=== PATIENT | female | born 1940 | race Caucasian/White ===

== ENCOUNTER → 2016-09-17 | Outpatient (CLI) | payer BC ==
[~2016-09-17] MED LIST: ACET500T57 PO; ALBU18002 INH; ALBU1AER9 INH; AMIT50TA3 PO; ASPI-435 PO; ASTN NAE; ATEN-174 PO; ATRIN INH; ATV/1 PO; AZEL137S6 NAE; B-CO1TAB29 PO; BUTTP TOP; CALC-354 PO; CHLO0.1222 PO; CLOP1TAB5 PO; CPR/500 PO; CYCL0.052 OPB; FERR1TAB23 PO; FEXO1TAB46 PO; FRS/80 PO; GABA1CAP PO; GABA300C19 PO; GUAI1TAB55 PO; HYDR0.5C TOP; HYDR1LOT6 TP; IMD/2 PO; IPRA17AE2 INH; KETO2CRE14 TOP; KETO2SHA5 TOP; L-Thyroxine PO; LEVO200T PO; LEVO50TA PO; LORA-741 PO; MCRK20 PO; MENTOIN TOP; METH1TAB5 PO; METO2.5T PO; MIRA1TAB3 PO; MOME6000 NAE; MONT1TAB3 PO; MULTTAB58 PO; NSNN50 NAE; NYSCR30 TOP; NYST100010 TOP; NZRCR TOP; PANT40TA PO; POLY1DRO2 OPB; POLY1POW2 PO; POLY1SOL6 OPB; POTA20TA13 PO; PRAV40TA2 PO; RANI150C4 PO; REPA1TAB10 PO; SERT100T PO; SPIR25TA89 PO; TAMS0.4C38 PO; TRAM-10 PO; TRAZ1TAB8 PO; ZINC40OI TOP; [UNRECOGNIZED DRUG - CODE] BU
== END | disposition home or self-care (01) ==
LOC: C.LABSPEC 16:53
PROVIDERS: ATTEND Internal Medicine
DX: J11.1 Influenza due to unidentified influenza virus with other respiratory manifestations (principal)

== ENCOUNTER → 2016-12-16 | Outpatient (CLI) | payer BC ==
[~2016-12-16] MED LIST changes: +GABA-1218 PO; -GABA300C19 PO; +METH-1305 PO; -METH1TAB5 PO; -TRAZ1TAB8 PO; +TRAZ1TAB9 PO
[2016-12-16 14:38] LABS: BASO % 0.3 %; BASO ABS # 0.02 K/uL (0-0.2); COMPLETE YES; EOS % 3.6 %; HEMATOCRIT 34.9 % (37-47); IG% 0.4 %; LYMPH % 17.8 %; LYMPH ABS # 1.23 K/uL (1.2-3.4); MEAN CORPUSCULAR HEMOGLOBIN 29.9 pg (25-34); MEAN CORPUSCULAR HGB CONC 34.4 g/dl (32-36); MEAN PLATELET VOLUME 9.5 fL (7.4-10.4); MONO % 9.6 %; NEUT % 68.3 %; PLATELET COUNT 222 K/uL (130-400); RED BLOOD COUNT 4.01 M/uL (4.2-5.4); WHITE BLOOD COUNT 6.91 K/uL (4.8-10.8)
[2016-12-16 14:46] LABS: ALT/SGPT 23 U/L (12-78); BLOOD UREA NITROGEN 10 mg/dl (7-18); BUN/CREATININE RATIO 9.7 (10-20); CARBON DIOXIDE 30 mmol/L (21-32); CHLORIDE 95 mmol/L (98-107); CHOLESTEROL 144 mg/dl (0-200); GLUCOSE 93 mg/dl (70-99); POTASSIUM 4.9 mmol/L (3.5-5.1); SODIUM 132 mmol/L (136-145)
[2016-12-16 14:56] LABS: ALB/GLOB RATIO 1.3 (0.9-2); ALKALINE PHOSPHATASE 64 U/L (45-117); AST/SGOT 20 U/L (15-37); CHOLESTEROL/HDL RATIO 2.4; HDL CHOLESTEROL 60 mg/dl; LDL CHOLESTEROL CALCULATED 63 mg/dl; TRIGLYCERIDES 103 mg/dl (0-150); VERY LOW DENSITY LIPOPROT CALC 21 mg/dl
[2016-12-17 05:53] LABS: ESTIMATED AVERAGE GLUCOSE 114 mg/dl; HA1C FLAG Normal (Normal)
== END ==
LOC: C.LAB1850 12:44
PROVIDERS: ATTEND Internal Medicine
DX: E03.9 Hypothyroidism, unspecified (principal); E78.5 Hyperlipidemia, unspecified; E11.59 Type 2 diabetes mellitus with other circulatory complications; D64.9 Anemia, unspecified; M81.0 Age-related osteoporosis without current pathological fracture

== ENCOUNTER → 2017-01-05 | Outpatient (CLI) | payer BC ==
[2017-01-05 09:35] LABS: BLOOD UREA NITROGEN 14 mg/dl (7-18); BUN/CREATININE RATIO 14.1 (10-20); CARBON DIOXIDE 30 mmol/L (21-32); CHLORIDE 96 mmol/L (98-107); CREATININE 0.98 mg/dl (0.60-1.20); GLUCOSE 108 mg/dl (70-99); POTASSIUM 3.2 mmol/L (3.5-5.1); SODIUM 134 mmol/L (136-145)
[2017-01-05 09:54] LABS: CALCIUM 8.8 mg/dl (8.5-10.1)
== END | disposition home or self-care (01) ==
LOC: C.LABSPEC 08:24
PROVIDERS: ATTEND Internal Medicine
DX: I50.32 Chronic diastolic (congestive) heart failure (principal)

== ENCOUNTER → 2017-04-06 | Outpatient (CLI) | payer BC ==
[~2017-04-06] MED LIST changes: -GABA-1218 PO; +GABA300C19 PO; -METH-1305 PO; +METH1TAB5 PO; +TRAZ1TAB8 PO; -TRAZ1TAB9 PO
[2017-04-06 17:29] LABS: URINE APPEARANCE TURBID (CLEAR); URINE BILIRUBIN NEG (NEG); URINE COLOR DK YELLOW; URINE EPITHELIAL CELL AUTO >30 /lpf (0-5); URINE NITRITE NEG (NEG); URINE PH 6.5 (4.5-7.5); URINE SPECIFIC GRAVITY 1.022 (1.000-1.030); UROBILINOGEN NEG (NEG); ZZUR CULT IF INDIC CLEAN CATCH YES
[2017-04-06 17:41] LABS: MANUAL MICROSCOPIC REQUIRED? NO; REVIEW REQ? YES
== END | disposition home or self-care (01) ==
LOC: C.LAB1850 15:47
PROVIDERS: ATTEND Registered Nurse
DX: R10.9 Unspecified abdominal pain (principal); E87.6 Hypokalemia

== ENCOUNTER → 2017-04-08 | Outpatient (CLI) | payer BC ==
--- NOTE | 2017-04-08 09:29 | DIAGNOSTIC IMAGING REPORT ---
(RENAL)RETROPERITON COMP CLINICAL HISTORY: 76 years-old Female presenting with FLANK PAIN, MICROSCOPIC HEMATURIA. TECHNIQUE: Real-time grayscale and limited color Doppler ultrasound imaging of the kidneys and bladder was performed. COMPARISON: CT from 01/23/2010. FINDINGS: Right kidney: Normal echogenicity. Right kidney measures 11.2 cm. No hydronephrosis. No convincing evidence of calculus or mass. Left kidney: Normal echogenicity, although suggestion of expansion of the renal sinus fat with slight cortical thinning. Left kidney measures 11.9 cm. No hydronephrosis. No convincing evidence of calculus or mass. Bladder: Protrusion along the posterior bladder wall with hyperechogenic bowel mucosa and intraluminal stool indicating bowel origin. Bilateral ureteral jets present. Other: None. IMPRESSION: 1. Essentially normal renal ultrasound. No obstruction. 2. Possible constipation. Electronically signed by: Michael Mast M.D. 04/08/2017 9:27 AM Dictated Date/Time: 04/08/2017 9:20 AM
[2017-04-08 10:09] LABS: ALT/SGPT 20 U/L (12-78); AST/SGOT 18 U/L (15-37); BLOOD UREA NITROGEN 15 mg/dl (7-18); BUN/CREATININE RATIO 15.5 (10-20); CALCIUM 8.6 mg/dl (8.5-10.1); CARBON DIOXIDE 33 mmol/L (21-32); CHLORIDE 90 mmol/L (98-107); GLUCOSE 109 mg/dl (70-99); POTASSIUM 3.4 mmol/L (3.5-5.1); SODIUM 129 mmol/L (136-145)
[2017-04-08 10:13] LABS: ALB/GLOB RATIO 1.1 (0.9-2); ALKALINE PHOSPHATASE 67 U/L (45-117)
== END | disposition home or self-care (01) ==
LOC: C.ULTR 07:46
PROVIDERS: ATTEND Internal Medicine
DX: R31.29 Other microscopic hematuria (principal); R10.9 Unspecified abdominal pain; I10 Essential (primary) hypertension

== ENCOUNTER 2017-04-12 21:21 | Emergency (ER) | payer BC ==
[~2017-04-12] VITALS: Ht 153.7 cm; Wt 109.7 kg
[~2017-04-12 21:21] MED LIST changes: -ALBU18002 INH; -ASTN NAE; -ATRIN INH; -BUTTP TOP; -CPR/500 PO; -CYCL0.052 OPB; -GABA300C19 PO; -GUAI1TAB55 PO; -HYDR1LOT6 TP; -IMD/2 PO; -L-Thyroxine PO; -LORA-741 PO; -METH1TAB5 PO; -MIRA1TAB3 PO; -MOME6000 NAE; -NYSCR30 TOP; -NYST100010 TOP; -NZRCR TOP; -POLY1DRO2 OPB; -POLY1POW2 PO; -POLY1SOL6 OPB; -POTA20TA13 PO; -TAMS0.4C38 PO; -TRAM-10 PO; -ZINC40OI TOP; -[UNRECOGNIZED DRUG - CODE] BU
[2017-04-12 21:29] VITALS: TEMP 36.5; Ht 153.7 cm; Wt 109.7 kg
[2017-04-12] MEDS ORDERED: FENTANYL CITRATE INJ 50 MCG/1 ML 2 ML VIAL IV STA (22:05)
--- NOTE | 2017-04-12 22:13 | EMERGENCY ROOM VISIT NOTE ---
History Report prepared by Nellie: Annemarie Schaffer Under the Supervision of: Dr. Irineo Brooke M.D. First contact with patient: 21:35 Chief Complaint: ABDOMINAL PAIN Stated Complaint: ABD PAIN, NAUSEA, DISTENTION History of Present Illness The patient is a 76 year old female who presents to the Emergency Room with complaints of constant abdominal pain beginning 3 weeks ago. The patient's daughter states that the patient started complaining of some right sided flank pain and abdominal pain 3 weeks ago. She reports that she went to see her PCP and got a urine test that was positive and was put on antibiotics. She notes that she got an ultrasound of her kidneys that was normal but showed stool and her PCP advised follow up with gastroenterology. The patient states that she has decreased appetite and has a feeling of blockage in her stomach when she eats. She notes that she has diarrhea and some worsened leg swelling. She complains of nausea and intermittent chest tightness with her anxiety. The patient denies any shortness of breath and vomiting. She notes that she has a history of decreased blood flow in her omentum 7 years ago, PE, prolapsed valve , TIA, and UTI. She states that she is on a water pill and blood thinners. She notes no history of gallstones, kidney stones, cholecystectomy, and appendectomy. Source of History: patient Onset: 3 weeks ago Position: abdomen Timing: constant Associated Symptoms: + chest pain, + nausea, + diarrhea, No SOB, No vomiting Note: Pt complains of flank pain, decreased appetite, and leg swelling. Review of Systems See HPI for pertinent positives and negatives. A total of ten systems were reviewed and were otherwise negative. Past Medical & Surgical Medical Problems: (1) Cardiac valve prolapse (2) Diabetes (3) Pulmonary embolism (4) TIA (transient ischemic attack) (5) UTI (urinary tract infection) Family History No pertinent family history stated. Social History Smoking Status: Former Smoker Alcohol Use: none Drug Use: none Marital Status: Housing Status: assisted living Occupation Status: retired Current/Historical Medications Scheduled Albuterol Sulfate (Proair Respiclick), 2 PUFFS INH QID Amitriptyline Hcl (Amitriptyline Hcl), 25 MG PO HS Aspirin (Aspirin 81), 81 MG PO DAILY Atenolol (Tenormin), 50 MG PO DAILY Azelastine Hcl (Astelin Nasal [place]), 2 SPRAYS [place]CADIO BID B-Complex Vitamins (Vitamin B-Complex), 1 TAB PO DAILY Calcium Carbonate-Cholecalcife (Caltrate 600+D), 1 TAB PO BID Ciprofloxacin (Ciprofloxacin HCl), 500 MG PO BID Clopidogrel Bisulfate (Plavix), 75 MG PO DAILY Cyclosporine (Ophth) (Restasis), 1 DROP OPB BID Ferrous Sulfate (Iron), 325 MG PO 3XWK Gabapentin (Neurontin), 300 MG PO TID Hydrocortisone (Topical) (Hydrocortisone), 1 APPLN TP BID Ipratropium [place] (Atrovent Hfa), 2 PUFFS INH QID Ketoconazole (Topical) (Nizoral), 1 APPLN TOP DAILY Methenamine Hippurate (Methenamine Hippurate), 1 GM PO DAILY Metolazone (Zaroxolyn), 2.5 MG PO 2XWK Mirabegron (Myrbetriq Er), 50 MG PO DAILY Mometasone Furoate (Nasal) (Mometasone Furoate), 1 SPRAY ARCADIO BID Montelukast Sodium (Singulair), 10 MG PO HS Multiple Vitamin (Multivitamin), 1 TAB PO DAILY Pantoprazole Sodium (Protonix), 40 MG PO BID Polyethylene Glycol-Propylene (Systane Gel), 1 DROP OPB HS Polyethylene Glycol-Propylene (Systane Ultra), 1 DROP OPB TID Potassium Chloride Microencaps (Potassium Chloride Er), 30 MEQ PO BID Ranitidine Hcl (Ranitidine Hcl), 150 MG PO BID Sertraline Hcl (Zoloft), 200 MG PO DAILY Spironolactone (Aldactone), 25 MG PO DAILY Tamsulosin Hcl (Flomax), 0.4 MG PO DAILY Trazodone Hcl (Desyrel), 200 MG PO HS [L-Thyroxine], 250 MCG PO DAILY Scheduled PRN Acetaminophen (Acetaminophen), 1,000 MG PO Q8 PRN for Pain Artificial Saliva (Act Dry Mouth), 1 TERRENCE BU UD PRN for Dry Mouth Chlorhexidine Gluconate (Mouth (Peridex), 2.5 ML PO UD PRN for Oral Health Guaifenesin Ext Rel (Mucinex Ext Rel), 600 MG PO Q12 PRN for Congestion Ketoconazole (Ketoconazole), 1 APPLN TOP UD PRN for Skin Irritation Loperamide Hcl (Imodium), 2 MG PO UD PRN for Loose Stools Lorazepam (Ativan), 0.5 MG PO HS PRN for Anxiety/Insomnia Menthol-Zinc Oxide (Calmoseptine), 1 APPLN TOP TID PRN for Skin Breakdown Prevention Metolazone (Zaroxolyn), 2.5 MG PO DAILY PRN for Weight Gain >2 Pounds Nystatin (Nystatin Cream), 1 APPLN TOP BID PRN for Excoriation Nystatin (Topical) (Nystop), 1 APPLN TOP BID PRN for Rash Polyethylene Glycol 3350 (Bulk (Polyethylene Glycol 3350), 17 GM PO DAILY PRN for Constipation Tramadol (Ultram), 50 MG PO BID PRN for Severe Pain Zinc Oxide (Topical) (Boudreauxs Butt Paste), 1 APPLN TOP UD PRN for Pressure Ulcer Prevention Zinc Oxide (Topical) (Desitin), 1 APPLN TOP UD PRN for Protective Barrier Allergies Coded Allergies: KODAK Inhibitors (Verified Allergy, Unknown, ?, 04/12/17) Physical Exam Vital Signs Date Time Temp Pulse Resp B/P (MAP) Pulse Ox O2 Delivery O2 Flow Rate FiO2 04/13/17 03:10 76 18 144/76 96 04/13/17 00:20 68 20 114/72 95 Room Air 04/12/17 22:25 64 20 90/71 94 Room Air 04/12/17 22:25 94 Room Air 04/12/17 21:29 36.5 65 18 127/63 97 Room Air Physical Exam GENERAL: Awake, alert, chronically ill-appearing, fatigue, in no distress HENT: Normocephalic, atraumatic. Dry mucous membranes. EYES: Normal conjunctiva. Sclera non-icteric. NECK: Supple. No nuchal rigidity. FROM. No JVD. RESPIRATORY: Decreased sounds in bases with isolated wheeze. CARDIAC: Regular rate, normal rhythm. Extremities warm and well perfused. Pulses equal. ABDOMEN: Soft, non-distended. No tenderness to palpation. No rebound or guarding. No masses. RECTAL: Deferred. MUSCULOSKELETAL: Chest examination reveals no tenderness. The back is symmetrical on inspection without obvious abnormality. Abdomen is mildly diffusely tender, no peritoneal signs, bilateral CVA tenderness. LOWER EXTREMITIES: Calves are equal size bilaterally and non-tender. 1+ pitting edema bilateral lower extremities. No discoloration. NEURO: Normal sensorium. No sensory or motor deficits noted. SKIN: No rash or jaundice noted. Medical Decision & Procedures ER Provider Diagnostic Interpretation: Radiology results as stated below per my review and radiologist interpretation: CHEST ONE VIEW PORTABLE FINDINGS: Mild prominence of the cardiac silhouette, unchanged. Mildly low lung volumes with hypoventilatory changes. Mild bronchial wall thickening suggested. Minimal right basilar opacity may be present. No large effusion or pneumothorax. Previously noted fracture of the left 10th rib is not apparent. Metallic foreign body projects over the base of the neck, possibly dental device. IMPRESSION: 1. Mildly low lung volumes with hypoventilatory changes. 2. Possible right basilar atelectasis. Electronically signed by: Michael Mast M.D. 04/12/2017 10:39 PM Dictated Date/Time: 04/12/2017 10:[address] ABDOMEN & PELVIS: No evidence of bowel obstruction or CT findings to suggest ischemic bowel. No pneumatosis, portal venous gas, free intraperitoneal air or significant bowel wall thickening. Moderate Stool throughout the colon with air-stool levels which may indicate stasis/constipation or diarrheal state. Distal colon is underdistended which limits evaluation for subtle wall thickening. Recommend clinical correlation. Appendix is prominent measuring up to 1cm in maximum diameter. However, appendix contains air and stool similar to the adjacent cecum. No periappendiceal inflammatory changes are present. Acute appendicitis is unlikely although clinical correlation is recommended. Status post hysterectomy. Device is present within vaginal canal, likely a pessary device. Scattered atherosclerotic vascular disease. No AAA. Laboratory Results 04/12/17 22:15 Red Blood Count 4.00, Mean Corpuscular Volume 86.8, Mean Corpuscular Hemoglobin 29.5, Mean Corpuscular Hemoglobin Concent 34.0, Mean Platelet Volume 9.0, Neutrophils (%) (Auto) 68.2, Lymphocytes (%) (Auto) 20.4, Monocytes (%) (Auto) 7.4, Eosinophils (%) (Auto) 3.4, Basophils (%) (Auto) 0.3, Neutrophils # (Auto) 5.05, Lymphocytes # (Auto) 1.51, Monocytes # (Auto) 0.55, Eosinophils # (Auto) 0.25, Basophils # (Auto) 0.02 04/12/17 22:15 Test 04/12/17 22:15 8/2/17 00:05 White Blood Count 7.40 K/uL (4.8-10.8) Red Blood Count 4.00 M/uL (4.2-5.4) Hemoglobin 11.8 g/dL (12.0-16.0) Hematocrit 34.7 % (37-47) Mean Corpuscular Volume 86.8 fL (80-100) Mean Corpuscular Hemoglobin 29.5 pg (25-34) Mean Corpuscular Hemoglobin Concent 34.0 g/dl (32-36) Platelet Count 215 K/uL (130-400) Mean Platelet Volume 9.0 fL (7.4-10.4) Neutrophils (%) (Auto) 68.2 % Lymphocytes (%) (Auto) 20.4 % Monocytes (%) (Auto) 7.4 % Eosinophils (%) (Auto) 3.4 % Basophils (%) (Auto) 0.3 % Neutrophils # (Auto) 5.05 K/uL (1.4-6.5) Lymphocytes # (Auto) 1.51 K/uL (1.2-3.4) Monocytes # (Auto) 0.55 K/uL (0.11-0.59) Eosinophils # (Auto) 0.25 K/uL (0-0.5) Basophils # (Auto) 0.02 K/uL (0-0.2) RDW Standard Deviation 42.8 fL (36.4-46.3) RDW Coefficient of Variation 13.4 % (11.5-14.5) Immature Granulocyte % (Auto) 0.3 % Immature Granulocyte # (Auto) 0.02 K/uL (0.00-0.02) Anion Gap 8.0 mmol/L (3-11) Est Creatinine Clear Calc Drug Dose 54.3 ml/min Estimated GFR () 63.4 Estimated GFR (Non- 54.7 BUN/Creatinine Ratio 12.5 (10-20) Lactic Acid Level 1.0 mmol/L (0.4-2.0) Calcium Level 8.7 mg/dl (8.5-10.1) Total Bilirubin 0.3 mg/dl (0.2-1) Direct Bilirubin < 0.1 mg/dl (0-0.2) Aspartate Amino Transf (AST/SGOT) 23 U/L (15-37) Alanine Aminotransferase (ALT/SGPT) 23 U/L (12-78) Alkaline Phosphatase 70 U/L (45-117) Troponin I < 0.015 ng/ml (0-0.045) Pro-B-Type Natriuretic Peptide 360 pg/ml (0-1800) Total Protein 7.6 gm/dl (6.4-8.2) Albumin 3.9 gm/dl (3.4-5.0) Lipase 128 U/L (73-393) Urine Color YELLOW Urine Appearance CLEAR (CLEAR) Urine pH 6.5 (4.5-7.5) Urine Specific Ferdinand 1.024 (1.000-1.030) Urine Protein NEG (NEG) Urine Glucose (UA) NEG (NEG) Urine Ketones NEG (NEG) Urine Occult Blood NEG (NEG) Urine Nitrite NEG (NEG) Urine Bilirubin NEG (NEG) Urine Urobilinogen NEG (NEG) Urine Leukocyte Esterase NEG (NEG) Urine WBC (Auto) 0 /hpf (0-5) Urine RBC (Auto) 0-4 /hpf (0-4) Urine Hyaline Casts (Auto) 0 /lpf (0-5) Urine Epithelial Cells (Auto) 5-10 /lpf (0-5) Urine Bacteria (Auto) NEG (NEG) Urine Osmolality 252 mOms/kg (500-800) Laboratory results reviewed by me Medications Administered Medications (Trade) Dose Ordered Sig/Samir Route Start Time Stop Time Status Last Admin Dose Admin Fentanyl Citrate (Fentanyl Inj) 50 mcg NOW STAT IV 04/12/17 22:05 04/12/17 22:07 DC 04/12/17 22:21 50 MCG ECG Indication: abdominal pain Rate (beats per minute): 62 Rhythm: normal sinus Findings: no acute ischemic change, other (normal axis) Comparison ECG Date: 24-JAN-2010 Change: no significant change ED Course 2134: The patient was evaluated in room C9. A complete history and physical exam was performed. 2204: Fentanyl Inj 50mcg IV. I reevaluated the patient. Discussed results and discharge instructions: She verbalized understanding and agreement. The patient is ready for discharge. Medical Decision I reviewed the patient's past medical history, medications, and the nursing notes as described above. Differential diagnosis includes renal stone, pyelonephritis, mesenteric ischemia , bowel obstruction, diverticulitis, less likely AAA or ACS. Patient is a 76-year-old woman with a past medical history of ischemic mentum present or department with worsening abdominal pain over the past couple of days in the setting of pain that has been ongoing for several weeks. Rash to the emergency department mildly uncomfortable but in no acute distress. Patient is afebrile with stable vital signs otherwise. On exam the patient has generalized abdominal tenderness as well as bilateral CVA tenderness to palpation. Patient also reports constant sensation of chest pressure as well. However EKG unremarkable and chest x-ray with atelectasis and otherwise negative negative. WBC and lactate within normal limits. Trop negative in the setting of several days of constant sx. UA negative. CT scan negative for any acute findings. Sodium 129 today which was unchanged from several days prior. Urine osmolality 200s indicating the patient is not concentrating her urine just a component of SIADH. Patient instructed to avoid excessive water intake until she can be reevaluated by her doctor. Discussed with patient and patient' s daughter option for hospital observation versus discharge and close PCP follow -up. Patient feeling okay for home and agreeable for discharge. Patient discharged per instructions. Medication Reconcilliation Current Medication List: was personally reviewed by me Blood Pressure Screening Patient's blood pressure: Normal blood pressure Blood pressure disposition: Did not require urgent referral Impression Primary Impression: Generalized abdominal pain Additional Impression: Hyponatremia Scribe Attestation The scribe's documentation has been prepared under my direction and personally reviewed by me in its entirety. I confirm that the note above accurately reflects all work, treatment, procedures, and medical decision making performed by me. Departure Information Dispostion Home / Self-Care Referrals No Doctor, Assigned (PCP) Patient Instructions Abdominal Pain, ED Hyponatremia, Hyponatremia Dc, [facility] Additional Instructions Please follow up with your primary care physician in the next 1-3 days for reevaluation and to repeat your sodium test, and possible nephrology referral. Your sodium was 129 today which was unchanged from 3 days ago. Otherwise, your exam, lab results, and CT scan did not show signs of an emergent condition at this time. Avoid excessive water intake as this may make your sodium level declined. Return to the emergency department for worsening symptoms as described in the accompanying instructions. Problem Qualifiers
[2017-04-12] MEDS ORDERED: OPTIRAY 320 IV PRN (22:15)
[2017-04-12 22:25] VITALS: O2SAT 94
[2017-04-12 22:31] LABS: BASO % 0.3 %; BASO ABS # 0.02 K/uL (0-0.2); COMPLETE YES; EOS % 3.4 %; HEMATOCRIT 34.7 % (37-47); IG% 0.3 %; LYMPH % 20.4 %; LYMPH ABS # 1.51 K/uL (1.2-3.4); MEAN CELL VOLUME 86.8 fL (80-100); MEAN CORPUSCULAR HEMOGLOBIN 29.5 pg (25-34); MONO % 7.4 %; NEUT % 68.2 %; PLATELET COUNT 215 K/uL (130-400)
[2017-04-12] MEDS ORDERED: ASTN NAE (22:35)
[2017-04-12] MEDS ORDERED: CPR/500 PO (22:35)
[2017-04-12] MEDS ORDERED: ATRIN INH (22:35)
[2017-04-12] MEDS ORDERED: BUTTP TOP (22:35)
[2017-04-12] MEDS ORDERED: [UNRECOGNIZED DRUG - CODE] BU (22:35)
[2017-04-12] MEDS ORDERED: MENTOIN TOP (22:35)
--- NOTE | 2017-04-12 22:41 | DIAGNOSTIC IMAGING REPORT ---
CHEST ONE VIEW PORTABLE CLINICAL HISTORY: 76 years-old Female presenting with cp, nausea. TECHNIQUE: Portable upright AP view of the chest was obtained. COMPARISON: 06/27/2011. FINDINGS: Mild prominence of the cardiac silhouette, unchanged. Mildly low lung volumes with hypoventilatory changes. Mild bronchial wall thickening suggested. Minimal right basilar opacity may be present. No large effusion or pneumothorax. Previously noted fracture of the left 10th rib is not apparent. Metallic foreign body projects over the base of the neck, possibly dental device. IMPRESSION: 1. Mildly low lung volumes with hypoventilatory changes. 2. Possible right basilar atelectasis. Electronically signed by: Michael Mast M.D. 04/12/2017 10:39 PM Dictated Date/Time: 04/12/2017 10:36 PM
[2017-04-12 22:52] LABS: BLOOD UREA NITROGEN 13 mg/dl (7-18); BUN/CREATININE RATIO 12.5 (10-20); CALCIUM 8.7 mg/dl (8.5-10.1); CARBON DIOXIDE 28 mmol/L (21-32); CHLORIDE 93 mmol/L (98-107); GLUCOSE 109 mg/dl (70-99); SODIUM 129 mmol/L (136-145)
[2017-04-12 22:53] LABS: ALT/SGPT 23 U/L (12-78)
[2017-04-12] MEDS ORDERED: ZINC40OI TOP (22:53)
[2017-04-12] MEDS ORDERED: L-Thyroxine PO (22:53)
[2017-04-12] MEDS ORDERED: HYDR1LOT6 TP (22:53)
[2017-04-12] MEDS ORDERED: NZRCR TOP (22:53)
[2017-04-12] MEDS ORDERED: GABA300C19 PO (22:53)
[2017-04-12] MEDS ORDERED: IMD/2 PO (22:53)
[2017-04-12] MEDS ORDERED: METH1TAB5 PO (22:53)
[2017-04-12] MEDS ORDERED: LORA-741 PO (22:53)
[2017-04-12 22:58] LABS: ALKALINE PHOSPHATASE 70 U/L (45-117); AST/SGOT 23 U/L (15-37)
[2017-04-12] MEDS ORDERED: GUAI1TAB55 PO (22:59)
[2017-04-12] MEDS ORDERED: MIRA1TAB3 PO (22:59)
[2017-04-12] MEDS ORDERED: MOME6000 NAE (23:04)
[2017-04-12] MEDS ORDERED: POLY1POW2 PO (23:04)
[2017-04-12] MEDS ORDERED: POTA20TA13 PO (23:04)
[2017-04-12] MEDS ORDERED: NYSCR30 TOP (23:11)
[2017-04-12] MEDS ORDERED: NYST100010 TOP (23:11)
[2017-04-12] MEDS ORDERED: TRAM-10 PO (23:16)
[2017-04-12] MEDS ORDERED: TAMS0.4C38 PO (23:16)
[2017-04-12] MEDS ORDERED: ALBU18002 INH (23:18)
[2017-04-12] MEDS ORDERED: POLY1DRO2 OPB (23:22)
[2017-04-12] MEDS ORDERED: POLY1SOL6 OPB (23:22)
[2017-04-12] MEDS ORDERED: CYCL0.052 OPB (23:22)
[2017-04-13 00:42] LABS: URINE APPEARANCE CLEAR (CLEAR); URINE BILIRUBIN NEG (NEG); URINE COLOR YELLOW; URINE NITRITE NEG (NEG); URINE PH 6.5 (4.5-7.5); URINE SPECIFIC GRAVITY 1.024 (1.000-1.030); UROBILINOGEN NEG (NEG); ZZURINE CULT IF INDIC CATH NO
[2017-04-13 00:43] LABS: MANUAL MICROSCOPIC REQUIRED? NO; REVIEW REQ? NO
[2017-04-13 03:10] VITALS: BP 144/76; PULSE 76; O2SAT 96
--- NOTE | 2017-04-13 07:52 | DIAGNOSTIC IMAGING REPORT ---
CT SCAN OF THE ABDOMEN AND PELVIS WITH IV CONTRAST CLINICAL HISTORY: Generalized abdominal pain. COMPARISON STUDY: Abdominal CT dated 01/23/2010 TECHNIQUE: Following the IV administration of 121 cc of Optiray 320, CT scan of the abdomen and pelvis is performed from the lung bases to the proximal femora. Images are reviewed in the axial, sagittal, and coronal planes. IV contrast was administered without complication. Automated dose control exposure was utilized. A dose lowering technique was utilized adhering to the principles of ALARA. CT DOSE: 1488.47 mGy.cm FINDINGS: Lung bases: The heart is top normal in size and without pericardial effusion. Coronary arteries are densely calcified. There is a small hiatal hernia. The lung bases are clear noting dependent atelectasis. Liver: The contrast-enhanced liver is normal in size, contour, and attenuation. There is no intrahepatic biliary ductal dilatation. The hepatic veins and portal veins are patent. Gallbladder: Unremarkable. Spleen: Normal in size and attenuation. Pancreas: Atrophic and grossly unremarkable. Adrenal glands: Unremarkable. Kidneys: There is asymmetric cortical atrophy of the left kidney as compared to the right. There is no hydronephrosis. The kidneys enhance symmetrically. Abdominal vasculature: The abdominal aorta is normal in course and caliber noting mild to moderate atherosclerotic calcification. Bowel: There is laxity of the ventral pelvic wall with protrusion of small bowel loops. No bowel obstruction is seen. There are scattered colonic diverticula without CT evidence of acute diverticulitis. Mild to moderate colonic fecal retention is observed. The appendix is well-visualized and normal. Peritoneum: There is no intraperitoneal free air or abdominal ascites. Lymphadenopathy: None. Pelvic viscera: The bladder is normal as visualized. The uterus is surgically absent. A vaginal pessary is in place. No adnexal lesion is seen. Skeletal structures: The skeletal structures are osteopenic. There is moderate to advanced lumbosacral spondylosis. Arthritic change is present in the hips and sacroiliac joints. Sclerosis is noted at the pubic symphysis. A left hemitransitional lumbosacral segment is incidentally noted. No lytic or blastic lesions are seen. There are healed right posterior rib fractures. IMPRESSION: 1. There are no acute infectious or inflammatory findings in the abdomen or pelvis. 2. Chronic changes as above. Electronically signed by: Jimbo Vázquez M.D. 04/13/2017 7:51 AM Dictated Date/Time: 04/13/2017 7:45 AM
== END 2017-04-13 03:11 | disposition home or self-care (01) ==
LOC: C.EDB 21:23 → C.EDC 04-13 03:11
DX: R10.84 Generalized abdominal pain (principal); E87.1 Hypo-osmolality and hyponatremia; E11.9 Type 2 diabetes mellitus without complications; Z86.711 Personal history of pulmonary embolism; Z86.73 Personal history of transient ischemic attack (TIA), and cerebral infarction without residual deficits; Z87.440 Personal history of urinary (tract) infections; Z87.891 Personal history of nicotine dependence; Z79.82 Long term (current) use of aspirin; Z79.899 Other long term (current) drug therapy

== ENCOUNTER → 2017-06-22 | Outpatient (CLI) | payer BC ==
[~2017-06-22] MED LIST changes: +ALBU18002 INH; -ALBU1AER9 INH; +ASTN NAE; +ATRIN INH; -ATV/1 PO; -AZEL137S6 NAE; +BUTTP TOP; +CPR/500 PO; +CYCL0.052 OPB; -FEXO1TAB46 PO; -FRS/80 PO; -GABA1CAP PO; +GABA300C19 PO; +GUAI1TAB55 PO; -HYDR0.5C TOP; +HYDR1LOT6 TP; +IMD/2 PO; -IPRA17AE2 INH; -KETO2CRE14 TOP; +L-Thyroxine PO; -LEVO200T PO; -LEVO50TA PO; +LORA-741 PO; -MCRK20 PO; +METH1TAB5 PO; +MIRA1TAB3 PO; +MOME6000 NAE; -NSNN50 NAE; +NYSCR30 TOP; +NYST100010 TOP; +NZRCR TOP; +POLY1DRO2 OPB; +POLY1POW2 PO; +POLY1SOL6 OPB; +POTA20TA13 PO; -PRAV40TA2 PO; -REPA1TAB10 PO; +TAMS0.4C38 PO; +TRAM-10 PO; +ZINC40OI TOP; +[UNRECOGNIZED DRUG - CODE] BU
[2017-06-22 09:12] LABS: BLOOD UREA NITROGEN 12 mg/dl (7-18); CALCIUM 8.9 mg/dl (8.5-10.1); CARBON DIOXIDE 29 mmol/L (21-32); CHLORIDE 93 mmol/L (98-107); GLUCOSE 104 mg/dl (70-99); POTASSIUM 3.5 mmol/L (3.5-5.1); SODIUM 130 mmol/L (136-145)
== END | disposition home or self-care (01) ==
LOC: C.LABSPEC 08:50
PROVIDERS: ATTEND Internal Medicine
DX: E87.1 Hypo-osmolality and hyponatremia (principal)

== ENCOUNTER → 2017-08-11 | Outpatient (CLI) | payer BC ==
[~2017-08-11] MED LIST changes: +GABA-1218 PO; -GABA300C19 PO; +METH-1305 PO; -METH1TAB5 PO; -TRAZ1TAB8 PO; +TRAZ1TAB9 PO
== END | disposition home or self-care (01) ==
LOC: C.LABSPEC 13:04
PROVIDERS: ATTEND Physician Assistant
DX: R15.9 Full incontinence of feces (principal)

== ENCOUNTER → 2017-10-12 | Outpatient (CLI) | payer BC ==
[~2017-10-12] MED LIST changes: -ACET500T57 PO; +ACET500T58 PO; +TRAZ-122 PO; -TRAZ1TAB9 PO
== END | disposition home or self-care (01) ==
LOC: C.LABSPEC 09:34
PROVIDERS: ATTEND Internal Medicine
DX: R35.0 Frequency of micturition (principal); R39.15 Urgency of urination

== ENCOUNTER → 2017-10-28 | Outpatient (CLI) | payer BC | END | disposition home or self-care (01) | LOC: C.LABSPEC 13:18 | PROVIDERS: ATTEND Internal Medicine | DX: N39.0 Urinary tract infection, site not specified (principal) ==

== ENCOUNTER → 2017-11-22 | Outpatient (CLI) | payer BC | END | disposition home or self-care (01) | LOC: C.LABSPEC 12:50 | PROVIDERS: ATTEND Nurse Practitioner Adult Health | DX: N39.0 Urinary tract infection, site not specified (principal) ==

== ENCOUNTER 2017-12-03 10:51 | Emergency (ER) | payer BC ==
[2017-12-03 10:57] VITALS: TEMP 36.9; Ht 154.9 cm
[2017-12-03 11:17] VITALS: O2SAT 98
[2017-12-03] MEDS ORDERED: ALBUT/IPRATROP 3MG/0.5MG NEB 3 ML VIAL INH STA (11:33)
[2017-12-03] MEDS ORDERED: DULO-24 PO (11:40)
[2017-12-03] MEDS ORDERED: SERT50TA PO (11:40)
[2017-12-03] MEDS ORDERED: MOML PO (11:40)
[2017-12-03] MEDS ORDERED: ZINC40OI13 TOP (11:40)
[2017-12-03] MEDS ORDERED: TRMCR130WC TOP (11:40)
[2017-12-03] MEDS ORDERED: LEVO125T5 PO (11:40)
[2017-12-03] MEDS ORDERED: PRMVC PV (11:40)
[2017-12-03] MEDS ORDERED: PSYL48.59 PO (11:40)
--- NOTE | 2017-12-03 12:46 | DIAGNOSTIC IMAGING REPORT ---
CHEST 2 VIEWS ROUTINE CLINICAL HISTORY: cough, wheezing dyspnea COMPARISON STUDY: 2016 FINDINGS: Mild cardia megaly. Mild bibasilar interstitial prominence. Mid and upper lungs are clear. IMPRESSION: Mild cardiomegaly. Minimal bibasilar interstitial infiltrative change. The above report was generated using voice recognition software. It may contain grammatical, syntax or spelling errors. Electronically signed by: Madi Hanson M.D. 12/03/2017 12:44 PM Dictated Date/Time: 12/03/2017 12:44 PM
[2017-12-03] MEDS ORDERED: TRAMADOL HCL 50 MG TAB PO STA (12:48)
[2017-12-03] MEDS ORDERED: ACETAMINOPHEN 325 MG TAB PO STA (12:48)
[2017-12-03 12:54] LABS: BASO % 0.1 %; BASO ABS # 0.01 K/uL (0-0.2); EOS ABS # 0.38 K/uL (0-0.5); HEMATOCRIT 34.4 % (37-47); HEMOGLOBIN 12.1 g/dL (12.0-16.0); IG# 0.03 K/uL (0.00-0.02); LYMPH % 18.3 %; LYMPH ABS # 1.72 K/uL (1.2-3.4); MEAN CELL VOLUME 86.2 fL (80-100); MEAN CORPUSCULAR HEMOGLOBIN 30.3 pg (25-34); MEAN CORPUSCULAR HGB CONC 35.2 g/dl (32-36); MEAN PLATELET VOLUME 8.7 fL (7.4-10.4); MONO % 5.8 %; MONO ABS # 0.55 K/uL (0.11-0.59); NEUT % 71.5 %; NEUT ABS # 6.72 K/uL (1.4-6.5); PLATELET COUNT 202 K/uL (130-400); RED CELL DISTRIBUTION WIDTH CV 13.4 % (11.5-14.5); RED CELL DISTRIBUTION WIDTH SD 42.6 fL (36.4-46.3); WHITE BLOOD COUNT 9.41 K/uL (4.8-10.8)
[2017-12-03 13:08] VITALS: BP 101/59
[2017-12-03 13:11] LABS: ALBUMIN 3.7 gm/dl (3.4-5.0); ALT/SGPT 19 U/L (12-78); AST/SGOT 17 U/L (15-37); BLOOD UREA NITROGEN 11 mg/dl (7-18); CALCIUM 9.1 mg/dl (8.5-10.1); CARBON DIOXIDE 28 mmol/L (21-32); CREATININE 0.91 mg/dl (0.60-1.20); GLUCOSE 126 mg/dl (70-99); POTASSIUM 4.8 mmol/L (3.5-5.1); SODIUM 125 mmol/L (136-145)
[2017-12-03 13:13] LABS: ALKALINE PHOSPHATASE 80 U/L (45-117); TOTAL PROTEIN 7.9 gm/dl (6.4-8.2)
[2017-12-03] MEDS ORDERED: SODIUM CHLORIDE 0.9% 500ML 500 ML IV STA (13:24)
[2017-12-03] MEDS ORDERED: LEVO1TAB35 PO (13:51)
[2017-12-03] MEDS ORDERED: LEVOFLOXACIN 750 MG TAB PO ONE (14:00)
[2017-12-03 15:12] VITALS: PULSE 70; O2SAT 96
--- NOTE | 2017-12-03 17:22 | EMERGENCY ROOM VISIT NOTE ---
History First contact with patient: 11:16 Chief Complaint: ILLNESS Stated Complaint: POSSIBLE PNUEMONIA/GROSS HEMATURIA History of Present Illness The patient is a 77 year old white female who presents to the Emergency Room with complaints of wheezing, shortness of breath, and hematuria. Her daughter completes her today. Patient resides at [facility]. She was seen at an urgent care clinic today and was sent to the ED for evaluation for pneumonia. She has had cold type symptoms for a few days. She has had a persistent cough that is sometimes productive. She denies any fevers or sweats. Occasional chills. No nausea or vomiting. She has had 2 previous UTIs this month that were treated with Cipro. She has noticed dysuria over the last 2 days and today developed hematuria. She does have some urgency and incontinence. No abdominal pain or back pain. Review of Systems REVIEW OF SYSTEM: HEENT: No dizziness, visual problems, hearing loss, or tinnitus. There is no difficulty swallowing and no oral lesions are present. PULMONARY: Positive cough, shortness of breath, and sputum production. No hemoptysis. CARDIOVASCULAR: No chest pain, palpitations, or peripheral edema. GASTROINTESTINAL: No diarrhea, constipation, nausea, vomiting, or abdominal pain. GENITOURINARY: Positive dysuria, frequency, urgency and nocturia. NEUROLOGIC: No weakness, muscle tenderness, epilepsy or history of neurological problems. MUSCULOSKELETAL: No history of joint tenderness/swelling. No history of arthritis or arthralgias. SKIN: No rashes or lesions. PSYCHIATRIC: No history of depression or mental illness. ENDOCRINE: No history of thyroid disorders, or abnormal hair growth. Past Medical/Surgical History Medical Problems: (1) Balance disorder (2) Cardiac valve prolapse (3) Diabetes (4) Diabetic peripheral neuropathy associated with type 2 diabetes mellitus (5) Foot deformity (6) Foot pain (7) Loss of sensation (8) Pulmonary embolism (9) TIA (transient ischemic attack) (10) UTI (urinary tract infection) Family History Noncontributory. Social History Smoking Status: Former Smoker Alcohol Use: none Drug Use: none Marital Status: Housing Status: assisted living Occupation Status: retired Current/Historical Medications Scheduled Albuterol Sulfate (Proair Respiclick), 2 PUFFS INH QID Amitriptyline Hcl (Amitriptyline Hcl), 75 MG PO HS Aspirin (Aspirin 81), 81 MG PO DAILY Atenolol (Tenormin), 50 MG PO DAILY B-Complex Vitamins (Vitamin B-Complex), 1 TAB PO DAILY Calcium Carbonate-Cholecalcife (Caltrate 600+D), 1 TAB PO BID Clopidogrel Bisulfate (Plavix), 75 MG PO DAILY Cyclosporine (Ophth) (Restasis), 1 DROP OPB BID Duloxetine Hcl (Cymbalta), 40 MG PO DAILY Estrogens, Conjugated (Premarin), 1 APPLN PV MWF Ferrous Sulfate (Iron), 325 MG PO 3XWK Gabapentin (Neurontin), 300 MG PO TID Hydrocortisone (Topical) (Hydrocortisone), 1 APPLN TP BID Ipratropium [place] (Atrovent Hfa), 2 PUFFS INH QID Ketoconazole (Topical) (Nizoral), 1 APPLN TOP DAILY Levofloxacin (Levaquin), 750 MG PO DAILY Levothyroxine Sodium (Levothyroxine Sodium), 125 MCG PO DAILY Lorazepam (Ativan), 0.5 MG PO HS Methenamine Hippurate (Methenamine Hippurate), 1 GM PO DAILY Metolazone (Zaroxolyn), 2.5 MG PO 2XWK Mirabegron (Myrbetriq Er), 50 MG PO DAILY Mometasone Furoate (Nasal) (Mometasone Furoate), 1 SPRAY ARCADIO BID Montelukast Sodium (Singulair), 10 MG PO HS Multiple Vitamin (Multivitamin), 1 TAB PO DAILY Pantoprazole Sodium (Protonix), 40 MG PO BID Polyethylene Glycol-Propylene (Systane Gel), 1 DROP OPB HS Polyethylene Glycol-Propylene (Systane Ultra), 1 DROP OPB TID Potassium Chloride Microencaps (Potassium Chloride Er), 60 MEQ PO BID Psyllium (Metamucil), 1 TBS PO BID Ranitidine Hcl (Ranitidine Hcl), 150 MG PO BID Sertraline (Zoloft), 50 MG PO DAILY Spironolactone (Aldactone), 25 MG PO DAILY Tamsulosin Hcl (Flomax), 0.4 MG PO DAILY Trazodone Hcl (Desyrel), 200 MG PO HS Scheduled PRN Acetaminophen (Acetaminophen), 1,000 MG PO Q8 PRN for Pain Artificial Saliva (Act Dry Mouth), 1 TERRENCE BU UD PRN for Dry Mouth Chlorhexidine Gluconate (Mouth (Peridex), 2.5 ML PO UD PRN for Oral Health Guaifenesin Ext Rel (Mucinex Ext Rel), 600 MG PO Q12 PRN for Congestion Ketoconazole (Ketoconazole), 1 APPLN TOP UD PRN for Skin Irritation Loperamide Hcl (Imodium), 2 MG PO UD PRN for Loose Stools Magnesium Hydroxide (Milk Of Magnesia), 30 ML PO DAILY PRN for UNDECIDED Menthol-Zinc Oxide (Calmoseptine), 1 APPLN TOP TID PRN for Skin Breakdown Prevention Metolazone (Zaroxolyn), 2.5 MG PO DAILY PRN for Weight Gain >2 Pounds Nystatin (Nystatin Cream), 1 APPLN TOP BID PRN for Excoriation Nystatin (Topical) (Nystop), 1 APPLN TOP BID PRN for Rash Polyethylene Glycol 3350 (Bulk (Polyethylene Glycol 3350), 17 GM PO DAILY PRN for Constipation Tramadol (Ultram), 50 MG PO BID PRN for Severe Pain Triamcinolone Acet (Aristocort 0.1%), 1 APPLN TOP BID PRN for DERMATITIS Zinc Oxide (Topical) (Boudreauxs Butt Paste), 1 APPLN TOP UD PRN for Pressure Ulcer Prevention Zinc Oxide (Topical) (Desitin), 1 APPLN TOP UD PRN for PRN Physical Exam Vital Signs Date Time Temp Pulse Resp B/P (MAP) Pulse Ox O2 Delivery O2 Flow Rate FiO2 12/03/17 15:12 70 96 12/03/17 13:22 70 12/03/17 13:08 70 16 101/59 94 Room Air 12/03/17 12:02 71 114/48 94 12/03/17 11:18 74 12/03/17 11:17 98 Room Air 12/03/17 10:57 36.9 75 16 133/82 97 Room Air Physical Exam General: Frail, elderly white female, in no acute distress. Laying on the bed. Alert and oriented. Skin: Warm and dry with fair turgor. No rashes or lesions. No ecchymosis or erythema. The patient is not diaphoretic. No abrasions. HEENT: Normocephalic atraumatic. Eyes PERRLA, EOMI. No conjunctiva or scleral injection. Ears TMs intact bilaterally with good light reflexes. No erythema or bulging. No hemotympanum. Canals are patent. Nares patent bilaterally without turbinate enlargement. No significant drainage. No epistaxis. Oropharynx without erythema or exudate. Uvula midline, oral mucosa moist. No lesions present. Edentulous. Heart: Heart RRR. No MGR. Peripheral pulses are 2+. Lungs: Lungs have rhonchi and wheezing in all mcwilliams. No crackles. Fair air movement. The patient is able to take a deep breath. Abdomen: Abdomen was inspected, auscultated, and palpated. Obese. Bowel sounds present x 4. Soft, nontender to palpation. No hepato-splenomegaly. No masses noted. Musculoskeletal: Gross motor function of the upper and lower extremities is intact and unremarkable. Neurologic: Gross sensation is intact across the upper and lower extremities by soft touch. Medical Decision & Procedures ER Provider Diagnostic Interpretation: Chest x-ray obtained today shows bilateral basilar infiltrates. Laboratory Results 12/03/17 12:37 Red Blood Count 3.99, Mean Corpuscular Volume 86.2, Mean Corpuscular Hemoglobin 30.3, Mean Corpuscular Hemoglobin Concent 35.2, Mean Platelet Volume 8.7, Neutrophils (%) (Auto) 71.5, Lymphocytes (%) (Auto) 18.3, Monocytes (%) (Auto) 5.8, Eosinophils (%) (Auto) 4.0, Basophils (%) (Auto) 0.1, Neutrophils # (Auto) 6.72, Lymphocytes # (Auto) 1.72, Monocytes # (Auto) 0.55, Eosinophils # (Auto) 0.38, Basophils # (Auto) 0.01 12/03/17 12:37 Test 12/03/17 11:10 12/03/17 12:37 Urine Color RED Urine Appearance CLOUDY (CLEAR) Urine pH 7.5 (4.5-7.5) Urine Specific [place] 1.015 (1.000-1.030) Urine Protein 2+ (NEG) Urine Glucose (UA) NEG (NEG) Urine Ketones NEG (NEG) Urine Occult Blood 2+ (NEG) Urine Nitrite NEG (NEG) Urine Bilirubin NEG (NEG) Urine Urobilinogen NEG (NEG) Urine Leukocyte Esterase TRACE (NEG) Urine WBC (Auto) 5-10 /hpf (0-5) Urine RBC (Auto) >30 /hpf (0-4) Urine Hyaline Casts (Auto) 0 /lpf (0-5) Urine Epithelial Cells (Auto) 0-5 /lpf (0-5) Urine Bacteria (Auto) NEG (NEG) White Blood Count 9.41 K/uL (4.8-10.8) Red Blood Count 3.99 M/uL (4.2-5.4) Hemoglobin 12.1 g/dL (12.0-16.0) Hematocrit 34.4 % (37-47) Mean Corpuscular Volume 86.2 fL (80-100) Mean Corpuscular Hemoglobin 30.3 pg (25-34) Mean Corpuscular Hemoglobin Concent 35.2 g/dl (32-36) Platelet Count 202 K/uL (130-400) Mean Platelet Volume 8.7 fL (7.4-10.4) Neutrophils (%) (Auto) 71.5 % Lymphocytes (%) (Auto) 18.3 % Monocytes (%) (Auto) 5.8 % Eosinophils (%) (Auto) 4.0 % Basophils (%) (Auto) 0.1 % Neutrophils # (Auto) 6.72 K/uL (1.4-6.5) Lymphocytes # (Auto) 1.72 K/uL (1.2-3.4) Monocytes # (Auto) 0.55 K/uL (0.11-0.59) Eosinophils # (Auto) 0.38 K/uL (0-0.5) Basophils # (Auto) 0.01 K/uL (0-0.2) RDW Standard Deviation 42.6 fL (36.4-46.3) RDW Coefficient of Variation 13.4 % (11.5-14.5) Immature Granulocyte % (Auto) 0.3 % Immature Granulocyte # (Auto) 0.03 K/uL (0.00-0.02) Anion Gap 7.0 mmol/L (3-11) Estimated GFR () 70.5 Estimated GFR (Non- 60.9 BUN/Creatinine Ratio 12.2 (10-20) Calcium Level 9.1 mg/dl (8.5-10.1) Total Bilirubin 0.5 mg/dl (0.2-1) Aspartate Amino Transf (AST/SGOT) 17 U/L (15-37) Alanine Aminotransferase (ALT/SGPT) 19 U/L (12-78) Alkaline Phosphatase 80 U/L (45-117) Total Protein 7.9 gm/dl (6.4-8.2) Albumin 3.7 gm/dl (3.4-5.0) Globulin 4.2 gm/dl (2.5-4.0) Albumin/Globulin Ratio 0.9 (0.9-2) CBC, Chem panel, and cath UA were obtained. No elevation in white count. She is hyponatremic. Urine is positive for infection. Medications Administered Medications (Trade) Dose Ordered Sig/Samir Route Start Time Stop Time Status Last Admin Dose Admin Albuterol/ Ipratropium (Duoneb) 3 ml NOW STAT INH 12/03/17 11:33 12/03/17 11:36 DC 12/03/17 11:40 3 ML Acetaminophen (Tylenol Tab) 650 mg NOW STAT PO 12/03/17 12:48 12/03/17 12:51 DC 12/03/17 13:06 650 MG Tramadol HCl (Ultram Tab) 50 mg NOW STAT PO 12/03/17 12:48 12/03/17 12:51 DC 12/03/17 13:05 50 MG Sodium Chloride 500 ml @ 999 mls/hr Q31M STAT IV 12/03/17 13:24 12/03/17 13:54 DC 12/03/17 13:54 999 MLS/HR Levofloxacin (Levaquin Tab) 750 mg ONE ONCE PO 12/03/17 14:00 12/03/17 14:01 DC 12/03/17 14:06 750 MG DuoNeb, Tylenol 650 mg, Ultram 50 mg, Levaquin 750 mg p.o., normal sterile saline 500 mL bolus ED Course Patient and her daughter were educated regarding today's findings. Conservative care measures were discussed. She was evaluated in C5. IV was established. Labs were obtained. Chest x-ray was obtained. Cath UA specimen was also obtained. She remained stable while in the ED. Patient was given a DuoNeb treatment which improved her breathing. She appears to have small infiltrates. She is afebrile with no elevation in white count. I do think that she can be treated as an outpatient. Patient was given a tablet of Levaquin 750 mg orally. Additional prescription for 9 more days was provided. This will treat both her lungs and her UTI. She already has inhalers. She was encouraged to use these. Spacer chamber was provided. She is hyponatremic, but this seems to be her baseline over the last several years. She is slightly worse than previous. She was given half liter of normal sterile saline. She was encouraged to salt her food for the next few days. Use Delsym syrup 2 teaspoons every 12 hours as needed for cough. Patient did complain of a mild headache while in the ED. She usually treats them with Tylenol and Ultram. She was given Ultram 50 mg and Tylenol 650 mg with resolution. Return to the ED for any acute worsening. Follow-up with her PCP this week. Her daughter is aware. Patient was seen in conjunction with Dr. Wang, who also evaluated the patient and concurred with today's diagnosis and treatment plan. Medical Decision Possibility of pneumonia, PE, bronchitis, lung mass, hematuria, and kidney stones were all considered. Medication Reconcilliation Current Medication List: was personally reviewed by me Blood Pressure Screening Blood pressure disposition: Elevated BP felt to be situational Impression Primary Impression: UTI (urinary tract infection) Additional Impression: Basal pneumonia of both lungs Departure Information Dispostion Home / Self-Care Condition GOOD Prescriptions Levofloxacin (Levaquin) 750 Mg Tab 750 MG PO DAILY, #9 TAB Prov: Danny Diaz,P.A. 12/03/17 Forms WORK / SCHOOL INSTRUCTIONS, HOME CARE DOCUMENTATION FORM, TYLENOL USE, IMPORTANT VISIT INFORMATION Patient Instructions My [facility] [employer] Additional Instructions Hold your trazodone while taking the Levaquin Take Levaquin 1 tablet daily 10 days Continue hydration Salt your food for a few days Use your inhalers as previously prescribed Follow-up with your PCP later this week for reexamination Return to the ED if urine symptoms become worse, fevers are uncontrolled, or breathing becomes more difficult Delsym syrup 2 teaspoons every 12 hours as needed for cough Problem Qualifiers Primary Impression: UTI (urinary tract infection) Urinary tract infection type: acute cystitis Hematuria presence: with hematuria Qualified Codes: N30.01 - Acute cystitis with hematuria
== END 2017-12-03 14:50 | disposition home or self-care (01) ==
LOC: C.EDB 10:54 → C.EDC 14:50
DX: J18.9 Pneumonia, unspecified organism (principal); N39.0 Urinary tract infection, site not specified; E87.1 Hypo-osmolality and hyponatremia; E11.40 Type 2 diabetes mellitus with diabetic neuropathy, unspecified; Z86.711 Personal history of pulmonary embolism; Z86.73 Personal history of transient ischemic attack (TIA), and cerebral infarction without residual deficits; Z87.440 Personal history of urinary (tract) infections; Z87.891 Personal history of nicotine dependence; Z79.82 Long term (current) use of aspirin; Z79.899 Other long term (current) drug therapy; E66.9 Obesity, unspecified

== ENCOUNTER → 2017-12-16 | Outpatient (CLI) | payer BC ==
[~2017-12-16] MED LIST changes: -ASTN NAE; -CPR/500 PO; +DULO-24 PO; -L-Thyroxine PO; +LEVO125T5 PO; +LEVO1TAB35 PO; +MOML PO; +PRMVC PV; +PSYL48.59 PO; -SERT100T PO; +SERT50TA PO; +TRMCR130WC TOP; -ZINC40OI TOP; +ZINC40OI13 TOP
== END | disposition home or self-care (01) ==
LOC: C.LABSPEC 12:22
PROVIDERS: ATTEND Internal Medicine
DX: R30.0 Dysuria (principal)

== ENCOUNTER → 2017-12-16 | Outpatient (CLI) | payer BC ==
[~2017-12-16] MED LIST changes: +OPTIRAY 320 IV PRN
--- NOTE | 2017-12-16 14:51 | DIAGNOSTIC IMAGING REPORT ---
ABD/PELVIS IV AND ORAL CONT CLINICAL HISTORY: 77 years-old Female presenting with LLQ PAIN, right lower quadrant abdominal pain. TECHNIQUE: Multidetector CT of the abdomen and pelvis was performed after the administration of oral and intravenous contrast. IV contrast: 92 mL of Optiray 320. A dose lowering technique was used consistent with the principles of ALARA (as low as reasonably achievable). COMPARISON: 04/12/2017. CT DOSE (mGy.cm): The estimated cumulative dose is 1206.15 mGycm. FINDINGS: Warranty Administrator topogram: Unremarkable. Lung bases: Minimal basilar opacities, likely atelectasis. Normal heart size. No pericardial or pleural effusion. Liver: Normal morphology. No liver lesion. Patent hepatic vasculature. Biliary: No intrahepatic or extrahepatic biliary ductal dilatation. Normal gallbladder. Pancreas: Moderate parenchymal atrophy. Spleen: Normal. Adrenal glands: Normal. Kidneys and ureters: Chronic atrophy of the left kidney. No hydronephrosis. No nephrolithiasis. Ureters normal. Bladder: Pessary in place. Bladder mildly distended. Pelvic organs: Uterus surgically absent. No adnexal masses. Bowel: Moderate stool burden throughout the colon. The appendix is normal. Fecal material in the distal small bowel suggest delayed transit. No bowel obstruction. Small duodenal diverticulum noted at the level of the pancreatic head. Peritoneal cavity: No free fluid or intraperitoneal gas. Trace infiltration or fluid in the extraperitoneal pelvis. Lymph nodes: No enlarged lymph nodes in the abdomen or pelvis. Vasculature: Atherosclerosis of the normal caliber abdominal aorta. IVC patent. Abdominal wall: Laxity of the abdominal wall with pannus containing unobstructed bowel. Musculoskeletal: Degenerative changes of the spine. IMPRESSION: 1. No acute intra-abdominal pathology. 2. Moderate stool burden suggest constipation. 3. Pessary in place with mild bladder distention. 4. Abdominal wall laxity with pannus containing unobstructed bowel. 5. Nonspecific trace fluid in the extraperitoneal pelvis. This does not have a clear etiology. This can be seen in the post radiation setting as well as mild inflammatory change in the pelvis. Electronically signed by: Michael Mast M.D. 12/16/2017 2:50 PM Dictated Date/Time: 12/16/2017 2:42 PM
== END | disposition home or self-care (01) ==
LOC: C.CTS 13:17
PROVIDERS: ATTEND Physician Assistant
DX: R10.32 Left lower quadrant pain (principal)

== ENCOUNTER → 2017-12-29 | Outpatient (CLI) | payer BC ==
[~2017-12-29] MED LIST changes: -OPTIRAY 320 IV PRN
== END | disposition home or self-care (01) ==
LOC: C.PATHSPEC 17:17
PROVIDERS: ATTEND Nurse Practitioner Adult Health
DX: N39.0 Urinary tract infection, site not specified (principal); R31.29 Other microscopic hematuria

== ENCOUNTER → 2018-01-04 | Outpatient (CLI) | payer BC | END | disposition home or self-care (01) | LOC: C.LABSPEC 08:54 | PROVIDERS: ATTEND Urology | DX: E87.6 Hypokalemia (principal) ==

== ENCOUNTER → 2018-01-05 | Outpatient (CLI) | payer BC ==
[2018-01-05 08:55] LABS: BLOOD UREA NITROGEN 12 mg/dl (7-18); CALCIUM 8.4 mg/dl (8.5-10.1); CARBON DIOXIDE 24 mmol/L (21-32); CREATININE 1.09 mg/dl (0.60-1.20); GLUCOSE 90 mg/dl (70-99); POTASSIUM 4.4 mmol/L (3.5-5.1); SODIUM 129 mmol/L (136-145)
== END | disposition home or self-care (01) ==
LOC: C.LABSPEC 08:26
PROVIDERS: ATTEND Urology
DX: E87.6 Hypokalemia (principal)

== ENCOUNTER → 2018-04-05 | Outpatient (CLI) | payer BC ==
[~2018-04-05] MED LIST changes: +SPIR25TA5 PO; -SPIR25TA89 PO; -TRAZ-122 PO; +TRAZ-162 PO
[2018-04-05 08:49] LABS: BASO % 0.3 %; BASO ABS # 0.02 K/uL (0-0.2); EOS % 3.5 %; EOS ABS # 0.23 K/uL (0-0.5); HEMATOCRIT 32.1 % (37-47); HEMOGLOBIN 10.9 g/dL (12.0-16.0); IG# 0.02 K/uL (0.00-0.02); LYMPH % 28.2 %; LYMPH ABS # 1.84 K/uL (1.2-3.4); MEAN CELL VOLUME 88.4 fL (80-100); MEAN PLATELET VOLUME 9.4 fL (7.4-10.4); MONO % 8.4 %; MONO ABS # 0.55 K/uL (0.11-0.59); NEUT % 59.3 %; NEUT ABS # 3.87 K/uL (1.4-6.5); PLATELET COUNT 199 K/uL (130-400); RED CELL DISTRIBUTION WIDTH CV 13.8 % (11.5-14.5); RED CELL DISTRIBUTION WIDTH SD 44.9 fL (36.4-46.3); WHITE BLOOD COUNT 6.53 K/uL (4.8-10.8)
[2018-04-05 09:00] LABS: ALBUMIN 3.2 gm/dl (3.4-5.0); ALKALINE PHOSPHATASE 71 U/L (45-117); ALT/SGPT 19 U/L (12-78); AST/SGOT 18 U/L (15-37); BLOOD UREA NITROGEN 12 mg/dl (7-18); CALCIUM 8.4 mg/dl (8.5-10.1); CARBON DIOXIDE 27 mmol/L (21-32); CHOLESTEROL 141 mg/dl (0-200); CREATININE 0.95 mg/dl (0.60-1.20); GLUCOSE 103 mg/dl (70-99); LDL CHOLESTEROL CALCULATED 80 mg/dl; POTASSIUM 3.9 mmol/L (3.5-5.1); SODIUM 132 mmol/L (136-145); TOTAL PROTEIN 6.4 gm/dl (6.4-8.2)
[2018-04-05 09:26] LABS: HEMOGLOBIN A1C 6.1 % (4.5-5.6)
== END | disposition home or self-care (01) ==
LOC: C.LABSPEC 08:37
PROVIDERS: ATTEND Internal Medicine
DX: E78.5 Hyperlipidemia, unspecified (principal); D64.9 Anemia, unspecified; E11.59 Type 2 diabetes mellitus with other circulatory complications; N39.46 Mixed incontinence; R33.9 Retention of urine, unspecified

== ENCOUNTER 2018-09-14 07:07 | Inpatient (IN) ==
[2018-09-14 07:48] LABS: Basophils # (auto) 0.02 K/uL (0-0.2); Basophils % (auto) 0.2 %; Eosinophils # (auto) 0.09 K/uL (0-0.5); Eosinophils % (auto) 0.7 %; Hematocrit (blood only) 33.1 % (37-47); Immature Granulocytes # (auto) 0.04 K/uL (0.00-0.02); Immature Granulocytes % (auto) 0.3 %; Lymphocytes # (auto) 0.95 K/uL (1.2-3.4); Lymphocytes % (auto) 7.6 %; Mean Corpuscular Hgb Conc 33.2 g/dL (32-36); Mean Corpuscular Volume 89.7 fL (80-100); Mean Platelet Volume 9.4 fL (7.4-10.4); Monocytes # (auto) 1.17 K/uL (0.11-0.59); Monocytes % (auto) 9.4 %; Neutrophils # (auto) 10.23 K/uL (1.4-6.5); Neutrophils % (auto) 81.8 %; Platelet Count 191 K/uL (130-400); Red Blood Count 3.69 M/uL (4.2-5.4)
--- NOTE | 2018-09-14 07:57 | Emergency Department Note ---
Entered by Isabel Colvin acting as a scribe for History of Present Illness General Chief complaint: Confusion Time Seen by Provider: 09/14/18 07:38 Source: patient and family Mode of arrival: EMS Limitations: altered mental status History of Present Illness Onset (ago): day(s) 1 Location: head Radiation: non-radiation Pain Consistency: + constant Relieved By: + none Exacerbated By: + none Associated symptoms: + cough, + fever/chills, + headaches, + malaise, + shortness of breath, + weakness and + other (-abdominal pain); no chest pain Treatments prior to arrival: none The patient is a 78 year old female who presents to the Emergency Room with complaints of confusion. She was brought to the ED via ALS from [facility] and is accompanied by her daughter, Rama. Rama states she got a call from [facility] early this morning that the patient was very confused around 0100. She was incontinent of urine, which is unusual for her, and seemed weak and lethargic, so staff called EMS. The patient has a history of previous TIA's, CHF and uses C-Pap at night. She complained to her daughter of feeling like her breathing was "wheezy" and has a history of CHF. The patient is on Plavix for a history of blood clots. She states "I just don't feel very good" and reports her breathing feels "tight". She has experienced a cough and low grade fevers. She also complains of a "terrible" headache. She denies any chest pain or abdominal pain. She denies any recent falls or trauma. Home Medications Home Medications Medication Instructions Recorded Confirmed Type Reguloid 1 tbsp PO BIDM 05/16/18 09/14/18 History Systane Ultra (PF) 1 ophthalmic insert EXT TIDM 05/16/18 09/14/18 History acetaminophen [Tylenol Extra 1,000 mg PO Q8 PRN 05/16/18 09/14/18 History Strength] amitriptyline 100 mg PO HS 05/16/18 09/14/18 History atenolol 50 mg PO QAM 05/16/18 09/14/18 History clopidogrel [Plavix] 75 mg PO QAM 05/16/18 09/14/18 History cyclosporine [Restasis] 1 drp OPHTHALMIC (EYE) BID 05/16/18 09/14/18 History dextromethorphan polistirex 10 ml PO Q12H PRN 05/16/18 09/14/18 History [Delsym 12 hour] donepezil 5 mg PO HS 05/16/18 09/14/18 History duloxetine 60 mg PO UD 05/16/18 09/14/18 History guaifenesin [Mucinex] 600 mg PO Q12H PRN 05/16/18 09/14/18 History levothyroxine 250 mcg PO QAM 05/16/18 09/14/18 History loperamide 1 mg PO DIRECTED PRN 05/16/18 09/14/18 History lorazepam [Ativan] 0.5 mg PO HS 05/16/18 09/14/18 History magnesium hydroxide [Milk of 2 - 4 tbsp PO DAILY PRN 05/16/18 09/14/18 History Magnesia] methenamine hippurate 1 g PO HS 05/16/18 09/14/18 History metolazone 2.5 mg PO DIRECTED PRN 05/16/18 09/14/18 History mirabegron [Myrbetriq] 50 mg PO QAM 05/16/18 09/14/18 History mometasone [Nasonex] 1 spray INTRANASAL BID 05/16/18 05/16/18 History montelukast [Singulair] 10 mg PO HS 05/16/18 09/14/18 History nystatin 1 applic TOPICAL BID PRN 05/16/18 09/14/18 History pantoprazole 40 mg PO BIDM 05/16/18 09/14/18 History polyethylene glycol 3350 [Miralax] 17 g PO DAILY PRN 05/16/18 09/14/18 History potassium chloride 60 meq PO BIDM 05/16/18 09/14/18 History ranitidine HCl 150 mg PO BIDM 05/16/18 09/14/18 History sertraline 25 mg PO QAM 05/16/18 09/14/18 History spironolactone 25 mg PO QAM 05/16/18 09/14/18 History tamsulosin [Flomax] 0.4 mg PO QAM 05/16/18 09/14/18 History tramadol 50 mg PO Q6H PRN 05/16/18 09/14/18 History trazodone 200 mg PO HS 05/16/18 09/14/18 History vitamin B complex 1 tab PO QAM 05/16/18 09/14/18 History Act Dry Mouth Lozenges 1 mauricio PO HS PRN 09/14/18 09/14/18 History albuterol sulfate [ProAir HFA] 2 puff INHALATION QID PRN 09/14/18 09/14/18 History aspirin 81 mg PO QAM 09/14/18 09/14/18 History calcium carbonate-vitamin D3 1 tab PO BIDM 09/14/18 09/14/18 History [Caltrate 600 + D] cefdinir 300 mg PO BID 7 Days #14 cap 09/14/18 Rx conjugated estrogens [Premarin] 1 applic TOPICAL 2XWK 09/14/18 09/14/18 History ferrous sulfate [iron] 325 mg PO QAM 09/14/18 09/14/18 History gabapentin 300 mg PO TIDM 09/14/18 09/14/18 History glucosamine sulfate [Glucosamine] 1,500 mg PO QAM 09/14/18 09/14/18 History ipratropium bromide [Atrovent HFA] 2 puff INHALATION QID PRN 09/14/18 09/14/18 History ketoconazole [Nizoral] 1 applic TOPICAL WK 09/14/18 09/14/18 History metolazone 2.5 mg PO DAILY PRN 09/14/18 09/14/18 History multivitamin 1 tab PO QAM 09/14/18 09/14/18 History peg 400-propylene glycol (PF) 1 drp OPHTHALMIC (EYE) HS 09/14/18 09/14/18 History [Systane (PF)] Allergies Allergy/AdvReac Type Severity Reaction Status Date / Time KODAK Inhibitors Allergy Unknown ? Verified 09/14/18 09:37 Past Med/Surg History Medical History Morbid obesity with BMI of 50.0-59.9, adult YARI (obstructive sleep apnea) Hyponatremia Diastolic CHF, chronic CAD (coronary artery disease) Chronic interstitial cystitis Sepsis (Acute) Confusion (Acute) UTI (urinary tract infection) (Acute) Diabetes (Chronic) TIA (transient ischemic attack) (Resolved) Pulmonary embolism (Resolved) UTI (urinary tract infection) (Resolved) Cardiac valve prolapse (Chronic) Balance disorder Basal pneumonia of both lungs (Acute) Diabetic peripheral neuropathy associated with type 2 diabetes mellitus Foot deformity Foot pain Loss of sensation Family History Other Family history non-contributory Social History Current Living Situation: Personal Care Facility Current Living Situation Comment: [facility] Other Information That Helps Us Care for You: No Feels Safe at Home: Yes Safety Concerns: Feels Safe At This Time Smoking Status: Never smoker Hx Alcohol Use: No Hx Substance Use: No Beliefs That Will Affect Care: None Preferred Language: [place] Communication Ability: Effective Review of Systems See HPI for pertinent positives & negatives. and A total of 10 systems reviewed and were otherwise negative Physical Exam Vital Signs Vital Signs - 24 hr 09/14/18 07:27 09/14/18 07:30 09/14/18 07:46 Temperature 36.7 C Temperature Source Oral Sepsis Recent Fever Within 48 Hours No Sepsis New/Unexplained Change in Mental Status No Sepsis Action Taken by Nursing No Action Required Pulse Rate 91 H 86 Pulse Rate [Left Brachial] 91 H Respiratory Rate 18 26 H Respiratory Effort / Characteristics Non-Labored Spontaneous Respiratory Depth Normal Respiratory Pattern Regular Blood Pressure 134/72 Blood Pressure [Left Arm] 134/72 Blood Pressure Mean 92 Blood Pressure Mean [Left Arm] 92 Blood Pressure Position Lying Blood Pressure Position [Left Arm] Lying Pulse Oximetry 95 97 95 Oxygen Delivery Method Room Air Room Air Oxygen Flow Rate 09/14/18 08:20 09/14/18 08:42 09/14/18 08:46 Temperature Temperature Source Sepsis Recent Fever Within 48 Hours Sepsis New/Unexplained Change in Mental Status Sepsis Action Taken by Nursing Pulse Rate 90 89 82 Pulse Rate [Left Brachial] Respiratory Rate 20 23 19 Respiratory Effort / Characteristics Respiratory Depth Respiratory Pattern Blood Pressure 116/72 100/58 L 121/54 L Blood Pressure [Left Arm] Blood Pressure Mean 86 72 76 Blood Pressure Mean [Left Arm] Blood Pressure Position Blood Pressure Position [Left Arm] Pulse Oximetry 94 95 94 Oxygen Delivery Method Oxygen Flow Rate 09/14/18 09:01 09/14/18 09:16 09/14/18 09:46 Temperature Temperature Source Sepsis Recent Fever Within 48 Hours Sepsis New/Unexplained Change in Mental Status Sepsis Action Taken by Nursing Pulse Rate 90 81 88 Pulse Rate [Left Brachial] Respiratory Rate 22 23 23 Respiratory Effort / Characteristics Respiratory Depth Respiratory Pattern Blood Pressure 115/63 131/69 98/73 L Blood Pressure [Left Arm] Blood Pressure Mean 80 89 81 Blood Pressure Mean [Left Arm] Blood Pressure Position Blood Pressure Position [Left Arm] Pulse Oximetry 98 95 95 Oxygen Delivery Method Oxygen Flow Rate 09/14/18 10:01 09/14/18 10:20 09/14/18 10:30 Temperature Temperature Source Sepsis Recent Fever Within 48 Hours Sepsis New/Unexplained Change in Mental Status Sepsis Action Taken by Nursing Pulse Rate 86 108 H 121 H Pulse Rate [Left Brachial] Respiratory Rate 32 H 36 H 30 H Respiratory Effort / Characteristics Respiratory Depth Respiratory Pattern Blood Pressure 111/90 Blood Pressure [Left Arm] Blood Pressure Mean 97 Blood Pressure Mean [Left Arm] Blood Pressure Position Blood Pressure Position [Left Arm] Pulse Oximetry 94 77 L 91 Oxygen Delivery Method Oxygen Flow Rate 09/14/18 10:40 09/14/18 10:49 09/14/18 10:54 Temperature Temperature Source Sepsis Recent Fever Within 48 Hours Sepsis New/Unexplained Change in Mental Status Sepsis Action Taken by Nursing Pulse Rate 125 H 121 H Pulse Rate [Left Brachial] 122 H Respiratory Rate 26 H 24 34 H Respiratory Effort / Characteristics Labored Respiratory Depth Respiratory Pattern Blood Pressure 175/166 H Blood Pressure [Left Arm] 182/156 H Blood Pressure Mean 169 Blood Pressure Mean [Left Arm] 164 Blood Pressure Position Blood Pressure Position [Left Arm] Pulse Oximetry 91 95 100 Oxygen Delivery Method Oxymask Oxygen Flow Rate 4 09/14/18 10:58 09/14/18 11:03 09/14/18 11:23 Temperature Temperature Source Sepsis Recent Fever Within 48 Hours Sepsis New/Unexplained Change in Mental Status Sepsis Action Taken by Nursing Pulse Rate 121 H Pulse Rate [Left Brachial] 115 H Respiratory Rate 34 H 22 Respiratory Effort / Characteristics Respiratory Depth Respiratory Pattern Blood Pressure 196/171 H Blood Pressure [Left Arm] 202/118 H Blood Pressure Mean 179 Blood Pressure Mean [Left Arm] 146 Blood Pressure Position Blood Pressure Position [Left Arm] Pulse Oximetry 96 99 98 Oxygen Delivery Method Oxymask Oxymask Oxygen Flow Rate 4 09/14/18 11:27 09/14/18 11:32 09/14/18 11:47 Temperature Temperature Source Sepsis Recent Fever Within 48 Hours Sepsis New/Unexplained Change in Mental Status Sepsis Action Taken by Nursing Pulse Rate 121 H Pulse Rate [Left Brachial] Respiratory Rate 29 H Respiratory Effort / Characteristics Labored Retracting Short of Breath Respiratory Depth Shallow Respiratory Pattern Tachypnea Blood Pressure 117/83 Blood Pressure [Left Arm] Blood Pressure Mean 94 Blood Pressure Mean [Left Arm] Blood Pressure Position Blood Pressure Position [Left Arm] Pulse Oximetry 99 Oxygen Delivery Method Oxymask Oxymask Oxygen Flow Rate 4 09/14/18 12:30 09/14/18 16:00 09/14/18 16:12 Temperature 39.0 C H 36.9 C Temperature Source Sepsis Recent Fever Within 48 Hours Sepsis New/Unexplained Change in Mental Status Sepsis Action Taken by Nursing Pulse Rate 116 H 100 H 106 H Pulse Rate [Left Brachial] Respiratory Rate 22 20 Respiratory Effort / Characteristics Respiratory Depth Respiratory Pattern Blood Pressure 91/50 L 87/56 L Blood Pressure [Left Arm] Blood Pressure Mean Blood Pressure Mean [Left Arm] Blood Pressure Position Blood Pressure Position [Left Arm] Pulse Oximetry 95 94 Oxygen Delivery Method Oxymask Oxygen Flow Rate 4 General: Well developed, well nourished, mildly ill-appearing older female, in no acute distress, breathing comfortably on room air. Normal speech HEENT: Normal cephalic atraumatic. Pupils are equal round and reactive to light. Extraocular movements are intact. Oropharynx is pink with moist mucous membranes. No swelling of the mouth lips or tongue. Neck: Supple with a midline trachea. No meningeal signs or stiffness, no JVD or bruits. No Stridor. Chest: Clear to auscultation bilaterally. No wheezes or rhonchi. No increased work of breathing. Heart: Regular rate and rhythm without murmurs or gallops. Abdomen: Soft nontender, nondistended without rebound guarding or rigidity. Extremities: Chronic edema of lower extremity. No cyanosis or clubbing. No calf tenderness or assymetry Spine/Back. Non tender to palpation. No CVA tenderness Skin: Good turgor without rashes. Neurologic exam: Cranial nerves two through 12 are intact. Motor and sensation are intact and symmetrical throughout. Course 0732: Past medical records reviewed. The patient was evaluated in room B8, and a complete history and physical examination were performed. 0845: I reevaluated the patient. She states she feels weak and tired. I have ordered IV fluids. I discussed my recommendation she remain in the hospital for further evaluation and management and she and her daughter verbalized complete understanding and agreement. 0900: I discussed the patients case with Sharon Sweeney PA-C, [facility] Hospitalist. The patient will be further evaluated. Consultations Consultation #1: I discussed the patients case with Sharon Sweeney PA-C, [facility] Hospitalist. The patient will be further evaluated. Time: 09:00 Administered Medications Acetaminophen (Tylenol) 1,000 mg PO Q8 PRN PRN Reason: Pain Stop: 10/14/18 12:21 Last Admin: 09/14/18 12:46 Dose: 1,000 mg Benzonatate (Tessalon Perle) 100 mg PO TID [facility] Stop: 10/14/18 13:59 Last Admin: 09/14/18 14:54 Dose: 100 mg Duloxetine HCl (Cymbalta) 60 mg PO BID@0730,1130 [facility] Stop: 10/14/18 13:14 Last Admin: 09/14/18 14:56 Dose: 60 mg Gabapentin (Neurontin) 300 mg PO TIDM [facility] Stop: 10/14/18 13:14 Last Admin: 09/14/18 17:09 Dose: 300 mg Admin: 09/14/18 14:53 Dose: 300 mg Piperacillin Sod/Tazobactam Sod (Zosyn) 4.5 gm in 120 mls @ 28 mls/hr IV Q8H [facility]; Protocol Stop: 09/16/18 13:59 Last Admin: 09/14/18 14:55 Dose: 28.8 mls/hr Insulin Aspart (Novolog Flexpen) 0 units SC ACHS [facility] Stop: 10/14/18 13:29 Last Admin: 09/14/18 14:56 Dose: 2 units Miscellaneous (Order Awaiting Action) 1 ea N/A QS [facility] Stop: 10/14/18 15:59 Last Admin: 09/14/18 15:06 Dose: Not Given Miscellaneous (Order Awaiting Action) 1 ea N/A QS [facility] Stop: 10/14/18 15:59 Last Admin: 09/14/18 15:06 Dose: Not Given Multivitamins/Minerals (Caltrate Plus) 1 tab PO BIDM [facility] Stop: 10/14/18 16:59 Last Admin: 09/14/18 17:09 Dose: 1 tab Pantoprazole Sodium (Protonix) 40 mg PO BID@0730,1630 [facility] Stop: 10/14/18 16:29 Last Admin: 09/14/18 17:09 Dose: 40 mg Potassium Chloride (Klor-Con M20) 60 meq PO BIDM [facility] Stop: 10/14/18 16:59 Last Admin: 09/14/18 17:09 Dose: 60 meq Psyllium Hydrophilic Mucilloid (Metamucil) 1 pkt PO BIDM [facility] Stop: 10/14/18 16:59 Last Admin: 09/14/18 17:10 Dose: 1 pkt Ranitidine HCl (Zantac) 150 mg PO BIDM [facility] Stop: 10/14/18 16:59 Last Admin: 09/14/18 17:09 Dose: 150 mg Discontinued Medications Piperacillin Sod/Tazobactam Sod (Zosyn) 4.5 gm in 120 mls @ 240 mls/hr IV NOW ONE Stop: 09/14/18 09:12 Last Infusion: 09/14/18 09:39 Dose: 0 mls/hr Admin: 09/14/18 08:53 Dose: 240 mls/hr Sodium Chloride (Nss 1000ml) 250 mls @ 999 mls/hr IV .Q16M ONE Stop: 09/14/18 08:58 Last Infusion: 09/14/18 09:11 Dose: 0 mls/hr Admin: 09/14/18 08:54 Dose: 999 mls/hr Lorazepam (Ativan) 0.5 mg in 1 mls @ 1 mls/min IV NOW STA Stop: 09/14/18 10:44 Last Admin: 09/14/18 10:57 Dose: Not Given Vancomycin HCl 2,750 mg/ (Sodium Chloride) 555 mls @ 200 mls/hr IV ONE ONE Stop: 09/14/18 15:46 Last Admin: 09/14/18 14:48 Dose: 200 mls/hr Dexamethasone Sodium Phosphate (2 mg/ Syringe) 0.5 mls @ 1 mls/min IV ONE ONE Stop: 09/14/18 13:16 Last Admin: 09/14/18 14:51 Dose: 1 mls/min Lorazepam (Ativan) Confirm Administered Dose 2 mg .ROUTE .STK-MED ONE Stop: 09/14/18 10:48 Last Admin: 09/14/18 10:48 Dose: 0.5 mg Miscellaneous (Order Awaiting Action) 1 ea N/A QS [facility] Stop: 10/14/18 15:59 Last Admin: 09/14/18 15:06 Dose: Not Given Medical Decision Making Differential Diagnosis The differential diagnoses considered include sepsis, UTI, TIA, intracranial process, electrolyte or metabolic abnormality. Medical Records Attestation: I reviewed the patient's medical records. Home Medications Current Medication List: was personally reviewed by me Laboratory Data Attestation: I reviewed the patient's lab results. Result diagrams: 09/14/18 06:55 09/14/18 06:55 Lab Results 09/14/18 09/14/18 09/14/18 Range/Units 06:55 06:55 06:55 WBC 12.50 H (4.8-10.8) K/uL RBC 3.69 L (4.2-5.4) M/uL Hgb 11.0 L (12.0-16.0) g/dL Hct 33.1 L (37-47) % MCV 89.7 (80-100) fL MCH 29.8 (25-34) pg MCHC 33.2 (32-36) g/dL RDW Std Deviation 46.0 (36.4-46.3) fL RDW Coeff of [place] 14.0 (11.5-14.5) % Plt Count 191 (130-400) K/uL MPV 9.4 (7.4-10.4) fL Immature Gran % (Auto) 0.3 % Neut % (Auto) 81.8 % Lymph % (Auto) 7.6 % [place] % (Auto) 9.4 % Eos % (Auto) 0.7 % Baso % (Auto) 0.2 % Immature Gran # (Auto) 0.04 H (0.00-0.02) K/uL Neut # (Auto) 10.23 H (1.4-6.5) K/uL Lymph # (Auto) 0.95 L (1.2-3.4) K/uL [place] # (Auto) 1.17 H (0.11-0.59) K/uL Eos # (Auto) 0.09 (0-0.5) K/uL Baso # (Auto) 0.02 (0-0.2) K/uL PT 10.7 (9.0-12.0) Seconds INR 1.1 (0.9-1.1) APTT 31.8 H (21.0-31.0) Seconds PTT Ratio 1.2 VBG pH (7.36-7.41) VBG pCO2 (38-50) mmHg VBG pO2 mmHg VBG HCO3 mmol/L VBG O2 Saturation % VBG Base Excess mEq/L Barometric Pressure mm/Hg Sodium 127 L (136-145) mmol/L Potassium 4.6 (3.5-5.1) mmol/L Chloride 93 L (98-107) mmol/L Carbon Dioxide 27 (21-32) mmol/L Anion Gap 7.0 (3-11) BUN 14 (7-18) mg/dl Creatinine 1.13 (0.6-1.2) mg/dl Est Cr Clr Drug Dosing 53.8 ml/min Est GFR ( Amer) 53.9 Est GFR (Non-Af Amer) 46.5 BUN/Creatinine Ratio 12.8 (10-20) Glucose 152 H (70-99) mg/dl POC Glucose (70-99) Lactate (0.4-2.0) mmol/L Calcium 8.6 (8.5-10.1) mg/dl Total Bilirubin 0.8 (0.2-1) mg/dl AST 19 (15-37) U/L ALT 30 (12-78) U/L Alkaline Phosphatase 86 (45-117) U/L Troponin I < 0.015 (0-0.045) ng/ml NT-Pro-B Natriuret Pep 232 (0-1800) pg/ml Total Protein 7.5 (6.4-8.2) gm/dl Albumin 3.5 (3.4-5.0) gm/dl Globulin 4.0 (2.5-4.0) gm/dl Albumin/Globulin Ratio 0.9 (0.9-2) TSH (0.300-4.500) uIu/ml Urine Color Urine Appearance (Clear) Urine pH (4.5-7.5) Ur Specific [place] (1.000-1.030) Urine Protein (Negative) Urine Glucose (UA) (Negative) Urine Ketones (Negative) Urine Blood (Negative) Urine Nitrite (Negative) Urine Bilirubin (Negative) Urine Urobilinogen (Negative) Ur Leukocyte Esterase (Negative) Urine WBC (Auto) (0-5) /hpf Urine RBC (Auto) (0-4) /hpf U Hyaline Cast (Auto) (0-5) /lpf U Epithel Cells (Auto) (0-5) /lpf Urine Bacteria (Auto) (Negative) Influenza Type A Ag (Neg) Influenza Type B Ag (Neg) 09/14/18 09/14/18 09/14/18 Range/Units 06:55 08:00 08:00 WBC (4.8-10.8) K/uL RBC (4.2-5.4) M/uL Hgb (12.0-16.0) g/dL Hct (37-47) % MCV (80-100) fL MCH (25-34) pg MCHC (32-36) g/dL RDW Std Deviation (36.4-46.3) fL RDW Coeff of [place] (11.5-14.5) % Plt Count (130-400) K/uL MPV (7.4-10.4) fL Immature Gran % (Auto) % Neut % (Auto) % Lymph % (Auto) % [place] % (Auto) % Eos % (Auto) % Baso % (Auto) % Immature Gran # (Auto) (0.00-0.02) K/uL Neut # (Auto) (1.4-6.5) K/uL Lymph # (Auto) (1.2-3.4) K/uL [place] # (Auto) (0.11-0.59) K/uL Eos # (Auto) (0-0.5) K/uL Baso # (Auto) (0-0.2) K/uL PT (9.0-12.0) Seconds INR (0.9-1.1) APTT (21.0-31.0) Seconds PTT Ratio VBG pH (7.36-7.41) VBG pCO2 (38-50) mmHg VBG pO2 mmHg VBG HCO3 mmol/L VBG O2 Saturation % VBG Base Excess mEq/L Barometric Pressure mm/Hg Sodium (136-145) mmol/L Potassium (3.5-5.1) mmol/L Chloride (98-107) mmol/L Carbon Dioxide (21-32) mmol/L Anion Gap (3-11) BUN (7-18) mg/dl Creatinine (0.6-1.2) mg/dl Est Cr Clr Drug Dosing ml/min Est GFR ( Amer) Est GFR (Non-Af Amer) BUN/Creatinine Ratio (10-20) Glucose (70-99) mg/dl POC Glucose (70-99) Lactate (0.4-2.0) mmol/L Calcium (8.5-10.1) mg/dl Total Bilirubin (0.2-1) mg/dl AST (15-37) U/L ALT (12-78) U/L Alkaline Phosphatase (45-117) U/L Troponin I (0-0.045) ng/ml NT-Pro-B Natriuret Pep (0-1800) pg/ml Total Protein (6.4-8.2) gm/dl Albumin (3.4-5.0) gm/dl Globulin (2.5-4.0) gm/dl Albumin/Globulin Ratio (0.9-2) TSH 0.574 (0.300-4.500) uIu/ml Urine Color Yellow Urine Appearance Clear (Clear) Urine pH 7.0 (4.5-7.5) Ur Specific [place] 1.012 (1.000-1.030) Urine Protein Negative (Negative) Urine Glucose (UA) Negative (Negative) Urine Ketones Negative (Negative) Urine Blood Negative (Negative) Urine Nitrite Negative (Negative) Urine Bilirubin Negative (Negative) Urine Urobilinogen Negative (Negative) Ur Leukocyte Esterase 2+ H (Negative) Urine WBC (Auto) >30 H (0-5) /hpf Urine RBC (Auto) 0-4 (0-4) /hpf U Hyaline Cast (Auto) 1-5 (0-5) /lpf U Epithel Cells (Auto) 5-10 H (0-5) /lpf Urine Bacteria (Auto) 4+ H (Negative) Influenza Type A Ag Neg for Influ A (Neg) Influenza Type B Ag Neg for Influ B (Neg) 09/14/18 09/14/18 09/14/18 Range/Units 08:17 11:22 14:35 WBC (4.8-10.8) K/uL RBC (4.2-5.4) M/uL Hgb (12.0-16.0) g/dL Hct (37-47) % MCV (80-100) fL MCH (25-34) pg MCHC (32-36) g/dL RDW Std Deviation (36.4-46.3) fL RDW Coeff of [place] (11.5-14.5) % Plt Count (130-400) K/uL MPV (7.4-10.4) fL Immature Gran % (Auto) % Neut % (Auto) % Lymph % (Auto) % [place] % (Auto) % Eos % (Auto) % Baso % (Auto) % Immature Gran # (Auto) (0.00-0.02) K/uL Neut # (Auto) (1.4-6.5) K/uL Lymph # (Auto) (1.2-3.4) K/uL [place] # (Auto) (0.11-0.59) K/uL Eos # (Auto) (0-0.5) K/uL Baso # (Auto) (0-0.2) K/uL PT (9.0-12.0) Seconds INR (0.9-1.1) APTT (21.0-31.0) Seconds PTT Ratio VBG pH 7.41 (7.36-7.41) VBG pCO2 48 (38-50) mmHg VBG pO2 24 mmHg VBG HCO3 29 mmol/L VBG O2 Saturation < 60.0 % VBG Base Excess 3.8 mEq/L Barometric Pressure 732.1 mm/Hg Sodium (136-145) mmol/L Potassium (3.5-5.1) mmol/L Chloride (98-107) mmol/L Carbon Dioxide (21-32) mmol/L Anion Gap (3-11) BUN (7-18) mg/dl Creatinine (0.6-1.2) mg/dl Est Cr Clr Drug Dosing ml/min Est GFR ( Amer) Est GFR (Non-Af Amer) BUN/Creatinine Ratio (10-20) Glucose (70-99) mg/dl POC Glucose 206 H (70-99) Lactate 1.2 (0.4-2.0) mmol/L Calcium (8.5-10.1) mg/dl Total Bilirubin (0.2-1) mg/dl AST (15-37) U/L ALT (12-78) U/L Alkaline Phosphatase (45-117) U/L Troponin I (0-0.045) ng/ml NT-Pro-B Natriuret Pep (0-1800) pg/ml Total Protein (6.4-8.2) gm/dl Albumin (3.4-5.0) gm/dl Globulin (2.5-4.0) gm/dl Albumin/Globulin Ratio (0.9-2) TSH (0.300-4.500) uIu/ml Urine Color Urine Appearance (Clear) Urine pH (4.5-7.5) Ur Specific [place] (1.000-1.030) Urine Protein (Negative) Urine Glucose (UA) (Negative) Urine Ketones (Negative) Urine Blood (Negative) Urine Nitrite (Negative) Urine Bilirubin (Negative) Urine Urobilinogen (Negative) Ur Leukocyte Esterase (Negative) Urine WBC (Auto) (0-5) /hpf Urine RBC (Auto) (0-4) /hpf U Hyaline Cast (Auto) (0-5) /lpf U Epithel Cells (Auto) (0-5) /lpf Urine Bacteria (Auto) (Negative) Influenza Type A Ag (Neg) Influenza Type B Ag (Neg) Imaging Data Radiologist's Impression: Radiology results as stated below per my review and the radiologist's interpretation: CT SCAN OF THE BRAIN WITHOUT IV CONTRAST CLINICAL HISTORY: Change in mental status. COMPARISON STUDY: CT of the brain dated 05/15/2018. TECHNIQUE: Unenhanced axial CT scan of the brain is performed from the vertex to the skull base. A dose lowering technique was utilized adhering to the principles of ALARA. CT DOSE: 614.27 mGy.cm FINDINGS: Brain parenchyma: There are age-related involutional changes noting moderate subcortical and periventricular microangiopathic change. There is no hemorrhage , mass effect, or evidence of acute territorial ischemia by CT criteria. Lane- white matter differentiation is preserved. No extra-axial fluid collection is seen. Ventricles, sulci, cisterns: Prominent secondary to involutional change. Intracranial vasculature: There is atherosclerotic calcification of the cavernous carotid arteries. Calvarium: Unremarkable. Sinuses and mastoids: The visualized paranasal sinuses are clear. The mastoid air cells are well pneumatized. Orbits: The bony orbits are grossly intact. There is a right ocular lens implant. IMPRESSION: There is no hemorrhage, mass effect, or evidence of acute territorial ischemia by CT criteria. Electronically signed by: Jimbo Vázquez M.D. 09/14/2018 8:41 AM XR chest 1V portable CLINICAL HISTORY: 78 years-old Female presenting with Sepsis. TECHNIQUE: Portable upright AP view of the chest was obtained. COMPARISON: 05/15/2018. FINDINGS: The patient is slightly [place] rotated. Atherosclerosis of the aortic arch. Cardiac silhouette enlarged. Pulmonary vascular prominence. Mild bronchial wall thickening may be present. Course and underlying lung markings. No focal opacity. No large effusion or pneumothorax. Degenerative changes of the thoracic spine. Advanced degenerative changes of the glenohumeral joints. Upper abdomen normal. IMPRESSION: 1. Cardiomegaly with volume overload/congestive change. No mirian pulmonary edema or focal infiltrate to suggest pneumonia. Electronically signed by: Michael Mast M.D. 09/14/2018 8:11 AM ECG Data Attestation: I personally reviewed and interpreted this ECG as follows: Indication: altered mental status Rate (beats per minute): 87 Rhythm: normal sinus (poor baseline) Findings: no acute ischemic change and no ectopy Comparison ECG Date: from (04/12/2017) Change: no significant change Blood Pressure Blood Pressure Findings: Normal blood pressure Blood Pressure Disposition: did not require urgent referral MDM Narrative This patient comes in as described above. She was placed in room V8. She is here for treatment and evaluation of an episode of confusion. She says she does not feel very well in general and has very vague symptoms. She does have very complex medical history and has a history of CHF and TIAs. Her daughter was worried about that. She is no focal neurologic deficits. She is afebrile and has stable vital signs here. She apparently had a temperature that was low- grade back in the correction. IV access established multiple blood testing was obtained. EKG and chest x-ray were also obtained as well as CAT scan of her head. She was reassessed frequently. She seems stable. She was given IV antibiotics for a UTI this is likely because her symptoms as well. CAT scan of her head is unremarkable. Chest x-ray does not show pulmonary edema. She is nothing she has acute coronary syndrome. She was hydrated with normal saline bolus I started with just 250 mg given the fact that she has congestive heart failure. I do think she needs to be admitted/observed. [facility] hospitalists were consulted for these measure Impression & Plan Sepsis, Confusion, UTI (urinary tract infection) Discharge Plan Visit Data *Final* Discharge Date/Time: 09/14/18 11:47 Chief Complaint: Confusion ED Provider: Tai Cifuentes Discharge Problem: Sepsis, Confusion, UTI (urinary tract infection) Patient Disposition: Admitted As Inpatient Discharge Instructions Interventions: ED Discharge Assessment Last Done: 09/14/18 11:47 The scribe's documentation has been prepared under my direction and personally reviewed by me in its entirety. I confirm that the note above accurately reflects all work, treatment, procedures, and medical decision making performed by me.
[2018-09-14 07:58] LABS: INR 1.1 (0.9-1.1); Partial Thromboplastin Ratio 1.2; Partial Thromboplastin Time 31.8 Seconds (21.0-31.0); Prothrombin Time 10.7 Seconds (9.0-12.0)
[2018-09-14 08:00] LABS: Alanine Aminotransferase 30 U/L (12-78); Albumin Level 3.5 gm/dl (3.4-5.0); Aspartate Aminotransferase 19 U/L (15-37); BUN Creatinine Ratio 12.8 (10-20); Blood Urea Nitrogen 14 mg/dl (7-18); Calcium 8.6 mg/dl (8.5-10.1); Carbon Dioxide 27 mmol/L (21-32); Chloride 93 mmol/L (98-107); Creatinine Clr Calc Pharmacy 53.8 ml/min; Est GFR (African American) 53.9; Est GFR (Non-African American) 46.5; Glucose 152 mg/dl (70-99); Potassium 4.6 mmol/L (3.5-5.1); Sodium 127 mmol/L (136-145)
[2018-09-14 08:05] LABS: Albumin Globulin Ratio 0.9 (0.9-2); Alkaline Phosphatase 86 U/L (45-117); Bilirubin,Total 0.8 mg/dl (0.2-1); NT Pro B Type Natriuretic Pept 232 pg/ml (0-1800); Total Protein 7.5 gm/dl (6.4-8.2); Troponin I < 0.015 ng/ml (0-0.045)
--- NOTE | 2018-09-14 08:12 | XRay Report ---
XR chest 1V portable CLINICAL HISTORY: 78 years-old Female presenting with Sepsis. TECHNIQUE: Portable upright AP view of the chest was obtained. COMPARISON: 05/15/2018. FINDINGS: The patient is slightly PASHTO rotated. Atherosclerosis of the aortic arch. Cardiac silhouette enlarged. Pulmonary vascular prominence. Mild bronchial wall thickening may be present. Course and underlying lung markings. No focal opacity. No large effusion or pneumothorax. Degenerative changes of the thora cic spine. Advanced degenerative changes of the glenohumeral joints. Upper abdomen normal. IMPRESSION: 1. Cardiomegaly with volume overload/congestive change. No mirian pulmonary edema or focal infiltrate to suggest pneumonia. Electronically signed by: Michael Mast M.D. 09/14/2018 8:11 AM
[2018-09-14 08:16] LABS: Appearance Urine Clear (Clear); Bacteria Urine Automated 4+ (Negative); Bilirubin Urine Negative (Negative); Color Urine Yellow; Glucose Urine UA Negative (Negative); Ketones Urine Negative (Negative); Leukocyte Esterase Urine 2+ (Negative); Nitrite Urine Negative (Negative); Protein Urine Negative (Negative); Specific Gravity Urine 1.012 (1.000-1.030); Urobilinogen Urine Negative (Negative); WBC Urine Automated >30 /hpf (0-5)
[2018-09-14] MEDS ORDERED: PIPERACILL/TAZOBAC CONSULT ACTIVE PRN ×2 (08:43→12:22)
[2018-09-14] MEDS ORDERED: PIPERACILLIN/TAZOBACTAM 4.5 GM/120 ML BAG IV ONE (08:43)
[2018-09-14] MEDS ORDERED: SODIUM CHLORIDE 0.9% 1000ML 250 ML IV ONE (08:43)
--- NOTE | 2018-09-14 08:43 | CT Scan Report ---
CT SCAN OF THE BRAIN WITHOUT IV CONTRAST CLINICAL HISTORY: Change in mental status. COMPARISON STUDY: CT of the brain dated 05/15/2018. TECHNIQUE: Unenhanced axial CT scan of the brain is performed from the vertex to the skull base. A do se lowering technique was utilized adhering to the principles of ALARA. CT DOSE: 614.27 mGy.cm FINDINGS: Brain parenchyma: There are age-related involutional changes noting moderate subcortical and periven tricular microangiopathic change. There is no hemorrhage, mass effect, or evidence of acute territori al ischemia by CT criteria. Lane-white matter differentiation is preserved. No extra-axial fluid placido ection is seen. Ventricles, sulci, cisterns: Prominent secondary to involutional change. Intracranial vasculature: There is atherosclerotic calcification of the cavernous carotid arteries. Calvarium: Unremarkable. Sinuses and mastoids: The visualized paranasal sinuses are clear. The mastoid air cells are well pneu matized. Orbits: The bony orbits are grossly intact. There is a right ocular lens implant. IMPRESSION: There is no hemorrhage, mass effect, or evidence of acute territorial ischemia by CT maged garrett. Electronically signed by: Jimbo Vázquez M.D. 09/14/2018 8:41 AM
--- NOTE | 2018-09-14 09:23 | History & Physical Report ---
Date of Service September 14, 2018 History of Present Illness Primary Care Provider: Jame Reeder MD This is a 78 Yo F with PMHx of DM II, peripheral neuropathy, history of TIA, history of pulmonary embolism in 2009 not on anticoagulation, chronic interstitial cystitis likely due to incontinence and vaginal prolapse,, iron deficiency anemia, hyponatremia, HTN, chronic diastolic CHF, nonobstructive CAD , hypothyroidism, GERD, IBS, depression, osteoporosis, memory loss, asthma, COPD , YARI on CPAP. The patient presents with increased confusion from [facility]. Allergies Allergy/AdvReac Type Severity Reaction Status Date / Time KODAK Inhibitors Allergy Unknown ? Verified 05/16/18 01:14 Home Medications Home Medications Medication Instructions Recorded Confirmed Type Calcium 600 + D(3) 1 tab PO BID 05/16/18 05/16/18 History ProAir HFA 2 day INHALATION QID PRN 05/16/18 05/16/18 History Reguloid 1 tbsp PO BID 05/16/18 05/16/18 History Systane Ultra (PF) 1 ophthalmic insert EXT TID 05/16/18 05/16/18 History acetaminophen [Tylenol Extra 1,000 mg PO Q8 PRN 05/16/18 05/16/18 History Strength] amitriptyline 100 mg PO DAILY 05/16/18 05/16/18 History aspirin 81 mg PO DAILY 05/16/18 05/16/18 History atenolol 50 mg PO DAILY 05/16/18 05/16/18 History clopidogrel [Plavix] 75 mg PO DAILY 05/16/18 05/16/18 History conjugated estrogens [Premarin] 1 dose TOPICAL 3XWK 05/16/18 05/16/18 History cyclosporine [Restasis] 1 drp OPHTHALMIC (EYE) Q12H 05/16/18 05/16/18 History dextromethorphan polistirex 10 ml PO Q12H PRN 05/16/18 05/16/18 History [Delsym 12 hour] donepezil 5 mg PO DAILY 05/16/18 05/16/18 History duloxetine 30 mg PO DAILY 05/16/18 05/16/18 History duloxetine 60 mg PO DAILY 05/16/18 05/16/18 History gabapentin 300 mg PO TID 05/16/18 05/16/18 History guaifenesin [Mucinex] 600 mg PO Q12H PRN 05/16/18 05/16/18 History hydrocortisone 1 applic TOPICAL BID PRN 05/16/18 05/16/18 History hydrocortisone 1 dose TOPICAL BID PRN 05/16/18 05/16/18 History ipratropium bromide [Atrovent HFA] 2 day INHALATION QID PRN 05/16/18 05/16/18 History iron 65 mg PO 3XWK 05/16/18 05/16/18 History levothyroxine 250 mcg PO DAILY 05/16/18 05/16/18 History loperamide 1 mg PO DIRECTED PRN 05/16/18 05/16/18 History lorazepam [Ativan] 0.5 mg PO DAILY 05/16/18 05/16/18 History magnesium hydroxide [Milk of 2 - 4 tbsp PO DAILY PRN 05/16/18 05/16/18 History Magnesia] methenamine hippurate 1 g PO DAILY 05/16/18 05/16/18 History metolazone 2.5 mg PO DIRECTED PRN 05/16/18 05/16/18 History mirabegron [Myrbetriq] 50 mg PO DAILY 05/16/18 05/16/18 History mometasone [Nasonex] 1 spray INTRANASAL BID 05/16/18 05/16/18 History montelukast [Singulair] 10 mg PO DAILY 05/16/18 05/16/18 History multivitamin 1 tab PO DAILY 05/16/18 05/16/18 History nystatin 1 applic TOPICAL BID 05/16/18 05/16/18 History pantoprazole 40 mg PO BID 05/16/18 05/16/18 History polyethylene glycol 3350 [Miralax] 17 g PO DAILY PRN 05/16/18 05/16/18 History potassium chloride 60 meq PO BID 05/16/18 05/16/18 History ranitidine HCl 150 mg PO BID 05/16/18 05/16/18 History sertraline 25 mg PO DAILY 05/16/18 05/16/18 History spironolactone 25 mg PO DAILY 05/16/18 05/16/18 History tamsulosin [Flomax] 0.4 mg PO DAILY 05/16/18 05/16/18 History tramadol 50 mg PO Q6H PRN 05/16/18 05/16/18 History trazodone 200 mg PO HS 05/16/18 05/16/18 History triamcinolone acetonide 1 applic EXT BID PRN 05/16/18 05/16/18 History vitamin B complex 1 tab PO DAILY 05/16/18 05/16/18 History zinc oxide [Desitin] 1 applic TOPICAL DIRECTED PRN 05/16/18 05/16/18 History Past Med/Surg History Medical History Diabetes (Chronic) TIA (transient ischemic attack) (Resolved) Pulmonary embolism (Resolved) UTI (urinary tract infection) (Resolved) Cardiac valve prolapse (Chronic) Balance disorder Basal pneumonia of both lungs (Acute) Diabetic peripheral neuropathy associated with type 2 diabetes mellitus Foot deformity Foot pain Loss of sensation Family History Other Family history non-contributory Social History Feels Safe at Home: Yes Smoking Status: Never smoker Physical Exam 2 Vital Signs (Past 24 Hours): Last Vital Signs Temp 36.7 C 09/14/18 07:27 Pulse 90 09/14/18 09:01 Resp 22 09/14/18 09:01 BP 115/63 09/14/18 09:01 Pulse Ox 98 09/14/18 09:01 Results & Data Diagnostic Findings XR chest 1V portable CLINICAL HISTORY: 78 years-old Female presenting with Sepsis. TECHNIQUE: Portable upright AP view of the chest was obtained. COMPARISON: 05/15/2018. FINDINGS: The patient is slightly KYRGYZ rotated. Atherosclerosis of the aortic arch. Cardiac silhouette enlarged. Pulmonary vascular prominence. Mild bronchial wall thickening may be present. Course and underlying lung markings. No focal opacity. No large effusion or pneumothorax. Degenerative changes of the thoracic spine. Advanced degenerative changes of the glenohumeral joints. Upper abdomen normal. IMPRESSION: 1. Cardiomegaly with volume overload/congestive change. No mirian pulmonary edema or focal infiltrate to suggest pneumonia. CT SCAN OF THE BRAIN WITHOUT IV CONTRAST CLINICAL HISTORY: Change in mental status. COMPARISON STUDY: CT of the brain dated 05/15/2018. TECHNIQUE: Unenhanced axial CT scan of the brain is performed from the vertex to the skull base. A dose lowering technique was utilized adhering to the principles of ALARA. CT DOSE: 614.27 mGy.cm FINDINGS: Brain parenchyma: There are age-related involutional changes noting moderate subcortical and periventricular microangiopathic change. There is no hemorrhage , mass effect, or evidence of acute territorial ischemia by CT criteria. Lane- white matter differentiation is preserved. No extra-axial fluid collection is seen. Ventricles, sulci, cisterns: Prominent secondary to involutional change. Intracranial vasculature: There is atherosclerotic calcification of the cavernous carotid arteries. Calvarium: Unremarkable. Sinuses and mastoids: The visualized paranasal sinuses are clear. The mastoid air cells are well pneumatized. Orbits: The bony orbits are grossly intact. There is a right ocular lens implant. IMPRESSION: There is no hemorrhage, mass effect, or evidence of acute territorial ischemia by CT criteria. ECG Additional Comments: 14-SEP-2018 07:23:39 [facility] Sinus rhythm with 1st degree A-V block Anterior infarct , age undetermined Abnormal ECG When compared with ECG of 12-APR-2017 22:04, No significant change was found Vent. rate 87 BPM PA interval 212 ms QRS duration 84 ms QT/QTc 354/425 ms P-R-T axes 51 76 58
--- NOTE | 2018-09-14 10:16 | Consultation ---
Addendum entered and electronically signed by Sharon Sweeney PA-C 09/14/18 11:59: Addendum (Blank) Addendum This note was name consultation initially, however patient is a full admit. Consider this the H&P for billing purposes 11:30a Pt developed worsening stridor while in the ER so soft tissue imaging of the neck will be obtained, as well as initiation of decadron at 2 mg IV. Continue to monitor on tele. Pt is slightly anxious and aggitated after the administration of ativan 0.5 mg IV for increased anxiety earlier. VBG was checked and appears WNL. Also check a TSH with reflex T4. Continue broad spectrum antibiotic coverage with vanc and zosyn. Was discussed with daughter at bedside and son over the phone with Dr. Shen September 14, 2018 11:54 Original Note: Date of Consultation September 14, 2018 Assessment & Plan (1) Chronic interstitial cystitis: (2) Sepsis: (3) Confusion: (4) UTI (urinary tract infection): -To MedSurg with telemetry -Patient was treated with 1 dose of Zosyn while in the ER, will continue on IV ceftriaxone -Continue other supportive care -UA appears to be mildy infected, follow urine culture -Prior to admission it was thought that the patient could be discharged however she became acutely tachycardic in the 120s down in the ER so patient was admitted. -Rx for outpatient cefdinir x 7 day was sent electronically prior to tachycardia - can use pending UCx and sensitivities (5) Tachycardia: -Monitor with telemetry -Patient was administered Ativan 0.5 mg IV while in the ER, she appears to be extremely anxious. Heart rate reached the mid 120s however appeared to stay in normal sinus tach and did not exhibit features of A. fib. -12-lead EKG was obtained, awaiting results -Possible that family increases the patient's anxiety. (6) Diabetes: - Prediabetes - Last A1C was 6.1 in March 2018, no need to recheck. - ISS with accuchecks (7) Diabetic peripheral neuropathy associated with type 2 diabetes mellitus: - Stable (8) CAD (coronary artery disease): - Continue asa 81 mg, atenolol 50 mg daily, plavix 75 mg PO daily (9) Diastolic CHF, chronic: - Does not appear to be in acute exacerbation, patient appears to be euvolemic. - Daily weights, strict I's and O's - Heart healthy diet (10) Hyponatremia: - Na 127 upon arrival to the ER, given small amount of fluids in the ER. - appears to be chronically hyponatremic, mental status stable, does not show signs of confusion (11) YARI (obstructive sleep apnea): - Continue cpap Hs (12) Morbid obesity with BMI of 50.0-59.9, adult: - DIet and exercise to be encouraged prior to discharge (13) Anemia, iron deficiency: -Chronic hemoglobin is stable at 11.0, hematocrit 33.1 (14) Osteoporosis: (15) GERD (gastroesophageal reflux disease): - stable (16) TIA (transient ischemic attack): - Happened several years ago where pt was repeating words, does not appear to be TIA at this time. -Stable (17) DVT prophylaxis: - teds, scds, on plavix and asa, will order lovenox subq Supervising Physician Co-Signing Physician Notes Patient seen and examined. Discussed with VIC Sweeney. Please see full addendum on H/P from same date History of Present Illness Reason for Consultation: Increased incontinence, mild confusion. Requesting Physician: Dr. Cifuentes Attending Physician: Dr. Mey Shen History of Present Illness This is a 78 Yo F with PMHx of DM II, peripheral neuropathy, history of TIA, history of pulmonary embolism in 2009 not on anticoagulation, chronic interstitial cystitis likely due to incontinence and vaginal prolapse,, iron deficiency anemia, hyponatremia, HTN, chronic diastolic CHF, nonobstructive CAD , hypothyroidism, GERD, IBS, depression, osteoporosis, memory loss, asthma, COPD , YARI on CPAP. The patient presents with increased confusion from [facility] which began around 0100 this morning. Patient was found to be increasingly confused and walking in the personal correction, found to be incontinent. She does not remember this event. Patient's daughter is present with her at bedside and supports the history. The patient does have frequent UTIs, most recently was treated for an E. coli infection at the end of July with a prolonged course of antibiotics. She normally wears disposable briefs and has vaginal prolapse which has caused numerous UTIs in the past. She admits to increased frequency but no dysuria. Pt has some cramping in lower abdomen and notes she has not had a BM in several days. Patient is currently also complaining of some mild sore throat, runny nose, congestion and headache. She reports having a slight wheeze however is not coughing nor producing any sputum. Influenza swab was done here and is negative. She has been weaker per the daughters report, and needed assistance this morning where she normally ambulates on her own with walker. Allergies Allergy/AdvReac Type Severity Reaction Status Date / Time KODAK Inhibitors Allergy Unknown ? Verified 09/14/18 09:37 Home Medications Home Medications Medication Instructions Recorded Confirmed Type Reguloid 1 tbsp PO BIDM 05/16/18 09/14/18 History Systane Ultra (PF) 1 ophthalmic insert EXT TIDM 05/16/18 09/14/18 History acetaminophen [Tylenol Extra 1,000 mg PO Q8 PRN 05/16/18 09/14/18 History Strength] amitriptyline 100 mg PO HS 05/16/18 09/14/18 History atenolol 50 mg PO QAM 05/16/18 09/14/18 History clopidogrel [Plavix] 75 mg PO QAM 05/16/18 09/14/18 History cyclosporine [Restasis] 1 drp OPHTHALMIC (EYE) BID 05/16/18 09/14/18 History dextromethorphan polistirex 10 ml PO Q12H PRN 05/16/18 09/14/18 History [Delsym 12 hour] donepezil 5 mg PO HS 05/16/18 09/14/18 History duloxetine 60 mg PO UD 05/16/18 09/14/18 History guaifenesin [Mucinex] 600 mg PO Q12H PRN 05/16/18 09/14/18 History levothyroxine 250 mcg PO QAM 05/16/18 09/14/18 History loperamide 1 mg PO DIRECTED PRN 05/16/18 09/14/18 History lorazepam [Ativan] 0.5 mg PO HS 05/16/18 09/14/18 History magnesium hydroxide [Milk of 2 - 4 tbsp PO DAILY PRN 05/16/18 09/14/18 History Magnesia] methenamine hippurate 1 g PO HS 05/16/18 09/14/18 History metolazone 2.5 mg PO DIRECTED PRN 05/16/18 09/14/18 History mirabegron [Myrbetriq] 50 mg PO QAM 05/16/18 09/14/18 History mometasone [Nasonex] 1 spray INTRANASAL BID 05/16/18 05/16/18 History montelukast [Singulair] 10 mg PO HS 05/16/18 09/14/18 History nystatin 1 applic TOPICAL BID PRN 05/16/18 09/14/18 History pantoprazole 40 mg PO BIDM 05/16/18 09/14/18 History polyethylene glycol 3350 [Miralax] 17 g PO DAILY PRN 05/16/18 09/14/18 History potassium chloride 60 meq PO BIDM 05/16/18 09/14/18 History ranitidine HCl 150 mg PO BIDM 05/16/18 09/14/18 History sertraline 25 mg PO QAM 05/16/18 09/14/18 History spironolactone 25 mg PO QAM 05/16/18 09/14/18 History tamsulosin [Flomax] 0.4 mg PO QAM 05/16/18 09/14/18 History tramadol 50 mg PO Q6H PRN 05/16/18 09/14/18 History trazodone 200 mg PO HS 05/16/18 09/14/18 History vitamin B complex 1 tab PO QAM 05/16/18 09/14/18 History Act Dry Mouth Lozenges 1 mauricio PO HS PRN 09/14/18 09/14/18 History albuterol sulfate [ProAir HFA] 2 puff INHALATION QID PRN 09/14/18 09/14/18 History aspirin 81 mg PO QAM 09/14/18 09/14/18 History calcium carbonate-vitamin D3 1 tab PO BIDM 09/14/18 09/14/18 History [Caltrate 600 + D] cefdinir 300 mg PO BID 7 Days #14 cap 09/14/18 Rx conjugated estrogens [Premarin] 1 applic TOPICAL 2XWK 09/14/18 09/14/18 History ferrous sulfate [iron] 325 mg PO QAM 09/14/18 09/14/18 History gabapentin 300 mg PO TIDM 09/14/18 09/14/18 History glucosamine sulfate [Glucosamine] 1,500 mg PO QAM 09/14/18 09/14/18 History ipratropium bromide [Atrovent HFA] 2 puff INHALATION QID PRN 09/14/18 09/14/18 History ketoconazole [Nizoral] 1 applic TOPICAL WK 09/14/18 09/14/18 History metolazone 2.5 mg PO DAILY PRN 09/14/18 09/14/18 History multivitamin 1 tab PO QAM 09/14/18 09/14/18 History peg 400-propylene glycol (PF) 1 drp OPHTHALMIC (EYE) HS 09/14/18 09/14/18 History [Systane (PF)] Patient History Medical History Morbid obesity with BMI of 50.0-59.9, adult YARI (obstructive sleep apnea) Hyponatremia Diastolic CHF, chronic CAD (coronary artery disease) Chronic interstitial cystitis Sepsis (Acute) Confusion (Acute) UTI (urinary tract infection) (Acute) Diabetes (Chronic) TIA (transient ischemic attack) (Resolved) Pulmonary embolism (Resolved) UTI (urinary tract infection) (Resolved) Cardiac valve prolapse (Chronic) Balance disorder Basal pneumonia of both lungs (Acute) Diabetic peripheral neuropathy associated with type 2 diabetes mellitus Foot deformity Foot pain Loss of sensation Family History Other Family history non-contributory Social History Current Living Situation: Personal Care Facility Current Living Situation Comment: [facility] Other Information That Helps Us Care for You: No Feels Safe at Home: Yes Safety Concerns: Feels Safe At This Time Smoking Status: Never smoker Hx Alcohol Use: No Hx Substance Use: No Beliefs That Will Affect Care: None Preferred Language: Japanese Communication Ability: Effective Review of Systems Constitutional: No fever, sweats or chills, + headache Eyes: No diplopia, no worsening or blurred vision ENT: normal hearing, no trouble swallowing, + rhinorrhea, + slight sore throat Respiratory: No cough, sputum, dyspnea at rest or on exertion Cardiovascular: No chest pain, tightness or palpitations Abdomen: No pain, nausea, vomiting, diarrhea or constipation Musculoskeletal: No joint pain, calf pain, swelling Neurologic: + slight generalized weakness, no numbness/tingling, or balance problems, + uses a walker at baseline for ambulation Psychiatric: No anxiety or depression Skin: No rash or itch Physical Exam 2 Vital Signs (Past 24 Hours): Last Vital Signs Temp 36.7 C 09/14/18 07:27 Pulse 90 09/14/18 09:01 Resp 22 09/14/18 09:01 BP 115/63 09/14/18 09:01 Pulse Ox 98 09/14/18 09:01 Physical Exam: General: awake, alert, no apparent distress, + morbidly obese with BMI of Head: Normocephalic, atraumatic ENT: PERRL, EOMI, no pharyngeal exudate, mucous membranes moist Chest: Clear to auscultation, on room air, no wheezing rales or rhonchi. O2 sats at 95% on RA. Cardiac: Regular rate and rhythm, no murmur, no JVD, normal peripheral pulses, good capillary refill Abdominal: NABS x 4 quadrants, soft, generalized tenderness to palpation, no rebound, guarding or tenderness. Extremities: Normal inspection, no peripheral edema or erythema, calfs nontender to palpation Psych: Normal mood and affect Neuro: AAO x 3, strength intact bilaterally and related 5/5, no motor deficits, speech is clear, no peripheral sensory deficits _ (1) UTI (urinary tract infection) Encounter type: Hematuria presence: Indwelling urinary catheter type: Urinary tract infection type: (2) Sepsis Sepsis type:
[2018-09-14] MEDS ORDERED: cefTRIAXone SODIUM 2,000 MG in DEXTROSE 5% 50 ML IV STA (10:23)
[2018-09-14] MEDS ORDERED: LORazepam 0.5 MG/1 ML VIAL IV STA (10:43)
[2018-09-14] MEDS ORDERED: LORazepam 2 MG/4 ML VIAL ONE (10:47)
[2018-09-14 11:40] LABS: Base Excess VBG 3.8 mEq/L; HCO3 VBG 29 mmol/L; PCO2 VBG 48 mmHg (38-50); PO2 VBG 24 mmHg; pH VBG 7.41 (7.36-7.41)
[2018-09-14 11:41] LABS: Oxygen Saturation VBG < 60.0 %
[2018-09-14] MEDS ORDERED: metOLazone 2.5 MG TABLET PO PRN (12:22)
[2018-09-14] MEDS ORDERED: DEXAMETHASONE SOD INJ 4 MG/ML VIAL IV STA (12:22)
[2018-09-14] MEDS ORDERED: guaiFENesin 600 MG TABCR PO PRN (12:22)
[2018-09-14] MEDS ORDERED: NYSTATIN POWDER 15GM BTL EXT PRN (12:22)
[2018-09-14] MEDS ORDERED: [UNRECOGNIZED DRUG - OTHER] PO PRN (12:22)
[2018-09-14] MEDS ORDERED: ONDANSETRON INJ 2 MG/ML 2 ML VIAL IV PRN (12:22)
[2018-09-14] MEDS ORDERED: ALBUTEROL HFA 8 GM INHALER INH PRN (12:22)
[2018-09-14] MEDS ORDERED: MAGNESIUM HYDROXIDE SUSP 30 ML UDC PO PRN (12:22)
[2018-09-14] MEDS ORDERED: GLUCAGON FOR INJ 1 MG VIAL SQ PRN (12:22)
[2018-09-14] MEDS ORDERED: LOPERAMIDE HCL 2 MG CAP PO PRN (12:22)
[2018-09-14] MEDS ORDERED: DEXTROMETHORPHAN POLYMR COMPLX 60 MG/10 ML UDP PO PRN (12:22)
[2018-09-14] MEDS ORDERED: VANCOMYCIN HCL 1,000 MG in SODIUM CHLORIDE 0.9% 250 ML IV SCH (12:22)
[2018-09-14] MEDS ORDERED: CARBOHYDRATES FOR HYPOGLYCEMIA PO PRN (12:22)
[2018-09-14] MEDS ORDERED: POLYETHYLENE (MIRALAX) 17 GM PACK PO PRN (12:22)
[2018-09-14] MEDS ORDERED: IPRATROPIUM BROMIDE HFA INHALER INH PRN (12:22)
[2018-09-14] MEDS ORDERED: GLUCOSE 10 TABS/TUBE PO PRN (12:22)
[2018-09-14] MEDS ORDERED: VANCOMYCIN CONSULT ACTIVE PRN (12:22)
[2018-09-14] MEDS ORDERED: DEXTROSE 50% 50 ML SYRINGE IV PRN (12:22)
[2018-09-14] MEDS ORDERED: GLUCOSE 40% GEL 15 GM TUBE PO PRN (12:22)
[2018-09-14] MEDS: ACETAMINOPHEN 500 MG TAB PO PRN (12:46)
[2018-09-14] MEDS ORDERED: VANCOMYCIN HCL 2,750 MG in SODIUM CHLORIDE 0.9% 500 ML IV ONE (13:00)
[2018-09-14] MEDS ORDERED: DEXAMETHASONE SOD PHOSPHATE 2 MG in SYRINGE 0 ML IV ONE (13:15)
--- NOTE | 2018-09-14 14:07 | Pharmacy Report ---
Pharmacy Abx Initial Consult - Date of Service September 14, 2018 - Pharmacy Dosing Scope Date of Consult: 09/14/18 Consultation requested by: Sharon Sweeney PA-C Pharmacy is consulted to initiate Vancomycin and Zosyn IV dosing therapy, order appropriate labs and adjust drug dose/frequency. - Subjective The patient is a 78 year old F admitted on 09/14/18 10:51. - Objective Height: 5 ft 3 in Weight: 129.1 kg Vital Signs (Past 12hrs): Vital Signs Temp Pulse Pulse Resp BP BP Pulse Ox 09/14/18 12:30 39.0 C H 116 H 22 91/50 L 95 09/14/18 11:32 121 H 29 H 117/83 99 09/14/18 11:23 121 H 22 196/171 H 98 09/14/18 11:03 115 H 34 H 202/118 H 99 09/14/18 10:58 96 09/14/18 10:54 122 H 34 H 182/156 H 100 09/14/18 10:49 121 H 24 175/166 H 95 09/14/18 10:40 125 H 26 H 91 09/14/18 10:30 121 H 30 H 91 09/14/18 10:20 108 H 36 H 77 L 09/14/18 10:01 86 32 H 111/90 94 09/14/18 09:46 88 23 98/73 L 95 09/14/18 09:16 81 23 131/69 95 09/14/18 09:01 90 22 115/63 98 09/14/18 08:46 82 19 121/54 L 94 09/14/18 08:42 89 23 100/58 L 95 09/14/18 08:20 90 20 116/72 94 09/14/18 07:46 95 09/14/18 07:30 86 26 H 97 09/14/18 07:27 36.7 C 91 H 91 H 18 134/72 134/72 95 Lab Results (24hrs): Laboratory Tests (24 Hours) 09/14/18 09/14/18 06:55 06:55 WBC 12.50 H Neut # (Auto) 10.23 H Creatinine 1.13 Est Cr Clr Drug Dosing 53.8 Micro Results: 09/14/18 08:17 Blood Culture - Pending Blood 09/14/18 08:15 Blood Culture - Pending Blood 09/14/18 08:00 Urine Culture - Pending Urine,Clean Catch - Risk Factors for Resistance * Resident in a chcf or extended-care facility -- patient is a resident at [facility] [place] * History of infection with a multidrug-resistant organism: urine culture from previous admission in July 2018 grew e. coli R to Ampicillin, Unasyn, Cafazolin, Cefoxitin, Cefuroxime, Ciprofloxacin, and Levofloxacin. Intermediate resistance to Macrobid. * Antimicrobial use within the last 90 days -- patient has been on several antibiotics within the last year for recurrent UTIs, most recently Bactrim and Macrobid. - Assessment & Plan Assessment 78 year old F with h/o DM, recurrent UTI, chronic cystitis 2/2 incontinence and vaginal prolapse. Presents to ED with her daughter from [facility]. Pt was confused and incontinent; she does not remember this episode. She reports increased urinary frequency and lower abdominal cramping but no dysuria. Plan Vancomycin and Zosyn for treatment of recurrent UTI. Vancomycin IV * Estimated PK Parameters: Vd 0.7 L/kg, Chapito 0.049 hr-1, t1/2 ~14 hr * Loading dose: 2750 mg (~21 mg/kg) * Maintenance dose: 1750 mg IV (13.5 mg/kg) every 16 hours * Goal trough level : 15 to 20 mcg/mL * A less than traditional dose has been selected due to likelihood of drug accumulation in obese patient. * Will not order a level at this time until Hospitalists decide to continue antibiotics beyond 48 hours. Piperacillin/tazobactam * 4.5 g bolus administered over 30 minutes, then 4.5 g IV extended infusion every 8 hours for CrCl greater than 20 mL/min. * Aggressive dosing selected due to BMI 35 or more. Pharmacy will continue to follow and will adjust dose/frequency as necessary. Thank you.
--- NOTE | 2018-09-14 14:20 | XRay Report ---
XR soft tissue neck CLINICAL HISTORY: 78 years-old Female presenting with Assess for etiology of stridor. TECHNIQUE: Frontal and lateral views of the neck were obtained. COMPARISON: None. FINDINGS: The patient is edentulous. The epiglottis is not thickened though may be redundant. The soft palate e ffaces the oropharynx, which is relatively diminutive. The nasopharynx is patent. No evidence of thic kening of the aryepiglottic folds. The larynx is grossly patent. No evidence of narrowing of the wyatt nx or upper trachea. No prevertebral soft tissue swelling. Grossly normal cervical spine. Lung apices grossly normal. Possible cardiomegaly with pulmonary vascular prominence. IMPRESSION: 1. Possible effacement of the oropharynx due to adenoidal/lymphoid hyperplasia or redundant soft pal ate. Otherwise patent aerodigestive tract. No evidence of laryngeal narrowing. 2. Volume overload in the setting of cardiomegaly. Electronically signed by: Michael Mast M.D. 09/14/2018 2:19 PM
[2018-09-14] MEDS: GABAPENTIN 300 MG CAP PO SCH ×2 (14:53→17:09)
[2018-09-14] MEDS: BENZONATATE 100 MG CAPSULE PO SCH ×2 (14:54→20:40)
[2018-09-14] MEDS: PIPERACILLIN/TAZOBACTAM 4.5 GM/120 ML BAG IV SCH ×2 (14:55→21:55)
[2018-09-14] MEDS: DULOXETINE HCL 60 MG CAP PO SCH (14:56)
[2018-09-14] MEDS: INSULIN ASPART 100 UNITS/ML 3 ML PEN SC SCH ×3 (14:56→20:41)
[2018-09-14] MEDS ORDERED: RESTASIS - ORDER AWAITING ACTION SCH (16:00)
[2018-09-14] MEDS ORDERED: SODIUM CHLORIDE 0.9% 1000ML 500 ML IV ONE (17:01)
[2018-09-14] MEDS: POTASSIUM CHLORIDE 20 MEQ TABCR PO SCH (17:09)
[2018-09-14] MEDS: PANTOprazole 40 MG TAB PO SCH (17:09)
[2018-09-14] MEDS: CALCIUM 600MG + VIT D 400 IU TAB PO SCH (17:09)
[2018-09-14] MEDS: PSYLLIUM 58.6% POWDER PACKET PO SCH (17:10)
[2018-09-14] MEDS: LEVALBUTEROL HCL 1.25 MG/3 ML NEB NEB SCH ×2 (19:04→20:02)
[2018-09-14] MEDS: AMITRIPTYLINE HCL 100 MG TAB PO SCH (20:40)
[2018-09-14] MEDS: ARTIFICIAL TEARS OP SCH (20:40)
[2018-09-14] MEDS: TRAZODONE HCL 100 MG TAB PO SCH (20:40)
[2018-09-14] MEDS: guaiFENesin 600 MG TABCR PO SCH (20:40)
[2018-09-14] MEDS: DONEPEZIL HCL 5 MG TAB PO SCH (20:40)
[2018-09-14] MEDS: cycloSPORINE (RESTASIS) OP SCH (20:40)
[2018-09-14] MEDS: MONTELUKAST SODIUM 10 MG TABLET PO SCH (20:40)
[2018-09-14] MEDS: METHENAMINE HIPPURATE 1 GM TAB PO SCH (20:41)
[2018-09-14] MEDS: LORazepam 0.5 MG TAB PO SCH (20:44)
[2018-09-15] MEDS: LEVALBUTEROL HCL 1.25 MG/3 ML NEB NEB SCH ×4 (01:54→19:51)
[2018-09-15] MEDS ORDERED: VANCOMYCIN HCL 1,750 MG in SODIUM CHLORIDE 0.9% 500 ML IV SCH (05:00)
[2018-09-15] MEDS: PIPERACILLIN/TAZOBACTAM 4.5 GM/120 ML BAG IV SCH ×3 (05:34→21:34)
[2018-09-15] MEDS: LEVOTHYROXINE SODIUM 125 MCG TABLET PO SCH (05:39)
[2018-09-15 06:10] LABS: Hematocrit (blood only) 31.9 % (37-47); Hemoglobin 10.6 g/dL (12.0-16.0); Mean Corpuscular Hgb Conc 33.2 g/dL (32-36); Mean Corpuscular Volume 90.1 fL (80-100); Mean Platelet Volume 9.3 fL (7.4-10.4); Platelet Count 180 K/uL (130-400); RDW Coefficient of Variation 14.1 % (11.5-14.5); RDW Standard Deviation 46.7 fL (36.4-46.3); Red Blood Count 3.54 M/uL (4.2-5.4); White Blood Count 14.97 K/uL (4.8-10.8)
[2018-09-15 06:46] LABS: Albumin Level 2.9 gm/dl (3.4-5.0); BUN Creatinine Ratio 11.9 (10-20); Calcium 8.3 mg/dl (8.5-10.1); Creatinine Clr Calc Pharmacy 65.4 ml/min; Est GFR (African American) 68.2; Est GFR (Non-African American) 58.9; Potassium 3.9 mmol/L (3.5-5.1)
[2018-09-15 06:47] LABS: Albumin Globulin Ratio 0.7 (0.9-2); Bilirubin,Total 0.6 mg/dl (0.2-1); Globulin 4.3 gm/dl (2.5-4.0); Total Protein 7.2 gm/dl (6.4-8.2)
[2018-09-15 06:53] LABS: INR 1.2 (0.9-1.1); Prothrombin Time 11.6 Seconds (9.0-12.0)
[2018-09-15] MEDS: DULOXETINE HCL 60 MG CAP PO SCH ×2 (08:57→13:20)
[2018-09-15] MEDS: PANTOprazole 40 MG TAB PO SCH ×2 (08:57→17:35)
[2018-09-15] MEDS: CALCIUM 600MG + VIT D 400 IU TAB PO SCH ×2 (08:58→17:35)
[2018-09-15] MEDS: SERTRALINE HCL 50 MG TABLET PO SCH (08:58)
[2018-09-15] MEDS: POTASSIUM CHLORIDE 20 MEQ TABCR PO SCH ×2 (08:58→17:35)
[2018-09-15] MEDS: PSYLLIUM 58.6% POWDER PACKET PO SCH ×2 (08:59→16:49)
[2018-09-15] MEDS: GABAPENTIN 300 MG CAP PO SCH ×3 (08:59→17:36)
[2018-09-15] MEDS: ASPIRIN 81 MG ECTAB PO SCH (09:00)
[2018-09-15] MEDS: FERROUS SULFATE 325 MG TAB PO SCH (09:00)
[2018-09-15] MEDS: SPIRONOLACTONE 25 MG TAB PO SCH (09:00)
[2018-09-15] MEDS: GLUCOSAMINE SULFATE 500 MG CAP PO SCH (09:01)
[2018-09-15] MEDS: ENOXAPARIN INJ 40 MG/0.4 ML SYR SQ SCH (09:01)
[2018-09-15] MEDS: TAMSULOSIN HCL 0.4 MG CAP PO SCH (09:01)
[2018-09-15] MEDS: guaiFENesin 600 MG TABCR PO SCH ×2 (09:02→20:49)
[2018-09-15] MEDS: MULTIVITAMIN TAB PO SCH (09:03)
[2018-09-15] MEDS: MIRABEGRON ER 25 MG TAB PO SCH (09:03)
[2018-09-15] MEDS: ATENOLOL 50 MG TABLET PO SCH (09:04)
[2018-09-15] MEDS: CLOPIDOGREL BISULFATE 75 MG TAB PO SCH (09:04)
[2018-09-15] MEDS: BENZONATATE 100 MG CAPSULE PO SCH ×3 (09:04→20:50)
[2018-09-15] MEDS: VITAMIN B COMPLEX TAB PO SCH (09:04)
[2018-09-15] MEDS: cycloSPORINE (RESTASIS) OP SCH ×2 (09:05→20:52)
[2018-09-15] MEDS: INSULIN ASPART 100 UNITS/ML 3 ML PEN SC SCH ×4 (09:10→21:01)
[2018-09-15 12:12] LABS: Estimated Average Glucose 134 mg/dl
[2018-09-15 12:18] LABS: Iron 26 mcg/dl (35-150)
--- NOTE | 2018-09-15 16:22 | Hospitalist Progress Note ---
Date of Service September 15, 2018 Assessment & Plan (1) Chronic interstitial cystitis: (2) Sepsis: (3) Confusion: (4) UTI (urinary tract infection): (5) Tachycardia: (6) Diabetes: (7) Diabetic peripheral neuropathy associated with type 2 diabetes mellitus: (8) CAD (coronary artery disease): (9) Diastolic CHF, chronic: (10) Hyponatremia: (11) YARI (obstructive sleep apnea): (12) Morbid obesity with BMI of 50.0-59.9, adult: (13) Anemia, iron deficiency: (14) Osteoporosis: (15) GERD (gastroesophageal reflux disease): (16) TIA (transient ischemic attack): (17) DVT prophylaxis: 78-year-old white female admitted to hospital because of sepsis and possible metabolic encephalopathy associated with confusion on September 14, 2018, Sepsis with gram-negative bacteremia 2 out of 2 in blood culture UTI, chronic interstitial cystitis: Possible metabolic encephalopathy with confusion: Continue Zosyn , continue Vanco Tachycardia on admission, resolved, continue telemetry Prediabetes with A1c 6.1, Diabetic peripheral neuropathy associated with type 2 diabetes mellitus: hx of CAD Continue asa 81 mg, atenolol 50 mg daily, plavix 75 mg PO daily Chronic diastolic CHF, Does not appear to be in acute exacerbation, improved output, Possible chronic hyponatremia: Today's improved to 133, Obstructive sleep apnea, morbid obesity, Chronic anemia, possible from chronic disease per iron testing, Osteoporosis, GERD, history of TIA, stable continue current medication, DVT prophylaxis: ordered lovenox subq Subjective Doing good, no more confused, awake alert orientated conversational, No complaint, Afebrile, occasional cough, Review of Systems Constitutional: Positive weakness, or fatigue Respiratory: no cough, sputum, wheezing, or dyspnea on exertion Cardiac: No chest pain, No orthopnea, Abdomen: No pain, No nausea, No vomiting, No diarrhea, No constipation, No GI bleeding Musculoskeletal: No joint pain, No muscle pain, No swelling, No calf pain, No problem reported : No dysuria, No urinary frequency, No incontinence, No hematuria Neurologic: No paralysis, No weakness, No numbness/tingling, No vertigo, No balance problems Psychiatric: No depression symptoms, No anhedonism, No anxiety, No insomnia, No substance abuse Heme: No abnormal bleeding/bruising, No clotting problems, No swollen lymph nodes, No night sweats Skin: No rash, No itch, No new/changing skin lesions, No color change, No bleeding Physical Exam 2 Vital Signs (Past 24 Hours): Last Vital Signs Temp 36.6 C 09/15/18 15:48 Pulse 71 09/15/18 15:54 Resp 20 09/15/18 15:48 BP 102/63 09/15/18 15:48 Pulse Ox 96 09/15/18 15:48 Physical Exam: General Appearance: WD/WN, mild weak and pale, no apparent distress, Eyes: normal inspection, PERRL, EOMI, sclerae normal ENT: normal ENT inspection, hearing grossly normal, pharynx normal Neck: supple, no adenopathy, thyroid normal, no JVD, no carotid bruits, trachea midline Respiratory/Chest: chest non-tender, normal breath sounds no accessory muscle use, breath sounds, rales, right lung has occasional wheezing Cardiovascular: regular rate, rhythm, no JVD, no murmur Abdomen: normal bowel sounds, non tender, soft, no organomegaly, Extremities: normal range of motion, non-tender, normal inspection, no pedal edema, no calf tenderness, normal capillary refill , pelvis stable, joint has no limited range of motion, capillary refill is normal, no cyanosis clubbing Neurologic/Psychiatric: racker octave board II-XII nml as tested, no motor/sensory deficits, alert, normal mood/affect, oriented x 3 Skin: normal color, warm/dry, no rash Lymphatic: no adenopathy Results & Data Laboratory Results Laboratory Results - last 24 hr 09/14/18 09/14/18 09/14/18 17:00 17:26 20:35 WBC RBC Hgb Hct MCV MCH MCHC RDW Std Deviation RDW Coeff of Chalino Plt Count MPV PT INR Sodium Potassium Chloride Carbon Dioxide Anion Gap BUN Creatinine Est Cr Clr Drug Dosing Est GFR ( Amer) Est GFR (Non-Af Amer) BUN/Creatinine Ratio Glucose POC Glucose 240 H 209 H Estimat Average Glucose Hemoglobin A1c Calcium Iron TIBC Total Bilirubin AST ALT Alkaline Phosphatase Total Protein Albumin Globulin Albumin/Globulin Ratio Lipase 71 L Vitamin B12 09/15/18 09/15/18 09/15/18 05:46 05:46 05:46 WBC 14.97 H RBC 3.54 L Hgb 10.6 L Hct 31.9 L MCV 90.1 MCH 29.9 MCHC 33.2 RDW Std Deviation 46.7 H RDW Coeff of Chalino 14.1 Plt Count 180 MPV 9.3 PT 11.6 INR 1.2 H Sodium 133 L Potassium 3.9 D Chloride 101 Carbon Dioxide 28 Anion Gap 4.0 BUN 11 Creatinine 0.93 Est Cr Clr Drug Dosing 65.4 Est GFR ( Amer) 68.2 Est GFR (Non-Af Amer) 58.9 BUN/Creatinine Ratio 11.9 Glucose 148 H POC Glucose Estimat Average Glucose Hemoglobin A1c Calcium 8.3 L Iron TIBC Total Bilirubin 0.6 AST 19 ALT 26 Alkaline Phosphatase 78 Total Protein 7.2 Albumin 2.9 L Globulin 4.3 H Albumin/Globulin Ratio 0.7 L Lipase Vitamin B12 09/15/18 09/15/18 09/15/18 11:33 11:33 11:33 WBC RBC Hgb Hct MCV MCH MCHC RDW Std Deviation RDW Coeff of Chalino Plt Count MPV PT INR Sodium Potassium Chloride Carbon Dioxide Anion Gap BUN Creatinine Est Cr Clr Drug Dosing Est GFR ( Amer) Est GFR (Non-Af Amer) BUN/Creatinine Ratio Glucose POC Glucose Estimat Average Glucose 134 Hemoglobin A1c 6.3 H Calcium Iron 26 L TIBC 237 L Total Bilirubin AST ALT Alkaline Phosphatase Total Protein Albumin Globulin Albumin/Globulin Ratio Lipase Vitamin B12 824 09/15/18 11:36 WBC RBC Hgb Hct MCV MCH MCHC RDW Std Deviation RDW Coeff of Chalino Plt Count MPV PT INR Sodium Potassium Chloride Carbon Dioxide Anion Gap BUN Creatinine Est Cr Clr Drug Dosing Est GFR ( Amer) Est GFR (Non-Af Amer) BUN/Creatinine Ratio Glucose POC Glucose 194 H Estimat Average Glucose Hemoglobin A1c Calcium Iron TIBC Total Bilirubin AST ALT Alkaline Phosphatase Total Protein Albumin Globulin Albumin/Globulin Ratio Lipase Vitamin B12 Microbiology 09/14/18 08:00 Urine,Clean Catch Urine Culture - Preliminary Escherichia coli 09/14/18 08:15 Blood Blood Culture - Preliminary Gram negative bacilli 09/14/18 08:17 Blood Blood Culture - Preliminary Gram negative bacilli _ (1) Sepsis Sepsis type: (2) UTI (urinary tract infection) Encounter type: Hematuria presence: Indwelling urinary catheter type: Urinary tract infection type:
[2018-09-15] MEDS: LORazepam 0.5 MG TAB PO SCH (20:49)
[2018-09-15] MEDS: DONEPEZIL HCL 5 MG TAB PO SCH (20:50)
[2018-09-15] MEDS: TRAZODONE HCL 100 MG TAB PO SCH (20:52)
[2018-09-15] MEDS: MONTELUKAST SODIUM 10 MG TABLET PO SCH (20:53)
[2018-09-15] MEDS: METHENAMINE HIPPURATE 1 GM TAB PO SCH (20:53)
[2018-09-15] MEDS: AMITRIPTYLINE HCL 100 MG TAB PO SCH (20:53)
[2018-09-15] MEDS ORDERED: PREMARIN VAG CRM 14 APPLN/30 GM TUBE PV SCH (21:00)
[2018-09-15] MEDS: SYSTANE ULTRA OP SCH (21:15)
[2018-09-15] MEDS: [UNRECOGNIZED DRUG - OTHER] OP SCH (21:15)
[2018-09-15] MEDS: ARTIFICIAL TEARS OP SCH (21:16)
[2018-09-15] MEDS: ACETAMINOPHEN 500 MG TAB PO PRN (23:54)
[2018-09-15] MEDS: TRAMADOL HCL 50 MG TABLET PO PRN (23:55)
[2018-09-16] MEDS: LEVALBUTEROL HCL 1.25 MG/3 ML NEB NEB SCH ×4 (01:44→20:24)
[2018-09-16 06:00] LABS: Basophils # (auto) 0.01 K/uL (0-0.2); Basophils % (auto) 0.1 %; Eosinophils # (auto) 0.26 K/uL (0-0.5); Eosinophils % (auto) 2.7 %; Hematocrit (blood only) 31.8 % (37-47); Hemoglobin 10.4 g/dL (12.0-16.0); Immature Granulocytes # (auto) 0.02 K/uL (0.00-0.02); Immature Granulocytes % (auto) 0.2 %; Lymphocytes # (auto) 1.87 K/uL (1.2-3.4); Lymphocytes % (auto) 19.7 %; Mean Corpuscular Hgb Conc 32.7 g/dL (32-36); Mean Corpuscular Volume 90.3 fL (80-100); Mean Platelet Volume 9.1 fL (7.4-10.4); Monocytes # (auto) 0.89 K/uL (0.11-0.59); Monocytes % (auto) 9.4 %; Neutrophils # (auto) 6.45 K/uL (1.4-6.5); Neutrophils % (auto) 67.9 %; Platelet Count 191 K/uL (130-400); RDW Coefficient of Variation 14.1 % (11.5-14.5); RDW Standard Deviation 47.2 fL (36.4-46.3); Red Blood Count 3.52 M/uL (4.2-5.4)
[2018-09-16] MEDS: PIPERACILLIN/TAZOBACTAM 4.5 GM/120 ML BAG IV SCH (06:14)
[2018-09-16] MEDS: LEVOTHYROXINE SODIUM 125 MCG TABLET PO SCH (06:14)
[2018-09-16 06:23] LABS: INR 1.1 (0.9-1.1); Prothrombin Time 10.9 Seconds (9.0-12.0)
[2018-09-16 06:38] LABS: Albumin Level 2.8 gm/dl (3.4-5.0); BUN Creatinine Ratio 14.9 (10-20); Calcium 8.6 mg/dl (8.5-10.1); Est GFR (African American) 66.5; Est GFR (Non-African American) 57.4; Magnesium 1.9 mg/dl (1.8-2.4); Potassium 4.7 mmol/L (3.5-5.1)
[2018-09-16 06:51] LABS: Albumin Globulin Ratio 0.7 (0.9-2); Bilirubin,Total 0.3 mg/dl (0.2-1); Phosphorus 3.6 mg/dl (2.5-4.9); Total Protein 6.8 gm/dl (6.4-8.2)
[2018-09-16] MEDS: MULTIVITAMIN TAB PO SCH (08:34)
[2018-09-16] MEDS: PSYLLIUM 58.6% POWDER PACKET PO SCH ×2 (08:35→17:37)
[2018-09-16] MEDS: PANTOprazole 40 MG TAB PO SCH ×2 (08:35→17:35)
[2018-09-16] MEDS: guaiFENesin 600 MG TABCR PO SCH ×2 (08:36→20:02)
[2018-09-16] MEDS: POTASSIUM CHLORIDE 20 MEQ TABCR PO SCH ×2 (08:36→17:37)
[2018-09-16] MEDS: CALCIUM 600MG + VIT D 400 IU TAB PO SCH ×2 (08:37→17:38)
[2018-09-16] MEDS: DULOXETINE HCL 60 MG CAP PO SCH ×2 (08:37→13:01)
[2018-09-16] MEDS: CLOPIDOGREL BISULFATE 75 MG TAB PO SCH (08:37)
[2018-09-16] MEDS: GABAPENTIN 300 MG CAP PO SCH ×3 (08:37→17:35)
[2018-09-16] MEDS: ATENOLOL 50 MG TABLET PO SCH (08:37)
[2018-09-16] MEDS: TAMSULOSIN HCL 0.4 MG CAP PO SCH (08:38)
[2018-09-16] MEDS: SPIRONOLACTONE 25 MG TAB PO SCH (08:38)
[2018-09-16] MEDS: MIRABEGRON ER 25 MG TAB PO SCH (08:38)
[2018-09-16] MEDS: VITAMIN B COMPLEX TAB PO SCH (08:38)
[2018-09-16] MEDS: GLUCOSAMINE SULFATE 500 MG CAP PO SCH (08:39)
[2018-09-16] MEDS: FERROUS SULFATE 325 MG TAB PO SCH (08:40)
[2018-09-16] MEDS: ASPIRIN 81 MG ECTAB PO SCH (08:40)
[2018-09-16] MEDS: SERTRALINE HCL 50 MG TABLET PO SCH (08:40)
[2018-09-16] MEDS: cycloSPORINE (RESTASIS) OP SCH ×2 (08:41→20:05)
[2018-09-16] MEDS: SYSTANE ULTRA OP SCH ×3 (08:42→20:05)
[2018-09-16] MEDS: [UNRECOGNIZED DRUG - OTHER] OP SCH ×3 (08:42→20:05)
[2018-09-16] MEDS: BENZONATATE 100 MG CAPSULE PO SCH ×3 (08:43→20:00)
[2018-09-16] MEDS: INSULIN ASPART 100 UNITS/ML 3 ML PEN SC SCH ×4 (08:44→20:34)
[2018-09-16] MEDS: ENOXAPARIN INJ 40 MG/0.4 ML SYR SQ SCH (09:00)
--- NOTE | 2018-09-16 12:12 | Hospitalist Progress Note ---
Date of Service September 16, 2018 Assessment & Plan (1) Chronic interstitial cystitis: (2) Sepsis: (3) Confusion: (4) UTI (urinary tract infection): (5) Tachycardia: (6) Diabetes: (7) Diabetic peripheral neuropathy associated with type 2 diabetes mellitus: (8) CAD (coronary artery disease): (9) Diastolic CHF, chronic: (10) Hyponatremia: (11) YARI (obstructive sleep apnea): (12) Morbid obesity with BMI of 50.0-59.9, adult: (13) Anemia, iron deficiency: (14) Osteoporosis: (15) GERD (gastroesophageal reflux disease): (16) TIA (transient ischemic attack): (17) DVT prophylaxis: 78-year-old white female admitted to hospital because of sepsis and possible metabolic encephalopathy associated with confusion on September 14, 2018, E. coli UTI and E. coli bacteremia, stable improving Sepsis with ecoli bacteremia 2 out of 2 in blood culture e coli UTI, chronic interstitial cystitis: Possible metabolic encephalopathy with confusion: Has been on Zosyn , vanco, switch to Rocephin IV, sensitivity, Tachycardia on admission, likely from sepsis, resolved, continue telemetry Prediabetes with A1c 6.1, Diabetic peripheral neuropathy associated with type 2 diabetes mellitus: On diet control at home, hx of CAD Continue asa 81 mg, atenolol 50 mg daily, plavix 75 mg PO daily Chronic diastolic CHF, Does not appear to be in acute exacerbation, improved output, Possible chronic hyponatremia: Today's is 131 from 133, Obstructive sleep apnea, morbid obesity, Chronic anemia, possible from chronic disease per iron testing, Osteoporosis, GERD, history of TIA, stable continue current medication, DVT prophylaxis: ordered lovenox subq , increase activity PTOT, out of bed, continue current care, follow-up blood culture results of the repeated, possible need totally 14 days of antibiotics for her E. coli bacteremia Subjective Continue improving, report feeling better, no more confused, awake alert orientated conversational, ALT of bed to the chair, cough, no sputum, deny wheezing No complaint, Afebrile, Review of Systems Constitutional: Positive weakness, or fatigue Respiratory: no cough, sputum, wheezing, or dyspnea on exertion Cardiac: No chest pain, No orthopnea, Abdomen: No pain, No nausea, No vomiting, No diarrhea, No constipation, No GI bleeding Musculoskeletal: No joint pain, No muscle pain, No swelling, No calf pain, No problem reported : No dysuria, No urinary frequency, No incontinence, No hematuria Neurologic: No paralysis, No weakness, No numbness/tingling, No vertigo, No balance problems Psychiatric: No depression symptoms, No anhedonism, No anxiety, No insomnia, No substance abuse Heme: No abnormal bleeding/bruising, No clotting problems, No swollen lymph nodes, No night sweats Skin: No rash, No itch, No new/changing skin lesions, No color change, No bleeding Physical Exam 2 Vital Signs (Past 24 Hours): Last Vital Signs Temp 36.4 C L 09/16/18 11:52 Pulse 77 09/16/18 11:52 Resp 20 09/16/18 11:52 BP 141/76 H 09/16/18 11:52 Pulse Ox 96 09/16/18 11:52 Physical Exam: General Appearance: WD/WN, mild weak and pale, no apparent distress, Eyes: normal inspection, PERRL, EOMI, sclerae normal ENT: normal ENT inspection, hearing grossly normal, pharynx normal Neck: supple, no adenopathy, thyroid normal, no JVD, no carotid bruits, trachea midline Respiratory/Chest: chest non-tender, normal breath sounds no accessory muscle use, breath sounds, rales, no wheezing Cardiovascular: regular rate, rhythm, no JVD, no murmur Abdomen: normal bowel sounds, non tender, soft, no organomegaly, Extremities: normal range of motion, non-tender, normal inspection, no pedal edema, no calf tenderness, normal capillary refill , pelvis stable, joint has no limited range of motion, capillary refill is normal, no cyanosis clubbing Neurologic/Psychiatric: cardiovascular or nurse II-XII nml as tested, no motor/sensory deficits, alert, normal mood/affect, oriented x 3 Skin: normal color, warm/dry, no rash Lymphatic: no adenopathy Results & Data Laboratory Results Laboratory Results - last 24 hr 09/15/18 09/15/18 09/15/18 11:33 11:33 11:33 WBC RBC Hgb Hct MCV MCH MCHC RDW Std Deviation RDW Coeff of Chalino Plt Count MPV Immature Gran % (Auto) Neut % (Auto) Lymph % (Auto) Wharton % (Auto) Eos % (Auto) Baso % (Auto) Immature Gran # (Auto) Neut # (Auto) Lymph # (Auto) Wharton # (Auto) Eos # (Auto) Baso # (Auto) PT INR Sodium Potassium Chloride Carbon Dioxide Anion Gap BUN Creatinine Est Cr Clr Drug Dosing Est GFR ( Amer) Est GFR (Non-Af Amer) BUN/Creatinine Ratio Glucose POC Glucose Estimat Average Glucose 134 Hemoglobin A1c 6.3 H Calcium Phosphorus Magnesium Iron 26 L TIBC 237 L Total Bilirubin AST ALT Alkaline Phosphatase Total Protein Albumin Globulin Albumin/Globulin Ratio Vitamin B12 824 09/15/18 09/15/18 09/16/18 16:31 20:37 05:36 WBC 9.50 RBC 3.52 L Hgb 10.4 L Hct 31.8 L MCV 90.3 MCH 29.5 MCHC 32.7 RDW Std Deviation 47.2 H RDW Coeff of Chalino 14.1 Plt Count 191 MPV 9.1 Immature Gran % (Auto) 0.2 Neut % (Auto) 67.9 Lymph % (Auto) 19.7 Wharton % (Auto) 9.4 Eos % (Auto) 2.7 Baso % (Auto) 0.1 Immature Gran # (Auto) 0.02 Neut # (Auto) 6.45 Lymph # (Auto) 1.87 Wharton # (Auto) 0.89 H Eos # (Auto) 0.26 Baso # (Auto) 0.01 PT INR Sodium Potassium Chloride Carbon Dioxide Anion Gap BUN Creatinine Est Cr Clr Drug Dosing Est GFR ( Amer) Est GFR (Non-Af Amer) BUN/Creatinine Ratio Glucose POC Glucose 123 H 185 H Estimat Average Glucose Hemoglobin A1c Calcium Phosphorus Magnesium Iron TIBC Total Bilirubin AST ALT Alkaline Phosphatase Total Protein Albumin Globulin Albumin/Globulin Ratio Vitamin B12 09/16/18 09/16/18 09/16/18 05:36 05:36 07:33 WBC RBC Hgb Hct MCV MCH MCHC RDW Std Deviation RDW Coeff of Chalino Plt Count MPV Immature Gran % (Auto) Neut % (Auto) Lymph % (Auto) Wharton % (Auto) Eos % (Auto) Baso % (Auto) Immature Gran # (Auto) Neut # (Auto) Lymph # (Auto) Wharton # (Auto) Eos # (Auto) Baso # (Auto) PT 10.9 INR 1.1 Sodium 131 L Potassium 4.7 D Chloride 97 L Carbon Dioxide 28 Anion Gap 6.0 BUN 14 Creatinine 0.95 Est Cr Clr Drug Dosing 60.0 Est GFR ( Amer) 66.5 Est GFR (Non-Af Amer) 57.4 BUN/Creatinine Ratio 14.9 Glucose 135 H POC Glucose 122 H Estimat Average Glucose Hemoglobin A1c Calcium 8.6 Phosphorus 3.6 Magnesium 1.9 Iron TIBC Total Bilirubin 0.3 AST 15 ALT 25 Alkaline Phosphatase 68 Total Protein 6.8 Albumin 2.8 L Globulin 4.0 Albumin/Globulin Ratio 0.7 L Vitamin B12 09/16/18 11:51 WBC RBC Hgb Hct MCV MCH MCHC RDW Std Deviation RDW Coeff of Chalino Plt Count MPV Immature Gran % (Auto) Neut % (Auto) Lymph % (Auto) Wharton % (Auto) Eos % (Auto) Baso % (Auto) Immature Gran # (Auto) Neut # (Auto) Lymph # (Auto) Wharton # (Auto) Eos # (Auto) Baso # (Auto) PT INR Sodium Potassium Chloride Carbon Dioxide Anion Gap BUN Creatinine Est Cr Clr Drug Dosing Est GFR ( Amer) Est GFR (Non-Af Amer) BUN/Creatinine Ratio Glucose POC Glucose 173 H Estimat Average Glucose Hemoglobin A1c Calcium Phosphorus Magnesium Iron TIBC Total Bilirubin AST ALT Alkaline Phosphatase Total Protein Albumin Globulin Albumin/Globulin Ratio Vitamin B12 Microbiology 09/14/18 08:00 Urine,Clean Catch Urine Culture - Final Escherichia coli 09/14/18 08:15 Blood Blood Culture - Preliminary Escherichia coli 09/14/18 08:17 Blood Blood Culture - Preliminary Escherichia coli _ (1) Sepsis Sepsis type: (2) UTI (urinary tract infection) Encounter type: Hematuria presence: Indwelling urinary catheter type: Urinary tract infection type:
[2018-09-16] MEDS: cefTRIAXone SODIUM 1,000 MG in DEXTROSE 5% 50 ML IV SCH (13:03)
[2018-09-16] MEDS: ARTIFICIAL TEARS OP SCH (20:00)
[2018-09-16] MEDS: METHENAMINE HIPPURATE 1 GM TAB PO SCH (20:01)
[2018-09-16] MEDS: AMITRIPTYLINE HCL 100 MG TAB PO SCH (20:01)
[2018-09-16] MEDS: DONEPEZIL HCL 5 MG TAB PO SCH (20:02)
[2018-09-16] MEDS: TRAZODONE HCL 100 MG TAB PO SCH (20:03)
[2018-09-16] MEDS: MONTELUKAST SODIUM 10 MG TABLET PO SCH (20:04)
[2018-09-16] MEDS: LORazepam 0.5 MG TAB PO SCH (20:08)
[2018-09-17] MEDS: LEVALBUTEROL HCL 1.25 MG/3 ML NEB NEB SCH ×4 (02:00→20:38)
[2018-09-17 05:58] LABS: Basophils # (auto) 0.02 K/uL (0-0.2); Basophils % (auto) 0.3 %; Eosinophils # (auto) 0.31 K/uL (0-0.5); Eosinophils % (auto) 3.9 %; Hematocrit (blood only) 31.6 % (37-47); Hemoglobin 10.5 g/dL (12.0-16.0); Immature Granulocytes # (auto) 0.03 K/uL (0.00-0.02); Immature Granulocytes % (auto) 0.4 %; Lymphocytes # (auto) 1.81 K/uL (1.2-3.4); Lymphocytes % (auto) 23.1 %; Mean Corpuscular Hgb Conc 33.2 g/dL (32-36); Mean Corpuscular Volume 89.5 fL (80-100); Mean Platelet Volume 9.2 fL (7.4-10.4); Monocytes # (auto) 0.63 K/uL (0.11-0.59); Neutrophils # (auto) 5.05 K/uL (1.4-6.5); Neutrophils % (auto) 64.3 %; Platelet Count 194 K/uL (130-400); RDW Coefficient of Variation 14.1 % (11.5-14.5); RDW Standard Deviation 46.3 fL (36.4-46.3); Red Blood Count 3.53 M/uL (4.2-5.4); White Blood Count 7.85 K/uL (4.8-10.8)
[2018-09-17 06:11] LABS: INR 1.1 (0.9-1.1); Prothrombin Time 10.7 Seconds (9.0-12.0)
[2018-09-17 06:31] LABS: Albumin Level 2.9 gm/dl (3.4-5.0); BUN Creatinine Ratio 15.6 (10-20); Creatinine Clr Calc Pharmacy 63.1 ml/min; Est GFR (Non-African American) 60.4; Magnesium 1.8 mg/dl (1.8-2.4); Potassium 4.8 mmol/L (3.5-5.1)
[2018-09-17 06:38] LABS: Albumin Globulin Ratio 0.8 (0.9-2); Bilirubin,Total 0.3 mg/dl (0.2-1); Globulin 3.8 gm/dl (2.5-4.0); Phosphorus 4.7 mg/dl (2.5-4.9); Total Protein 6.7 gm/dl (6.4-8.2)
[2018-09-17] MEDS: LEVOTHYROXINE SODIUM 125 MCG TABLET PO SCH (06:39)
[2018-09-17] MEDS: PANTOprazole 40 MG TAB PO SCH ×2 (08:01→15:56)
[2018-09-17] MEDS: MULTIVITAMIN TAB PO SCH (08:02)
[2018-09-17] MEDS: guaiFENesin 600 MG TABCR PO SCH ×2 (08:02→21:27)
[2018-09-17] MEDS: GLUCOSAMINE SULFATE 500 MG CAP PO SCH (08:03)
[2018-09-17] MEDS: GABAPENTIN 300 MG CAP PO SCH ×3 (08:04→15:59)
[2018-09-17] MEDS: ENOXAPARIN INJ 40 MG/0.4 ML SYR SQ SCH (08:04)
[2018-09-17] MEDS: CLOPIDOGREL BISULFATE 75 MG TAB PO SCH (08:04)
[2018-09-17] MEDS: PSYLLIUM 58.6% POWDER PACKET PO SCH ×2 (08:06→15:58)
[2018-09-17] MEDS: SERTRALINE HCL 50 MG TABLET PO SCH (08:06)
[2018-09-17] MEDS: POTASSIUM CHLORIDE 20 MEQ TABCR PO SCH ×2 (08:06→15:57)
[2018-09-17] MEDS: MIRABEGRON ER 25 MG TAB PO SCH (08:07)
[2018-09-17] MEDS: SPIRONOLACTONE 25 MG TAB PO SCH (08:08)
[2018-09-17] MEDS: DULOXETINE HCL 60 MG CAP PO SCH ×2 (08:08→12:59)
[2018-09-17] MEDS: VITAMIN B COMPLEX TAB PO SCH (08:08)
[2018-09-17] MEDS: CALCIUM 600MG + VIT D 400 IU TAB PO SCH ×2 (08:08→15:58)
[2018-09-17] MEDS: TAMSULOSIN HCL 0.4 MG CAP PO SCH (08:09)
[2018-09-17] MEDS: ASPIRIN 81 MG ECTAB PO SCH (08:09)
[2018-09-17] MEDS: FERROUS SULFATE 325 MG TAB PO SCH (08:10)
[2018-09-17] MEDS: [UNRECOGNIZED DRUG - OTHER] OP SCH ×2 (08:13→14:38)
[2018-09-17] MEDS: SYSTANE ULTRA OP SCH ×2 (08:13→14:38)
[2018-09-17] MEDS: cycloSPORINE (RESTASIS) OP SCH (08:13)
[2018-09-17] MEDS: ATENOLOL 50 MG TABLET PO SCH (08:14)
[2018-09-17] MEDS: BENZONATATE 100 MG CAPSULE PO SCH ×3 (08:18→21:30)
[2018-09-17] MEDS: INSULIN ASPART 100 UNITS/ML 3 ML PEN SC SCH ×4 (08:22→20:32)
[2018-09-17] MEDS ORDERED: ONDANSETRON HCL 6 MG in DEXTROSE 5% 50 ML IV PRN (10:25)
[2018-09-17] MEDS: cefTRIAXone SODIUM 1,000 MG in DEXTROSE 5% 50 ML IV SCH (12:56)
--- NOTE | 2018-09-17 14:06 | Hospitalist Progress Note ---
Date of Service September 17, 2018 Assessment & Plan (1) Chronic interstitial cystitis: (2) Sepsis: (3) Confusion: (4) UTI (urinary tract infection): (5) Tachycardia: (6) Diabetes: (7) Diabetic peripheral neuropathy associated with type 2 diabetes mellitus: (8) CAD (coronary artery disease): (9) Diastolic CHF, chronic: (10) Hyponatremia: (11) YARI (obstructive sleep apnea): - Continue cpap Hs (12) Morbid obesity with BMI of 50.0-59.9, adult: (13) Anemia, iron deficiency: (14) Osteoporosis: (15) GERD (gastroesophageal reflux disease): (16) TIA (transient ischemic attack): (17) DVT prophylaxis: 78-year-old white female admitted to hospital because of sepsis and possible metabolic encephalopathy associated with confusion on September 14, 2018, E. coli UTI and E. coli bacteremia, stable improving Sepsis with ecoli bacteremia 2 out of 2 in blood culture e coli UTI, chronic interstitial cystitis: Possible metabolic encephalopathy with confusion upon admission: Has been on Zosyn , vanco, switch to Rocephin IV per sensitivity, today's day 3 of antibiotic, Repeated blood culture after 1 day of antibiotic, repeated blood culture sent yesterday, Tachycardia on admission, likely from sepsis, resolved, Prediabetes with A1c 6.1, Diabetic peripheral neuropathy associated with type 2 diabetes mellitus: On diet control at home, hx of CAD Continue asa 81 mg, atenolol 50 mg daily, plavix 75 mg PO daily Chronic diastolic CHF, Does not appear to be in acute exacerbation, improved output, Possible chronic hyponatremia: Stable Obstructive sleep apnea, morbid obesity, Chronic anemia, possible from chronic disease per iron testing, Osteoporosis, GERD, history of TIA, stable continue current medication, DVT prophylaxis: ordered lovenox subq , increase activity PTOT, out of bed, continue current care, follow-up blood culture results of the repeated, possible need totally 14 days of antibiotics for her E. coli bacteremia, today' s 3 out of 14, possible okay to discharge back to [facility] tomorrow Subjective Sitting in chair, mild nausea, no other complaint, report feeling better, no more confused, awake alert orientated conversational , Occasional dry cough, no difficult breathing, Review of Systems Constitutional: Positive weakness, or fatigue Respiratory: Occasional cough, sputum, no wheezing, or dyspnea on exertion Cardiac: No chest pain, No orthopnea, Abdomen: No pain, No nausea, No vomiting, No diarrhea, Musculoskeletal: No joint pain, No muscle pain, No swelling, No calf pain, No problem reported : No dysuria, No urinary frequency, No incontinence, Neurologic: No paralysis, No weakness, No numbness/tingling, No vertigo, No balance problems Psychiatric: No depression symptoms, No anhedonism, No anxiety, Heme: No abnormal bleeding/bruising, No clotting problems, No swollen lymph nodes, No night sweats Skin: No rash, No itch, No new/changing skin lesions, No color change, No bleeding Physical Exam 2 Vital Signs (Past 24 Hours): Last Vital Signs Temp 36.4 C L 09/17/18 11:49 Pulse 77 09/17/18 11:49 Resp 20 09/17/18 11:49 BP 125/81 09/17/18 11:49 Pulse Ox 94 09/17/18 11:49 Physical Exam: General Appearance: WD/WN, mild weak and pale, no apparent distress, Eyes: normal inspection, PERRL, EOMI, sclerae normal ENT: normal ENT inspection, hearing grossly normal, pharynx normal Neck: supple, no adenopathy, thyroid normal, no JVD, no carotid bruits, trachea midline Respiratory/Chest: chest non-tender, normal breath sounds no accessory muscle use, decreased breath sounds, no rales, right lung has occasional wheezing Cardiovascular: regular rate, rhythm, no JVD, no murmur Abdomen: normal bowel sounds, non tender, soft, no organomegaly, Extremities: normal range of motion, non-tender, normal inspection, no pedal edema, no calf tenderness, normal capillary refill , pelvis stable, joint has no limited range of motion, capillary refill is normal, no cyanosis clubbing Neurologic/Psychiatric: 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, no motor/sensory deficits, alert, normal mood/affect, oriented x 3 Skin: normal color, warm/dry, no rash Lymphatic: no adenopathy Results & Data Laboratory Results Laboratory Results - last 24 hr 09/15/18 09/16/18 09/16/18 11:33 16:23 20:33 WBC RBC Hgb Hct MCV MCH MCHC RDW Std Deviation RDW Coeff of Chalino Plt Count MPV Immature Gran % (Auto) Neut % (Auto) Lymph % (Auto) [place] % (Auto) Eos % (Auto) Baso % (Auto) Immature Gran # (Auto) Neut # (Auto) Lymph # (Auto) [place] # (Auto) Eos # (Auto) Baso # (Auto) PT INR Sodium Potassium Chloride Carbon Dioxide Anion Gap BUN Creatinine Est Cr Clr Drug Dosing Est GFR ( Amer) Est GFR (Non-Af Amer) BUN/Creatinine Ratio Glucose POC Glucose 94 143 H Calcium Phosphorus Magnesium Total Bilirubin AST ALT Alkaline Phosphatase Total Protein Albumin Globulin Albumin/Globulin Ratio RBC Folate >1000 09/17/18 09/17/18 09/17/18 05:36 05:36 05:36 WBC 7.85 RBC 3.53 L Hgb 10.5 L Hct 31.6 L MCV 89.5 MCH 29.7 MCHC 33.2 RDW Std Deviation 46.3 RDW Coeff of Chalino 14.1 Plt Count 194 MPV 9.2 Immature Gran % (Auto) 0.4 Neut % (Auto) 64.3 Lymph % (Auto) 23.1 [place] % (Auto) 8.0 Eos % (Auto) 3.9 Baso % (Auto) 0.3 Immature Gran # (Auto) 0.03 H Neut # (Auto) 5.05 Lymph # (Auto) 1.81 [place] # (Auto) 0.63 H Eos # (Auto) 0.31 Baso # (Auto) 0.02 PT 10.7 INR 1.1 Sodium 131 L Potassium 4.8 Chloride 97 L Carbon Dioxide 29 Anion Gap 5.0 BUN 14 Creatinine 0.91 Est Cr Clr Drug Dosing 63.1 Est GFR ( Amer) 70.0 Est GFR (Non-Af Amer) 60.4 BUN/Creatinine Ratio 15.6 Glucose 139 H POC Glucose Calcium 9.0 Phosphorus 4.7 D Magnesium 1.8 Total Bilirubin 0.3 AST 13 L ALT 23 Alkaline Phosphatase 69 Total Protein 6.7 Albumin 2.9 L Globulin 3.8 Albumin/Globulin Ratio 0.8 L RBC Folate 09/17/18 09/17/18 07:43 11:39 WBC RBC Hgb Hct MCV MCH MCHC RDW Std Deviation RDW Coeff of Chalino Plt Count MPV Immature Gran % (Auto) Neut % (Auto) Lymph % (Auto) [place] % (Auto) Eos % (Auto) Baso % (Auto) Immature Gran # (Auto) Neut # (Auto) Lymph # (Auto) [place] # (Auto) Eos # (Auto) Baso # (Auto) PT INR Sodium Potassium Chloride Carbon Dioxide Anion Gap BUN Creatinine Est Cr Clr Drug Dosing Est GFR ( Amer) Est GFR (Non-Af Amer) BUN/Creatinine Ratio Glucose POC Glucose 122 H 173 H Calcium Phosphorus Magnesium Total Bilirubin AST ALT Alkaline Phosphatase Total Protein Albumin Globulin Albumin/Globulin Ratio RBC Folate _ (1) Sepsis Sepsis type: (2) UTI (urinary tract infection) Encounter type: Hematuria presence: Indwelling urinary catheter type: Urinary tract infection type:
[2018-09-17] MEDS: TRAMADOL HCL 50 MG TABLET PO PRN (16:04)
[2018-09-17] MEDS ORDERED: MICONAZOLE NITRATE POWDER 43 GM EXT PRN (16:32)
[2018-09-17] MEDS: DONEPEZIL HCL 5 MG TAB PO SCH (21:26)
[2018-09-17] MEDS: AMITRIPTYLINE HCL 100 MG TAB PO SCH (21:28)
[2018-09-17] MEDS: TRAZODONE HCL 100 MG TAB PO SCH (21:28)
[2018-09-17] MEDS: MONTELUKAST SODIUM 10 MG TABLET PO SCH (21:29)
[2018-09-17] MEDS: METHENAMINE HIPPURATE 1 GM TAB PO SCH (21:29)
[2018-09-17] MEDS: ARTIFICIAL TEARS OP SCH (21:34)
[2018-09-17] MEDS: LORazepam 0.5 MG TAB PO SCH (21:36)
[2018-09-18] MEDS: LEVALBUTEROL HCL 1.25 MG/3 ML NEB NEB SCH ×2 (02:07→07:02)
[2018-09-18] MEDS: LEVOTHYROXINE SODIUM 125 MCG TABLET PO SCH (06:12)
[2018-09-18] MEDS: guaiFENesin 600 MG TABCR PO SCH (08:50)
[2018-09-18] MEDS: POTASSIUM CHLORIDE 20 MEQ TABCR PO SCH (08:50)
[2018-09-18] MEDS: MULTIVITAMIN TAB PO SCH (08:50)
[2018-09-18] MEDS: DULOXETINE HCL 60 MG CAP PO SCH ×2 (08:51→11:27)
[2018-09-18] MEDS: CLOPIDOGREL BISULFATE 75 MG TAB PO SCH (08:51)
[2018-09-18] MEDS: GABAPENTIN 300 MG CAP PO SCH ×2 (08:51→12:14)
[2018-09-18] MEDS: ATENOLOL 50 MG TABLET PO SCH (08:51)
[2018-09-18] MEDS: PANTOprazole 40 MG TAB PO SCH (08:52)
[2018-09-18] MEDS: GLUCOSAMINE SULFATE 500 MG CAP PO SCH (08:52)
[2018-09-18] MEDS: VITAMIN B COMPLEX TAB PO SCH (08:52)
[2018-09-18] MEDS: ENOXAPARIN INJ 40 MG/0.4 ML SYR SQ SCH (08:53)
[2018-09-18] MEDS: PSYLLIUM 58.6% POWDER PACKET PO SCH (08:53)
[2018-09-18] MEDS: CALCIUM 600MG + VIT D 400 IU TAB PO SCH (08:53)
[2018-09-18] MEDS: SERTRALINE HCL 50 MG TABLET PO SCH (08:54)
[2018-09-18] MEDS: BENZONATATE 100 MG CAPSULE PO SCH ×2 (08:55→14:46)
[2018-09-18] MEDS: SPIRONOLACTONE 25 MG TAB PO SCH (08:55)
[2018-09-18] MEDS: FERROUS SULFATE 325 MG TAB PO SCH (08:56)
[2018-09-18] MEDS: MIRABEGRON ER 25 MG TAB PO SCH (08:56)
[2018-09-18] MEDS: ASPIRIN 81 MG ECTAB PO SCH (08:56)
[2018-09-18] MEDS: TAMSULOSIN HCL 0.4 MG CAP PO SCH (08:56)
[2018-09-18] MEDS: INSULIN ASPART 100 UNITS/ML 3 ML PEN SC SCH ×2 (08:57→12:15)
[2018-09-18] MEDS ORDERED: metOLazone 2.5 MG TABLET PO SCH (09:00)
[2018-09-18] MEDS: cefTRIAXone SODIUM 1,000 MG in DEXTROSE 5% 50 ML IV SCH (12:14)
--- NOTE | 2018-09-18 14:52 | Discharge Summary ---
Date of Service September 18, 2018 Admission HPI Per Admitting Provider This is a 78 Yo F with PMHx of DM II, peripheral neuropathy, history of TIA, history of pulmonary embolism in 2010 not on anticoagulation, chronic interstitial cystitis likely due to incontinence and vaginal prolapse,, iron deficiency anemia, hyponatremia, HTN, chronic diastolic CHF, nonobstructive CAD , hypothyroidism, GERD, IBS, depression, osteoporosis, memory loss, asthma, COPD , YARI on CPAP. The patient presents with increased confusion from [facility]. Admission Exam Per Admitting Provider General: awake, alert, no apparent distress, + morbidly obese with BMI of Head: Normocephalic, atraumatic ENT: PERRL, EOMI, no pharyngeal exudate, mucous membranes moist Chest: Clear to auscultation, on room air, no wheezing rales or rhonchi. O2 sats at 95% on RA. Cardiac: Regular rate and rhythm, no murmur, no JVD, normal peripheral pulses, good capillary refill Abdominal: NABS x 4 quadrants, soft, generalized tenderness to palpation, no rebound, guarding or tenderness. Extremities: Normal inspection, no peripheral edema or erythema, calfs nontender to palpation Psych: Normal mood and affect Neuro: AAO x 3, strength intact bilaterally and related 5/5, no motor deficits, speech is clear, no peripheral sensory deficits Principal Diagnosis E coli bacteremia due to UTI Discharge Exam Constitutional WD/WN, vitals as above Eyes PERRL, conjunctivae normal, anicteric sclerae ENMT external ear and nose normal, oropharynx normal Neck trachea midline, no thyromegaly Respiratory normal respiratory effort, lungs clear to auscultation Cardiovascular RRR, no murmur, no edema Gastrointestinal (Abdomen) normal bowel sounds, soft, nontender, no hepatosplenomegaly Musculoskeletal no cyanosis or clubbing, extremities motor strength 5/5 Skin no rashes, warm and dry Neurologic patellar DTR's 2+ bilat, sensation intact and PERRL, EOMI, accommodation nl, no face palsy, no dysarthria Psychiatric A+Ox3, euthymic affect Lymphatic no cervical or axillary lymphadenopathy Discharge Data Allergies Allergy/AdvReac Type Severity Reaction Status Date / Time KODAK Inhibitors Allergy Unknown ? Verified 09/14/18 09:37 Consultations 09/14/18 08:54 ED Decision to Admit Stat 09/14/18 12:22 Consult Case Management - Discharge Planning Routine Ordered Studies 09/14/18 07:39 CT head/brain wo con Stat Hospital Course (1) Chronic interstitial cystitis: h/o UTI, urine and blood culture with sensitive E coli treat for 12 more days on discharge (2) Sepsis: sepsis resolved, vitals stable, WBC normal blood cultures grew E coli repeat cultures on 09/16 negative for growth needs 14 days of abx since 09/16 complete 12 more days of Keflex (3) Confusion: metabolic encephalopathy due to sepsis resolved with treatment (4) UTI (urinary tract infection): see above urine culture with E coli, granger sensitive treated initially with Zosyn, tapered to Rocephin, now transition to Keflex (5) Tachycardia: sinus tachycardia, likely due to anxiety HR in normal range (6) Diabetes: - Prediabetes - Last A1C was 6.1 in March 2018, no need to recheck. - ISS with accuchecks (7) Diabetic peripheral neuropathy associated with type 2 diabetes mellitus: - Stable (8) CAD (coronary artery disease): - Continue asa 81 mg, atenolol 50 mg daily, plavix 75 mg PO daily (9) Diastolic CHF, chronic: - Does not appear to be in acute exacerbation, patient appears to be euvolemic. - Daily weights, strict I's and O's - Heart healthy diet (10) Hyponatremia: - Na 127 upon arrival to the ER, given small amount of fluids in the ER. - appears to be chronically hyponatremic, mental status stable (11) YARI (obstructive sleep apnea): - Continue cpap Hs (12) Morbid obesity with BMI of 50.0-59.9, adult: - DIet and exercise to be encouraged prior to discharge (13) Anemia, iron deficiency: -Chronic hemoglobin is stable at 11.0 (14) Osteoporosis: (15) GERD (gastroesophageal reflux disease): - stable (16) TIA (transient ischemic attack): - Happened several years ago where pt was repeating words, does not appear to be TIA at this time. -Stable Total Time Total Time Spent Total Time Spent (In Minutes): 35 minutes Total Time Includes: Examination of the Patient, Discharge Planning, Medication Reconciliation and Other (communication with patient's daughter at the bedside) Discharge Plan Discharge Items Patient Disposition: Personal [facility] Reason For Visit: ANEMIC Discharge Diagnosis: E coli UTI with bacteremia, sepsis Condition: Good Discharge Goals: Improve disease control and Improve function Activity: Resume your previous activity Non-emergency contact: Primary Care Provider Call non-emergency contact if: you have any medication questions, your symptoms worsen, your pain is not controlled and you have a fever Diet: Carb Consistent or DM2 and Heart Healthy Addtl Provider Instructions: Medications: - KEFLEX: 500mg twice a day for 12 more days, next dose is due tomorrow evening E coli UTI with bacteremia, sepsis treated with broad spectrum antibiotics initially blood culture grew E coli, granger sensitive can be treated with Keflex 500mg twice a day last day of treatment would be 09/30/18 labs and vitals stable should have PT/OT after discharge FOLLOW UP - physician at [facility] in one week Prescriptions: New cephalexin [Keflex] 500 mg capsule 500 mg PO BID 12 Days Qty: 24 RF: 0 Continue donepezil 5 mg Tablet 5 mg PO HS RF: 0 amitriptyline 100 mg Tablet 100 mg PO HS RF: 0 lorazepam [Ativan] 0.5 mg Tablet 0.5 mg PO HS RF: 0 sertraline 25 mg Tablet 25 mg PO QAM RF: 0 tramadol 50 mg Tablet 50 mg PO Q6H PRN (Reason: Pain) RF: 0 duloxetine 60 mg Capsule,Delayed Release(Dr/Ec) 60 mg PO UD RF: 0 dextromethorphan polistirex [Delsym 12 hour] 30 mg/5 mL Suspension,Extended Rel 12 Hr 10 ml PO Q12H PRN (Reason: Cough) RF: 0 nystatin 100,000 unit/gram Powder 1 applic TOPICAL BID PRN (Reason: Rash) RF: 0 Reguloid 1 tbsp PO BIDM RF: 0 magnesium hydroxide [Milk of Magnesia] 400 mg/5 mL Suspension 2 - 4 tbsp PO DAILY PRN (Reason: Constipation) RF: 0 polyethylene glycol 3350 [Miralax] 17 gram Powder In Packet 17 g PO DAILY PRN (Reason: Constipation) RF: 0 acetaminophen [Tylenol Extra Strength] 500 mg Tablet 1,000 mg PO Q8 PRN (Reason: Pain) RF: 0 cyclosporine [Restasis] 0.05 % Dropperette 1 drp OPHTHALMIC (EYE) BID RF: 0 Systane Ultra (PF) 1 ophthalmic insert EXT TIDM RF: [address] pantopraz[address] For Susp In Packet 40 mg PO BIDM RF: 0 guaifenesin [Mucinex] 600 mg Tablet Extended Release 12hr 600 mg PO Q12H PRN (Reason: Congestion) RF: 0 spironolactone 25 mg Tablet 25 mg PO QAM RF: 0 atenolol 50 mg Tablet 50 mg PO QAM RF: 0 loperamide 2 mg Capsule 1 mg PO DIRECTED PRN (Reason: Diarrhea) RF: 0 methenamine hippurate 1 gram Tablet 1 g PO HS RF: 0 tamsulosin [Flomax] 0.4 mg Capsule 0.4 mg PO QAM RF: 0 potassium chloride 20 mEq Tablet,Er Particles/Crystals 60 meq PO BIDM RF: 0 mirabegron [Myrbetriq] 50 mg Tablet Extended Release 24 Hr 50 mg PO QAM RF: 0 levothyroxine 125 mcg Tablet 250 mcg PO QAM RF: 0 metolazone 2.5 mg Tablet 2.5 mg PO DIRECTED PRN (Reason: Edema) RF: 0 vitamin B complex Tablet 1 tab PO QAM RF: 0 ranitidine HCl 150 mg Tablet 150 mg PO BIDM RF: 0 trazodone 100 mg Tablet 200 mg PO HS RF: 0 clopidogrel [Plavix] 75 mg Tablet 75 mg PO QAM RF: 0 mometasone [Nasonex] 50 mcg/actuation [place],Non-Aerosol 1 spray INTRANASAL BID RF: 0 montelukast [Singulair] 10 mg Tablet 10 mg PO HS RF: 0 Act Dry Mouth Lozenges 1 mauricio PO HS PRN (Reason: Dry Mouth) RF: 0 multivitamin Tablet 1 tab PO QAM RF: 0 metolazone 2.5 mg tablet 2.5 mg PO DAILY PRN (Reason: Weight Gain) RF: 0 ketoconazole [Nizoral] 2 % Shampoo 1 applic topical WK RF: 0 glucosamine sulfate [Glucosamine] 500 mg Tablet 1,500 mg PO QAM RF: 0 aspirin 81 mg Tablet,Delayed Release (Dr/Ec) 81 mg PO QAM RF: 0 ferrous sulfate [iron] 325 mg (65 mg iron) Tablet 325 mg PO QAM RF: 0 conjugated estrogens 0.625 mg/gram cream 1 applic topical 2XWK RF: 0 gabapentin 300 mg capsule 300 mg PO TIDM RF: 0 albuterol sulfate [ProAir HFA] 90 mcg/actuation Hfa Aerosol Inhaler 2 puff INHALATION QID PRN (Reason: Shortness Of Breath Or Wheezing) RF: 0 peg 400-propylene glycol (PF) [Systane (PF)] 0.4-0.3 % Dropperette 1 drp OPHTHALMIC (EYE) HS RF: 0 calcium carbonate-vitamin D3 [Caltrate 600 + D] 600 mg (1,500 mg)-800 unit Tablet,Chewable 1 tab PO BIDM RF: 0 ipratropium bromide [Atrovent HFA] 17 mcg/actuation Hfa Aerosol Inhaler 2 puff INHALATION QID PRN (Reason: Shortness Of Breath Or Wheezing) RF: 0 Stand-Alone Forms: [facility] Discharge Orders: Discharge Order (Routine); Ordered 09/18/18 Ordered By: Adarsh Rivero Admission Data Admit Date/Time: 09/14/18 10:51 Attending Provider: Adarsh Rivero Admit Provider: Mey Shen Primary Care Provider: Jame Ruth V Other Providers: Mey Shen ; Eric Davis Service: Telemetry Other Interventions: Discharge Summary Assessment (RN) Last Done: 09/18/18 14:55 DC Date/Time DO NOT enter until pt leaves facility: 09/18/18 16:10
[2018-09-20] MEDS ORDERED: PREMARIN VAG CRM 14 APPLN/30 GM TUBE PV SCH (21:00)
--- NOTE | 2018-10-18 09:31 | Emergency Department Note ---
ED Visit Note Addendum to ED visit on 09/14/18: Critical care time-30 min Due to the patient's sepsis, confusion and hypotension, I have spent 30 min of critical care time. She was also given IV fluid boluses and IV antibiotics. .
== END 2018-09-18 16:10 | disposition home or self-care (01) | DRG 871 ==
LOC: ED 07:07 → 2N 10:51 → SUATTDRO 10:51 → 2N 11:47

== ENCOUNTER 2018-12-11 22:53 | Inpatient (IN) ==
[2018-12-11] MEDS ORDERED: ACETAMINOPHEN 1,000 MG/100 ML VIAL IV STA (23:18)
[2018-12-11] MEDS ORDERED: SODIUM CHLORIDE 0.9% 1000ML 1,000 ML IV ONE (23:18)
[2018-12-11] MEDS ORDERED: PIPERACILLIN/TAZOBACTAM 4.5 GM/120 ML BAG IV ONE (23:21)
[2018-12-11] MEDS ORDERED: VANCOMYCIN CONSULT ACTIVE PRN (23:21)
[2018-12-11] MEDS ORDERED: PIPERACILL/TAZOBAC CONSULT ACTIVE PRN (23:21)
[2018-12-11] MEDS ORDERED: VANCOMYCIN HCL 2,500 MG in SODIUM CHLORIDE 0.9% 500 ML IV ONE (23:21)
--- NOTE | 2018-12-11 23:46 | Emergency Department Note ---
ED Visit Note I did evaluate and examine this patient myself. I did guide management for the patient. I agree with the PA's assessment as discussed. Please see the PAs dictation for further details. I did independently review the x-rays, CT scan, twelve-lead EKG and blood work. The patient does have a cellulitis to the left lower extremity. CTs are negative for any acute abnormality. The patient was given IV Rocephin and Vanco. She will be hospitalized for further care and evaluation. .
[2018-12-12 00:32] LABS: Hematocrit (blood only) 32.7 % (37-47); Hemoglobin 11.3 g/dL (12.0-16.0); Mean Corpuscular Hgb Conc 34.6 g/dL (32-36); Mean Corpuscular Volume 86.3 fL (80-100); Platelet Count 199 K/uL (130-400); RDW Coefficient of Variation 14.3 % (11.5-14.5); RDW Standard Deviation 44.6 fL (36.4-46.3); Red Blood Count 3.79 M/uL (4.2-5.4); White Blood Count 24.52 K/uL (4.8-10.8)
[2018-12-12 00:40] LABS: Influenza A virus by PCR Neg for Influ A (Neg); Influenza B virus by PCR Neg for Influ B (Neg)
[2018-12-12 00:44] LABS: INR 1.2 (0.9-1.1); Prothrombin Time 11.9 Seconds (9.0-12.0)
[2018-12-12 00:50] LABS: Alanine Aminotransferase 25 U/L (12-78); Albumin Level 3.2 gm/dl (3.4-5.0); Aspartate Aminotransferase 34 U/L (15-37); BUN Creatinine Ratio 10.2 (10-20); Blood Urea Nitrogen 11 mg/dl (7-18); Calcium 8.5 mg/dl (8.5-10.1); Carbon Dioxide 25 mmol/L (21-32); Chloride 92 mmol/L (98-107); Est GFR (African American) 54.5; Glucose 201 mg/dl (70-99); Potassium 4.1 mmol/L (3.5-5.1); Sodium 128 mmol/L (136-145)
[2018-12-12 00:55] LABS: Albumin Globulin Ratio 0.8 (0.9-2); Alkaline Phosphatase 73 U/L (45-117); Bilirubin,Total 0.4 mg/dl (0.2-1); Creatine Kinase 746 U/L (26-192); Total Protein 7.2 gm/dl (6.4-8.2); Troponin I < 0.015 ng/ml (0-0.045)
[2018-12-12 00:59] LABS: Basophils # (auto) 0.02 K/uL (0-0.2); Basophils % (auto) 0.1 %; Immature Granulocytes # (auto) 0.13 K/uL (0.00-0.02); Immature Granulocytes % (auto) 0.5 %; Lymphocytes # (auto) 0.97 K/uL (1.2-3.4); Monocytes # (auto) 1.01 K/uL (0.11-0.59); Monocytes % (auto) 4.1 %; Neutrophils # (auto) 22.39 K/uL (1.4-6.5); Neutrophils % (auto) 91.3 %; RBC Morphology Unremarkable
[2018-12-12 01:00] LABS: Appearance Urine Clear (Clear); Bacteria Urine Automated Negative (Negative); Bilirubin Urine Negative (Negative); Blood Urine 2+ (Negative); Cast Urine Automated 0 /lpf (0-5); Color Urine Yellow; Epithelial Cell Urine Auto 0-5 /lpf (0-5); Glucose Urine UA Trace (Negative); Ketones Urine Negative (Negative); Leukocyte Esterase Urine Negative (Negative); Nitrite Urine Negative (Negative); Protein Urine Negative (Negative); RBC Urine Automated 0-4 /hpf (0-4); Specific Gravity Urine 1.014 (1.000-1.030); Urobilinogen Urine Negative (Negative); pH Urine 7.5 (4.5-7.5)
--- NOTE | 2018-12-12 01:23 | Emergency Department Note ---
History of Present Illness General Chief complaint: Fall Stated complaint: FALL, AMS, FEVER History of Present Illness This 78-year-old presents to the ER complaining of fever, fall, increased confusion Location: Generalized Quality: Confused Severity: Moderate Duration: Today Timing: Today Context: The nurse at the halfway found the patient on the ground and summoned EMS Modifying factors: better with nothing; worse with nothing The nurse noticed a fever today. They did not give any antipyretics. The nurse found the patient on the ground and had vomited and was concerned and called EMS. The patient complains of head and neck pain. Patient has been coughing more. Patient denies chest pain, abdominal pain, localized weakness. Patient states she feels weak and sick. History is also obtained from the daughter. Home Medications Home Medications Medication Instructions Recorded Confirmed Type Myrbetriq 50 mg PO QAM 05/16/18 12/12/18 History Restasis 1 drp OPHTHALMIC (EYE) BID 05/16/18 12/12/18 History acetaminophen [Tylenol Extra 1,000 mg PO Q8 PRN 05/16/18 12/12/18 History Strength] amitriptyline 100 mg PO HS 05/16/18 12/12/18 History atenolol 50 mg PO QAM 05/16/18 12/12/18 History clopidogrel [Plavix] 75 mg PO QAM 05/16/18 12/12/18 History dextromethorphan polistirex 10 ml PO Q12H PRN 05/16/18 12/12/18 History [Delsym 12 hour] donepezil 5 mg PO HS 05/16/18 12/12/18 History duloxetine 60 mg PO BID 05/16/18 12/12/18 History guaifenesin [Mucinex] 600 mg PO Q12H PRN 05/16/18 12/12/18 History levothyroxine 250 mcg PO QAM 05/16/18 12/12/18 History loperamide 1 mg PO DIRECTED PRN MDD 3 per 05/16/18 12/12/18 History day magnesium hydroxide [Milk of 2 - 4 tbsp PO DAILY PRN 05/16/18 12/12/18 History Magnesia] methenamine hippurate 1 g PO HS 05/16/18 12/12/18 History metolazone 2.5 mg PO 2XWK 05/16/18 12/12/18 History mometasone [Nasonex] 1 spray INTRANASAL BID 05/16/18 12/12/18 History montelukast [Singulair] 10 mg PO HS 05/16/18 12/12/18 History nystatin 1 applic TOPICAL BID 05/16/18 12/12/18 History pantoprazole 40 mg PO BIDM 05/16/18 12/12/18 History polyethylene glycol 3350 [Miralax] 17 g PO DAILY PRN 05/16/18 12/12/18 History potassium chloride 60 meq PO BIDM 05/16/18 12/12/18 History ranitidine HCl 150 mg PO BIDM 05/16/18 12/12/18 History sertraline 25 mg PO QAM 05/16/18 12/12/18 History spironolactone 25 mg PO QAM 05/16/18 12/12/18 History tamsulosin [Flomax] 0.4 mg PO QAM 05/16/18 12/12/18 History tramadol 50 mg PO Q6H PRN 05/16/18 12/12/18 History trazodone 200 mg PO HS 05/16/18 12/12/18 History vitamin B complex 1 tab PO QAM 05/16/18 12/12/18 History Atrovent HFA 2 puff INHALATION QID PRN 09/14/18 12/12/18 History Caltrate 600 + D 1 tab PO BIDM 09/14/18 12/12/18 History Systane (PF) 1 drp OPHTHALMIC (EYE) TID 09/14/18 12/12/18 History albuterol sulfate [ProAir HFA] 2 puff INHALATION QID PRN 09/14/18 12/12/18 History aspirin 81 mg PO QAM 09/14/18 12/12/18 History conjugated estrogens 1 applic TOPICAL 3XWK 09/14/18 12/12/18 History ferrous sulfate [iron] 325 mg PO 3XWK 09/14/18 12/12/18 History gabapentin 300 mg PO TIDM 09/14/18 12/12/18 History glucosamine sulfate [Glucosamine] 1,500 mg PO QAM 09/14/18 12/12/18 History ketoconazole [Nizoral] 1 applic TOPICAL DAILY 09/14/18 12/12/18 History metolazone 2.5 mg PO DAILY PRN 09/14/18 12/12/18 History multivitamin 1 tab PO QAM 09/14/18 12/12/18 History artificial tears(hypromellose) 1 drp OPB HS 12/12/18 12/12/18 History [Systane Gel] ketoconazole 1 applic TOPICAL DAILY PRN 12/12/18 12/12/18 History lorazepam 1 mg PO HS 12/12/18 12/12/18 History magnesium sulfate (bulk) [Epsom 1 applic TOPICAL DAILY 12/12/18 12/12/18 History Salt] menthol-zinc oxide [Calmoseptine] 1 applic TOPICAL TID PRN 12/12/18 12/12/18 History nystatin 1 applic TOPICAL BID PRN 12/12/18 12/12/18 History psyllium seed (sugar) [Reguloid] 1 tbsp PO BID 12/12/18 12/12/18 History Allergies Allergy/AdvReac Type Severity Reaction Status Date / Time KODAK Inhibitors Allergy Unknown Unknown Verified 12/12/18 01:47 benson Allergy Unknown Verified 12/12/18 01:47 grass pollen Allergy Unknown Verified 12/12/18 01:47 perfume Allergy Unknown Verified 12/12/18 01:47 Past Med/Surg History Medical History Morbid obesity with BMI of 50.0-59.9, adult YARI (obstructive sleep apnea) Hyponatremia Diastolic CHF, chronic CAD (coronary artery disease) Chronic interstitial cystitis Sepsis (Acute) Confusion (Acute) UTI (urinary tract infection) (Acute) Diabetes (Chronic) TIA (transient ischemic attack) (Resolved) Pulmonary embolism (Resolved) UTI (urinary tract infection) (Resolved) Cardiac valve prolapse (Chronic) Balance disorder Basal pneumonia of both lungs (Acute) Diabetic peripheral neuropathy associated with type 2 diabetes mellitus Foot deformity Foot pain Loss of sensation Family History Other Family history non-contributory Social History Preferred Language: [place] Beliefs That Will Affect Care: None Current Living Situation: Personal Care Facility Current Living Situation Comment: [facility] Feels Safe at Home: Yes Smoking Status: Unknown if ever smoked Hx Alcohol Use: No Hx Substance Use: No Review of Systems All systems reviewed & are unremarkable except as noted in HPI & below Physical Exam Vital Signs Vital Signs - 24 hr 12/11/18 22:50 12/11/18 23:43 12/12/18 00:49 Temperature 38.2 C H 38.8 C H Temperature Source Oral Oral Sepsis Recent Fever Within 48 Hours Yes Sepsis New/Unexplained Change in Mental Status Yes Sepsis Action Taken by Nursing Adv Provider Notified Pulse Rate 105 H Pulse Rate [Right Finger] 102 H Pulse Rhythm [Right Finger] Regular Pulse Strength [Right Finger] Normal Respiratory Rate 26 H 22 Respiratory Effort / Characteristics Non-Labored Spontaneous Respiratory Depth Normal Blood Pressure 108/78 Blood Pressure [Right Arm] 122/61 Blood Pressure Mean 88 Blood Pressure Mean [Right Arm] 81 Pulse Oximetry 94 92 98 Oxygen Delivery Method Nasal Cannula Nasal Cannula Nasal Cannula Oxygen Flow Rate 2 3 12/12/18 01:39 12/12/18 02:20 Temperature 37.6 C H Temperature Source Oral Sepsis Recent Fever Within 48 Hours Sepsis New/Unexplained Change in Mental Status Sepsis Action Taken by Nursing Pulse Rate Pulse Rate [Right Finger] 90 Pulse Rhythm [Right Finger] Regular Pulse Strength [Right Finger] Normal Respiratory Rate 22 Respiratory Effort / Characteristics Non-Labored Spontaneous Respiratory Depth Normal Blood Pressure Blood Pressure [Right Arm] 117/64 Blood Pressure Mean Blood Pressure Mean [Right Arm] 81 Pulse Oximetry 97 Oxygen Delivery Method Room Air Oxygen Flow Rate VITALS: Vitals are noted on the nurse's note and reviewed by myself. Vital signs febrile. GENERAL: Pleasant elderly female, ill-appearing, c-collar placed SKIN: Left lower leg erythematous and edematous concerning for cellulitis, the rest of the skin was without rashes, erythema, edema, or bruising. There is no tenting of the skin. Capillary reflex less than 2 seconds. HEAD: Normocephalic atraumatic. EARS: External auditory canals clear, tympanic membranes pearly [place] without erythema or effusion bilaterally. EYES: Pupils equal round and reactive to light and accommodation. Conjunctivae without injection, sclerae without icterus. Extraocular movements intact. NOSE: Patent, turbinates without inflammation or discharge. No sinus tenderness. MOUTH: Mucous membranes mildly dry. Pharynx without erythema or exudate. Uvula midline. Airway patent. Tongue does not deviate. NECK: Supple without nuchal rigidity. No lymphadenopathy. No thyromegaly. Cervical spine is nontender. No JVD. HEART: Regular rate and rhythm LUNGS: Clear to auscultation bilaterally without wheezes, rales or rhonchi. No retractions or accessory muscle use. ABDOMEN: Positive bowel sounds x 4. Normal tympanic percussion. Soft, nontender, without masses or organomegaly. Lane sign negative. No guarding or rebound tenderness. No CVA tenderness MUSCULOSKELETAL: No muscle atrophy noted. Left lower leg slightly erythematous and edematous. Pedal pulses +2 equal and present bilaterally. NEURO: Patient was alert and oriented to person but not to place and time. Normal sensation to light and sharp touch. Patient following commands. No focal neurological deficits. Course Administered Medications Discontinued Medications Sodium Chloride (Nss 1000ml) 1,000 mls @ 999 mls/hr IV .Q1H1M ONE Stop: 12/12/18 00:18 Last Infusion: 12/12/18 01:32 Dose: 0 mls/hr Documented by: [id number] Admin: 12/12/18 00:29 Dose: 999 mls/hr Documented by: [id number] Acetaminophen (Ofirmev) 1,000 mg in 100 mls @ 400 mls/hr IV NOW STA Stop: 12/11/18 23:32 Last Infusion: 12/12/18 00:40 Dose: 0 mls/hr Documented by: [id number] Admin: 12/12/18 00:24 Dose: 400 mls/hr Documented by: [id number] Piperacillin Sod/Tazobactam Sod (Zosyn) 4.5 gm in 120 mls @ 240 mls/hr IV NOW ONE Stop: 12/11/18 23:50 Last Infusion: 12/12/18 00:59 Dose: 0 mls/hr Documented by: [id number] Admin: 12/12/18 00:26 Dose: 240 mls/hr Documented by: [id number] Vancomycin HCl 2,500 mg/ (Sodium Chloride) 550 mls @ 200 mls/hr IV NOW ONE Stop: 12/12/18 02:05 Last Admin: 12/12/18 00:55 Dose: 200 mls/hr Documented by: [id number] Medical Decision Making Medical Records Attestation: I reviewed the patient's medical records. Home Medications Current Medication List: was personally reviewed by me Laboratory Data Attestation: I reviewed the patient's lab results. Result diagrams: 12/12/18 00:22 12/12/18 00:22 Lab Results 12/12/18 12/12/18 12/12/18 Range/Units 00:00 00:02 00:22 WBC 24.52 H (4.8-10.8) K/uL RBC 3.79 L (4.2-5.4) M/uL Hgb 11.3 L (12.0-16.0) g/dL Hct 32.7 L (37-47) % MCV 86.3 (80-100) fL MCH 29.8 (25-34) pg MCHC 34.6 (32-36) g/dL RDW Std Deviation 44.6 (36.4-46.3) fL RDW Coeff of [place] 14.3 (11.5-14.5) % Plt Count 199 (130-400) K/uL MPV 9.0 (7.4-10.4) fL Immature Gran % (Auto) 0.5 % Neut % (Auto) 91.3 % Lymph % (Auto) 4.0 % [place] % (Auto) 4.1 % Eos % (Auto) 0.0 % Baso % (Auto) 0.1 % Immature Gran # (Auto) 0.13 H (0.00-0.02) K/uL Neut # (Auto) 22.39 H (1.4-6.5) K/uL Lymph # (Auto) 0.97 L (1.2-3.4) K/uL [place] # (Auto) 1.01 H (0.11-0.59) K/uL Eos # (Auto) 0.00 (0-0.5) K/uL Baso # (Auto) 0.02 (0-0.2) K/uL RBC Morphology Unremarkable PT (9.0-12.0) Seconds INR (0.9-1.1) APTT (21.0-31.0) Seconds PTT Ratio Sodium (136-145) mmol/L Potassium (3.5-5.1) mmol/L Chloride (98-107) mmol/L Carbon Dioxide (21-32) mmol/L Anion Gap (3-11) BUN (7-18) mg/dl Creatinine (0.6-1.2) mg/dl Est Cr Clr Drug Dosing Est GFR ( Amer) Est GFR (Non-Af Amer) BUN/Creatinine Ratio (10-20) Glucose (70-99) mg/dl POC Lactic Acid Santiago 1.73 H (0.90-1.70) mmol/L Calcium (8.5-10.1) mg/dl Total Bilirubin (0.2-1) mg/dl AST (15-37) U/L ALT (12-78) U/L Alkaline Phosphatase (45-117) U/L Total Creatine Kinase (26-192) U/L Troponin I (0-0.045) ng/ml Total Protein (6.4-8.2) gm/dl Albumin (3.4-5.0) gm/dl Globulin (2.5-4.0) gm/dl Albumin/Globulin Ratio (0.9-2) Urine Color Urine Appearance (Clear) Urine pH (4.5-7.5) Ur Specific [place] (1.000-1.030) Urine Protein (Negative) Urine Glucose (UA) (Negative) Urine Ketones (Negative) Urine Blood (Negative) Urine Nitrite (Negative) Urine Bilirubin (Negative) Urine Urobilinogen (Negative) Ur Leukocyte Esterase (Negative) Urine WBC (Auto) (0-5) /hpf Urine RBC (Auto) (0-4) /hpf U Hyaline Cast (Auto) (0-5) /lpf U Epithel Cells (Auto) (0-5) /lpf Urine Bacteria (Auto) (Negative) Influenza Type A (PCR) Neg for Influ A (Neg) Influenza Type B (PCR) Neg for Influ B (Neg) 12/12/18 12/12/18 12/12/18 Range/Units 00:22 00:22 00:45 WBC (4.8-10.8) K/uL RBC (4.2-5.4) M/uL Hgb (12.0-16.0) g/dL Hct (37-47) % MCV (80-100) fL MCH (25-34) pg MCHC (32-36) g/dL RDW Std Deviation (36.4-46.3) fL RDW Coeff of [place] (11.5-14.5) % Plt Count (130-400) K/uL MPV (7.4-10.4) fL Immature Gran % (Auto) % Neut % (Auto) % Lymph % (Auto) % [place] % (Auto) % Eos % (Auto) % Baso % (Auto) % Immature Gran # (Auto) (0.00-0.02) K/uL Neut # (Auto) (1.4-6.5) K/uL Lymph # (Auto) (1.2-3.4) K/uL [place] # (Auto) (0.11-0.59) K/uL Eos # (Auto) (0-0.5) K/uL Baso # (Auto) (0-0.2) K/uL RBC Morphology PT 11.9 (9.0-12.0) Seconds INR 1.2 H (0.9-1.1) APTT 27.0 (21.0-31.0) Seconds PTT Ratio 1.0 Sodium 128 L (136-145) mmol/L Potassium 4.1 (3.5-5.1) mmol/L Chloride 92 L (98-107) mmol/L Carbon Dioxide 25 (21-32) mmol/L Anion Gap 11.0 (3-11) BUN 11 (7-18) mg/dl Creatinine 1.12 (0.6-1.2) mg/dl Est Cr Clr Drug Dosing Not Reportable Est GFR ( Amer) 54.5 Est GFR (Non-Af Amer) 47.0 BUN/Creatinine Ratio 10.2 (10-20) Glucose 201 H (70-99) mg/dl POC Lactic Acid Santiago (0.90-1.70) mmol/L Calcium 8.5 (8.5-10.1) mg/dl Total Bilirubin 0.4 (0.2-1) mg/dl AST 34 (15-37) U/L ALT 25 (12-78) U/L Alkaline Phosphatase 73 (45-117) U/L Total Creatine Kinase 746 H (26-192) U/L Troponin I < 0.015 (0-0.045) ng/ml Total Protein 7.2 (6.4-8.2) gm/dl Albumin 3.2 L (3.4-5.0) gm/dl Globulin 4.0 (2.5-4.0) gm/dl Albumin/Globulin Ratio 0.8 L (0.9-2) Urine Color Yellow Urine Appearance Clear (Clear) Urine pH 7.5 (4.5-7.5) Ur Specific [place] 1.014 (1.000-1.030) Urine Protein Negative (Negative) Urine Glucose (UA) Trace H (Negative) Urine Ketones Negative (Negative) Urine Blood 2+ H (Negative) Urine Nitrite Negative (Negative) Urine Bilirubin Negative (Negative) Urine Urobilinogen Negative (Negative) Ur Leukocyte Esterase Negative (Negative) Urine WBC (Auto) 1-5 (0-5) /hpf Urine RBC (Auto) 0-4 (0-4) /hpf U Hyaline Cast (Auto) 0 (0-5) /lpf U Epithel Cells (Auto) 0-5 (0-5) /lpf Urine Bacteria (Auto) Negative (Negative) Influenza Type A (PCR) (Neg) Influenza Type B (PCR) (Neg) Imaging Data Attestation: I personally reviewed and interpreted this imaging study as follows: Blood Pressure Blood Pressure Findings: Normal blood pressure MDM Narrative Prior records/ancillary studies reviewed and summarized above. Nursing notes reviewed. Additional history obtained from EMS and nurse from the halfway. The patient's history was concerning for altered mental status. Differential diagnosis: Etiologies such as metabolic, infection, hypoglycemia, electrolyte abnormalities, cardiac sources, intracerebral event, toxicologic, neurologic, as well as others were entertained. Physical examination: As above. ER treatment provided: IV Lock Normal saline hydration. Zosyn, vancomycin, Tylenol IV Patient's prior blood cultures and urine culture was reviewed and is pansensitive On reassessment the patients mental status improved. Diagnostics interpretation by me: ECG: Normal sinus, first degree AV block, rate of 103, no acute ST-T wave changes. Impression first-degree AV block with sinus tachycardia interpreted by myself I think arrhythmia is unlikely. EKG shows normal sinus rhythm with no interval abnormalities such as QT prolongation or WPW. There are no findings to suggest Brugada syndrome. Cardiac monitoring in the emergency department reveals no tachycardic or bradycardic dysrhythmia. Hypertrophic cardiomyopathy was con sidered but there are no clear historical elements pointing toward this. EKG is not suggestive. The QRS voltage is not extremely large and there are no suggestive Q waves. The labs revealed leukocytosis. Blood cultures pending. Elevated lactic acid. Negative flu. Negative urine Imaging studies: CT C SPINE: No fracture. Multilevel degenerative changes. Disc and osteophyte complexes at C5-6 and C6-7, narrowing the central canal. Facet arthropathy accounts for minimal C2, C3, and C4 anterolisthesis. Radiologist: Eric Vences M.D. CT HEAD: Compared to 09/14/18 Exam is limited by motion despite multiple rescans. There is no clear evidence of an acute intracranial process. Redemonstrated involutional and microvascular ischemic changes Radiologist: Eric Vences M.D. Chest x-ray with possible right lower lobe congestion without pneumothorax or free air per my interpretation. Given the above diagnostic work-up and treatment, this episode appears to be consistent with sepsis that could be from the left lower leg cellulitis. Patient was started on antibiotics. Further treatment will be required. Medicine was consulted. Family is agreeable treatment plan of admission Consultation: A consultation was placed with Dr. Silverman, hospitalist. The case was discussed and diagnostics were reviewed. The patient was evaluated in the ER for further treatment. Case reviewed with my attending The chart was completed utilizing [employer] Speech voice recognition software. Gr ammatical errors, random word insertions, pronoun errors, and incomplete sentences are an occassional consequence of this system due to software limitations, ambient noise, and hardware issues. Any formal questions or concerns about the content, text, or information contained within the body of this dictation should be directly addressed to the physician junior assistant manager for clarification. Impression & Plan Sepsis, Cellulitis of left leg, Acute hyponatremia Discharge Plan Visit Data Chief Complaint: Fall Stated Complaint: FALL, AMS, FEVER ED Provider: Mat Bullard ED Midlevel Provider: Julia Delgadillo Discharge Problem: Sepsis, Cellulitis of left leg, Acute hyponatremia Patient Disposition: Admitted As Inpatient Condition: Fair Discharge Instructions Interventions: ED Discharge Assessment Last Done: 12/12/18 02:39 Forms Stand Alone Forms: My Collections Prescriptions Prescriptions: No Action donepezil 5 mg Tablet 5 mg PO HS RF: 0 amitriptyline 100 mg Tablet 100 mg PO HS RF: 0 sertraline 25 mg Tablet 25 mg PO QAM RF: 0 tramadol 50 mg Tablet 50 mg PO Q6H PRN (Reason: Pain) RF: 0 duloxetine 60 mg Capsule,Delayed Release(Dr/Ec) 60 mg PO BID RF: 0 dextromethorphan polistirex [Delsym 12 hour] 30 mg/5 mL Suspension,Extended Rel 12 Hr 10 ml PO Q12H PRN (Reason: Cough) RF: 0 nystatin 100,000 unit/gram Powder 1 applic TOPICAL BID RF: 0 magnesium hydroxide [Milk of Magnesia] 400 mg/5 mL Suspension 2 - 4 tbsp PO DAILY PRN (Reason: Constipation) RF: 0 polyethylene glycol 3350 [Miralax] 17 gram Powder In Packet 17 g PO DAILY PRN (Reason: Constipation) RF: 0 acetaminophen [Tylenol Extra Strength] 500 mg Tablet 1,000 mg PO Q8 PRN (Reason: Pain) RF: 0 Restasis 0.05 % [place] 1 drp OPHTHALMIC (EYE) BID RF: 0 pantoprazole [address] For Susp In Packet 40 mg PO BIDM RF: 0 guaifenesin [Mucinex] 600 mg Tablet Extended Release 12hr 600 mg PO Q12H PRN (Reason: Congestion) RF: 0 spironolactone 25 mg Tablet 25 mg PO QAM RF: 0 atenolol 50 mg Tablet 50 mg PO QAM RF: 0 loperamide 2 mg Capsule 1 mg PO DIRECTED MDD 3 per day PRN (Reason: Diarrhea) RF: 0 methenamine hippurate 1 gram Tablet 1 g PO HS RF: 0 tamsulosin [Flomax] 0.4 mg Capsule 0.4 mg PO QAM RF: 0 potassium chloride 20 mEq Tablet,Er Particles/Crystals 60 meq PO BIDM RF: 0 Myrbetriq 50 mg Tablet Extended Release 24 Hr 50 mg PO QAM RF: 0 levothyroxine 125 mcg Tablet 250 mcg PO QAM RF: 0 metolazone 2.5 mg Tablet 2.5 mg PO 2XWK RF: 0 vitamin B complex Tablet 1 tab PO QAM RF: 0 ranitidine HCl 150 mg Tablet 150 mg PO BIDM RF: 0 trazodone 100 mg Tablet 200 mg PO HS RF: 0 clopidogrel [Plavix] 75 mg Tablet 75 mg PO QAM RF: 0 mometasone [Nasonex] 50 mcg/actuation [place],Non-Aerosol 1 spray INTRANASAL BID RF: 0 montelukast [Singulair] 10 mg Tablet 10 mg PO HS RF: 0 multivitamin Tablet 1 tab PO QAM RF: 0 metolazone 2.5 mg tablet 2.5 mg PO DAILY PRN (Reason: Weight Gain) RF: 0 ketoconazole [Nizoral] 2 % Shampoo 1 applic topical DAILY RF: 0 glucosamine sulfate [Glucosamine] 500 mg Tablet 1,500 mg PO QAM RF: 0 aspirin 81 mg Tablet,Delayed Release (Dr/Ec) 81 mg PO QAM RF: 0 ferrous sulfate [iron] 325 mg (65 mg iron) Tablet 325 mg PO 3XWK RF: 0 conjugated estrogens 0.625 mg/gram cream 1 applic topical 3XWK RF: 0 gabapentin 300 mg capsule 300 mg PO TIDM RF: 0 albuterol sulfate [ProAir HFA] 90 mcg/actuation Hfa Aerosol Inhaler 2 puff INHALATION QID PRN (Reason: Shortness Of Breath Or Wheezing) RF: 0 Systane (PF) 0.4-0.3 % [place] 1 drp OPHTHALMIC (EYE) TID RF: 0 Caltrate 600 + D 600 mg (1,500 mg)-800 unit Tablet,Chewable 1 tab PO BIDM RF: 0 Atrovent HFA 17 mcg/actuation Hfa Aerosol Inhaler 2 puff INHALATION QID PRN (Reason: Shortness Of Breath Or Wheezing) RF: 0 lorazepam 1 mg Tablet 1 mg PO HS RF: 0 Reguloid Powder 1 tbsp PO BID RF: 0 nystatin 100,000 unit/gram Cream 1 applic TOPICAL BID PRN (Reason: excoriation) RF: 0 magnesium sulfate (bulk) [Epsom Salt] 100 % Crystals 1 applic TOPICAL DAILY RF: 0 ketoconazole 2 % Cream 1 applic TOPICAL DAILY PRN (Reason: flares) RF: 0 Systane Gel 0.3 % Gel 1 drp OPB HS RF: 0 Calmoseptine 0.44-20.6 % Ointment 1 applic TOPICAL TID PRN (Reason: skin breakdown prevention) RF: 0 Referrals Referrals: Jame Ruth MD [Primary Care Provider] -
[2018-12-12] MEDS ORDERED: VANCOMYCIN HCL 1,000 MG in SODIUM CHLORIDE 0.9% 250 ML IV SCH (03:35)
[2018-12-12] MEDS ORDERED: GLUCOSE 10 TABS/TUBE PO PRN (03:35)
[2018-12-12] MEDS ORDERED: PIPERACILLIN/TAZOBACTAM 4.5 GM in DEXTROSE 5% 100 ML IV STA (03:35)
[2018-12-12] MEDS ORDERED: CARBOHYDRATES FOR HYPOGLYCEMIA PO PRN (03:35)
[2018-12-12] MEDS ORDERED: POLYETHYLENE (MIRALAX) 17 GM PACK PO PRN ×2 (03:35)
[2018-12-12] MEDS ORDERED: ONDANSETRON INJ 2 MG/ML 2 ML VIAL IV PRN (03:35)
[2018-12-12] MEDS ORDERED: VANCOMYCIN CONSULT ACTIVE PRN (03:35)
[2018-12-12] MEDS ORDERED: PIPERACILL/TAZOBAC CONSULT ACTIVE PRN (03:35)
[2018-12-12] MEDS ORDERED: GLUCAGON FOR INJ 1 MG VIAL SQ PRN (03:35)
[2018-12-12] MEDS ORDERED: GLUCOSE 40% GEL 15 GM TUBE PO PRN (03:35)
[2018-12-12] MEDS ORDERED: ACETAMINOPHEN 500 MG TAB PO PRN (03:35)
[2018-12-12] MEDS ORDERED: MAGNESIUM HYDROXIDE SUSP 30 ML UDC PO PRN (03:35)
[2018-12-12] MEDS ORDERED: DEXTROSE 50% 50 ML SYRINGE IV PRN (03:35)
[2018-12-12] MEDS ORDERED: ALUMINUM/MAGNESIUM SUSP 30 ML UDC PO PRN (03:35)
[2018-12-12] MEDS ORDERED: NYSTATIN CR 15 GM TUBE EXT PRN (03:35)
[2018-12-12] MEDS: NSS + 20MEQ KCL 20 MEQ/1,000 ML BAG IV SCH ×2 (05:08→14:19)
[2018-12-12] MEDS: PIPERACILLIN/TAZOBACTAM 4.5 GM in DEXTROSE 5% 100 ML IV SCH ×3 (05:23→21:22)
--- NOTE | 2018-12-12 05:28 | History & Physical Report ---
Date of Service December 12, 2018 Assessment & Plan (1) Confusion: Multifactorial--underlying dementia worsened by multiple areas of infection and dehydration: Cellulitis of left leg, UTI, respiratory infection with hypoxia-- CT of head was negative for acute bleeding. Would not pursue any more additional imaging, as this looks to be more of a metabolic encephalopathy picture Present on Admission?: Yes (2) Cellulitis of left leg: Placed on vancomycin IV and Zosyn IV. Order lower extremity venous Doppler to assess for possible DVT. Present on Admission?: Yes (3) Sepsis: Present on Admission?: Yes (4) CAD (coronary artery disease): CAD/hypertension-- Continue aspirin 81 mg daily, atenolol 50 mg every morning, clopidogrel 75 mg every morning. Hold metolazone and potassium chloride Present on Admission?: Yes (5) Diabetic peripheral neuropathy associated with type 2 diabetes mellitus: Continue gabapentin Present on Admission?: Yes (6) UTI (urinary tract infection): Antibiotics as above. Follow urine culture and sensitivity. Rehydrate with IV fluids: NSS + KCl 20 mEq 100 mils per hour Present on Admission?: Yes (7) Chronic interstitial cystitis: Continue usual supportive medications Present on Admission?: Yes (8) Dementia: Dementia/anxiety with depression-- As outpatient has been on amitriptyline 100 mg p.o. at bedtime, donepezil 5 mg at bedtime, duloxetine 60 mg p.o. twice daily, Lorazepam 1 mg at bedtime, sertraline 25 mg in the morning and trazodone 200 mg at bedtime. We will continue these medications, as it appears her mental state is improving with hydration and antibiotics in the ED. If there is a question about regression, the medications can be selectively held. Present on Admission?: Yes (9) Hypothyroidism (acquired): Continue levothyroxine sodium 250 mcg every morning. Present on Admission?: Yes (10) GERD (gastroesophageal reflux disease): Present on Admission?: Yes (11) Hypertension: As noted above. Present on Admission?: Yes (12) Anxiety with depression: As noted. Present on Admission?: Yes (13) YARI (obstructive sleep apnea): Order to have patient use her own CPAP at bedtime is placed Present on Admission?: Yes (14) Hyponatremia: Chronically in the upper 120s. Present on Admission?: Yes History of Present Illness Chief Complaint: Patient presents from intermediate after having been found on the floor face down near a piece of furniture, with worsening confusion compared to earlier in the day. Primary Care Provider: Jame Ruth MD Patient is a 78-year-old female resident of a local nursing facility, who had been noted to be mildly confused earlier in the day, seemed to improve during the day, and then was later found face down on the floor for an unknown period of time. Her daughter was called, and the patient was brought to the emergency department via EMS for assessment. In the emergency department, the patient is still somewhat confused and lethargic, but does answer questions. She has no specific complaints other than not feeling well, but did have an episode of emesis while on the ground at the facility. Most of the history is obtained from the daughter, who is with her in the ED, and by chart review. Allergies Allergy/AdvReac Type Severity Reaction Status Date / Time KODAK Inhibitors Allergy Unknown Unknown Verified 12/12/18 01:47 benson Allergy Unknown Verified 12/12/18 01:47 grass pollen Allergy Unknown Verified 12/12/18 01:47 perfume Allergy Unknown Verified 12/12/18 01:47 Home Medications Home Medications Medication Instructions Recorded Confirmed Type Myrbetriq 50 mg PO QAM 05/16/18 12/12/18 History Restasis 1 drp OPHTHALMIC (EYE) BID 05/16/18 12/12/18 History acetaminophen [Tylenol Extra 1,000 mg PO Q8 PRN 05/16/18 12/12/18 History Strength] amitriptyline 100 mg PO HS 05/16/18 12/12/18 History atenolol 50 mg PO QAM 05/16/18 12/12/18 History clopidogrel [Plavix] 75 mg PO QAM 05/16/18 12/12/18 History dextromethorphan polistirex 10 ml PO Q12H PRN 05/16/18 12/12/18 History [Delsym 12 hour] donepezil 5 mg PO HS 05/16/18 12/12/18 History duloxetine 60 mg PO BID 05/16/18 12/12/18 History guaifenesin [Mucinex] 600 mg PO Q12H PRN 05/16/18 12/12/18 History levothyroxine 250 mcg PO QAM 05/16/18 12/12/18 History loperamide 1 mg PO DIRECTED PRN MDD 3 per 05/16/18 12/12/18 History day magnesium hydroxide [Milk of 2 - 4 tbsp PO DAILY PRN 05/16/18 12/12/18 History Magnesia] methenamine hippurate 1 g PO HS 05/16/18 12/12/18 History metolazone 2.5 mg PO 2XWK 05/16/18 12/12/18 History mometasone [Nasonex] 1 spray INTRANASAL BID 05/16/18 12/12/18 History montelukast [Singulair] 10 mg PO HS 05/16/18 12/12/18 History nystatin 1 applic TOPICAL BID 05/16/18 12/12/18 History pantoprazole 40 mg PO BIDM 05/16/18 12/12/18 History polyethylene glycol 3350 [Miralax] 17 g PO DAILY PRN 05/16/18 12/12/18 History potassium chloride 60 meq PO BIDM 05/16/18 12/12/18 History ranitidine HCl 150 mg PO BIDM 05/16/18 12/12/18 History sertraline 25 mg PO QAM 05/16/18 12/12/18 History spironolactone 25 mg PO QAM 05/16/18 12/12/18 History tamsulosin [Flomax] 0.4 mg PO QAM 05/16/18 12/12/18 History tramadol 50 mg PO Q6H PRN 05/16/18 12/12/18 History trazodone 200 mg PO HS 05/16/18 12/12/18 History vitamin B complex 1 tab PO QAM 05/16/18 12/12/18 History Atrovent HFA 2 puff INHALATION QID PRN 09/14/18 12/12/18 History Caltrate 600 + D 1 tab PO BIDM 09/14/18 12/12/18 History Systane (PF) 1 drp OPHTHALMIC (EYE) TID 09/14/18 12/12/18 History albuterol sulfate [ProAir HFA] 2 puff INHALATION QID PRN 09/14/18 12/12/18 History aspirin 81 mg PO QAM 09/14/18 12/12/18 History conjugated estrogens 1 applic TOPICAL 3XWK 09/14/18 12/12/18 History ferrous sulfate [iron] 325 mg PO 3XWK 09/14/18 12/12/18 History gabapentin 300 mg PO TIDM 09/14/18 12/12/18 History glucosamine sulfate [Glucosamine] 1,500 mg PO QAM 09/14/18 12/12/18 History ketoconazole [Nizoral] 1 applic TOPICAL DAILY 09/14/18 12/12/18 History metolazone 2.5 mg PO DAILY PRN 09/14/18 12/12/18 History multivitamin 1 tab PO QAM 09/14/18 12/12/18 History artificial tears(hypromellose) 1 drp OPB HS 12/12/18 12/12/18 History [Systane Gel] ketoconazole 1 applic TOPICAL DAILY PRN 12/12/18 12/12/18 History lorazepam 1 mg PO HS 12/12/18 12/12/18 History magnesium sulfate (bulk) [Epsom 1 applic TOPICAL DAILY 12/12/18 12/12/18 History Salt] menthol-zinc oxide [Calmoseptine] 1 applic TOPICAL TID PRN 12/12/18 12/12/18 History nystatin 1 applic TOPICAL BID PRN 12/12/18 12/12/18 History psyllium seed (sugar) [Reguloid] 1 tbsp PO BID 12/12/18 12/12/18 History Past Med/Surg History Medical History Morbid obesity with BMI of 50.0-59.9, adult YARI (obstructive sleep apnea) Hyponatremia Diastolic CHF, chronic CAD (coronary artery disease) Chronic interstitial cystitis Sepsis (Acute) Confusion (Acute) UTI (urinary tract infection) (Acute) Diabetes (Chronic) TIA (transient ischemic attack) (Resolved) Pulmonary embolism (Resolved) UTI (urinary tract infection) (Resolved) Cardiac valve prolapse (Chronic) Balance disorder Basal pneumonia of both lungs (Acute) Diabetic peripheral neuropathy associated with type 2 diabetes mellitus Foot deformity Foot pain Loss of sensation Family History Other Family history non-contributory Social History Preferred Language: Korean Communication Ability: Effective Cocktail Lounge Manager Required: No Beliefs That Will Affect Care: None Current Living Situation: Personal Care Facility Current Living Situation Comment: [facility] Feels Safe at Home: Yes Safety Concerns: Feels Safe At This Time Smoking Status: Never smoker Hx Alcohol Use: No Hx Substance Use: No Review of Systems Review of systems is somewhat limited, as was the HPI, due to the patient's altered mental state, primarily reviewed through the the daughter and chart review. Physical Exam Vital Signs (Past 24 Hours): Last Vital Signs Temp 37 C 12/12/18 03:41 Pulse 83 12/12/18 04:00 Resp 16 12/12/18 03:41 BP 110/62 12/12/18 03:41 Pulse Ox 98 12/12/18 03:41 Physical Exam: The patient is awake, lethargic, normocephalic and atraumatic, lying in bed and in no acute distress. HEENT--PERRL, EOMI, mucous membranes and oropharynx dry. Neck--supple. No JVD. No bruits. Thyroid normal, trachea midline, no adenopathy. Heart--normal S1 and S2. No murmurs, rubs or gallops. Lungs--few coarse breath sounds bilaterally, decreased breath sounds left base. Abdomen--normal bowel sounds and soft. Nontender. Nondistended. Extremities--no cyanosis or clubbing. No edema. There are good distal pulses b/l. Dermatologic--skin is dry Neurologic--cranial nerves II through XII grossly intact. Rheumatologic--limited exam Psychiatric--lethargic Results & Data Laboratory Results Laboratory Results WBC 24.52 K/uL (4.8-10.8) H 12/12/18 00:22 RBC 3.79 M/uL (4.2-5.4) L 12/12/18 00:22 Hgb 11.3 g/dL (12.0-16.0) L 12/12/18 00:22 Hct 32.7 % (37-47) L 12/12/18 00:22 MCV 86.3 fL (80-100) 12/12/18 00:22 MCH 29.8 pg (25-34) 12/12/18 00:22 MCHC 34.6 g/dL (32-36) 04/02/19 00:22 RDW Std Deviation 44.6 fL (36.4-46.3) 12/12/18 00: RDW Coeff of Chalino 14.3 % (11.5-14.5) 12/12/18 00:22 Plt Count 199 K/uL (130-400) 12/12/18 00:22 MPV 9.0 fL (7.4-10.4) 12/12/18 00:22 Immature Gran % (Auto) 0.5 % 12/12/18 00:22 Neut % (Auto) 91.3 % 12/12/18 00:22 Lymph % (Auto) 4.0 % 12/12/18 00:22 Bucks % (Auto) 4.1 % 12/12/18 00:22 Eos % (Auto) 0.0 % 12/12/18 00:22 Baso % (Auto) 0.1 % 12/12/18 00:22 Immature Gran # (Auto) 0.13 K/uL (0.00-0.02) H 12/12/18 00:22 Neut # (Auto) 22.39 K/uL (1.4-6.5) H 12/12/18 00:22 Lymph # (Auto) 0.97 K/uL (1.2-3.4) L 12/12/18 00:22 Bucks # (Auto) 1.01 K/uL (0.11-0.59) H 12/12/18 00:22 Eos # (Auto) 0.00 K/uL (0-0.5) 12/12/18 00:22 Baso # (Auto) 0.02 K/uL (0-0.2) 12/12/18 00:22 RBC Morphology Unremarkable 12/12/18 00: PT 11.9 Seconds (9.0-12.0) 12/12/18 00:22 INR 1.2 (0.9-1.1) H 12/12/18 00:22 APTT 27.0 Seconds (21.0-31.0) 12/12/18 00: PTT Ratio 1.0 12/12/18 00: Sodium 128 mmol/L (136-145) L 12/12/18 00:22 Potassium 4.1 mmol/L (3.5-5.1) 12/12/18 00:22 Chloride 92 mmol/L (98-107) L 12/12/18 00:22 Carbon Dioxide 25 mmol/L (21-32) 12/12/18 00:22 Anion Gap 11.0 (3-11) 12/12/18 00:22 BUN 11 mg/dl (7-18) 12/12/18 00:22 Creatinine 1.12 mg/dl (0.6-1.2) 12/12/18 00:22 Est Cr Clr Drug Dosing Not Reportable 12/12/18 00:22 Est GFR ( Amer) 54.5 12/12/18 00:22 Est GFR (Non-Af Amer) 47.0 12/12/18 00:22 BUN/Creatinine Ratio 10.2 (10-20) 12/12/18 00:22 Glucose 201 mg/dl (70-99) H 12/12/18 00:22 POC Lactic Acid Santiago 1.73 mmol/L (0.90-1.70) H 12/12/18 00: Calcium 8.5 mg/dl (8.5-10.1) 12/12/18 00:22 Total Bilirubin 0.4 mg/dl (0.2-1) 12/12/18 00:22 AST 34 U/L (15-37) 12/12/18 00:22 ALT 25 U/L (12-78) 12/12/18 00:22 Alkaline Phosphatase 73 U/L (45-117) 12/12/18 00:22 Total Creatine Kinase 746 U/L (26-192) H 12/12/18 00:22 Troponin I < 0.015 ng/ml (0-0.045) 12/12/18 00:22 Total Protein 7.2 gm/dl (6.4-8.2) 12/12/18 00:22 Albumin 3.2 gm/dl (3.4-5.0) L 12/12/18 00:22 Globulin 4.0 gm/dl (2.5-4.0) 12/12/18 00:22 Albumin/Globulin Ratio 0.8 (0.9-2) L 12/12/18 00:22 Urine Color Yellow 12/12/18 00:45 Urine Appearance Clear (Clear) 12/12/18 00:45 Urine pH 7.5 (4.5-7.5) 12/12/18 00:45 Ur Specific Shiro 1.014 (1.000-1.030) 12/12/18 00:45 Urine Protein Negative (Negative) 12/12/18 00:45 Urine Glucose (UA) Trace (Negative) H 12/12/18 00:45 Urine Ketones Negative (Negative) 12/12/18 00:45 Urine Blood 2+ (Negative) H 12/12/18 00:45 Urine Nitrite Negative (Negative) 12/12/18 00:45 Urine Bilirubin Negative (Negative) 12/12/18 00:45 Urine Urobilinogen Negative (Negative) 12/12/18 00:45 Ur Leukocyte Esterase Negative (Negative) 12/12/18 00:45 Urine WBC (Auto) 1-5 /hpf (0-5) 12/12/18 00:45 Urine RBC (Auto) 0-4 /hpf (0-4) 12/12/18 00:45 U Hyaline Cast (Auto) 0 /lpf (0-5) 12/12/18 00:45 U Epithel Cells (Auto) 0-5 /lpf (0-5) 12/12/18 00:45 Urine Bacteria (Auto) Negative (Negative) 12/12/18 00:45 Influenza Type A (PCR) Neg for Influ A (Neg) 12/12/18 00:00 Influenza Type B (PCR) Neg for Influ B (Neg) 12/12/18 00:00 Code Status & VTE Plan Code Status Full code VTE Prophylaxis Plan VTE Prophylaxis will be ordered: Yes (1) Sepsis Sepsis type: sepsis due to unspecified organism Qualified Code(s): A41.9 - Sepsis, unspecified organism
[2018-12-12] MEDS: LEVOTHYROXINE SODIUM 125 MCG TABLET PO SCH (05:30)
--- NOTE | 2018-12-12 07:04 | XRay Report ---
XR chest 1V portable CLINICAL HISTORY: Sepsis COMPARISON STUDY: Chest radiograph September 14, 2018. FINDINGS: Severe osteoarthritis of the right glenohumeral joint is noted. There is moderate to severe osteoarthritis of the left glenohumeral joint. There is no pneumothorax or pleural effusion. Patient is rotated. Cardiomegaly is unchanged. There is pulmonary vascular congestion without overt pulmonar y edema. There is no lobar consolidation. IMPRESSION: No change in appearance of the chest. Cardiomegaly and pulmonary vascular congestion. Electronically signed by: Adrian Hoffman M.D. 12/12/2018 7:02 AM
--- NOTE | 2018-12-12 07:06 | CT Scan Report ---
CT OF THE HEAD WITHOUT CONTRAST CLINICAL HISTORY: AMS, on plavix COMPARISON STUDY: Head CT September 14, 2018. TECHNIQUE: Helical axial images of the head were obtained without IV contrast. Automated exposure con trol was utilized for the study. A dose lowering technique was utilized adhering to the principles o f ALARA. FINDINGS: Exam is mildly compromised by motion artifact. No acute intracranial hemorrhage, midline sh ift or mass effect is present. Ventricular system is stable. Basilar cisterns are patent. There are n o extra-axial collections. White matter hypodensity suggests small vessel disease. There are no findi ngs to suggest acute dural sinus thrombosis or acute territorial infarct. There is no calvarial fract ure. IMPRESSION: No acute intracranial findings. Electronically signed by: Adrian Hoffman M.D. 12/12/2018 7:05 AM
--- NOTE | 2018-12-12 07:06 | Ultrasound Report ---
US venous doppler LE CLINICAL HISTORY: 78 years-old Female presenting with bilateral lower examination swelling. TECHNIQUE: Real-time grayscale and color and spectral Doppler ultrasound imaging of the veins of the bilateral lower extremities was performed. Compression and augmentation were also utilized. COMPARISON: 01/21/2010. FINDINGS: RIGHT: Common femoral vein: Patent. Greater saphenous vein (superficial): Patent. Deep femoral vein: Patent. Femoral vein: Patent. Popliteal vein: Patent. Calf veins: Patent. LEFT: Common femoral vein: Patent. Greater saphenous vein (superficial): Patent. Deep femoral vein: Patent. Femoral vein: Patent. Popliteal vein: Patent. Calf veins: Patent. Other: None. IMPRESSION: No evidence of deep venous thrombosis. Electronically signed by: Michael Mast M.D. 12/12/2018 7:04 AM
--- NOTE | 2018-12-12 07:09 | CT Scan Report ---
CT OF THE CERVICAL SPINE WITHOUT CONTRAST CLINICAL HISTORY: fall, AMS COMPARISON STUDY: Neck radiograph September 14, 2018. TECHNIQUE: Helical axial images of the cervical spine were obtained without IV contrast. Sagittal a nd coronal reconstructions were viewed. Automated exposure control was utilized for the study. A do se lowering technique was utilized adhering to the principles of ALARA. FINDINGS: Exam is mildly compromised by motion artifact. The craniocervical junction is intact. There is no acute cervical spine fracture. There is moderate multilevel degenerative disc disease and face t arthrosis. There is no prevertebral edema. Facet joints are intact. IMPRESSION: 1. No acute cervical spine fracture or subluxation. 2. Study mildly compromised by motion artifact. 3. Moderate multilevel degenerative disc disease and facet arthrosis. Electronically signed by: Adrian Hoffman M.D. 12/12/2018 7:08 AM
[2018-12-12 07:12] LABS: Estimated Average Glucose 148 mg/dl; Hemoglobin A1C 6.8 % (4.5-5.6)
[2018-12-12] MEDS ORDERED: INSULIN ASPART 100 UNITS/ML 3 ML PEN SC SCH (07:30)
--- NOTE | 2018-12-12 07:45 | Family Medicine Progress Note ---
Date of Service December 12, 2018 Assessment & Plan (1) Confusion: Ms. Rivero is a 78 year old female with a past medical history of DM II, peripheral neuropathy, history of TIA, history of pulmonary embolism in 2010 (not on anticoagulation), chronic interstitial cystitis likely due to incontinen ce and vaginal prolapse, iron deficiency anemia, hyponatremia, HTN, chronic diastolic CHF, nonobstructive CAD, hypothyroidism, GERD, IBS, depression, asthma, COPD, YARI on CPAP who presented to [facility] after she was found on the floor at her long term. - Multifactorial - underlying dementia w/metabolic encephalopathy caused by infection of left leg and dehydration - CT of head was negative for acute bleeding - alert and oriented x2 this morning, slightly confused with date (2) Cellulitis of left leg: - more concerning at this time for lymphangitis given streaking up patient's thigh - continue empiric vancomycin IV and Zosyn IV. - b/l lower extremity venous Dopplers negative (3) Sepsis: (4) CAD (coronary artery disease): - Continue aspirin 81 mg daily, atenolol 50 mg every morning, clopidogrel 75 mg every morning. - Hold metolazone and potassium chloride (5) Diabetic peripheral neuropathy associated with type 2 diabetes mellitus: - Continue gabapentin (6) Chronic interstitial cystitis: - Continue usual supportive medications (7) Dementia: - Dementia/anxiety with depression - continue regimen of amitriptyline 100 mg p.o. at bedtime, donepezil 5 mg at bedtime, duloxetine 60 mg p.o. twice daily, Lorazepam 1 mg at bedtime, sertraline 25 mg in the morning and trazodone 200 mg at bedtime. (8) Hypothyroidism (acquired): - Continue levothyroxine sodium 250 mcg every morning. (9) GERD (gastroesophageal reflux disease): (10) Hypertension: - As noted above. (11) Anxiety with depression: - As noted. (12) YARI (obstructive sleep apnea): - continue home CPAP (13) COPD (chronic obstructive pulmonary disease): - continue home inhalers - pt initially was palced on oxygen, but able to be weaned off - no signs of pneumonia on CXR, no evidence of COPD exacerbation (14) Hyponatremia: - Chronically in the upper 120s. - sodium level 128 Code status: FULL DVT Prophylaxis: Heparin 5,000 BID Disposition: remains on med/surg Supervising Physician Co-Signing Physician Notes I personally examined the patient and verified all posada points of history and exam, discussed case, and agree with decision making with Dr Abraham. Feeling okay just very tired. Leg appears and feels better to her than it did yesterday. Vitals noted, in general she is in no distress. Breathing is unlabored, she does appear quite fatigued. Mucous membranes slightly dry. Her left leg has a pink tender erythema in the medial calf and then streaking up the medial thigh. It is fairly tender to palpate with no crepitus or fluctuance. Lymphangitis with sepsisappears to be stabilizing, continue current antibiotics and supportive care. Follow closely. DVT prophylaxisheparin subcu. Subjective See Dr. Bauman's H&P for details on history and physical examination. Physical Exam Vital Signs (Past 24 Hours): Last Vital Signs Temp 37 C 12/12/18 03:41 Pulse 85 12/12/18 07:16 Resp 16 12/12/18 03:41 BP 110/62 12/12/18 03:41 Pulse Ox 98 12/12/18 03:41 Resident Activity Tracking Resident Involvement: Resident Care Provided Care Provided: Adult Hospital Medicine (1) Sepsis Sepsis type: sepsis due to unspecified organism Qualified Code(s): A41.9 - Sepsis, unspecified organism
[2018-12-12] MEDS: DULOXETINE HCL 60 MG CAP PO SCH ×2 (08:15→12:35)
[2018-12-12] MEDS: GLUCOSAMINE SULFATE 500 MG CAP PO SCH (08:15)
[2018-12-12] MEDS: SERTRALINE HCL 50 MG TABLET PO SCH (08:16)
[2018-12-12] MEDS: GABAPENTIN 300 MG CAP PO SCH ×3 (08:17→17:40)
[2018-12-12] MEDS: MULTIVITAMIN TAB PO SCH (08:18)
[2018-12-12] MEDS: VITAMIN B COMPLEX TAB PO SCH (08:18)
[2018-12-12] MEDS: PANTOprazole 40 MG TAB PO SCH ×2 (08:18→17:40)
[2018-12-12] MEDS: ASPIRIN 81 MG ECTAB PO SCH (08:18)
[2018-12-12] MEDS: CALCIUM 600MG + VIT D 400 IU TAB PO SCH ×2 (08:19→17:41)
[2018-12-12] MEDS: FLUTICASONE PROPIONATE NA SPR 16 GM BTL SCH ×2 (08:19→20:35)
[2018-12-12] MEDS: CLOPIDOGREL BISULFATE 75 MG TAB PO SCH (08:19)
[2018-12-12] MEDS: ATENOLOL 50 MG TABLET PO SCH (08:19)
[2018-12-12] MEDS: INSULIN ASPART 100 UNITS/ML 3 ML PEN SC SCH ×4 (08:21→20:36)
[2018-12-12] MEDS: ARTIFICIAL TEARS OP SCH ×3 (08:29→20:36)
[2018-12-12] MEDS ORDERED: ARTIFICIAL TEARS OP SCH (09:00)
[2018-12-12] MEDS ORDERED: TAMSULOSIN HCL 0.4 MG CAP PO SCH (09:00)
[2018-12-12] MEDS ORDERED: IPRATROPIUM BROMIDE HFA INHALER INH PRN (09:22)
[2018-12-12] MEDS ORDERED: ALBUTEROL HFA 8 GM INHALER INH PRN (09:22)
[2018-12-12] MEDS: RESTASIS - ORDER AWAITING ACTION SCH ×2 (09:44→15:37)
--- NOTE | 2018-12-12 13:39 | Pharmacy Report ---
Pharmacy Abx Dose Short Note - Date of Service December 12, 2018 - Assessment & Plan Assessment * 78 year old F receiving VANCOMYCIN + ZOSYN for cellulitis, possible UTI and possible PNA * CXR read as no consolidation * Negative influenza A/B * MRSA nasal swab is pending * UA not suggestive of UTI (negative nitrate, negative LE, no pyuria) * Procal was elevated (0.76) Plan Vancomycin * Loading dose: 2500mg (~23mg/kg) IV x 1 * Maint dose: 1500mg (~13.6mg/kg) IV Q 18 hours * Goal trough level for possible pulm infxn / sepsis : 15 to 20 mcg/mL * Will check trough level w/ 3rd dose * P'kinetic estimates: Vd ~0.55-0.6L/kg (due to BMI > 35), half-life ~16 hours Zosyn * BMI > 35, eCrCl > 20 * Zosyn 4.5gm ext-infusion Q 8 hrs indicated Pharmacy will continue to follow and will adjust dose/frequency as necessary. Thank you.
[2018-12-12] MEDS: TRAMADOL HCL 50 MG TABLET PO PRN (15:35)
[2018-12-12] MEDS ORDERED: SODIUM CHLORIDE 0.9% 250 ML IV ONE (16:45)
[2018-12-12] MEDS: LORazepam 1 MG TAB PO SCH (20:33)
[2018-12-12] MEDS: DONEPEZIL HCL 5 MG TAB PO SCH (20:34)
[2018-12-12] MEDS: MONTELUKAST SODIUM 10 MG TABLET PO SCH (20:34)
[2018-12-12] MEDS: AMITRIPTYLINE HCL 100 MG TAB PO SCH (20:35)
[2018-12-12] MEDS: HEPARIN SOD 5,000 UNIT/0.5 ML VIAL SQ SCH (20:35)
[2018-12-12] MEDS: TRAZODONE HCL 100 MG TAB PO SCH (20:35)
[2018-12-12] MEDS: ARTIFICIAL TEARS OP OINT 3.5 GM TUBE OPB SCH (20:35)
[2018-12-13] MEDS: RESTASIS - ORDER AWAITING ACTION SCH ×4 (00:02→23:48)
[2018-12-13] MEDS: NSS + 20MEQ KCL 20 MEQ/1,000 ML BAG IV SCH ×2 (00:02→09:51)
[2018-12-13] MEDS: PIPERACILLIN/TAZOBACTAM 4.5 GM in DEXTROSE 5% 100 ML IV SCH (06:01)
[2018-12-13] MEDS: LEVOTHYROXINE SODIUM 125 MCG TABLET PO SCH (06:02)
[2018-12-13 06:28] LABS: Basophils # (auto) 0.01 K/uL (0-0.2); Basophils % (auto) 0.1 %; Eosinophils # (auto) 0.16 K/uL (0-0.5); Eosinophils % (auto) 1.6 %; Hematocrit (blood only) 29.3 % (37-47); Hemoglobin 10.1 g/dL (12.0-16.0); Immature Granulocytes # (auto) 0.03 K/uL (0.00-0.02); Immature Granulocytes % (auto) 0.3 %; Lymphocytes # (auto) 1.14 K/uL (1.2-3.4); Lymphocytes % (auto) 11.3 %; Mean Corpuscular Hgb Conc 34.5 g/dL (32-36); Mean Corpuscular Volume 86.4 fL (80-100); Mean Platelet Volume 9.1 fL (7.4-10.4); Monocytes # (auto) 0.64 K/uL (0.11-0.59); Monocytes % (auto) 6.3 %; Neutrophils # (auto) 8.13 K/uL (1.4-6.5); Neutrophils % (auto) 80.4 %; Platelet Count 160 K/uL (130-400); RDW Coefficient of Variation 14.4 % (11.5-14.5); RDW Standard Deviation 45.6 fL (36.4-46.3); Red Blood Count 3.39 M/uL (4.2-5.4); White Blood Count 10.11 K/uL (4.8-10.8)
--- NOTE | 2018-12-13 06:50 | Family Medicine Progress Note ---
Date of Service December 13, 2018 Assessment & Plan (1) Confusion: Ms. Rivero is a 78 year old female with a past medical history of DM II, peripheral neuropathy, history of TIA, history of pulmonary embolism in 2010 (not on anticoagulation), chronic interstitial cystitis likely due to incontinen ce and vaginal prolapse, iron deficiency anemia, hyponatremia, HTN, chronic diastolic CHF, nonobstructive CAD, hypothyroidism, GERD, IBS, depression, asthma, COPD, YARI on CPAP who presented to [facility] after she was found on the floor at her halfway. - Multifactorial - underlying dementia w/metabolic encephalopathy caused by infection of left leg and dehydration - CT of head was negative for acute bleeding - more alert and oriented this AM, AMS resolved. She is slightly forgetful at times, but answers questions appropriately. Her daughter agrees she is much improved. (2) Cellulitis of left leg: - moreso a lymphangitis picture than cellulitis, improving - WCC back to normal - bcx pending, preliminary negative - transition empiric vancomycin IV and Zosyn IV to 500mg PO Keflex tid - b/l lower extremity venous Dopplers negative - d/c IVF as patient maintaining adequate PO intake (3) Sepsis: (4) CAD (coronary artery disease): - Continue aspirin 81 mg daily, atenolol 50 mg every morning, clopidogrel 75 mg every morning. - Hold metolazone and potassium chloride given BP on the lower side. Patient ta kes 2.5mg metolazone twice a week & daily prn (5) Diabetic peripheral neuropathy associated with type 2 diabetes mellitus: - Continue gabapentin (6) Chronic interstitial cystitis: - Continue usual supportive medications (7) Dementia: - Dementia/anxiety with depression - continue regimen of amitriptyline 100 mg p.o. at bedtime, donepezil 5 mg at bedtime, duloxetine 60 mg p.o. twice daily, Lorazepam 1 mg at bedtime, sertraline 25 mg in the morning and trazodone 200 mg at bedtime. (8) Hypothyroidism (acquired): - Continue levothyroxine sodium 250 mcg every morning. (9) GERD (gastroesophageal reflux disease): (10) Hypertension: - As noted above. (11) Anxiety with depression: - As noted. (12) YARI (obstructive sleep apnea): - continue home CPAP (13) COPD (chronic obstructive pulmonary disease): - continue home inhalers (14) Diabetes: - HbA1C was 6.1 in March 2018 - not on any home medications - ISS ordered - glucose ranging from 117-158 today (15) Hyponatremia: - Chronically in the upper 120s. - sodium level 130 today Code status: FULL DVT Prophylaxis: Heparin 5,000 BID Disposition: remains on med/surg. PT/OT states patient would benefit from rehab. Patient likely d/c to [facility] tomorrow with increased PT. Supervising Physician Co-Signing Physician Notes I personally examined the patient and verified all posada points of history and exam, discussed case, and agree with decision making with Dr Abraham. Feeling better, acting more like herself. Daughter present, all questions answered to the best my ability and to her satisfaction. Vitals noted, in general she is in no distress. Breathing is unlabored, she does appear quite fatigued. Mucous membranes moist. Her left leg improving, it is no longer tender, and the pink coloration has tracked along with gravity, is less dense a little more diffuse, but in a way that fits with resolving erythema Lymphangitis with sepsisimproving, transition to Keflex. Deconditioning/weaknesscoordinate with personal care, hopefully she will be abl e to go home DVT prophylaxisheparin subcu. Subjective Ms. Rivero reports she feels better today. She states her breathing has improved. She notes her left leg is less painful, and states she would like to try getting up and walking. She states she lives at [facility], and ambulates with a walker at baseline. Constitutional: + fatigue; no fever and no chills Respiratory: no cough and no dyspnea Cardiovascular: no chest pain Gastrointestinal: no abdominal pain, no nausea and no vomiting Physical Exam Vital Signs (Past 24 Hours): Last Vital Signs Temp 36.5 C 12/12/18 23:39 Pulse 67 12/12/18 23:39 Resp 20 12/12/18 23:39 BP 142/70 H 12/12/18 23:39 Pulse Ox 96 12/12/18 23:39 Constitutional: WD/WN, vitals as above + morbidly obese, cooperative and comfortable Respiratory: Auscultation: lungs clear to auscultation bilaterally and + diminished lung sounds Cardiovascular: RRR, no murmur, no edema Gastrointestinal (Abdomen): Percussion/Palpation: abdomen soft; abdomen nontender Skin: left leg faintly erythematous, extending up medial leg to thigh. Less tender to palpation than yesterday. Results & Data Laboratory Results Laboratory Results - last 24 hr 12/12/18 12/12/18 12/12/18 11:37 16:19 20:22 WBC RBC Hgb Hct MCV MCH MCHC RDW Std Deviation RDW Coeff of Chalino Plt Count MPV Immature Gran % (Auto) Neut % (Auto) Lymph % (Auto) Davis % (Auto) Eos % (Auto) Baso % (Auto) Immature Gran # (Auto) Neut # (Auto) Lymph # (Auto) Davis # (Auto) Eos # (Auto) Baso # (Auto) Sodium Potassium Chloride Carbon Dioxide Anion Gap BUN Creatinine Est Cr Clr Drug Dosing Est GFR ( Amer) Est GFR (Non-Af Amer) BUN/Creatinine Ratio Glucose POC Glucose 149 H 137 H 152 H Calcium Nasal Screen MRSA (PCR) 12/13/18 12/13/18 12/13/18 00:45 05:52 05:52 WBC 10.11 RBC 3.39 L Hgb 10.1 L Hct 29.3 L MCV 86.4 MCH 29.8 MCHC 34.5 RDW Std Deviation 45.6 RDW Coeff of Chalino 14.4 Plt Count 160 MPV 9.1 Immature Gran % (Auto) 0.3 Neut % (Auto) 80.4 Lymph % (Auto) 11.3 Davis % (Auto) 6.3 Eos % (Auto) 1.6 Baso % (Auto) 0.1 Immature Gran # (Auto) 0.03 H Neut # (Auto) 8.13 H Lymph # (Auto) 1.14 L Davis # (Auto) 0.64 H Eos # (Auto) 0.16 Baso # (Auto) 0.01 Sodium 130 L Potassium 4.0 Chloride 97 L Carbon Dioxide 27 Anion Gap 6.0 BUN 11 Creatinine 0.90 Est Cr Clr Drug Dosing 61.9 Est GFR ( Amer) 71.0 Est GFR (Non-Af Amer) 61.2 BUN/Creatinine Ratio 12.0 Glucose 108 H POC Glucose Calcium 7.8 L Nasal Screen MRSA (PCR) Negative 12/13/18 07:15 WBC RBC Hgb Hct MCV MCH MCHC RDW Std Deviation RDW Coeff of Chalino Plt Count MPV Immature Gran % (Auto) Neut % (Auto) Lymph % (Auto) Davis % (Auto) Eos % (Auto) Baso % (Auto) Immature Gran # (Auto) Neut # (Auto) Lymph # (Auto) Davis # (Auto) Eos # (Auto) Baso # (Auto) Sodium Potassium Chloride Carbon Dioxide Anion Gap BUN Creatinine Est Cr Clr Drug Dosing Est GFR ( Amer) Est GFR (Non-Af Amer) BUN/Creatinine Ratio Glucose POC Glucose 117 H Calcium Nasal Screen MRSA (PCR) Medications Administered Current Inpatient Medications Acetaminophen (Tylenol) 1,000 mg PO Q8H PRN PRN Reason: Pain Stop: 01/11/19 03:34 Last Admin: 12/12/18 15:36 Dose: 1,000 mg Documented by: Al Hydrox/Mg Hydrox/Simethicone (Maalox) 15 ml PO Q4H PRN PRN Reason: Dyspepsia Stop: 01/11/19 03:34 Albuterol (Ventolin Hfa) 2 puffs INH QID PRN PRN Reason: Shortness Of Breath Or Wheezin Stop: 01/11/19 09:21 Last Admin: 12/12/18 14:20 Dose: 2 puffs Documented by: Amitriptyline HCl (Elavil) 100 mg PO HS [facility] Stop: 01/11/19 20:59 Last Admin: 12/12/18 20:35 Dose: 100 mg Documented by: Artificial Tears (Artificial Tears) 1 drops OP TID [facility] Stop: 01/11/19 08:59 Last Admin: 12/13/18 07:44 Dose: 1 drops Documented by: Aspirin (Ecotrin Ectab) 81 mg PO QAM [facility] Stop: 01/11/19 08:59 Last Admin: 12/13/18 07:44 Dose: 81 mg Documented by: Atenolol (Tenormin) 50 mg PO QAM [facility] Stop: 01/11/19 08:59 Last Admin: 12/13/18 07:46 Dose: 50 mg Documented by: Clopidogrel Bisulfate (Plavix) 75 mg PO QAM [facility] Stop: 01/11/19 08:59 Last Admin: 12/13/18 07:43 Dose: 75 mg Documented by: Dextrose (Dextrose 50%) 25 - 50 ml IV UD PRN; Protocol PRN Reason: Hypoglycemia Protocol Stop: 01/11/19 03:34 Donepezil HCl (Aricept) 5 mg PO HS [facility] Stop: 01/11/19 20:59 Last Admin: 12/12/18 20:34 Dose: 5 mg Documented by: Duloxetine HCl (Cymbalta) 60 mg PO DAILY@0800,1200 [facility] Stop: 01/11/19 07:59 Last Admin: 12/13/18 07:28 Dose: 60 mg Documented by: Estrogens Conjugated (Premarin Vag) 1 appln PV MoWeFr@0900 [facility] Stop: 01/12/19 08:59 Last Admin: 12/13/18 09:06 Dose: 1 appln Documented by: Fluticasone Propionate (Flonase) 1 sprays NA BID [facility] Stop: 01/11/19 08:59 Last Admin: 12/13/18 07:44 Dose: 1 sprays Documented by: Gabapentin (Neurontin) 300 mg PO TIDM [facility] Stop: 01/11/19 07:59 Last Admin: 12/13/18 07:27 Dose: 300 mg Documented by: Glucagon (Glucagen) 1 mg SQ UD PRN; Protocol PRN Reason: Hypoglycemia Protocol Stop: 01/11/19 03:34 Glucosamine Sulfate (Glucosamine Sulfate) 1,500 mg PO QAM [facility] Stop: 01/11/19 08:59 Last Admin: 12/13/18 07:44 Dose: 1,500 mg Documented by: Glucose (Glucose 40%) 15 - 30 gm PO UD PRN; Protocol PRN Reason: Hypoglycemia Protocol Stop: 01/11/19 03:34 Glucose (Dex4 Glucose) 4 - 8 tabs PO UD PRN; Protocol PRN Reason: Hypoglycemia Protocol Stop: 01/11/19 03:34 Heparin Sodium (Porcine) (Heparin Sodium (Porcine)) 5,000 units SQ Q12 [facility] Stop: 01/11/19 20:59 Last Admin: 12/13/18 07:45 Dose: 5,000 units Documented by: Potassium Chloride/Sodium Chloride (Normal Saline W/20 Meq Kcl) 20 meq in 1,000 mls @ 100 mls/hr IV .Q10H [facility] Stop: 01/11/19 04:59 Last Admin: 12/13/18 09:51 Dose: 100 mls/hr Documented by: Piperacillin Sod/Tazobactam (Sod 4.5 gm/ Dextrose) 120 mls @ 30 mls/hr IV Q8H [facility]; Protocol Stop: 12/22/18 05:59 Last Infusion: 12/13/18 10:02 Dose: Infused Documented by: Vancomycin HCl 1,500 mg/ (Sodium Chloride) 530 mls @ 200 mls/hr IV Q18H [facility] Stop: 12/21/18 01:59 Insulin Aspart (Novolog Flexpen) 0 units SC ACHS [facility] Stop: 01/11/19 07:29 Last Admin: 12/13/18 08:59 Dose: 5 units Documented by: Ipratropium [place] (Atrovent Hfa) 2 puffs INH QID PRN PRN Reason: Shortness Of Breath Or Wheezin Stop: 01/11/19 09:21 Levothyroxine Sodium (Synthroid) 250 mcg PO DAILYBB [facility] Stop: 01/11/19 06:29 Last Admin: 12/13/18 06:02 Dose: 250 mcg Documented by: Lorazepam (Ativan) 1 mg PO HS [facility] Stop: 01/11/19 20:59 Last Admin: 12/12/18 20:33 Dose: 1 mg Documented by: Magnesium Hydroxide (Milk Of Magnesia) 30 ml PO Q12H PRN PRN Reason: Constipation Stop: 01/11/19 03:34 Miconazole Nitrate (Desenex) 1 appln EXT PRN PRN PRN Reason: Affected Skin Folds Stop: 01/12/19 09:43 Miscellaneous (Order Awaiting Action) 1 ea N/A QS [facility] Stop: 01/11/19 07:59 Last Admin: 12/13/18 07:28 Dose: Not Given Documented by: Miscellaneous (Order Awaiting Action) 1 ea N/A QS [facility] Stop: 01/11/19 07:59 Last Admin: 12/13/18 07:28 Dose: Not Given Documented by: Miscellaneous (Carbohydrates For Hypoglycemia) 15 - 30 gm PO UD PRN PRN Reason: Hypoglycemia Treatment Stop: 01/11/19 03:34 Miscellaneous (Order Awaiting Action) 1 ea N/A QS [facility] Stop: 01/11/19 07:59 Last Admin: 12/13/18 07:28 Dose: Not Given Documented by: Miscellaneous Information (Consult) 1 ea N/A UD PRN PRN Reason: Consult Stop: 01/11/19 03:34 Miscellaneous Information (Consult) 1 ea N/A UD PRN PRN Reason: Consult Stop: 01/11/19 03:34 Montelukast Sodium (Singulair) 10 mg PO [facility] Stop: 01/11/19 20:59 Last Admin: 12/12/18 20:34 Dose: 10 mg Documented by: Multi-Ingredient Cream (Lacri-Lube) 1 appln OPB [facility] Stop: 01/11/19 20:59 Last Admin: 12/12/18 20:35 Dose: 1 appln Documented by: Multivitamins (Multivitamin Tab) 1 tab PO QAM [facility] Stop: 01/11/19 08:59 Last Admin: 12/13/18 07:43 Dose: 1 tab Documented by: Multivitamins/Minerals (Caltrate Plus) 1 tab PO BIDM [facility] Stop: 01/11/19 07:59 Last Admin: 12/13/18 07:28 Dose: 1 tab Documented by: Nystatin (Nystatin) 1 appln EXT BID PRN PRN Reason: Affected Skin Folds Stop: 01/11/19 03:34 Ondansetron HCl (Zofran) 4 mg IV Q6H PRN PRN Reason: Nausea Stop: 01/11/19 03:34 Pantoprazole Sodium (Protonix) 40 mg PO BID@0730,1630 [facility] Stop: 01/11/19 07:29 Last Admin: 12/13/18 07:27 Dose: 40 mg Documented by: Polyethylene Glycol (Miralax Powder Packet) 17 gm PO DAILY PRN PRN Reason: Constipation Stop: 01/11/19 03:34 Ranitidine HCl (Zantac) 150 mg PO BIDM [facility] Stop: 01/11/19 07:59 Last Admin: 12/13/18 07:28 Dose: 150 mg Documented by: Sertraline HCl (Zoloft) 25 mg PO QDB [facility] Stop: 01/11/19 07:29 Last Admin: 12/13/18 07:27 Dose: 25 mg Documented by: Tamsulosin HCl (Flomax) 0.4 mg PO QAM [facility] Stop: 01/11/19 08:59 Last Admin: 12/12/18 08:17 Dose: 0.4 mg Documented by: Tramadol HCl (Ultram) 50 mg PO Q6H PRN PRN Reason: Pain Stop: 01/11/19 03:34 Last Admin: 12/13/18 09:11 Dose: 50 mg Documented by: Trazodone HCl (Desyrel) 200 mg PO HS [facility] Stop: 01/11/19 20:59 Last Admin: 12/12/18 20:35 Dose: 200 mg Documented by: Vitamin B Complex (Vitamin B Complex) 1 tab PO QAM [facility] Stop: 01/11/19 08:59 Last Admin: 12/13/18 07:45 Dose: 1 tab Documented by: Resident Activity Tracking Resident Involvement: Resident Care Provided Care Provided: Adult Hospital Medicine (1) Sepsis Sepsis type: sepsis due to unspecified organism Qualified Code(s): A41.9 - Sepsis, unspecified organism
[2018-12-13 06:57] LABS: Calcium 7.8 mg/dl (8.5-10.1); Creatinine Clr Calc Pharmacy 61.9 ml/min; Est GFR (Non-African American) 61.2
[2018-12-13] MEDS ORDERED: VANCOMYCIN HCL 2,500 MG in SODIUM CHLORIDE 0.9% 500 ML IV ONE (07:00)
[2018-12-13] MEDS: SERTRALINE HCL 50 MG TABLET PO SCH (07:27)
[2018-12-13] MEDS: PANTOprazole 40 MG TAB PO SCH ×2 (07:27→16:52)
[2018-12-13] MEDS: GABAPENTIN 300 MG CAP PO SCH ×3 (07:27→16:53)
[2018-12-13] MEDS: DULOXETINE HCL 60 MG CAP PO SCH ×2 (07:28→11:05)
[2018-12-13] MEDS: CALCIUM 600MG + VIT D 400 IU TAB PO SCH ×2 (07:28→16:53)
--- NOTE | 2018-12-13 07:41 | Pharmacy Report ---
Pharmacy Abx Dose Short Note - Date of Service December 13, 2018 - Assessment & Plan Assessment 78 year old F receiving VANCOMYCIN + ZOSYN for cellulitis, possible UTI and possible PNA * CXR read as no consolidation * Negative influenza A/B * MRSA nasal swab is negative - lessening the likelihood of MRSA PNA * UA not suggestive of UTI (negative nitrate, negative LE, no pyuria) * Procal was elevated (0.76) Plan Vancomycin * Vancomycin was not initiated yesterday due to consult pharmacist error. Orders were not entered for 1500mg IV Q 18 hrs. * As a result a STAT loading dose : 2500mg (~23mg/kg) IV x 1 given this AM * Maint dose: 1500mg (~13.6mg/kg) IV Q 18 hours * Goal trough level for possible pulm infxn / sepsis : 15 to 20 mcg/mL * Will check trough level w/ 3rd dose * P'kinetic estimates: Vd ~0.55-0.6L/kg (due to BMI > 35), half-life ~16 hours Zosyn * BMI > 35, eCrCl > 20 * Zosyn 4.5gm ext-infusion Q 8 hrs indicated Pharmacy will continue to follow and will adjust dose/frequency as necessary. Thank you.
[2018-12-13] MEDS: CLOPIDOGREL BISULFATE 75 MG TAB PO SCH (07:43)
[2018-12-13] MEDS: MULTIVITAMIN TAB PO SCH (07:43)
[2018-12-13] MEDS: GLUCOSAMINE SULFATE 500 MG CAP PO SCH (07:44)
[2018-12-13] MEDS: FLUTICASONE PROPIONATE NA SPR 16 GM BTL SCH ×2 (07:44→20:58)
[2018-12-13] MEDS: ARTIFICIAL TEARS OP SCH ×3 (07:44→20:58)
[2018-12-13] MEDS: ASPIRIN 81 MG ECTAB PO SCH (07:44)
[2018-12-13] MEDS: VITAMIN B COMPLEX TAB PO SCH (07:45)
[2018-12-13] MEDS: HEPARIN SOD 5,000 UNIT/0.5 ML VIAL SQ SCH ×2 (07:45→20:59)
[2018-12-13] MEDS: ATENOLOL 50 MG TABLET PO SCH (07:46)
[2018-12-13] MEDS: INSULIN ASPART 100 UNITS/ML 3 ML PEN SC SCH ×4 (08:59→20:57)
[2018-12-13] MEDS ORDERED: PREMARIN VAG CRM 14 APPLN/30 GM TUBE PV SCH (09:00)
[2018-12-13] MEDS: TRAMADOL HCL 50 MG TABLET PO PRN (09:11)
[2018-12-13] MEDS ORDERED: MICONAZOLE NITRATE POWDER 43 GM EXT PRN (09:44)
[2018-12-13] MEDS: cephALEXin 500 MG CAP PO SCH ×2 (14:15→20:59)
[2018-12-13] MEDS: AMITRIPTYLINE HCL 100 MG TAB PO SCH (20:58)
[2018-12-13] MEDS: TRAZODONE HCL 100 MG TAB PO SCH (20:58)
[2018-12-13] MEDS: MONTELUKAST SODIUM 10 MG TABLET PO SCH (21:00)
[2018-12-13] MEDS: ARTIFICIAL TEARS OP OINT 3.5 GM TUBE OPB SCH (21:00)
[2018-12-13] MEDS: DONEPEZIL HCL 5 MG TAB PO SCH (21:01)
[2018-12-13] MEDS: LORazepam 1 MG TAB PO SCH (21:02)
[2018-12-14] MEDS ORDERED: VANCOMYCIN HCL 1,500 MG in SODIUM CHLORIDE 0.9% 500 ML IV SCH (02:00)
[2018-12-14] MEDS ORDERED: VANCOMYCIN TROUGH ONE (05:30)
[2018-12-14] MEDS: LEVOTHYROXINE SODIUM 125 MCG TABLET PO SCH (06:01)
[2018-12-14 06:43] LABS: Basophils # (auto) 0.02 K/uL (0-0.2); Basophils % (auto) 0.3 %; Eosinophils # (auto) 0.25 K/uL (0-0.5); Eosinophils % (auto) 3.9 %; Hematocrit (blood only) 28.1 % (37-47); Hemoglobin 9.8 g/dL (12.0-16.0); Immature Granulocytes # (auto) 0.02 K/uL (0.00-0.02); Immature Granulocytes % (auto) 0.3 %; Lymphocytes # (auto) 1.49 K/uL (1.2-3.4); Lymphocytes % (auto) 23.4 %; Mean Corpuscular Hgb Conc 34.9 g/dL (32-36); Mean Corpuscular Volume 86.7 fL (80-100); Mean Platelet Volume 9.2 fL (7.4-10.4); Monocytes # (auto) 0.55 K/uL (0.11-0.59); Monocytes % (auto) 8.6 %; Neutrophils # (auto) 4.03 K/uL (1.4-6.5); Neutrophils % (auto) 63.5 %; Platelet Count 174 K/uL (130-400); RDW Coefficient of Variation 14.4 % (11.5-14.5); RDW Standard Deviation 45.9 fL (36.4-46.3); Red Blood Count 3.24 M/uL (4.2-5.4); White Blood Count 6.36 K/uL (4.8-10.8)
[2018-12-14 07:00] LABS: BUN Creatinine Ratio 11.5 (10-20); Calcium 8.1 mg/dl (8.5-10.1); Creatinine Clr Calc Pharmacy 67.2 ml/min; Est GFR (African American) 78.3; Est GFR (Non-African American) 67.5; Potassium 3.6 mmol/L (3.5-5.1)
[2018-12-14] MEDS: RESTASIS - ORDER AWAITING ACTION SCH (07:13)
[2018-12-14] MEDS: GLUCOSAMINE SULFATE 500 MG CAP PO SCH (08:33)
[2018-12-14] MEDS: MULTIVITAMIN TAB PO SCH (08:33)
[2018-12-14] MEDS: GABAPENTIN 300 MG CAP PO SCH ×2 (08:33→12:43)
[2018-12-14] MEDS: CALCIUM 600MG + VIT D 400 IU TAB PO SCH (08:33)
[2018-12-14] MEDS: DULOXETINE HCL 60 MG CAP PO SCH ×2 (08:33→12:43)
[2018-12-14] MEDS: CLOPIDOGREL BISULFATE 75 MG TAB PO SCH (08:33)
[2018-12-14] MEDS: ASPIRIN 81 MG ECTAB PO SCH (08:34)
[2018-12-14] MEDS: VITAMIN B COMPLEX TAB PO SCH (08:34)
[2018-12-14] MEDS: ATENOLOL 50 MG TABLET PO SCH (08:34)
[2018-12-14] MEDS: SERTRALINE HCL 50 MG TABLET PO SCH (08:34)
[2018-12-14] MEDS: cephALEXin 500 MG CAP PO SCH (08:34)
[2018-12-14] MEDS: PANTOprazole 40 MG TAB PO SCH (08:34)
[2018-12-14] MEDS: ARTIFICIAL TEARS OP SCH ×2 (08:35→14:11)
[2018-12-14] MEDS: FLUTICASONE PROPIONATE NA SPR 16 GM BTL SCH (08:35)
[2018-12-14] MEDS: INSULIN ASPART 100 UNITS/ML 3 ML PEN SC SCH ×2 (08:40→12:42)
[2018-12-14] MEDS: HEPARIN SOD 5,000 UNIT/0.5 ML VIAL SQ SCH (08:41)
[2018-12-14] MEDS ORDERED: DOXYCYCLINE HYCLATE 100 MG CAP PO SCH (10:30)
--- NOTE | 2018-12-14 11:12 | Discharge Summary ---
Date of Service December 14, 2018 Admission HPI Per Admitting Provider Patient is a 78-year-old female resident of a local nursing facility, who had been noted to be mildly confused earlier in the day, seemed to improve during the day, and then was later found face down on the floor for an unknown period of time. Her daughter was called, and the patient was brought to the emergency department via EMS for assessment. In the emergency department, the patient is still somewhat confused and lethargic, but does answer questions. She has no specific complaints other than not feeling well, but did have an episode of emesis while on the ground at the facility. Most of the history is obtained from the daughter, who is with her in the ED, and by chart review. Admission Exam Per Admitting Provider The patient is awake, lethargic, normocephalic and atraumatic, lying in bed and in no acute distress. HEENT--PERRL, EOMI, mucous membranes and oropharynx dry. Neck--supple. No JVD. No bruits. Thyroid normal, trachea midline, no adenopathy. Heart--normal S1 and S2. No murmurs, rubs or gallops. Lungs--few coarse breath sounds bilaterally, decreased breath sounds left base. Abdomen--normal bowel sounds and soft. Nontender. Nondistended. Extremities--no cyanosis or clubbing. No edema. There are good distal pulses b/l. Dermatologic--skin is dry Neurologic--cranial nerves II through XII grossly intact. Rheumatologic--limited exam Psychiatric--lethargic Principal Diagnosis Lymphangitis Discharge Exam Constitutional + morbidly obese, cooperative and comfortable Respiratory Auscultation: lungs clear to auscultation bilaterally and + diminished lung sounds Cardiovascular RRR, no murmur, no edema Gastrointestinal (Abdomen) Percussion/Palpation: abdomen soft; abdomen nontender Skin light erythema of left calf, streaking up medial aspect of thigh. Erythema appears slightly more diffuse than yesterday, but patient reports less tenderness. Discharge Data Allergies Allergy/AdvReac Type Severity Reaction Status Date / Time KODAK Inhibitors Allergy Unknown Unknown Verified 12/12/18 01:47 benson Allergy Unknown Verified 12/12/18 01:47 grass pollen Allergy Unknown Verified 12/12/18 01:47 perfume Allergy Unknown Verified 12/12/18 01:47 Consultations 12/12/18 01:16 ED Decision to Admit Stat 12/12/18 03:35 Consult Case Management - Discharge Planning Routine Ordered Studies 12/11/18 23:09 CT cervical spine wo con Urgent CT head/brain wo con Urgent 12/11/18 23:24 US venous doppler LE Urgent Hospital Course (1) Confusion: Ms. Rivero is a 78 year old female with a past medical history of DM II, peripheral neuropathy, history of TIA, history of pulmonary embolism in 2010 (not on anticoagulation), chronic interstitial cystitis likely due to incontinence and vaginal prolapse, iron deficiency anemia, hyponatremia, HTN, chronic diastolic CHF, nonobstructive CAD, hypothyroidism, GERD, IBS, depression, asthma, COPD, YARI on CPAP who presented to [facility] after she was found on the floor at her residential. - Multifactorial - underlying dementia w/metabolic encephalopathy caused by infection of left leg and dehydration - CT of head was negative for acute bleeding - resolved upon discharge (2) Cellulitis of left leg: - moreso a lymphangitis picture than cellulitis - WCC back to normal - bcx negative - initially treated with empiric vancomycin IV and Zosyn IV. This was transitioned to 500mg PO Keflex tid, however erythema appears slightly more diffuse on day of discharge, will change keflex to doxycycline to cover for MRSA. Prescribed 100mg BID doxycycline x7 days to complete a 10 day course of abx - recommend f/u with PCP if not improving on doxycycline - b/l lower extremity venous Dopplers negative - PT/OT recommended continuation of PT given pt is weaker than baseline after infection & hospital stay - this will be arranged at [facility] (3) Sepsis: (4) CAD (coronary artery disease): - Continue aspirin 81 mg daily, atenolol 50 mg every morning, clopidogrel 75 mg every morning. - metolazone and potassium chloride held on admission given hypotension. Patient takes 2.5mg metolazone twice a week & daily prn, resume on d/c (5) Diabetic peripheral neuropathy associated with type 2 diabetes mellitus: - Continue gabapentin (6) Chronic interstitial cystitis: - Continue usual supportive medications (7) Dementia: - Dementia/anxiety with depression - continue regimen of amitriptyline 100 mg p.o. at bedtime, donepezil 5 mg at bedtime, duloxetine 60 mg p.o. twice daily, Lorazepam 1 mg at bedtime, sertraline 25 mg in the morning and trazodone 200 mg at bedtime. (8) Hypothyroidism (acquired): - Continue levothyroxine sodium 250 mcg every morning. (9) GERD (gastroesophageal reflux disease): (10) Hypertension: - As noted above. (11) Anxiety with depression: - As noted. (12) YARI (obstructive sleep apnea): - continue home CPAP (13) COPD (chronic obstructive pulmonary disease): - continue home inhalers. Ordered as scheduled as patient tends not to ta ke them at home (14) Diabetes: - HbA1C was 6.1 in March 2018 - not on any home medications (15) Hyponatremia: - Chronically in the upper 120s. - sodium level 134 on day of d/c Total Time Total Time Spent Total Time Spent (In Minutes): <30 Discharge Plan Discharge Items Patient Disposition: [facility] Reason For Visit: CELLULITIS OF RLE, HYPOXIA, URI, PL EFFUSION Discharge Diagnosis: Cellulitis Condition: Fair Discharge Goals: Decrease discomfort, Improve function and Increase independence Activity: Resume your previous activity Non-emergency contact: Primary Care Provider Call non-emergency contact if: you have any medication questions, your pain is worsening and you have a fever Follow-up/Referrals: Jame Ruth MD [Primary Care Provider] - Diet: Carb Consistent or DM2 Addtl Provider Instructions: Ms. Rivero, you were admitted to [facility] due to an infection in the skin and lymph node system of your left leg. 1) Infection - we treated you with IV antibiotics. We will be discharging you home on an antibiotic called doxycycline to take twice a day for the 7 days. This will complete the course of antibiotics for your infection. Sometimes antibiotics can cause a stomach upset, and therefore we recommend that you take probiotics or yogurt with live marcia while you are on the antibiotics. - if you have worsening pain in your leg, fever, chills, or notice the redness spreading, please call your doctor 2) Weakness -infection and being in the hospital can make you a little weaker sometimes. Our physical and occupational therapists have recommended some rehabilitation while you are back home at [facility]. This will be arranged for you We have not made changes to any of your other medications. You can take them as prescribed. Prescriptions: New doxycycline hyclate 100 mg tablet 100 mg PO BID 7 Days Qty: 14 RF: 0 Continued donepezil 5 mg Tablet 5 mg PO HS RF: 0 amitriptyline 100 mg Tablet 100 mg PO HS RF: 0 sertraline 25 mg Tablet 25 mg PO QAM RF: 0 tramadol 50 mg Tablet 50 mg PO Q6H PRN (Reason: Pain) RF: 0 duloxetine 60 mg Capsule,Delayed Release(Dr/Ec) 60 mg PO BID RF: 0 dextromethorphan polistirex [Delsym 12 hour] 30 mg/5 mL Suspension,Extended Rel 12 Hr 10 ml PO Q12H PRN (Reason: Cough) RF: 0 nystatin 100,000 unit/gram Powder 1 applic TOPICAL BID RF: 0 magnesium hydroxide [Milk of Magnesia] 400 mg/5 mL Suspension 2 - 4 tbsp PO DAILY PRN (Reason: Constipation) RF: 0 polyethylene glycol 3350 [Miralax] 17 gram Powder In Packet 17 g PO DAILY PRN (Reason: Constipation) RF: 0 acetaminophen [Tylenol Extra Strength] 500 mg Tablet 1,000 mg PO Q8 PRN (Reason: Pain) RF: 0 Restasis 0.05 % Dropperette 1 drp OPHTHALMIC (EYE) BID RF: [address]opraz[address] For Susp In Packet 40 mg PO BIDM RF: 0 guaifenesin [Mucinex] 600 mg Tablet Extended Release 12hr 600 mg PO Q12H PRN (Reason: Congestion) RF: 0 spironolactone 25 mg Tablet 25 mg PO QAM RF: 0 atenolol 50 mg Tablet 50 mg PO QAM RF: 0 loperamide 2 mg Capsule 1 mg PO DIRECTED MDD 3 per day PRN (Reason: Diarrhea) RF: 0 methenamine hippurate 1 gram Tablet 1 g PO HS RF: 0 tamsulosin [Flomax] 0.4 mg Capsule 0.4 mg PO QAM RF: 0 potassium chloride 20 mEq Tablet,Er Particles/Crystals 60 meq PO BIDM RF: 0 Myrbetriq 50 mg Tablet Extended Release 24 Hr 50 mg PO QAM RF: 0 levothyroxine 125 mcg Tablet 250 mcg PO QAM RF: 0 metolazone 2.5 mg Tablet 2.5 mg PO 2XWK RF: 0 vitamin B complex Tablet 1 tab PO QAM RF: 0 ranitidine HCl 150 mg Tablet 150 mg PO BIDM RF: 0 trazodone 100 mg Tablet 200 mg PO HS RF: 0 clopidogrel [Plavix] 75 mg Tablet 75 mg PO QAM RF: 0 mometasone [Nasonex] 50 mcg/actuation [place],Non-Aerosol 1 spray INTRANASAL BID RF: 0 montelukast [Singulair] 10 mg Tablet 10 mg PO HS RF: 0 multivitamin Tablet 1 tab PO QAM RF: 0 metolazone 2.5 mg tablet 2.5 mg PO DAILY PRN (Reason: Weight Gain) RF: 0 ketoconazole [Nizoral] 2 % Shampoo 1 applic topical DAILY RF: 0 glucosamine sulfate [Glucosamine] 500 mg Tablet 1,500 mg PO QAM RF: 0 aspirin 81 mg Tablet,Delayed Release (Dr/Ec) 81 mg PO QAM RF: 0 ferrous sulfate [iron] 325 mg (65 mg iron) Tablet 325 mg PO 3XWK RF: 0 conjugated estrogens 0.625 mg/gram cream 1 applic topical 3XWK RF: 0 gabapentin 300 mg capsule 300 mg PO TIDM RF: 0 albuterol sulfate [ProAir HFA] 90 mcg/actuation Hfa Aerosol Inhaler 2 puff INHALATION QID PRN (Reason: Shortness Of Breath Or Wheezing) RF: 0 Systane (PF) 0.4-0.3 % Dropperette 1 drp OPHTHALMIC (EYE) TID RF: 0 Caltrate 600 + D 600 mg (1,500 mg)-800 unit Tablet,Chewable 1 tab PO BIDM RF: 0 lorazepam 1 mg Tablet 1 mg PO HS RF: 0 Reguloid Powder 1 tbsp PO BID RF: 0 nystatin 100,000 unit/gram Cream 1 applic TOPICAL BID PRN (Reason: excoriation) RF: 0 magnesium sulfate (bulk) [Epsom Salt] 100 % Crystals 1 applic TOPICAL DAILY RF: 0 ketoconazole 2 % Cream 1 applic TOPICAL DAILY PRN (Reason: flares) RF: 0 Systane Gel 0.3 % Gel 1 drp OPB HS RF: 0 Calmoseptine 0.44-20.6 % Ointment 1 applic TOPICAL TID PRN (Reason: skin breakdown prevention) RF: 0 Changed Atrovent HFA 17 mcg/actuation Hfa Aerosol Inhaler 2 puff INHALATION QID Qty: 0 RF: 0 Stand-Alone Forms: [facility] Discharge Orders: Discharge Order (Routine); Ordered 12/14/18 Ordered By: Lina Abraham Admission Data Admit Date/Time: 12/12/18 02:11 Attending Provider: Diomedes Iyer Admit Provider: Kt Bauman Primary Care Provider: Jame Ruth V. Other Providers: Kt Bauman Service: Telemetry Medical Other Interventions: Discharge Summary Assessment (RN) Last Done: 12/14/18 12:53 DC Date/Time DO NOT enter until pt leaves facility: 12/14/18 15:08 Supervising Physician Co-Signing Physician Notes I personally examined the patient and verified all posdaa points of history and exam, discussed case, and agree with decision making with Dr Abraham. Feeling better, feels up to going to [facility]. updated dtr. Vitals noted, in general she is in no distress. Breathing is unlabored, she does appear quite fatigued. Mucous membranes moist. left leg with some maroon erythema. Lymphangitis with sepsisimproving overall - today maybe sl more red, unclear if just residual/resolving inflammation or if needing to cover for nosocomial pathogens - still quite safe for dc with follow up --> will send on doxy Deconditioning/weaknessoutpt PT at [facility] dyspnea - dtr asks that we give trial to ordering inhalers scheduled as she doesn't believe pt actually taking them at [facility], then also asks for referral to pulm - all quite reasonable. DVT prophylaxisheparin subcu utilized while here. Resident Activity Tracking Resident Involvement: Resident Care Provided Care Provided: Adult Hospital Medicine
[2018-12-15] MEDS ORDERED: VANCOMYCIN TROUGH ONE (13:30)
== END 2018-12-14 15:08 | disposition home or self-care (01) | DRG 871 ==
LOC: ED 22:53 → 2N 12-12 02:11 → SUATTDRO 12-12 02:11 → 2N 12-12 02:39

== ENCOUNTER 2018-12-16 00:53 | Inpatient (IN) ==
[2018-12-16 01:40] LABS: Basophils # (auto) 0.01 K/uL (0-0.2); Basophils % (auto) 0.1 %; Eosinophils # (auto) 0.31 K/uL (0-0.5); Eosinophils % (auto) 2.7 %; Hemoglobin 10.1 g/dL (12.0-16.0); Immature Granulocytes # (auto) 0.11 K/uL (0.00-0.02); Lymphocytes # (auto) 1.99 K/uL (1.2-3.4); Lymphocytes % (auto) 17.4 %; Mean Corpuscular Hgb Conc 33.7 g/dL (32-36); Mean Corpuscular Volume 86.5 fL (80-100); Mean Platelet Volume 8.9 fL (7.4-10.4); Monocytes # (auto) 1.19 K/uL (0.11-0.59); Monocytes % (auto) 10.4 %; Neutrophils # (auto) 7.83 K/uL (1.4-6.5); Neutrophils % (auto) 68.4 %; Platelet Count 213 K/uL (130-400); RDW Coefficient of Variation 14.4 % (11.5-14.5); RDW Standard Deviation 45.2 fL (36.4-46.3); Red Blood Count 3.47 M/uL (4.2-5.4); White Blood Count 11.44 K/uL (4.8-10.8)
[2018-12-16 02:02] LABS: Alanine Aminotransferase 23 U/L (12-78); Aspartate Aminotransferase 19 U/L (15-37); BUN Creatinine Ratio 11.3 (10-20); Bilirubin Direct 0.1 mg/dl (0-0.2); Blood Urea Nitrogen 10 mg/dl (7-18); Calcium 8.9 mg/dl (8.5-10.1); Carbon Dioxide 30 mmol/L (21-32); Chloride 93 mmol/L (98-107); Creatinine Clr Calc Pharmacy 69.4 ml/min; Est GFR (Non-African American) 64.7; Glucose 123 mg/dl (70-99); Magnesium 1.6 mg/dl (1.8-2.4); Sodium 129 mmol/L (136-145)
[2018-12-16 02:05] LABS: Alkaline Phosphatase 63 U/L (45-117); Bilirubin,Total 0.4 mg/dl (0.2-1); C Reactive Protein 4.74 mg/dl (0-0.29); Troponin I < 0.015 ng/ml (0-0.045)
[2018-12-16] MEDS ORDERED: PIPERACILLIN/TAZOBACTAM 4.5 GM/120 ML BAG IV ONE (02:41)
[2018-12-16] MEDS ORDERED: PIPERACILL/TAZOBAC CONSULT ACTIVE PRN ×2 (02:41→04:50)
[2018-12-16] MEDS ORDERED: VANCOMYCIN HCL 2,500 MG in SODIUM CHLORIDE 0.9% 500 ML IV ONE (02:41)
[2018-12-16] MEDS ORDERED: VANCOMYCIN CONSULT ACTIVE PRN ×2 (02:41→04:50)
--- NOTE | 2018-12-16 04:23 | History & Physical Report ---
Date of Service December 16, 2018 Assessment & Plan (1) Confusion: Confusion associated with dementia that is aggravated by metabolic encephalopathy associated with lower extremity cellulitis and lymphangitis. Present on Admission?: Yes (2) Cellulitis of left leg: Cellulitis of left leg with ascending lymphangitis-- Worse than when I saw her upon admission on 12/12-- Vancomycin IV and Zosyn IV. Follow-up clinical examination closely. Would consider her a failure of outpatient treatment. Present on Admission?: Yes (3) Ascending lymphangitis: As above. Present on Admission?: Yes (4) Sepsis: Patient meets septic criteria as noted before. Present on Admission?: Yes (5) CAD (coronary artery disease): CAD/hypertension-- Continue aspirin, atenolol, clopidogrel. Will hold diuretics metolazone. Present on Admission?: Yes (6) Hypothyroidism (acquired): Continue levothyroxine sodium 250 mcg every morning Present on Admission?: Yes (7) Hypertension: As above. Present on Admission?: Yes (8) Dementia: Her confusion is as before, likely associated with underlying dementia and metabolic encephalopathy in addition. Present on Admission?: Yes (9) COPD (chronic obstructive pulmonary disease): Pro-air 2 puffs 4 times daily as needed. Atrovent HFA 2 puffs 4 times daily. Mucinex 600 mg p.o. every 12 hours as needed Present on Admission?: Yes (10) Diastolic CHF, chronic: We will hold diuretics, as patient looks dry. Will gently hydrate with IV fluids. We will send a serum and urine osmolality to further assess chronic hyponatremia Present on Admission?: Yes (11) UTI (urinary tract infection): Urine C&S was contaminated last time it was obtained. Treat empirically with antibiotics as above. Present on Admission?: Yes (12) Hypomagnesemia: Give magnesium sulfate 2 g IV for entrance magnesium of 1.6. Low magnesium is likely contributing to her lower extremity discomfort Present on Admission?: Yes (13) Anxiety with depression: Continue amitriptyline, duloxetine, gabapentin, lorazepam, sertraline and trazodone. Present on Admission?: Yes (14) YARI (obstructive sleep apnea): (15) GERD (gastroesophageal reflux disease): Continue ranitidine Hold pantoprazole due to hypomagnesemia and shortage Present on Admission?: Yes History of Present Illness Chief Complaint: Patient presents to the emergency department with confusion and worsening left lower extremity redness, pain and warmth after being discharged from hospital on 12/14. Primary Care Provider: Jame Ruth MD The patient is a 78-year-old female resident of [facility], who was admitted to [facility] from 12/12-12/14 for lower extremity cellulitis with lymphangitis. She was discharged on Keflex and doxycycline orally, but has worsened significantly during that time, and presents back to the emergency department for assessment. Allergies Allergy/AdvReac Type Severity Reaction Status Date / Time KODAK Inhibitors Allergy Unknown Unknown Verified 12/16/18 02:05 benson Allergy Unknown Verified 12/16/18 02:05 grass pollen Allergy Unknown Verified 12/16/18 02:05 perfume Allergy Unknown Verified 12/16/18 02:05 Home Medications Home Medications Medication Instructions Recorded Confirmed Type Myrbetriq 50 mg PO QAM 05/16/18 12/16/18 History Restasis 1 drp OPHTHALMIC (EYE) BID 05/16/18 12/16/18 History acetaminophen [Tylenol Extra 1,000 mg PO Q8 PRN 05/16/18 12/16/18 History Strength] amitriptyline 100 mg PO HS 05/16/18 12/16/18 History atenolol 50 mg PO QAM 05/16/18 12/16/18 History clopidogrel [Plavix] 75 mg PO QAM 05/16/18 12/16/18 History dextromethorphan polistirex 10 ml PO Q12H PRN 05/16/18 12/16/18 History [Delsym 12 hour] donepezil 5 mg PO HS 05/16/18 12/16/18 History duloxetine 60 mg PO BID 05/16/18 12/16/18 History guaifenesin [Mucinex] 600 mg PO Q12H PRN 05/16/18 12/16/18 History levothyroxine 250 mcg PO QAM 05/16/18 12/16/18 History loperamide 1 mg PO DIRECTED PRN MDD 3 per 05/16/18 12/16/18 History day magnesium hydroxide [Milk of 2 - 4 tbsp PO DAILY PRN 05/16/18 12/16/18 History Magnesia] methenamine hippurate 1 g PO QPM 05/16/18 12/16/18 History metolazone 2.5 mg PO 2XWK 05/16/18 12/16/18 History mometasone [Nasonex] 1 spray INTRANASAL BID 05/16/18 12/16/18 History montelukast [Singulair] 10 mg PO HS 05/16/18 12/16/18 History nystatin 1 applic TOPICAL BID 05/16/18 12/16/18 History pantoprazole 40 mg PO BIDM 05/16/18 12/16/18 History polyethylene glycol 3350 [Miralax] 17 g PO DAILY PRN 05/16/18 12/16/18 History potassium chloride 60 meq PO BIDM 05/16/18 12/16/18 History ranitidine HCl 150 mg PO BIDM 05/16/18 12/16/18 History sertraline 25 mg PO QAM 05/16/18 12/16/18 History spironolactone 25 mg PO QAM 05/16/18 12/16/18 History tamsulosin [Flomax] 0.4 mg PO QAM 05/16/18 12/16/18 History tramadol 50 mg PO Q6H PRN 05/16/18 12/16/18 History trazodone 200 mg PO HS 05/16/18 12/16/18 History vitamin B complex 1 tab PO QAM 05/16/18 12/16/18 History Caltrate 600 + D 1 tab PO BIDM 09/14/18 12/16/18 History Systane (PF) 1 drp OPHTHALMIC (EYE) TID 09/14/18 12/16/18 History albuterol sulfate [ProAir HFA] 2 puff INHALATION QID PRN 09/14/18 12/16/18 History aspirin 81 mg PO QAM 09/14/18 12/16/18 History conjugated estrogens 1 applic TOPICAL 3XWK 09/14/18 12/16/18 History ferrous sulfate [iron] 325 mg PO 3XWK 09/14/18 12/16/18 History gabapentin 300 mg PO TIDM 09/14/18 12/16/18 History glucosamine sulfate [Glucosamine] 1,500 mg PO QAM 09/14/18 12/16/18 History ketoconazole [Nizoral] 1 applic TOPICAL DAILY 09/14/18 12/16/18 History metolazone 2.5 mg PO DAILY PRN 09/14/18 12/16/18 History multivitamin 1 tab PO QAM 09/14/18 12/16/18 History Calmoseptine 1 applic TOPICAL TID PRN 12/12/18 12/16/18 History Reguloid 1 tbsp PO BID 12/12/18 12/16/18 History Systane Gel 1 drp OPB HS 12/12/18 12/16/18 History ketoconazole 1 applic TOPICAL DAILY PRN 12/12/18 12/16/18 History lorazepam 1 mg PO HS 12/12/18 12/16/18 History magnesium sulfate (bulk) [Epsom 1 applic TOPICAL DAILY 12/12/18 12/16/18 History Salt] nystatin 1 applic TOPICAL BID PRN 12/12/18 12/16/18 History Atrovent HFA 2 puff INHALATION QID #0 g 12/14/18 12/16/18 Rx doxycycline hyclate 100 mg PO BID 7 Days #14 tab 12/14/18 12/16/18 Rx Past Med/Surg History Medical History Morbid obesity with BMI of 50.0-59.9, adult YARI (obstructive sleep apnea) Hyponatremia Diastolic CHF, chronic CAD (coronary artery disease) Chronic interstitial cystitis Sepsis (Acute) Confusion (Acute) UTI (urinary tract infection) (Acute) Diabetes (Chronic) TIA (transient ischemic attack) (Resolved) Pulmonary embolism (Resolved) UTI (urinary tract infection) (Resolved) Cardiac valve prolapse (Chronic) Balance disorder Basal pneumonia of both lungs (Acute) Diabetic peripheral neuropathy associated with type 2 diabetes mellitus Foot deformity Foot pain Loss of sensation Family History Other Family history non-contributory Social History Communication Ability: Effective Beliefs That Will Affect Care: None marital status: / Current Living Situation: Personal Care Facility Current Living Situation Comment: [facility] current occupational status: retired Feels Safe at Home: Yes Smoking Status: Never smoker Hx Alcohol Use: No Hx Substance Use: No Review of Systems Review of systems is somewhat limited due to patient's present medical condition Physical Exam Vital Signs (Past 24 Hours): Last Vital Signs Temp 36.6 C 12/16/18 01:03 Pulse 73 12/16/18 01:03 BP 139/74 12/16/18 01:03 Pulse Ox 97 12/16/18 01:03 Physical Exam: The patient is lethargic, minimally responsive, normocephalic and atraumatic, lying in bed and in no acute distress. HEENT--PERRL, EOMI, mucous membranes and oropharynx dry. Neck--supple. No JVD. No bruits. Thyroid normal, trachea midline, no a denopathy. Heart--normal S1 and S2. No murmurs, rubs or gallops. Lungs--clear bilaterally, no respiratory distress, no accessory muscle use. Abdomen--normal bowel sounds and soft. Nontender. Nondistended, no hernias or masses, no organomegaly. Extremities/dermatologic--left lower extremity with increased area of redness, warmth, swelling and pain over calf anteriorly and posteriorly, with erythema tracking up medially along the thigh. Neurologic--cranial nerves II through XII grossly intact. Rheumatologic--limited exam Psychiatric--lethargic Results & Data Laboratory Results Laboratory Results WBC 11.44 K/uL (4.8-10.8) H 12/16/18 01:26 RBC 3.47 M/uL (4.2-5.4) L 12/16/18 01:26 Hgb 10.1 g/dL (12.0-16.0) L 12/16/18 01:26 Hct 30.0 % (37-47) L 12/16/18 01:26 MCV 86.5 fL (80-100) 12/16/18 01:26 MCH 29.1 pg (25-34) 12/16/18 01:26 MCHC 33.7 g/dL (32-36) 12/16/18 01:26 RDW Std Deviation 45.2 fL (36.4-46.3) 12/16/18 01:26 RDW Coeff of Chalino 14.4 % (11.5-14.5) 12/16/18 01:26 Plt Count 213 K/uL (130-400) 12/16/18 01:26 MPV 8.9 fL (7.4-10.4) 12/16/18 01:26 Immature Gran % (Auto) 1.0 % 12/16/18 01:26 Neut % (Auto) 68.4 % 12/16/18 01:26 Lymph % (Auto) 17.4 % 12/16/18 01:26 Z[place]ata % (Auto) 10.4 % 12/16/18 01:26 Eos % (Auto) 2.7 % 12/16/18 01:26 Baso % (Auto) 0.1 % 12/16/18 01:26 Immature Gran # (Auto) 0.11 K/uL (0.00-0.02) H 12/16/18 01:26 Neut # (Auto) 7.83 K/uL (1.4-6.5) H 12/16/18 01: Lymph # (Auto) 1.99 K/uL (1.2-3.4) 12/16/18 01:26 Zapata # (Auto) 1.19 K/uL (0.11-0.59) H 12/16/18 01:26 Eos # (Auto) 0.31 K/uL (0-0.5) 12/16/18 01:26 Baso # (Auto) 0.01 K/uL (0-0.2) 12/16/18 01:26 Sodium 129 mmol/L (136-145) L 12/16/18 01:26 Potassium 4.0 mmol/L (3.5-5.1) 12/16/18 01:26 Chloride 93 mmol/L (98-107) L 12/16/18 01:26 Carbon Dioxide 30 mmol/L (21-32) 12/16/18 01:26 Anion Gap 6.0 (3-11) 12/16/18 01:26 BUN 10 mg/dl (7-18) 12/16/18 01:26 Creatinine 0.86 mg/dl (0.6-1.2) 12/16/18 01:26 Est Cr Clr Drug Dosing 69.4 ml/min 12/16/18 01:26 Est GFR ( Amer) 75.0 12/16/18 01:26 Est GFR (Non-Af Amer) 64.7 12/16/18 01:26 BUN/Creatinine Ratio 11.3 (10-20) 12/16/18 01:26 Glucose 123 mg/dl (70-99) H 12/16/18 01:26 Osmolality 270 mOsm/kg (280-300) L 12/16/18 01:26 Lactate 0.9 mmol/L (0.4-2.0) 12/16/18 01:26 Calcium 8.9 mg/dl (8.5-10.1) 12/16/18 01:26 Magnesium 1.6 mg/dl (1.8-2.4) L 12/16/18 01:26 Total Bilirubin 0.4 mg/dl (0.2-1) 12/16/18 01:26 Direct Bilirubin 0.1 mg/dl (0-0.2) 12/16/18 01:26 AST 19 U/L (15-37) 12/16/18 01:26 ALT 23 U/L (12-78) 12/16/18 01:26 Alkaline Phosphatase 63 U/L (45-117) 12/16/18 01:26 Troponin I < 0.015 ng/ml (0-0.045) 12/16/18 01:26 C-Reactive Protein 4.74 mg/dl (0-0.29) H 12/16/18 01:26 Total Protein 7.0 gm/dl (6.4-8.2) 12/16/18 01:26 Albumin 3.0 gm/dl (3.4-5.0) L 12/16/18 01:26 Procalcitonin 0.10 ng/ml (0-0.5) 12/16/18 01:26 . Code Status & VTE Plan Code Status Full code VTE Prophylaxis Plan VTE Prophylaxis will be ordered: Yes (1) Sepsis Sepsis type: sepsis due to unspecified organism Qualified Code(s): A41.9 - Sepsis, unspecified organism
[2018-12-16] MEDS ORDERED: PIPERACILLIN/TAZOBACTAM 4.5 GM in DEXTROSE 5% 100 ML IV SCH (04:50)
[2018-12-16] MEDS ORDERED: VANCOMYCIN HCL 1,000 MG in SODIUM CHLORIDE 0.9% 250 ML IV SCH (04:50)
[2018-12-16] MEDS ORDERED: ACETAMINOPHEN 325 MG TAB PO PRN (04:50)
[2018-12-16] MEDS ORDERED: MENTHOL-ZINC OXIDE 360 APPLN/120 GM TUBE EXT PRN (04:50)
[2018-12-16] MEDS ORDERED: MAGNESIUM HYDROXIDE SUSP 30 ML UDC PO PRN (04:50)
[2018-12-16] MEDS ORDERED: ALBUTEROL HFA 8 GM INHALER INH PRN (04:50)
[2018-12-16] MEDS ORDERED: POLYETHYLENE (MIRALAX) 17 GM PACK PO PRN (04:50)
--- NOTE | 2018-12-16 06:01 | Ultrasound Report ---
US venous doppler LE LT HISTORY: 78 years-old Female left leg swelling, worsening, history PE acute left leg pain and swelli ng COMPARISON: Duplex venous Doppler study 12/12/2018 TECHNIQUE: Multiple real-time sonographic images of the left lower extremity deep venous structures w ere obtained assessing grayscale appearance, color and spectral flow FINDINGS: Normal flow, phasicity, compressibility and augmentation of the left lower extremity deep venous stru ctures. Study is limited secondary to patient body habitus. The calf vessels vessels are seen. IMPRESSION: No sonographic evidence of deep venous thrombosis. The above report was generated using voice recognition software. It may contain grammatical, syntax o r spelling errors. Electronically signed by: Juan Alberto Baird M.D. 12/16/2018 5:59 AM
--- NOTE | 2018-12-16 06:16 | Emergency Department Note ---
Entered by Nkechi Lomeli acting as a scribe for ED Provider Note Name: Jacqui Rivero Age: 78 Arrives Via: EMS Informant: Patient CC: Leg Injury/Pain HPI:w The patient is a 78 year old female who presents to the Emergency Room with complaints of worsening left leg pain starting 2 days ago. The patient states that she was recently discharged from the hospital with lymphangitis, cellulitis, and sepsis. She reports that they discharged her on Keflex BID, but it hasn't been helping. She states that since leaving, her left leg has become more swollen, more red, and more painful. She notes that the leg has been more weak as well. The patient denies fever and vomiting. ROS: See above HPI for pertinent positives & negatives. A total of 10 systems reviewed and were otherwise negative. Past Medical History: Diabetes, Cardiac valve prolapse, PE, TIA, Sepsis, CHF, CAD, YARI, Chronic interstitial cystitis, GERD, Osteoporosis, Anemia, Dementia, Hypothyroidism, HTN, COPD, Anxiety, Depression Past Surgical History: None Family History: Non-contributory Social History: The patient is and lives in a personal care facility. She is retired. Home Medications: See extensive below Allergies KODAK Inhibitors, Plata, Grass Pollen, Perfume Physical: Vitals: Temperature: 36.6, Temperature Source: Oral, Pulse Rate: 73, Blood Pressure: 139/74, Blood Pressure Mean: 95, O2 Saturations: 97% on Room Air Exam: GENERAL: Patient is morbidly obese, has mild dementia, and is in minimal distress. EYES: No scleral icterus, unremarkable pupils. ENT: Mucous membranes moist, no nasal congestion. NECK: No masses appreciated, no meningismus, trachea is midline. RESPIRATORY: No dyspnea. Clear to auscultation and equal bilaterally. No wheeze, no rhonchi. CARDIOVASCULAR: Regular rate and rhythm. No murmurs, rubs, gallops appreciated. GASTROINTESTINAL: Abdomen soft, non-tender, no peritonitis. Bowel sounds positive. No masses appreciated. BACK: No midline tenderness, no CVA tenderness EXTREMITIES: Normal motion all extremities, no cyanosis, no edema. NEUROLOGIC: Alert and oriented, no acute motor or sensory deficits, no focal weakness, cranial nerves grossly intact. SKIN: Extensive erythematous cellulitis of the left lower extremity. Both sides with areas of tenderness to palpation. No crepitus appreciated. Streaking along the entire inner portion of the leg to the groin with tenderness over the left groin region. No adenopathy able to be appreciated. Good pulses in left foot. No jaundice, no diaphoresis. ED Course: Prior Medical Record, Triage/Nursing Notes, Medications, Allergies reviewed by Me Vital Signs: reviewed and remarkable for wnl Labs: Reviewed and remarkable for elevated CRP Interventions: Saline Lock, Zosyn 4.5gm IV, Vanco 2.5gm IV Imaging: X ray results are stated below per my interpretation: Tib Fib Left: 2 view: Modest soft tissue swelling without clear evidence of sub-q air. No FB. No fracture no dislocation. [employer] Radiologist interpretation reviewed by me: US Doppler left leg limited though no overt DVT appreciated EKG: None Consults: 0214: I reviewed the patient's case with Dr. Lesia SCOTT Hospitalist. He will evaluate the patient for further management. He requested that I start the patient on Zosyn and Vancomycin. Reassessments/Times: 0059: The patient was evaluated in room C4, and a complete history and physical examination were performed. 0124: I reevaluated the patient and IV team was at bedside. 0214: I reviewed the patient's case with Dr. Lesia SCOTT Hospitalist. He will evaluate the patient for further management. He requested that I start the patient on Zosyn and Vancomycin. 0232: I went to reevaluate the patient, but she was at ultrasound. 0310: I reevaluated the patient and updated her on her test results. She has no current complaints. I discussed the treatment plan with her. She verbally agrees and understands. Blood pressure: Elevated - Further Management by Hospitalist. Disposition: Hospitalization Differentials: Differential diagnosis includes etiologies such as cellulitis, abscess, MRSA infection, DVT, necrotizing fasciitis, dermatitis, drug eruption, as well as others were entertained. Medical Decision Making: Mildly demented female with large left leg cellulitis which has rapidly worsened since discharge while on Keflex and Doxy. Given Zosyn/Vanco. US without clear evidence of DVT. CRP elevation though lactate and WBC OK currently. no evidence of sub q air by xray nor exam. She clearly has failed outpatient management at this time and will need to come in for further management. Hospitalist in to evaluate and agrees with need to hospitalization. Impression: Cellulitis of Left Leg Acute Hyponatremia Failure of Outpatient Treatment Mook Anne MD The scribe's documentation has been prepared under my direction and personally reviewed by me in its entirety. I confirm that the note above accurately reflects all work, treatment, procedures, and medical decision making performed by me. Impression & Plan Cellulitis of left leg, Acute hyponatremia, Failure of outpatient treatment Past Med/Surg History Medical History Morbid obesity with BMI of 50.0-59.9, adult YARI (obstructive sleep apnea) Hyponatremia Diastolic CHF, chronic CAD (coronary artery disease) Chronic interstitial cystitis Sepsis (Acute) Confusion (Acute) UTI (urinary tract infection) (Acute) Diabetes (Chronic) TIA (transient ischemic attack) (Resolved) Pulmonary embolism (Resolved) UTI (urinary tract infection) (Resolved) Cardiac valve prolapse (Chronic) Balance disorder Basal pneumonia of both lungs (Acute) Diabetic peripheral neuropathy associated with type 2 diabetes mellitus Foot deformity Foot pain Loss of sensation Family History Other Family history non-contributory Social History Preferred Language: Austrian Communication Ability: Effective Building Equipment Operator Required: No Beliefs That Will Affect Care: None marital status: / Current Living Situation: Personal Care Facility Current Living Situation Comment: [facility] current occupational status: retired Feels Safe at Home: Yes Safety Concerns: Feels Safe At This Time Smoking Status: Never smoker Hx Alcohol Use: No Hx Substance Use: No Results & Data Vital Signs Vital Signs - 24 hr 12/16/18 01:01 12/16/18 01:03 Temperature 36.6 C Temperature Source Oral Sepsis Recent Fever Within 48 Hours No Sepsis Action Taken by Nursing No Action Required Pulse Rate 73 Pulse Rate [Right Finger] 72 Blood Pressure 139/74 Blood Pressure [Left Arm] 139/74 Blood Pressure Mean 95 Blood Pressure Mean [Left Arm] 95 Blood Pressure Position Lying Pulse Oximetry 96 97 Oxygen Delivery Method Room Air Room Air Home Medications Current Medication List: was personally reviewed by me Laboratory Data Attestation: I reviewed the patient's lab results. Result diagrams: 12/16/18 01:26 12/16/18 01:26 Lab Results 0412/16/18 12/16/18 Range/Units 01:26 01:26 01:26 WBC 11.44 H (4.8-10.8) K/uL RBC 3.47 L (4.2-5.4) M/uL Hgb 10.1 L (12.0-16.0) g/dL Hct 30.0 L (37-47) % MCV 86.5 (80-100) fL MCH 29.1 (25-34) pg MCHC 33.7 (32-36) g/dL RDW Std Deviation 45.2 (36.4-46.3) fL RDW Coeff of Chalino 14.4 (11.5-14.5) % Plt Count 213 (130-400) K/uL MPV 8.9 (7.4-10.4) fL Immature Gran % (Auto) 1.0 % Neut % (Auto) 68.4 % Lymph % (Auto) 17.4 % [place] % (Auto) 10.4 % Eos % (Auto) 2.7 % Baso % (Auto) 0.1 % Immature Gran # (Auto) 0.11 H (0.00-0.02) K/uL Neut # (Auto) 7.83 H (1.4-6.5) K/uL Lymph # (Auto) 1.99 (1.2-3.4) K/uL [place] # (Auto) 1.19 H (0.11-0.59) K/uL Eos # (Auto) 0.31 (0-0.5) K/uL Baso # (Auto) 0.01 (0-0.2) K/uL Sodium 129 L (136-145) mmol/L Potassium 4.0 (3.5-5.1) mmol/L Chloride 93 L (98-107) mmol/L Carbon Dioxide 30 (21-32) mmol/L Anion Gap 6.0 (3-11) BUN 10 (7-18) mg/dl Creatinine 0.86 (0.6-1.2) mg/dl Est Cr Clr Drug Dosing 69.4 ml/min Est GFR ( Amer) 75.0 Est GFR (Non-Af Amer) 64.7 BUN/Creatinine Ratio 11.3 (10-20) Glucose 123 H (70-99) mg/dl Osmolality (280-300) mOsm/kg Lactate 0.9 (0.4-2.0) mmol/L Calcium 8.9 (8.5-10.1) mg/dl Magnesium 1.6 L (1.8-2.4) mg/dl Total Bilirubin 0.4 (0.2-1) mg/dl Direct Bilirubin 0.1 (0-0.2) mg/dl AST 19 (15-37) U/L ALT 23 (12-78) U/L Alkaline Phosphatase 63 (45-117) U/L Troponin I < 0.015 (0-0.045) ng/ml C-Reactive Protein 4.74 H (0-0.29) mg/dl Total Protein 7.0 (6.4-8.2) gm/dl Albumin 3.0 L (3.4-5.0) gm/dl Procalcitonin (0-0.5) ng/ml 12/16/18 12/16/18 Range/Units 01:26 01:26 WBC (4.8-10.8) K/uL RBC (4.2-5.4) M/uL Hgb (12.0-16.0) g/dL Hct (37-47) % MCV (80-100) fL MCH (25-34) pg MCHC (32-36) g/dL RDW Std Deviation (36.4-46.3) fL RDW Coeff of Chalino (11.5-14.5) % Plt Count (130-400) K/uL MPV (7.4-10.4) fL Immature Gran % (Auto) % Neut % (Auto) % Lymph % (Auto) % [place] % (Auto) % Eos % (Auto) % Baso % (Auto) % Immature Gran # (Auto) (0.00-0.02) K/uL Neut # (Auto) (1.4-6.5) K/uL Lymph # (Auto) (1.2-3.4) K/uL [place] # (Auto) (0.11-0.59) K/uL Eos # (Auto) (0-0.5) K/uL Baso # (Auto) (0-0.2) K/uL Sodium (136-145) mmol/L Potassium (3.5-5.1) mmol/L Chloride (98-107) mmol/L Carbon Dioxide (21-32) mmol/L Anion Gap (3-11) BUN (7-18) mg/dl Creatinine (0.6-1.2) mg/dl Est Cr Clr Drug Dosing ml/min Est GFR ( Amer) Est GFR (Non-Af Amer) BUN/Creatinine Ratio (10-20) Glucose (70-99) mg/dl Osmolality 270 L (280-300) mOsm/kg Lactate (0.4-2.0) mmol/L Calcium (8.5-10.1) mg/dl Magnesium (1.8-2.4) mg/dl Total Bilirubin (0.2-1) mg/dl Direct Bilirubin (0-0.2) mg/dl AST (15-37) U/L ALT (12-78) U/L Alkaline Phosphatase (45-117) U/L Troponin I (0-0.045) ng/ml C-Reactive Protein (0-0.29) mg/dl Total Protein (6.4-8.2) gm/dl Albumin (3.4-5.0) gm/dl Procalcitonin 0.10 (0-0.5) ng/ml Administered Medications Discontinued Medications Piperacillin Sod/Tazobactam Sod (Zosyn) 4.5 gm in 120 mls @ 240 mls/hr IV NOW ONE Stop: 12/16/18 03:10 Last Admin: 12/16/18 05:45 Dose: 240 mls/hr Documented by: [id number] Blood Pressure Blood Pressure Findings: Elevated blood pressure Blood Pressure Disposition: further management by hospitalist Discharge Plan Visit Data *Final* Discharge Date/Time: 12/16/18 03:17 Chief Complaint: Leg Injury/Pain ED Provider: Mook Anne Discharge Problem: Cellulitis of left leg, Acute hyponatremia, Failure of outpatient treatment Patient Disposition: Admitted As Inpatient Discharge Instructions Interventions: ED Discharge Assessment Last Done: 12/16/18 03:17 The scribe's documentation has been prepared under my direction and personally reviewed by me in its entirety. I confirm that the note above accurately reflects all work, treatment, procedures, and medical decision making performed by me.
--- NOTE | 2018-12-16 06:29 | XRay Report ---
XR tibia fibula LT 2V HISTORY: 78 years-old Female swelling, cellulitis left lower extremity acute pain and swelling of th e left lower leg COMPARISON: None available TECHNIQUE: 2 views of the left tibia and fibula FINDINGS: Left knee total joint arthroplasty. Degenerative joint disease of the ankle. Soft tissue calcificatio ns of the lower leg with moderate diffuse soft tissue prominence. Peripheral arterial calcifications. No acute fracture, dislocation or bony erosive changes. IMPRESSION: Soft tissue swelling without acute fracture or dislocation. No bony erosive changes to law ggest osteomyelitis. The above report was generated using voice recognition software. It may contain grammatical, syntax o r spelling errors. Electronically signed by: Juan Alberto Baird M.D. 12/16/2018 6:28 AM
[2018-12-16] MEDS: RESTASIS~ORDER AWAITING ACTION SCH ×3 (07:59→23:53)
[2018-12-16] MEDS: ACETAMINOPHEN 500 MG TAB PO PRN ×2 (08:06→17:34)
[2018-12-16] MEDS: TRAMADOL HCL 50 MG TABLET PO PRN ×2 (08:06→19:33)
[2018-12-16] MEDS: LEVOTHYROXINE SODIUM 125 MCG TABLET PO SCH (08:07)
[2018-12-16] MEDS: GABAPENTIN 300 MG CAP PO SCH ×3 (08:08→17:16)
[2018-12-16] MEDS: TAMSULOSIN HCL 0.4 MG CAP PO SCH (08:08)
[2018-12-16] MEDS: GLUCOSAMINE SULFATE 500 MG CAP PO SCH (08:08)
[2018-12-16] MEDS: VITAMIN B COMPLEX TAB PO SCH (08:09)
[2018-12-16] MEDS: SERTRALINE HCL 50 MG TABLET PO SCH (08:09)
[2018-12-16] MEDS: MIRABEGRON ER 25 MG TAB PO SCH (08:10)
[2018-12-16] MEDS: CLOPIDOGREL BISULFATE 75 MG TAB PO SCH (08:11)
[2018-12-16] MEDS: MULTIVITAMIN TAB PO SCH (08:11)
[2018-12-16] MEDS: ATENOLOL 50 MG TABLET PO SCH (08:11)
[2018-12-16] MEDS: CALCIUM 600MG + VIT D 400 IU TAB PO SCH ×2 (08:11→17:16)
[2018-12-16] MEDS: DULOXETINE HCL 60 MG CAP PO SCH ×2 (08:11→12:57)
[2018-12-16] MEDS: FLUTICASONE PROPIONATE NA SPR 16 GM BTL SCH ×2 (08:12→20:23)
[2018-12-16] MEDS: IPRATROPIUM BROMIDE HFA INHALER INH SCH ×4 (08:12→20:22)
[2018-12-16] MEDS: ASPIRIN 81 MG ECTAB PO SCH (08:13)
[2018-12-16] MEDS: PANTOprazole 40 MG TAB PO SCH ×2 (08:13→17:16)
[2018-12-16] MEDS: SPIRONOLACTONE 25 MG TAB PO SCH (08:13)
[2018-12-16] MEDS: HEPARIN SOD 5,000 UNIT/0.5 ML VIAL SQ SCH ×2 (08:14→20:25)
--- NOTE | 2018-12-16 09:21 | Pharmacy Report ---
Pharmacy Abx Initial Consult - Date of Service December 16, 2018 - Pharmacy Dosing Scope Date of Consult: 12/16/18 Consultation requested by: Dr. Bauman Pharmacy is consulted to initiate vancomycin and Zosyn IV dosing therapy, order appropriate labs and adjust drug dose/frequency. - Subjective The patient is a 78 year old F admitted on 12/16/18 02:48. - Objective Height: 5 ft 3 in Weight: 121.7 kg Vital Signs (Past 12hrs): Vital Signs Temp Pulse Pulse Resp BP BP BP 12/16/18 08:25 36.9 C 74 18 141/76 H 12/16/18 01:03 36.6 C 73 139/74 12/16/18 01:01 72 139/74 Pulse Ox 12/16/18 08:25 95 12/16/18 01:03 97 12/16/18 01:01 96 Lab Results (24hrs): Laboratory Tests (24 Hours) 12/16/18 12/16/18 12/16/18 01:26 01:26 01:26 WBC 11.44 H Neut # (Auto) 7.83 H Creatinine 0.86 Est Cr Clr Drug Dosing 69.4 C-Reactive Protein 4.74 H Procalcitonin 0.10 Micro Results: 12/16/18 01:26 Blood Culture - Pending Blood 12/16/18 01:33 Blood Culture - Pending Blood - Risk Factors for Resistance * Hospitalization for 48 hours or more within the past 90 days * Antimicrobial use within the last 90 days (IV vancomycin and Zosyn (isolated doses less than one week ago), discharged with PO doxycycline) - Assessment & Plan Assessment 78 year old F presenting with worsening cellulitis of left leg and ascending lymphangitis Plan IV vancomycin and Zosyn ordered for empiric treatment of cellultis (refractory to failed outpatient treatment with PO doxycycline) Blood cultures x 2 obtained and pending Vancomycin IV * Estimated PK Parameters: Vd 0.6 L/kg (73.2 L), [place] 0.062 hr-1, t1/2 11 hr * Loading dose: 2500 mg (20 mg/kg) * Maintenance dose: 1500 mg IV (12.3 mg/kg) every 14 hours * Goal trough level for cellulitis : 10 to 20 mcg/mL * Will reassess creatinine clearance tomorrow to determine need for trough before third dose at 1000 on 4/7 * Current SCr: 0.86 (around baseline) - last admission SCr of 1.12 * Patient is afebrile with a WBC of 11.4 * A less than traditional dose has been selected due to likelihood of drug accumulation in obese patient Piperacillin/tazobactam * 4.5 g bolus administered over 30 minutes, then 4.5 g IV extended infusion every 8 hours for CrCl greater than 20 mL/min * Aggressive dosing selected due to BMI 35 Pharmacy will continue to follow and will adjust dose/frequency as necessary. Thank you.
[2018-12-16] MEDS: PIPERACILLIN/TAZOBACTAM 4.5 GM in DEXTROSE 5% 100 ML IV SCH ×2 (10:07→17:22)
--- NOTE | 2018-12-16 14:08 | Family Medicine Progress Note ---
Date of Service December 16, 2018 Assessment & Plan (1) Cellulitis of left le-year-old female was admitted on 16 December 2018 for confusion and worsening left lower extremity erythema / pain. Please see recent discharge summary on 14Dec2018 as well regarding her previous treatment for lower e xtremity cellulitis with lymphangitis. Left lower extremity cellulitis with ascending lymphangitis, sepsis: During previous hospitalization patient received single dose of vancomycin, Zosyn ongoing, then transitioned to Keflex as outpatient. Noted worsening of the cellulitis since discharge. Afebrile, no leukocytosis, as well as negative procalcitonin and lactate. Do not suspect current sepsis. Patient may have a resistant staph/strep cellulitis as source. Gram-negative bacteria seems less likely. 06Apr LLE Doppler u/s noted no evidence of DVT. 06Apr XR tib-fib noted soft tissue swelling without evidence of acute fracture, dislocation, or osteomyelitis. 02Apr BCx still NGTD. Repeat 06Apr BCx pending. - 06Apr started on vancomycin and Zosyn. Likely continue vancomycin for the next couple of days and then eventually transition to Bactrim. Confusion: Likely aggravated by metabolic encephalopathy in the setting of lower extremity cellulitis. This morning (06Apr) was not particularly confused. Monitoring. Chronic diastolic CHF: Initially held her diuretics due to suspected mild dehydration. Gently rehydrated with IV fluids on admission. Will restart her metolazone. Hypomagnesemia: Admit Mg 1.6, replaced. Ongoing medical issues: - Anemia: Admit Hb 10.1, around her baseline. Monitoring. - Hypertension, coronary artery disease: Continue aspirin, atenolol, Plavix, metolazone. Spironolactone. - Hypothyroidism: Continue levothyroxine. - Hyponatremia: Chronically in the upper 120s. Admit 129. Monitoring. - DM type II, diabetic peripheral neuropathy: HbA1c was 6.1 in March 2018. On home Neurontin.- Dementia, prior TIA, depression: On prior discharge, was on amitriptyline, donepezil, duloxetine, lorazepam, sertraline, and trazodone. - COPD: Continue Pro Air, Atrovent, Mucinex, Flonase, and singular. - YARI: Continue home CPAP. - GERD: On home ranitidine and Protonix. - Morbid obesity: BMI > 50. - Chronic interstitial cystitis, vaginal prolapse: On Myrbetriq and Flomax. - PE in 2009. Code status: Full code. Diet: Heart healthy. DVT prophy: Heparin q12h. PT/OT: Initially deferred. Goal for out of bed to chair as often as possible. Disbo: Admitted to [facility]. Patient is a resident of [facility]. (2) Confusion: (3) Diastolic CHF, chronic: (4) Hypomagnesemia: (5) Anemia, iron deficiency: (6) Hypertension: (7) CAD (coronary artery disease): (8) Hypothyroidism (acquired): (9) Hyponatremia: (10) Diabetic peripheral neuropathy associated with type 2 diabetes mellitus: (11) COPD (chronic obstructive pulmonary disease): (12) YARI (obstructive sleep apnea): (13) GERD (gastroesophageal reflux disease): (14) Morbid obesity with BMI of 50.0-59.9, adult: (15) Chronic interstitial cystitis: Supervising Physician Co-Signing Physician Notes I personally examined the patient and verified all posada points of history and exam, discussed case, and agree with decision making with Dr Gay. feeling better but leg still hurts. definitely was not only more red but hurting more than before. worsened through the late part of yesterday. not confused vitals noted nad breathing unlabored. LLE much more erythematous across [place] and calf, and medial thigh much more erythematous - and unlike prior exam before discharge - this is all VERY tender - and it was not before. cellultis/lymphangitis - not sepsis. but was definitely worsening. suspect resistant gram positives that also were resistant to doxy -- therefore prior improvement would've been from vanco --> then gradual wrosening thereafter. 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 this would all be far more likley than gram negative cellulitis/lymphangitis given lack of clear portal of entry/DM foot infection/dirty cut/puncture wound/etc. celestina, follow. Subjective Found patient resting comfortably earlier this morning. She says that she has a headache but denies any particular problems with her leg. She is pleasantly conversational and was oriented to her name, date of , location, but said it was November 2018. On later rounding in the afternoon, spoke with patient's daughter in person. Daughter noted the worsening cellulitis at home and increased weakness yesterday evening. She requested that the patient be on scheduled albuterol and Atrovent as well as be able to use her home CPAP. Physical Exam Vital Signs (Past 24 Hours): Last Vital Signs Temp 36.9 C 12/16/18 08:25 Pulse 74 12/16/18 08:25 Resp 18 12/16/18 08:25 BP 141/76 H 12/16/18 08:25 Pulse Ox 95 12/16/18 08:25 Physical Exam: General Appearance: Awake, alert & oriented (except to exact date), comfortable in general, NAD. CV: +S1S2 RRR, no murmur. Pulm: Clear to auscultation throughout. Abdomen: +BS, soft, non-tender, non-distended. Extremities: There is some mild erythema near circumferentially around the left calf. There is more moderate erythema over the entire medial left thigh extending to the groin. Both of these areas are mildly tender to palpation and warm to touch. No present obvious breaks in the skin or drainage. Neuro: No gross neuro deficits. Results & Data Laboratory Results 12/16/18 12/16/18 12/16/18 Range/Units 11:59 06:47 01:26 WBC (4.8-10.8) K/uL RBC (4.2-5.4) M/uL Hgb (12.0-16.0) g/dL Hct (37-47) % MCV (80-100) fL MCH (25-34) pg MCHC (32-36) g/dL RDW Std Deviation (36.4-46.3) fL RDW Coeff of Chal[place] (11.5-14.5) % Plt Count (130-400) K/uL MPV (7.4-10.4) fL Immature Gran % (Auto) % Neut % (Auto) % Lymph % (Auto) % [place] % (Auto) % Eos % (Auto) % Baso % (Auto) % Immature Gran # (Auto) (0.00-0.02) K/uL Neut # (Auto) (1.4-6.5) K/uL Lymph # (Auto) (1.2-3.4) K/uL [place] # (Auto) (0.11-0.59) K/uL Eos # (Auto) (0-0.5) K/uL Baso # (Auto) (0-0.2) K/uL Sodium (136-145) mmol/L Potassium (3.5-5.1) mmol/L Chloride (98-107) mmol/L Carbon Dioxide (21-32) mmol/L Anion Gap (3-11) BUN (7-18) mg/dl Creatinine (0.6-1.2) mg/dl Est Cr Clr Drug Dosing ml/min Est GFR ( Amer) Est GFR (Non-Af Amer) BUN/Creatinine Ratio (10-20) Glucose (70-99) mg/dl POC Glucose 149 H (70-99) Osmolality 270 L (280-300) mOsm/kg Lactate (0.4-2.0) mmol/L Calcium (8.5-10.1) mg/dl Magnesium (1.8-2.4) mg/dl Total Bilirubin (0.2-1) mg/dl Direct Bilirubin (0-0.2) mg/dl AST (15-37) U/L ALT (12-78) U/L Alkaline Phosphatase (45-117) U/L Troponin I (0-0.045) ng/ml C-Reactive Protein (0-0.29) mg/dl Total Protein (6.4-8.2) gm/dl Albumin (3.4-5.0) gm/dl Procalcitonin (0-0.5) ng/ml Urine Osmolality 247 L (500-800) mOsm/kg 12/16/18 12/16/18 12/16/18 Range/Units 01:26 01:26 01:26 WBC (4.8-10.8) K/uL RBC (4.2-5.4) M/uL Hgb (12.0-16.0) g/dL Hct (37-47) % MCV (80-100) fL MCH (25-34) pg MCHC (32-36) g/dL RDW Std Deviation (36.4-46.3) fL RDW Coeff of [place] (11.5-14.5) % Plt Count (130-400) K/uL MPV (7.4-10.4) fL Immature Gran % (Auto) % Neut % (Auto) % Lymph % (Auto) % [place] % (Auto) % Eos % (Auto) % Baso % (Auto) % Immature Gran # (Auto) (0.00-0.02) K/uL Neut # (Auto) (1.4-6.5) K/uL Lymph # (Auto) (1.2-3.4) K/uL [place] # (Auto) (0.11-0.59) K/uL Eos # (Auto) (0-0.5) K/uL Baso # (Auto) (0-0.2) K/uL Sodium 129 L (136-145) mmol/L Potassium 4.0 (3.5-5.1) mmol/L Chloride 93 L (98-107) mmol/L Carbon Dioxide 30 (21-32) mmol/L Anion Gap 6.0 (3-11) BUN 10 (7-18) mg/dl Creatinine 0.86 (0.6-1.2) mg/dl Est Cr Clr Drug Dosing 69.4 ml/min Est GFR ( Amer) 75.0 Est GFR (Non-Af Amer) 64.7 BUN/Creatinine Ratio 11.3 (10-20) Glucose 123 H (70-99) mg/dl POC Glucose (70-99) Osmolality (280-300) mOsm/kg Lactate 0.9 (0.4-2.0) mmol/L Calcium 8.9 (8.5-10.1) mg/dl Magnesium 1.6 L (1.8-2.4) mg/dl Total Bilirubin 0.4 (0.2-1) mg/dl Direct Bilirubin 0.1 (0-0.2) mg/dl AST 19 (15-37) U/L ALT 23 (12-78) U/L Alkaline Phosphatase 63 (45-117) U/L Troponin I < 0.015 (0-0.045) ng/ml C-Reactive Protein 4.74 H (0-0.29) mg/dl Total Protein 7.0 (6.4-8.2) gm/dl Albumin 3.0 L (3.4-5.0) gm/dl Procalcitonin 0.10 (0-0.5) ng/ml Urine Osmolality (500-800) mOsm/kg 12/16/18 Range/Units 01:26 WBC 11.44 H (4.8-10.8) K/uL RBC 3.47 L (4.2-5.4) M/uL Hgb 10.1 L (12.0-16.0) g/dL Hct 30.0 L (37-47) % MCV 86.5 (80-100) fL MCH 29.1 (25-34) pg MCHC 33.7 (32-36) g/dL RDW Std Deviation 45.2 (36.4-46.3) fL RDW Coeff of Chalino 14.4 (11.5-14.5) % Plt Count 213 (130-400) K/uL MPV 8.9 (7.4-10.4) fL Immature Gran % (Auto) 1.0 % Neut % (Auto) 68.4 % Lymph % (Auto) 17.4 % [place] % (Auto) 10.4 % Eos % (Auto) 2.7 % Baso % (Auto) 0.1 % Immature Gran # (Auto) 0.11 H (0.00-0.02) K/uL Neut # (Auto) 7.83 H (1.4-6.5) K/uL Lymph # (Auto) 1.99 (1.2-3.4) K/uL [place] # (Auto) 1.19 H (0.11-0.59) K/uL Eos # (Auto) 0.31 (0-0.5) K/uL Baso # (Auto) 0.01 (0-0.2) K/uL Sodium (136-145) mmol/L Potassium (3.5-5.1) mmol/L Chloride (98-107) mmol/L Carbon Dioxide (21-32) mmol/L Anion Gap (3-11) BUN (7-18) mg/dl Creatinine (0.6-1.2) mg/dl Est Cr Clr Drug Dosing ml/min Est GFR ( Amer) Est GFR (Non-Af Amer) BUN/Creatinine Ratio (10-20) Glucose (70-99) mg/dl POC Glucose (70-99) Osmolality (280-300) mOsm/kg Lactate (0.4-2.0) mmol/L Calcium (8.5-10.1) mg/dl Magnesium (1.8-2.4) mg/dl Total Bilirubin (0.2-1) mg/dl Direct Bilirubin (0-0.2) mg/dl AST (15-37) U/L ALT (12-78) U/L Alkaline Phosphatase (45-117) U/L Troponin I (0-0.045) ng/ml C-Reactive Protein (0-0.29) mg/dl Total Protein (6.4-8.2) gm/dl Albumin (3.4-5.0) gm/dl Procalcitonin (0-0.5) ng/ml Urine Osmolality (500-800) mOsm/kg Medications Administered Current Inpatient Medications Acetaminophen (Tylenol) 1,000 mg PO Q8 PRN PRN Reason: Pain Stop: 01/15/19 04:49 Last Admin: 12/16/18 08:06 Dose: 1,000 mg Documented by: Acetaminophen (Tylenol) 650 mg PO Q4H PRN PRN Reason: pain/fever Stop: 01/15/19 04:49 Albuterol (Ventolin Hfa) 2 puffs INH QID PRN PRN Reason: Shortness Of Breath Or Wheezin Albuterol (Ventolin Hfa) 1 puffs INH QIDR [facility] Stop: 01/15/19 15:59 Amitriptyline HCl (Elavil) 100 mg PO [facility] Stop: 01/15/19 20:59 [facility]) [facility]: 01/15/19 08:59 Last Admin: 12/16/18 08:13 Dose: 81 mg Documented by: Atenolol (Tenormin) 50 mg PO [facility] Stop: 01/15/19 08:59 Last Admin: 12/16/18 08:11 Dose: 50 mg Documented by: Calamine/Phenol (Calmoseptine) 1 appln EXT TID PRN PRN Reason: skin breakdown prevention Stop: 01/15/19 04:49 Clopidogrel Bisulfate ([facility]avix) [facility] [place]: 01/15/19 08:59 Last Admin: 12/16/18 08:11 Dose: 75 mg Documented by: Donepezil HCl (Aricept) 5 mg PO [facility] Stop: 01/15/19 20:59 Duloxetine HCl (Cymbalta) 60 mg PO BID@0730,3220 [facility] Stop: 01/15/19 07:29 Last Admin: 12/16/18 12:57 Dose: 60 mg Documented by: Estrogens Conjugated (Premarin Vag) 1 appln PV MoWeFr@0900 [facility] Stop: 01/17/19 08:59 Fluticasone Propionate (Flonase) 1 sprays NA BID [facility] Stop: 01/15/19 08:59 Last Admin: 12/16/18 08:12 Dose: 1 sprays Documented by: Gabapentin (Neurontin) 300 mg PO TIDM [facility] Stop: 01/15/19 07:59 Last Admin: 12/16/18 12:57 Dose: 300 mg Documented by: Glucosamine Sulfate (Glucosamine Sulfate) 1,500 mg PO QAM [facility] Stop: 01/15/19 08:59 Last Admin: 12/16/18 08:08 Dose: 1,500 mg Documented by: Heparin Sodium (Porcine) (Heparin Sodium (Porcine)) 5,000 units SQ Q12 [facility] Stop: 01/15/19 08:59 Last Admin: 12/16/18 08:14 Dose: 5,000 units Documented by: Piperacillin Sod/Tazobactam (Sod 4.5 gm/ Dextrose) 120 mls @ 30 mls/hr IV Q8H [facility]; Protocol Stop: 12/26/18 09:59 Last Infusion: 12/16/18 14:03 Dose: Infused Documented by: Vancomycin HCl 1,500 mg/ (Sodium Chloride) 530 mls @ 200 mls/hr IV Q14H [facility]; Protocol Stop: 12/26/18 19:59 Ipratropium [place] (Atrovent Hfa) 2 puffs INH QID [facility] Stop: 01/15/19 08:59 Last Admin: 12/16/18 12:58 Dose: 2 puffs Documented by: Levothyroxine Sodium (Synthroid) 250 mcg PO DAILYBB [facility] Stop: 01/15/19 06:29 Last Admin: 12/16/18 08:07 Dose: 250 mcg Documented by: Lorazepam (Ativan) 1 mg PO HS [facility] Stop: 01/15/19 20:59 Magnesium Hydroxide (Milk Of Magnesia) 20 ml PO DAILY PRN PRN Reason: Constipation Stop: 01/15/19 04:49 Metolazone (Zaroxolyn) 2.5 mg PO MoTh@0900 [facility] Stop: 01/17/19 08:59 Mirabegron (Myrbetriq Er) [facility] [place]: 01/15/19 08:59 Last Admin: 12/16/18 08:10 Dose: 50 mg Documented by: Miscellaneous (Order Awaiting Action) 1 ea N/A QS [facility] Stop: 01/15/19 07:59 Last Admin: 12/16/18 07:59 Dose: Not Given Documented by: Miscellaneous (Order Awaiting Action) 1 ea N/A QS [facility] Stop: 01/15/19 07:59 Last Admin: 12/16/18 07:59 Dose: Not Given Documented by: Miscellaneous Information (Consult) 1 ea N/A UD PRN PRN Reason: Consult Stop: 01/15/19 04:49 Miscellaneous Information (Consult) 1 ea N/A UD PRN PRN Reason: Consult Stop: 01/15/19 04:49 Montelukast Sodium (Singulair) 10 mg PO [facility] Stop: 01/15/19 20:59 Multivitamins (Multivitamin Tab) 1 [facility] [place]: 01/15/19 08:59 Last Admin: 12/16/18 08:11 Dose: 1 tab Documented by: Multivitamins/Minerals (Caltrate Plus) 1 tab PO BIDM [facility] Stop: 01/15/19 07:59 Last Admin: 12/16/18 08:11 Dose: 1 tab Documented by: Pantoprazole Sodium (Protonix) 40 mg PO BIDM [facility] Stop: 01/15/19 07:59 Last Admin: 12/16/18 08:13 Dose: 40 mg Documented by: Polyethylene Glycol (Miralax Powder Packet) 17 gm PO DAILY PRN PRN Reason: Constipation Stop: 01/15/19 04:49 Ranitidine HCl (Zantac) 150 mg PO BIDM [facility] Stop: 01/15/19 16:59 Sertraline HCl (Zoloft) 25 mg PO [facility] Stop: 01/15/19 08:59 Last Admin: 12/16/18 08:09 Dose: 25 mg Documented by: Spironolactone (Aldactone) 25 mg PO QAM [facility] Stop: 01/15/19 08:59 Last Admin: 12/16/18 08:13 Dose: 25 mg Documented by: Tamsulosin HCl (Flomax) 0.4 mg PO QAM [facility] Stop: 01/15/19 08:59 Last Admin: 12/16/18 08:08 Dose: 0.4 mg Documented by: Tramadol HCl (Ultram) 50 mg PO Q6H PRN PRN Reason: Pain Stop: 01/15/19 04:49 Last Admin: 12/16/18 08:06 Dose: 50 mg Documented by: Trazodone HCl (Desyrel) 200 mg PO [facility] Stop: 01/15/19 20:59 Vitamin B Complex (Vitamin B Complex) 1 tab PO QAM [facility] Stop: 01/15/19 08:59 Last Admin: 12/16/18 08:09 Dose: 1 tab Documented by: Resident Activity Tracking Resident Involvement: Resident Care Provided Care Provided: Adult Hospital Medicine
[2018-12-16] MEDS ORDERED: GLUCOSE 10 TABS/TUBE PO PRN (14:39)
[2018-12-16] MEDS ORDERED: GLUCOSE 40% GEL 15 GM TUBE PO PRN (14:39)
[2018-12-16] MEDS ORDERED: CARBOHYDRATES FOR HYPOGLYCEMIA PO PRN (14:39)
[2018-12-16] MEDS ORDERED: DEXTROSE 50% 50 ML SYRINGE IV PRN (14:39)
[2018-12-16] MEDS ORDERED: GLUCAGON FOR INJ 1 MG VIAL SQ PRN (14:39)
[2018-12-16] MEDS: ALBUTEROL HFA 8 GM INHALER INH SCH ×2 (17:14→20:21)
[2018-12-16] MEDS: INSULIN ASPART 100 UNITS/ML 3 ML PEN SC SCH ×2 (18:38→21:19)
[2018-12-16] MEDS: VANCOMYCIN HCL 1,500 MG in SODIUM CHLORIDE 0.9% 500 ML IV SCH (19:34)
[2018-12-16] MEDS: MONTELUKAST SODIUM 10 MG TABLET PO SCH (20:24)
[2018-12-16] MEDS: AMITRIPTYLINE HCL 100 MG TAB PO SCH (20:24)
[2018-12-16] MEDS: TRAZODONE HCL 100 MG TAB PO SCH (20:25)
[2018-12-16] MEDS: LORazepam 1 MG TAB PO SCH (20:25)
[2018-12-16] MEDS: DONEPEZIL HCL 5 MG TAB PO SCH (20:25)
[2018-12-16] MEDS ORDERED: ARTIFICIAL TEARS OPB SCH (21:00)
[2018-12-17] MEDS: PIPERACILLIN/TAZOBACTAM 4.5 GM in DEXTROSE 5% 100 ML IV SCH ×2 (01:27→09:22)
[2018-12-17] MEDS: LEVOTHYROXINE SODIUM 125 MCG TABLET PO SCH (06:18)
[2018-12-17 06:26] LABS: Basophils # (auto) 0.02 K/uL (0-0.2); Basophils % (auto) 0.2 %; Eosinophils # (auto) 0.25 K/uL (0-0.5); Hematocrit (blood only) 30.1 % (37-47); Hemoglobin 10.3 g/dL (12.0-16.0); Immature Granulocytes # (auto) 0.27 K/uL (0.00-0.02); Immature Granulocytes % (auto) 2.2 %; Lymphocytes # (auto) 1.74 K/uL (1.2-3.4); Lymphocytes % (auto) 14.1 %; Mean Corpuscular Hgb Conc 34.2 g/dL (32-36); Mean Corpuscular Volume 85.5 fL (80-100); Monocytes # (auto) 1.21 K/uL (0.11-0.59); Monocytes % (auto) 9.8 %; Neutrophils # (auto) 8.82 K/uL (1.4-6.5); Neutrophils % (auto) 71.7 %; Platelet Count 228 K/uL (130-400); RDW Coefficient of Variation 14.3 % (11.5-14.5); RDW Standard Deviation 44.9 fL (36.4-46.3); Red Blood Count 3.52 M/uL (4.2-5.4); White Blood Count 12.31 K/uL (4.8-10.8)
[2018-12-17 06:46] LABS: BUN Creatinine Ratio 10.1 (10-20); Creatinine Clr Calc Pharmacy 61.1 ml/min; Est GFR (African American) 65.7; Est GFR (Non-African American) 56.6
[2018-12-17] MEDS: TRAMADOL HCL 50 MG TABLET PO PRN (08:02)
[2018-12-17] MEDS: ACETAMINOPHEN 500 MG TAB PO PRN (08:03)
[2018-12-17] MEDS: DULOXETINE HCL 60 MG CAP PO SCH ×2 (08:04→13:07)
[2018-12-17] MEDS: GLUCOSAMINE SULFATE 500 MG CAP PO SCH (08:04)
[2018-12-17] MEDS: ASPIRIN 81 MG ECTAB PO SCH (08:05)
[2018-12-17] MEDS: MIRABEGRON ER 25 MG TAB PO SCH (08:05)
[2018-12-17] MEDS: VITAMIN B COMPLEX TAB PO SCH (08:06)
[2018-12-17] MEDS: ATENOLOL 50 MG TABLET PO SCH (08:06)
[2018-12-17] MEDS: SPIRONOLACTONE 25 MG TAB PO SCH (08:06)
[2018-12-17] MEDS: CALCIUM 600MG + VIT D 400 IU TAB PO SCH ×2 (08:06→17:49)
[2018-12-17] MEDS: FLUTICASONE PROPIONATE NA SPR 16 GM BTL SCH ×2 (08:06→20:19)
[2018-12-17] MEDS: TAMSULOSIN HCL 0.4 MG CAP PO SCH (08:06)
[2018-12-17] MEDS: MULTIVITAMIN TAB PO SCH (08:07)
[2018-12-17] MEDS: GABAPENTIN 300 MG CAP PO SCH ×3 (08:07→17:48)
[2018-12-17] MEDS: IPRATROPIUM BROMIDE HFA INHALER INH SCH ×4 (08:07→20:16)
[2018-12-17] MEDS: CLOPIDOGREL BISULFATE 75 MG TAB PO SCH (08:07)
[2018-12-17] MEDS: RESTASIS~ORDER AWAITING ACTION SCH ×3 (08:08→23:18)
[2018-12-17] MEDS: PANTOprazole 40 MG TAB PO SCH ×2 (08:08→17:48)
[2018-12-17] MEDS: ALBUTEROL HFA 8 GM INHALER INH SCH ×4 (08:08→20:16)
[2018-12-17] MEDS: SERTRALINE HCL 50 MG TABLET PO SCH (08:09)
[2018-12-17] MEDS: HEPARIN SOD 5,000 UNIT/0.5 ML VIAL SQ SCH ×2 (08:09→20:19)
[2018-12-17] MEDS: INSULIN ASPART 100 UNITS/ML 3 ML PEN SC SCH ×4 (08:11→20:36)
--- NOTE | 2018-12-17 09:08 | Family Medicine Progress Note ---
Date of Service December 17, 2018 Assessment & Plan (1) Cellulitis of left le-year-old female was admitted on 16 December 2018 for confusion and worsening left lower extremity erythema / pain. Please see recent discharge summary on [id number] as well regarding her previous treatment for lower e xtremity cellulitis with lymphangitis. Left lower extremity cellulitis with ascending lymphangitis: During previous hospitalization patient received single dose of vancomycin, Zosyn ongoing, then transitioned to Keflex as outpatient. Noted worsening of the cellulitis since discharge. Afebrile, no leukocytosis, as well as negative procalcitonin and lactate. Do not suspect current sepsis. Patient may have a resistant staph/strep cellulitis as source. Gram-negative bacteria seems less likely. 06Apr LLE Doppler u/s noted no evidence of DVT. 06Apr XR tib-fib noted soft tissue swelling without evidence of acute fracture, dislocation, or osteomyelitis. 02Apr BCx no growth final. Repeat 06Apr BCx with NGTD. - 06Apr started on vancomycin and Zosyn. Likely continue vancomycin for the next couple of days and then eventually transition to Bactrim. Showing some initial improvement on this antibiotic regimen. - 07Apr will stop the zosyn for now. Due to issues with obtaining lasting PIV access, discussed with patient and obtained written consent for PICC placement today (which would be of benefit if patient ends up needing prolonged IV antibiotics). Confusion: Likely aggravated by metabolic encephalopathy in the setting of lower extremity cellulitis. Has not appeared notably confused for over 24 hours now. Monitoring. Chronic diastolic CHF: Initially held her diuretics due to suspected mild dehydration. Gently rehydrated with IV fluids on admission. Restarted her metolazone. Hypomagnesemia: Admit Mg 1.6, replaced. Ongoing medical issues: - Anemia: Admit Hb 10.1, around her baseline. Monitoring. - Hypertension, coronary artery disease: Continue aspirin, atenolol, Plavix, metolazone, spironolactone. - Hypothyroidism: Continue levothyroxine. - Hyponatremia: Chronically in the upper 120s. Admit 129. Monitoring. - DM type II, diabetic peripheral neuropathy: HbA1c was 6.1 in March 2018. On home Neurontin. Sliding scale coverage here. - Dementia, prior TIA, depression: On prior discharge, was on amitriptyline, donepezil, duloxetine, lorazepam, sertraline, and trazodone. - COPD, YARI: Continue Pro Air, Atrovent, Mucinex, Flonase, and singular. Co ntinue home CPAP. - GERD: On home ranitidine and Protonix. - Morbid obesity: BMI > 50. - Chronic interstitial cystitis, vaginal prolapse: On Myrbetriq and Flomax. - PE in 2009. Code status: Full code. Diet: Heart healthy, DM2. DVT prophy: Heparin q12h. PT/OT: Ordered. Goal for out of bed to chair as often as possible. Disbo: Admitted to [facility]. Patient is a resident of [facility]. (2) Confusion: (3) Diastolic CHF, chronic: (4) Hypomagnesemia: (5) Anemia, iron deficiency: (6) Hypertension: (7) CAD (coronary artery disease): (8) Hypothyroidism (acquired): (9) Hyponatremia: (10) Diabetic peripheral neuropathy associated with type 2 diabetes mellitus: (11) COPD (chronic obstructive pulmonary disease): (12) YARI (obstructive sleep apnea): (13) GERD (gastroesophageal reflux disease): (14) Morbid obesity with BMI of 50.0-59.9, adult: (15) Chronic interstitial cystitis: Supervising Physician Co-Signing Physician Notes I personally examined the patient and verified all posada points of history and exam, discussed case, and agree with decision making with Dr Gay. seems to be improving some. does appear a bit discouraged. leg feels about the same to her. extensive discussion on IV access - that right now PICC line appears best not because she's likely to need lens dotter, but because she has no other viable peripheral access and leg still appearing to require vanco vitals noted nad breathing unlabored. LLE much more erythematous across [place] and calf, and medial thigh similar distribution to yesterday, still fairly tender although probably a little less, less bright red, more fading to duller orange/brown. cellultis/lymphangitis - not sepsis on admission but was definitely worsening. suspect resistant gram positives that also were resistant to doxy -- therefore prior improvement last admission would've been from vanco --> then gradual worsening thereafter. 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 this would all be far more likley than gram negative cellulitis/lymphangitis given lack of clear portal of entry/DM foot infection/dirty cut/puncture wound/etc. miquel oscar. once appearing well enough to consider oral abx, would likely transition to bactrim to complete course of therapy. Subjective Found patient lying upright in her bed, eating her breakfast. She says that her left leg feels a little less sore than it was yesterday. Otherwise she denies any particular complaints or pain elsewhere. Physical Exam Vital Signs (Past 24 Hours): Last Vital Signs Temp 36.9 C 12/17/18 07:27 Pulse 60 12/17/18 07:27 Resp 18 12/17/18 07:27 BP 119/68 12/17/18 07:27 Pulse Ox 91 12/17/18 07:27 Physical Exam: General Appearance: Awake, alert & oriented (except to exact date), comfortable in general, NAD. CV: +S1S2 RRR, no murmur. Pulm: Clear to auscultation throughout. Abdomen: +BS, soft, non-tender, non-distended. Extremities: There is some moderate erythema near circumferentially around the left calf. There is slightly improved but moderate erythema over the entire medial left thigh extending to the groin. Both of these areas are mild- moderately tender to palpation and warm to touch. No present obvious breaks in the skin or drainage. [Compared to exam on , the erythema seems of same distribution but a little less intense. TTP is about the same.] Neuro: No gross neuro deficits. Results & Data Laboratory Results 12/17/18 12/17/18 12/16/18 Range/Units 06:01 06:01 20:30 WBC 12.31 H (4.8-10.8) K/uL RBC 3.52 L (4.2-5.4) M/uL Hgb 10.3 L (12.0-16.0) g/dL Hct 30.1 L (37-47) % MCV 85.5 (80-100) fL MCH 29.3 (25-34) pg MCHC 34.2 (32-36) g/dL RDW Std Deviation 44.9 (36.4-46.3) fL RDW Coeff of [place] 14.3 (11.5-14.5) % Plt Count 228 (130-400) K/uL MPV 9.0 (7.4-10.4) fL Immature Gran % (Auto) 2.2 % Neut % (Auto) 71.7 % Lymph % (Auto) 14.1 % [place] % (Auto) 9.8 % Eos % (Auto) 2.0 % Baso % (Auto) 0.2 % Immature Gran # (Auto) 0.27 H (0.00-0.02) K/uL Neut # (Auto) 8.82 H (1.4-6.5) K/uL Lymph # (Auto) 1.74 (1.2-3.4) K/uL [place] # (Auto) 1.21 H (0.11-0.59) K/uL Eos # (Auto) 0.25 (0-0.5) K/uL Baso # (Auto) 0.02 (0-0.2) K/uL Sodium 130 L (136-145) mmol/L Potassium 4.0 (3.5-5.1) mmol/L Chloride 93 L (98-107) mmol/L Carbon Dioxide 31 (21-32) mmol/L Anion Gap 7.0 (3-11) BUN 10 (7-18) mg/dl Creatinine 0.96 (0.6-1.2) mg/dl Est Cr Clr Drug Dosing 61.1 ml/min Est GFR ( Amer) 65.7 Est GFR (Non-Af Amer) 56.6 BUN/Creatinine Ratio 10.1 (10-20) Glucose 141 H (70-99) mg/dl POC Glucose 150 H (70-99) Calcium 9.0 (8.5-10.1) mg/dl 12/16/18 12/16/18 Range/Units 16:47 11:59 WBC (4.8-10.8) K/uL RBC (4.2-5.4) M/uL Hgb (12.0-16.0) g/dL Hct (37-47) % MCV (80-100) fL MCH (25-34) pg MCHC (32-36) g/dL RDW Std Deviation (36.4-46.3) fL RDW Coeff of [place] (11.5-14.5) % Plt Count (130-400) K/uL MPV (7.4-10.4) fL Immature Gran % (Auto) % Neut % (Auto) % Lymph % (Auto) % [place] % (Auto) % Eos % (Auto) % Baso % (Auto) % Immature Gran # (Auto) (0.00-0.02) K/uL Neut # (Auto) (1.4-6.5) K/uL Lymph # (Auto) (1.2-3.4) K/uL [place] # (Auto) (0.11-0.59) K/uL Eos # (Auto) (0-0.5) K/uL Baso # (Auto) (0-0.2) K/uL Sodium (136-145) mmol/L Potassium (3.5-5.1) mmol/L Chloride (98-107) mmol/L Carbon Dioxide (21-32) mmol/L Anion Gap (3-11) BUN (7-18) mg/dl Creatinine (0.6-1.2) mg/dl Est Cr Clr Drug Dosing ml/min Est GFR ( Amer) Est GFR (Non-Af Amer) BUN/Creatinine Ratio (10-20) Glucose (70-99) mg/dl POC Glucose 140 H 149 H (70-99) Calcium (8.5-10.1) mg/dl Medications Administered Current Inpatient Medications Acetaminophen (Tylenol) 1,000 mg PO Q8 PRN PRN Reason: Pain Stop: 01/15/19 04:49 Last Admin: 12/17/18 08:03 Dose: 1,000 mg Documented by: Acetaminophen (Tylenol) 650 mg PO Q4H PRN PRN Reason: pain/fever Stop: 01/15/19 04:49 Albuterol (Ventolin Hfa) 2 puffs INH QID PRN PRN Reason: Shortness Of Breath Or Wheezin Albuterol (Ventolin Hfa) 1 puffs INH QIDR HAO Stop: 01/15/19 15:59 Last Admin: 12/17/18 08:08 Dose: 1 puffs Documented by: Amitriptyline HCl (Elavil) 100 mg PO HS [facility] Stop: 01/15/19 20:59 Last Admin: 12/16/18 20:24 Dose: 100 mg Documented by: Aspirin (Ecotrin Ectab) 81 mg PO QAM [facility] Stop: 01/15/19 08:59 Last Admin: 12/17/18 08:05 Dose: 81 mg Documented by: [facility] ([facility]ormin) [facility] [place] Stop: 01/15/19 08:59 Last Admin: 12/17/18 08:06 Dose: 50 mg Documented by: Calamine/Phenol (Calmoseptine) 1 appln EXT TID PRN PRN Reason: skin breakdown prevention Stop: 01/15/19 04:49 Clopidogrel Bisulfate (Plavix) 75 [facility] [place] Stop: 01/15/19 08:59 Last Admin: 12/17/18 08:07 Dose: 75 mg Documented by: Dextrose (Dextrose 50%) 25 - 50 ml IV UD PRN; Protocol PRN Reason: Hypoglycemia Protocol Stop: 01/15/19 14:38 Donepezil HCl (Aricept) 5 mg PO HS [facility] Stop: 01/15/19 20:59 Last Admin: 12/16/18 20:25 Dose: 5 mg Documented by: Duloxetine HCl (Cymbalta) 60 mg PO BID@0730,1130 [facility] Stop: 01/15/19 07:29 Last Admin: 12/17/18 08:04 Dose: 60 mg Documented by: Estrogens Conjugated (Premarin Vag) 1 appln PV MoWeFr@0900 [facility] Stop: 01/17/19 08:59 Fluticasone Propionate (Flonase) 1 sprays NA BID [facility] Stop: 01/15/19 08:59 Last Admin: 12/17/18 08:06 Dose: 1 sprays Documented by: Gabapentin (Neurontin) 300 mg PO TIDM [facility] Stop: 01/15/19 07:59 Last Admin: 12/17/18 08:07 Dose: 300 mg Documented by: Glucagon (Glucagen) 1 mg SQ UD PRN; Protocol PRN Reason: Hypoglycemia Protocol Stop: 01/15/19 14:38 Glucosamine Sulfate (Glucosamine Sulfate) 1,500 [facility] [place] Stop: 01/15/19 08:59 Last Admin: 12/17/18 08:04 Dose: 1,500 mg Documented by: Glucose (Glucose 40%) 15 - 30 gm PO UD PRN; Protocol PRN Reason: Hypoglycemia Protocol Stop: 01/15/19 14:38 Glucose (Dex4 Glucose) 4 - 8 tabs PO UD PRN; Protocol PRN Reason: Hypoglycemia Protocol Stop: 01/15/19 14:38 Heparin Sodium (Porcine) (Heparin Sodium (Porcine)) 5,000 units SQ Q12 [facility]O Stop: 01/15/19 08:59 Last Admin: 12/17/18 08:09 Dose: 5,000 units Documented by: Piperacillin Sod/Tazobactam (Sod 4.5 gm/ Dextrose) 120 mls @ 30 mls/hr IV Q8H [facility]; Protocol Stop: 12/26/18 09:59 Last Infusion: 12/17/18 06:16 Dose: Infused Documented by: Vancomycin HCl 1,500 mg/ (Sodium Chloride) 530 mls @ 200 mls/hr IV Q14H [facility]; Protocol Stop: 12/26/18 19:59 Last Infusion: 12/16/18 22:14 Dose: Infused Documented by: Insulin Aspart (Novolog Flexpen) 0 units SC ACHS [facility] Stop: 01/15/19 16:29 Last Admin: 12/17/18 08:11 Dose: 2 units Documented by: Ipratropium [place] (Atrovent Hfa) 2 puffs INH QID [facility] Stop: 01/15/19 08:59 Last Admin: 12/17/18 08:07 Dose: 2 puffs Documented by: Levothyroxine Sodium (Synthroid) 250 mcg PO DAILYBB [facility] Stop: 01/15/19 06:29 Last Admin: 12/17/18 06:18 Dose: 250 mcg Documented by: Lorazepam (Ativan) 1 mg PO HS [facility] Stop: 01/15/19 20:59 Last Admin: 12/16/18 20:25 Dose: 1 mg Documented by: Magnesium Hydroxide (Milk Of Magnesia) 20 ml PO DAILY PRN PRN Reason: Constipation Stop: 01/15/19 04:49 Metolazone (Zaroxolyn) 2.5 mg PO MoTh@0900 [facility] Stop: 01/17/19 08:59 Mirabegron (Myrbetriq Er) 50 mg PO QAM [facility] Stop: 01/15/19 08:59 Last Admin: 12/17/18 08:05 Dose: 50 mg Documented by: Miscellaneous (Order Awaiting Action) 1 ea N/A QS [facility] Stop: 01/15/19 07:59 Last Admin: 12/17/18 08:08 Dose: Not Given Documented by: Miscellaneous (Order Awaiting Action) 1 ea N/A QS [facility] Stop: 01/15/19 07:59 Last Admin: 12/17/18 08:08 Dose: Not Given Documented by: Miscellaneous (Carbohydrates For Hypoglycemia) 15 - 30 gm PO UD PRN PRN Reason: Hypoglycemia Treatment Stop: 01/15/19 14:38 Miscellaneous Information (Consult) 1 ea N/A UD PRN PRN Reason: Consult Stop: 01/15/19 04:49 Miscellaneous Information (Consult) 1 ea N/A UD PRN PRN Reason: Consult Stop: 01/15/19 04:49 Montelukast Sodium (Singulair) 10 mg PO HS [facility] Stop: 01/15/19 20:59 Last Admin: 12/16/18 20:24 Dose: 10 mg Documented by: Multivitamins (Multivitamin Tab) [facility] [place] Stop: 01/15/19 08:59 Last Admin: 12/17/18 08:07 Dose: 1 tab Documented by: Multivitamins/Minerals (Caltrate Plus) 1 tab PO BIDM [facility] Stop: 01/15/19 07:59 Last Admin: 12/17/18 08:06 Dose: 1 tab Documented by: Pantoprazole Sodium (Protonix) 40 mg PO BIDM [facility] Stop: 01/15/19 07:59 Last Admin: 12/17/18 08:08 Dose: 40 mg Documented by: Polyethylene Glycol (Miralax Powder Packet) 17 gm PO DAILY PRN PRN Reason: Constipation Stop: 01/15/19 04:49 Ranitidine HCl (Zantac) 150 mg PO BIDM [facility] Stop: 01/15/19 16:59 Last Admin: 12/17/18 08:09 Dose: 150 mg Documented by: Sertraline HCl (Zoloft) 25 mg PO [facility] Stop: 01/15/19 08:59 Last Admin: 12/17/18 08:09 Dose: 25 mg Documented by: Spironolactone (Aldactone) [facility] [place] Stop: 01/15/19 08:59 Last Admin: 12/17/18 08:06 Dose: 25 mg Documented by: Tamsulosin HCl (Flomax) 0.4 mg [facility] [place] [facility] [place] Stop: 01/15/19 08:59 Last Admin: 12/17/18 08:06 Dose: 0.4 mg Documented by: Tramadol HCl (Ultram) 50 mg PO Q6H PRN PRN Reason: Pain Stop: 01/15/19 04:49 Last Admin: 12/17/18 08:02 Dose: 50 mg Documented by: Trazodone HCl (Desyrel) 200 mg PO HS [facility] Stop: 01/15/19 20:59 Last Admin: 12/16/18 20:25 Dose: 200 mg Documented by: Vitamin B Complex (Vitamin B Complex) 1 tab PO QAM [facility] Stop: 01/15/19 08:59 Last Admin: 12/17/18 08:06 Dose: 1 tab Documented by: Resident Activity Tracking Resident Involvement: Resident Care Provided Care Provided: Adult Hospital Medicine
[2018-12-17] MEDS: VANCOMYCIN HCL 1,500 MG in SODIUM CHLORIDE 0.9% 500 ML IV SCH (09:22)
[2018-12-17] MEDS ORDERED: VANCOMYCIN HCL 1,500 MG in SODIUM CHLORIDE 0.9% 500 ML IV SCH (15:30)
[2018-12-17] MEDS: LORazepam 1 MG TAB PO SCH (20:16)
[2018-12-17] MEDS: DONEPEZIL HCL 5 MG TAB PO SCH (20:17)
[2018-12-17] MEDS: TRAZODONE HCL 100 MG TAB PO SCH (20:18)
[2018-12-17] MEDS: AMITRIPTYLINE HCL 100 MG TAB PO SCH (20:18)
[2018-12-17] MEDS: MONTELUKAST SODIUM 10 MG TABLET PO SCH (20:19)
[2018-12-17] MEDS ORDERED: VANCOMYCIN TROUGH ONE (23:30)
[2018-12-18] MEDS: VANCOMYCIN HCL 1,500 MG in SODIUM CHLORIDE 0.9% 500 ML IV SCH ×2 (04:56→19:46)
[2018-12-18] MEDS: LEVOTHYROXINE SODIUM 125 MCG TABLET PO SCH (05:54)
[2018-12-18] MEDS: TRAMADOL HCL 50 MG TABLET PO PRN (07:06)
[2018-12-18 07:23] LABS: Creatinine Clr Calc Pharmacy 66.6 ml/min; Est GFR (African American) 72.9; Est GFR (Non-African American) 62.9
[2018-12-18] MEDS: CALCIUM 600MG + VIT D 400 IU TAB PO SCH ×2 (07:56→17:17)
[2018-12-18] MEDS: GABAPENTIN 300 MG CAP PO SCH ×3 (07:56→17:18)
[2018-12-18] MEDS: ALBUTEROL HFA 8 GM INHALER INH SCH ×4 (07:57→19:47)
[2018-12-18] MEDS: RESTASIS~ORDER AWAITING ACTION SCH ×3 (07:57→23:40)
[2018-12-18] MEDS: PANTOprazole 40 MG TAB PO SCH ×2 (07:58→17:18)
[2018-12-18] MEDS: DULOXETINE HCL 60 MG CAP PO SCH ×2 (07:58→13:04)
[2018-12-18] MEDS: CLOPIDOGREL BISULFATE 75 MG TAB PO SCH (07:59)
[2018-12-18] MEDS: ATENOLOL 50 MG TABLET PO SCH (07:59)
[2018-12-18] MEDS: TAMSULOSIN HCL 0.4 MG CAP PO SCH (07:59)
[2018-12-18] MEDS: MIRABEGRON ER 25 MG TAB PO SCH (07:59)
[2018-12-18] MEDS: MULTIVITAMIN TAB PO SCH (08:00)
[2018-12-18] MEDS: VITAMIN B COMPLEX TAB PO SCH (08:00)
[2018-12-18] MEDS: GLUCOSAMINE SULFATE 500 MG CAP PO SCH (08:00)
[2018-12-18] MEDS: metOLazone 2.5 MG TABLET PO SCH (08:00)
[2018-12-18] MEDS: SERTRALINE HCL 50 MG TABLET PO SCH (08:01)
[2018-12-18] MEDS: SPIRONOLACTONE 25 MG TAB PO SCH (08:01)
[2018-12-18] MEDS: FLUTICASONE PROPIONATE NA SPR 16 GM BTL SCH ×2 (08:01→20:44)
[2018-12-18] MEDS: HEPARIN SOD 5,000 UNIT/0.5 ML VIAL SQ SCH ×2 (08:02→20:42)
[2018-12-18] MEDS: IPRATROPIUM BROMIDE HFA INHALER INH SCH ×4 (08:04→20:43)
[2018-12-18] MEDS: ASPIRIN 81 MG ECTAB PO SCH (08:08)
[2018-12-18] MEDS: INSULIN ASPART 100 UNITS/ML 3 ML PEN SC SCH ×4 (08:13→20:41)
[2018-12-18 10:06] LABS: Creatinine Clr Calc Pharmacy 68.2 ml/min; Est GFR (Non-African American) 64.7
[2018-12-18] MEDS: PREMARIN VAG CRM 14 APPLN/30 GM TUBE PV SCH (17:13)
[2018-12-18] MEDS ORDERED: VANCOMYCIN TROUGH ONE (18:30)
--- NOTE | 2018-12-18 18:36 | Family Medicine Progress Note ---
Date of Service December 18, 2018 Assessment & Plan (1) Cellulitis of left le-year-old female was admitted on 16 December 2018 for confusion and worsening left lower extremity erythema / pain. Please see recent discharge summary on 14Dec2018 as well regarding her previous treatment for lower e xtremity cellulitis with lymphangitis. #Left lower extremity cellulitis with Acute ascending lymphangitis: -During previous hospitalization, received single dose of vancomycin, Zosyn ongoing, then transitioned to Keflex as outpatient. Failed PO keflex, worsening erythema. Afebrile, no leukocytosis, as well as negative procalcitonin and lactate. -Patient may have a resistant staph/strep cellulitis as source. Gram-negative bacteria seems less likely. -No DVT on 06Apr LLE Doppler u/s -No osteo or frx on 06Apr XR tib-fib -02Apr BCx no growth final. Repeat 06Apr BCx with NGTD. -06Apr started on vancomycin and Zosyn. Plan to clinically follow and then eventually transition to Bactrim. Showing some initial improvement on this antibiotic regimen. -07Apr zosyn DCd. -cont Tramadol 50mg PO q6h PRN, tylenol prn. #Chronic venous stasis -Raise leg -stocking #Poor venous access: -Due to issues with obtaining lasting PIV access, discussed with patient and obtained written consent for PICC placement 07Apr. #Confusion: -Not clinically evident today, although likely aggravated by metabolic encephalopathy in the setting of lower extremity cellulitis. Monitoring. Code status: Full code. Diet: Heart healthy, DM2. DVT prophy: Heparin q12h. Dispo: MedSurg. PT/OT. Patient is a resident of [facility]. PICC in place. Ongoing medical problems: #Chronic diastolic CHF: Initially held her diuretics due to suspected mild dehydration. Gently rehydrated with IV fluids on admission. Restarted her metolazone. #Anemia: Admit Hb 10.1, around her baseline. Monitoring. #Hypertension, coronary artery disease: Continue aspirin, atenolol, Plavix, metolazone, spironolactone. #Hypothyroidism: Continue levothyroxine. #Hyponatremia: Chronically in the upper 120s. Admit 129. Monitoring. #DM type II, diabetic peripheral neuropathy: HbA1c was 6.1 in March 2018. On home Neurontin. Sliding scale coverage here. #Dementia, prior TIA, depression: On prior discharge, was on amitriptyline, donepezil, duloxetine, lorazepam, sertraline, and trazodone. Continued here. #COPD, YARI: Continue Pro Air, Atrovent, Mucinex, Flonase, and singular. Continue home CPAP. #GERD: On home ranitidine and Protonix. #Morbid obesity: BMI > 50. #Chronic interstitial cystitis, vaginal prolapse: On Myrbetriq and Flomax. #PE in 2009. (2) Confusion: (3) Diastolic CHF, chronic: (4) Hypomagnesemia: (5) Anemia, iron deficiency: (6) Hypertension: (7) CAD (coronary artery disease): (8) Hypothyroidism (acquired): (9) Hyponatremia: (10) Diabetic peripheral neuropathy associated with type 2 diabetes mellitus: (11) COPD (chronic obstructive pulmonary disease): (12) YARI (obstructive sleep apnea): (13) GERD (gastroesophageal reflux disease): (14) Morbid obesity with BMI of 50.0-59.9, adult: (15) Chronic interstitial cystitis: Supervising Physician Co-Signing Physician Notes Resident Physician Supervision Note: I independently interviewed and examined the patient and verified the posada his tory and physical, reviewed labs and image studies, discussed the case with the resident Dr. Pritchard and agree with the findings and care plan. Subjective Pt sitting in chair upon interview. Complains of 7/10 LLE pain. Also endorses headache "for months". Tolerating PO. Does not endorse other complaints. ROS As above. Physical Exam Vital Signs (Past 24 Hours): Last Vital Signs Temp 36.5 C 12/18/18 15:20 Pulse 81 12/18/18 15:20 Resp 20 12/18/18 15:20 BP 95/59 L 12/18/18 15:20 Pulse Ox 94 12/18/18 15:20 Physical Exam: Vitals noted as above and within normal limits . GENERAL: Awake, alert to person, place, and time, nontoxic-appearing, in no distress HENT: Normocephalic, atraumatic. . Mucus membranes appear moist. EYES: Normal conjunctiva. Sclera non-icteric. EOMI. NECK: Supple. Full range of motion. RESPIRATORY: Clear to auscultation. Normal work of breathing. CARDIAC: Regular rate, normal rhythm. Extremities warm and well perfused, ; . ABDOMEN: Soft, non-distended. Bowel sounds are normal. LOWER EXTREMITIES: Inspection of calves reveal equal size bilaterally. They are LLE with tenderness to palpation, erythema and warmth up to posterior thigh, no drainage or weeping. NEURO: No focal gross focal motor deficits noted. Sensation in tact. CN II-XII grossly in tact. SKIN: Rash as above. No jaundice noted. PICC in place, right UE. PSYCH: Appropriate mood and affect. Cooperative. Exam as done by Radha Pritchard MD, [employer]. Results & Data Laboratory Results 12/18/18 12/18/18 12/18/18 Range/Units 20:09 19:02 16:09 Sodium (136-145) mmol/L Potassium (3.5-5.1) mmol/L Chloride (98-107) mmol/L Carbon Dioxide (21-32) mmol/L Anion Gap (3-11) BUN (7-18) mg/dl Creatinine (0.6-1.2) mg/dl Est Cr Clr Drug Dosing ml/min Est GFR ( Amer) Est GFR (Non-Af Amer) BUN/Creatinine Ratio (10-20) Glucose (70-99) mg/dl POC Glucose 162 H 153 H (70-99) Calcium (8.5-10.1) mg/dl Vancomycin Trough 16.4 (See Comment) mcg/ml 12/18/18 12/18/18 12/18/18 Range/Units 11:54 07:48 06:47 Sodium 131 L (136-145) mmol/L Potassium 4.0 (3.5-5.1) mmol/L Chloride 95 L (98-107) mmol/L Carbon Dioxide 32 (21-32) mmol/L Anion Gap 3.0 (3-11) BUN 11 (7-18) mg/dl Creatinine 0.86 (0.6-1.2) mg/dl Est Cr Clr Drug Dosing 68.2 ml/min Est GFR ( Amer) 75.0 Est GFR (Non-Af Amer) 64.7 BUN/Creatinine Ratio 13.0 (10-20) Glucose 127 H (70-99) mg/dl POC Glucose 203 H 136 H (70-99) Calcium 9.0 (8.5-10.1) mg/dl Vancomycin Trough (See Comment) mcg/ml 12/18/18 Range/Units 06:45 Sodium (136-145) mmol/L Potassium (3.5-5.1) mmol/L Chloride (98-107) mmol/L Carbon Dioxide (21-32) mmol/L Anion Gap (3-11) BUN (7-18) mg/dl Creatinine 0.88 (0.6-1.2) mg/dl Est Cr Clr Drug Dosing 66.6 ml/min Est GFR ( Amer) 72.9 Est GFR (Non-Af Amer) 62.9 BUN/Creatinine Ratio (10-20) Glucose (70-99) mg/dl POC Glucose (70-99) Calcium (8.5-10.1) mg/dl Vancomycin Trough (See Comment) mcg/ml Medications Administered Current Inpatient Medications Acetaminophen (Tylenol) 1,000 mg PO Q8 PRN PRN Reason: Pain Stop: 01/15/19 04:49 Last Admin: 12/17/18 08:03 Dose: 1,000 mg Documented by: Acetaminophen (Tylenol) 650 mg PO Q4H PRN PRN Reason: pain/fever Stop: 01/15/19 04:49 Albuterol (Ventolin Hfa) 2 puffs INH QID PRN PRN Reason: Shortness Of Breath Or Wheezin Albuterol (Ventolin Hfa) 1 puffs INH QIDR [facility] Stop: 01/15/19 15:59 Last Admin: 12/18/18 19:47 Dose: 1 puffs Documented by: Amitriptyline HCl (Elavil) 100 mg PO [facility] Stop: 01/15/19 20:59 Last Admin: 12/18/18 20:44 Dose: 100 mg Documented by: Aspirin (Ecotrin Ectab) 81 mg PO QAM [facility] Stop: 01/15/19 08:59 Last Admin: 12/18/18 08:08 Dose: 81 mg Documented by: Atenolol (Tenormin) 50 mg PO QAM [facility] Stop: 01/15/19 08:59 Last Admin: 12/18/18 07:59 Dose: 50 mg Documented by: Calamine/Phenol (Calmoseptine) 1 appln EXT TID PRN PRN Reason: skin breakdown prevention Stop: 01/15/19 04:49 Clopidogrel Bisulfate (Plavix) 75 mg PO QAM [facility] Stop: 01/15/19 08:59 Last Admin: 12/18/18 07:59 Dose: 75 mg Documented by: Dextrose (Dextrose 50%) 25 - 50 ml IV UD PRN; Protocol PRN Reason: Hypoglycemia Protocol Stop: 01/15/19 14:38 Donepezil HCl (Aricept) 5 mg PO HS [facility] Stop: 01/15/19 20:59 Last Admin: 12/18/18 20:45 Dose: 5 mg Documented by: Duloxetine HCl (Cymbalta) 60 mg PO BID@0730,1130 [facility] Stop: 01/15/19 07:29 Last Admin: 12/18/18 13:04 Dose: 60 mg Documented by: Estrogens Conjugated (Premarin Vag) 1 appln PV MoWeFr@0900 [facility] Stop: 01/17/19 08:59 Last Admin: 12/18/18 17:13 Dose: 1 appln Documented by: Fluticasone Propionate (Flonase) 1 sprays NA BID [facility] Stop: 01/15/19 08:59 Last Admin: 12/18/18 20:44 Dose: 1 sprays Documented by: Gabapentin (Neurontin) 300 mg PO TIDM [facility] Stop: 01/15/19 07:59 Last Admin: 12/18/18 17:18 Dose: 300 mg Documented by: Glucagon (Glucagen) 1 mg SQ UD PRN; Protocol PRN Reason: Hypoglycemia Protocol Stop: 01/15/19 14:38 Glucosamine Sulfate (Glucosamine Sulfate) [facility] Stop: 01/15/19 08:59 Last Admin: 12/18/18 08:00 Dose: 1,500 mg Documented by: Glucose (Glucose 40%) 15 - 30 gm PO UD PRN; Protocol PRN Reason: Hypoglycemia Protocol Stop: 01/15/19 14:38 Glucose (Dex4 Glucose) 4 - 8 tabs PO UD PRN; Protocol PRN Reason: Hypoglycemia Protocol Stop: 01/15/19 14:38 Heparin Sodium (Beef Lung) (Heparin Sod 10 Unit/Ml Flush) 5 ml FLUSH PRN PRN PRN Reason: PICC LINE Stop: 01/17/19 04:37 Last Admin: 12/18/18 07:52 Dose: 5 ml Documented by: Heparin Sodium (Porcine) (Heparin Sodium (Porcine)) 5,000 units SQ Q12 [facility] Stop: 01/15/19 08:59 Last Admin: 12/18/18 20:42 Dose: 5,000 units Documented by: Vancomycin HCl 1,500 mg/ (Sodium Chloride) 530 mls @ 200 mls/hr IV Q14H [facility]; Protocol Stop: 12/28/18 04:59 Last Admin: 12/18/18 19:46 Dose: 200 mls/hr Documented by: Insulin Aspart (Novolog Flexpen) 0 units SC ACHS [facility] Stop: 01/15/19 16:29 Last Admin: 12/18/18 20:41 Dose: 1 units Documented by: Ipratropium [place] (Atrovent Hfa) 2 puffs INH QID [facility] Stop: 01/15/19 08:59 Last Admin: 12/18/18 20:43 Dose: 2 puffs Documented by: Levothyroxine Sodium (Synthroid) 250 mcg PO DAILYBB [facility] Stop: 01/15/19 06:29 Last Admin: 12/18/18 05:54 Dose: 250 mcg Documented by: Lorazepam (Ativan) 1 mg PO HS [facility] Stop: 01/15/19 20:59 Last Admin: 12/18/18 20:43 Dose: 1 mg Documented by: Magnesium Hydroxide (Milk Of Magnesia) 20 ml PO DAILY PRN PRN Reason: Constipation Stop: 01/15/19 04:49 Metolazone (Zaroxolyn) 2.5 mg PO MoTh@0900 [facility] Stop: 01/17/19 08:59 Last Admin: 12/18/18 08:00 Dose: 2.5 mg Documented by: Mirabegron (Myrbetriq Er) 50 mg PO QAM [facility] Stop: 01/15/19 08:59 Last Admin: 12/18/18 07:59 Dose: 50 mg Documented by: Miscellaneous (Order Awaiting Action) 1 ea N/A QS [facility] Stop: 01/15/19 07:59 Last Admin: 12/18/18 17:14 Dose: Not Given Documented by: Miscellaneous (Order Awaiting Action) 1 ea N/A QS [facility] Stop: 01/15/19 07:59 Last Admin: 12/18/18 17:14 Dose: Not Given Documented by: Miscellaneous (Carbohydrates For Hypoglycemia) 15 - 30 gm PO UD PRN PRN Reason: Hypoglycemia Treatment Stop: 01/15/19 14:38 Miscellaneous Information (Consult) 1 ea N/A UD PRN PRN Reason: Consult Stop: 01/15/19 04:49 Montelukast Sodium (Singulair) 10 mg PO [facility] Stop: 01/15/19 20:59 Last Admin: 12/18/18 20:44 Dose: 10 mg Documented by: Multivitamins (Multivitamin Tab) [facility] Stop: 01/15/19 08:59 Last Admin: 12/18/18 08:00 Dose: 1 tab Documented by: Multivitamins/Minerals (Caltrate Plus) 1 tab PO BIDM [facility] Stop: 01/15/19 07:59 Last Admin: 12/18/18 17:17 Dose: 1 tab Documented by: Pantoprazole Sodium (Protonix) 40 mg PO BIDM [facility] Stop: 01/15/19 07:59 Last Admin: 12/18/18 17:18 Dose: 40 mg Documented by: Polyethylene Glycol (Miralax Powder Packet) 17 gm PO DAILY PRN PRN Reason: Constipation Stop: 01/15/19 04:49 Ranitidine HCl (Zantac) 150 mg PO BIDM [facility] Stop: 01/15/19 16:59 Last Admin: 12/18/18 17:19 Dose: 150 mg Documented by: Sertraline HCl (Zoloft) [facility] Stop: 01/15/19 08:59 Last Admin: 12/18/18 08:01 Dose: 25 mg Documented by: Spironolactone (Aldactone) 25 [facility] Stop: 01/15/19 08:59 Last Admin: 12/18/18 08:01 Dose: 25 mg Documented by: Tamsulosin HCl (Flomax) 0.4 mg PO QAM [facility] Stop: 01/15/19 08:59 Last Admin: 12/18/18 07:59 Dose: 0.4 mg Documented by: Tramadol HCl (Ultram) 50 mg PO Q6H PRN PRN Reason: Pain Stop: 01/15/19 04:49 Last Admin: 12/18/18 07:06 Dose: 50 mg Documented by: Trazodone HCl (Desyrel) 200 mg PO [facility] Stop: 01/15/19 20:59 Last Admin: 12/18/18 20:44 Dose: 200 mg Documented by: Vitamin B Complex (Vitamin B Complex) 1 tab PO QAM [facility] Stop: 01/15/19 08:59 Last Admin: 12/18/18 08:00 Dose: 1 tab Documented by: Resident Activity Tracking Resident Involvement: Resident Care Provided Care Provided: Adult Hospital Medicine
[2018-12-18] MEDS: LORazepam 1 MG TAB PO SCH (20:43)
[2018-12-18] MEDS: AMITRIPTYLINE HCL 100 MG TAB PO SCH (20:44)
[2018-12-18] MEDS: TRAZODONE HCL 100 MG TAB PO SCH (20:44)
[2018-12-18] MEDS: MONTELUKAST SODIUM 10 MG TABLET PO SCH (20:44)
[2018-12-18] MEDS: DONEPEZIL HCL 5 MG TAB PO SCH (20:45)
--- NOTE | 2018-12-18 21:11 | Pharmacy Report ---
Pharmacy Abx Dose Short Note - Date of Service December 18, 2018 - Assessment & Plan A/P Vanco trough at [facility] is therapeutic, 16.4mcg/mL for SST. Will continue with current dose and regimen barring any acute fluctuations in clinical status. No further troughs ordered at this juncture. Pharmacy will continue to follow and will adjust dose/frequency as necessary. Thank you.
[2018-12-19] MEDS: LEVOTHYROXINE SODIUM 125 MCG TABLET PO SCH (06:27)
[2018-12-19] MEDS: RESTASIS~ORDER AWAITING ACTION SCH ×3 (08:41→23:19)
[2018-12-19] MEDS: VANCOMYCIN HCL 1,500 MG in SODIUM CHLORIDE 0.9% 500 ML IV SCH ×2 (08:45→21:51)
[2018-12-19] MEDS: GABAPENTIN 300 MG CAP PO SCH ×3 (08:45→16:54)
[2018-12-19] MEDS: PANTOprazole 40 MG TAB PO SCH ×2 (08:45→16:54)
[2018-12-19] MEDS: TRAMADOL HCL 50 MG TABLET PO PRN ×2 (08:45→15:07)
[2018-12-19] MEDS: ACETAMINOPHEN 500 MG TAB PO PRN (08:45)
[2018-12-19] MEDS: SPIRONOLACTONE 25 MG TAB PO SCH (08:46)
[2018-12-19] MEDS: GLUCOSAMINE SULFATE 500 MG CAP PO SCH (08:46)
[2018-12-19] MEDS: DULOXETINE HCL 60 MG CAP PO SCH ×2 (08:46→12:42)
[2018-12-19] MEDS: FLUTICASONE PROPIONATE NA SPR 16 GM BTL SCH ×2 (08:46→20:49)
[2018-12-19] MEDS: CLOPIDOGREL BISULFATE 75 MG TAB PO SCH (08:46)
[2018-12-19] MEDS: IPRATROPIUM BROMIDE HFA INHALER INH SCH ×4 (08:47→20:49)
[2018-12-19] MEDS: TAMSULOSIN HCL 0.4 MG CAP PO SCH (08:47)
[2018-12-19] MEDS: SERTRALINE HCL 50 MG TABLET PO SCH (08:47)
[2018-12-19] MEDS: CALCIUM 600MG + VIT D 400 IU TAB PO SCH ×2 (08:47→16:54)
[2018-12-19] MEDS: ASPIRIN 81 MG ECTAB PO SCH (08:47)
[2018-12-19] MEDS: VITAMIN B COMPLEX TAB PO SCH (08:47)
[2018-12-19] MEDS: HEPARIN SOD 5,000 UNIT/0.5 ML VIAL SQ SCH ×2 (08:48→20:50)
[2018-12-19] MEDS: ALBUTEROL HFA 8 GM INHALER INH SCH ×4 (08:48→20:49)
[2018-12-19] MEDS: MULTIVITAMIN TAB PO SCH (08:48)
[2018-12-19] MEDS: ATENOLOL 50 MG TABLET PO SCH (08:48)
[2018-12-19] MEDS: MIRABEGRON ER 25 MG TAB PO SCH (08:48)
[2018-12-19] MEDS: INSULIN ASPART 100 UNITS/ML 3 ML PEN SC SCH ×4 (08:50→20:50)
--- NOTE | 2018-12-19 10:13 | Family Medicine Progress Note ---
Date of Service December 19, 2018 Assessment & Plan (1) Cellulitis of left le-year-old female was admitted on 16 December 2018 for confusion and worsening left lower extremity erythema / pain. Please see recent discharge summary on 14Dec2018 as well regarding her previous treatment for lower e xtremity cellulitis with lymphangitis. #Left lower extremity cellulitis with acute ascending lymphangitis: -During previous hospitalization, received single dose of vancomycin, Zosyn ongoing, then transitioned to Keflex as outpatient. Failed PO keflex, worsening erythema. Afebrile, no leukocytosis, as well as negative procalcitonin and lactate. -Patient may have a resistant staph/strep cellulitis as source. Gram-negative bacteria seems less likely. -No DVT on 06Apr LLE Doppler u/s -No osteo or frx on 06Apr XR tib-fib -02Apr BCx no growth final. Repeat 06Apr BCx with NGTD. -06Apr started on vancomycin and Zosyn. Plan to clinically follow and then eventually transition to Bactrim. Showing some initial improvement on this antibiotic regimen. -07Apr zosyn DCd. -cont Tramadol 50mg PO q6h PRN, tylenol prn. -Stable on ongoing vancomycin. Awaiting more overt clinical improvement before transition to PO bactrim. -order wound c/s for compression, as venous stasis may be contributory. #Poor venous access: -Due to issues with obtaining lasting PIV access, discussed with patient and obtained written consent for PICC placement 07Apr. #Confusion: -likely aggravated by metabolic encephalopathy in the setting of lower extremity cellulitis. -Not clinically evident x48h. -resolved. -follow. #Chronic diastolic CHF: -Stable, no acute issues. Initially held her diuretics due to suspected mild dehydration. Gently rehydrated with IV fluids on admission. Restarted her metolazone. Currently euvolemic Code status: Full code. Diet: Heart healthy, DM2. DVT prophy: Heparin q12h. On plavix. Dispo: MedSurg. PT/OT. Patient is a resident of [facility]. PICC in place. Ongoing medical problems: #Anemia: Admit Hb 10.1, around her baseline. Monitoring. #Hypertension, coronary artery disease: Continue aspirin, atenolol, Plavix, metolazone, spironolactone. #Hypothyroidism: Continue levothyroxine. Last TSH 18Feb 0.89. #Hyponatremia: No acute issues. Chronically in the upper 120s. Admit 129. Monitoring. #DM type II, diabetic peripheral neuropathy: HbA1c was 6.1 in March 2018. On home Neurontin. Sliding scale coverage here. Cont home Gabapentin 300mg TID. #Dementia, prior TIA, depression: On prior discharge, was on amitriptyline, donepezil, cymbalta 60mg BID, lorazepam 1mg PO hs, sertraline, and trazodone. Continued here, although may benefit from PCP to review for polypharmacy. #COPD, YARI: Continue Pro Air, Atrovent, Mucinex, Flonase, and singulair. Continue home CPAP. #GERD: On home ranitidine and Protonix. #Morbid obesity: BMI > 50. #Chronic interstitial cystitis, vaginal prolapse: On Myrbetriq and Flomax. #PE in 2009. (2) Confusion: (3) Diastolic CHF, chronic: (4) Hypomagnesemia: (5) Anemia, iron deficiency: (6) Hypertension: (7) CAD (coronary artery disease): (8) Hypothyroidism (acquired): (9) Hyponatremia: (10) Diabetic peripheral neuropathy associated with type 2 diabetes mellitus: (11) COPD (chronic obstructive pulmonary disease): (12) YARI (obstructive sleep apnea): (13) GERD (gastroesophageal reflux disease): (14) Morbid obesity with BMI of 50.0-59.9, adult: (15) Chronic interstitial cystitis: Supervising Physician Co-Signing Physician Notes Resident Physician Supervision Note: I independently interviewed and examined the patient and verified the posada history and physical, reviewed labs and image studies, discussed the case with the resident Dr. Pritchard and agree with the findings and care plan. Subjective Pt is interviewed and examined at bedside today. She states she wore her cpap most of the night last night, but still wakes up with a headache. Overall, she thinks her leg and GORMAN are improving. She cannot recall if she has ever had a brain scan to evaluate her GORMAN. She endorses feeling depressed. No other complaints this AM. Review of Systems All systems reviewed & are unremarkable except as noted in HPI & below Physical Exam Vital Signs (Past 24 Hours): Last Vital Signs Temp 36.6 C 12/19/18 08:20 Pulse 80 12/19/18 08:44 Resp 20 12/19/18 08:20 BP 116/76 12/19/18 08:44 Pulse Ox 94 12/19/18 08:20 Physical Exam: Vitals noted as above and within normal limits . GENERAL: Awake, alert to person, place, and time, nontoxic-appearing, in no distress HENT: Normocephalic, atraumatic. . Mucus membranes appear moist. EYES: Normal conjunctiva. Sclera non-icteric. EOMI. NECK: Supple. Full range of motion. RESPIRATORY: Clear to auscultation. Normal work of breathing. CARDIAC: Regular rate, normal rhythm. Extremities warm and well perfused. ABDOMEN: Soft, non-distended. Bowel sounds are normal. LOWER EXTREMITIES: Inspection of calves reveal equal size bilaterally. They are LLE with tenderness to palpation, erythema stable. Now no increased warmth in LLE. Still no drainage or weeping. NEURO: No focal gross focal motor deficits noted. Sensation in tact. CN II-XII grossly in tact. SKIN: Rash as above. No jaundice noted. PICC in place, right UE. PSYCH: Appropriate mood and affect. Cooperative. Exam as done by Radha Pritchard MD, A P Supervisor. Results & Data Medications Administered Current Inpatient Medications Acetaminophen (Tylenol) 1,000 mg PO Q8 PRN PRN Reason: Pain Stop: 01/15/19 04:49 Last Admin: 12/19/18 08:45 Dose: 1,000 mg Documented by: Acetaminophen (Tylenol) 650 mg PO Q4H PRN PRN Reason: pain/fever Stop: 01/15/19 04:49 Albuterol (Ventolin Hfa) 2 puffs INH QID PRN PRN Reason: Shortness Of Breath Or Wheezin Albuterol (Ventolin Hfa) 1 puffs INH QIDR [facility] Stop: 01/15/19 15:59 Last Admin: 12/19/18 16:53 Dose: 1 puffs Documented by: Amitriptyline HCl (Elavil) 100 mg PO HS [facility] Stop: 01/15/19 20:59 Last Admin: 12/18/18 20:44 Dose: 100 mg Documented by: Aspirin (Ecotrin Ectab) 81 mg PO QAM [facility] Stop: 01/15/19 08:59 Last Admin: 12/19/18 08:47 Dose: 81 mg Documented by: [facility]ten[facility] ([facility]ormin) [facility] [place] Stop: 01/15/19 08:59 Last Admin: 12/19/18 08:48 Dose: 50 mg Documented by: Calamine/Phenol (Calmoseptine) 1 appln EXT TID PRN PRN Reason: skin breakdown prevention Stop: 01/15/19 04:49 Clopidogrel Bisulfate (Plavix) 75 [facility] [place] Stop: 01/15/19 08:59 Last Admin: 12/19/18 08:46 Dose: 75 mg Documented by: Dextrose (Dextrose 50%) 25 - 50 ml IV UD PRN; Protocol PRN Reason: Hypoglycemia Protocol Stop: 01/15/19 14:38 Donepezil HCl (Aricept) 5 mg PO HS [facility] Stop: 01/15/19 20:59 Last Admin: 12/18/18 20:45 Dose: 5 mg Documented by: Duloxetine HCl (Cymbalta) 60 mg PO BID@0730,1130 [facility] Stop: 01/15/19 07:29 Last Admin: 12/19/18 12:42 Dose: 60 mg Documented by: Estrogens Conjugated (Premarin Vag) 1 appln PV MoWeFr@0900 [facility] Stop: 01/17/19 08:59 Last Admin: 12/18/18 17:13 Dose: 1 appln Documented by: Fluticasone Propionate (Flonase) 1 sprays NA BID [facility] Stop: 01/15/19 08:59 Last Admin: 12/19/18 08:46 Dose: 1 sprays Documented by: Gabapentin (Neurontin) 300 mg PO TIDM [facility] Stop: 01/15/19 07:59 Last Admin: 12/19/18 16:54 Dose: 300 mg Documented by: Glucagon (Glucagen) 1 mg SQ UD PRN; Protocol PRN Reason: Hypoglycemia Protocol Stop: 01/15/19 14:38 Glucosamine Sulfate (Glucosamine Sulfate) 1,500 [facility] [place] Stop: 01/15/19 08:59 Last Admin: 12/19/18 08:46 Dose: 1,500 mg Documented by: Glucose (Glucose 40%) 15 - 30 gm PO UD PRN; Protocol PRN Reason: Hypoglycemia Protocol Stop: 01/15/19 14:38 Glucose (Dex4 Glucose) 4 - 8 tabs PO UD PRN; Protocol PRN Reason: Hypoglycemia Protocol Stop: 01/15/19 14:38 Heparin Sodium (Beef Lung) (Heparin Sod 10 Unit/Ml Flush) 5 ml FLUSH PRN PRN PRN Reason: PICC LINE Stop: 01/17/19 04:37 Last Admin: 12/19/18 12:09 Dose: 5 ml Documented by: Heparin Sodium (Porcine) (Heparin Sodium (Porcine)) 5,000 units SQ Q12 [facility] Stop: 01/15/19 08:59 Last Admin: 12/19/18 08:48 Dose: 5,000 units Documented by: Vancomycin HCl 1,500 mg/ (Sodium Chloride) 530 mls @ 200 mls/hr IV Q14H [facility]; Protocol Stop: 12/28/18 04:59 Last Infusion: 12/19/18 12:11 Dose: Infused Documented by: Insulin Aspart (Novolog Flexpen) 0 units SC ACHS [facility] Stop: 01/15/19 16:29 Last Admin: 12/19/18 17:40 Dose: 3 units Documented by: Ipratropium [place] (Atrovent Hfa) 2 puffs INH QID [facility] Stop: 01/15/19 08:59 Last Admin: 12/19/18 16:53 Dose: 2 puffs Documented by: Levothyroxine Sodium (Synthroid) 250 mcg PO DAILYBB [facility] Stop: 01/15/19 06:29 Last Admin: 12/19/18 06:27 Dose: 250 mcg Documented by: Lorazepam (Ativan) 1 mg PO HS [facility] Stop: 01/15/19 20:59 Last Admin: 12/18/18 20:43 Dose: 1 mg Documented by: Magnesium Hydroxide (Milk Of Magnesia) 20 ml PO DAILY PRN PRN Reason: Constipation Stop: 01/15/19 04:49 Metolazone (Zaroxolyn) 2.5 mg PO MoTh@0900 [facility] Stop: 01/17/19 08:59 Last Admin: 12/18/18 08:00 Dose: 2.5 mg Documented by: Mirabegron (Myrbetriq Er) 50 mg PO QAM [facility] Stop: 01/15/19 08:59 Last Admin: 12/19/18 08:48 Dose: 50 mg Documented by: Miscellaneous (Order Awaiting Action) 1 ea N/A QS [facility] Stop: 01/15/19 07:59 Last Admin: 12/19/18 15:18 Dose: Not Given Documented by: Miscellaneous (Order Awaiting Action) 1 ea N/A QS [facility] Stop: 01/15/19 07:59 Last Admin: 12/19/18 15:18 Dose: Not Given Documented by: Miscellaneous (Carbohydrates For Hypoglycemia) 15 - 30 gm PO UD PRN PRN Reason: Hypoglycemia Treatment Stop: 01/15/19 14:38 Miscellaneous Information (Consult) 1 ea N/A UD PRN PRN Reason: Consult Stop: 01/15/19 04:49 Montelukast Sodium (Singulair) 10 mg PO HS [facility] Stop: 01/15/19 20:59 Last Admin: 12/18/18 20:44 Dose: 10 mg Documented by: Multivitamins (Multivitamin Tab) [facility] [place] Stop: 01/15/19 08:59 Last Admin: 12/19/18 08:48 Dose: 1 tab Documented by: Multivitamins/Minerals (Caltrate Plus) 1 tab PO BIDM [facility] Stop: 01/15/19 07:59 Last Admin: 12/19/18 16:54 Dose: 1 tab Documented by: Pantoprazole Sodium (Protonix) 40 mg PO BIDM [facility] Stop: 01/15/19 07:59 Last Admin: 12/19/18 16:54 Dose: 40 mg Documented by: Polyethylene Glycol (Miralax Powder Packet) 17 gm PO DAILY PRN PRN Reason: Constipation Stop: 01/15/19 04:49 Ranitidine HCl (Zantac) 150 mg PO BIDM [facility] Stop: 01/15/19 16:59 Last Admin: 12/19/18 16:55 Dose: 150 mg Documented by: Sertraline HCl (Zoloft) 25 mg PO [facility] Stop: 01/15/19 08:59 Last Admin: 12/19/18 08:47 Dose: 25 mg Documented by: Spironolactone (Aldactone) 25 mg PO QAM [facility] Stop: 01/15/19 08:59 Last Admin: 12/19/18 08:46 Dose: 25 mg Documented by: Tamsulosin HCl (Flomax) 0.4 mg PO [facility] Stop: 01/15/19 08:59 Last Admin: 12/19/18 08:47 Dose: 0.4 mg Documented by: Tramadol HCl (Ultram) 50 mg PO Q6H PRN PRN Reason: Pain Stop: 01/15/19 04:49 Last Admin: 12/19/18 15:07 Dose: 50 mg Documented by: Trazodone HCl (Desyrel) 200 mg PO [facility] Stop: 01/15/19 20:59 Last Admin: 12/18/18 20:44 Dose: 200 mg Documented by: Vitamin B Complex (Vitamin B Complex) 1 tab PO QAM [facility] Stop: 01/15/19 08:59 Last Admin: 12/19/18 08:47 Dose: 1 tab Documented by: Resident Activity Tracking Resident Involvement: Resident Care Provided Care Provided: Adult Hospital Medicine
[2018-12-19] MEDS: MONTELUKAST SODIUM 10 MG TABLET PO SCH (20:49)
[2018-12-19] MEDS: TRAZODONE HCL 100 MG TAB PO SCH (20:49)
[2018-12-19] MEDS: LORazepam 1 MG TAB PO SCH (20:49)
[2018-12-19] MEDS: DONEPEZIL HCL 5 MG TAB PO SCH (20:49)
[2018-12-19] MEDS: AMITRIPTYLINE HCL 100 MG TAB PO SCH (21:50)
[2018-12-20] MEDS: LEVOTHYROXINE SODIUM 125 MCG TABLET PO SCH (05:43)
[2018-12-20 06:59] LABS: BUN Creatinine Ratio 13.2 (10-20); Calcium 9.1 mg/dl (8.5-10.1); Creatinine Clr Calc Pharmacy 79.2 ml/min; Est GFR (African American) 89.9; Est GFR (Non-African American) 77.6; Potassium 3.8 mmol/L (3.5-5.1)
[2018-12-20] MEDS: SERTRALINE HCL 50 MG TABLET PO SCH (08:36)
[2018-12-20] MEDS: SPIRONOLACTONE 25 MG TAB PO SCH (08:36)
[2018-12-20] MEDS: TAMSULOSIN HCL 0.4 MG CAP PO SCH (08:36)
[2018-12-20] MEDS: ATENOLOL 50 MG TABLET PO SCH (08:36)
[2018-12-20] MEDS: ASPIRIN 81 MG ECTAB PO SCH (08:36)
[2018-12-20] MEDS: VITAMIN B COMPLEX TAB PO SCH (08:37)
[2018-12-20] MEDS: GLUCOSAMINE SULFATE 500 MG CAP PO SCH (08:37)
[2018-12-20] MEDS: MIRABEGRON ER 25 MG TAB PO SCH (08:37)
[2018-12-20] MEDS: GABAPENTIN 300 MG CAP PO SCH ×3 (08:37→17:11)
[2018-12-20] MEDS: CLOPIDOGREL BISULFATE 75 MG TAB PO SCH (08:38)
[2018-12-20] MEDS: DULOXETINE HCL 60 MG CAP PO SCH ×2 (08:38→11:58)
[2018-12-20] MEDS: PANTOprazole 40 MG TAB PO SCH ×2 (08:38→17:12)
[2018-12-20] MEDS: CALCIUM 600MG + VIT D 400 IU TAB PO SCH ×2 (08:38→17:10)
[2018-12-20] MEDS: MULTIVITAMIN TAB PO SCH (08:38)
[2018-12-20] MEDS: IPRATROPIUM BROMIDE HFA INHALER INH SCH ×4 (08:39→21:11)
[2018-12-20] MEDS: FLUTICASONE PROPIONATE NA SPR 16 GM BTL SCH ×2 (08:39→20:55)
[2018-12-20] MEDS: HEPARIN SOD 5,000 UNIT/0.5 ML VIAL SQ SCH ×2 (08:43→21:13)
[2018-12-20] MEDS: RESTASIS~ORDER AWAITING ACTION SCH ×3 (08:44→23:00)
[2018-12-20] MEDS: INSULIN ASPART 100 UNITS/ML 3 ML PEN SC SCH ×4 (08:45→21:18)
[2018-12-20] MEDS: ALBUTEROL HFA 8 GM INHALER INH SCH ×4 (09:40→20:51)
[2018-12-20] MEDS: PREMARIN VAG CRM 14 APPLN/30 GM TUBE PV SCH (09:40)
--- NOTE | 2018-12-20 11:14 | Family Medicine Progress Note ---
Date of Service December 20, 2018 Assessment & Plan (1) Cellulitis of left le-year-old female was admitted on 16 December 2018 for confusion and worsening left lower extremity erythema / pain. Please see recent discharge summary on 14Dec2018 as well regarding her previous treatment for lower extremity cellulitis with lymphangitis. #Left lower extremity cellulitis with acute ascending lymphangitis: -During previous hospitalization, received single dose of vancomycin, Zosyn ongoing, then transitioned to Keflex as outpatient. Failed PO keflex, worsening erythema. -This admission: Afebrile, no leukocytosis, as well as negative procalcitonin and lactate. -Patient may have a resistant staph/strep cellulitis as source. Gram-negative bacteria seems less likely. -No DVT on 06Apr LLE Doppler u/s -No osteo or frx on 06Apr XR tib-fib -02Apr BCx no growth final. Repeat 06Apr BCx with NGTD. -06Apr started on vancomycin and Zosyn. Plan to clinically follow and then eventually transition to Bactrim. Showing some initial improvement on this antibiotic regimen. -07Apr zosyn DCd. -cont Tramadol 50mg PO q6h PRN, tylenol prn. -Clinical improvement today: 10Apr transition to PO bactrim - with plan to discharge on this to SNF/home. -Appreciate wound c/s for compression, as venous stasis may be contributory - tolerating well. #Poor venous access: -Due to issues with obtaining lasting PIV access, discussed with patient and obtained written consent for PICC placement 07Apr. -likely will not need on discharge. #Confusion: -likely aggravated by metabolic encephalopathy in the setting of lower extremity cellulitis. -Not clinically evident x72h. -resolved. -follow. #Chronic diastolic CHF: -Stable, no acute issues. Initially held her diuretics due to suspected mild dehydration. Gently rehydrated with IV fluids on admission. Restarted her metolazone. Currently euvolemic Code status: Full code. Diet: Heart healthy, DM2. DVT prophy: Heparin q12h. On plavix. Dispo: MedSurg. PT/OT. Rehab potential -- Patient is a resident of [facility] and acc to daughter (who is a nurse) she will likely not qualify to return given her need for assistance with transfer. PICC in place. Ongoing medical problems: #Chronic pain: on home tramadol 50mg q6h regimen #Anemia: Admit Hb 10.1, around her baseline. Monitoring. #Hypertension, coronary artery disease: Continue aspirin, atenolol, Plavix, metolazone, spironolactone. #Hypothyroidism: Continue levothyroxine. Last TSH 18Feb 0.89. #Hyponatremia: No acute issues. Chronically in the upper 120s. Admit 129. Monitoring. #DM type II, diabetic peripheral neuropathy: HbA1c was 6.1 in March 2018. On home Neurontin. Sliding scale coverage here. Cont home Gabapentin 300mg TID. #Dementia, prior TIA, depression: On prior discharge, was on amitriptyline, donepezil, cymbalta 60mg BID, lorazepam 1mg PO hs, sertraline, and trazodone. Continued here. Followed by psychiatry Dr. Mckenzie. #COPD, YARI: Continue Pro Air, Atrovent, Mucinex, Flonase, and singulair. Continue home CPAP. #GERD: On home ranitidine and Protonix. #Morbid obesity: BMI > 50. #Chronic interstitial cystitis, vaginal prolapse: On Myrbetriq, Flomax and topical conjugated estrogens. #PE in 2009. (2) Confusion: (3) Diastolic CHF, chronic: (4) Hypomagnesemia: (5) Anemia, iron deficiency: (6) Hypertension: (7) CAD (coronary artery disease): (8) Hypothyroidism (acquired): (9) Hyponatremia: (10) Diabetic peripheral neuropathy associated with type 2 diabetes mellitus: (11) COPD (chronic obstructive pulmonary disease): (12) YARI (obstructive sleep apnea): (13) GERD (gastroesophageal reflux disease): (14) Morbid obesity with BMI of 50.0-59.9, adult: (15) Chronic interstitial cystitis: Supervising Physician Co-Signing Physician Notes Resident Physician Supervision Note: I independently interviewed and examined the patient and verified the posada history and physical, reviewed labs and image studies, discussed the case with the resident Dr. Pritchard and agree with the findings and care plan. Subjective Interiewed while pt sitting up in chair. More alert today. Daughter ([facility] nurse) accompanies her, states she does not think [facility] (personal care) will take her when she needs so much assistance with transfer. Referrals out for SNF rehab. Pt states her pain is better in LE. Endorses depression. Endorses [facility]. Tolerating PO well, ambulating with assistance. No acute events overnight. Does not endorse any other complaints at this time. Review of Systems All systems reviewed & are unremarkable except as noted in HPI & below Physical Exam Vital Signs (Past 24 Hours): Last Vital Signs Temp 36.6 C 12/20/18 08:00 Pulse 81 12/20/18 08:00 Resp 16 12/20/18 08:00 BP 98/65 L 12/20/18 08:00 Pulse Ox 94 12/20/18 08:00 Physical Exam: Vitals noted and reviewed, as above GENERAL: no acute distress HEAD: normocephalic atraumatic ENT: sclerae normal, trachea midline RESP: normal work of breathing CV: regular rate and rhythm ABDOMEN: nondistended LOWER EXTREMITIES: Inspection of calves reveal equal size bilaterally. + LLE with improving tenderness to palpation, erythema now less. Still no increased warmth in LLE. Still no drainage or weeping. SKIN: improving LLE cellulitis PSYCH: flat mood and affect Results & Data Laboratory Results 12/20/18 12/20/18 12/20/18 Range/Units 16:24 12:34 12:14 Sodium (136-145) mmol/L Potassium (3.5-5.1) mmol/L Chloride (98-107) mmol/L Carbon Dioxide (21-32) mmol/L Anion Gap (3-11) BUN (7-18) mg/dl Creatinine (0.6-1.2) mg/dl Est Cr Clr Drug Dosing ml/min Est GFR ( Amer) Est GFR (Non-Af Amer) BUN/Creatinine Ratio (10-20) Glucose (70-99) mg/dl POC Glucose 136 H 216 H (70-99) Calcium (8.5-10.1) mg/dl Vancomycin Trough 18.5 (See Comment) mcg/ml 12/20/18 12/20/18 12/19/18 Range/Units 07:38 05:55 20:02 Sodium 131 L (136-145) mmol/L Potassium 3.8 (3.5-5.1) mmol/L Chloride 94 L (98-107) mmol/L Carbon Dioxide 30 (21-32) mmol/L Anion Gap 7.0 (3-11) BUN 10 (7-18) mg/dl Creatinine 0.74 (0.6-1.2) mg/dl Est Cr Clr Drug Dosing 79.2 ml/min Est GFR ( Amer) 89.9 Est GFR (Non-Af Amer) 77.6 BUN/Creatinine Ratio 13.2 (10-20) Glucose 116 H (70-99) mg/dl POC Glucose 157 H 146 H (70-99) Calcium 9.1 (8.5-10.1) mg/dl Vancomycin Trough (See Comment) mcg/ml Medications Administered Current Inpatient Medications Acetaminophen (Tylenol) 1,000 mg PO Q8 PRN PRN Reason: Pain Stop: 01/15/19 04:49 Last Admin: 12/19/18 08:45 Dose: 1,000 mg Documented by: Acetaminophen (Tylenol) 650 mg PO Q4H PRN PRN Reason: pain/fever Stop: 01/15/19 04:49 Albuterol (Ventolin Hfa) 2 puffs INH QID PRN PRN Reason: Shortness Of Breath Or Wheezin Last Admin: 12/20/18 08:38 Dose: 2 puffs Documented by: Albuterol (Ventolin Hfa) 1 puffs INH QIDR [facility] Stop: 01/15/19 15:59 Last Admin: 12/20/18 16:04 Dose: 1 puffs Documented by: Amitriptyline HCl (Elavil) 100 mg PO [facility] Stop: 01/15/19 20:59 Last Admin: 12/19/18 21:50 Dose: 100 mg Documented by: Aspirin (Ecotrin Ectab) 81 mg PO [facility] Stop: 01/15/19 08:59 Last Admin: 12/20/18 08:36 Dose: 81 mg Documented by: [facility]tenol[facility] ([facility]ormin) [facility] Stop: 01/15/19 08:59 Last Admin: 12/20/18 08:36 Dose: 50 mg Documented by: Calamine/Phenol (Calmoseptine) 1 appln EXT TID PRN PRN Reason: skin breakdown prevention Stop: 01/15/19 04:49 Clopidogrel Bisulfate (Plavix) 75 mg PO [facility] Stop: 01/15/19 08:59 Last Admin: 12/20/18 08:38 Dose: 75 mg Documented by: Dextrose (Dextrose 50%) 25 - 50 ml IV UD PRN; Protocol PRN Reason: Hypoglycemia Protocol Stop: 01/15/19 14:38 Donepezil HCl (Aricept) 5 mg PO HS [facility] Stop: 01/15/19 20:59 Last Admin: 12/19/18 20:49 Dose: 5 mg Documented by: Duloxetine HCl (Cymbalta) 60 mg PO BID@0730,1130 [facility] Stop: 01/15/19 07:29 Last Admin: 12/20/18 11:58 Dose: 60 mg Documented by: Estrogens Conjugated (Premarin Vag) 1 appln PV MoWeFr@0900 [facility] Stop: 01/17/19 08:59 Last Admin: 12/20/18 09:40 Dose: 1 appln Documented by: Fluticasone Propionate (Flonase) 1 sprays NA BID [facility] Stop: 01/15/19 08:59 Last Admin: 12/20/18 08:39 Dose: 1 sprays Documented by: Gabapentin (Neurontin) 300 mg PO TIDM [facility] Stop: 01/15/19 07:59 Last Admin: 12/20/18 11:59 Dose: 300 mg Documented by: Glucagon (Glucagen) 1 mg SQ UD PRN; Protocol PRN Reason: Hypoglycemia Protocol Stop: 01/15/19 14:38 Glucosamine Sulfate (Glucosamine Sulfate) 1,500 mg PO QAM [facility] Stop: 01/15/19 08:59 Last Admin: 12/20/18 08:37 Dose: 1,500 mg Documented by: Glucose (Glucose 40%) 15 - 30 gm PO UD PRN; Protocol PRN Reason: Hypoglycemia Protocol Stop: 01/15/19 14:38 Glucose (Dex4 Glucose) 4 - 8 tabs PO UD PRN; Protocol PRN Reason: Hypoglycemia Protocol Stop: 01/15/19 14:38 Heparin Sodium (Beef Lung) (Heparin Sod 10 Unit/Ml Flush) 5 ml FLUSH PRN PRN PRN Reason: PICC LINE Stop: 01/17/19 04:37 Last Admin: 12/20/18 16:10 Dose: 5 ml Documented by: Heparin Sodium (Porcine) (Heparin Sodium (Porcine)) 5,000 units SQ Q12 [facility] Stop: 01/15/19 08:59 Last Admin: 12/20/18 08:43 Dose: 5,000 units Documented by: Insulin Aspart (Novolog Flexpen) 0 units SC ACHS [facility] Stop: 01/15/19 16:29 Last Admin: 12/20/18 13:58 Dose: 5 units Documented by: Ipratropium [place] (Atrovent Hfa) 2 puffs INH QID [facility] Stop: 01/15/19 08:59 Last Admin: 12/20/18 13:58 Dose: 2 puffs Documented by: Levothyroxine Sodium (Synthroid) 250 mcg PO DAILYBB [facility] Stop: 01/15/19 06:29 Last Admin: 12/20/18 05:43 Dose: 250 mcg Documented by: Lorazepam (Ativan) 1 mg PO [facility] Stop: 01/15/19 20:59 Last Admin: 12/19/18 20:49 Dose: 1 mg Documented by: Magnesium Hydroxide (Milk Of Magnesia) 20 ml PO DAILY PRN PRN Reason: Constipation Stop: 01/15/19 04:49 Metolazone (Zaroxolyn) 2.5 mg PO MoTh@0900 [facility] Stop: 01/17/19 08:59 Last Admin: 12/18/18 08:00 Dose: 2.5 mg Documented by: Mirabegron (Myrbetriq Er) 50 mg PO QAM [facility] Stop: 01/15/19 08:59 Last Admin: 12/20/18 08:37 Dose: 50 mg Documented by: Miscellaneous (Order Awaiting Action) 1 ea N/A QS [facility] Stop: 01/15/19 07:59 Last Admin: 12/20/18 16:06 Dose: Not Given Documented by: Miscellaneous (Order Awaiting Action) 1 ea N/A QS [facility] Stop: 01/15/19 07:59 Last Admin: 12/20/18 16:05 Dose: Not Given Documented by: Miscellaneous (Carbohydrates For Hypoglycemia) 15 - 30 gm PO UD PRN PRN Reason: Hypoglycemia Treatment Stop: 01/15/19 14:38 Montelukast Sodium (Singulair) 10 mg PO [facility] Stop: 01/15/19 20:59 Last Admin: 12/19/18 20:49 Dose: 10 mg Documented by: Multivitamins (Multivitamin Tab) [facility] Stop: 01/15/19 08:59 Last Admin: 12/20/18 08:38 Dose: 1 tab Documented by: Multivitamins/Minerals (Caltrate Plus) 1 tab PO BIDM [facility] Stop: 01/15/19 07:59 Last Admin: 12/20/18 08:38 Dose: 1 tab Documented by: Pantoprazole Sodium (Protonix) 40 mg PO BIDM [facility] Stop: 01/15/19 07:59 Last Admin: 12/20/18 08:38 Dose: 40 mg Documented by: Polyethylene Glycol (Miralax Powder Packet) 17 gm PO DAILY PRN PRN Reason: Constipation Stop: 01/15/19 04:49 Ranitidine HCl (Zantac) 150 mg PO BIDM [facility] Stop: 01/15/19 16:59 Last Admin: 12/20/18 08:38 Dose: 150 mg Documented by: Sertraline HCl (Zoloft) 25 mg PO QAM [facility] Stop: 01/15/19 08:59 Last Admin: 12/20/18 08:36 Dose: 25 mg Documented by: Spironolactone (Aldactone) 25 [facility] Stop: 01/15/19 08:59 Last Admin: 12/20/18 08:36 Dose: 25 mg Documented by: Tamsulosin HCl (Flomax) 0.4 mg [facility] Stop: 01/15/19 08:59 Last Admin: 12/20/18 08:36 Dose: 0.4 mg Documented by: Tramadol HCl (Ultram) 50 mg PO Q6H PRN PRN Reason: Pain Stop: 01/15/19 04:49 Last Admin: 12/20/18 16:01 Dose: 50 mg Documented by: Trazodone HCl (Desyrel) 200 mg PO [facility] Stop: 01/15/19 20:59 Last Admin: 12/19/18 20:49 Dose: 200 mg Documented by: Trimethoprim/Sulfamethoxazole (Septra Ds 800/160mg Tab) 1 tab PO Q12 [facility]; Protocol Stop: 12/30/18 20:59 Vitamin B Complex (Vitamin B Complex) 1 tab PO QAM [facility] Stop: 01/15/19 08:59 Last Admin: 12/20/18 08:37 Dose: 1 tab Documented by: Resident Activity Tracking Resident Involvement: Resident Care Provided Care Provided: Adult Hospital Medicine
[2018-12-20] MEDS ORDERED: VANCOMYCIN TROUGH ONE (12:30)
[2018-12-20] MEDS: VANCOMYCIN HCL 1,500 MG in SODIUM CHLORIDE 0.9% 500 ML IV SCH (14:00)
--- NOTE | 2018-12-20 14:16 | Pharmacy Report ---
Pharmacy Abx Dose Short Note - Date of Service December 20, 2018 - Assessment & Plan Assessment * 78 yo F with repeat visit 2 days after recent discharge for worsening cellulitis/erythema. Was on Zosyn and vancomycin during previous admission and discharged on cephalexin po. Has been on vancomycin this visit. Plan is to discharge on Bactrim po. * Patient remains afebrile Vancomycin * Goal vancomycin trough 15-20 mcg/mL * Can sometimes use lower goal for cellulitis but did not elect to do so as concern for MRSA (with possible higher vancomycin FAZAL) as patient worsened on cephalexin monotherapy and no cultures to help guide therapy / de- escalation at this time * Trough of 18.5 mcg/mL is therapeutic Plan * Continue vancomycin 1500 mg IV q14h * No repeat trough required unless renal function changes or therapy is extended beyond 7 days Pharmacy will continue to follow and will adjust dose/frequency as necessary. Thank you.
[2018-12-20] MEDS: TRAMADOL HCL 50 MG TABLET PO PRN (16:01)
[2018-12-20] MEDS: ACETAMINOPHEN 500 MG TAB PO PRN (17:06)
[2018-12-20] MEDS: TRAZODONE HCL 100 MG TAB PO SCH (20:53)
[2018-12-20] MEDS: DONEPEZIL HCL 5 MG TAB PO SCH (20:53)
[2018-12-20] MEDS: LORazepam 1 MG TAB PO SCH (21:12)
[2018-12-20] MEDS: SULFAMETHOXAZOLE/TRIMETHOPRIM DS 800/160MG TAB PO SCH (21:17)
[2018-12-20] MEDS: MONTELUKAST SODIUM 10 MG TABLET PO SCH (21:18)
[2018-12-20] MEDS: AMITRIPTYLINE HCL 100 MG TAB PO SCH (21:42)
[2018-12-21] MEDS: LEVOTHYROXINE SODIUM 125 MCG TABLET PO SCH (05:38)
[2018-12-21 06:47] LABS: BUN Creatinine Ratio 14.8 (10-20); Calcium 8.6 mg/dl (8.5-10.1); Creatinine Clr Calc Pharmacy 80.3 ml/min; Est GFR (African American) 91.4; Est GFR (Non-African American) 78.9; Potassium 3.7 mmol/L (3.5-5.1)
[2018-12-21] MEDS: MULTIVITAMIN TAB PO SCH (07:56)
[2018-12-21] MEDS: DULOXETINE HCL 60 MG CAP PO SCH ×2 (07:56→11:45)
[2018-12-21] MEDS: PANTOprazole 40 MG TAB PO SCH ×2 (07:56→18:16)
[2018-12-21] MEDS: CLOPIDOGREL BISULFATE 75 MG TAB PO SCH (07:56)
[2018-12-21] MEDS: ASPIRIN 81 MG ECTAB PO SCH (07:56)
[2018-12-21] MEDS: GABAPENTIN 300 MG CAP PO SCH ×3 (07:56→18:16)
[2018-12-21] MEDS: SPIRONOLACTONE 25 MG TAB PO SCH (07:59)
[2018-12-21] MEDS: GLUCOSAMINE SULFATE 500 MG CAP PO SCH (07:59)
[2018-12-21] MEDS: TAMSULOSIN HCL 0.4 MG CAP PO SCH (07:59)
[2018-12-21] MEDS: SERTRALINE HCL 50 MG TABLET PO SCH (07:59)
[2018-12-21] MEDS: VITAMIN B COMPLEX TAB PO SCH (08:00)
[2018-12-21] MEDS: ATENOLOL 50 MG TABLET PO SCH (08:00)
[2018-12-21] MEDS: MIRABEGRON ER 25 MG TAB PO SCH (08:00)
[2018-12-21] MEDS: CALCIUM 600MG + VIT D 400 IU TAB PO SCH ×2 (08:00→18:15)
[2018-12-21] MEDS: ALBUTEROL HFA 8 GM INHALER INH SCH ×4 (08:01→21:07)
[2018-12-21] MEDS: FLUTICASONE PROPIONATE NA SPR 16 GM BTL SCH ×2 (08:01→21:07)
[2018-12-21] MEDS: RESTASIS~ORDER AWAITING ACTION SCH ×3 (08:01→23:07)
[2018-12-21] MEDS: IPRATROPIUM BROMIDE HFA INHALER INH SCH ×4 (08:01→21:07)
[2018-12-21] MEDS: SULFAMETHOXAZOLE/TRIMETHOPRIM DS 800/160MG TAB PO SCH ×2 (08:01→21:13)
[2018-12-21] MEDS: HEPARIN SOD 5,000 UNIT/0.5 ML VIAL SQ SCH ×2 (08:02→21:08)
[2018-12-21] MEDS: INSULIN ASPART 100 UNITS/ML 3 ML PEN SC SCH ×4 (08:03→21:09)
[2018-12-21] MEDS: metOLazone 2.5 MG TABLET PO SCH (08:03)
--- NOTE | 2018-12-21 11:41 | Family Medicine Progress Note ---
Date of Service December 21, 2018 Assessment & Plan (1) Cellulitis of left le-year-old female was admitted on 16 December 2018 for confusion and worsening left lower extremity erythema / pain. Please see recent discharge summary on 14Dec2018 as well regarding her previous treatment for lower extremity cellulitis with lymphangitis. #Left lower extremity cellulitis with acute ascending lymphangitis: -During previous hospitalization, received single dose of vancomycin, Zosyn ongoing, then transitioned to Keflex as outpatient. Failed PO keflex, worsening erythema. -This admission: Afebrile, no leukocytosis, as well as negative procalcitonin and lactate. -Patient may have a resistant staph/strep cellulitis as source. Gram-negative bacteria seems less likely. -No DVT on 06Apr LLE Doppler u/s -No osteo or frx on 06Apr XR tib-fib -02Apr BCx no growth final. Repeat 06Apr BCx with NGTD. -06Apr started on vancomycin and Zosyn. Plan to clinically follow and then eventually transition to Bactrim. -07Apr zosyn DCd. 10Apr Vanc DC'ed. -cont Tramadol 50mg PO q6h PRN, tylenol prn. -10Apr transitioned to PO bactrim -Continual clinical improvement -Appreciate wound c/s for compression. Continue wrapping the legs. Reiterated outpatient compliance #Poor venous access: -Due to issues with obtaining lasting PIV access, discussed with patient and obtained written consent for PICC placement 07Apr. -likely will not need on discharge. #Confusion: -likely aggravated by metabolic encephalopathy in the setting of lower extremity cellulitis. -Not clinically evident x72h. -resolved. -follow. #Chronic diastolic CHF: -Stable, no acute issues. -Initially held her diuretics due to suspected mild dehydration. Gently rehydrated with IV fluids on admission. Restarted her metolazone. -Currently euvolemic Code status: Full code. Diet: Heart healthy, DM2. DVT prophy: Heparin q12h. On plavix. Dispo: MedSurg. PT/OT. Rehab potential -- Patient is a resident of [facility]. Await SNF. PICC in place - will DC on discharge. -11Apr -- I did speak at length with pt's son Elver at [phone] and updated thoroughly on progress. Answered all questions. Ongoing medical problems: #Chronic pain/headaches: on home tramadol 50mg q6h regimen, amitryptiline. #Anemia: Admit Hb 10.1, around her baseline. Monitoring. #Hypertension, coronary artery disease: Continue aspirin, atenolol, Plavix, metolazone, spironolactone. #Hypothyroidism: Continue levothyroxine. Last TSH 18Feb 0.89. #Hyponatremia: No acute issues. Chronically in the upper 120s. Admit 129. Monitoring. #DM type II, diabetic peripheral neuropathy: HbA1c was 6.1 in March 2018. On home Neurontin. Sliding scale coverage here. Cont home Gabapentin 300mg TID. #Dementia, prior TIA, depression: On prior discharge, was on amitriptyline, donepezil, cymbalta 60mg BID, lorazepam 1mg PO hs, sertraline, and trazodone. Continued here. Followed by psychiatry Dr. Mckenzie. #COPD, YARI: Continue Pro Air, Atrovent, Mucinex, Flonase, and singulair. Continue home CPAP. #GERD: On home ranitidine and Protonix. #Morbid obesity: BMI > 50. #Chronic interstitial cystitis, vaginal prolapse: On Myrbetriq, Flomax and topical conjugated estrogens. #PE in 2009. (2) Confusion: (3) Diastolic CHF, chronic: (4) Hypomagnesemia: (5) Anemia, iron deficiency: (6) Hypertension: (7) CAD (coronary artery disease): (8) Hypothyroidism (acquired): (9) Hyponatremia: (10) Diabetic peripheral neuropathy associated with type 2 diabetes mellitus: (11) COPD (chronic obstructive pulmonary disease): (12) YARI (obstructive sleep apnea): (13) GERD (gastroesophageal reflux disease): (14) Morbid obesity with BMI of 50.0-59.9, adult: (15) Chronic interstitial cystitis: Supervising Physician Co-Signing Physician Notes Resident Physician Supervision Note: I independently interviewed and examined the patient and verified the posada history and physical, reviewed labs and image studies, discussed the case with the resident Dr. Pritchard and agree with the findings and care plan. Subjective Seen and examined at the bedside this AM. Sitting up in bed independently, eating breakfast. Endorses stable GORMAN. Leg pain improving. Tolerating PO. Review of Systems All systems reviewed & are unremarkable except as noted in HPI & below Physical Exam Vital Signs (Past 24 Hours): Last Vital Signs Temp 36.7 C 12/21/18 07:11 Pulse 74 12/21/18 07:11 Resp 20 12/21/18 07:11 BP 154/76 H 12/21/18 07:11 Pulse Ox 96 12/21/18 07:11 Physical Exam: Vitals noted and reviewed, as above GENERAL: no acute distress HEAD: normocephalic atraumatic ENT: sclerae normal, trachea midline RESP: normal work of breathing CV: regular rate and rhythm ABDOMEN: nondistended LOWER EXTREMITIES: Inspection of calves reveal equal size bilaterally. + LLE with cellulitis improving, erythema now less. Still no drainage or weeping. SKIN: improving LLE cellulitis PSYCH: flat mood and affect Results & Data Laboratory Results 12/21/18 12/21/18 12/21/18 Range/Units 11:37 07:38 05:32 Sodium 128 L (136-145) mmol/L Potassium 3.7 (3.5-5.1) mmol/L Chloride 92 L (98-107) mmol/L Carbon Dioxide 31 (21-32) mmol/L Anion Gap 5.0 (3-11) BUN 11 (7-18) mg/dl Creatinine 0.73 (0.6-1.2) mg/dl Est Cr Clr Drug Dosing 80.3 ml/min Est GFR ( Amer) 91.4 Est GFR (Non-Af Amer) 78.9 BUN/Creatinine Ratio 14.8 (10-20) Glucose 122 H (70-99) mg/dl POC Glucose 180 H 146 H (70-99) Calcium 8.6 (8.5-10.1) mg/dl 12/20/18 12/20/18 Range/Units 20:11 16:24 Sodium (136-145) mmol/L Potassium (3.5-5.1) mmol/L Chloride (98-107) mmol/L Carbon Dioxide (21-32) mmol/L Anion Gap (3-11) BUN (7-18) mg/dl Creatinine (0.6-1.2) mg/dl Est Cr Clr Drug Dosing ml/min Est GFR ( Amer) Est GFR (Non-Af Amer) BUN/Creatinine Ratio (10-20) Glucose (70-99) mg/dl POC Glucose 166 H 136 H (70-99) Calcium (8.5-10.1) mg/dl Medications Administered Current Inpatient Medications Acetaminophen (Tylenol) 1,000 mg PO Q8 PRN PRN Reason: Pain Stop: 01/15/19 04:49 Last Admin: 12/20/18 17:06 Dose: 1,000 mg Documented by: Acetaminophen (Tylenol) 650 mg PO Q4H PRN PRN Reason: pain/fever Stop: 01/15/19 04:49 Albuterol (Ventolin Hfa) 2 puffs INH QID PRN PRN Reason: Shortness Of Breath Or Wheezin Last Admin: 12/20/18 08:38 Dose: 2 puffs Documented by: Albuterol (Ventolin Hfa) 1 puffs INH QIDR [facility] Stop: 01/15/19 15:59 Last Admin: 12/21/18 11:45 Dose: 1 puffs Documented by: Amitriptyline HCl (Elavil) 100 mg PO [facility] Stop: 01/15/19 20:59 Last Admin: 12/20/18 21:42 Dose: 100 mg Documented by: Aspirin (Ecotrin Ectab) 81 mg PO [facility] Stop: 01/15/19 08:59 Last Admin: 12/21/18 07:56 Dose: 81 mg Documented by: [facility] ([facility]) [facility]: 01/15/19 08:59 Last Admin: 12/21/18 08:00 Dose: 50 mg Documented by: Calamine/Phenol (Calmoseptine) 1 appln EXT TID PRN PRN Reason: skin breakdown prevention Stop: 01/15/19 04:49 Clopidogrel Bisulfate (Plavix) 75 mg PO [facility] Stop: 01/15/19 08:59 Last Admin: 12/21/18 07:56 Dose: 75 mg Documented by: Dextrose (Dextrose 50%) 25 - 50 ml IV UD PRN; Protocol PRN Reason: Hypoglycemia Protocol Stop: 01/15/19 14:38 Donepezil HCl (Aricept) 5 mg PO [facility] Stop: 01/15/19 20:59 Last Admin: 12/20/18 20:53 Dose: 5 mg Documented by: Duloxetine HCl (Cymbalta) 60 mg PO BID@0730,1130 [facility] Stop: 01/15/19 07:29 Last Admin: 12/21/18 11:45 Dose: 60 mg Documented by: Estrogens Conjugated (Premarin Vag) 1 appln PV MoWeFr@0900 [facility] Stop: 01/17/19 08:59 Last Admin: 12/20/18 09:40 Dose: 1 appln Documented by: Fluticasone Propionate (Flonase) 1 sprays NA BID [facility] Stop: 01/15/19 08:59 Last Admin: 12/21/18 08:01 Dose: 1 sprays Documented by: Gabapentin (Neurontin) 300 mg PO TIDM [facility] Stop: 01/15/19 07:59 Last Admin: 12/21/18 11:45 Dose: 300 mg Documented by: Glucagon (Glucagen) 1 mg SQ UD PRN; Protocol PRN Reason: Hypoglycemia Protocol Stop: 01/15/19 14:38 Glucosamine Sulfate (Glucosamine Sulfate) 1,500 mg PO QAM [facility] Stop: 01/15/19 08:59 Last Admin: 12/21/18 07:59 Dose: 1,500 mg Documented by: Glucose (Glucose 40%) 15 - 30 gm PO UD PRN; Protocol PRN Reason: Hypoglycemia Protocol Stop: 01/15/19 14:38 Glucose (Dex4 Glucose) 4 - 8 tabs PO UD PRN; Protocol PRN Reason: Hypoglycemia Protocol Stop: 01/15/19 14:38 Heparin Sodium (Beef Lung) (Heparin Sod 10 Unit/Ml Flush) 5 ml FLUSH PRN PRN PRN Reason: PICC LINE Stop: 01/17/19 04:37 Last Admin: 12/20/18 16:10 Dose: 5 ml Documented by: Heparin Sodium (Porcine) (Heparin Sodium (Porcine)) 5,000 units SQ Q12 [facility] Stop: 01/15/19 08:59 Last Admin: 12/21/18 08:02 Dose: 5,000 units Documented by: Insulin Aspart (Novolog Flexpen) 0 units SC ACHS [facility] Stop: 01/15/19 16:29 Last Admin: 12/21/18 12:47 Dose: 2 units Documented by: Ipratropium [place] (Atrovent Hfa) 2 puffs INH QID [facility] Stop: 01/15/19 08:59 Last Admin: 12/21/18 12:46 Dose: 2 puffs Documented by: Levothyroxine Sodium (Synthroid) 250 mcg PO DAILYBB [facility] Stop: 01/15/19 06:29 Last Admin: 12/21/18 05:38 Dose: 250 mcg Documented by: Lorazepam (Ativan) 1 mg PO [facility] Stop: 01/15/19 20:59 Last Admin: 12/20/18 21:12 Dose: 1 mg Documented by: Magnesium Hydroxide (Milk Of Magnesia) 20 ml PO DAILY PRN PRN Reason: Constipation Stop: 01/15/19 04:49 Metolazone (Zaroxolyn) 2.5 mg PO MoTh@0900 [facility] Stop: 01/17/19 08:59 Last Admin: 12/21/18 08:03 Dose: 2.5 mg Documented by: Mirabegron (Myrbetriq Er) 50 mg PO QAM [facility] Stop: 01/15/19 08:59 Last Admin: 12/21/18 08:00 Dose: 50 mg Documented by: Miscellaneous (Order Awaiting Action) 1 ea N/A QS [facility] Stop: 01/15/19 07:59 Last Admin: 12/21/18 08:01 Dose: Not Given Documented by: Miscellaneous (Order Awaiting Action) 1 ea N/A QS [facility] Stop: 01/15/19 07:59 Last Admin: 12/21/18 08:01 Dose: Not Given Documented by: Miscellaneous (Carbohydrates For Hypoglycemia) 15 - 30 gm PO UD PRN PRN Reason: Hypoglycemia Treatment Stop: 01/15/19 14:38 Montelukast Sodium (Singulair) 10 mg PO [facility] Stop: 01/15/19 20:59 Last Admin: 12/20/18 21:18 Dose: 10 mg Documented by: Multivitamins (Multivitamin Tab) 1 tab PO QAM [facility] Stop: 01/15/19 08:59 Last Admin: 12/21/18 07:56 Dose: 1 tab Documented by: Multivitamins/Minerals (Caltrate Plus) 1 tab PO BIDM [facility] Stop: 01/15/19 07:59 Last Admin: 12/21/18 08:00 Dose: 1 tab Documented by: Pantoprazole Sodium (Protonix) 40 mg PO BIDM [facility] Stop: 01/15/19 07:59 Last Admin: 12/21/18 07:56 Dose: 40 mg Documented by: Polyethylene Glycol (Miralax Powder Packet) 17 gm PO DAILY PRN PRN Reason: Constipation Stop: 01/15/19 04:49 Ranitidine HCl (Zantac) 150 mg PO BIDM [facility] Stop: 01/15/19 16:59 Last Admin: 12/21/18 07:56 Dose: 150 mg Documented by: Sertraline HCl (Zoloft) 25 mg PO QAM [facility] Stop: 01/15/19 08:59 Last Admin: 12/21/18 07:59 Dose: 25 mg Documented by: Spironolactone (Aldactone) 25 mg PO QAM [facility] Stop: 01/15/19 08:59 Last Admin: 12/21/18 07:59 Dose: 25 mg Documented by: Tamsulosin HCl (Flomax) 0.4 mg PO QAM [facility] Stop: 01/15/19 08:59 Last Admin: 12/21/18 07:59 Dose: 0.4 mg Documented by: Tramadol HCl (Ultram) 50 mg PO Q6H PRN PRN Reason: Pain Stop: 01/15/19 04:49 Last Admin: 12/20/18 16:01 Dose: 50 mg Documented by: Trazodone HCl (Desyrel) 200 mg PO HS [facility] Stop: 01/15/19 20:59 Last Admin: 12/20/18 20:53 Dose: 200 mg Documented by: Trimethoprim/Sulfamethoxazole (Septra Ds 800/160mg Tab) 1 tab PO Q12 [facility]; Protocol Stop: 12/30/18 20:59 Last Admin: 12/21/18 08:01 Dose: 1 tab Documented by: Vitamin B Complex (Vitamin B Complex) 1 tab PO QAM [facility] Stop: 01/15/19 08:59 Last Admin: 12/21/18 08:00 Dose: 1 tab Documented by: Resident Activity Tracking Resident Involvement: Resident Care Provided Care Provided: Adult Hospital Medicine
[2018-12-21] MEDS: TRAZODONE HCL 100 MG TAB PO SCH (21:07)
[2018-12-21] MEDS: AMITRIPTYLINE HCL 100 MG TAB PO SCH (21:07)
[2018-12-21] MEDS: DONEPEZIL HCL 5 MG TAB PO SCH (21:07)
[2018-12-21] MEDS: LORazepam 1 MG TAB PO SCH (21:07)
[2018-12-21] MEDS: MONTELUKAST SODIUM 10 MG TABLET PO SCH (21:13)
[2018-12-22] MEDS: LEVOTHYROXINE SODIUM 125 MCG TABLET PO SCH (06:14)
[2018-12-22 06:38] LABS: BUN Creatinine Ratio 15.3 (10-20); Calcium 8.9 mg/dl (8.5-10.1); Creatinine Clr Calc Pharmacy 69.8 ml/min; Est GFR (African American) 77.2; Est GFR (Non-African American) 66.6; Potassium 3.9 mmol/L (3.5-5.1)
[2018-12-22] MEDS: HEPARIN SOD 5,000 UNIT/0.5 ML VIAL SQ SCH ×2 (09:56→21:14)
[2018-12-22] MEDS: INSULIN ASPART 100 UNITS/ML 3 ML PEN SC SCH ×4 (09:56→21:15)
[2018-12-22] MEDS: GABAPENTIN 300 MG CAP PO SCH ×3 (09:57→18:22)
[2018-12-22] MEDS: PANTOprazole 40 MG TAB PO SCH ×2 (09:57→18:23)
[2018-12-22] MEDS: MULTIVITAMIN TAB PO SCH (09:57)
[2018-12-22] MEDS: CLOPIDOGREL BISULFATE 75 MG TAB PO SCH (09:58)
[2018-12-22] MEDS: ATENOLOL 50 MG TABLET PO SCH (09:58)
[2018-12-22] MEDS: MIRABEGRON ER 25 MG TAB PO SCH (09:58)
[2018-12-22] MEDS: SPIRONOLACTONE 25 MG TAB PO SCH (09:58)
[2018-12-22] MEDS: ASPIRIN 81 MG ECTAB PO SCH (09:58)
[2018-12-22] MEDS: SULFAMETHOXAZOLE/TRIMETHOPRIM DS 800/160MG TAB PO SCH ×2 (09:58→21:11)
[2018-12-22] MEDS: GLUCOSAMINE SULFATE 500 MG CAP PO SCH (09:58)
[2018-12-22] MEDS: SERTRALINE HCL 50 MG TABLET PO SCH (09:59)
[2018-12-22] MEDS: PREMARIN VAG CRM 14 APPLN/30 GM TUBE PV SCH (09:59)
[2018-12-22] MEDS: CALCIUM 600MG + VIT D 400 IU TAB PO SCH ×2 (09:59→18:22)
[2018-12-22] MEDS: DULOXETINE HCL 60 MG CAP PO SCH ×2 (09:59→13:28)
[2018-12-22] MEDS: TAMSULOSIN HCL 0.4 MG CAP PO SCH (09:59)
[2018-12-22] MEDS: RESTASIS~ORDER AWAITING ACTION SCH ×2 (10:00→13:55)
[2018-12-22] MEDS: FLUTICASONE PROPIONATE NA SPR 16 GM BTL SCH ×2 (10:01→21:13)
[2018-12-22] MEDS: ALBUTEROL HFA 8 GM INHALER INH SCH ×4 (10:01→20:22)
[2018-12-22] MEDS: IPRATROPIUM BROMIDE HFA INHALER INH SCH ×4 (10:01→21:10)
[2018-12-22] MEDS: DICLOFENAC SOD 1% GEL 100 GM TUBE EXT SCH ×2 (10:02→21:13)
[2018-12-22] MEDS: VITAMIN B COMPLEX TAB PO SCH (10:02)
[2018-12-22] MEDS: TRAMADOL HCL 50 MG TABLET PO PRN ×2 (10:06→18:33)
--- NOTE | 2018-12-22 16:50 | Family Medicine Progress Note ---
Date of Service December 22, 2018 Assessment & Plan (1) Cellulitis of left le-year-old female was admitted on 16 December 2018 for confusion and worsening left lower extremity erythema / pain. Please see recent discharge summary on 14Dec2018 as well regarding her previous treatment for lower extremity cellulitis with lymphangitis. #Left lower extremity cellulitis with acute ascending lymphangitis: -No DVT on 06Apr LLE Doppler u/s -No osteo or frx on 06Apr XR tib-fib -02Apr BCx no growth final. Repeat 06Apr BCx with NGTD. -06Apr started on vancomycin and Zosyn. Plan to clinically follow and then eventually transition to Bactrim. -07Apr zosyn DCd. 10Apr Vanc SD'ed. -10Apr transitioned to PO bactrim to complete total 10 day course (last day 30 december) -Continual clinical improvement -Appreciate wound c/s for compression. Continue wrapping the legs. Reiterated outpatient compliance #Confusion: -likely aggravated by metabolic encephalopathy in the setting of lower extremity cellulitis. -Not clinically evident x72h. -resolved. -follow. #Chronic diastolic CHF: -Stable, no acute issues. -Initially held her diuretics due to suspected mild dehydration. Gently rehydrated with IV fluids on admission. Restarted her metolazone. -Currently euvolemic Code status: Full code. Diet: Heart healthy, DM2. DVT prophy: Heparin q12h. On plavix. Dispo: MedSurg. PT/OT. Rehab potential -- Patient is a resident of [facility]. Await SNF. PICC in place - will DC on discharge. -11Apr -- I did speak at length with pt's son Elver at [phone] and updated thoroughly on progress. Answered all questions. Ongoing medical problems: #Chronic pain/headaches: on home tramadol 50mg q6h regimen, amitryptiline. -ADD voltaren gel for shoulder pain, to be continued on discharge. #Anemia: Admit Hb 10.1, around her baseline. Monitoring. #Hypertension, coronary artery disease: Continue aspirin, atenolol, Plavix, metolazone, spironolactone. #Hypothyroidism: Continue levothyroxine. Last TSH 18Feb 0.89. #Hyponatremia: No acute issues. Chronically in the upper 120s. Admit 129. Monitoring. #DM type II, diabetic peripheral neuropathy: HbA1c was 6.1 in March 2018. On calderon e Neurontin. Sliding scale coverage here. Cont home Gabapentin 300mg TID. #Dementia, prior TIA, depression: On prior discharge, was on amitriptyline, donepezil, cymbalta 60mg BID, lorazepam 1mg PO hs, sertraline, and trazodone. Continued here. Followed by psychiatry Dr. Mckenzie. #COPD, YARI: Continue Pro Air, Atrovent, Mucinex, Flonase, and singulair. Continue home CPAP. #GERD: On home ranitidine and Protonix. #Morbid obesity: BMI > 50. #Chronic interstitial cystitis, vaginal prolapse: On Myrbetriq, Flomax and topical conjugated estrogens. #PE in 2009. (2) Confusion: (3) Diastolic CHF, chronic: (4) Hypomagnesemia: (5) Anemia, iron deficiency: (6) Hypertension: (7) CAD (coronary artery disease): (8) Hypothyroidism (acquired): (9) Hyponatremia: (10) Diabetic peripheral neuropathy associated with type 2 diabetes mellitus: (11) COPD (chronic obstructive pulmonary disease): (12) YARI (obstructive sleep apnea): (13) GERD (gastroesophageal reflux disease): (14) Morbid obesity with BMI of 50.0-59.9, adult: (15) Chronic interstitial cystitis: Supervising Physician Co-Signing Physician Notes Resident Physician Supervision Note: I independently interviewed and examined the patient and verified the posada history and physical, reviewed labs and image studies, discussed the case with the resident Dr. Pritchard and agree with the findings and care plan. Subjective Seen and examined at the bedside this AM. Sitting up in bed independently, eating breakfast. Endorses stable GORMAN. Leg pain improving. Tolerating PO. Agrees to participate in PT today. Review of Systems All systems reviewed & are unremarkable except as noted in HPI & below Physical Exam Vital Signs (Past 24 Hours): Last Vital Signs Temp 36.7 C 12/22/18 15:51 Pulse 77 12/22/18 15:51 Resp 21 12/22/18 15:51 BP 120/61 12/22/18 15:51 Pulse Ox 95 12/22/18 15:51 Physical Exam: Vitals noted and reviewed, as above GENERAL: no acute distress HEAD: normocephalic atraumatic ENT: sclerae normal, trachea midline RESP: normal work of breathing CV: regular rate and rhythm ABDOMEN: nondistended LOWER EXTREMITIES: Inspection of calves reveal equal size bilaterally. + LLE with cellulitis improving, erythema now less. Still no drainage or weeping. SKIN: improving LLE cellulitis PSYCH: flat mood and affect Results & Data Laboratory Results 12/22/18 12/22/18 12/22/18 Range/Units 16:18 11:40 07:42 Sodium (136-145) mmol/L Potassium (3.5-5.1) mmol/L Chloride (98-107) mmol/L Carbon Dioxide (21-32) mmol/L Anion Gap (3-11) BUN (7-18) mg/dl Creatinine (0.6-1.2) mg/dl Est Cr Clr Drug Dosing ml/min Est GFR ( Amer) Est GFR (Non-Af Amer) BUN/Creatinine Ratio (10-20) Glucose (70-99) mg/dl POC Glucose 133 H 129 H 128 H (70-99) Calcium (8.5-10.1) mg/dl 12/22/18 12/21/18 Range/Units 05:35 20:00 Sodium 128 L (136-145) mmol/L Potassium 3.9 (3.5-5.1) mmol/L Chloride 91 L (98-107) mmol/L Carbon Dioxide 30 (21-32) mmol/L Anion Gap 7.0 (3-11) BUN 13 (7-18) mg/dl Creatinine 0.84 (0.6-1.2) mg/dl Est Cr Clr Drug Dosing 69.8 ml/min Est GFR ( Amer) 77.2 Est GFR (Non-Af Amer) 66.6 BUN/Creatinine Ratio 15.3 (10-20) Glucose 113 H (70-99) mg/dl POC Glucose 182 H (70-99) Calcium 8.9 (8.5-10.1) mg/dl Medications Administered Current Inpatient Medications Acetaminophen (Tylenol) 1,000 mg PO Q8 PRN PRN Reason: Pain Stop: 01/15/19 04:49 Last Admin: 12/20/18 17:06 Dose: 1,000 mg Documented by: Acetaminophen (Tylenol) 650 mg PO Q4H PRN PRN Reason: pain/fever Stop: 01/15/19 04:49 Albuterol (Ventolin Hfa) 2 puffs INH QID PRN PRN Reason: Shortness Of Breath Or Wheezin Last Admin: 12/20/18 08:38 Dose: 2 puffs Documented by: Albuterol (Ventolin Hfa) 1 puffs INH QIDR [facility] Stop: 01/15/19 15:59 Last Admin: 12/22/18 13:29 Dose: 1 puffs Documented by: Amitriptyline HCl (Elavil) 100 mg PO [facility] Stop: 01/15/19 20:59 Last Admin: 12/21/18 21:07 Dose: 100 mg Documented by: Aspirin (Ecotrin Ectab) 81 mg PO QAM [facility] Stop: 01/15/19 08:59 Last Admin: 12/22/18 09:58 Dose: 81 mg Documented by: [facility]ormin) [facility] Stop: 01/15/19 08:59 Last Admin: 12/22/18 09:58 Dose: 50 mg Documented by: Calamine/Phenol (Calmoseptine) 1 appln EXT TID PRN PRN Reason: skin breakdown prevention Stop: 01/15/19 04:49 Clopidogrel Bisulfate (Plavix) 75 [facility] Stop: 01/15/19 08:59 Last Admin: 12/22/18 09:58 Dose: 75 mg Documented by: Dextrose (Dextrose 50%) 25 - 50 ml IV UD PRN; Protocol PRN Reason: Hypoglycemia Protocol Stop: 01/15/19 14:38 Diclofenac Sodium (Voltaren 1% Top) 1 appln EXT BID [facility] Stop: 01/21/19 08:59 Last Admin: 12/22/18 10:02 Dose: 1 appln Documented by: Donepezil HCl (Aricept) 5 mg PO [facility] Stop: 01/15/19 20:59 Last Admin: 12/21/18 21:07 Dose: 5 mg Documented by: Duloxetine HCl (Cymbalta) 60 mg PO BID@0730,1130 [facility] Stop: 01/15/19 07:29 Last Admin: 12/22/18 13:28 Dose: 60 mg Documented by: Estrogens Conjugated (Premarin Vag) 1 appln PV MoWeFr@0900 [facility] Stop: 01/17/19 08:59 Last Admin: 12/22/18 09:59 Dose: 1 appln Documented by: Fluticasone Propionate (Flonase) 1 sprays NA BID [facility] Stop: 01/15/19 08:59 Last Admin: 12/22/18 10:01 Dose: 1 sprays Documented by: Gabapentin (Neurontin) 300 mg PO TIDM [facility] Stop: 01/15/19 07:59 Last Admin: 12/22/18 14:12 Dose: 300 mg Documented by: Glucagon (Glucagen) 1 mg SQ UD PRN; Protocol PRN Reason: Hypoglycemia Protocol Stop: 01/15/19 14:38 Glucosamine Sulfate (Glucosamine Sulfate) 1,500 mg PO QAM [facility] Stop: 01/15/19 08:59 Last Admin: 12/22/18 09:58 Dose: 1,500 mg Documented by: Glucose (Glucose 40%) 15 - 30 gm PO UD PRN; Protocol PRN Reason: Hypoglycemia Protocol Stop: 01/15/19 14:38 Glucose (Dex4 Glucose) 4 - 8 tabs PO UD PRN; Protocol PRN Reason: Hypoglycemia Protocol Stop: 01/15/19 14:38 Heparin Sodium (Beef Lung) (Heparin Sod 10 Unit/Ml Flush) 5 ml FLUSH PRN PRN PRN Reason: PICC LINE Stop: 01/17/19 04:37 Last Admin: 12/20/18 16:10 Dose: 5 ml Documented by: Heparin Sodium (Porcine) (Heparin Sodium (Porcine)) 5,000 units SQ Q12 [facility] Stop: 01/15/19 08:59 Last Admin: 12/22/18 09:56 Dose: 5,000 units Documented by: Insulin Aspart (Novolog Flexpen) 0 units SC ACHS [facility] Stop: 01/15/19 16:29 Last Admin: 12/22/18 13:35 Dose: 2 units Documented by: Ipratropium Rawlins (Atrovent Hfa) 2 puffs INH QID [facility] Stop: 01/15/19 08:59 Last Admin: 12/22/18 13:29 Dose: 2 puffs Documented by: Levothyroxine Sodium (Synthroid) 250 mcg PO DAILYBB [facility] Stop: 01/15/19 06:29 Last Admin: 12/22/18 06:14 Dose: 250 mcg Documented by: Lorazepam (Ativan) 1 mg PO HS [facility] Stop: 01/15/19 20:59 Last Admin: 12/21/18 21:07 Dose: 1 mg Documented by: Magnesium Hydroxide (Milk Of Magnesia) 20 ml PO DAILY PRN PRN Reason: Constipation Stop: 01/15/19 04:49 Metolazone (Zaroxolyn) 2.5 mg PO MoTh@0900 [facility] Stop: 01/17/19 08:59 Last Admin: 12/21/18 08:03 Dose: 2.5 mg Documented by: Mirabegron (Myrbetriq Er) 50 mg PO QAM [facility] Stop: 01/15/19 08:59 Last Admin: 12/22/18 09:58 Dose: 50 mg Documented by: Miscellaneous (Order Awaiting Action) 1 ea N/A [facility] Stop: 01/15/19 07:59 Last Admin: 12/22/18 13:55 Dose: Not Given Documented by: Miscellaneous (Order Awaiting Action) 1 ea N/A [facility] Stop: 01/15/19 07:59 Last Admin: 12/22/18 13:55 Dose: Not Given Documented by: Miscellaneous (Carbohydrates For Hypoglycemia) 15 - 30 gm PO UD PRN PRN Reason: Hypoglycemia Treatment Stop: 01/15/19 14:38 Montelukast Sodium (Singulair) 10 mg PO [facility] Stop: 01/15/19 20:59 Last Admin: 12/21/18 21:13 Dose: 10 mg Documented by: Multivitamins (Multivitamin Tab) [facility] Stop: 01/15/19 08:59 Last Admin: 12/22/18 09:57 Dose: 1 tab Documented by: Multivitamins/Minerals (Caltrate Plus) 1 tab PO BIDM [facility] Stop: 01/15/19 07:59 Last Admin: 12/22/18 09:59 Dose: 1 tab Documented by: Pantoprazole Sodium (Protonix) 40 mg PO BIDM [facility] Stop: 01/15/19 07:59 Last Admin: 12/22/18 09:57 Dose: 40 mg Documented by: Polyethylene Glycol (Miralax Powder Packet) 17 gm PO DAILY PRN PRN Reason: Constipation Stop: 01/15/19 04:49 Ranitidine HCl (Zantac) 150 mg PO BIDM [facility] Stop: 01/15/19 16:59 Last Admin: 12/22/18 09:57 Dose: 150 mg Documented by: Sertraline HCl (Zoloft) [facility] Stop: 01/15/19 08:59 Last Admin: 12/22/18 09:59 Dose: 25 mg Documented by: Spironolactone (Aldactone) 25 mg PO QAM [facility] Stop: 01/15/19 08:59 Last Admin: 12/22/18 09:58 Dose: 25 mg Documented by: Tamsulosin HCl (Flomax) 0.4 mg [facility] Stop: 01/15/19 08:59 Last Admin: 12/22/18 09:59 Dose: 0.4 mg Documented by: Tramadol HCl (Ultram) 50 mg PO Q6H PRN PRN Reason: Pain Stop: 01/15/19 04:49 Last Admin: 12/22/18 10:06 Dose: 50 mg Documented by: Trazodone HCl (Desyrel) 200 mg PO [facility] Stop: 01/15/19 20:59 Last Admin: 12/21/18 21:07 Dose: 200 mg Documented by: Trimethoprim/Sulfamethoxazole (Septra Ds 800/160mg Tab) 1 tab PO Q12 [facility]; Protocol Stop: 12/30/18 20:59 Last Admin: 12/22/18 09:58 Dose: 1 tab Documented by: Vitamin B Complex (Vitamin B Complex) [facility] Stop: 01/15/19 08:59 Last Admin: 12/22/18 10:02 Dose: 1 tab Documented by: Resident Activity Tracking Resident Involvement: Resident Care Provided Care Provided: Adult Hospital Medicine
[2018-12-22] MEDS: LORazepam 1 MG TAB PO SCH (21:10)
[2018-12-22] MEDS: AMITRIPTYLINE HCL 100 MG TAB PO SCH (21:11)
[2018-12-22] MEDS: MONTELUKAST SODIUM 10 MG TABLET PO SCH (21:12)
[2018-12-22] MEDS: DONEPEZIL HCL 5 MG TAB PO SCH (21:12)
[2018-12-22] MEDS: TRAZODONE HCL 100 MG TAB PO SCH (21:14)
[2018-12-23] MEDS: RESTASIS~ORDER AWAITING ACTION SCH ×2 (01:34→09:14)
[2018-12-23] MEDS: LEVOTHYROXINE SODIUM 125 MCG TABLET PO SCH (06:20)
[2018-12-23 07:02] LABS: BUN Creatinine Ratio 18.3 (10-20); Calcium 8.9 mg/dl (8.5-10.1); Creatinine Clr Calc Pharmacy 54.5 ml/min; Est GFR (African American) 59.6; Est GFR (Non-African American) 51.4; Potassium 4.1 mmol/L (3.5-5.1)
[2018-12-23] MEDS: DULOXETINE HCL 60 MG CAP PO SCH ×2 (09:14→12:00)
[2018-12-23] MEDS: PANTOprazole 40 MG TAB PO SCH (09:14)
[2018-12-23] MEDS: ATENOLOL 50 MG TABLET PO SCH (09:14)
[2018-12-23] MEDS: HEPARIN SOD 5,000 UNIT/0.5 ML VIAL SQ SCH (09:14)
[2018-12-23] MEDS: MULTIVITAMIN TAB PO SCH (09:14)
[2018-12-23] MEDS: SPIRONOLACTONE 25 MG TAB PO SCH (09:15)
[2018-12-23] MEDS: GABAPENTIN 300 MG CAP PO SCH ×2 (09:15→12:00)
[2018-12-23] MEDS: GLUCOSAMINE SULFATE 500 MG CAP PO SCH (09:15)
[2018-12-23] MEDS: TAMSULOSIN HCL 0.4 MG CAP PO SCH (09:15)
[2018-12-23] MEDS: MIRABEGRON ER 25 MG TAB PO SCH (09:15)
[2018-12-23] MEDS: VITAMIN B COMPLEX TAB PO SCH (09:15)
[2018-12-23] MEDS: CLOPIDOGREL BISULFATE 75 MG TAB PO SCH (09:16)
[2018-12-23] MEDS: CALCIUM 600MG + VIT D 400 IU TAB PO SCH (09:16)
[2018-12-23] MEDS: SULFAMETHOXAZOLE/TRIMETHOPRIM DS 800/160MG TAB PO SCH (09:16)
[2018-12-23] MEDS: SERTRALINE HCL 50 MG TABLET PO SCH (09:16)
[2018-12-23] MEDS: FLUTICASONE PROPIONATE NA SPR 16 GM BTL SCH (09:17)
[2018-12-23] MEDS: ALBUTEROL HFA 8 GM INHALER INH SCH ×2 (09:17→12:00)
[2018-12-23] MEDS: INSULIN ASPART 100 UNITS/ML 3 ML PEN SC SCH ×2 (09:17→12:01)
[2018-12-23] MEDS: IPRATROPIUM BROMIDE HFA INHALER INH SCH ×2 (09:17→12:01)
[2018-12-23] MEDS: DICLOFENAC SOD 1% GEL 100 GM TUBE EXT SCH (09:20)
[2018-12-23] MEDS: ASPIRIN 81 MG ECTAB PO SCH (09:20)
[2018-12-23] MEDS: TRAMADOL HCL 50 MG TABLET PO PRN (09:27)
--- NOTE | 2018-12-23 10:41 | Discharge Summary ---
Date of Service December 23, 2018 Admission HPI Per Admitting Provider The patient is a 78-year-old female resident of local nursing facility, who was admitted to [facility] from 12/12-12/14 for lower extremity cellulitis with lymphangitis. She was discharged on Keflex and doxycycline orally, but has worsened significantly during that time, and presents back to the emergency department for assessment. Principal Diagnosis Cellulitis LLE Discharge Exam Vitals noted and reviewed, as above GENERAL: no acute distress HEAD: normocephalic atraumatic ENT: sclerae normal, trachea midline RESP: normal work of breathing CV: regular rate and rhythm ABDOMEN: nondistended LOWER EXTREMITIES: Inspection of calves reveal equal size bilaterally. + LLE with cellulitis improving, erythema now less. Still no drainage or weeping. SKIN: improving LLE cellulitis PSYCH: flat mood and affect Discharge Data Allergies Allergy/AdvReac Type Severity Reaction Status Date / Time KODAK Inhibitors Allergy Unknown Unknown Verified 12/16/18 02:05 benson Allergy Unknown Verified 12/16/18 02:05 grass pollen Allergy Unknown Verified 12/16/18 02:05 perfume Allergy Unknown Verified 12/16/18 02:05 Consultations 12/16/18 02:14 ED Decision to Admit Stat 12/16/18 04:50 Consult Case Management - Discharge Planning Routine Ordered Studies 12/16/18 01:05 US venous doppler LE Urgent Hospital Course (1) Cellulitis of left le-year-old female was admitted on 16 December 2018 for confusion and worsening left lower extremity erythema / pain. #Left lower extremity cellulitis with acute ascending lymphangitis: -During previous hospitalization (Discharged 12/14/18), received single dose of vancomycin, Zosyn ongoing, then transitioned to Keflex as outpatient. Failed PO keflex, worsening erythema. -This admission: Afebrile, no leukocytosis, as well as negative procalcitonin and lactate. -No DVT on 06Apr LLE Doppler u/s -No osteo or frx on 06Apr XR tib-fib -02Apr BCx no growth final. Repeat 06Apr BCx with NGTD. -Treated initally with IV abx - vanco/zosyn - later switched to Bactrim. -Significant improvement after use of compression wraps. She has them at home but not compliant due to ?pain. -to complete total 10 day course (last day 30 december) -Reiterated outpatient compliance with wraps. #Poor venous access: -Due to issues with obtaining lasting PIV access, discussed with patient and obtained written consent for PICC placement . -PICC DISCONTINUED on discharge. #Confusion: -likely aggravated by metabolic encephalopathy in the setting of lower extremity cellulitis. -resolved. #Chronic diastolic CHF: -Stable, no acute issues. -Initially held her diuretics due to suspected mild dehydration. Gently rehydrated with IV fluids on admission. Restarted her metolazone. -Currently euvolemic Ongoing medical problems: #Chronic pain/headaches: continued home tramadol 50mg q6h regimen, amitryptiline. -Added voltaren gel for shoulder pain, to be continued on discharge. #Anemia: Admit Hb 10.1, around her baseline. #Hypertension, coronary artery disease: Continued aspirin, atenolol, Plavix, metolazone, spironolactone. #Hypothyroidism: Continued levothyroxine. Last TSH 18Feb 0.89. #Hyponatremia: No acute issues. Chronically in the upper 120s. #DM type II, diabetic peripheral neuropathy: HbA1c was 6.1 in March 2018. On home Neurontin. Sliding scale coverage here. Continued home Gabapentin 300mg TID. #Dementia, prior TIA, depression: On prior discharge, was on amitriptyline, donepezil, cymbalta 60mg BID, lorazepam 1mg PO hs, sertraline, and trazodone. Continued here. Followed by psychiatry Dr. Mckenzie. #COPD, YARI: Continued Pro Air, Atrovent, Mucinex, Flonase, and singulair. Continue home CPAP. #GERD: On home ranitidine and Protonix. #Morbid obesity: BMI > 50. #Chronic interstitial cystitis, vaginal prolapse: On Myrbetriq, Flomax and topical conjugated estrogens. #PE in 2009. (2) Acute hyponatremia: (3) Failure of outpatient treatment: (4) COPD (chronic obstructive pulmonary disease): (5) Anxiety with depression: (6) Hypertension: (7) Hypothyroidism (acquired): (8) Dementia: Total Time Total Time Spent Total Time Spent (In Minutes): <30 min Discharge Plan Discharge Items Patient Disposition: Transfer [facility] Reason For Visit: CELLULITIS OF LOWER EXTREMITY Discharge Diagnosis: CELLULITIS OF LOWER EXTREMITY Discharge Goals: Decrease discomfort, Improve disease control, Improve function and Increase independence Activity: Per 'Additional Instructions' section Non-emergency contact: Primary Care Provider Call non-emergency contact if: you have any medication questions and your pain is not controlled Follow-up/Referrals: Jame Ruth MD [Primary Care Provider] - Diet: Carb Consistent or DM2 and Heart Healthy Other Ambulatory Orders: Basic Metabolic Panel (Routine) Timeframe: 20181225 Location: Determined by Patient Ordered By: Radha Mack Provider Instructions: To follow up with primary care provider on discharge from SNF Prescriptions: New sulfamethoxazole-trimethoprim 800-160 mg Tablet 1 tab PO Q12 8 Days Qty: 16 RF: 0 diclofenac sodium [Voltaren] 1 % Gel 1 applic EXT BID Qty: 1 RF: 0 tramadol 50 mg Tablet 50 mg PO Q6H PRN (Reason: Pain) Qty: 15 RF: 0 Continued donepezil 5 mg Tablet 5 mg PO HS RF: 0 amitriptyline 100 mg Tablet 100 mg PO HS RF: 0 sertraline 25 mg Tablet 25 mg PO QAM RF: 0 duloxetine 60 mg Capsule,Delayed Release(Dr/Ec) 60 mg PO BID RF: 0 dextromethorphan polistirex [Delsym 12 hour] 30 mg/5 mL Suspension,Extended Rel 12 Hr 10 ml PO Q12H PRN (Reason: Cough) RF: 0 nystatin 100,000 unit/gram Powder 1 applic TOPICAL BID RF: 0 magnesium hydroxide [Milk of Magnesia] 400 mg/5 mL Suspension 2 - 4 tbsp PO DAILY PRN (Reason: Constipation) RF: 0 polyethylene glycol 3350 [Miralax] 17 gram Powder In Packet 17 g PO DAILY PRN (Reason: Constipation) RF: 0 acetaminophen [Tylenol Extra Strength] 500 mg Tablet 1,000 mg PO Q8 PRN (Reason: Pain) RF: 0 Restasis 0.05 % Dropperette 1 drp OPHTHALMIC (EYE) BID RF: [address] pantoprazole [address] For Susp In Packet 40 mg PO BIDM RF: 0 guaifenesin [Mucinex] 600 mg Tablet Extended Release 12hr 600 mg PO Q12H PRN (Reason: Congestion) RF: 0 spironolactone 25 mg Tablet 25 mg PO QAM RF: 0 atenolol 50 mg Tablet 50 mg PO QAM RF: 0 loperamide 2 mg Capsule 1 mg PO DIRECTED MDD 3 per day PRN (Reason: Diarrhea) RF: 0 methenamine hippurate 1 gram Tablet 1 g PO QPM RF: 0 tamsulosin [Flomax] 0.4 mg Capsule 0.4 mg PO QAM RF: 0 potassium chloride 20 mEq Tablet,Er Particles/Crystals 60 meq PO BIDM RF: 0 Myrbetriq 50 mg Tablet Extended Release 24 Hr 50 mg PO QAM RF: 0 levothyroxine 125 mcg Tablet 250 mcg PO QAM RF: 0 metolazone 2.5 mg Tablet 2.5 mg PO 2XWK RF: 0 vitamin B complex Tablet 1 tab PO QAM RF: 0 ranitidine HCl 150 mg Tablet 150 mg PO BIDM RF: 0 trazodone 100 mg Tablet 200 mg PO HS RF: 0 clopidogrel [Plavix] 75 mg Tablet 75 mg PO QAM RF: 0 mometasone [Nasonex] 50 mcg/actuation [place],Non-Aerosol 1 spray INTRANASAL BID RF: 0 montelukast [Singulair] 10 mg Tablet 10 mg PO HS RF: 0 multivitamin Tablet 1 tab PO QAM RF: 0 metolazone 2.5 mg tablet 2.5 mg PO DAILY PRN (Reason: Weight Gain) RF: 0 ketoconazole [Nizoral] 2 % Shampoo 1 applic topical DAILY RF: 0 glucosamine sulfate [Glucosamine] 500 mg Tablet 1,500 mg PO QAM RF: 0 aspirin 81 mg Tablet,Delayed Release (Dr/Ec) 81 mg PO QAM RF: 0 ferrous sulfate [iron] 325 mg (65 mg iron) Tablet 325 mg PO 3XWK RF: 0 conjugated estrogens 0.625 mg/gram cream 1 applic topical 3XWK RF: 0 gabapentin 300 mg capsule 300 mg PO TIDM RF: 0 albuterol sulfate [ProAir HFA] 90 mcg/actuation Hfa Aerosol Inhaler 2 puff INHALATION QID PRN (Reason: Shortness Of Breath Or Wheezing) RF: 0 Systane (PF) 0.4-0.3 % Dropperette 1 drp OPHTHALMIC (EYE) TID RF: 0 Caltrate 600 + D 600 mg (1,500 mg)-800 unit Tablet,Chewable 1 tab PO BIDM RF: 0 lorazepam 1 mg Tablet 1 mg PO HS RF: 0 Reguloid Powder 1 tbsp PO BID RF: 0 nystatin 100,000 unit/gram Cream 1 applic TOPICAL BID PRN (Reason: excoriation) RF: 0 magnesium sulfate (bulk) [Epsom Salt] 100 % Crystals 1 applic TOPICAL DAILY RF: 0 ketoconazole 2 % Cream 1 applic TOPICAL DAILY PRN (Reason: flares) RF: 0 Systane Gel 0.3 % Gel 1 drp OPB HS RF: 0 Calmoseptine 0.44-20.6 % Ointment 1 applic TOPICAL TID PRN (Reason: skin breakdown prevention) RF: 0 Atrovent HFA 17 mcg/actuation Hfa Aerosol Inhaler 2 puff INHALATION QID Qty: 0 RF: 0 Stand-Alone Forms: [facility] Discharge Orders: Discharge Order (Routine); Ordered 12/23/18 Ordered By: Quita Fallon Skilled Items Patient informed of condition?: Yes DNR: No Discharge Level of Care: Skilled Communicable Disease: No Discharge Prognosis: Improving Admission Data Admit Date/Time: 12/16/18 02:48 Attending Provider: Jennifer Puentes Admit Provider: Kt Bauman Primary Care Provider: Jame Ruth V. Other Providers: Kt Bauman Service: Medical Other Interventions: Discharge Summary Assessment (RN) Last Done: 12/23/18 11:54 Pending Studies at Discharge: No DC Date/Time DO NOT enter until pt leaves facility: 12/23/18 12:15 Supervising Physician Co-Signing Physician Notes Resident Physician Supervision Note: I independently interviewed and examined the patient and verified the posada history and physical, reviewed labs and image studies, discussed the case with the resident Dr. Fallon and agree with the findings and care plan. Time spent in discharge 35 min Resident Activity Tracking Resident Involvement: Resident Care Provided Care Provided: Adult Hospital Medicine
== END 2018-12-23 12:15 | DRG 602 ==
LOC: ED 00:53 → SUATTDRO 02:48 → 2W 02:48

== ENCOUNTER 2019-01-20 08:34 | Inpatient (IN) ==
[2019-01-20 09:03] LABS: Appearance Urine Clear (Clear); Bacteria Urine Automated Negative (Negative); Bilirubin Urine Negative (Negative); Blood Urine Negative (Negative); Color Urine Yellow; Epithelial Cell Urine Auto 20-30 /lpf (0-5); Glucose Urine UA Negative (Negative); Ketones Urine Negative (Negative); Leukocyte Esterase Urine 2+ (Negative); Nitrite Urine Negative (Negative); Protein Urine Negative (Negative); RBC Urine Automated 0-4 /hpf (0-4); Specific Gravity Urine 1.012 (1.000-1.030); Urobilinogen Urine Negative (Negative); WBC Urine Automated >30 /hpf (0-5)
--- NOTE | 2019-01-20 09:04 | Emergency Department Note ---
ED Provider Note CHIEF COMPLAINT: Confusion HISTORY OF PRESENTING ILLNESS: This is a 78-year-old female who presents to the emergency department via EMS with concern for confusion starting this morning. Patient presents from [facility]. Per report, the patient was acting confused, repeating questions, and unable to perform her normal ADLs today. She is normally quite functional at baseline, though she does have some mild dementia. She was diagnosed with a urinary tract infection 4 days ago by her PCP, she was started on Macrobid for this. Patient denies any pain at this time. She denies chest pain, shortness of breath, dizziness or syncope. She denies abdominal pain or back pain. There have not been any reported fevers and she is afebrile today. No report of any recent falls. She denies any headache, vision changes, or neck pain. She denies any unusual rash. REVIEW OF SYSTEMS: A complete 10 point review of systems was reviewed with the patient with pertinent positives and negatives as per history of present illne ss. All else were negative. PAST MEDICAL HISTORY: COPD, hypertension, hypothyroidism, GERD, YARI, diastolic CHF, CAD, diabetes, lymphangitis SOCIAL HISTORY: Lives in a personal fci, she is a former smoker ALLERGIES: Reviewed in chart PHYSICAL EXAM: CONSTITUTIONAL: Alert, Pleasant and cooperative. Nontoxic-appearing and in no acute distress. Well appearing and well nourished. HEENT: Normocephalic, atraumatic. PERRL, EOMI. Pharynx normal. Moist mucous membranes. NECK: Supple, full active range of motion without discomfort. No cervical adenopathy. RESPIRATORY: Diminished in bases with fine crackles, otherwise clear to auscultation bilaterally with no wheezing, rhonchi or stridor. Equal expansion bilaterally. CARDIOVASCULAR: Bradycardic, irregular rate and rhythm with no murmurs, rubs or gallops. Normal peripheral perfusion with 2+ distal pulses in all 4 extremities. No pitting edema. GASTROINTESTINAL: Soft, nontender, nondistended, obese abdomen. No palpable masses or HSM. Bowel sounds present in all quadrants. No CVA tenderness bilaterally. MUSCULOSKELETAL: Full range of motion of all joints without discomfort. INTEGUMENTARY: No rash or other significant dermatologic conditions noted. NEUROLOGIC: Alert and oriented X 3 with normal affect. Cranial nerves II-XII grossly intact, no facial droop. No pronator drift. 5/5 strength in all 4 extremities. Sensation intact to light touch in all 4 extremities. No focal neurologic deficits noted. Normal speech. ED COURSE AND MEDICAL DECISION MAKING: CC: Patient presenting with complaint of confusion DIFFERENTIAL DIAGNOSIS: Includes, but not limited to UTI, pneumonia, electrolyte abnormality, dehydration, renal failure, ACS, CVA, cardiac dysrhythmia, among others. INTERPRETATION OF LABS: Mild leukocytosis with left shift, mild anemia which appears to be consistent with baseline, normal platelets, hyponatremia which appears consistent with previous labs, no other significant electrolyte abnormality, normal renal function, normal liver enzymes. TSH within normal limits. Troponin negative. UA appears to be still consistent with UTI (cath specimen). Repeat urine culture pending. IMAGING: CT head/brain wo con CT DOSE: 537.48 mGy.cm HISTORY: Mental status change confusion TECHNIQUE: Multiaxial CT images of the head were performed without the use of intravenous contrast. A dose lowering technique was utilized adhering to the principles of ALARA. Comparison: 12/11/2017 Findings: The paranasal sinuses and mastoid air cells are clear. The calvarium and skull base are intact. The ventricles and sulci are within normal limits. There is no mass, hematoma, midline shift, or acute infarct. Impression: No acute intracranial abnormality. ----- XR chest 1V portable CLINICAL HISTORY: confusion mental status change COMPARISON STUDY: 12/11/2017 FINDINGS: Mild stable cardiomegaly. Slight increase in prominence of pulmonary vasculature. Diaphragms are smooth. IMPRESSION: Mild congestive heart failure. EKG: Shows atrial flutter with variable AV block, rate of 46 bpm, when compared to previous EKG from 12/11/2018, atrial flutter and bradycardia appear to be new by my interpretation. MEDICATION RECONCILIATION: I attest that I have personally reviewed the patient's current medication list. INITIAL VITAL SIGNS REVIEW: I reviewed the patient's initial vital signs and interpret them as follows: T: Afebrile; BP: Normotensive; HR: Bradycardic; RR: Within normal limits; Pulse Ox: Within normal limits on room air. Blood pressure screening: The patient was found to have normal blood pressure on screening and does not require follow-up for repeat blood pressure check. MDM SUMMARY: Patient was evaluated at bedside, history and physical exam performed. Patient is alert and oriented, in no acute distress, resting in the stretcher. Neurologic exam is intact with no focal deficits. Patient is noted to be bradycardic on monitor, and EKG shows atrial flutter with variable AV blockade. Review of previous EKG shows normal sinus rhythm, this appears to be a new finding. The patient denies any chest pain or shortness of breath, and denies any palpitations. Abdomen is soft and nontender throughout. She has not had a reported fever and is afebrile here. Orders were placed at bedside for labs, cath UA, 1 view chest x-ray, head CT to evaluate for altered mental status. Patient discussed with Dr. Walter, who agrees with my assessment, plan, and disposition. Labs and imaging reviewed as above, labs notable for leukocytosis and hyponatremia. UA still appears consistent with a UTI, I suspect failed outpatient treatment with the Macrobid. 1 g IV Rocephin ordered to cover for UTI. I spoke on the phone with the patient's son, Elver Rivero, and updated him regarding the patient's care at the patient's request. The patient's son does report that she has been evaluated by endocrine in the past for her low sodium, and also reports that she has a history of A. fib along time ago, but denies any known history of A. flutter. Given the patient's reported altered mental status by the fci staff as well as her son, and appears that she still has a UTI, I feel that she would benefit from admission for failed outpatient treatment of her UTI and the altered mental status. I spoke with Dr. Vences, [facility] Hospitalist, who agrees to evaluate the patient for admission. Patient reassessed multiple times throughout ED stay, she has remained hemodynamically stable and with no complaints. She is agreeable to admission. Patient was stable at time of admission. The chart was completed utilizing [employer] Speech voice recognition software. Grammatical errors, random word insertions, pronoun errors, and incomplete sentences are an occasional consequence of this system due to software limitations, ambient noise, and hardware issues. Any formal questions or conc erns about the content, text, or information contained within the body of this dictation should be directly addressed to the nurse practitioner for clarification. Impression & Plan UTI (urinary tract infection), bacterial, Atrial flutter, paroxysmal, Failure of outpatient treatment, Acute alteration in mental status Past Med/Surg History Medical History Chronic hyponatremia (Chronic) Diastolic CHF, acute on chronic (Acute) Atrial flutter, paroxysmal (Acute) Acute metabolic encephalopathy (Acute) Hypomagnesemia (Acute) Morbid obesity with BMI of 50.0-59.9, adult YARI (obstructive sleep apnea) Hyponatremia Diastolic CHF, chronic CAD (coronary artery disease) Chronic interstitial cystitis Sepsis (Acute) Confusion (Acute) UTI (urinary tract infection) (Acute) Diabetes (Chronic) TIA (transient ischemic attack) (Resolved) Pulmonary embolism (Resolved) UTI (urinary tract infection) (Resolved) Cardiac valve prolapse (Chronic) Balance disorder Basal pneumonia of both lungs (Acute) Diabetic peripheral neuropathy associated with type 2 diabetes mellitus Foot deformity Foot pain Loss of sensation Social History Preferred Language: Polish Communication Ability: Effective Admitting Interviewer Required: No Beliefs That Will Affect Care: None marital status: / Current Living Situation: Personal Care Facility Current Living Situation Comment: [facility] current occupational status: retired Other Information That Helps Us Care for You: No Feels Safe at Home: Yes Safety Concerns: Feels Safe At This Time Smoking Status: Former smoker Do You Dip or Chew Tobacco: No Second Hand Exposure: No Hx Alcohol Use: No Hx Substance Use: No Results & Data Vital Signs Vital Signs - 24 hr 01/20/19 08:32 01/20/19 08:54 01/20/19 09:12 Temperature 36.7 C Temperature Source Oral Sepsis Recent Fever Within 48 Hours No Sepsis Action Taken by Nursing No Action Required Pulse Rate 76 76 Pulse Rate [Apical] Pulse Rhythm Irregular Respiratory Rate 12 12 Respiratory Effort / Characteristics Non-Labored Respiratory Depth Normal Respiratory Pattern Blood Pressure 127/70 Blood Pressure [Right Arm] Blood Pressure Mean 89 Blood Pressure Mean [Right Arm] Blood Pressure Position [Right Arm] Pulse Oximetry 96 96 96 Pulse Oximetry [Left Index Finger] Oxygen Delivery Method Room Air Room Air Room Air Oxygen Delivery Method [Left Index Finger] 01/20/19 10:22 01/20/19 10:42 01/20/19 11:30 Temperature Temperature Source Sepsis Recent Fever Within 48 Hours Sepsis Action Taken by Nursing Pulse Rate Pulse Rate [Apical] 50 L 49 L 61 Pulse Rhythm Respiratory Rate 20 20 18 Respiratory Effort / Characteristics Non-Labored Spontaneous Respiratory Depth Normal Respiratory Pattern Regular Blood Pressure Blood Pressure [Right Arm] 111/48 L 122/45 L 151/58 H Blood Pressure Mean Blood Pressure Mean [Right Arm] 69 70 89 Blood Pressure Position [Right Arm] Lying Pulse Oximetry 97 94 98 Pulse Oximetry [Left Index Finger] Oxygen Delivery Method Room Air Room Air Room Air Oxygen Delivery Method [Left Index Finger] 01/20/19 12:15 01/20/19 12:45 Temperature 36.4 C L Temperature Source Oral Sepsis Recent Fever Within 48 Hours Sepsis Action Taken by Nursing Pulse Rate 43 L Pulse Rate [Apical] 57 L Pulse Rhythm Respiratory Rate 18 Respiratory Effort / Characteristics Non-Labored Spontaneous Respiratory Depth Normal Respiratory Pattern Regular Blood Pressure Blood Pressure [Right Arm] 161/84 H Blood Pressure Mean Blood Pressure Mean [Right Arm] 109 Blood Pressure Position [Right Arm] Pulse Oximetry 95 Pulse Oximetry [Left Index Finger] 98 Oxygen Delivery Method Room Air Oxygen Delivery Method [Left Index Finger] Room Air Laboratory Data Result diagrams: 01/20/19 09:15 01/20/19 09:15 Lab Results 01/20/19 01/20/19 01/20/19 Range/Units 08:50 09:14 09:15 WBC 11.39 H (4.8-10.8) K/uL RBC 3.69 L (4.2-5.4) M/uL Hgb 11.0 L (12.0-16.0) g/dL Hct 31.9 L (37-47) % MCV 86.4 (80-100) fL MCH 29.8 (25-34) pg MCHC 34.5 (32-36) g/dL RDW Std Deviation 48.6 H (36.4-46.3) fL RDW Coeff of Chal[place] 15.6 H (11.5-14.5) % Plt Count 277 (130-400) K/uL MPV 9.0 (7.4-10.4) fL Immature Gran % (Auto) 0.4 % Neut % (Auto) 75.5 % Lymph % (Auto) 14.7 % [place] % (Auto) 6.7 % Eos % (Auto) 2.5 % Baso % (Auto) 0.2 % Immature Gran # (Auto) 0.04 H (0.00-0.02) K/uL Neut # (Auto) 8.61 H (1.4-6.5) K/uL Lymph # (Auto) 1.68 (1.2-3.4) K/uL [place] # (Auto) 0.76 H (0.11-0.59) K/uL Eos # (Auto) 0.28 (0-0.5) K/uL Baso # (Auto) 0.02 (0-0.2) K/uL PT (9.0-12.0) Seconds INR (0.9-1.1) APTT (21.0-31.0) Seconds PTT Ratio Sodium (136-145) mmol/L Potassium (3.5-5.1) mmol/L Chloride (98-107) mmol/L Carbon Dioxide (21-32) mmol/L Anion Gap (3-11) BUN (7-18) mg/dl Creatinine (0.6-1.2) mg/dl Est Cr Clr Drug Dosing Est GFR ( Amer) Est GFR (Non-Af Amer) BUN/Creatinine Ratio (10-20) Glucose (70-99) mg/dl POC Glucose 167 H (70-99) Osmolality (280-300) mOsm/kg Calcium (8.5-10.1) mg/dl Magnesium (1.8-2.4) mg/dl Total Bilirubin (0.2-1) mg/dl AST (15-37) U/L ALT (12-78) U/L Alkaline Phosphatase (45-117) U/L Troponin I (0-0.045) ng/ml NT-Pro-B Natriuret Pep (0-1800) pg/ml Total Protein (6.4-8.2) gm/dl Albumin (3.4-5.0) gm/dl Globulin (2.5-4.0) gm/dl Albumin/Globulin Ratio (0.9-2) TSH (0.300-4.500) uIu/ml Specimen Hemolysis Urine Color Yellow Urine Appearance Clear (Clear) Urine pH 6.0 (4.5-7.5) Ur Specific [place] 1.012 (1.000-1.030) Urine Protein Negative (Negative) Urine Glucose (UA) Negative (Negative) Urine Ketones Negative (Negative) Urine Blood Negative (Negative) Urine Nitrite Negative (Negative) Urine Bilirubin Negative (Negative) Urine Urobilinogen Negative (Negative) Ur Leukocyte Esterase 2+ H (Negative) Urine WBC (Auto) >30 H (0-5) /hpf Urine RBC (Auto) 0-4 (0-4) /hpf U Hyaline Cast (Auto) 1-5 (0-5) /lpf U Epithel Cells (Auto) 20-30 H (0-5) /lpf Urine Bacteria (Auto) Negative (Negative) 01/20/19 01/20/19 01/20/19 Range/Units 09:15 09:15 11:48 WBC (4.8-10.8) K/uL RBC (4.2-5.4) M/uL Hgb (12.0-16.0) g/dL Hct (37-47) % MCV (80-100) fL MCH (25-34) pg MCHC (32-36) g/dL RDW Std Deviation (36.4-46.3) fL RDW Coeff of [place] (11.5-14.5) % Plt Count (130-400) K/uL MPV (7.4-10.4) fL Immature Gran % (Auto) % Neut % (Auto) % Lymph % (Auto) % [place] % (Auto) % Eos % (Auto) % Baso % (Auto) % Immature Gran # (Auto) (0.00-0.02) K/uL Neut # (Auto) (1.4-6.5) K/uL Lymph # (Auto) (1.2-3.4) K/uL [place] # (Auto) (0.11-0.59) K/uL Eos # (Auto) (0-0.5) K/uL Baso # (Auto) (0-0.2) K/uL PT (9.0-12.0) Seconds INR (0.9-1.1) APTT (21.0-31.0) Seconds PTT Ratio Sodium 128 L (136-145) mmol/L Potassium 4.4 (3.5-5.1) mmol/L Chloride 93 L (98-107) mmol/L Carbon Dioxide 26 (21-32) mmol/L Anion Gap 9.0 (3-11) BUN 8 (7-18) mg/dl Creatinine 1.05 (0.6-1.2) mg/dl Est Cr Clr Drug Dosing Not Reportable Est GFR ( Amer) 58.9 Est GFR (Non-Af Amer) 50.8 BUN/Creatinine Ratio 7.9 L (10-20) Glucose 163 H (70-99) mg/dl POC Glucose (70-99) Osmolality 272 L (280-300) mOsm/kg Calcium 9.0 (8.5-10.1) mg/dl Magnesium 1.5 L (1.8-2.4) mg/dl Total Bilirubin 0.3 (0.2-1) mg/dl AST 22 (15-37) U/L ALT 19 (12-78) U/L Alkaline Phosphatase 83 (45-117) U/L Troponin I < 0.015 (0-0.045) ng/ml NT-Pro-B Natriuret Pep 1363 (0-1800) pg/ml Total Protein 7.2 (6.4-8.2) gm/dl Albumin 3.2 L (3.4-5.0) gm/dl Globulin 4.0 (2.5-4.0) gm/dl Albumin/Globulin Ratio 0.8 L (0.9-2) TSH 1.060 (0.300-4.500) uIu/ml Specimen Hemolysis Urine Color Urine Appearance (Clear) Urine pH (4.5-7.5) Ur Specific [place] (1.000-1.030) Urine Protein (Negative) Urine Glucose (UA) (Negative) Urine Ketones (Negative) Urine Blood (Negative) Urine Nitrite (Negative) Urine Bilirubin (Negative) Urine Urobilinogen (Negative) Ur Leukocyte Esterase (Negative) Urine WBC (Auto) (0-5) /hpf Urine RBC (Auto) (0-4) /hpf U Hyaline Cast (Auto) (0-5) /lpf U Epithel Cells (Auto) (0-5) /lpf Urine Bacteria (Auto) (Negative) 01/20/19 01/20/19 Range/Units 13:39 14:16 WBC (4.8-10.8) K/uL RBC (4.2-5.4) M/uL Hgb (12.0-16.0) g/dL Hct (37-47) % MCV (80-100) fL MCH (25-34) pg MCHC (32-36) g/dL RDW Std Deviation (36.4-46.3) fL RDW Coeff of Chalino (11.5-14.5) % Plt Count (130-400) K/uL MPV (7.4-10.4) fL Immature Gran % (Auto) % Neut % (Auto) % Lymph % (Auto) % [place] % (Auto) % Eos % (Auto) % Baso % (Auto) % Immature Gran # (Auto) (0.00-0.02) K/uL Neut # (Auto) (1.4-6.5) K/uL Lymph # (Auto) (1.2-3.4) K/uL [place] # (Auto) (0.11-0.59) K/uL Eos # (Auto) (0-0.5) K/uL Baso # (Auto) (0-0.2) K/uL PT 10.6 (9.0-12.0) Seconds INR 1.0 (0.9-1.1) APTT 25.1 (21.0-31.0) Seconds PTT Ratio 0.9 Sodium (136-145) mmol/L Potassium (3.5-5.1) mmol/L Chloride (98-107) mmol/L Carbon Dioxide (21-32) mmol/L Anion Gap (3-11) BUN (7-18) mg/dl Creatinine (0.6-1.2) mg/dl Est Cr Clr Drug Dosing Est GFR ( Amer) Est GFR (Non-Af Amer) BUN/Creatinine Ratio (10-20) Glucose (70-99) mg/dl POC Glucose 145 H (70-99) Osmolality (280-300) mOsm/kg Calcium (8.5-10.1) mg/dl Magnesium (1.8-2.4) mg/dl Total Bilirubin (0.2-1) mg/dl AST (15-37) U/L ALT (12-78) U/L Alkaline Phosphatase (45-117) U/L Troponin I (0-0.045) ng/ml NT-Pro-B Natriuret Pep (0-1800) pg/ml Total Protein (6.4-8.2) gm/dl Albumin (3.4-5.0) gm/dl Globulin (2.5-4.0) gm/dl Albumin/Globulin Ratio (0.9-2) TSH (0.300-4.500) uIu/ml Specimen Hemolysis Urine Color Urine Appearance (Clear) Urine pH (4.5-7.5) Ur Specific [place] (1.000-1.030) Urine Protein (Negative) Urine Glucose (UA) (Negative) Urine Ketones (Negative) Urine Blood (Negative) Urine Nitrite (Negative) Urine Bilirubin (Negative) Urine Urobilinogen (Negative) Ur Leukocyte Esterase (Negative) Urine WBC (Auto) (0-5) /hpf Urine RBC (Auto) (0-4) /hpf U Hyaline Cast (Auto) (0-5) /lpf U Epithel Cells (Auto) (0-5) /lpf Urine Bacteria (Auto) (Negative) Administered Medications Gabapentin (Neurontin) 300 mg PO TIDM HAO Stop: 02/19/19 12:59 Last Admin: 01/20/19 13:52 Dose: 300 mg Documented by: [id number] Insulin Aspart (Novolog Flexpen) 0 units SC ACHS HAO Stop: 02/19/19 12:59 Last Admin: 01/20/19 13:53 Dose: 5 units Documented by: [id number] Cosigned by: [id number] Miscellaneous (Order Awaiting Action) 1 ea N/A QS [facility] Stop: 02/19/19 15:59 Last Admin: 01/20/19 15:43 Dose: Not Given Documented by: [id number] Miscellaneous (Order Awaiting Action) 1 ea N/A QS [facility] Stop: 02/19/19 15:59 Last Admin: 01/20/19 15:43 Dose: Not Given Documented by: [id number] Discontinued Medications Ceftriaxone Sodium (Rocephin) Confirm Administered Dose 1,000 mg .ROUTE .STK-MED ONE Stop: 01/20/19 10:10 Last Admin: 01/20/19 10:11 Dose: 1,000 mg Documented by: [id number] Furosemide (Lasix) 40 mg IV NOW STA Stop: 01/20/19 11:10 Last Admin: 01/20/19 11:28 Dose: 40 mg Documented by: [id number] Ceftriaxone Sodium 1,000 mg/ (Dextrose) 60 mls @ 100 mls/hr IV NOW STA; Protocol Stop: 01/20/19 10:00 Last Admin: 01/20/19 10:11 Dose: Not Given Documented by: [id number] Magnesium Sulfate/Dextrose (Magnesium Sulfate / D5w) 1 gm in 100 mls @ 100 mls/hr IV ONE ONE Stop: 01/20/19 14:59 Last Admin: 01/20/19 15:09 Dose: 100 mls/hr Documented by: [id number] Perflutren Lipid Microsphere (Definity) 3 ml IV ONCE ONE Stop: 01/20/19 15:01 Last Admin: 01/20/19 15:02 Dose: 3 ml Documented by: [id number] Discharge Plan Visit Data *Final* Discharge Date/Time: 01/20/19 11:54 Chief Complaint: Altered Mental Status Stated Complaint: [facility]/ [facility] ED Provider: Jimbo Walter ED Midlevel Provider: Megan Drake Discharge Problem: UTI (urinary tract infection), bacterial, Atrial flutter, paroxysmal, Failure of outpatient treatment, Acute alteration in mental status Patient Disposition: Admitted As Inpatient Discharge Instructions Interventions: ED Discharge Assessment Last Done: 01/20/19 11:54
--- NOTE | 2019-01-20 09:05 | XRay Report ---
XR chest 1V portable CLINICAL HISTORY: confusion mental status change COMPARISON STUDY: 12/11/2017 FINDINGS: Mild stable cardiomegaly. Slight increase in prominence of pulmonary vasculature. Diaphragm s are smooth. IMPRESSION: Mild congestive heart failure. The above report was generated using voice recognition software. It may contain grammatical, syntax or spelling errors. Electronically signed by: Madi Hanson M.D. 01/20/2019 9:02 AM
[2019-01-20] MEDS ORDERED: cefTRIAXone SODIUM 1,000 MG in DEXTROSE 5% 50 ML IV STA (09:25)
[2019-01-20 09:28] LABS: Basophils # (auto) 0.02 K/uL (0-0.2); Basophils % (auto) 0.2 %; Eosinophils # (auto) 0.28 K/uL (0-0.5); Eosinophils % (auto) 2.5 %; Hematocrit (blood only) 31.9 % (37-47); Immature Granulocytes # (auto) 0.04 K/uL (0.00-0.02); Immature Granulocytes % (auto) 0.4 %; Lymphocytes # (auto) 1.68 K/uL (1.2-3.4); Lymphocytes % (auto) 14.7 %; Mean Corpuscular Hgb Conc 34.5 g/dL (32-36); Mean Corpuscular Volume 86.4 fL (80-100); Monocytes # (auto) 0.76 K/uL (0.11-0.59); Monocytes % (auto) 6.7 %; Neutrophils # (auto) 8.61 K/uL (1.4-6.5); Neutrophils % (auto) 75.5 %; Platelet Count 277 K/uL (130-400); RDW Coefficient of Variation 15.6 % (11.5-14.5); RDW Standard Deviation 48.6 fL (36.4-46.3); Red Blood Count 3.69 M/uL (4.2-5.4); White Blood Count 11.39 K/uL (4.8-10.8)
--- NOTE | 2019-01-20 09:36 | CT Scan Report ---
CT head/brain wo con CT DOSE: 537.48 mGy.cm HISTORY: Mental status change confusion TECHNIQUE: Multiaxial CT images of the head were performed without the use of intravenous contrast. A dose lowering technique was utilized adhering to the principles of ALARA. Comparison: 12/11/2017 Findings: The paranasal sinuses and mastoid air cells are clear. The calvarium and skull base are int act. The ventricles and sulci are within normal limits. There is no mass, hematoma, midline shift, or acute infarct. Impression: No acute intracranial abnormality. The above report was generated using voice recognition software. It may contain grammatical, syntax or spelling errors. Electronically signed by: Madi Hanson M.D. 01/20/2019 9:34 AM
[2019-01-20 09:58] LABS: Alanine Aminotransferase 19 U/L (12-78); Albumin Level 3.2 gm/dl (3.4-5.0); Aspartate Aminotransferase 22 U/L (15-37); BUN Creatinine Ratio 7.9 (10-20); Blood Urea Nitrogen 8 mg/dl (7-18); Carbon Dioxide 26 mmol/L (21-32); Chloride 93 mmol/L (98-107); Est GFR (African American) 58.9; Est GFR (Non-African American) 50.8; Glucose 163 mg/dl (70-99); Magnesium 1.5 mg/dl (1.8-2.4); Potassium 4.4 mmol/L (3.5-5.1); Sodium 128 mmol/L (136-145)
[2019-01-20 10:02] LABS: Albumin Globulin Ratio 0.8 (0.9-2); Alkaline Phosphatase 83 U/L (45-117); Bilirubin,Total 0.3 mg/dl (0.2-1); Total Protein 7.2 gm/dl (6.4-8.2); Troponin I < 0.015 ng/ml (0-0.045)
[2019-01-20] MEDS ORDERED: cefTRIAXone SODIUM 1000MG/50ML D5W ONE (10:09)
--- NOTE | 2019-01-20 10:43 | Emergency Department Note ---
ED Visit Note Patient was seen by our PA/WAITER/WAITRESS [employer]IN CLASS. I was involved in the patient's care and did evaluate the patient myself. I was involved in the care throughout the ER stay. Patient presents with some confusion. She is being treated as an outpatient for UTI. Work-up here suggests ongoing UTI, there is a white blood cell count elevation. Brain CT was negative for acute disease. Given the change in mental status, given the leukocytosis and failed outpatient treatment for the urinary infection, I do think a hospital stay is warranted. Patient received IV antibiotics. The on-call hospitalist was consulted. .
[2019-01-20] MEDS ORDERED: FUROSEMIDE 40 MG/4 ML VIAL IV STA (11:09)
--- NOTE | 2019-01-20 11:40 | History & Physical Report ---
Date of Service January 20, 2019 Assessment & Plan (1) Acute metabolic encephalopathy: Provide supportive care. Treat underlying UTI and hyponatremia Present on Admission?: Yes (2) Atrial flutter, paroxysmal: The patient currently is bradycardic but blood pressure is normal. Atenolol is on hold. Consult cardiology. Obtain cardiac echo. Continue telemetry Present on Admission?: Yes (3) Diastolic CHF, acute on chronic: Bernal catheter has been placed. Administer intravenous Lasix 40 mg IV every 12 hours. Monitor intake and output. Serial chest x-ray. 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 Amitriptyline, duloxetine, sertraline, spironolactone, and Flomax have all been discontinued. Serial labs ordered. Fluid restriction ordered. Present on Admission?: Yes (5) Hypomagnesemia: Magnesium oxide ordered. Serial magnesium levels Present on Admission?: Yes (6) UTI (urinary tract infection), bacterial: Klebsiella isolated in recent culture. Intravenous Rocephin daily started in the ED. Present on Admission?: Yes History of Present Illness Chief Complaint: Altered mental status, weakness Primary Care Provider: [facility] 78-year-old female with a history of dementia and multiple medical problems who presents with altered mental status. She was recently diagnosed with a Klebsiella UTI several days ago and has been on nitrofurantoin. She was sent to the ED today due to persistent altered mental status. At the time of my examination she is alert and oriented to name place and month. She has what appears to be chronic hyponatremia with sodium level 128. She has atrial flutter with moderate bradycardia but normal blood pressure. She has a history of atrial fibrillation in the past but no previous history of atrial flutter to my knowledge. Her magnesium level is 1.5 and chest x-ray reveals mild CHF. Serum osmolarity and BNP are pending. Head CT scan is negative. Rocephin has been administered in the ED along with intravenous Lasix. Bernal catheter has been placed. Atenolol will remain on hold due to bradycardia with atrial flutter. Cardiology consultation has been requested. She will be admitted to a telemetry bed. 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 Multiple medications will be discontinued including amitriptyline, duloxetine, sertraline, Spironolactone, and Flomax. Allergies Allergy/AdvReac Type Severity Reaction Status Date / Time KODAK Inhibitors Allergy Unknown Unknown Verified 12/16/18 02:05 besnon Allergy Unknown Verified 12/16/18 02:05 grass pollen Allergy Unknown Verified 12/16/18 02:05 perfume Allergy Unknown Verified 12/16/18 02:05 Home Medications Home Medications Medication Instructions Recorded Confirmed Type Myrbetriq 50 mg PO QAM 05/16/18 01/20/19 History Restasis 1 drp OPHTHALMIC (EYE) BID 05/16/18 01/20/19 History acetaminophen [Tylenol Extra 1,000 mg PO Q8 PRN 05/16/18 01/20/19 History Strength] amitriptyline 100 mg PO HS 05/16/18 12/16/18 History atenolol 50 mg PO DAILY 05/16/18 01/20/19 History clopidogrel [Plavix] 75 mg PO DAILY 05/16/18 01/20/19 History dextromethorphan polistirex 10 ml PO Q12H PRN 05/16/18 12/16/18 History [Delsym 12 hour] donepezil 5 mg PO HS 05/16/18 01/20/19 History duloxetine 60 mg PO BID 05/16/18 01/20/19 History guaifenesin [Mucinex] 600 mg PO Q12H PRN 05/16/18 01/20/19 History levothyroxine 250 mcg PO QAM 05/16/18 01/20/19 History loperamide 1 mg PO DIRECTED PRN MDD 3 per 05/16/18 01/20/19 History day magnesium hydroxide [Milk of 2 - 4 tbsp PO DAILY PRN 05/16/18 01/20/19 History Magnesia] methenamine hippurate 1 g PO QPM 05/16/18 01/20/19 History metolazone 2.5 mg PO 2XWK 05/16/18 01/20/19 History mometasone [Nasonex] 1 spray INTRANASAL BID 05/16/18 12/16/18 History montelukast [Singulair] 10 mg PO HS 05/16/18 01/20/19 History nystatin 1 applic TOPICAL BID 05/16/18 12/16/18 History pantoprazole 40 mg PO BIDM 05/16/18 12/16/18 History polyethylene glycol 3350 [Miralax] 17 g PO DAILY PRN 05/16/18 01/20/19 History potassium chloride 60 meq PO BIDM 05/16/18 01/20/19 History ranitidine HCl 150 mg PO BIDM 05/16/18 01/20/19 History sertraline 25 mg PO QAM 05/16/18 01/20/19 History spironolactone 25 mg PO DAILY 05/16/18 01/20/19 History tamsulosin [Flomax] 0.4 mg PO DAILY 05/16/18 01/20/19 History trazodone 200 mg PO HS 05/16/18 01/20/19 History vitamin B complex 1 tab PO QAM 05/16/18 01/20/19 History Caltrate 600 + D 1 tab PO BIDM 09/14/18 01/20/19 History Systane (PF) 1 drp OPHTHALMIC (EYE) TID 09/14/18 01/20/19 History albuterol sulfate [ProAir HFA] 2 puff INHALATION QID PRN 09/14/18 01/20/19 History aspirin 81 mg PO DAILY 09/14/18 01/20/19 History conjugated estrogens 1 applic TOPICAL 3XWK 09/14/18 12/16/18 History ferrous sulfate [iron] 325 mg PO 3XWK 09/14/18 12/16/18 History gabapentin 300 mg PO TIDM 09/14/18 01/20/19 History glucosamine sulfate [Glucosamine] 1,500 mg PO QAM 09/14/18 01/20/19 History ketoconazole [Nizoral] 1 applic TOPICAL DAILY 09/14/18 01/20/19 History metolazone 2.5 mg PO DAILY PRN 09/14/18 12/16/18 History multivitamin 1 tab PO QAM 09/14/18 01/20/19 History Calmoseptine 1 applic TOPICAL TID PRN 12/12/18 12/16/18 History Reguloid 1 tbsp PO BID 12/12/18 01/20/19 History Systane Gel 1 drp OPB HS 12/12/18 01/20/19 History ketoconazole 1 applic TOPICAL DAILY PRN 12/12/18 12/16/18 History lorazepam 1 mg PO HS 12/12/18 01/20/19 History magnesium sulfate (bulk) [Epsom 1 applic TOPICAL DAILY 12/12/18 12/16/18 History Salt] nystatin 1 applic TOPICAL BID PRN 12/12/18 01/20/19 History Atrovent HFA 2 puff INHALATION QID #0 g 12/14/18 01/20/19 Rx diclofenac sodium [Voltaren] 1 applic EXT BID #1 g 12/22/18 01/20/19 Rx tramadol 50 mg PO Q6H PRN #15 tab 12/23/18 01/20/19 Rx Past Med/Surg History Social History Preferred Language: Icelandic Communication Ability: Effective Beliefs That Will Affect Care: None marital status: / Current Living Situation: Personal Care Facility Current Living Situation Comment[facility] current occupational status: retired Feels Safe at Home: Yes Smoking Status: Former smoker Hx Alcohol Use: No Hx Substance Use: No Review of Systems Review of Systems: All systems reviewed & are unremarkable except as noted in HPI & below Physical Exam Constitutional: Morbidly obese. She is alert and oriented to name place and month Eyes: PERRL, conjunctivae normal, anicteric sclerae ENMT: external ear and nose normal, oropharynx normal Neck: trachea midline, no thyromegaly Respiratory: normal respiratory effort, lungs clear to auscultation Cardiovascular: Bradycardic irregular rhythm. Grade 1/6 systolic murmur at the apex. Negative S3 Gastrointestinal (Abdomen): normal bowel sounds, soft, nontender, no hepatosplenomegaly Musculoskeletal: Mild generalized weakness. Moves all extremities symmetrically. She is morbidly obese Skin: no rashes, warm and dry Neurologic: CN's II-XI intact bilaterally and moves all extremities; no focal motor deficits Results & Data Vital Signs (Past 12 Hours) Vital Signs Temp Pulse Pulse Resp BP BP Pulse Ox 01/20/19 10:42 49 L 20 122/45 L 94 01/20/19 10:22 50 L 20 111/48 L 97 01/20/19 09:12 96 01/20/19 08:54 76 12 96 01/20/19 08:32 36.7 C 76 12 127/70 96 Laboratory Results 01/20/19 09:15 01/20/19 09:15
[2019-01-20] MEDS ORDERED: NITROGLYCERIN SL 0.4 MG/TAB TAB SL PRN (12:45)
[2019-01-20] MEDS ORDERED: POLYETHYLENE (MIRALAX) 17 GM PACK PO PRN (12:45)
[2019-01-20] MEDS ORDERED: ALUMINUM/MAGNESIUM SUSP 30 ML UDC PO PRN (12:45)
[2019-01-20] MEDS ORDERED: ALBUTEROL HFA 8 GM INHALER INH PRN (12:45)
[2019-01-20] MEDS ORDERED: ONDANSETRON INJ 2 MG/ML 2 ML VIAL IV PRN (12:45)
[2019-01-20] MEDS: GABAPENTIN 300 MG CAP PO SCH ×2 (13:52→17:23)
[2019-01-20] MEDS: INSULIN ASPART 100 UNITS/ML 3 ML PEN SC SCH ×3 (13:53→21:32)
[2019-01-20] MEDS ORDERED: MAGNESIUM SULFATE / D5W 1 GM/100 ML BAG IV ONE (14:00)
[2019-01-20 14:51] LABS: Partial Thromboplastin Ratio 0.9; Partial Thromboplastin Time 25.1 Seconds (21.0-31.0); Prothrombin Time 10.6 Seconds (9.0-12.0)
[2019-01-20] MEDS ORDERED: PERFLUTREN LIPID MICROSPHERE (DEFINITY) IV ONE (15:00)
[2019-01-20] MEDS: ENOXAPARIN INJ 40 MG/0.4 ML SYR SQ SCH (16:33)
[2019-01-20] MEDS: IPRATROPIUM BROMIDE HFA INHALER INH SCH ×2 (16:35→20:49)
[2019-01-20] MEDS: CALCIUM 600MG + VIT D 400 IU TAB PO SCH (17:22)
[2019-01-20] MEDS: POTASSIUM CHLORIDE 20 MEQ TABCR PO SCH (17:24)
[2019-01-20] MEDS: PANTOprazole 40 MG TAB PO SCH (17:26)
--- NOTE | 2019-01-20 17:52 | Cardiology Consultation ---
Date of Consultation January 20, 2019 Assessment & Plan (1) Diastolic CHF, acute on chronic: Dyspnea did not appear to be a prominent feature of her presentation, however her mental status is quite compromised. There was a suggestion of pulmonary vascular congestion on her chest x-ray, but she is also very obese. Her lung examination is normal currently. Her N-terminal proBNP was normal for age. She does not have evidence of peripheral edema. It is possible that with a slow heart rate and reduced cardiac output overall she may have an element of pulmonary congestion but I believe this has been resolved. (2) Atrial flutter, paroxysmal: This appears to be new. She seems to have had a very remote diagnosis of atrial fibrillation that is not well established in her outpatient record. In any event, she appears to have a typical right atrial flutter based on her electrocardiogram. Her rates are slow which is curious given her relatively high sinus rates during her last admission. She likely has an element of AV anthony conduction disease of unclear severity. In the past she had a first- degree AV block. Certainly she can do without the atenolol and this has been held. I think if her ventricular rates returned to normal and she is not symptomatic we will simply leave her in atrial flutter. Other options for treatment would involve cardioversion or even catheter-based therapy. I think these are less attractive given her other comorbidities. There is certainly a concern regarding significant bradycardia in a sinus rhythm although hopefully her rates will improve with discontinuation of atenolol. One concern would be her risk for thromboembolic phenomenon. I had a discussion with her son today and I would recommend systemic anticoagulation. This is not an urgent matter.Given her normal renal function she will be a good candidate for either Xarelto or Eliquis at standard doses. History of Present Illness Reason for Consultation: Atrial flutter Requesting Physician: Vangie Attending Physician: Floyd Vences MD History of Present Illness The patient is a 78-year-old woman with a remote history of atrial fibrillation and nonobstructive coronary disease who was admitted to [facility] with symptoms of confusion and altered mental status. The patient had been admitted recently for both a urinary tract infection as well as cellulitis. She lives in an assisted living facility and was noted by the nursing staff to become more confused recently. She was sent to [facility] for an evaluation. She was discovered to have evidence of urinary tract infection, hyp onatremia and atrial flutter with a slow ventricular response. There was some concern regarding volume overload and she was administered some Lasix in the emergency room. Unfortunately, the patient is somewhat confused. Submental history was provided by her son who was present at the bedside today. It seems that she gets anxious at times and often asks her son or other family members for advice. She has had repetitive comments recently. During the interview today she did not endorse any symptoms of chest discomfort. She has not been aware of any palpitations. She denies significant breathing trouble. According to the son she occasionally will use CPAP at night but not always. She has had some lower extremity edema which is chronic in nature. She denies dizziness or lightheadedness. She generally ambulates with a walker but is very sedentary overall. Allergies Allergy/AdvReac Type Severity Reaction Status Date / Time KODAK Inhibitors Allergy Unknown Unknown Verified 12/16/18 02:05 benson Allergy Unknown Verified 12/16/18 02:05 grass pollen Allergy Unknown Verified 12/16/18 02:05 perfume Allergy Unknown Verified 12/16/18 02:05 Home Medications Home Medications Medication Instructions Recorded Confirmed Type Myrbetriq 50 mg PO QAM 05/16/18 01/20/19 History Restasis 1 drp OPHTHALMIC (EYE) BID 05/16/18 01/20/19 History acetaminophen [Tylenol Extra 1,000 mg PO Q8 PRN 05/16/18 01/20/19 History Strength] atenolol 50 mg PO DAILY 05/16/18 01/20/19 History clopidogrel [Plavix] 75 mg PO DAILY 05/16/18 01/20/19 History dextromethorphan polistirex 10 ml PO Q12H PRN 05/16/18 01/20/19 History [Delsym 12 hour] donepezil 5 mg PO HS 05/16/18 01/20/19 History duloxetine 60 mg PO BID 05/16/18 01/20/19 History guaifenesin [Mucinex] 600 mg PO Q12H PRN 05/16/18 01/20/19 History levothyroxine 250 mcg PO QAM 05/16/18 01/20/19 History loperamide 1 mg PO DIRECTED PRN MDD 3 per 05/16/18 01/20/19 History day magnesium hydroxide [Milk of 2 - 4 tbsp PO DAILY PRN 05/16/18 01/20/19 History Magnesia] methenamine hippurate 1 g PO QPM 05/16/18 01/20/19 History metolazone 2.5 mg PO 2XWK 05/16/18 01/20/19 History mometasone [Nasonex] 1 spray INTRANASAL BID 05/16/18 01/20/19 History montelukast [Singulair] 10 mg PO HS 05/16/18 01/20/19 History nystatin 1 applic TOPICAL BID 05/16/18 01/20/19 History polyethylene glycol 3350 [Miralax] 17 g PO DAILY PRN 05/16/18 01/20/19 History potassium chloride 60 meq PO BIDM 05/16/18 01/20/19 History ranitidine HCl 150 mg PO BIDM 05/16/18 01/20/19 History sertraline 25 mg PO QAM 05/16/18 01/20/19 History spironolactone 25 mg PO DAILY 05/16/18 01/20/19 History tamsulosin [Flomax] 0.4 mg PO DAILY 05/16/18 01/20/19 History trazodone 200 mg PO HS 05/16/18 01/20/19 History vitamin B complex 1 tab PO QAM 05/16/18 01/20/19 History Caltrate 600 + D 1 tab PO BIDM 09/14/18 01/20/19 History Systane (PF) 1 drp OPHTHALMIC (EYE) TID 09/14/18 01/20/19 History albuterol sulfate [ProAir HFA] 2 puff INHALATION QID PRN 09/14/18 01/20/19 Hist ory aspirin 81 mg PO DAILY 09/14/18 01/20/19 History conjugated estrogens 1 applic TOPICAL 3XWK 09/14/18 01/20/19 History gabapentin 300 mg PO TIDM 09/14/18 01/20/19 History glucosamine sulfate [Glucosamine] 1,500 mg PO QAM 09/14/18 01/20/19 History ketoconazole [Nizoral] 1 applic TOPICAL DAILY 09/14/18 01/20/19 History metolazone 2.5 mg PO DAILY PRN 09/14/18 01/20/19 History multivitamin 1 tab PO QAM 09/14/18 01/20/19 History Calmoseptine 1 applic TOPICAL TID PRN 12/12/18 01/20/19 History Reguloid 1 tbsp PO BID 12/12/18 01/20/19 History Systane Gel 1 drp OPB HS 12/12/18 01/20/19 History ketoconazole 1 applic TOPICAL DAILY PRN 12/12/18 01/20/19 History lorazepam 1 mg PO HS 12/12/18 01/20/19 History magnesium sulfate (bulk) [Epsom 1 applic TOPICAL DAILY 12/12/18 01/20/19 History Salt] nystatin 1 applic TOPICAL BID PRN 12/12/18 01/20/19 History Atrovent HFA 2 puff INHALATION QID #0 g 12/14/18 01/20/19 Rx diclofenac sodium [Voltaren] 1 applic EXT BID #1 g 12/22/18 01/20/19 Rx tramadol 50 mg PO Q6H PRN #15 tab 12/23/18 01/20/19 Rx amitriptyline 25 mg PO DAILY 01/20/19 01/20/19 History ferrous sulfate [Iron (ferrous 1 tab PO DIRECTED 01/20/19 01/20/19 History sulfate)] pantoprazole 40 mg PO BID 01/20/19 01/20/19 History Patient History Medical History Chronic hyponatremia (Chronic) Diastolic CHF, acute on chronic (Acute) Atrial flutter, paroxysmal (Acute) Acute metabolic encephalopathy (Acute) Hypomagnesemia (Acute) Morbid obesity with BMI of 50.0-59.9, adult YARI (obstructive sleep apnea) Hyponatremia Diastolic CHF, chronic CAD (coronary artery disease) Chronic interstitial cystitis Sepsis (Acute) Confusion (Acute) UTI (urinary tract infection) (Acute) Diabetes (Chronic) TIA (transient ischemic attack) (Resolved) Pulmonary embolism (Resolved) UTI (urinary tract infection) (Resolved) Cardiac valve prolapse (Chronic) Balance disorder Basal pneumonia of both lungs (Acute) Diabetic peripheral neuropathy associated with type 2 diabetes mellitus Foot deformity Foot pain Loss of sensation Family History Other Family history non-contributory Social History Preferred Language: Wallisian Communication Ability: Effective Healthcare Risk Control Consultant Required: No Beliefs That Will Affect Care: None marital status: / Current Living Situation: Personal Care Facility Current Living Situation Comment: [facility] current occupational status: retired Other Information That Helps Us Care for You: No Feels Safe at Home: Yes Safety Concerns: Feels Safe At This Time Smoking Status: Former smoker Do You Dip or Chew Tobacco: No Second Hand Exposure: No Hx Alcohol Use: No Hx Substance Use: No Review of Systems Review of Systems: Unobtainable due to cognitive status Physical Exam Physical Exam: She is alert and answered her son. She made repetitive comments. HEENT: Sclerae are anicteric. Pupils are equal and reactive to light and accommodation. Extraocular movements were intact. Neuro: Cranial nerves intact Neck: Examination of the submandibular region did not reveal any significant lymphadenopathy. Carotids are palpable bilaterally and free of bruits on auscul tation. There was no evidence of jugular venous distention. The thyroid was not enlarged. Lungs: Lungs are clear to auscultation bilaterally. There are no rales wheezes or rhonchi. She has normal respiratory effort without use of accessory muscles. There is normal pulmonary excursion. Cardiac: The rhythm was regular but slow. S1 and S2 were normal. There are no murmurs on examination. The PMI was not markedly displaced on palpation. Abdomen: The abdomen was soft and nontender. Extremities: Patient has bilateral radial pulses that are equal in intensity. There is no evidence cyanosis or clubbing. Minimal edema. Skin: There are no rashes noted on examination today. Results & Data Vital Signs (Past 12 Hours) Vital Signs Temp Pulse Pulse Resp BP BP Pulse Ox 01/20/19 12:45 01/20/19 12:15 36.4 C L 43 L 57 L 18 161/84 H 95 01/20/19 11:30 61 18 151/58 H 98 01/20/19 10:42 49 L 20 122/45 L 94 01/20/19 10:22 50 L 20 111/48 L 97 01/20/19 09:12 96 01/20/19 08:54 76 12 96 01/20/19 08:32 36.7 C 76 12 127/70 96 Pulse Ox 01/20/19 12:45 98 01/20/19 12:15 01/20/19 11:30 01/20/19 10:42 01/20/19 10:22 01/20/19 09:12 01/20/19 08:54 01/20/19 08:32 Laboratory Results Abnormal Lab Results 01/20/19 01/20/19 01/20/19 08:50 09:14 09:15 WBC 11.39 H RBC 3.69 L Hgb 11.0 L Hct 31.9 L MCV 86.4 MCH 29.8 MCHC 34.5 RDW Std Deviation 48.6 H RDW Coeff of Chalino 15.6 H Plt Count 277 MPV 9.0 Immature Gran % (Auto) 0.4 Neut % (Auto) 75.5 Lymph % (Auto) 14.7 Hill % (Auto) 6.7 Eos % (Auto) 2.5 Baso % (Auto) 0.2 Immature Gran # (Auto) 0.04 H Neut # (Auto) 8.61 H Lymph # (Auto) 1.68 Hill # (Auto) 0.76 H Eos # (Auto) 0.28 Baso # (Auto) 0.02 PT INR APTT PTT Ratio Sodium Potassium Chloride Carbon Dioxide Anion Gap BUN Creatinine Est Cr Clr Drug Dosing Est GFR ( Amer) Est GFR (Non-Af Amer) BUN/Creatinine Ratio Glucose POC Glucose 167 H Osmolality Calcium Magnesium Total Bilirubin AST ALT Alkaline Phosphatase Troponin I NT-Pro-B Natriuret Pep Total Protein Albumin Globulin Albumin/Globulin Ratio TSH Specimen Hemolysis Urine Color Yellow Urine Appearance Clear Urine pH 6.0 Ur Specific [place] 1.012 Urine Protein Negative Urine Glucose (UA) Negative Urine Ketones Negative Urine Blood Negative Urine Nitrite Negative Urine Bilirubin Negative Urine Urobilinogen Negative Ur Leukocyte Esterase 2+ H Urine WBC (Auto) >30 H Urine RBC (Auto) 0-4 U Hyaline Cast (Auto) 1-5 U Epithel Cells (Auto) 20-30 H Urine Bacteria (Auto) Negative 01/20/19 01/20/19 01/20/19 09:15 09:15 11:48 WBC RBC Hgb Hct MCV MCH MCHC RDW Std Deviation RDW Coeff of Chalino Plt Count MPV Immature Gran % (Auto) Neut % (Auto) Lymph % (Auto) Hill % (Auto) Eos % (Auto) Baso % (Auto) Immature Gran # (Auto) Neut # (Auto) Lymph # (Auto) Hill # (Auto) Eos # (Auto) Baso # (Auto) PT INR APTT PTT Ratio Sodium 128 L Potassium 4.4 Chloride 93 L Carbon Dioxide 26 Anion Gap 9.0 BUN 8 Creatinine 1.05 Est Cr Clr Drug Dosing Not Reportable Est GFR ( Amer) 58.9 Est GFR (Non-Af Amer) 50.8 BUN/Creatinine Ratio 7.9 L Glucose 163 H POC Glucose Osmolality 272 L Calcium 9.0 Magnesium 1.5 L Total Bilirubin 0.3 AST 22 ALT 19 Alkaline Phosphatase 83 Troponin I < 0.015 NT-Pro-B Natriuret Pep 1363 Total Protein 7.2 Albumin 3.2 L Globulin 4.0 Albumin/Globulin Ratio 0.8 L TSH 1.060 Specimen Hemolysis Urine Color Urine Appearance Urine pH Ur Specific [place] Urine Protein Urine Glucose (UA) Urine Ketones Urine Blood Urine Nitrite Urine Bilirubin Urine Urobilinogen Ur Leukocyte Esterase Urine WBC (Auto) Urine RBC (Auto) U Hyaline Cast (Auto) U Epithel Cells (Auto) Urine Bacteria (Auto) 01/20/19 01/20/19 01/20/19 13:39 14:16 16:09 WBC RBC Hgb Hct MCV MCH MCHC RDW Std Deviation RDW Coeff of Chalino Plt Count MPV Immature Gran % (Auto) Neut % (Auto) Lymph % (Auto) Hill % (Auto) Eos % (Auto) Baso % (Auto) Immature Gran # (Auto) Neut # (Auto) Lymph # (Auto) Hill # (Auto) Eos # (Auto) Baso # (Auto) PT 10.6 INR 1.0 APTT 25.1 PTT Ratio 0.9 Sodium Potassium Chloride Carbon Dioxide Anion Gap BUN Creatinine Est Cr Clr Drug Dosing Est GFR ( Amer) Est GFR (Non-Af Amer) BUN/Creatinine Ratio Glucose POC Glucose 145 H 152 H Osmolality Calcium Magnesium Total Bilirubin AST ALT Alkaline Phosphatase Troponin I NT-Pro-B Natriuret Pep Total Protein Albumin Globulin Albumin/Globulin Ratio TSH Specimen Hemolysis Urine Color Urine Appearance Urine pH Ur Specific [place] Urine Protein Urine Glucose (UA) Urine Ketones Urine Blood Urine Nitrite Urine Bilirubin Urine Urobilinogen Ur Leukocyte Esterase Urine WBC (Auto) Urine RBC (Auto) U Hyaline Cast (Auto) U Epithel Cells (Auto) Urine Bacteria (Auto) Diagnostic Findings Chest x-ray obtained at the time of admission revealed cardiomegaly with mild pulmonary vascular congestion. Echocardiogram obtained today revealed preserved LV systolic function. Normal right ventricular function. Chamber dimensions were essentially normal. Mild mitral regurgitation. ECG Additional Comments: Atrial flutter with slow ventricular response.
[2019-01-20] MEDS ORDERED: PNEUMOCOCCAL ADMINISTRATION CHARGE ONE (18:45)
[2019-01-20] MEDS ORDERED: PNEUMOCOCCAL POLYSACCHARIDES 25 MCG/0.5 ML VIAL/SYR IM ONE (18:45)
[2019-01-20] MEDS: FLUTICASONE PROPIONATE NA SPR 16 GM BTL SCH (20:50)
[2019-01-20] MEDS: DONEPEZIL HCL 5 MG TAB PO SCH (20:51)
[2019-01-20] MEDS: MAGNESIUM OXIDE 400 MG TAB PO SCH (20:51)
[2019-01-20] MEDS: TRAZODONE HCL 100 MG TAB PO SCH (20:52)
[2019-01-20] MEDS: MONTELUKAST SODIUM 10 MG TABLET PO SCH (20:52)
[2019-01-20] MEDS: DICLOFENAC SOD 1% GEL 100 GM TUBE EXT SCH (20:53)
[2019-01-20] MEDS: ARTIFICIAL TEARS OPB SCH (21:46)
[2019-01-20] MEDS: METHENAMINE HIPPURATE 1 GM TAB PO SCH (21:46)
[2019-01-20] MEDS: FUROSEMIDE 40 MG in SYRINGE 0 ML IV SCH (21:47)
[2019-01-21] MEDS: LEVOTHYROXINE SODIUM 125 MCG TABLET PO SCH (06:06)
[2019-01-21 06:07] LABS: BUN Creatinine Ratio 11.8 (10-20); Creatinine Clr Calc Pharmacy 52.5 ml/min; Est GFR (African American) 59.6; Est GFR (Non-African American) 51.4; Magnesium 1.8 mg/dl (1.8-2.4); Potassium 3.8 mmol/L (3.5-5.1)
[2019-01-21] MEDS: PANTOprazole 40 MG TAB PO SCH ×2 (07:59→16:14)
[2019-01-21] MEDS: ASPIRIN 81 MG ECTAB PO SCH (07:59)
[2019-01-21] MEDS: MULTIVITAMIN TAB PO SCH (08:00)
[2019-01-21] MEDS: CALCIUM 600MG + VIT D 400 IU TAB PO SCH ×2 (08:00→16:14)
[2019-01-21] MEDS: CLOPIDOGREL BISULFATE 75 MG TAB PO SCH (08:00)
[2019-01-21] MEDS: POTASSIUM CHLORIDE 20 MEQ TABCR PO SCH ×2 (08:00→16:13)
[2019-01-21] MEDS: FLUTICASONE PROPIONATE NA SPR 16 GM BTL SCH ×2 (08:01→20:59)
[2019-01-21] MEDS: VITAMIN B COMPLEX TAB PO SCH (08:01)
[2019-01-21] MEDS: GABAPENTIN 300 MG CAP PO SCH ×3 (08:01→16:14)
[2019-01-21] MEDS: IPRATROPIUM BROMIDE HFA INHALER INH SCH ×4 (08:02→20:54)
[2019-01-21] MEDS: INSULIN ASPART 100 UNITS/ML 3 ML PEN SC SCH ×4 (08:41→22:03)
[2019-01-21] MEDS: MAGNESIUM OXIDE 400 MG TAB PO SCH ×2 (08:45→20:58)
[2019-01-21] MEDS: DICLOFENAC SOD 1% GEL 100 GM TUBE EXT SCH ×2 (08:45→20:59)
[2019-01-21] MEDS ORDERED: ASPIRIN 81 MG ECTAB PO SCH (09:00)
[2019-01-21] MEDS: ACETAMINOPHEN 325 MG TAB PO PRN (09:47)
[2019-01-21] MEDS: cefTRIAXone SODIUM 2,000 MG in DEXTROSE 5% 50 ML IV SCH (11:29)
[2019-01-21] MEDS: FUROSEMIDE 40 MG in SYRINGE 0 ML IV SCH ×2 (11:30→20:57)
--- NOTE | 2019-01-21 12:35 | Cardiology Progress Note ---
Date of Service January 21, 2019 Assessment & Plan (1) Diastolic CHF, acute on chronic: Lung examination is normal. She is not appear to have any dyspnea at rest. She has some dyspnea with ambulation but is likely due to deconditioning rather than heart failure. (2) Atrial flutter, paroxysmal: Her heart rates are in the normal range today. She may even have some higher rates at times. I think we can continue to monitor her off of atenolol and decide if a small dose of beta-moira would be necessary should she have steadily climbing ventricular rates. She would benefit from systemic anticoagulation and given her normal renal function I think she could be dosed either with Xarelto 20 milligrams daily or Eliquis 5 milligrams twice daily. With the addition of an anticoagulant she can stop her aspirin and Plavix. Subjective The patient's main clinic this morning was a headache. She has frequent headaches and was just administered some Tylenol. She was ambulatory for brief period yesterday using a walker. She had some mild dyspnea and fatigue at the conclusion of her walk. She has not report symptoms of chest pain, palpitations or dizziness. Review of Systems Review of Systems: Per HPI Physical Exam Physical Exam: She was alert today answer questions appropriately. HEENT: Sclerae are anicteric. Pupils are equal and reactive to light and accommodation. Extraocular movements were intact. Neuro: Cranial nerves intact Lungs: Lungs are clear to auscultation bilaterally. There are no rales wheezes or rhonchi. She has normal respiratory effort without use of accessory muscles. There is normal pulmonary excursion. Cardiac: The rhythm was regular with ectopy. S1 and S2 were normal. There are no murmurs on examination. The PMI was not markedly displaced on palpation. Abdomen: Obese Results & Data Vital Signs (Past 12 Hours) Vital Signs Temp Pulse Pulse Resp BP Pulse Ox 01/21/19 07:25 68 01/21/19 07:00 36.5 C 68 20 106/72 95 01/21/19 04:27 36.6 C 87 20 100/62 95
[2019-01-21] MEDS: SENNA 8.6 MG TAB PO SCH (13:46)
[2019-01-21] MEDS: SERTRALINE HCL 50 MG TABLET PO SCH (16:10)
[2019-01-21] MEDS: ENOXAPARIN INJ 40 MG/0.4 ML SYR SQ SCH (16:11)
--- NOTE | 2019-01-21 19:23 | Hospitalist Progress Note ---
Date of Service January 21, 2019 Assessment & Plan (1) Acute metabolic encephalopathy: suspect 2nd to UTI. see "UTI" below. mental status already improving although not back to baseline per son. CT head w/o acute process. continue supportive care. would NOT restart elavil. has been on ativan, zoloft, and cymbalta for some time -- doubt these are causing confusion -- will continue them. in light of new onset a flutter - if mental status does not improve - consider MRI brain to r/o subacute strokes. Present on Admission?: Yes (2) Atrial flutter, paroxysmal: Presented in a flutter. She was bradycardic from such. Home atenolol held at admission. Rates are nicely controlled off any AV anthony agent today. TSH wnl. Echo with preserved EF. Cardiology consultation appreciated. Plan - observe on tele. no AV anthony agents for now. need to consider anticoagulation. Present on Admission?: Yes (3) UTI (urinary tract infection), bacterial: 01/16/19 culture with Klebsiella- sensitive to rocephin. Repeat cx from 01/20/19 also with GNR. Await final culture to see if this is klebsiella or other pathogen. No prior h/o kidney stones. Patient's son states she is incontinent and has cystocele. These are contributing to frequent UTIs. Consider urology consult post-discharge. Present on Admission?: Yes (4) Diastolic CHF, acute on chronic: Appears euvolemic today. HOLD further IV lasix. Re-eval in am. Echo results noted. Cardiology consult appreciated. Present on Admission?: Yes (5) Chronic hyponatremia: Likely multifactorial -- chronic metazolone use (uses 2x's each week), SSRI use, etc. Has been mildly low since at least 2017. BMP in am for stability. Baseline level 128-132. Present on Admission?: Yes (6) Hypomagnesemia: Resolved. Cont mag oxide supplementation BID. Present on Admission?: Yes (7) YARI (obstructive sleep apnea): Chronic, on home CPAP. She has been on same settings for long time. She wakes up with AM headaches. She could potentially need night-time O2. Would perform overnight oximetry study while here ON her CPAP the night before discharge to see if she needs nocturnal O2. Present on Admission?: Yes (8) CAD (coronary artery disease): Nonobstructive by history. Continue asa daily. (9) Pulmonary embolism: History of such. Massive PE by history - ?IVC filter placed around the time of this (was hospitalized at [facility] years ago for this). No longer on anticoagulation. Present on Admission?: No (10) Hypothyroidism (acquired): TSH wnl. Cont synthroid. Present on Admission?: Yes (11) Hypertension: Controlled. Holding atenolol due to bradycardia. Present on Admission?: Yes (12) Morbid obesity with BMI of 45.0-49.9, adult: BMI 46.7 (13) Chronic daily headache: etiology? CT head w/o pathology. Present for years - doubt temporal arteritis. Nocturnal hypoxia? Would obtain overnight oximetry study while here. Consider neuro referral after d/c. (14) DVT prophylaxis: lovenox daily son updated at bedside PTJOSE ELIAS requested Subjective pt' son who is a practicing hvac/r instructor in [place] was at bedside during the visit. he supplemented the history. patient c/o frontal headache. these are nearly daily at home and have been present for years per the son. son states mental status is improved today but not yet to baseline. he confirmed that attempts to wean his mother off zoloft have been unsuccessful in the past and requests that this be continued. he also stated that she takes ativan 1mg at bedtime and has been on this chronically. apparently the dose was increased to 1mg 2-3 weeks ago. she also takes cymbalta 60mg BID. wears CPAP at HS for YARI - does not blend in O2. she often wakes up with headaches. wears CPAP MOST nights but not every night. tele overnight - rate controlled a flutter w/ variable block. Review of Systems Constitutional: + fatigue; no fever and no anorexia Respiratory: no cough and no dyspnea Cardiovascular: no chest pain Gastrointestinal: + abdominal pain (suprapubic) and + constipation (last BM??); no nausea and no vomiting Physical Exam Constitutional: + morbidly obese and + altered mental status (mild); no acute distress and not ill appearing ENMT: external ear and nose normal, oropharynx normal Respiratory: normal respiratory effort, lungs clear to auscultation Auscultation: + diminished lung sounds (bases); no rales and no wheezes Cardiovascular: Rate/Rhythm: regular rate; + abnormal rhythm (irregular) Heart Sounds: normal S1 and normal S2; no murmur Vessels: posterior tibial pulses present and dorsalis pedis pulses present; no JVD Extremities: + edema (<1+ b/l) Gastrointestinal (Abdomen): Inspection/Auscultation: normal bowel sounds Percussion/Palpation: + abdomen tender (minimal - suprapubic) and + hernia (just above umbilicus - reducible); no guarding and no hepatosplenomegaly Psychiatric: Orientation: alert; + not oriented x 3 (slight disorientation to time; knew she was at hospital) Results & Data Vital Signs (Past 12 Hours) Vital Signs Temp Pulse Pulse Resp BP Pulse Ox 01/21/19 15:36 36.6 C 61 18 112/68 96 01/21/19 14:30 70 01/21/19 12:00 36.8 C 66 18 108/63 96 01/21/19 07:25 68 Laboratory Results Laboratory Results - last 24 hr 01/21/19 01/21/19 01/21/19 05:22 05:22 07:36 Sodium 131 L Potassium 3.8 Chloride 93 L Carbon Dioxide 29 Anion Gap 9.0 BUN 12 Creatinine 1.04 Est Cr Clr Drug Dosing 52.5 Est GFR ( Amer) 59.6 Est GFR (Non-Af Amer) 51.4 BUN/Creatinine Ratio 11.8 Glucose 126 H POC Glucose 122 H Osmolality 271 L Calcium 9.0 Magnesium 1.8 01/21/19 01/21/19 01/21/19 11:33 16:39 20:19 Sodium Potassium Chloride Carbon Dioxide Anion Gap BUN Creatinine Est Cr Clr Drug Dosing Est GFR ( Amer) Est GFR (Non-Af Amer) BUN/Creatinine Ratio Glucose POC Glucose 133 H 126 H 152 H Osmolality Calcium Magnesium Diagnostic Findings urine culture -- GNR (1) CAD (coronary artery disease) Coronary Disease-Associated Artery/Lesion type: [place] artery [place] vs. transplanted heart: [place] heart Associated angina: without angina Qualified Code(s): I25.10 - Atherosclerotic heart disease of [place] coronary artery without angina pectoris (2) Pulmonary embolism Pulmonary embolism type: unspecified Chronicity: unspecified Acute cor pulmonale presence: without acute cor pulmonale Qualified Code(s): I26.99 - Other pulmonary embolism without acute cor pulmonale (3) Hypertension Hypertension type: essential hypertension Qualified Code(s): I10 - Essential (primary) hypertension
[2019-01-21] MEDS: TRAZODONE HCL 100 MG TAB PO SCH (20:56)
[2019-01-21] MEDS: METHENAMINE HIPPURATE 1 GM TAB PO SCH (20:56)
[2019-01-21] MEDS: DULOXETINE HCL 60 MG CAP PO SCH (20:57)
[2019-01-21] MEDS: MONTELUKAST SODIUM 10 MG TABLET PO SCH (20:58)
[2019-01-21] MEDS: DONEPEZIL HCL 5 MG TAB PO SCH (20:59)
[2019-01-21] MEDS: ARTIFICIAL TEARS OPB SCH (21:00)
[2019-01-21] MEDS: LORazepam 1 MG TAB PO SCH (21:02)
[2019-01-22 05:55] LABS: Hematocrit (blood only) 33.7 % (37-47); Hemoglobin 11.8 g/dL (12.0-16.0); Mean Corpuscular Volume 86.2 fL (80-100); Mean Platelet Volume 8.7 fL (7.4-10.4); Platelet Count 257 K/uL (130-400); RDW Standard Deviation 50.3 fL (36.4-46.3); Red Blood Count 3.91 M/uL (4.2-5.4); White Blood Count 9.19 K/uL (4.8-10.8)
[2019-01-22 06:21] LABS: BUN Creatinine Ratio 12.8 (10-20); Calcium 9.2 mg/dl (8.5-10.1); Creatinine Clr Calc Pharmacy 42.4 ml/min; Est GFR (African American) 45.9; Est GFR (Non-African American) 39.6; Magnesium 1.8 mg/dl (1.8-2.4); Potassium 3.8 mmol/L (3.5-5.1)
[2019-01-22] MEDS: LEVOTHYROXINE SODIUM 125 MCG TABLET PO SCH (06:22)
[2019-01-22] MEDS: TRAMADOL HCL 50 MG TABLET PO PRN (07:44)
[2019-01-22] MEDS: POTASSIUM CHLORIDE 20 MEQ TABCR PO SCH ×2 (07:45→16:42)
[2019-01-22] MEDS: FERROUS SULFATE 325 MG TAB PO SCH (07:45)
[2019-01-22] MEDS: VITAMIN B COMPLEX TAB PO SCH (07:46)
[2019-01-22] MEDS: ASPIRIN 81 MG ECTAB PO SCH (07:46)
[2019-01-22] MEDS: MULTIVITAMIN TAB PO SCH (07:46)
[2019-01-22] MEDS: CLOPIDOGREL BISULFATE 75 MG TAB PO SCH (07:47)
[2019-01-22] MEDS: PANTOprazole 40 MG TAB PO SCH ×2 (07:47→16:44)
[2019-01-22] MEDS: MAGNESIUM OXIDE 400 MG TAB PO SCH ×2 (07:47→21:17)
[2019-01-22] MEDS: CALCIUM 600MG + VIT D 400 IU TAB PO SCH ×2 (07:47→16:43)
[2019-01-22] MEDS: GABAPENTIN 300 MG CAP PO SCH ×3 (07:47→16:43)
[2019-01-22] MEDS: SERTRALINE HCL 50 MG TABLET PO SCH (07:48)
[2019-01-22] MEDS: DULOXETINE HCL 60 MG CAP PO SCH ×2 (07:48→21:17)
[2019-01-22] MEDS: SENNA 8.6 MG TAB PO SCH (07:49)
[2019-01-22] MEDS: IPRATROPIUM BROMIDE HFA INHALER INH SCH ×4 (07:50→21:14)
[2019-01-22] MEDS: DICLOFENAC SOD 1% GEL 100 GM TUBE EXT SCH ×2 (07:50→21:26)
[2019-01-22] MEDS: FLUTICASONE PROPIONATE NA SPR 16 GM BTL SCH ×2 (07:50→21:18)
[2019-01-22] MEDS: INSULIN ASPART 100 UNITS/ML 3 ML PEN SC SCH ×4 (08:13→22:01)
--- NOTE | 2019-01-22 08:48 | Hospitalist Progress Note ---
Date of Service January 22, 2019 Assessment & Plan (1) Acute metabolic encephalopathy: suspect 2nd to UTI poa. Pseudomonas with resistance to quinolones and '[place] Infectious disease consult recommends 10-day course of cefepime mental status already improving although not back to baseline per son he was at the bedside and all questions were answered. CT head w/o acute process. would NOT restart elavil. has been on ativan, zoloft, and cymbalta for some time -- doubt these are causing confusion -- Per previous attending notes, son who is physician feels strongly that pt requires them, family request I speak to Dr. Horner for about her psychotropic medications new onset a flutter -patient has been rate controlled with no signs of exacerbation of her chronic diastolic heart failure (2) Atrial flutter, paroxysmal: Presented in a flutter. She was bradycardic from such. Home atenolol held at admission. Rates are acceptable off any AV anthony agent TSH wnl. Echo with preserved EF. Cardiology consultation need to consider anticoagulation. (3) UTI (urinary tract infection), bacterial: 01/16/19 culture with Klebsiella- sensitive to rocephin. Repeat cx from 01/20/19 also with GNR to be resistant Pseudomonas antibiotics amended 01/22 the cefepime ID recommends 10-day course. Patient's son states she is incontinent and has cystocele. These are contributing to frequent UTIs. Consider urology/gynecology consult post-discharge. (4) Diastolic CHF, acute on chronic: Appears euvolemic HOLD further IV lasix. Echo results noted. Cardiology consult (5) Chronic hyponatremia: Likely multifactorial -- chronic metazolone use (uses 2x's each week), SSRI use, etc. Has been mildly low since at least 2017 Baseline level 128-132. (6) Hypomagnesemia: Resolved.Continue mag oxide supplementation BID. (7) YARI (obstructive sleep apnea): Chronic, on home CPAP. She has been on same settings for long time. She wakes up with AM headaches. She could potentially need night-time O2. Would perform overnight oximetry study while here ON her CPAP the night before discharge to see if she needs nocturnal O2. (8) CAD (coronary artery disease): Nonobstructive by history. Continue asa daily. (9) Pulmonary embolism: History of such. Massive PE by history - ?IVC filter placed around the time of this (was hospitalized at [facility] years ago for this). No longer on anticoagulation. (10) Hypothyroidism (acquired): TSH wnl. Cont synthroid. (11) Hypertension: Controlled without medication at this time Holding atenolol due to bradycardia. (12) Morbid obesity with BMI of 45.0-49.9, adult: BMI 46.7, contributes to sleep apnea issues (13) Chronic daily headache: etiology? CT head w/o pathology. Present for years - doubt temporal arteritis. Nocturnal hypoxia? Would obtain overnight oximetry study while here. Consider neuro referral after d/c. (14) DVT prophylaxis: lovenox daily, will need transition to fromal therapeutic ac for aflutter PT,OT evals requested Subjective Patient is improving every day she is less lethargic we did find a multidrug- resistant Pseudomonas UTI present on admission is likely responsible for metabolic encephalopathy her son is present at the bedside and all questions were answered Review of Systems Review of Systems: ROS: patient is lethargic and fatigued No double vision blurry vision No problems with speech or swallowing No palpitations, chest pain or pressure chronic lower extremity edema No Wheezing or breathing issues No abdominal pain nausea vomiting diarrhea Persistent urinary changes of frequency and discomfort No focal joint pain or muscle pain No skin rashes or oral lesions No unusual bruising or bleeding No focused back pain or numbness or loss of strength No changes in memory or confusion Physical Exam Physical Exam: The patient appeared morbidly obese and minimally lethargic Vital signs as documented. Head exam is unremarkable. normocephalic, atraumatic Neck is without jugular venous distension, thyromegaly, or lymphademopathy Lungs are clear to auscultation and percussion. But decreased at the bases Cardiac exam reveals regular but rate controlled Abdominal exam reveals normal bowel sounds, no masses, no organomegaly Extremities are moderate edematous and she is lower leg wraps in place that she brought from home Neurologic exam is A&Ox3, this report is improved from yesterday no focal deficits, strength is equal bilateral globally reduced Psychologically seems depressed Skin is warm Dry without bruises or lesions however lower leg wraps were not removed during my evaluation based on patient request Results & Data Vital Signs (Past 12 Hours) Vital Signs Temp Pulse Resp BP Pulse Ox 01/22/19 06:42 36.9 C 93 H 18 115/73 95 05/13/19 03:18 36.5 C 92 H 20 120/69 94 01/21/19 23:02 36.6 C 87 18 123/77 97 (1) CAD (coronary artery disease) Associated angina: without angina Coronary Disease-Associated Artery/Lesion type: [place] artery [place] vs. transplanted heart: [place] heart Qualified Code(s): I25.10 - Atherosclerotic heart disease of [place] coronary artery without angina pectoris (2) Pulmonary embolism Acute cor pulmonale presence: without acute cor pulmonale Chronicity: unspecified Pulmonary embolism type: unspecified Qualified Code(s): I26.99 - Other pulmonary embolism without acute cor pulmonale (3) Hypertension Hypertension type: essential hypertension Qualified Code(s): I10 - Essential (primary) hypertension
--- NOTE | 2019-01-22 11:16 | Cardiology Progress Note ---
Date of Service January 22, 2019 Assessment & Plan (1) Diastolic CHF, acute on chronic: Lung examination is normal. She is not appear to have any dyspnea at rest. She has some dyspnea with ambulation but is likely due to deconditioning rather than heart failure. She takes some metolazone periodically. I think her volume status can be monitored at her nursing facility and diuretics administered on a p.r.n. basis. (2) Atrial flutter, paroxysmal: Without any beta-moira therapy heart rate seems to be in the 90s. He most of the time she is sedentary. Even with ambulation her heart rate did not seem to go up dramatically. I think we can continue to monitor her heart rate on an outpatient basis. I do not think she requires any beta-moira currently. Heart rates were higher institution perhaps of atenolol 25 milligrams daily may be adequate to provide good rate control without significant bradycardia noted on presentation. I think her aspirin and Plavix can be stopped in favor of full anticoagulation either with Xarelto or Eliquis. Subjective The patient reportedly ambulated 4 times yesterday around the [place]omez. She used a walker and had some arm discomfort associated with poor adjustment of the walker itself. She has not had symptoms of chest pain. She did have an element of mild dyspnea at the end of her ambulation. She also had an element of fatigue. She did not report dizziness. She has not been aware of palpitations. Her appetite has returned. Review of Systems Review of Systems: Per HPI Physical Exam Physical Exam: She is alert and oriented x3. Mood affect appear normal. She answered all questions appropriately. HEENT: Sclerae are anicteric. Pupils are equal and reactive to light and accommodation. Extraocular movements were intact. Neuro: Cranial nerves intact Lungs: Lungs are clear to auscultation bilaterally. There are no rales wheezes or rhonchi. She has normal respiratory effort without use of accessory muscles. There is normal pulmonary excursion. Cardiac: The rhythm was regular. Abdomen: Obese Results & Data Vital Signs (Past 12 Hours) Vital Signs Temp Pulse Pulse Pulse Resp BP BP 01/22/19 10:52 36.5 C 94 H 19 108/65 01/22/19 07:25 91 H 01/22/19 06:42 36.9 C 93 H 18 115/73 01/22/19 03:18 36.5 C 92 H 20 120/69 Pulse Ox 01/22/19 10:52 96 01/22/19 07:25 01/22/19 06:42 95 01/22/19 03:18 94 Laboratory Results Abnormal Lab Results 01/21/19 01/21/19 01/21/19 11:33 16:39 20:19 WBC RBC Hgb Hct MCV MCH MCHC RDW Std Deviation RDW Coeff of Chalino Plt Count MPV Sodium Potassium Chloride Carbon Dioxide Anion Gap BUN Creatinine Est Cr Clr Drug Dosing Est GFR ( Amer) Est GFR (Non-Af Amer) BUN/Creatinine Ratio Glucose POC Glucose 133 H 126 H 152 H Calcium Magnesium 01/22/19 01/22/19 01/22/19 05:30 05:30 07:28 WBC 9.19 RBC 3.91 L Hgb 11.8 L Hct 33.7 L MCV 86.2 MCH 30.2 MCHC 35.0 RDW Std Deviation 50.3 H RDW Coeff of Chalino 16.0 H Plt Count 257 MPV 8.7 Sodium 132 L Potassium 3.8 Chloride 92 L Carbon Dioxide 32 Anion Gap 7.0 BUN 17 Creatinine 1.29 H Est Cr Clr Drug Dosing 42.4 Est GFR ( Amer) 45.9 Est GFR (Non-Af Amer) 39.6 BUN/Creatinine Ratio 12.8 Glucose 130 H POC Glucose 144 H Calcium 9.2 Magnesium 1.8 ECG Additional Comments: Atrial flutter with heart rate around 90-95
[2019-01-22] MEDS ORDERED: CEFEPIME 2,000 MG in SYRINGE 7.5 ML IV SCH (11:30)
[2019-01-22] MEDS: cefTRIAXone SODIUM 2,000 MG in DEXTROSE 5% 50 ML IV SCH (11:37)
--- NOTE | 2019-01-22 15:38 | Infectious Disease Consult ---
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 Isolate only intermediately sensitive to quinolones, so IV antibiotics are really only good alternative. Would recommend 10-day course of cefepime. Will discuss with all involved. Will follow. (2) Pseudomonas aeruginosa infection: History of Present Illness Reason for Consultation: Penem resistant Pseudomonas Attending Physician: Mat Fischer MD History of Present Illness Female with history of dementia, COPD, hypertension, hypothyroidism, recently treated for Klebsiella urinary tract infection with nitrofurantoin, who was admitted to the hospital on the with several day history of worsening mental status. She is now been found to have positive urine culture for a imipenem resistant Pseudomonas. She has now been started on cefepime which she is tolerating without apparent difficulty. Has indwelling Bernal catheter at present. Currently afebrile. Blood cultures have been negative. Allergies Allergy/AdvReac Type Severity Reaction Status Date / Time KODAK Inhibitors Allergy Unknown Unknown Verified 12/16/18 02:05 benson Allergy Unknown Verified 12/16/18 02:05 grass pollen Allergy Unknown Verified 12/16/18 02:05 perfume Allergy Unknown Verified 12/16/18 02:05 Home Medications Home Medications Medication Instructions Recorded Confirmed Type Myrbetriq 50 mg PO QAM 05/16/18 01/20/19 History Restasis 1 drp OPHTHALMIC (EYE) BID 05/16/18 01/20/19 History acetaminophen [Tylenol Extra 1,000 mg PO Q8 PRN 05/16/18 01/20/19 History Strength] atenolol 50 mg PO DAILY 05/16/18 01/20/19 History clopidogrel [Plavix] 75 mg PO DAILY 05/16/18 01/20/19 History dextromethorphan polistirex 10 ml PO Q12H PRN 05/16/18 01/20/19 History [Delsym 12 hour] donepezil 5 mg PO HS 05/16/18 01/20/19 History duloxetine 60 mg PO BID 05/16/18 01/20/19 History guaifenesin [Mucinex] 600 mg PO Q12H PRN 05/16/18 01/20/19 History levothyroxine 250 mcg PO QAM 05/16/18 01/20/19 History loperamide 1 mg PO DIRECTED PRN MDD 3 per 05/16/18 01/20/19 History day magnesium hydroxide [Milk of 2 - 4 tbsp PO DAILY PRN 05/16/18 01/20/19 History Magnesia] methenamine hippurate 1 g PO QPM 05/16/18 01/20/19 History metolazone 2.5 mg PO 2XWK 05/16/18 01/20/19 History mometasone [Nasonex] 1 spray INTRANASAL BID 05/16/18 01/20/19 History montelukast [Singulair] 10 mg PO HS 05/16/18 01/20/19 History nystatin 1 applic TOPICAL BID 05/16/18 01/20/19 History polyethylene glycol 3350 [Miralax] 17 g PO DAILY PRN 05/16/18 01/20/19 History potassium chloride 60 meq PO BIDM 05/16/18 01/20/19 History ranitidine HCl 150 mg PO BIDM 05/16/18 01/20/19 History sertraline 25 mg PO QAM 05/16/18 01/20/19 History spironolactone 25 mg PO DAILY 05/16/18 01/20/19 History tamsulosin [Flomax] 0.4 mg PO DAILY 05/16/18 01/20/19 History trazodone 200 mg PO HS 05/16/18 01/20/19 History vitamin B complex 1 tab PO QAM 05/16/18 01/20/19 History Caltrate 600 + D 1 tab PO BIDM 09/14/18 01/20/19 History Systane (PF) 1 drp OPHTHALMIC (EYE) TID 09/14/18 01/20/19 History albuterol sulfate [ProAir HFA] 2 puff INHALATION QID PRN 09/14/18 01/20/19 History aspirin 81 mg PO DAILY 09/14/18 01/20/19 History conjugated estrogens 1 applic TOPICAL 3XWK 09/14/18 01/20/19 History gabapentin 300 mg PO TIDM 09/14/18 01/20/19 History glucosamine sulfate [Glucosamine] 1,500 mg PO QAM 09/14/18 01/20/19 History ketoconazole [Nizoral] 1 applic TOPICAL DAILY 09/14/18 01/20/19 History metolazone 2.5 mg PO DAILY PRN 09/14/18 01/20/19 History multivitamin 1 tab PO QAM 09/14/18 01/20/19 History Calmoseptine 1 applic TOPICAL TID PRN 12/12/18 01/20/19 History Reguloid 1 tbsp PO BID 12/12/18 01/20/19 History Systane Gel 1 drp OPB HS 12/12/18 01/20/19 History ketoconazole 1 applic TOPICAL DAILY PRN 12/12/18 01/20/19 History lorazepam 1 mg PO HS 12/12/18 01/20/19 History magnesium sulfate (bulk) [Epsom 1 applic TOPICAL DAILY 12/12/18 01/20/19 History Salt] nystatin 1 applic TOPICAL BID PRN 12/12/18 01/20/19 History Atrovent HFA 2 puff INHALATION QID #0 g 12/14/18 01/20/19 Rx diclofenac sodium [Voltaren] 1 applic EXT BID #1 g 12/22/18 01/20/19 Rx tramadol 50 mg PO Q6H PRN #15 tab 12/23/18 01/20/19 Rx amitriptyline 25 mg PO DAILY 01/20/19 01/20/19 History ferrous sulfate [Iron (ferrous 1 tab PO DIRECTED 01/20/19 01/20/19 History sulfate)] pantoprazole 40 mg PO BID 01/20/19 01/20/19 History Patient History Medical History Chronic hyponatremia (Chronic) Diastolic CHF, acute on chronic (Acute) Atrial flutter, paroxysmal (Acute) Acute metabolic encephalopathy (Acute) Hypomagnesemia (Acute) YARI (obstructive sleep apnea) (Chronic) Hyponatremia Diastolic CHF, chronic CAD (coronary artery disease) Chronic interstitial cystitis Sepsis (Acute) Confusion (Acute) UTI (urinary tract infection) (Acute) Diabetes (Chronic) TIA (transient ischemic attack) (Resolved) Pulmonary embolism (Resolved) UTI (urinary tract infection) (Resolved) Cardiac valve prolapse (Chronic) Balance disorder Basal pneumonia of both lungs (Acute) Diabetic peripheral neuropathy associated with type 2 diabetes mellitus Foot deformity Foot pain Loss of sensation Family History Other Family history non-contributory Social History Preferred Language: [place] Communication Ability: Effective Opthalmic Tech Required: No Beliefs That Will Affect Care: None marital status: / Current Living Situation: Personal Care Facility Current Living Situation Comment: [facility] current occupational status: retired Other Information That Helps Us Care for You: No Feels Safe at Home: Yes Safety Concerns: Feels Safe At This Time Smoking Status: Former smoker Do You Dip or Chew Tobacco: No Second Hand Exposure: No Hx Alcohol Use: No Hx Substance Use: No Review of Systems Review of Systems: All systems reviewed & are unremarkable except as noted in HPI & below Physical Exam Constitutional: WD/WN, vitals as above comfortable; no acute distress Eyes: PERRL, conjunctivae normal, anicteric sclerae ENMT: external ear and nose normal, oropharynx normal Neck: trachea midline, no thyromegaly neck nontender Respiratory: normal respiratory effort, lungs clear to auscultation normal percussion; does not use accessory muscles Cardiovascular: Rate/Rhythm: regular rate and regular rhythm Heart Sounds: normal S1 and normal S2; no gallop, no murmur and no cardiac rub Vessels: normal peripheral pulses; no JVD Gastrointestinal (Abdomen): normal bowel sounds, soft, nontender, no hepatosplenomegaly Musculoskeletal: no cyanosis or clubbing, extremities motor strength 5/5 Spine: thoracic spine normal to inspection and lumbar spine normal to inspection; no cervical spinal tenderness Skin: no rashes, warm and dry normal turgor; no lesions Neurologic: patellar DTR's 2+ bilat, sensation intact no focal motor deficits Psychiatric: A+Ox3, euthymic affect Orientation: cooperative Lymphatic: no cervical or axillary lymphadenopathy no inguinal lymphadenopathy Results & Data Vital Signs (Past 12 Hours) Vital Signs Temp Pulse Pulse Pulse Resp BP BP 01/22/19 14:30 105 H 01/22/19 10:52 36.5 C 94 H 19 108/65 01/22/19 07:25 91 H 01/22/19 06:42 36.9 C 93 H 18 115/73 Pulse Ox 01/22/19 14:30 01/22/19 10:52 96 01/22/19 07:25 01/22/19 06:42 95 Laboratory Results Short CBC 01/22/19 Range/Units 05:30 WBC 9.19 (4.8-10.8) K/uL Hgb 11.8 L (12.0-16.0) g/dL Hct 33.7 L (37-47) % Plt Count 257 (130-400) K/uL BMP 01/22/19 05:30 Sodium 132 L Potassium 3.8 Chloride 92 L Carbon Dioxide 32 BUN 17 Creatinine 1.29 H Glucose 130 H Calcium 9.2 Diagnostic Findings Microbiology 01/20/19 08:50 Urine,Straight Cath Urine Culture - Final Pseudomonas aeruginosa XR chest 1V portable CLINICAL HISTORY: confusion mental status change COMPARISON STUDY: 12/11/2017 FINDINGS: Mild stable cardiomegaly. Slight increase in prominence of pulmonary vasculature. Diaphragms are smooth. IMPRESSION: Mild congestive heart failure. The above report was generated using voice recognition software. It may contain grammatical, syntax or spelling errors.
[2019-01-22] MEDS: ENOXAPARIN INJ 40 MG/0.4 ML SYR SQ SCH (16:42)
[2019-01-22] MEDS: DONEPEZIL HCL 5 MG TAB PO SCH (21:16)
[2019-01-22] MEDS: METHENAMINE HIPPURATE 1 GM TAB PO SCH (21:16)
[2019-01-22] MEDS: MONTELUKAST SODIUM 10 MG TABLET PO SCH (21:17)
[2019-01-22] MEDS: ARTIFICIAL TEARS OPB SCH (21:19)
[2019-01-22] MEDS: TRAZODONE HCL 100 MG TAB PO SCH (21:19)
[2019-01-22] MEDS: LORazepam 1 MG TAB PO SCH (21:21)
[2019-01-23] MEDS: LEVOTHYROXINE SODIUM 125 MCG TABLET PO SCH (06:14)
[2019-01-23 06:38] LABS: BUN Creatinine Ratio 17.2 (10-20); Calcium 8.6 mg/dl (8.5-10.1); Creatinine Clr Calc Pharmacy 50.1 ml/min; Est GFR (African American) 56.3; Est GFR (Non-African American) 48.6; Magnesium 1.9 mg/dl (1.8-2.4); Potassium 4.1 mmol/L (3.5-5.1)
[2019-01-23] MEDS: TRAMADOL HCL 50 MG TABLET PO PRN ×2 (07:48→16:43)
[2019-01-23] MEDS: MAGNESIUM OXIDE 400 MG TAB PO SCH ×2 (07:50→21:08)
[2019-01-23] MEDS: MULTIVITAMIN TAB PO SCH (07:50)
[2019-01-23] MEDS: PANTOprazole 40 MG TAB PO SCH ×2 (07:50→16:30)
[2019-01-23] MEDS: VITAMIN B COMPLEX TAB PO SCH (07:50)
[2019-01-23] MEDS: DULOXETINE HCL 60 MG CAP PO SCH ×2 (07:50→21:08)
[2019-01-23] MEDS: SERTRALINE HCL 50 MG TABLET PO SCH (07:51)
[2019-01-23] MEDS: SENNA 8.6 MG TAB PO SCH (07:51)
[2019-01-23] MEDS: CALCIUM 600MG + VIT D 400 IU TAB PO SCH ×2 (07:52→16:30)
[2019-01-23] MEDS: ASPIRIN 81 MG ECTAB PO SCH (07:52)
[2019-01-23] MEDS: CLOPIDOGREL BISULFATE 75 MG TAB PO SCH (07:52)
[2019-01-23] MEDS: DICLOFENAC SOD 1% GEL 100 GM TUBE EXT SCH ×2 (07:52→21:14)
[2019-01-23] MEDS: POTASSIUM CHLORIDE 20 MEQ TABCR PO SCH ×2 (07:52→10:01)
[2019-01-23] MEDS: IPRATROPIUM BROMIDE HFA INHALER INH SCH ×4 (07:53→21:14)
[2019-01-23] MEDS: INSULIN ASPART 100 UNITS/ML 3 ML PEN SC SCH ×4 (07:56→21:11)
[2019-01-23] MEDS: FLUTICASONE PROPIONATE NA SPR 16 GM BTL SCH ×2 (07:57→21:07)
[2019-01-23] MEDS: GABAPENTIN 300 MG CAP PO SCH ×3 (08:02→16:30)
[2019-01-23] MEDS ORDERED: FUROSEMIDE 40 MG TAB PO ONE (10:08)
[2019-01-23] MEDS ORDERED: OXYCODONE HCL IR 5 MG TAB (IMMEDIATE RELEASE) PO PRN (10:23)
[2019-01-23] MEDS ORDERED: CELECOXIB 100 MG CAP PO SCH (10:30)
[2019-01-23] MEDS: ACETAMINOPHEN 325 MG TAB PO PRN (11:54)
[2019-01-23] MEDS: CEFEPIME 1,000 MG in SYRINGE 0 ML IV SCH ×2 (11:55→12:28)
--- NOTE | 2019-01-23 15:34 | Infectious Disease Progress Nt ---
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 Isolate only intermediately sensitive to quinolones, so IV antibiotics are really only good alternative. Would recommend 10-day course of cefepime. Will follow. (2) Pseudomonas aeruginosa infection: Subjective Patient is here to follow-up for pseudomonal urinary tract infection. Appears to be tolerating cefepime without apparent difficulty. Remains afebrile. No new complaints. White count has improved to 9100. Blood cultures remain negative. Review of Systems Review of Systems: All systems reviewed & are unremarkable except as noted in HPI & below Physical Exam Constitutional: WD/WN, vitals as above comfortable; no acute distress Eyes: PERRL, conjunctivae normal, anicteric sclerae ENMT: external ear and nose normal, oropharynx normal Neck: trachea midline, no thyromegaly neck nontender Respiratory: normal respiratory effort, lungs clear to auscultation normal percussion; no respiratory distress Cardiovascular: Rate/Rhythm: regular rate and regular rhythm Heart Sounds: normal S1 and normal S2; no gallop, no murmur and no cardiac rub Gastrointestinal (Abdomen): normal bowel sounds, soft, nontender, no hepatosplenomegaly Musculoskeletal: no cyanosis or clubbing, extremities motor strength 5/5 No spinal tenderness, no joint swelling or erythema Skin: no rashes, warm and dry no lesions Neurologic: moves all extremities and awake; no focal motor deficits Motor/Sensory: no sensory deficit Psychiatric: A+Ox3, euthymic affect Lymphatic: no cervical or axillary lymphadenopathy no inguinal lymphadenopathy Results & Data Vital Signs (Past 12 Hours) Vital Signs Temp Pulse Resp BP BP Pulse Ox 01/23/19 13:45 36.7 C 93 H 16 84/57 L 93 01/23/19 08:20 36.3 C L 94 H 18 119/80 96 01/23/19 03:22 36.8 C 85 16 108/72 93 Laboratory Results [facility] 01/23/19 05:34 Sodium 132 L Potassium 4.1 Chloride 96 L Carbon Dioxide 29 BUN 19 H Creatinine 1.09 Glucose 119 H Calcium 8.6 Diagnostic Findings Microbiology 01/20/19 08:50 Urine,Straight Cath Urine Culture - Final Pseudomonas aeruginosa
[2019-01-23] MEDS: ENOXAPARIN INJ 40 MG/0.4 ML SYR SQ SCH (16:29)
--- NOTE | 2019-01-23 18:04 | Hospitalist Progress Note ---
Date of Service January 23, 2019 Assessment & Plan (1) Acute metabolic encephalopathy: suspect 2nd to UTI poa. Pseudomonas with resistance to quinolones and [facility] Infect[facility] disease consult recommends 10-day course of cefepime, renal dose is once a day mental status continually improving although not back to baseline per son he was at the bedside and all questions were answered. CT head w/o acute process. would NOT restart elavil. has been on ativan, zoloft, and cymbalta for some time -- doubt these are causing confusion -- Per previous attending notes, son who is physician feels strongly that pt requires them, family request I speak to Dr. Horner for about her psychotropic medications new onset a flutter -patient has been rate controlled with no signs of exacerbation of her chronic diastolic heart failure (2) Atrial flutter, paroxysmal: Presented in a flutter. She was bradycardic from such. Home atenolol held at admission. Rates are controlled off any AV anthony agent TSH wnl. Echo with preserved EF. Cardiology consultation need to consider anticoagulation manager intermediate at discharge. (3) UTI (urinary tract infection), bacterial: 01/16/19 culture with Klebsiella- sensitive to rocephin. Repeat cx from 01/20/19 also with GNR to be resistant Pseudomonas antibiotics amended 01/22 the cefepime ID recommends 10-day course. Patient's son states she is incontinent and has cystocele. These are contributing to frequent UTIs. Consider urology/gynecology consult post-discharge. (4) Diastolic CHF, acute on chronic: Appears euvolemic HOLD further IV lasix. Echo results with preserved EF (5) Chronic hyponatremia: Likely multifactorial -- chronic metazolone use (uses 2x's each week), SSRI use, etc. Has been mildly low since at least 2017 Baseline level 128-132. (6) Hypomagnesemia: Resolved.Continue mag oxide supplementation BID. (7) YARI (obstructive sleep apnea): Chronic, on home CPAP. She has been on same settings for long time. She wakes up with AM headaches. She could potentially need night-time O2. Would perform overnight oximetry study while here ON her CPAP the night before discharge to see if she needs nocturnal O2. (8) CAD (coronary artery disease): Nonobstructive by history. Continue asa daily. (9) Pulmonary embolism: History of such. Massive PE by history - ?IVC filter placed around the time of this (was hospitalized at [facility] years ago for this). No longer on anticoagulation. (10) Hypothyroidism (acquired): TSH wnl. Cont synthroid. (11) Hypertension: Controlled without medication at this time Holding atenolol due to bradycardia. (12) Morbid obesity with BMI of 45.0-49.9, adult: BMI 46.7, contributes to sleep apnea issues (13) Chronic daily headache: no complaints of headache today CT head w/o pathology. Present for years - doubt temporal arteritis. Consider neuro referral after d/c. (14) DVT prophylaxis: lovenox daily, will need transition to formal therapeutic ac for aflutter PT,OT evals requested Subjective Patient's biggest concern remains her bilateral shoulder pain which is chronic. Otherwise she is feeling much better after were treating her Pseudomonas UTI present on admission. She does have some elevation of her potassium to 4.1 from her baseline and she is on significant supplementation this will be reduced. Physical therapy and occupational therapy evaluation be undertaken Review of Systems Review of Systems: ROS: Patient looks uncomfortable today complaining of pain in her shoulders No double vision blurry vision No problems with speech or swallowing No palpitations, chest pain or pressure does have chronic lower extremity edema No Wheezing or breathing issues No abdominal pain nausea vomiting diarrhea changes in appetite or weight No burning urine urine frequency or changes in color Bilateral shoulder pain is chronic worse with movement Also discoloration of her lower legs which is also chronic No unusual bruising or bleeding No focused back pain or numbness or loss of strength No new changes in memory or confusion she does have some baseline memory changes Results & Data Vital Signs (Past 12 Hours) Vital Signs Temp Pulse Resp BP BP Pulse Ox 01/23/19 15:19 36.7 C 94 H 16 121/73 95 01/23/19 13:45 36.7 C 93 H 16 84/57 L 93 01/23/19 08:20 36.3 C L 94 H 18 119/80 96 (1) CAD (coronary artery disease) Associated angina: without angina Coronary Disease-Associated Artery/Lesion type: [place] artery [place] vs. transplanted heart: [place] heart Qualified Code(s): I25.10 - Atherosclerotic heart disease of [place] coronary artery without angina pectoris (2) Pulmonary embolism Acute cor pulmonale presence: without acute cor pulmonale Chronicity: unspecified Pulmonary embolism type: unspecified Qualified Code(s): I26.99 - Other pulmonary embolism without acute cor pulmonale (3) Hypertension Hypertension type: essential hypertension Qualified Code(s): I10 - Essential (primary) hypertension
--- NOTE | 2019-01-23 19:17 | Cardiology Progress Note ---
Date of Service January 23, 2019 Assessment & Plan (1) Diastolic CHF, acute on chronic: Lung examination is normal. She is not appear to have any dyspnea at rest. She has some dyspnea with ambulation but is likely due to deconditioning rather than heart failure. She takes some metolazone periodically. I think her volume status can be monitored at her nursing facility and diuretics administered on a p.r.n. basis. (2) Atrial flutter, paroxysmal: Without any beta-moira therapy heart rate seems to be in the 90s. She has some higher rates with exertion. This could be contibuting to her dyspnea. SHe had very low heart rates on 50mg of atenolol at admission I think we can try 25mg of atenolol and monitor her response. I will stop her aspirin and plavix and start her on Eliquis Subjective This morning the patient had some left arm pain and a headache. She reports being ambulatory yesterday with her walker. She did report some dyspnea with ambulation. Review of Systems Review of Systems: Per HPI Physical Exam Physical Exam: Alert and oriented. She answered all questions appropriately Lungs: Apices clear Cardiac: Irregular. No murmur Extremities: Minimal edema. Results & Data Vital Signs (Past 12 Hours) Vital Signs Temp Pulse Resp BP BP Pulse Ox 01/23/19 19:01 36.5 C 92 H 18 107/72 98 01/23/19 15:19 36.7 C 94 H 16 121/73 95 01/23/19 13:45 36.7 C 93 H 16 84/57 L 93 01/23/19 08:20 36.3 C L 94 H 18 119/80 96 Laboratory Results Abnormal Lab Results 01/22/19 01/23/19 01/23/19 20:45 05:34 07:29 Sodium 132 L Potassium 4.1 Chloride 96 L Carbon Dioxide 29 Anion Gap 7.0 BUN 19 H Creatinine 1.09 Est Cr Clr Drug Dosing 50.1 Est GFR ( Amer) 56.3 Est GFR (Non-Af Amer) 48.6 BUN/Creatinine Ratio 17.2 Glucose 119 H POC Glucose 135 H 137 H Calcium 8.6 Magnesium 1.9 01/23/19 01/23/19 11:33 16:22 Sodium Potassium Chloride Carbon Dioxide Anion Gap BUN Creatinine Est Cr Clr Drug Dosing Est GFR ( Amer) Est GFR (Non-Af Amer) BUN/Creatinine Ratio Glucose POC Glucose 232 H 127 H Calcium Magnesium ECG Additional Comments: Atrial flutter
[2019-01-23] MEDS: ARTIFICIAL TEARS OPB SCH (21:07)
[2019-01-23] MEDS: TRAZODONE HCL 100 MG TAB PO SCH (21:08)
[2019-01-23] MEDS: DONEPEZIL HCL 5 MG TAB PO SCH (21:08)
[2019-01-23] MEDS: MONTELUKAST SODIUM 10 MG TABLET PO SCH (21:08)
[2019-01-23] MEDS: METHENAMINE HIPPURATE 1 GM TAB PO SCH (21:08)
[2019-01-23] MEDS: LORazepam 1 MG TAB PO SCH (21:08)
[2019-01-24] MEDS: LEVOTHYROXINE SODIUM 125 MCG TABLET PO SCH (06:04)
[2019-01-24 06:58] LABS: Creatinine Clr Calc Pharmacy 51.9 ml/min; Est GFR (African American) 58.2; Est GFR (Non-African American) 50.3
[2019-01-24] MEDS: TRAMADOL HCL 50 MG TABLET PO PRN (08:20)
[2019-01-24] MEDS: SENNA 8.6 MG TAB PO SCH (08:21)
[2019-01-24] MEDS: PANTOprazole 40 MG TAB PO SCH (08:21)
[2019-01-24] MEDS: MULTIVITAMIN TAB PO SCH (08:21)
[2019-01-24] MEDS: GABAPENTIN 300 MG CAP PO SCH ×2 (08:21→11:45)
[2019-01-24] MEDS: VITAMIN B COMPLEX TAB PO SCH (08:21)
[2019-01-24] MEDS: DULOXETINE HCL 60 MG CAP PO SCH (08:22)
[2019-01-24] MEDS: MAGNESIUM OXIDE 400 MG TAB PO SCH (08:22)
[2019-01-24] MEDS: CALCIUM 600MG + VIT D 400 IU TAB PO SCH (08:22)
[2019-01-24] MEDS: FERROUS SULFATE 325 MG TAB PO SCH (08:22)
[2019-01-24] MEDS: FLUTICASONE PROPIONATE NA SPR 16 GM BTL SCH (08:23)
[2019-01-24] MEDS: DICLOFENAC SOD 1% GEL 100 GM TUBE EXT SCH (08:24)
[2019-01-24] MEDS: IPRATROPIUM BROMIDE HFA INHALER INH SCH ×2 (08:24→11:47)
[2019-01-24] MEDS: SERTRALINE HCL 50 MG TABLET PO SCH (08:24)
[2019-01-24] MEDS: INSULIN ASPART 100 UNITS/ML 3 ML PEN SC SCH ×2 (08:27→12:47)
[2019-01-24] MEDS ORDERED: FUROSEMIDE 40 MG TAB PO SCH (09:00)
[2019-01-24] MEDS ORDERED: APIXABAN 5 MG TABLET PO SCH (09:00)
[2019-01-24] MEDS ORDERED: POTASSIUM CHLORIDE 20 MEQ TABCR PO SCH (09:00)
[2019-01-24] MEDS: CEFEPIME 1,000 MG in SYRINGE 0 ML IV SCH (11:47)
--- NOTE | 2019-01-24 15:25 | Discharge Summary ---
Date of Service January 24, 2019 Admission HPI Per Admitting Provider 78-year-old female with a history of dementia and multiple medical problems who presents with altered mental status. She was recently diagnosed with a Klebsiella UTI several days ago and has been on nitrofurantoin. She was sent to the ED today due to persistent altered mental status. At the time of my examination she is alert and oriented to name place and month. She has what appears to be chronic hyponatremia with sodium level 128. She has atrial flutter with moderate bradycardia but normal blood pressure. She has a history of atrial fibrillation in the past but no previous history of atrial flutter to my knowledge. Her magnesium level is 1.5 and chest x-ray reveals mild CHF. Serum osmolarity and BNP are pending. Head CT scan is negative. Rocephin has been administered in the ED along with intravenous Lasix. Bernal catheter has been placed. Atenolol will remain on hold due to bradycardia with atrial flutter. Cardiology consultation has been requested. She will be admitted to a telemetry bed. 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 Multiple medications will be discontinued including amitriptyline, duloxetine, sertraline, Spironolactone, and Flomax. Principal Diagnosis drug resistant pseudomonas uti poa metabolic encephalopahty aflutter Discharge Exam The patient appeared well nourished and normally developed. Vital signs as documented. Head exam is unremarkable. normocephalic, atraumatic Lungs are clear to auscultation and percussion. Cardiac exam reveals Rhythm is regular. tana Abdominal exam reveals normal bowel sounds, no masses, no organomegaly Extremities are mildly edematous Discharge Data Allergies Allergy/AdvReac Type Severity Reaction Status Date / Time KODAK Inhibitors Allergy Unknown Unknown Verified 12/16/18 02:05 benson Allergy Unknown Verified 12/16/18 02:05 grass pollen Allergy Unknown Verified 12/16/18 02:05 perfume Allergy Unknown Verified 12/16/18 02:05 Consultations 01/20/19 10:47 ED Decision to Admit Stat 01/20/19 12:45 Consult Cardiology Routine 01/22/19 11:22 Consult Infectious Diseases Routine Ordered Studies 01/20/19 08:45 CT head/brain wo con Stat Hospital Course (1) Acute metabolic encephalopathy: suspect 2nd to UTI poa. Pseudomonas with resistance to quinolones and '[place] Infectious disease consult recommends 10-day course of cefepime, renal dose is once a day, ultrasound guided periperhal iv is placed for med delivery at [facility] head w/o acute process. would NOT restart elavil. has been on ativan, zoloft, and cymbalta for some time -- doubt these are ca using confusion - new onset a flutter -patient has been rate controlled with no signs of exacerbation of her chronic diastolic heart failure (2) Atrial flutter, paroxysmal: Presented in a flutter. She was bradycardic from such. Home atenolol held at admission cardiology recommend starting anticoagulation and atenolol at 25 mg. TSH wnl. Echo with preserved EF. pt was seen by Dr Lilly during this stay (3) UTI (urinary tract infection), bacterial: 01/16/19 culture with Klebsiella- sensitive to rocephin. Repeat cx from 01/20/19 also with GNR to be resistant Pseudomonas antibiotics amended 01/22 the cefepime ID recommends 10-day course. Patient's son states she is incontinent and has cystocele. These are contributing to frequent UTIs. Consider urology/gynecology consult post-discharge. (4) Diastolic CHF, acute on chronic: Appears euvolemic Echo results with preserved EF (5) Chronic hyponatremia: Likely multifactorial -- Has been mildly low since at least 2017 Baseline level 128-132 recommend weekly labs and weight tracking for diuretic adjustment (6) Hypomagnesemia: Resolved.Continue mag oxide supplementation BID. (7) YARI (obstructive sleep apnea): Chronic, on home CPAP. She has been on same settings for long time. She wakes up with AM headaches but these have resolved with medical management and medication reduciton (8) CAD (coronary artery disease): Nonobstructive by history. Continue asa daily. (9) Pulmonary embolism: History of such. Massive PE by history - ?IVC filter placed around the time of this (was hospitalized at [facility] years ago for this). now on eliquis (10) Hypothyroidism (acquired): TSH wnl. Cont synthroid. (11) Hypertension: Controlled without medication at this time low dose atenolol (12) Morbid obesity with BMI of 45.0-49.9, adult: BMI 46.7, contributes to sleep apnea issues (13) Chronic daily headache: no complaints of headache today CT head w/o pathology. Present for years - doubt temporal arteritis. Consider neuro referral after d/c. Total Time Total Time Spent Total Time Spent (In Minutes): greater than 30 minutes were required to prepare discharge Discharge Plan Discharge Items Patient Disposition: Personal [facility] Reason For Visit: CHF, UTI, HYPONATREMIA, ENCEPHALOPATHY, ATRIAL FIB Discharge Diagnosis: confusion from urinary tract infection atrial flutter( rapid heart rhythm) Discharge Goals: Decrease discomfort Activity: Resume your previous activity Non-emergency contact: Primary Care Provider Call non-emergency contact if: you have any medication questions Follow-up/Referrals: [facility] [Primary Care Provider] - Diet: Carb Consistent or DM2 Addtl Provider Instructions: please follow up with primary care provider in one week and recheck urine specimen once done with antibiotics Prescriptions: New cefepime 1 gram recon soln 1 gm IV DAILY Qty: 11 RF: 0 Eliquis 5 mg Tablet 5 mg PO BID Qty: 60 RF: 0 Continued donepezil 5 mg Tablet 5 mg PO HS RF: 0 sertraline 25 mg Tablet 25 mg PO QAM RF: 0 duloxetine 60 mg Capsule,Delayed Release(Dr/Ec) 60 mg PO BID RF: 0 dextromethorphan polistirex [Delsym 12 hour] 30 mg/5 mL Suspension,Extended Rel 12 Hr 10 ml PO Q12H PRN (Reason: Cough) RF: 0 nystatin 100,000 unit/gram Powder 1 applic TOPICAL BID RF: 0 magnesium hydroxide [Milk of Magnesia] 400 mg/5 mL Suspension 2 - 4 tbsp PO DAILY PRN (Reason: Constipation) RF: 0 polyethylene glycol 3350 [Miralax] 17 gram Powder In Packet 17 g PO DAILY PRN (Reason: Constipation) RF: 0 acetaminophen [Tylenol Extra Strength] 500 mg Tablet 1,000 mg PO Q8 PRN (Reason: Pain) RF: 0 Restasis 0.05 % Dropperette 1 drp OPHTHALMIC (EYE) BID RF: 0 guaifenesin [Mucinex] 600 mg Tablet Extended Release 12hr 600 mg PO Q12H PRN (Reason: Congestion) RF: 0 loperamide 2 mg Capsule 1 mg PO DIRECTED MDD 3 per day PRN (Reason: Diarrhea) RF: 0 methenamine hippurate 1 gram Tablet 1 g PO QPM RF: 0 tamsulosin [Flomax] 0.4 mg Capsule 0.4 mg PO DAILY RF: 0 levothyroxine 125 mcg Tablet 250 mcg PO QAM RF: 0 vitamin B complex Tablet 1 tab PO QAM RF: 0 ranitidine HCl 150 mg Tablet 150 mg PO BIDM RF: 0 trazodone 100 mg Tablet 200 mg PO HS RF: 0 mometasone [Nasonex] 50 mcg/actuation Dubberly,Non-Aerosol 1 spray INTRANASAL BID RF: 0 montelukast [Singulair] 10 mg Tablet 10 mg PO HS RF: 0 multivitamin Tablet 1 tab PO QAM RF: 0 metolazone 2.5 mg tablet 2.5 mg PO DAILY PRN (Reason: Weight Gain) RF: 0 ketoconazole [Nizoral] 2 % Shampoo 1 applic topical DAILY RF: 0 glucosamine sulfate [Glucosamine] 500 mg Tablet 1,500 mg PO QAM RF: 0 conjugated estrogens 0.625 mg/gram cream 1 applic topical 3XWK RF: 0 gabapentin 300 mg capsule 300 mg PO TIDM RF: 0 albuterol sulfate [ProAir HFA] 90 mcg/actuation Hfa Aerosol Inhaler 2 puff INHALATION QID PRN (Reason: Shortness Of Breath Or Wheezing) RF: 0 Systane (PF) 0.4-0.3 % Dropperette 1 drp OPHTHALMIC (EYE) TID RF: 0 Caltrate 600 + D 600 mg (1,500 mg)-800 unit Tablet,Chewable 1 tab PO BIDM RF: 0 lorazepam 1 mg Tablet 1 mg PO HS RF: 0 Reguloid Powder 1 tbsp PO BID RF: 0 nystatin 100,000 unit/gram Cream 1 applic TOPICAL BID PRN (Reason: excoriation) RF: 0 magnesium sulfate (bulk) [Epsom Salt] 100 % Crystals 1 applic TOPICAL DAILY RF: 0 ketoconazole 2 % Cream 1 applic TOPICAL DAILY PRN (Reason: flares) RF: 0 Systane Gel 0.3 % Gel 1 drp OPB HS RF: 0 Calmoseptine 0.44-20.6 % Ointment 1 applic TOPICAL TID PRN (Reason: skin breakdown prevention) RF: 0 Atrovent HFA 17 mcg/actuation Hfa Aerosol Inhaler 2 puff INHALATION QID Qty: 0 RF: 0 diclofenac sodium [Voltaren] 1 % Gel 1 applic EXT BID Qty: 1 RF: 0 tramadol 50 mg Tablet 50 mg PO Q6H PRN (Reason: Pain) Qty: 15 RF: 0 pantoprazole 40 mg Tablet,Delayed Release (Dr/Ec) 40 mg PO BID RF: 0 ferrous sulfate [Iron (ferrous sulfate)] 325 mg (65 mg iron) Tablet 1 tab PO DIRECTED RF: 0 Changed potassium chloride 20 mEq Tablet,Er Particles/Crystals 20 meq PO BIDM Qty: 0 RF: 0 atenolol 50 mg Tablet 25 mg PO DAILY Qty: 30 RF: 0 Discontinued spironolactone 25 mg Tablet 25 mg PO DAILY RF: 0 Myrbetriq 50 mg Tablet Extended Release 24 Hr 50 mg PO QAM RF: 0 metolazone 2.5 mg Tablet 2.5 mg PO 2XWK RF: 0 clopidogrel [Plavix] 75 mg Tablet 75 mg PO DAILY RF: 0 aspirin 81 mg Tablet,Delayed Release (Dr/Ec) 81 mg PO DAILY RF: 0 amitriptyline 25 mg tablet 25 mg PO DAILY RF: 0 Stand-Alone Forms: [facility] Discharge Orders: Discharge Order (Routine); Ordered 01/24/19 Ordered By: Mat Fischer Admission Data Admit Date/Time: 01/20/19 11:36 Attending Provider: Mat Fischer Admit Provider: Floyd Vences Primary Care Provider: Juan [place],[facility] Other Providers: Rober Lilly ; Floyd Vences ; Eric Davis ; Rubén Zambrano Service: Telemetry Other Interventions: Discharge Summary Assessment (RN) Last Done: 01/24/19 14:34 DC Date/Time DO NOT enter until pt leaves facility: 01/24/19 16:14
--- NOTE | 2019-01-24 15:42 | Infectious Disease Progress Nt ---
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 Isolate only intermediately sensitive to quinolones, so IV antibiotics are really only good alternative. Would recommend 10-day course of cefepime. Will follow. (2) Pseudomonas aeruginosa infection: Subjective Patient seen in follow-up for pseudomonal urinary tract infection. No urinary complaints at present. Had some arm pain and dyspnea, now better. Tolerating antibiotic without apparent difficulty. Review of Systems Review of Systems: All systems reviewed & are unremarkable except as noted in HPI & below Physical Exam Constitutional: WD/WN, vitals as above comfortable; no acute distress Eyes: PERRL, conjunctivae normal, anicteric sclerae ENMT: external ear and nose normal, oropharynx normal Neck: trachea midline, no thyromegaly neck nontender Respiratory: normal respiratory effort, lungs clear to auscultation normal percussion; no respiratory distress and does not use accessory muscles Cardiovascular: Rate/Rhythm: regular rate and regular rhythm Heart Sounds: normal S1 and normal S2; no gallop, no murmur and no cardiac rub Vessels: normal peripheral pulses; no JVD Gastrointestinal (Abdomen): normal bowel sounds, soft, nontender, no hepatosplenomegaly Musculoskeletal: no cyanosis or clubbing, extremities motor strength 5/5 Spine: thoracic spine normal to inspection and lumbar spine normal to inspection; no cervical spinal tenderness Skin: no rashes, warm and dry normal turgor; no lesions Neurologic: patellar DTR's 2+ bilat, sensation intact moves all extremities and awake; no focal motor deficits Motor/Sensory: no sensory deficit Psychiatric: A+Ox3, euthymic affect Orientation: cooperative Lymphatic: no cervical or axillary lymphadenopathy no inguinal lymphadenopathy Results & Data Vital Signs (Past 12 Hours) Vital Signs Temp Pulse Pulse Pulse Resp BP BP 01/24/19 14:34 36.4 C L 93 H 94 H 93 H 18 145/78 H 119/80 01/24/19 11:48 36.4 C L 94 H 18 145/78 H 01/24/19 07:05 36.4 C L 91 H 19 102/51 L Pulse Ox 01/24/19 14:34 96 01/24/19 11:48 96 01/24/19 07:05 94 Laboratory Results [facility] 01/24/19 05:40 Creatinine 1.06 Diagnostic Findings Microbiology 01/20/19 08:50 Urine,Straight Cath Urine Culture - Final Pseudomonas aeruginosa
== END 2019-01-24 16:14 | disposition home health service (06) | DRG 689 ==
LOC: ED 08:34 → SUATTDRO 11:36 → 2S 11:36
DX: N39.0 Urinary tract infection, site not specified; Z86.711 Personal history of pulmonary embolism; J44.9 Chronic obstructive pulmonary disease, unspecified; E83.42 Hypomagnesemia; E66.01 Morbid (severe) obesity due to excess calories; Z68.42 Body mass index [BMI] 45.0-49.9, adult; Z87.891 Personal history of nicotine dependence; I50.33 Acute on chronic diastolic (congestive) heart failure; R32 Unspecified urinary incontinence; Z86.73 Personal history of transient ischemic attack (TIA), and cerebral infarction without residual deficits; I48.0 Paroxysmal atrial fibrillation; K21.9 Gastro-esophageal reflux disease without esophagitis; I11.0 Hypertensive heart disease with heart failure; E03.9 Hypothyroidism, unspecified; G93.41 Metabolic encephalopathy; I25.10 Atherosclerotic heart disease of native coronary artery without angina pectoris; B96.5 Pseudomonas (aeruginosa) (mallei) (pseudomallei) as the cause of diseases classified elsewhere; I48.92 Unspecified atrial flutter; G47.33 Obstructive sleep apnea (adult) (pediatric)

== ENCOUNTER 2021-03-11 12:39 | Inpatient (IN) ==
--- NOTE | 2021-03-11 13:58 | Emergency Department Note ---
Impression & Plan Pneumonia, Urinary tract infection, Acute hyperglycemia ED Provider Note NAME: DAYNA AYALA AGE: 80 SEX: F : 1940 ARRIVES VIA: Ambulance INFORMANT: Patient, ED PROVIDER(S): Aston Jenkins DO CHIEF COMPLAINT: Shortness of breath HPI: The patient is an 80-year-old female who presented to the emergency department for an evaluation of shortness of breath. The patient lives at [facility]. She states that she has had lower extremity swelling and redness. She is also noticed to have a cough which is productive. She had an outpatient chest x-ray many days ago which showed an abnormality. The patient was sent to the emergency department for further evaluation. She was noted to have hyperglycemia. She was also noted to have hypoxia prior to arrival. The patient herself states that she is noticed worsening shortness of breath with exertion. She does take oral anticoagulation states that she has been compliant with all of her outpatient medications. She has an indwelling Bernal catheter. She is noticed some cloudiness to her urine but this is not atypical for her. She denies having any chest pain or abdominal pain. She has not received any medications for fever. ROS: See above HPI for pertinent positives & negatives. A total of 10 systems reviewed and were otherwise negative. PAST MEDICAL HISTORY: See Below PAST SURGICAL HISTORY: See Below FAMILY HISTORY: See Below SOCIAL HISTORY: See Below HOME MEDICATIONS: See Below ALLERGIES: See Below VITALS: See Below PHYSICAL EXAMINATION: GENERAL: Patient is awake alert in no acute distress patient is resting comfortably and showing no signs of anxiety EYES: The conjunctivae are clear. The pupils are round and reactive. EARS, NOSE, MOUTH AND THROAT: The nose is without any evidence of any deformity. NECK: The neck is nontender and supple. RESPIRATORY: Diminished breath sounds are noted throughout. There is mild tachypnea and conversational dyspnea. CARDIOVASCULAR: Regular rate and rhythm noted there no murmurs rubs or gallops normal S1 normal S2. GASTROINTESTINAL: The abdomen is soft. Abdomen is nontender. MUSCULOSKELETAL/EXTREMITIES: There is no evidence of gross deformity full range of motion is noted in the hips and shoulders. SKIN: Skin was warm and dry. Pedal edema was noted bilaterally. Venous stasis changes were also noted. NEUROLOGIC: Patient is awake alert and oriented x3. MEDICAL DECISION MAKING: The patient is an 80-year-old female who presented to the emergency department for an evaluation of difficulty breathing. The patient's been having symptoms over the last few days. She did have a chest x-ray which showed possible pneumonia at the personal [facility]. She was sent to the emergency department for further evaluation. I discussed the patient's laboratory and radiographic studies with her. She was also found to have elevated blood sugar. She was treated with IV fluids IV insulin and IV antibiotics. I discussed patient's condition with the on-call [facility] hospitalist group. They have agreed to evaluate the patient in the emergency department for further management and disposition. The patient also has bilateral lower extremity redness I think this is secondary to venous stasis changes. The patient does have a chronic indwelling Bernal. Triage Nursing notes reviewed. Prior medical records reviewed Vital Signs: reviewed and remarkable for elevated blood pressure tachycardia and low-grade fever. Differential diagnosis: Reactive airway disease, pneumonia, pneumothorax, COPD, CHF, infections, cardiac ischemia, pulmonary embolism, musculoskeletal, gastrointestinal, as well as other pathologies. ER treatment provided: See below Diagnostics interpreted by me: ECG: EKG was obtained in the emergency department. My interpretation is sinus rhythm at 98 bpm. First-degree AV block was noted. There was no ectopy. This was compared to a tracing from September 202020. No significant changes were noted. Cardiac Monitoring: An order was placed for continuous cardiac monitoring. The monitor shows a rate of 110 bpm with sinus tachycardia rhythm. Laboratory studies: As stated above and show below. Imaging studies: See below Consultation(s): I discussed this case with Dr. Weber who is on-call for the [facility] hospitalist group. Past Med/Surg History Medical History Acute metabolic encephalopathy Allergic rhinitis Anemia Arthritis Asthma Atherosclerotic heart disease of [place] coronary artery without angina pectoris Atrial flutter, paroxysmal Balance disorder Basal pneumonia of both lungs BMI 45.0-49.9, adult Bowel incontinence Bulging lumbar disc CAD (coronary artery disease) Cardiac valve prolapse Cellulitis of lower leg Chronic constipation Chronic hyponatremia Chronic interstitial cystitis Chronic vulvitis Confusion Cystocele, midline Depression with anxiety Diabetes Diabetes with neurologic complications Diabetic peripheral neuropathy Diabetic peripheral neuropathy associated with type 2 diabetes mellitus Diastolic CHF, acute on chronic Dry eye syndrome of both lacrimal glands Edema Foot deformity Foot deformity, bilateral Foot pain Gait disturbance Gastroparesis Hematuria, microscopic History of intestinal obstruction History of rotator cuff tear Hyperlipidemia Hypomagnesemia Hyponatremia Hypothyroidism Incomplete bladder emptying Incontinence Insomnia Irritable bowel syndrome Knee pain, bilateral Loss of sensation Lymphedema Memory loss Migraine headache YARI (obstructive sleep apnea) Peripheral vascular disease Pessary maintenance Post-menopausal atrophic vaginitis Pulmonary embolism Rectocele Rotator cuff tendonitis Sepsis Skin ulcer Squamous cell carcinoma of skin TIA (transient ischemic attack) Type 2 diabetes mellitus with other circulatory complications Urge and stress incontinence UTI (urinary tract infection) UTI (urinary tract infection) Venous insufficiency Wears dentures Surgical History Cataract H/O oral surgery History of knee replacement History of mandibular surgery repair of mandible with endosteal implant History of surgery lysis of intestinal adhesions History of total hysterectomy Family History Father Diabetes Prostate cancer Colon cancer Colorectal cancer Mother Diabetes Heart disease Brother Acute myocardial infarction Family/Other Cancer Colorectal cancer sibling Hypertension Denies family history of Ovarian cancer Crohn's disease Breast cancer Social History Smoking Status: Never smoker Tobacco Type: Cigarettes Second Hand Exposure: No; Hx Alcohol Use: No Hx Substance Use: No Preferred Language: Faroese Communication Ability: Effective Visual Impairment: No Limitations Hearing Ability: Normal [employer] Required: No Beliefs That Will Affect Care: None marital status: / Current Living Situation: Personal Care Facility Current Living Situation Comment: [facility]term current occupational status: retired How many Children do You have: 2 Feels Safe at Home: Yes Childhood Exposure to Second-Hand Smoke: No Dental Care, Regularly: Yes Physical Activity Frequency: Does not Exercise Seatbelt Use: always Sunscreen Use: Yes Assistive Devices: None and Walker Allergies Allergies Allergy/AdvReac Type Severity Reaction Status Date / Time KODAK Inhibitors Allergy Unknown Unknown Verified 03/11/21 15:21 benson Allergy Unknown Unknown Verified 03/11/21 15:21 grass pollen Allergy Unknown Unknown Verified 03/11/21 15:21 miconazole [From Monistat 3] Allergy Unknown Unknown Verified 03/11/21 15:21 perfume Allergy Unknown Unknown Verified 03/11/21 15:21 skin cleanser combination Allergy Unknown Unknown Verified 03/11/21 15:21 no.17 [From Monistat 3] quetiapine [From Seroquel] AdvReac Intermediate Night Verified 03/11/21 15:21 terrors Home Meds Home Medications Medication Instructions Recorded Confirmed Restasis 1 drp OPB BID 05/16/18 03/11/21 acetaminophen [Tylenol Extra 1,000 mg PO Q8 PRN 05/16/18 03/11/21 Strength] donepezil 5 mg PO HS 05/16/18 03/11/21 duloxetine 60 mg PO BID 05/16/18 03/11/21 guaifenesin [Mucinex] 600 mg PO Q12H PRN 05/16/18 03/11/21 polyethylene glycol 3350 [Miralax] 17 g PO DAILY PRN 05/16/18 03/11/21 Systane Gel 1 drp OPB HS 12/12/18 03/11/21 ferrous sulfate [Iron (ferrous 1 tab PO 3XWK 01/20/19 03/11/21 sulfate)] melatonin 10 mg capsule 10 mg PO HS 04/22/20 03/11/21 ketoconazole 1 ea TOPICAL 2XWK 07/06/20 03/11/21 lorazepam 0.5 mg PO QDL 07/06/20 03/11/21 peg 400-propylene glycol [Systane 1 drp OPHTHALMIC (EYE) TID 07/06/20 03/11/21 Ultra] mirtazapine 45 mg PO HS 09/20/20 03/11/21 triamcinolone acetonide 1 applic TOPICAL BID PRN 09/20/20 03/11/21 vitamin B complex 1 tab PO DAILY 09/20/20 03/11/21 diphenhydramine HCl 25 mg capsule 25 mg PO TID PRN cap 11/19/20 03/11/21 amitriptyline 25 mg PO QAM 03/11/21 03/11/21 amitriptyline 50 mg PO QPM 03/11/21 03/11/21 calcium carbonate-vitamin D3 1 tab PO BID 03/11/21 03/11/21 [Calcium + D] cetirizine [Zyrtec] 10 mg PO DAILY 03/11/21 03/11/21 diclofenac sodium 2 g TOPICAL QID PRN 03/11/21 03/11/21 doxepin 10 mg PO DAILY 03/11/21 03/11/21 glucosamine-chondroitin 1,500 tab PO QAM 03/11/21 03/11/21 haloperidol [Haldol] 5 mg PO DAILY 03/11/21 03/11/21 ipratropium bromide [Atrovent HFA] 2 puff INHALATION QID PRN 03/11/21 03/11/21 loperamide [Imodium A-D] 1 mg PO DAILY PRN 03/11/21 03/11/21 lorazepam 1 mg PO HS 03/11/21 03/11/21 magnesium hydroxide [Milk of 15 - 30 ml PO DAILY PRN 03/11/21 03/11/21 Magnesia] minocycline 100 mg PO BID 03/11/21 03/11/21 multivitamin 1 tab PO QAM 03/11/21 03/11/21 pantoprazole 40 mg PO QAM 03/11/21 03/11/21 potassium chloride 40 meq PO BID 03/11/21 03/11/21 sertraline 100 mg PO QAM 03/11/21 03/11/21 Previous Rx's Medication Instructions Recorded methenamine hippurate 1 gram tablet 1 g PO QPM #90 tab 03/12/20 pen needle, diabetic, safety 30 #200 ea 05/06/20 gauge x 1/3" conjugated estrogens 0.625 mg/gram 1 applic TOPICAL 3XWK #30 gm 06/27/20 vaginal cream nystatin 100,000 unit/gram topical 1 applic TOPICAL BID #60 gm 08/04/20 powder tamsulosin 0.4 mg capsule 0.4 mg PO HS #90 cap 08/11/20 levothyroxine 125 mcg tablet 250 mcg PO QAM #180 tab 08/12/20 albuterol sulfate 90 mcg/actuation 2 puff INHALATION Q4 PRN #18 g 09/29/20 aerosol inhaler atenolol 25 mg tablet 25 mg PO DAILY #90 tab 09/29/20 nystatin-triamcinolone 100,000 1 applic TOP TID #30 g 10/07/20 unit/gram-0.1 % topical ointment blood sugar diagnostic #180 ea 11/10/20 famotidine 20 mg tablet 20 mg PO BID #180 tab 11/25/20 insulin NPH-regular 70-30 U-100 See Rx Instructions SQ TIDM #15 ml 12/15/20 insulin 100 unit/mL subcutaneous pen tramadol 50 mg tablet 50 mg PO Q12H PRN #60 tab 12/15/20 bumetanide 1 mg tablet 1 mg PO DAILY #90 tab 12/17/20 apixaban 5 mg tablet 5 mg PO BID #180 tab 01/08/21 lancets 30 gauge #200 ea 02/23/21 montelukast 10 mg tablet 10 mg PO QPM #90 tab 02/23/21 gabapentin 300 mg capsule 300 mg PO TID #90 cap 03/02/21 mirabegron 50 mg tablet,extended 50 mg PO DAILY #90 tab 03/02/21 release 24 hr Results & Data (ED) Vital Signs Vital Signs - 24 hr 03/11/21 12:57 03/11/21 13:04 03/11/21 13:07 Temperature 37.6 C H Temperature Source Oral Pulse Rate 108 H Pulse Rate [Apical] Pulse Rate from SpO2 Sensor Respiratory Rate 22 Respiratory Effort / Characteristics Blood Pressure 120/101 H Blood Pressure [Left Arm] Blood Pressure Mean 107 Blood Pressure Mean [Left Arm] Pulse Oximetry 94 93 93 Oxygen Delivery Method Room Air Room Air Sepsis Recent Fever Within 48 Hours No Sepsis New/Unexplained Change in Mental Status N/A Sepsis Action Taken by Nursing No Action Required 03/11/21 13:49 03/11/21 14:00 03/11/21 14:20 Temperature Temperature Source Pulse Rate 89 108 H Pulse Rate [Apical] Pulse Rate from SpO2 Sensor 101 H 103 H Respiratory Rate 23 22 Respiratory Effort / Characteristics Short of Breath Blood Pressure 130/94 Blood Pressure [Left Arm] Blood Pressure Mean 106 Blood Pressure Mean [Left Arm] Pulse Oximetry 93 92 95 Oxygen Delivery Method Sepsis Recent Fever Within 48 Hours Sepsis New/Unexplained Change in Mental Status Sepsis Action Taken by Nursing 03/11/21 14:30 03/11/21 14:40 03/11/21 14:50 Temperature Temperature Source Pulse Rate 110 H 104 H 88 Pulse Rate [Apical] Pulse Rate from SpO2 Sensor 103 H 98 H 102 H Respiratory Rate 23 22 22 Respiratory Effort / Characteristics Blood Pressure Blood Pressure [Left Arm] Blood Pressure Mean Blood Pressure Mean [Left Arm] Pulse Oximetry 93 96 97 Oxygen Delivery Method Sepsis Recent Fever Within 48 Hours Sepsis New/Unexplained Change in Mental Status Sepsis Action Taken by Nursing 03/11/21 15:00 03/11/21 15:10 03/11/21 15:20 Temperature Temperature Source Pulse Rate 104 H 88 90 Pulse Rate [Apical] Pulse Rate from SpO2 Sensor 89 95 H Respiratory Rate 23 24 22 Respiratory Effort / Characteristics Blood Pressure 147/94 H Blood Pressure [Left Arm] Blood Pressure Mean 111 Blood Pressure Mean [Left Arm] Pulse Oximetry 96 96 Oxygen Delivery Method Sepsis Recent Fever Within 48 Hours Sepsis New/Unexplained Change in Mental Status Sepsis Action Taken by Nursing 03/11/21 15:30 03/11/21 15:31 03/11/21 15:40 Temperature Temperature Source Pulse Rate 105 H 104 H 96 H Pulse Rate [Apical] Pulse Rate from SpO2 Sensor 121 H 94 H Respiratory Rate 21 22 23 Respiratory Effort / Characteristics Blood Pressure 134/84 Blood Pressure [Left Arm] Blood Pressure Mean 100 Blood Pressure Mean [Left Arm] Pulse Oximetry 97 96 Oxygen Delivery Method Sepsis Recent Fever Within 48 Hours Sepsis New/Unexplained Change in Mental Status Sepsis Action Taken by Nursing 03/11/21 15:50 03/11/21 16:00 03/11/21 16:10 Temperature Temperature Source Pulse Rate 91 H 94 H 106 H Pulse Rate [Apical] Pulse Rate from SpO2 Sensor 96 H 92 H 96 H Respiratory Rate 17 24 24 Respiratory Effort / Characteristics Blood Pressure Blood Pressure [Left Arm] Blood Pressure Mean Blood Pressure Mean [Left Arm] Pulse Oximetry 96 97 96 Oxygen Delivery Method Sepsis Recent Fever Within 48 Hours Sepsis New/Unexplained Change in Mental Status Sepsis Action Taken by Nursing 03/11/21 16:20 03/11/21 16:30 03/11/21 16:31 Temperature Temperature Source Pulse Rate 88 90 99 H Pulse Rate [Apical] Pulse Rate from SpO2 Sensor 97 H 103 H 96 H Respiratory Rate 17 21 21 Respiratory Effort / Characteristics Blood Pressure 180/102 H Blood Pressure [Left Arm] Blood Pressure Mean 128 Blood Pressure Mean [Left Arm] Pulse Oximetry 95 94 98 Oxygen Delivery Method Sepsis Recent Fever Within 48 Hours Sepsis New/Unexplained Change in Mental Status Sepsis Action Taken by Nursing 03/11/21 16:40 03/11/21 16:45 03/11/21 16:50 Temperature Temperature Source Pulse Rate 105 H 107 H 111 H Pulse Rate [Apical] Pulse Rate from SpO2 Sensor 103 H 95 H 96 H Respiratory Rate 19 21 18 Respiratory Effort / Characteristics Blood Pressure 156/84 H Blood Pressure [Left Arm] Blood Pressure Mean 108 Blood Pressure Mean [Left Arm] Pulse Oximetry 96 96 96 Oxygen Delivery Method Sepsis Recent Fever Within 48 Hours Sepsis New/Unexplained Change in Mental Status Sepsis Action Taken by Nursing 03/11/21 17:00 03/11/21 17:10 03/11/21 17:20 Temperature Temperature Source Pulse Rate 87 89 88 Pulse Rate [Apical] Pulse Rate from SpO2 Sensor 91 H 103 H 95 H Respiratory Rate 22 19 23 Respiratory Effort / Characteristics Blood Pressure Blood Pressure [Left Arm] Blood Pressure Mean Blood Pressure Mean [Left Arm] Pulse Oximetry 96 92 95 Oxygen Delivery Method Sepsis Recent Fever Within 48 Hours Sepsis New/Unexplained Change in Mental Status Sepsis Action Taken by Nursing 03/11/21 17:30 03/11/21 18:00 Temperature Temperature Source Pulse Rate 95 H Pulse Rate [Apical] 107 H Pulse Rate from SpO2 Sensor 100 H Respiratory Rate 17 18 Respiratory Effort / Characteristics Blood Pressure Blood Pressure [Left Arm] 157/99 H Blood Pressure Mean Blood Pressure Mean [Left Arm] 118 Pulse Oximetry 93 96 Oxygen Delivery Method Room Air Sepsis Recent Fever Within 48 Hours Sepsis New/Unexplained Change in Mental Status Sepsis Action Taken by Detention Medications Current Medication List: was personally reviewed by me Laboratory Data Attestation: I reviewed the patient's lab results. Result diagrams: 03/11/21 14:29 03/11/21 14:29 Lab Results 03/11/21 03/11/21 03/11/21 Range/Units 12:55 13:57 13:57 WBC (4.8-10.8) K/uL RBC (4.2-5.4) M/uL Hgb (12.0-16.0) g/dL Hct (37-47) % MCV (80-100) fL MCH (25-34) pg MCHC (32-36) g/dL RDW Std Deviation (36.4-46.3) fL RDW Coeff of Chalino (11.5-14.5) % Plt Count (130-400) K/uL MPV (7.4-10.4) fL Immature Gran % (Auto) % Neut % (Auto) % Lymph % (Auto) % Ashley % (Auto) % Eos % (Auto) % Baso % (Auto) % Neut # (Auto) (1.4-6.5) K/uL Lymph # (Auto) (1.2-3.4) K/uL Ashley # (Auto) (0.11-0.59) K/uL Eos # (Auto) (0-0.5) K/uL Baso # (Auto) (0-0.2) K/uL Immature Gran # (Auto) (0.00-0.02) K/uL ESR (0-30) mm/hr PT (9.0-12.0) Seconds INR (0.9-1.1) APTT (21.0-31.0) Seconds PTT Ratio VBG pH (7.36-7.41) VBG pCO2 (38-50) mmHg VBG pO2 mmHg VBG HCO3 mmol/L VBG O2 Saturation % VBG Base Excess mEq/L Barometric Pressure mm/Hg Sodium (136-145) mmol/L Potassium (3.5-5.1) mmol/L Chloride (98-107) mmol/L Carbon Dioxide (21-32) mmol/L Anion Gap (3-11) BUN (7-18) mg/dl Creatinine (0.6-1.2) mg/dl Est Cr Clr Drug Dosing ml/min Est GFR ( Amer) ml/min Est GFR (Non-Af Amer) ml/min BUN/Creatinine Ratio (10-20) Glucose (70-99) mg/dl Lactate (0.4-2.0) mmol/L Calcium (8.5-10.1) mg/dl Magnesium (1.8-2.4) mg/dl Total Bilirubin (0.2-1) mg/dl AST (15-37) U/L ALT (12-78) U/L Alkaline Phosphatase (45-117) U/L Troponin I (0-0.045) ng/ml C-Reactive Protein (0-0.29) mg/dl NT-Pro-B Natriuret Pep (0-1800) pg/ml Total Protein (6.4-8.2) gm/dl Albumin (3.4-5.0) gm/dl Globulin (2.5-4.0) gm/dl Albumin/Globulin Ratio (0.9-2) Beta-Hydroxybutyric Acd (0.2-2.81) mg/dl Procalcitonin (0-0.5) ng/ml Urine Color Yellow Urine Appearance Turbid A (Clear) Urine pH 8.0 H (4.5-7.5) Ur Specific Cades 1.009 (1.000-1.030) Urine Protein Negative (Negative) Urine Glucose (UA) 2+ H (Negative) Urine Ketones Negative (Negative) Urine Blood Trace H (Negative) Urine Nitrite Positive A (Negative) Urine Bilirubin Negative (Negative) Urine Urobilinogen Negative (Negative) Ur Leukocyte Esterase Trace H (Negative) Urine WBC (Auto) >30 H (0-5) /hpf Urine RBC (Auto) 0-4 (0-4) /hpf U Hyaline Cast (Auto) 1-5 (0-5) /lpf U Epithel Cells (Auto) 10-20 H (0-5) /lpf Urine Bacteria (Auto) 3+ H (Negative) Urine Yeast Not Reportable COVID-19 Eval Order Covid19 at [facility] SARS-CoV-2 (PCR) NEGATIVE (Negative) 03/11/21 03/11/21 03/11/21 Range/Units 14:29 14:29 14:29 WBC 14.18 H (4.8-10.8) K/uL RBC 4.01 L (4.2-5.4) M/uL Hgb 12.0 (12.0-16.0) g/dL Hct 35.9 L (37-47) % MCV 89.5 (80-100) fL MCH 29.9 (25-34) pg MCHC 33.4 (32-36) g/dL RDW Std Deviation 47.8 H (36.4-46.3) fL RDW Coeff of Chalino 14.7 H (11.5-14.5) % Plt Count 202 (130-400) K/uL MPV 9.9 (7.4-10.4) fL Immature Gran % (Auto) 0.6 % Neut % (Auto) 80.3 % Lymph % (Auto) 5.6 % Ashley % (Auto) 6.1 % Eos % (Auto) 7.3 % Baso % (Auto) 0.1 % Neut # (Auto) 11.39 H (1.4-6.5) K/uL Lymph # (Auto) 0.79 L (1.2-3.4) K/uL Ashley # (Auto) 0.86 H (0.11-0.59) K/uL Eos # (Auto) 1.04 H (0-0.5) K/uL Baso # (Auto) 0.01 (0-0.2) K/uL Immature Gran # (Auto) 0.09 H (0.00-0.02) K/uL ESR (0-30) mm/hr PT 10.6 (9.0-12.0) Seconds INR 1.0 (0.9-1.1) APTT 33.1 H (21.0-31.0) Seconds PTT Ratio 1.3 VBG pH (7.36-7.41) VBG pCO2 (38-50) mmHg VBG pO2 mmHg VBG HCO3 mmol/L VBG O2 Saturation % VBG Base Excess mEq/L Barometric Pressure mm/Hg Sodium 127 L (136-145) mmol/L Potassium 4.3 (3.5-5.1) mmol/L Chloride 90 L (98-107) mmol/L Carbon Dioxide 34 H (21-32) mmol/L Anion Gap 3.0 (3-11) BUN 10 (7-18) mg/dl Creatinine 0.90 (0.6-1.2) mg/dl Est Cr Clr Drug Dosing 64.5 ml/min Est GFR ( Amer) 70.0 ml/min Est GFR (Non-Af Amer) 60.4 ml/min BUN/Creatinine Ratio 11.6 (10-20) Glucose 306 H* (70-99) mg/dl Lactate (0.4-2.0) mmol/L Calcium 8.5 (8.5-10.1) mg/dl Magnesium 1.8 (1.8-2.4) mg/dl Total Bilirubin 0.4 (0.2-1) mg/dl AST 19 (15-37) U/L ALT 29 (12-78) U/L Alkaline Phosphatase 114 (45-117) U/L Troponin I < 0.015 (0-0.045) ng/ml C-Reactive Protein 12.00 H (0-0.29) mg/dl NT-Pro-B Natriuret Pep (0-1800) pg/ml Total Protein 7.2 (6.4-8.2) gm/dl Albumin 2.9 L (3.4-5.0) gm/dl Globulin 4.3 H (2.5-4.0) gm/dl Albumin/Globulin Ratio 0.7 L (0.9-2) Beta-Hydroxybutyric Acd (0.2-2.81) mg/dl Procalcitonin (0-0.5) ng/ml Urine Color Urine Appearance (Clear) Urine pH (4.5-7.5) Ur Specific Cades (1.000-1.030) Urine Protein (Negative) Urine Glucose (UA) (Negative) Urine Ketones (Negative) Urine Blood (Negative) Urine Nitrite (Negative) Urine Bilirubin (Negative) Urine Urobilinogen (Negative) Ur Leukocyte Esterase (Negative) Urine WBC (Auto) (0-5) /hpf Urine RBC (Auto) (0-4) /hpf U Hyaline Cast (Auto) (0-5) /lpf U Epithel Cells (Auto) (0-5) /lpf Urine Bacteria (Auto) (Negative) Urine Yeast COVID-19 Eval Order SARS-CoV-2 (PCR) (Negative) 03/11/21 03/11/21 03/11/21 Range/Units 14:29 14:29 14:29 WBC (4.8-10.8) K/uL RBC (4.2-5.4) M/uL Hgb (12.0-16.0) g/dL Hct (37-47) % MCV (80-100) fL MCH (25-34) pg MCHC (32-36) g/dL RDW Std Deviation (36.4-46.3) fL RDW Coeff of Chalino (11.5-14.5) % Plt Count (130-400) K/uL MPV (7.4-10.4) fL Immature Gran % (Auto) % Neut % (Auto) % Lymph % (Auto) % Ashley % (Auto) % Eos % (Auto) % Baso % (Auto) % Neut # (Auto) (1.4-6.5) K/uL Lymph # (Auto) (1.2-3.4) K/uL Ashley # (Auto) (0.11-0.59) K/uL Eos # (Auto) (0-0.5) K/uL Baso # (Auto) (0-0.2) K/uL Immature Gran # (Auto) (0.00-0.02) K/uL ESR 81 H (0-30) mm/hr PT (9.0-12.0) Seconds INR (0.9-1.1) APTT (21.0-31.0) Seconds PTT Ratio VBG pH 7.39 (7.36-7.41) VBG pCO2 57 H (38-50) mmHg VBG pO2 27 mmHg VBG HCO3 34 mmol/L VBG O2 Saturation < 60.0 % VBG Base Excess 7.1 mEq/L Barometric Pressure 731.5 mm/Hg Sodium (136-145) mmol/L Potassium (3.5-5.1) mmol/L Chloride (98-107) mmol/L Carbon Dioxide (21-32) mmol/L Anion Gap (3-11) BUN (7-18) mg/dl Creatinine (0.6-1.2) mg/dl Est Cr Clr Drug Dosing ml/min Est GFR ( Amer) ml/min Est GFR (Non-Af Amer) ml/min BUN/Creatinine Ratio (10-20) Glucose (70-99) mg/dl Lactate (0.4-2.0) mmol/L Calcium (8.5-10.1) mg/dl Magnesium (1.8-2.4) mg/dl Total Bilirubin (0.2-1) mg/dl AST (15-37) U/L ALT (12-78) U/L Alkaline Phosphatase (45-117) U/L Troponin I (0-0.045) ng/ml C-Reactive Protein (0-0.29) mg/dl NT-Pro-B Natriuret Pep 187 (0-1800) pg/ml Total Protein (6.4-8.2) gm/dl Albumin (3.4-5.0) gm/dl Globulin (2.5-4.0) gm/dl Albumin/Globulin Ratio (0.9-2) Beta-Hydroxybutyric Acd (0.2-2.81) mg/dl Procalcitonin (0-0.5) ng/ml Urine Color Urine Appearance (Clear) Urine pH (4.5-7.5) Ur Specific Cades (1.000-1.030) Urine Protein (Negative) Urine Glucose (UA) (Negative) Urine Ketones (Negative) Urine Blood (Negative) Urine Nitrite (Negative) Urine Bilirubin (Negative) Urine Urobilinogen (Negative) Ur Leukocyte Esterase (Negative) Urine WBC (Auto) (0-5) /hpf Urine RBC (Auto) (0-4) /hpf U Hyaline Cast (Auto) (0-5) /lpf U Epithel Cells (Auto) (0-5) /lpf Urine Bacteria (Auto) (Negative) Urine Yeast COVID-19 Eval Order SARS-CoV-2 (PCR) (Negative) 03/11/21 03/11/21 Range/Units 14:33 16:36 WBC (4.8-10.8) K/uL RBC (4.2-5.4) M/uL Hgb (12.0-16.0) g/dL Hct (37-47) % MCV (80-100) fL MCH (25-34) pg MCHC (32-36) g/dL RDW Std Deviation (36.4-46.3) fL RDW Coeff of Chalino (11.5-14.5) % Plt Count (130-400) K/uL MPV (7.4-10.4) fL Immature Gran % (Auto) % Neut % (Auto) % Lymph % (Auto) % Ashley % (Auto) % Eos % (Auto) % Baso % (Auto) % Neut # (Auto) (1.4-6.5) K/uL Lymph # (Auto) (1.2-3.4) K/uL Ashley # (Auto) (0.11-0.59) K/uL Eos # (Auto) (0-0.5) K/uL Baso # (Auto) (0-0.2) K/uL Immature Gran # (Auto) (0.00-0.02) K/uL ESR (0-30) mm/hr PT (9.0-12.0) Seconds INR (0.9-1.1) APTT (21.0-31.0) Seconds PTT Ratio VBG pH (7.36-7.41) VBG pCO2 (38-50) mmHg VBG pO2 mmHg VBG HCO3 mmol/L VBG O2 Saturation % VBG Base Excess mEq/L Barometric Pressure mm/Hg Sodium (136-145) mmol/L Potassium (3.5-5.1) mmol/L Chloride (98-107) mmol/L Carbon Dioxide (21-32) mmol/L Anion Gap (3-11) BUN (7-18) mg/dl Creatinine (0.6-1.2) mg/dl Est Cr Clr Drug Dosing ml/min Est GFR ( Amer) ml/min Est GFR (Non-Af Amer) ml/min BUN/Creatinine Ratio (10-20) Glucose (70-99) mg/dl Lactate 1.4 (0.4-2.0) mmol/L Calcium (8.5-10.1) mg/dl Magnesium (1.8-2.4) mg/dl Total Bilirubin (0.2-1) mg/dl AST (15-37) U/L ALT (12-78) U/L Alkaline Phosphatase (45-117) U/L Troponin I (0-0.045) ng/ml C-Reactive Protein (0-0.29) mg/dl NT-Pro-B Natriuret Pep (0-1800) pg/ml Total Protein (6.4-8.2) gm/dl Albumin (3.4-5.0) gm/dl Globulin (2.5-4.0) gm/dl Albumin/Globulin Ratio (0.9-2) Beta-Hydroxybutyric Acd (0.2-2.81) mg/dl Procalcitonin < 0.05 (0-0.5) ng/ml Urine Color Urine Appearance (Clear) Urine pH (4.5-7.5) Ur Specific Cades (1.000-1.030) Urine Protein (Negative) Urine Glucose (UA) (Negative) Urine Ketones (Negative) Urine Blood (Negative) Urine Nitrite (Negative) Urine Bilirubin (Negative) Urine Urobilinogen (Negative) Ur Leukocyte Esterase (Negative) Urine WBC (Auto) (0-5) /hpf Urine RBC (Auto) (0-4) /hpf U Hyaline Cast (Auto) (0-5) /lpf U Epithel Cells (Auto) (0-5) /lpf Urine Bacteria (Auto) (Negative) Urine Yeast COVID-19 Eval Order SARS-CoV-2 (PCR) (Negative) Administered Medications Discontinued Medications Sodium Chloride (Nss 1000ml) 500 mls @ 999 mls/hr IV .Q31M ONE Stop: 03/11/21 16:13 Last Infusion: 03/11/21 16:47 Dose: 0 mls/hr Documented by: [id number] Admin: 03/11/21 16:14 Dose: 999 mls/hr Documented by: [id number] Piperacillin Sod/Tazobactam Sod (Zosyn) 4.5 gm in 120 mls @ 240 mls/hr IV NOW ONE Stop: 03/11/21 16:13 Last Infusion: 03/11/21 16:32 Dose: 0 mls/hr Documented by: [id number] Admin: 03/11/21 15:55 Dose: 240 mls/hr Documented by: [id number] Insulin Human Regular (Novolin-R Insulin Per Unit Charge) 4 units IV NOW STA Stop: 03/11/21 15:44 Last Admin: 03/11/21 15:51 Dose: 4 units Documented by: [id number] Cosigned by: [id number] Imaging Data Radiologist's Impression: Chest X-Ray 03/11/21 13:05 XR chest 1V portable CLINICAL HISTORY: Shortness of breath. COMPARISON STUDY: Chest radiograph September 30, 2020. 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 There is mild elevation of the right hemidiaphragm. No pneumothorax or pleural effusion is noted. There is interstitial thickening. Cardiomegaly is unchanged. No lobar consolidation is present. There is mild left lower lung opacity. IMPRESSION: 1. Interstitial thickening suggestive of mild pulmonary edema. 2. Cardiomegaly. 3. Mild left lower lung opacity. ACT 112: Negative or not required by law. Electronically signed by: Adrian Hoffman M.D. 03/11/2021 2:01 PM Discharge Plan Visit Data Chief Complaint: Shortness of Breath/Dyspnea Stated Complaint: SOB ED Provider: Aston Jenkins Discharge Problem: Pneumonia, Urinary tract infection, Acute hyperglycemia Patient Disposition: Being Evaluated by Hospitalist Condition: Good Forms Stand Alone Forms: My XGraph Prescriptions Prescriptions: No Action (DME) Novofine Autocover 30 gauge x 1/3" needle See Rx Instructions .ROUTE .MEDSUPPLY Qty: 200 RF: 3 conjugated estrogens 0.625 mg/gram cream 1 applic topical 3XWK Qty: 30 RF: 3 nystatin 100,000 unit/gram powder 1 applic TOPICAL BID Qty: 60 RF: 6 tamsulosin [Flomax] 0.4 mg capsule 0.4 mg PO HS Qty: 90 RF: 3 levothyroxine 125 mcg tablet 250 mcg PO QAM Qty: 180 RF: 3 atenolol 25 mg tablet 25 mg PO DAILY Qty: 90 RF: 3 albuterol sulfate [ProAir HFA] 90 mcg/actuation HFA aerosol inhaler 2 puff INHALATION Q4 PRN (Reason: Shortness Of Breath) Qty: 18 RF: 0 nystatin-triamcinolone 100,000-0.1 unit/gram-% ointment 1 applic TOP TID Qty: 30 RF: 2 (DME) OneTouch Ultra Blue Test Strip Strip See Rx Instructions .ROUTE .MEDSUPPLY Qty: 180 RF: 3 famotidine 20 mg tablet 20 mg PO BID Qty: 180 RF: 3 tramadol 50 mg tablet 50 mg PO Q12H PRN (Reason: Pain) Qty: 60 RF: 5 Novolin 70-30 FlexPen U-100 100 unit/mL (70-30) insulin pen See Rx Instructions SQ TIDM Qty: 15 RF: 3 bumetanide 1 mg tablet 1 mg PO DAILY Qty: 90 RF: 3 Eliquis 5 mg tablet 5 mg PO BID Qty: 180 RF: 3 montelukast 10 mg tablet 10 mg PO QPM Qty: 90 RF: 3 (DME) lancets [ReadyLance Safety Lancets] 30 gauge misc See Rx Instructions .ROUTE .MEDSUPPLY Qty: 200 RF: 5 gabapentin 300 mg capsule 300 mg PO TID Qty: 90 RF: 5 Myrbetriq 50 mg tablet extended release 24 hr 50 mg PO DAILY Qty: 90 RF: 3 melatonin 10 mg capsule 10 mg PO HS RF: 0 diphenhydramine HCl [Allergy (diphenhydramine)] 25 mg capsule 25 mg PO TID PRN (Reason: Itching) RF: 0 methenamine hippurate 1 gram tablet 1 g PO QPM Qty: 90 RF: 3 donepezil 5 mg Tablet 5 mg PO HS RF: 0 duloxetine 60 mg Capsule,Delayed Release(Dr/Ec) 60 mg PO BID RF: 0 polyethylene glycol 3350 [Miralax] 17 gram Powder In Packet 17 g PO DAILY PRN (Reason: Constipation) RF: 0 acetaminophen [Tylenol Extra Strength] 500 mg Tablet 1,000 mg PO Q8 PRN (Reason: Pain) RF: 0 Restasis 0.05 % Dropperette 1 drp OPB BID RF: 0 guaifenesin [Mucinex] 600 mg Tablet Extended Release 12hr 600 mg PO Q12H PRN (Reason: Congestion) RF: 0 ketoconazole 2 % Shampoo 1 ea TOPICAL 2XWK RF: 0 Systane Ultra 0.4-0.3 % Drops 1 drp OPHTHALMIC (EYE) TID RF: 0 lorazepam 0.5 mg tablet 0.5 mg PO QDL RF: 0 mirtazapine 45 mg tablet 45 mg PO HS RF: 0 vitamin B complex Tablet 1 tab PO DAILY RF: 0 triamcinolone acetonide 0.1 % cream 1 applic TOPICAL BID PRN (Reason: dermatitis) RF: 0 Systane Gel 0.3 % Gel 1 drp OPB HS RF: 0 ferrous sulfate [Iron (ferrous sulfate)] 325 mg (65 mg iron) Tablet 1 tab PO 3XWK RF: 0 multivitamin Tablet 1 tab PO QAM RF: 0 haloperidol [Haldol] 5 mg Tablet 5 mg PO DAILY RF: 0 cetirizine [Zyrtec] 10 mg Tablet 10 mg PO DAILY RF: 0 minocycline 100 mg capsule 100 mg PO BID RF: 0 loperamide [Imodium A-D] 2 mg Tablet 1 mg PO DAILY PRN (Reason: Diarrhea) RF: 0 calcium carbonate-vitamin D3 [Calcium + D] 600 mg(1,500mg) -200 unit Tablet 1 tab PO BID RF: 0 doxepin 10 mg capsule 10 mg PO DAILY RF: 0 amitriptyline 50 mg tablet 50 mg PO QPM RF: 0 amitriptyline 25 mg tablet 25 mg PO QAM RF: 0 magnesium hydroxide [Milk of Magnesia] 400 mg/5 mL Suspension 15 - 30 ml PO DAILY PRN (Reason: Constipation) RF: 0 lorazepam 1 mg tablet 1 mg PO HS RF: 0 glucosamine-chondroitin 750-600 mg Tablet 1,500 tab PO QAM RF: 0 Atrovent HFA 17 mcg/actuation Hfa Aerosol Inhaler 2 puff INHALATION QID PRN (Reason: Shortness Of Breath Or Wheezing) RF: 0 sertraline 100 mg tablet 100 mg PO QAM RF: 0 diclofenac sodium 1 % gel 2 g TOPICAL QID PRN (Reason: Pain) RF: 0 potassium chloride 20 mEq tablet,ER particles/crystals 40 meq PO BID RF: 0 pantoprazole 40 mg tablet,delayed release (DR/EC) 40 mg PO QAM RF: 0 [facility] - Discharge Problem: Pneumonia Qualifiers: Pneumonia type: due to unspecified organism Laterality: unspecified laterality Lung location: unspecified part of lung Qualified Code(s): J18.9 - Pneumonia, unspecified organism Urinary tract infection Qualifiers: Urinary tract infection type: site unspecified Hematuria presence: without hematuria Qualified Code(s): N39.0 - Urinary tract infection, site not specified
--- NOTE | 2021-03-11 14:02 | XRay Report ---
XR chest 1V portable CLINICAL HISTORY: Shortness of breath. COMPARISON STUDY: Chest radiograph September 30, 2020. 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 There is moderate t o severe osteoarthritis of the left shoulder. There is mild elevation of the right hemidiaphragm. No pneumothorax or pleural effusion is noted. There is interstitial thickening. Cardiomegaly is unchange d. No lobar consolidation is present. There is mild left lower lung opacity. IMPRESSION: 1. Interstitial thickening suggestive of mild pulmonary edema. 2. Cardiomegaly. 3. Mild left lower lung opacity. ACT 112: Negative or not required by law. Electronically signed by: Adrian Hoffman M.D. 03/11/2021 2:01 PM
[2021-03-11 14:40] LABS: Basophils # (auto) 0.01 K/uL (0-0.2); Basophils % (auto) 0.1 %; Eosinophils # (auto) 1.04 K/uL (0-0.5); Eosinophils % (auto) 7.3 %; Hematocrit (blood only) 35.9 % (37-47); Immature Granulocytes # (auto) 0.09 K/uL (0.00-0.02); Immature Granulocytes % (auto) 0.6 %; Lymphocytes # (auto) 0.79 K/uL (1.2-3.4); Lymphocytes % (auto) 5.6 %; Mean Corpuscular Hemoglobin 29.9 pg (25-34); Mean Corpuscular Hgb Conc 33.4 g/dL (32-36); Mean Corpuscular Volume 89.5 fL (80-100); Mean Platelet Volume 9.9 fL (7.4-10.4); Monocytes # (auto) 0.86 K/uL (0.11-0.59); Monocytes % (auto) 6.1 %; Neutrophils # (auto) 11.39 K/uL (1.4-6.5); Neutrophils % (auto) 80.3 %; Platelet Count 202 K/uL (130-400); RDW Coefficient of Variation 14.7 % (11.5-14.5); RDW Standard Deviation 47.8 fL (36.4-46.3); Red Blood Count 4.01 M/uL (4.2-5.4); White Blood Count 14.18 K/uL (4.8-10.8)
[2021-03-11 14:45] LABS: Base Excess VBG 7.1 mEq/L; HCO3 VBG 34 mmol/L; PCO2 VBG 57 mmHg (38-50); PO2 VBG 27 mmHg; pH VBG 7.39 (7.36-7.41)
[2021-03-11 14:46] LABS: Oxygen Saturation VBG < 60.0 %
[2021-03-11 14:52] LABS: Partial Thromboplastin Ratio 1.3; Partial Thromboplastin Time 33.1 Seconds (21.0-31.0); Prothrombin Time 10.6 Seconds (9.0-12.0)
[2021-03-11 15:03] LABS: Appearance Urine Turbid (Clear); Bacteria Urine Automated 3+ (Negative); Bilirubin Urine Negative (Negative); Blood Urine Trace (Negative); Color Urine Yellow; Glucose Urine UA 2+ (Negative); Ketones Urine Negative (Negative); Leukocyte Esterase Urine Trace (Negative); Nitrite Urine Positive (Negative); Protein Urine Negative (Negative); RBC Urine Automated 0-4 /hpf (0-4); Specific Gravity Urine 1.009 (1.000-1.030); Urobilinogen Urine Negative (Negative); WBC Urine Automated >30 /hpf (0-5)
[2021-03-11 15:11] LABS: Alanine Aminotransferase 29 U/L (12-78); Albumin Globulin Ratio 0.7 (0.9-2); Albumin Level 2.9 gm/dl (3.4-5.0); Alkaline Phosphatase 114 U/L (45-117); Aspartate Aminotransferase 19 U/L (15-37); BUN Creatinine Ratio 11.6 (10-20); Bilirubin,Total 0.4 mg/dl (0.2-1); Blood Urea Nitrogen 10 mg/dl (7-18); Calcium 8.5 mg/dl (8.5-10.1); Carbon Dioxide 34 mmol/L (21-32); Chloride 90 mmol/L (98-107); Creatinine Clr Calc Pharmacy 64.5 ml/min; Est GFR (Non-African American) 60.4 ml/min; Globulin 4.3 gm/dl (2.5-4.0); Glucose 306 mg/dl (70-99); Magnesium 1.8 mg/dl (1.8-2.4); Potassium 4.3 mmol/L (3.5-5.1); Sodium 127 mmol/L (136-145); Total Protein 7.2 gm/dl (6.4-8.2); Troponin I < 0.015 ng/ml (0-0.045)
[2021-03-11] MEDS ORDERED: NovoLIN-R INSULIN PER UNIT CHARGE IV STA (15:43)
[2021-03-11] MEDS ORDERED: SODIUM CHLORIDE 0.9% 1000ML 500 ML IV ONE (15:43)
[2021-03-11] MEDS ORDERED: PIPERACILL/TAZOBAC CONSULT ACTIVE PRN ×2 (15:44→20:45)
[2021-03-11] MEDS ORDERED: PIPERACILLIN/TAZOBACTAM 4.5 GM/120 ML BAG IV ONE (15:44)
--- NOTE | 2021-03-11 16:37 | History & Physical Report ---
Date of Service March 11, 2021 Assessment & Plan (1) Cellulitis: Presents with low-grade fever, worsening swelling and erythema of the right leg, tachycardia, leukocytosis. No open wounds Cellulitis likely exacerbated by CHF as below with lower extremity edema Has a history of Pseudomonas UTIs -Admit to medical floor with telemetry -Continue IV Zosyn -Follow blood cultures -Follow cellulitis clinically, keep limb elevated when possible. In the past, she has refused compression stockings as per her daughter and previous notes reviewed in the chart (2) Chronic diastolic congestive heart failure: With volume overload-she is up 30 kg of body weight since last year and 13 kg of body weight in the last 6 months Last echocardiogram 2019 with elevated right-sided pressures and preserved EF Given history of YARI, morbid obesity, most likely secondary to diastolic and right-sided heart failure proBNP is normal but could be in the setting of morbid obesity and right-sided failure With significant lower extremity edema, rales on examination, weight gain -Diuresed with IV Bumex 1 mg twice daily -Hold home p.o. Bumex -Follow BMP -Daily weights, I's and O's, low-sodium diet, and fluid restrict to 1500 mL daily -Does follow with [facility] cardiology if consultation desired (3) Pneumonia: With productive cough, fever, tachycardia, leukocytosis as above-chest x- ray with possible left lower lobe infiltrate, but this may just be from pulmonary edema and not necessarily pneumonia. Other findings may be from her cellulitis as above. However, will treat with antibiotics as above Follow blood cultures Is not hypoxic at this time (4) Urinary tract infection: Urinalysis is abnormal but patient has chronic indwelling Bernal catheter Do not suspect she needs treatment for UTI at this time however is on antibiotics as above for cellulitis Follow urine culture, blood cultures Bernal catheter just exchanged on 03/05 and daughter reports that she gets her c atheter exchanged weekly-she would be due then for an exchange on 03/12 (5) Type 2 diabetes mellitus with other circulatory complications: Hemoglobin A1c 8.0% in 11/2020 With significant hyperglycemia here On high doses of NPH 70/30 3 times daily as an outpatient -Consult pharmacy -Start Lantus 15 units twice daily and use NovoLog supplemental insulin Check hemoglobin A1c in the morning (6) Anemia: Has been mildly low in the past but is normal for the last year and a half (7) Asthma: No acute issues Continue rescue inhalers as needed (8) Atrial flutter, paroxysmal: In sinus rhythm here Follow on telemetry Continue apixaban, atenolol (9) CAD (coronary artery disease): Noted to be nonobstructive on remote cath Troponin negative here, no acute issues (10) Chronic interstitial cystitis: Continue methenamine, has chronic indwelling Bernal catheter Continue amitriptyline Is also on chronic tramadol as needed (11) Depression with anxiety: Pretty significant and follows with psychiatry, Dr. Mckenzie as an outpatient Is on numerous psychiatric medications to include amitriptyline, doxepin, duloxetine, Haldol as needed, lorazepam, mirtazapine, and sertraline Was also recently put on diphenhydramine to help with itching-hold this With polypharmacy-discussed with patient and her daughter, she has been tried to reduce her medications with PCP and has been unsuccessful (12) GERD (gastroesophageal reflux disease): Continue pantoprazole daily, Pepcid (13) History of pulmonary embolism: Is on Eliquis for atrial flutter as above (14) Hypertension: Blood pressure is mildly elevated here Continue home atenolol -Diuresing as above with Bumex (15) Hypothyroidism: TSH 4.4 in 09/2020 Is on very high dose of levothyroxine May have difficulty with absorption due to bowel edema from significant volume overload Follow TSH in the morning (16) Insomnia: Severe, reports she only sleeps from 11:30 PM to 3:30 in the morning every night Continue home medications as per psychiatry (17) Incomplete bladder emptying: With Bernal catheter in place Is on Myrbetriq-this may be able to be stopped unless it is being used for bladder spasm (18) YARI (obstructive sleep apnea): Continue CPAP although she reports she has been noncompliant with this at home Ordered for here and she is willing to use it (19) Osteoporosis: Noted (20) DVT prophylaxis: Apixaban Disposition-admit to medical floor with telemetry DNR/DNI as per my discussion with patient, daughter is in agreement History of Present Illness Chief Complaint: Cough, shortness of breath Primary Care Provider: [employer], [facility] This patient is an 80-year-old female who presents from [facility] who presents with productive cough and dyspnea on exertion worsening over the last week who was found to have "fluid around my lung" on an outside chest x-ray at her personal [facility] and was reported to be hypoxic prior to arrival however here she is not hypoxic. She is also noted increased swelling in her legs and more redness in the right leg. She reports her blood sugar was 500 at her personal [facility] this morning. She denies any fevers or chills, no chest pain but has felt tightness in her chest for a couple of weeks that is constant. She reports she has not weighed herself in the last few days and does not know if she has gained more weight. Review of her weights at the hospital show that she is up 13 kg since September, and up at least 30 kg since last year. She has a history of indwelling Bernal catheter for uterine prolapse and urinary retention which was just exchanged on 03/05, chronic diastolic CHF, HTN, paroxysmal atrial flutter on apixaban, DM 2, chronic interstitial cystitis, chronic hyponatremia, constipation, hyperlipidemia, hypothyroidism, YARI on CPAP, migraine headaches, PAD, PE, TIA, dementia, GERD, depression/anxiety, mild nonobstructive CAD, peripheral neuropathy, IBS, osteoporosis, iron deficiency anemia, hypokalemia, recurrent UTI. In the ER, she was found to have a low-grade temperature of 37.6 C, she had mild tachycardia, no tachypnea, pulse ox was 92-97% on room air, and blood pressures were normal to mildly elevated. She was found to have a leukocytosis of 14, hyperglycemia with glucose of 306, corrected sodium of 130 which is at her baseline, elevated ESR and CRP, and urinalysis which appeared infected however she has a chronic indwelling Bernal catheter. Her Covid-19 test was negative. Lactate was normal at 1.4, troponin negative, and procalcitonin was normal. A chest x-ray showed interstitial thickening suggestive of mild pulmonary edema as well as a mild left lower lung opacity possibly consistent with pneumonia. In the ER, she was treated with IV Zosyn, 500 mL of normal saline, and 4 units of IV regular insulin. She will be admitted for acute on chronic diastolic CHF, possible pneumonia, and right lower extremity cellulitis plus/minus Bernal catheter associated UTI. Allergies Allergy/AdvReac Type Severity Reaction Status Date / Time KODAK Inhibitors Allergy Unknown Unknown Verified 03/11/21 15:21 benson Allergy Unknown Unknown Verified 03/11/21 15:21 grass pollen Allergy Unknown Unknown Verified 03/11/21 15:21 miconazole [From Monistat 3] Allergy Unknown Unknown Verified 03/11/21 15:21 perfume Allergy Unknown Unknown Verified 03/11/21 15:21 skin cleanser combination Allergy Unknown Unknown Verified 03/11/21 15:21 no.17 [From Monistat 3] quetiapine [From Seroquel] AdvReac Intermediate Night Verified 03/11/21 15:21 terrors Home Medications Medication Instructions Recorded Confirmed Type Restasis 1 drp OPB BID 05/16/18 03/11/21 History acetaminophen [Tylenol Extra 1,000 mg PO Q8 PRN 05/16/18 03/11/21 History Strength] donepezil 5 mg PO HS 05/16/18 03/11/21 History duloxetine 60 mg PO BID 05/16/18 03/11/21 History guaifenesin [Mucinex] 600 mg PO Q12H PRN 05/16/18 03/11/21 History polyethylene glycol 3350 [Miralax] 17 g PO DAILY PRN 05/16/18 03/11/21 History Systane Gel 1 drp OPB HS 12/12/18 03/11/21 History ferrous sulfate [Iron (ferrous 1 tab PO 3XWK 01/20/19 03/11/21 History sulfate)] methenamine hippurate 1 gram tablet 1 g PO QPM #90 tab 03/12/20 03/11/21 Rx melatonin 10 mg capsule 10 mg PO HS 04/22/20 03/11/21 History pen needle, diabetic, safety 30 #200 ea 05/06/20 03/11/21 Rx gauge x 1/3" conjugated estrogens 0.625 mg/gram 1 applic TOPICAL 3XWK #30 gm 06/27/20 03/11/21 Rx vaginal cream ketoconazole 1 ea TOPICAL 2XWK 07/06/20 03/11/21 History lorazepam 0.5 mg PO QDL 07/06/20 03/11/21 History peg 400-propylene glycol [Systane 1 drp OPHTHALMIC (EYE) TID 07/06/20 03/11/21 History Ultra] nystatin 100,000 unit/gram topical 1 applic TOPICAL BID #60 gm 08/04/20 03/11/21 Rx powder tamsulosin 0.4 mg capsule 0.4 mg PO HS #90 cap 08/11/20 03/11/21 Rx levothyroxine 125 mcg tablet 250 mcg PO QAM #180 tab 08/12/20 03/11/21 Rx mirtazapine 45 mg PO HS 09/20/20 03/11/21 History triamcinolone acetonide 1 applic TOPICAL BID PRN 09/20/20 03/11/21 History vitamin B complex 1 tab PO DAILY 09/20/20 03/11/21 History albuterol sulfate 90 mcg/actuation 2 puff INHALATION Q4 PRN #18 g 09/29/20 03/11/21 Rx aerosol inhaler atenolol 25 mg tablet 25 mg PO DAILY #90 tab 09/29/20 03/11/21 Rx nystatin-triamcinolone 100,000 1 applic TOP TID #30 g 10/07/20 03/11/21 Rx unit/gram-0.1 % topical ointment blood sugar diagnostic #180 ea 11/10/20 03/11/21 Rx diphenhydramine HCl 25 mg capsule 25 mg PO TID PRN cap 11/19/20 03/11/21 History famotidine 20 mg tablet 20 mg PO BID #180 tab 11/25/20 03/11/21 Rx insulin NPH-regular 70-30 U-100 See Rx Instructions SQ TIDM #15 ml 12/15/20 03/11/21 Rx insulin 100 unit/mL subcutaneous pen tramadol 50 mg tablet 50 mg PO Q12H PRN #60 tab 12/15/20 03/11/21 Rx bumetanide 1 mg tablet 1 mg PO DAILY #90 tab 12/17/20 03/11/21 Rx apixaban 5 mg tablet 5 mg PO BID #180 tab 01/08/21 03/11/21 Rx lancets 30 gauge #200 ea 02/23/21 03/11/21 Rx montelukast 10 mg tablet 10 mg PO QPM #90 tab 02/23/21 03/11/21 Rx gabapentin 300 mg capsule 300 mg PO TID #90 cap 03/02/21 03/11/21 Rx mirabegron 50 mg tablet,extended 50 mg PO DAILY #90 tab 03/02/21 03/11/21 Rx release 24 hr amitriptyline 25 mg PO QAM 03/11/21 03/11/21 History amitriptyline 50 mg PO QPM 03/11/21 03/11/21 History calcium carbonate-vitamin D3 1 tab PO BID 03/11/21 03/11/21 History [Calcium + D] cetirizine [Zyrtec] 10 mg PO DAILY 03/11/21 03/11/21 History diclofenac sodium 2 g TOPICAL QID PRN 03/11/21 03/11/21 History doxepin 10 mg PO DAILY 03/11/21 03/11/21 History glucosamine-chondroitin 1,500 tab PO QAM 03/11/21 03/11/21 History haloperidol [Haldol] 5 mg PO DAILY 03/11/21 03/11/21 History ipratropium bromide [Atrovent HFA] 2 puff INHALATION QID PRN 03/11/21 03/11/21 History loperamide [Imodium A-D] 1 mg PO DAILY PRN 03/11/21 03/11/21 History lorazepam 1 mg PO HS 03/11/21 03/11/21 History magnesium hydroxide [Milk of 15 - 30 ml PO DAILY PRN 03/11/21 03/11/21 History Magnesia] minocycline 100 mg PO BID 03/11/21 03/11/21 History multivitamin 1 tab PO QAM 03/11/21 03/11/21 History pantoprazole 40 mg PO QAM 03/11/21 03/11/21 History potassium chloride 40 meq PO BID 03/11/21 03/11/21 History sertraline 100 mg PO QAM 03/11/21 03/11/21 History Past Med/Surg History Medical History Acute metabolic encephalopathy Allergic rhinitis Anemia Arthritis Asthma Atherosclerotic heart disease of hughes coronary artery without angina pectoris Atrial flutter, paroxysmal Balance disorder Basal pneumonia of both lungs BMI 45.0-49.9, adult Bowel incontinence Bulging lumbar disc CAD (coronary artery disease) Cardiac valve prolapse Cellulitis of lower leg Chronic constipation Chronic hyponatremia Chronic interstitial cystitis Chronic vulvitis Confusion Cystocele, midline Depression with anxiety Diabetes Diabetes with neurologic complications Diabetic peripheral neuropathy Diabetic peripheral neuropathy associated with type 2 diabetes mellitus Diastolic CHF, acute on chronic Dry eye syndrome of both lacrimal glands Edema Foot deformity Foot deformity, bilateral Foot pain Gait disturbance Gastroparesis GERD (gastroesophageal reflux disease) Hematuria, microscopic History of intestinal obstruction History of pulmonary embolism History of rotator cuff tear Hyperlipidemia Hypertension Hypomagnesemia Hyponatremia Hypothyroidism Incomplete bladder emptying Incontinence Insomnia Irritable bowel syndrome Knee pain, bilateral Loss of sensation Lymphedema Memory loss Migraine headache YARI (obstructive sleep apnea) Peripheral vascular disease Pessary maintenance Post-menopausal atrophic vaginitis Pulmonary embolism Rectocele Rotator cuff tendonitis Sepsis Skin ulcer Squamous cell carcinoma of skin TIA (transient ischemic attack) Type 2 diabetes mellitus with other circulatory complications Urge and stress incontinence UTI (urinary tract infection) UTI (urinary tract infection) Venous insufficiency Wears dentures Surgical History Cataract H/O oral surgery History of knee replacement History of mandibular surgery repair of mandible with endosteal implant History of surgery lysis of intestinal adhesions History of total hysterectomy Family History Father Diabetes Prostate cancer Colon cancer Colorectal cancer Mother Diabetes Heart disease Brother Acute myocardial infarction Family/Other Cancer Colorectal cancer sibling Hypertension Denies family history of Ovarian cancer Crohn's disease Breast cancer Social History Smoking Status: Never smoker Tobacco Type: Cigarettes Second Hand Exposure: No; Hx Alcohol Use: No Hx Substance Use: No Preferred Language: [place] Communication Ability: Effective Visual Impairment: No Limitations Hearing Ability: Normal Mining Analyst Required: No Beliefs That Will Affect Care: None marital status: / Current Living Situation: Personal Care Facility Current Living Situation Comment: [facility] current occupational status: retired How many Children do You have: 2 Feels Safe at Home: Yes Childhood Exposure to Second-Hand Smoke: No Dental Care, Regularly: Yes Physical Activity Frequency: Does not Exercise Seatbelt Use: always Sunscreen Use: Yes Assistive Devices: None and Walker Review of Systems Review of Systems: All systems reviewed & are unremarkable except as noted in HPI & below Physical Exam Constitutional: WD/WN, vitals as above + morbidly obese; no acute distress Eyes: PERRL, conjunctivae normal, anicteric sclerae ENMT: external ear and nose normal, oropharynx normal Neck: trachea midline, no thyromegaly Respiratory: normal respiratory effort; no cough Auscultation: + crackles (bibasilar) and + wheezes (upper airway with forced expiration); no rhonchi Cardiovascular: Rate/Rhythm: regular rate and regular rhythm Heart Sounds: no murmur Extremities: + edema (2-3+ pitting edema in the lower extremities bilaterally to the knees) Chest (Breasts): Chest: normal inspection of chest Gastrointestinal (Abdomen): normal bowel sounds, soft, nontender, no hepatosplenomegaly Musculoskeletal: Extremities: no cyanosis and no clubbing Skin: + erythema (Right leg from mid tibia to ankle anteriorly, mild pink venous stasis LLE) Neurologic: moves all extremities and awake; no focal motor deficits Psychiatric: A+Ox3, euthymic affect Genitourinary: Bernal catheter in place draining yellow urine with some sediment, no hematuria Results & Data Results & Data ([facility]) Vital Signs (Past 12 Hours) Vital Signs Temp Pulse Resp BP Pulse Ox 03/11/21 15:40 96 H 23 96 03/11/21 15:31 104 H 22 134/84 03/11/21 15:30 105 H 21 97 03/11/21 15:20 90 22 03/11/21 15:10 88 24 96 03/11/21 15:00 104 H 23 147/94 H 96 03/11/21 14:50 88 22 97 03/11/21 14:40 104 H 22 96 03/11/21 14:30 110 H 23 93 03/11/21 14:20 108 H 22 95 03/11/21 14:00 89 23 130/94 92 03/11/21 13:49 93 03/11/21 13:07 93 03/11/21 13:04 93 03/11/21 12:57 37.6 C H 108 H 22 120/101 H 94 Laboratory Results 03/11/21 03/11/21 03/11/21 Range/Units 16:36 14:33 14:29 WBC (4.8-10.8) K/uL RBC (4.2-5.4) M/uL Hgb (12.0-16.0) g/dL Hct (37-47) % MCV (80-100) fL MCH (25-34) pg MCHC (32-36) g/dL RDW Std Deviation (36.4-46.3) fL RDW Coeff of Chalino (11.5-14.5) % Plt Count (130-400) K/uL MPV (7.4-10.4) fL Immature Gran % (Auto) % Neut % (Auto) % Lymph % (Auto) % [place] % (Auto) % Eos % (Auto) % Baso % (Auto) % Neut # (Auto) (1.4-6.5) K/uL Lymph # (Auto) (1.2-3.4) K/uL [place] # (Auto) (0.11-0.59) K/uL Eos # (Auto) (0-0.5) K/uL Baso # (Auto) (0-0.2) K/uL Immature Gran # (Auto) (0.00-0.02) K/uL ESR (0-30) mm/hr PT (9.0-12.0) Seconds INR (0.9-1.1) APTT (21.0-31.0) Seconds PTT Ratio VBG pH (7.36-7.41) VBG pCO2 (38-50) mmHg VBG pO2 mmHg VBG HCO3 mmol/L VBG O2 Saturation % VBG Base Excess mEq/L Barometric Pressure mm/Hg Sodium (136-145) mmol/L Potassium (3.5-5.1) mmol/L Chloride (98-107) mmol/L Carbon Dioxide (21-32) mmol/L Anion Gap (3-11) BUN (7-18) mg/dl Creatinine (0.6-1.2) mg/dl Est Cr Clr Drug Dosing ml/min Est GFR ( Amer) ml/min Est GFR (Non-Af Amer) ml/min BUN/Creatinine Ratio (10-20) Glucose (70-99) mg/dl Lactate 1.4 (0.4-2.0) mmol/L Calcium (8.5-10.1) mg/dl Magnesium (1.8-2.4) mg/dl Total Bilirubin (0.2-1) mg/dl AST (15-37) U/L ALT (12-78) U/L Alkaline Phosphatase (45-117) U/L Troponin I (0-0.045) ng/ml C-Reactive Protein (0-0.29) mg/dl NT-Pro-B Natriuret Pep 187 (0-1800) pg/ml Total Protein (6.4-8.2) gm/dl Albumin (3.4-5.0) gm/dl Globulin (2.5-4.0) gm/dl Albumin/Globulin Ratio (0.9-2) Beta-Hydroxybutyric Acd (0.2-2.81) mg/dl Procalcitonin < 0.05 (0-0.5) ng/ml Urine Color Urine Appearance (Clear) Urine pH (4.5-7.5) Ur Specific Cecil (1.000-1.030) Urine Protein (Negative) Urine Glucose (UA) (Negative) Urine Ketones (Negative) Urine Blood (Negative) Urine Nitrite (Negative) Urine Bilirubin (Negative) Urine Urobilinogen (Negative) Ur Leukocyte Esterase (Negative) Urine WBC (Auto) (0-5) /hpf Urine RBC (Auto) (0-4) /hpf U Hyaline Cast (Auto) (0-5) /lpf U Epithel Cells (Auto) (0-5) /lpf Urine Bacteria (Auto) (Negative) Urine Yeast COVID-19 Eval Order SARS-CoV-2 (PCR) (Negative) 03/11/21 03/11/21 03/11/21 Range/Units 14:29 14:29 14:29 WBC (4.8-10.8) K/uL RBC (4.2-5.4) M/uL Hgb (12.0-16.0) g/dL Hct (37-47) % MCV (80-100) fL MCH (25-34) pg MCHC (32-36) g/dL RDW Std Deviation (36.4-46.3) fL RDW Coeff of Chalino (11.5-14.5) % Plt Count (130-400) K/uL MPV (7.4-10.4) fL Immature Gran % (Auto) % Neut % (Auto) % Lymph % (Auto) % [place] % (Auto) % Eos % (Auto) % Baso % (Auto) % Neut # (Auto) (1.4-6.5) K/uL Lymph # (Auto) (1.2-3.4) K/uL [place] # (Auto) (0.11-0.59) K/uL Eos # (Auto) (0-0.5) K/uL Baso # (Auto) (0-0.2) K/uL Immature Gran # (Auto) (0.00-0.02) K/uL ESR 81 H (0-30) mm/hr PT (9.0-12.0) Seconds INR (0.9-1.1) APTT (21.0-31.0) Seconds PTT Ratio VBG pH 7.39 (7.36-7.41) VBG pCO2 57 H (38-50) mmHg VBG pO2 27 mmHg VBG HCO3 34 mmol/L VBG O2 Saturation < 60.0 % VBG Base Excess 7.1 mEq/L Barometric Pressure 731.5 mm/Hg Sodium 127 L (136-145) mmol/L Potassium 4.3 (3.5-5.1) mmol/L Chloride 90 L (98-107) mmol/L Carbon Dioxide 34 H (21-32) mmol/L Anion Gap 3.0 (3-11) BUN 10 (7-18) mg/dl Creatinine 0.90 (0.6-1.2) mg/dl Est Cr Clr Drug Dosing 64.5 ml/min Est GFR ( Amer) 70.0 ml/min Est GFR (Non-Af Amer) 60.4 ml/min BUN/Creatinine Ratio 11.6 (10-20) Glucose 306 H* (70-99) mg/dl Lactate (0.4-2.0) mmol/L Calcium 8.5 (8.5-10.1) mg/dl Magnesium 1.8 (1.8-2.4) mg/dl Total Bilirubin 0.4 (0.2-1) mg/dl AST 19 (15-37) U/L ALT 29 (12-78) U/L Alkaline Phosphatase 114 (45-117) U/L Troponin I < 0.015 (0-0.045) ng/ml C-Reactive Protein 12.00 H (0-0.29) mg/dl NT-Pro-B Natriuret Pep (0-1800) pg/ml Total Protein 7.2 (6.4-8.2) gm/dl Albumin 2.9 L (3.4-5.0) gm/dl Globulin 4.3 H (2.5-4.0) gm/dl Albumin/Globulin Ratio 0.7 L (0.9-2) Beta-Hydroxybutyric Acd (0.2-2.81) mg/dl Procalcitonin (0-0.5) ng/ml Urine Color Urine Appearance (Clear) Urine pH (4.5-7.5) Ur Specific Cecil (1.000-1.030) Urine Protein (Negative) Urine Glucose (UA) (Negative) Urine Ketones (Negative) Urine Blood (Negative) Urine Nitrite (Negative) Urine Bilirubin (Negative) Urine Urobilinogen (Negative) Ur Leukocyte Esterase (Negative) Urine WBC (Auto) (0-5) /hpf Urine RBC (Auto) (0-4) /hpf U Hyaline Cast (Auto) (0-5) /lpf U Epithel Cells (Auto) (0-5) /lpf Urine Bacteria (Auto) (Negative) Urine Yeast COVID-19 Eval Order SARS-CoV-2 (PCR) (Negative) 03/11/21 03/11/21 03/11/21 Range/Units 14:29 14:29 13:57 WBC 14.18 H (4.8-10.8) K/uL RBC 4.01 L (4.2-5.4) M/uL Hgb 12.0 (12.0-16.0) g/dL Hct 35.9 L (37-47) % MCV 89.5 (80-100) fL MCH 29.9 (25-34) pg MCHC 33.4 (32-36) g/dL RDW Std Deviation 47.8 H (36.4-46.3) fL RDW Coeff of Chalino 14.7 H (11.5-14.5) % Plt Count 202 (130-400) K/uL MPV 9.9 (7.4-10.4) fL Immature Gran % (Auto) 0.6 % Neut % (Auto) 80.3 % Lymph % (Auto) 5.6 % [place] % (Auto) 6.1 % Eos % (Auto) 7.3 % Baso % (Auto) 0.1 % Neut # (Auto) 11.39 H (1.4-6.5) K/uL Lymph # (Auto) 0.79 L (1.2-3.4) K/uL [place] # (Auto) 0.86 H (0.11-0.59) K/uL Eos # (Auto) 1.04 H (0-0.5) K/uL Baso # (Auto) 0.01 (0-0.2) K/uL Immature Gran # (Auto) 0.09 H (0.00-0.02) K/uL ESR (0-30) mm/hr PT 10.6 (9.0-12.0) Seconds INR 1.0 (0.9-1.1) APTT 33.1 H (21.0-31.0) Seconds PTT Ratio 1.3 VBG pH (7.36-7.41) VBG pCO2 (38-50) mmHg VBG pO2 mmHg VBG HCO3 mmol/L VBG O2 Saturation % VBG Base Excess mEq/L Barometric Pressure mm/Hg Sodium (136-145) mmol/L Potassium (3.5-5.1) mmol/L Chloride (98-107) mmol/L Carbon Dioxide (21-32) mmol/L Anion Gap (3-11) BUN (7-18) mg/dl Creatinine (0.6-1.2) mg/dl Est Cr Clr Drug Dosing ml/min Est GFR ( Amer) ml/min Est GFR (Non-Af Amer) ml/min BUN/Creatinine Ratio (10-20) Glucose (70-99) mg/dl Lactate (0.4-2.0) mmol/L Calcium (8.5-10.1) mg/dl Magnesium (1.8-2.4) mg/dl Total Bilirubin (0.2-1) mg/dl AST (15-37) U/L ALT (12-78) U/L Alkaline Phosphatase (45-117) U/L Troponin I (0-0.045) ng/ml C-Reactive Protein (0-0.29) mg/dl NT-Pro-B Natriuret Pep (0-1800) pg/ml Total Protein (6.4-8.2) gm/dl Albumin (3.4-5.0) gm/dl Globulin (2.5-4.0) gm/dl Albumin/Globulin Ratio (0.9-2) Beta-Hydroxybutyric Acd (0.2-2.81) mg/dl Procalcitonin (0-0.5) ng/ml Urine Color Urine Appearance (Clear) Urine pH (4.5-7.5) Ur Specific Cecil (1.000-1.030) Urine Protein (Negative) Urine Glucose (UA) (Negative) Urine Ketones (Negative) Urine Blood (Negative) Urine Nitrite (Negative) Urine Bilirubin (Negative) Urine Urobilinogen (Negative) Ur Leukocyte Esterase (Negative) Urine WBC (Auto) (0-5) /hpf Urine RBC (Auto) (0-4) /hpf U Hyaline Cast (Auto) (0-5) /lpf U Epithel Cells (Auto) (0-5) /lpf Urine Bacteria (Auto) (Negative) Urine Yeast COVID-19 Eval Order SARS-CoV-2 (PCR) NEGATIVE (Negative) 03/11/21 03/11/21 Range/Units 13:57 12:55 WBC (4.8-10.8) K/uL RBC (4.2-5.4) M/uL Hgb (12.0-16.0) g/dL Hct (37-47) % MCV (80-100) fL MCH (25-34) pg MCHC (32-36) g/dL RDW Std Deviation (36.4-46.3) fL RDW Coeff of Chalino (11.5-14.5) % Plt Count (130-400) K/uL MPV (7.4-10.4) fL Immature Gran % (Auto) % Neut % (Auto) % Lymph % (Auto) % [place] % (Auto) % Eos % (Auto) % Baso % (Auto) % Neut # (Auto) (1.4-6.5) K/uL Lymph # (Auto) (1.2-3.4) K/uL [place] # (Auto) (0.11-0.59) K/uL Eos # (Auto) (0-0.5) K/uL Baso # (Auto) (0-0.2) K/uL Immature Gran # (Auto) (0.00-0.02) K/uL ESR (0-30) mm/hr PT (9.0-12.0) Seconds INR (0.9-1.1) APTT (21.0-31.0) Seconds PTT Ratio VBG pH (7.36-7.41) VBG pCO2 (38-50) mmHg VBG pO2 mmHg VBG HCO3 mmol/L VBG O2 Saturation % VBG Base Excess mEq/L Barometric Pressure mm/Hg Sodium (136-145) mmol/L Potassium (3.5-5.1) mmol/L Chloride (98-107) mmol/L Carbon Dioxide (21-32) mmol/L Anion Gap (3-11) BUN (7-18) mg/dl Creatinine (0.6-1.2) mg/dl Est Cr Clr Drug Dosing ml/min Est GFR ( Amer) ml/min Est GFR (Non-Af Amer) ml/min BUN/Creatinine Ratio (10-20) Glucose (70-99) mg/dl Lactate (0.4-2.0) mmol/L Calcium (8.5-10.1) mg/dl Magnesium (1.8-2.4) mg/dl Total Bilirubin (0.2-1) mg/dl AST (15-37) U/L ALT (12-78) U/L Alkaline Phosphatase (45-117) U/L Troponin I (0-0.045) ng/ml C-Reactive Protein (0-0.29) mg/dl NT-Pro-B Natriuret Pep (0-1800) pg/ml Total Protein (6.4-8.2) gm/dl Albumin (3.4-5.0) gm/dl Globulin (2.5-4.0) gm/dl Albumin/Globulin Ratio (0.9-2) Beta-Hydroxybutyric Acd (0.2-2.81) mg/dl Procalcitonin (0-0.5) ng/ml Urine Color Yellow Urine Appearance Turbid A (Clear) Urine pH 8.0 H (4.5-7.5) Ur Specific Cecil 1.009 (1.000-1.030) Urine Protein Negative (Negative) Urine Glucose (UA) 2+ H (Negative) Urine Ketones Negative (Negative) Urine Blood Trace H (Negative) Urine Nitrite Positive A (Negative) Urine Bilirubin Negative (Negative) Urine Urobilinogen Negative (Negative) Ur Leukocyte Esterase Trace H (Negative) Urine WBC (Auto) >30 H (0-5) /hpf Urine RBC (Auto) 0-4 (0-4) /hpf U Hyaline Cast (Auto) 1-5 (0-5) /lpf U Epithel Cells (Auto) 10-20 H (0-5) /lpf Urine Bacteria (Auto) 3+ H (Negative) Urine Yeast Not Reportable COVID-19 Eval Order Covid19 at [facility] SARS-CoV-2 (PCR) (Negative) Diagnostic Findings Chest X-Ray 03/11/21 13:05 XR chest 1V portable CLINICAL HISTORY: Shortness of breath. COMPARISON STUDY: Chest radiograph September 30, 2020. 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 There is mild elevation of the right hemidiaphragm. No pneumothorax or pleural effusion is noted. There is interstitial thickening. Cardiomegaly is unchanged. No lobar consolidation is present. There is mild left lower lung opacity. IMPRESSION: 1. Interstitial thickening suggestive of mild pulmonary edema. 2. Cardiomegaly. 3. Mild left lower lung opacity. ACT 112: Negative or not required by law. Electronically signed by: Adrian Hoffman M.D. 03/11/2021 2:01 PM ECG Additional Comments: RhythmECG on 03/11/2021 at 1314 with sinus, sinus arrhythmia with first-degree AV block, KS 214, no ischemic changes Code Status & VTE Plan Code Status DNR/DNI as per discussion with patient VTE Prophylaxis Plan VTE Prophylaxis will be ordered: Yes PG Care Time/CCT Total # of Minutes Spent Total Time Spent with Patient: Total time spent is greater than 50% in coordination of care (as documented) at patient's floor/unit and/or counseling patient: Coding Level of Care Code 25339 Initial Inpt Care Lvl 3 Diagnoses Cellulitis L03.90 Chronic diastolic congestive heart failure I50.32 Pneumonia J18.9 Laterality: unspecified laterality Lung location: unspecified part of lung Pneumonia type: due to unspecified organism Urinary tract infection N39.0 Hematuria presence: without hematuria Urinary tract infection type: site unspecified Type 2 diabetes mellitus with other circulatory complications E11.59 Anemia D64.9 Asthma J45.909 Atrial flutter, paroxysmal I48.92 CAD (coronary artery disease) I25.10 Coronary Disease-Associated Artery/Lesion type: hughes artery [place] vs. transplanted heart: hughes heart Associated angina: without angina Chronic interstitial cystitis N30.10 Depression with anxiety F41.8 GERD (gastroesophageal reflux disease) K21.9 History of pulmonary embolism Z86.711 Hypertension I10 Hypertension type: essential hypertension Hypothyroidism E03.9 Insomnia G47.00 Incomplete bladder emptying R33.9 YARI (obstructive sleep apnea) G47.33 Osteoporosis M81.0 DVT prophylaxis Z29.9 (1) Pneumonia Laterality: unspecified laterality Lung location: unspecified part of lung Pneumonia type: due to unspecified organism Qualified Code(s): J18.9 - Pneumonia, unspecified organism (2) Urinary tract infection Hematuria presence: without hematuria Urinary tract infection type: site unspecified Qualified Code(s): N39.0 - Urinary tract infection, site not specified (3) CAD (coronary artery disease) Coronary Disease-Associated Artery/Lesion type: hughes artery [place] vs. transplanted heart: hughes heart Associated angina: without angina Qualified Code(s): I25.10 - Atherosclerotic heart disease of hughes coronary artery without angina pectoris (4) Hypertension Hypertension type: essential hypertension Qualified Code(s): I10 - Essential (primary) hypertension
[2021-03-11] MEDS ORDERED: CARBOHYDRATES FOR HYPOGLYCEMIA PO PRN (20:45)
[2021-03-11] MEDS ORDERED: IPRATROPIUM BROMIDE HFA INHALER INH PRN (20:45)
[2021-03-11] MEDS ORDERED: ONDANSETRON INJ 2 MG/ML 2 ML VIAL IV PRN (20:45)
[2021-03-11] MEDS ORDERED: DEXTROSE 50% 50 ML SYRINGE IV PRN (20:45)
[2021-03-11] MEDS ORDERED: GLUCOSE 40% GEL 15 GM TUBE PO PRN (20:45)
[2021-03-11] MEDS ORDERED: GLUCOSE 10 TABS/TUBE PO PRN (20:45)
[2021-03-11] MEDS ORDERED: DICLOFENAC SOD 1% GEL 100 GM TUBE EXT PRN (20:45)
[2021-03-11] MEDS ORDERED: GLUCAGON FOR INJ 1 MG VIAL SQ PRN (20:45)
[2021-03-11] MEDS ORDERED: PHARMACY GLYCEMIC MGMT CONSULT PRN (20:58)
[2021-03-11] MEDS ORDERED: INSULIN GLARGINE SOLOSTAR 100 UNITS/ML 3 ML PEN SC SCH (21:00)
[2021-03-11] MEDS: MELATONIN 3 MG TAB PO PRN (22:14)
[2021-03-11] MEDS: POTASSIUM CHLORIDE CRTAB 20 MEQ TABCR PO SCH (22:15)
[2021-03-11] MEDS: MIRTAZAPINE SOLTAB 15 MG PO SCH (22:15)
[2021-03-11] MEDS: TAMSULOSIN HCL 0.4 MG CAP PO SCH (22:15)
[2021-03-11] MEDS: CALCIUM 600MG + VIT D 400 IU TAB PO SCH (22:15)
[2021-03-11] MEDS: LORazepam 1 MG TAB PO SCH (22:15)
[2021-03-11] MEDS: GABAPENTIN 300 MG CAP PO SCH (22:16)
[2021-03-11] MEDS: MONTELUKAST SODIUM 10 MG TABLET PO SCH (22:16)
[2021-03-11] MEDS: DONEPEZIL HCL 5 MG TAB PO SCH (22:16)
[2021-03-11] MEDS: APIXABAN 5 MG TABLET PO SCH (22:17)
[2021-03-11] MEDS: FAMOTIDINE 20 MG TAB PO SCH (22:17)
[2021-03-11] MEDS: DULoxetine HCL 60 MG CAP PO SCH (22:17)
[2021-03-11] MEDS: PIPERACILLIN/TAZOBACTAM 4.5 GM in DEXTROSE 5% 100 ML IV SCH (22:18)
[2021-03-11] MEDS: AMITRIPTYLINE HCL 50 MG TAB PO SCH (22:18)
[2021-03-11] MEDS: BUMETANIDE 1 MG in SYRINGE 0 ML IV SCH (22:20)
[2021-03-11] MEDS: INSULIN ASPART 100 UNITS/ML 3 ML PEN SC SCH (22:22)
[2021-03-11] MEDS: traMADol HCL 50 MG TABLET PO PRN (22:56)
[2021-03-12] MEDS: INSULIN ASPART 100 UNITS/ML 3 ML PEN SC SCH ×7 (00:10→23:56)
[2021-03-12] MEDS: PIPERACILLIN/TAZOBACTAM 4.5 GM in DEXTROSE 5% 100 ML IV SCH ×3 (05:43→21:06)
[2021-03-12] MEDS: LEVOTHYROXINE SODIUM 125 MCG TABLET PO SCH (05:43)
[2021-03-12] MEDS: ACETAMINOPHEN 500 MG TAB PO PRN (08:00)
[2021-03-12 08:18] LABS: Basophils # (auto) 0.01 K/uL (0-0.2); Basophils % (auto) 0.1 %; Eosinophils # (auto) 1.17 K/uL (0-0.5); Eosinophils % (auto) 8.5 %; Hematocrit (blood only) 37.5 % (37-47); Hemoglobin 12.3 g/dL (12.0-16.0); Immature Granulocytes # (auto) 0.08 K/uL (0.00-0.02); Immature Granulocytes % (auto) 0.6 %; Lymphocytes # (auto) 1.05 K/uL (1.2-3.4); Lymphocytes % (auto) 7.6 %; Mean Corpuscular Hemoglobin 29.9 pg (25-34); Mean Corpuscular Hgb Conc 32.8 g/dL (32-36); Monocytes % (auto) 7.3 %; Neutrophils # (auto) 10.46 K/uL (1.4-6.5); Neutrophils % (auto) 75.9 %; Platelet Count 235 K/uL (130-400); RDW Coefficient of Variation 14.8 % (11.5-14.5); RDW Standard Deviation 49.3 fL (36.4-46.3); Red Blood Count 4.12 M/uL (4.2-5.4); White Blood Count 13.77 K/uL (4.8-10.8)
--- NOTE | 2021-03-12 08:40 | XCELERA ---
[id number] \\[id number]\[id number]
[2021-03-12 08:49] LABS: BUN Creatinine Ratio 10.3 (10-20); Calcium 8.6 mg/dl (8.5-10.1); Creatinine Clr Calc Pharmacy 64.1 ml/min; Est GFR (African American) 70.9 ml/min; Est GFR (Non-African American) 61.2 ml/min; Magnesium 1.8 mg/dl (1.8-2.4); Potassium 3.7 mmol/L (3.5-5.1)
[2021-03-12 09:00] LABS: Thyroid Stimulating Hormone 4.62 uIu/ml (0.300-4.500)
[2021-03-12] MEDS ORDERED: NON-FORMULARY MEDICATION (Mirabegron [Myrbetriq] 50 mg tablet extended release 24 hr) PO SCH (09:00)
[2021-03-12] MEDS ORDERED: INSULIN GLARGINE SOLOSTAR 100 UNITS/ML 3 ML PEN SC SCH (09:00)
[2021-03-12] MEDS: RESTASIS~ORDER AWAITING ACTION SCH ×2 (09:11→16:35)
[2021-03-12] MEDS: PANTOprazole 40 MG TAB PO SCH (09:48)
[2021-03-12] MEDS: GABAPENTIN 300 MG CAP PO SCH ×3 (09:48→21:03)
[2021-03-12] MEDS: CHOLECALCIFEROL 1,000 UNITS 25 MCG TAB PO SCH (09:48)
[2021-03-12] MEDS: CALCIUM 600MG + VIT D 400 IU TAB PO SCH ×2 (09:48→21:05)
[2021-03-12] MEDS: CETIRIZINE HCL 10 MG TABLET PO SCH (09:48)
[2021-03-12] MEDS: DOXEPIN HCL 10 MG CAPSULE PO SCH (09:48)
[2021-03-12] MEDS: MULTIVITAMIN TAB PO SCH (09:48)
[2021-03-12] MEDS: DULoxetine HCL 60 MG CAP PO SCH ×2 (09:48→21:03)
[2021-03-12] MEDS: FAMOTIDINE 20 MG TAB PO SCH ×2 (09:48→21:05)
[2021-03-12] MEDS: POTASSIUM CHLORIDE CRTAB 20 MEQ TABCR PO SCH ×2 (09:48→18:07)
[2021-03-12] MEDS: AMITRIPTYLINE HCL 25 MG TAB PO SCH (09:48)
[2021-03-12] MEDS: guaiFENesin 600 MG TABCR PO SCH ×2 (09:48→21:06)
[2021-03-12] MEDS: BUMETANIDE 1 MG in SYRINGE 0 ML IV SCH ×2 (09:48→18:53)
[2021-03-12] MEDS: APIXABAN 5 MG TABLET PO SCH ×2 (09:48→21:04)
[2021-03-12] MEDS: ATENOLOL 25 MG TABLET PO SCH (09:48)
[2021-03-12] MEDS: SERTRALINE HCL 100 MG TABLET PO SCH (09:49)
[2021-03-12 09:54] LABS: Estimated Average Glucose 217 mg/dl; Hemoglobin A1C 9.2 % (4.5-5.6)
--- NOTE | 2021-03-12 11:33 | Pharmacy Report ---
Pharmacy Glycemic Short Note 2 - Date of Service March 12, 2021 - Glycemic Short BSG Results (Last 24 hours): 03/11/21 03/11/21 03/12/21 14:29 20:52 00:06 Glucose 306 H* POC Glucose 263 H 281 H 03/12/21 03/12/21 03/12/21 04:06 07:53 07:55 Glucose 234 H POC Glucose 243 H 237 H OUTPATIENT ANTIDIABETIC REGIMEN: * Novolin 70/30 pre-mixed insulin 30 units with breakfast + 20 units with lunch + 30 units with dinner * A1c = 8% on 11/19/20 * A1c = 9.2% on 03/12/21 ASSESSMENT: * 80yo T2DM female maintained on large outpatient doses of pre-mixed insulin * Outpatient regimen is premixed basal/prandial insulin of Novolin 70/30 mix insulin. * Pre-mixed insulin is difficult to titrate since it is already in a fixed distribution of basal:prandial insulin. Continuing pre-mixed insulin for admission typically lead to hypoglycemia d/t changing PO status but rapid acting insulin is unable to be held. * Home regimen will be held for admission per pharmacy consult. Will utilize recommended regimen of SQ basal bolus insulin regimen with Lantus + NovoLog (CF+CR) * Pt A1c is elevated and she does take her insulin as Rx. She feels that she needs more insulin and has been gaining weight. Will increase to ~120units/day and re-distribute into 50:50% regimen of basal:prandial and titrate based on BSG trends PLAN FOR INPATIENT GLYCEMIC CONTROL: * Hold outpatient oral diabetes medications * Basal insulin * Lantus 40 units SQ x 1 dose this AM for hyperglycemia then, 20-30 units SQ BID based on BSG * Bolus insulin * NovoLog per scale ACHS or Q6hrs while NPO * Goal Range: Low 110 mg/dL - High 140 mg/dL * Correction Factor: 15 mg/dL/unit * Nutritional / Prandial insulin per carb ratio of 1 unit per 4 grams CHO consumed PLAN FOR DISCHARGE: * Titrate outpatient insulin dosing to achieve goal A1c < 8.5% * Pt feels that she needs more insulin at dc. A1c is elevated and patient is gaining weight. Will update insulin dosing recs based on inpatient trends.
[2021-03-12] MEDS: LORazepam 0.5 MG TAB PO SCH (12:22)
[2021-03-12] MEDS: MIRABEGRON ER 25 MG TAB PO SCH (12:22)
--- NOTE | 2021-03-12 14:08 | Electrocardiogram Report ---
Test Reason : Blood Pressure : / mmHG Vent. Rate : 098 BPM Atrial Rate : 098 BPM P-R Int : 214 ms QRS Dur : 090 ms QT Int : 360 ms P-R-T Axes : 056 074 056 degrees QTc Int : 459 ms Sinus rhythm with sinus arrhythmia with 1st degree A-V block Otherwise normal ECG When compared with ECG of 20-SEP-2020 06:36, No significant change was found Confirmed by Oliverio Costello ([id number]) on 03/12/2021 2:07:57 PM Referred By: Confirmed By:Oliverio Costello
[2021-03-12] MEDS: AMITRIPTYLINE HCL 50 MG TAB PO SCH (21:03)
[2021-03-12] MEDS: MELATONIN 3 MG TAB PO PRN (21:04)
[2021-03-12] MEDS: traMADol HCL 50 MG TABLET PO PRN (21:04)
[2021-03-12] MEDS: LORazepam 1 MG TAB PO SCH (21:04)
[2021-03-12] MEDS: MIRTAZAPINE SOLTAB 15 MG PO SCH (21:05)
[2021-03-12] MEDS: TAMSULOSIN HCL 0.4 MG CAP PO SCH (21:05)
[2021-03-12] MEDS: MONTELUKAST SODIUM 10 MG TABLET PO SCH (21:05)
[2021-03-12] MEDS: DONEPEZIL HCL 5 MG TAB PO SCH (21:06)
[2021-03-12] MEDS: INSULIN GLARGINE SOLOSTAR 100 UNITS/ML 3 ML PEN SC SCH (21:09)
--- NOTE | 2021-03-12 21:45 | Hospitalist Progress Note ---
Date of Service March 12, 2021 Assessment & Plan (1) Cellulitis: Presents with low-grade fever, worsening swelling and erythema of the right leg, tachycardia, leukocytosis. No open wounds Cellulitis likely exacerbated with lower extremity edema At this point, do not feel patient has CHF. However will continue to treat with antibiotics. Has a history of Pseudomonas UTIs -Admit to medical floor with telemetry -Continue IV Zosyn -Follow blood cultures -Follow cellulitis clinically, keep limb elevated when possible. In the past, she has refused compression stockings as per her daughter and previous notes reviewed in the chart will hold compression stocking until cellulitis has been treated. Willl continue to diurese to help with the fluid retention. (2) Chronic diastolic congestive heart failure: Patient does appear to have some right sided heart failure, she will likely benefit from some further diuresis given her weight, however, not completely sure this is the main culrpit. Her wheezing could be multifactorial with being obese, ad perhaps having some underlying lung issue. She is going to see Dr. Ferris as an outpatient. Family is requesting a consult with Dr. Ferris while she is here. With volume overload-she is up 30 kg of body weight since last year and 13 kg of body weight in the last 6 months Last echocardiogram 2018 with elevated right-sided pressures and preserved EF Given history of YARI, morbid obesity, most likely secondary to diastolic and right-sided heart failure proBNP is normal but could be in the setting of morbid obesity and right-sided failure With significant lower extremity edema, rales on examination, weight gain -Diuresed with IV Bumex 1 mg twice daily -Hold home p.o. Bumex -Follow BMP -Daily weights, I's and O's, low-sodium diet, and fluid restrict to 1500 mL daily -Does follow with [facility] cardiology if consultation desired (3) Pneumonia: With productive cough, fever, tachycardia, leukocytosis as above-chest x- ray with possible left lower lobe infiltrate, but this may just be from pulmonary edema and not necessarily pneumonia. Other findings may be from her cellulitis as above. However, will treat with antibiotics as above Follow blood cultures Is not hypoxic at this time (4) Urinary tract infection: Urinalysis is abnormal but patient has chronic indwelling Bernal catheter Do not suspect she needs treatment for UTI at this time however is on antibiotics as above for cellulitis Follow urine culture, blood cultures Bernla catheter just exchanged on 03/05 and daughter reports that she gets her catheter exchanged monthly-she would be due then for an exchange on 03/12 (5) Type 2 diabetes mellitus with other circulatory complications: Hemoglobin A1c 8.0% in 11/2020 With significant hyperglycemia here On high doses of NPH 70/30 3 times daily as an outpatient -Consult pharmacy -Start Lantus 15 units twice daily and use NovoLog supplemental insulin Check hemoglobin A1c: 9.2 (6) Anemia: Has been mildly low in the past but is normal for the last year and a half (7) Asthma: No acute issues Continue rescue inhalers as needed (8) Atrial flutter, paroxysmal: In sinus rhythm here Follow on telemetry Continue apixaban, atenolol (9) CAD (coronary artery disease): Noted to be nonobstructive on remote cath Troponin negative here, no acute issues (10) Chronic interstitial cystitis: Continue methenamine, has chronic indwelling Bernal catheter Continue amitriptyline Is also on chronic tramadol as needed (11) Depression with anxiety: Pretty significant and follows with psychiatry, Dr. Mckenzie as an outpatient Is on numerous psychiatric medications to include amitriptyline, doxepin, duloxetine, Haldol as needed, lorazepam, mirtazapine, and sertraline Was also recently put on diphenhydramine to help with itching-hold this With polypharmacy-discussed with patient and her daughter, she has been tried to reduce her medications with PCP and has been unsuccessful (12) GERD (gastroesophageal reflux disease): Continue pantoprazole daily, Pepcid (13) History of pulmonary embolism: Is on Eliquis for atrial flutter as above (14) Hypertension: Blood pressure is mildly elevated here Continue home atenolol -Diuresing as above with Bumex (15) Hypothyroidism: TSH 4.4 in 09/2020 Is on very high dose of levothyroxine May have difficulty with absorption due to bowel edema from significant volume overload Follow TSH in the morning (16) Insomnia: Severe, reports she only sleeps from 11:30 PM to 3:30 in the morning every night Continue home medications as per psychiatry (17) Incomplete bladder emptying: With Bernal catheter in place Is on Myrbetriq-this may be able to be stopped unless it is being used for bladder spasm (18) YARI (obstructive sleep apnea): Continue CPAP although she reports she has been noncompliant with this at home Ordered for here and she is willing to use it (19) Osteoporosis: Noted (20) DVT prophylaxis: Apixaban Disposition-admit to medical floor with telemetry DNR/DNI as per my discussion with patient, daughter is in agreement Admission and Anticipated Discharge Date Admission Date: March 11, 2021 Subjective Patient continues to be every short of breath when she moves. Her daughter is at bedside and is updated. Review of Systems Review of Systems: All systems reviewed & are unremarkable except as noted in HPI & below Physical Exam Physical Exam: Constitutional: WD/WN, vitals as above + morbidly obese; no acute distress Eyes: PERRL, conjunctivae normal, anicteric sclerae ENMT: external ear and nose normal, oropharynx normal Neck: trachea midline, no thyromegaly Respiratory: normal respiratory effort; no cough Auscultation: + wheezes (upper airway with forced expiration); no rhonchi Cardiovascular: Rate/Rhythm: regular rate and regular rhythm Heart Sounds: no murmur Extremities: + edema (2-3+ pitting edema in the lower extremities bilaterally to the knees) Chest (Breasts): Chest: normal inspection of chest Gastrointestinal (Abdomen): normal bowel sounds, soft, nontender, no hepatosplenomegaly Musculoskeletal: Extremities: no cyanosis and no clubbing Skin: + decreased erythema (Right leg from mid tibia to ankle anteriorly, mild pink venous stasis LLE) Neurologic: moves all extremities and awake; no focal motor deficits Psychiatric: A+Ox3, euthymic affect Genitourinary: Bernal catheter in place draining yellow-greenish urine with some sediment, no hematuria Results & Data Results & Data ([facility]) Vital Signs (Past 12 Hours) Vital Signs Temp Pulse Pulse Resp BP Pulse Ox 03/12/21 19:22 37.0 C 110 H 20 169/93 H 95 03/12/21 16:00 106 H 03/12/21 15:00 36.5 C 89 19 132/61 94 03/12/21 14:21 94 03/12/21 12:06 36.8 C 103 H 20 122/66 91 PG Care Time/CCT Total # of Minutes Spent Total Time Spent with Patient: Total time spent is greater than 50% in coordination of care (as documented) at patient's floor/unit and/or counseling patient: Coding Level of Care Code 50291 Subseq Hosp Care Lvl 3 Diagnoses Cellulitis L03.90 Chronic diastolic congestive heart failure I50.32 Pneumonia J18.9 Laterality: unspecified laterality Lung location: unspecified part of lung Pneumonia type: due to unspecified organism Urinary tract infection N39.0 Hematuria presence: without hematuria Urinary tract infection type: site unspecified Type 2 diabetes mellitus with other circulatory complications E11.59 Anemia D64.9 Asthma J45.909 Atrial flutter, paroxysmal I48.92 CAD (coronary artery disease) I25.10 Associated angina: without angina Coronary Disease-Associated Artery/Lesion type: [place] artery [place] vs. transplanted heart: [place] heart Chronic interstitial cystitis N30.10 Depression with anxiety F41.8 GERD (gastroesophageal reflux disease) K21.9 History of pulmonary embolism Z86.711 Hypertension I10 Hypertension type: essential hypertension Hypothyroidism E03.9 Insomnia G47.00 Incomplete bladder emptying R33.9 YARI (obstructive sleep apnea) G47.33 Osteoporosis M81.0 DVT prophylaxis Z29.9 Time Spent (min) 35 (1) Urinary tract infection Hematuria presence: without hematuria Urinary tract infection type: site unspecified Qualified Code(s): N39.0 - Urinary tract infection, site not specified (2) CAD (coronary artery disease) Associated angina: without angina Coronary Disease-Associated Artery/Lesion type: [place] artery [place] vs. transplanted heart: [place] heart Qualified Code(s): I25.10 - Atherosclerotic heart disease of [place] coronary artery without angina pectoris (3) Hypertension Hypertension type: essential hypertension Qualified Code(s): I10 - Essential (primary) hypertension (4) Pneumonia Laterality: unspecified laterality Lung location: unspecified part of lung Pneumonia type: due to unspecified organism Qualified Code(s): J18.9 - Pneumonia, unspecified organism
[2021-03-13] MEDS: RESTASIS~ORDER AWAITING ACTION SCH ×4 (01:36→23:45)
[2021-03-13] MEDS: INSULIN ASPART 100 UNITS/ML 3 ML PEN SC SCH ×5 (04:03→21:03)
[2021-03-13] MEDS: POLYETHYLENE (MIRALAX) 17 GM PACK PO PRN (05:26)
[2021-03-13] MEDS: PIPERACILLIN/TAZOBACTAM 4.5 GM in DEXTROSE 5% 100 ML IV SCH ×3 (05:26→22:07)
[2021-03-13] MEDS: LEVOTHYROXINE SODIUM 125 MCG TABLET PO SCH (05:26)
[2021-03-13 07:44] LABS: Basophils # (auto) 0.01 K/uL (0-0.2); Basophils % (auto) 0.1 %; Eosinophils # (auto) 1.23 K/uL (0-0.5); Eosinophils % (auto) 9.7 %; Hematocrit (blood only) 34.7 % (37-47); Hemoglobin 11.6 g/dL (12.0-16.0); Immature Granulocytes % (auto) 0.8 %; Lymphocytes # (auto) 1.21 K/uL (1.2-3.4); Lymphocytes % (auto) 9.6 %; Mean Corpuscular Hemoglobin 29.7 pg (25-34); Mean Corpuscular Hgb Conc 33.4 g/dL (32-36); Mean Corpuscular Volume 88.7 fL (80-100); Mean Platelet Volume 9.9 fL (7.4-10.4); Monocytes # (auto) 0.86 K/uL (0.11-0.59); Monocytes % (auto) 6.8 %; Neutrophils # (auto) 9.23 K/uL (1.4-6.5); Platelet Count 225 K/uL (130-400); RDW Coefficient of Variation 14.8 % (11.5-14.5); Red Blood Count 3.91 M/uL (4.2-5.4); White Blood Count 12.64 K/uL (4.8-10.8)
[2021-03-13 08:09] LABS: BUN Creatinine Ratio 15.3 (10-20); Calcium 8.4 mg/dl (8.5-10.1); Creatinine Clr Calc Pharmacy 64.2 ml/min; Est GFR (African American) 70.9 ml/min; Est GFR (Non-African American) 61.2 ml/min; Potassium 3.7 mmol/L (3.5-5.1)
[2021-03-13] MEDS: BUMETANIDE 1 MG in SYRINGE 0 ML IV SCH ×2 (08:49→17:38)
[2021-03-13] MEDS: AMITRIPTYLINE HCL 25 MG TAB PO SCH (08:49)
[2021-03-13] MEDS: CALCIUM 600MG + VIT D 400 IU TAB PO SCH ×2 (08:49→20:52)
[2021-03-13] MEDS: APIXABAN 5 MG TABLET PO SCH ×2 (08:49→20:53)
[2021-03-13] MEDS: ATENOLOL 25 MG TABLET PO SCH (08:49)
[2021-03-13] MEDS: DOXEPIN HCL 10 MG CAPSULE PO SCH (08:50)
[2021-03-13] MEDS: CETIRIZINE HCL 10 MG TABLET PO SCH (08:50)
[2021-03-13] MEDS: CHOLECALCIFEROL 1,000 UNITS 25 MCG TAB PO SCH (08:50)
[2021-03-13] MEDS: FAMOTIDINE 20 MG TAB PO SCH ×2 (08:51→20:53)
[2021-03-13] MEDS: FERROUS SULFATE 325 MG TAB PO SCH (08:51)
[2021-03-13] MEDS: DULoxetine HCL 60 MG CAP PO SCH ×2 (08:51→20:54)
[2021-03-13] MEDS: GABAPENTIN 300 MG CAP PO SCH ×3 (08:51→20:54)
[2021-03-13] MEDS: guaiFENesin 600 MG TABCR PO SCH ×2 (08:51→20:54)
[2021-03-13] MEDS: PANTOprazole 40 MG TAB PO SCH (08:52)
[2021-03-13] MEDS: SERTRALINE HCL 100 MG TABLET PO SCH (08:52)
[2021-03-13] MEDS: MULTIVITAMIN TAB PO SCH (08:52)
[2021-03-13] MEDS: MIRABEGRON ER 25 MG TAB PO SCH (08:52)
[2021-03-13] MEDS: ACETAMINOPHEN 500 MG TAB PO PRN (08:52)
[2021-03-13] MEDS: POTASSIUM CHLORIDE CRTAB 20 MEQ TABCR PO SCH ×2 (08:52→17:39)
[2021-03-13] MEDS: traMADol HCL 50 MG TABLET PO PRN (08:53)
[2021-03-13] MEDS: INSULIN GLARGINE SOLOSTAR 100 UNITS/ML 3 ML PEN SC SCH ×2 (09:04→21:05)
--- NOTE | 2021-03-13 10:25 | XRay Report ---
SINGLE VIEW CHEST CLINICAL HISTORY: Wheezing. FINDINGS: An AP, portable, upright chest radiograph is compared to study dated 03/11/2021 and correlat ed with chest CT dated 04/06/2010. The examination is degraded by portable technique and apical positi oning. The heart is enlarged. There is prominence of the pulmonary vasculature. Chronic interstitial thickening is similar to previous. There is bibasilar scarring/atelectasis. No large pleural effusio n or pneumothorax is seen. The skeletal structures are osteopenic. The bony thorax is grossly intact. Advanced degenerative change is seen in the shoulders and thoracic spine. IMPRESSION: 1. Cardiomegaly with prominence of the pulmonary vasculature. Correlate clinically for evidence of co ngestive failure. 2. No airspace consolidation or large pleural effusion is identified. ACT 112: Negative or not required by law. Electronically signed by: Jimbo Vázquez M.D. 03/13/2021 10:24 AM
[2021-03-13] MEDS: LORazepam 0.5 MG TAB PO SCH (12:18)
--- NOTE | 2021-03-13 12:59 | Pulmonary Consultation ---
Date of Consultation March 13, 2021 Assessment & Plan (1) Dyspnea: (2) Abnormal PFT: (3) Hypercapnic respiratory failure: (4) Obesity hypoventilation syndrome: Impression: 80-year-old female with dyspnea which is likely multifactorial due to combinations of morbid obesity, deconditioning, sedentary lifestyle, potential restrictive lung disease due to body habitus, obesity hypoventilation syndrome, and diastolic heart failure. Recommendations: 1. Would recommend proceeding with CT scan of the chest given the patient's normal BMP to evaluate for potential interstitial lung disease. Do not think she needs contrast at this point time. Suspicion for PE is very low given her anticoagulated state. 2. Patient does have elevated eosinophils. Its possible that she may have an asthma variant. Outpatient PFTs are recommended. We will check IgE level. Can assess sputum for eosinophils as well. Outpatient assessment of exhaled nitric oxide may also be beneficial. Depending on results, she may benefit from allergy immunology evaluation. 3. Would recommend a formal exercise program with structured weight loss. Referral to the weight loss management center may be appropriate 4. Continued optimization of the patient's blood pressure and diastolic dysfunction. Would try and target a systolic blood pressure less than 125/75. Patient has been fairly hypertensive throughout her hospitalization. Additional changes will be deferred to the patient's primary care provider. 5. Patient does not require antibiotics from a pulmonary standpoint. If these need to be continued for other extrapulmonary issues, that can be addressed with the patient's primary admitting service. 6. We will add Breo to her regimen to see if this offers her a clinical benefit. 7. Continued nightly CPAP is recommended. Her elevated CO2 level is adequately compensated currently but certainly could be contributing to some shortness of breath and intermittent hypoxemia. We did need to review her outpatient CPAP compliance data including estimated AHI to document whether or not her current settings are adequate or whether or not repeat polysomnography is required. This can be done in the outpatient setting. Patient asked about going home. Once the CT scan is done and she is on me dications that seems reasonable. We would be happy to follow her in the outpatient setting. History of Present Illness Attending Physician: Glen Baeza History of Present Illness Asked by hospitalist to evaluate this patient with shortness of breath. History is obtained from review of electronic medical record as well as interview the patient at bedside. This 80-year-old morbidly obese female has a history of sleep disordered breathing. She has been followed previously by over 8 or 9 years ago. She was brought to the hospital on March 11 with cough and shortness of breath on exertion which apparently was progressive over the last several weeks. She reportedly had an outside chest x-ray showing "fluid around the lungs". Reportedly she was hypoxemic prior to evaluation here however she is never been hypoxemic during her hospitalization. The patient has endorsed some unintentional weight loss. She leads a very sedentary lifestyle. She reports that she is short of breath with any significant activity. Her last PFTs were performed in back in 2012 and showed a nonspecific pattern. Patient feels like she wheezes occasionally. She is fully anticoagulating using apixaban for a prior history of DVTs and PEs. She states she has a CPAP unit and uses it at home. We do not have a compliance data available to review. Allergies Allergy/AdvReac Type Severity Reaction Status Date / Time KODAK Inhibitors Allergy Unknown Unknown Verified 03/11/21 15:21 benson Allergy Unknown Unknown Verified 03/11/21 15:21 grass pollen Allergy Unknown Unknown Verified 03/11/21 15:21 miconazole [From Monistat 3] Allergy Unknown Unknown Verified 03/11/21 15:21 perfume Allergy Unknown Unknown Verified 03/11/21 15:21 skin cleanser combination Allergy Unknown Unknown Verified 03/11/21 15:21 no.17 [From Monistat 3] quetiapine [From Seroquel] AdvReac Intermediate Night Verified 03/11/21 15:21 terrors Home Medications Medication Instructions Recorded Confirmed Type Restasis 1 drp OPB BID 05/16/18 03/11/21 History acetaminophen [Tylenol Extra 1,000 mg PO Q8 PRN 05/16/18 03/11/21 History Strength] donepezil 5 mg PO HS 05/16/18 03/11/21 History duloxetine 60 mg PO BID 05/16/18 03/11/21 History guaifenesin [Mucinex] 600 mg PO Q12H PRN 05/16/18 03/11/21 History polyethylene glycol 3350 [Miralax] 17 g PO DAILY PRN 05/16/18 03/11/21 History Systane Gel 1 drp OPB HS 12/12/18 03/11/21 History ferrous sulfate [Iron (ferrous 1 tab PO 3XWK 01/20/19 03/11/21 History sulfate)] methenamine hippurate 1 gram tablet 1 g PO QPM #90 tab 03/12/20 03/11/21 Rx melatonin 10 mg capsule 10 mg PO HS 04/22/20 03/11/21 History pen needle, diabetic, safety 30 #200 ea 05/06/20 03/11/21 Rx gauge x 1/3" conjugated estrogens 0.625 mg/gram 1 applic TOPICAL 3XWK #30 gm 06/27/20 03/11/21 Rx vaginal cream ketoconazole 1 ea TOPICAL 2XWK 07/06/20 03/11/21 History lorazepam 0.5 mg PO QDL 07/06/20 03/11/21 History peg 400-propylene glycol [Systane 1 drp OPHTHALMIC (EYE) TID 07/06/20 03/11/21 History Ultra] nystatin 100,000 unit/gram topical 1 applic TOPICAL BID #60 gm 08/04/20 03/11/21 Rx powder tamsulosin 0.4 mg capsule 0.4 mg PO HS #90 cap 08/11/20 03/11/21 Rx levothyroxine 125 mcg tablet 250 mcg PO QAM #180 tab 08/12/20 03/11/21 Rx mirtazapine 45 mg PO HS 09/20/20 03/11/21 History triamcinolone acetonide 1 applic TOPICAL BID PRN 09/20/20 03/11/21 History vitamin B complex 1 tab PO DAILY 09/20/20 03/11/21 History albuterol sulfate 90 mcg/actuation 2 puff INHALATION Q4 PRN #18 g 09/29/20 03/11/21 Rx aerosol inhaler atenolol 25 mg tablet 25 mg PO DAILY #90 tab 09/29/20 03/11/21 Rx nystatin-triamcinolone 100,000 1 applic TOP TID #30 g 10/07/20 03/11/21 Rx unit/gram-0.1 % topical ointment blood sugar diagnostic #180 ea 11/10/20 03/11/21 Rx diphenhydramine HCl 25 mg capsule 25 mg PO TID PRN cap 11/19/20 03/11/21 History famotidine 20 mg tablet 20 mg PO BID #180 tab 11/25/20 03/11/21 Rx insulin NPH-regular 70-30 U-100 See Rx Instructions SQ TIDM #15 ml 12/15/20 03/11/21 Rx insulin 100 unit/mL subcutaneous pen tramadol 50 mg tablet 50 mg PO Q12H PRN #60 tab 12/15/20 03/11/21 Rx bumetanide 1 mg tablet 1 mg PO DAILY #90 tab 12/17/20 03/11/21 Rx apixaban 5 mg tablet 5 mg PO BID #180 tab 01/08/21 03/11/21 Rx lancets 30 gauge #200 ea 02/23/21 03/11/21 Rx montelukast 10 mg tablet 10 mg PO QPM #90 tab 02/23/21 03/11/21 Rx gabapentin 300 mg capsule 300 mg PO TID #90 cap 03/02/21 03/11/21 Rx mirabegron 50 mg tablet,extended 50 mg PO DAILY #90 tab 03/02/21 03/11/21 Rx release 24 hr amitriptyline 25 mg PO QAM 03/11/21 03/11/21 History amitriptyline 50 mg PO QPM 03/11/21 03/11/21 History calcium carbonate-vitamin D3 1 tab PO BID 03/11/21 03/11/21 History [Calcium + D] cetirizine [Zyrtec] 10 mg PO DAILY 03/11/21 03/11/21 History diclofenac sodium 2 g TOPICAL QID PRN 03/11/21 03/11/21 History doxepin 10 mg PO DAILY 03/11/21 03/11/21 History glucosamine-chondroitin 1,500 tab PO QAM 03/11/21 03/11/21 History haloperidol [Haldol] 5 mg PO DAILY 03/11/21 03/11/21 History ipratropium bromide [Atrovent HFA] 2 puff INHALATION QID PRN 03/11/21 03/11/21 History loperamide [Imodium A-D] 1 mg PO DAILY PRN 03/11/21 03/11/21 History lorazepam 1 mg PO HS 03/11/21 03/11/21 History magnesium hydroxide [Milk of 15 - 30 ml PO DAILY PRN 03/11/21 03/11/21 History Magnesia] minocycline 100 mg PO BID 03/11/21 03/11/21 History multivitamin 1 tab PO QAM 03/11/21 03/11/21 History pantoprazole 40 mg PO QAM 03/11/21 03/11/21 History potassium chloride 40 meq PO BID 03/11/21 03/11/21 History sertraline 100 mg PO QAM 03/11/21 03/11/21 History Patient History Medical History Acute metabolic encephalopathy Allergic rhinitis Anemia Arthritis Asthma Atherosclerotic heart disease of [place] coronary artery without angina pectoris Atrial flutter, paroxysmal Balance disorder Basal pneumonia of both lungs BMI 45.0-49.9, adult Bowel incontinence Bulging lumbar disc CAD (coronary artery disease) Cardiac valve prolapse Cellulitis of lower leg Chronic constipation Chronic hyponatremia Chronic interstitial cystitis Chronic vulvitis Confusion Cystocele, midline Depression with anxiety Diabetes Diabetes with neurologic complications Diabetic peripheral neuropathy Diabetic peripheral neuropathy associated with type 2 diabetes mellitus Diastolic CHF, acute on chronic Dry eye syndrome of both lacrimal glands Edema Foot deformity Foot deformity, bilateral Foot pain Gait disturbance Gastroparesis GERD (gastroesophageal reflux disease) Hematuria, microscopic History of intestinal obstruction History of pulmonary embolism History of rotator cuff tear Hyperlipidemia Hypertension Hypomagnesemia Hyponatremia Hypothyroidism Incomplete bladder emptying Incontinence Insomnia Irritable bowel syndrome Knee pain, bilateral Loss of sensation Lymphedema Memory loss Migraine headache YARI (obstructive sleep apnea) Peripheral vascular disease Pessary maintenance Post-menopausal atrophic vaginitis Pulmonary embolism Rectocele Rotator cuff tendonitis Sepsis Skin ulcer Squamous cell carcinoma of skin TIA (transient ischemic attack) Type 2 diabetes mellitus with other circulatory complications Urge and stress incontinence UTI (urinary tract infection) UTI (urinary tract infection) Venous insufficiency Wears dentures Surgical History Cataract H/O oral surgery History of knee replacement History of mandibular surgery repair of mandible with endosteal implant History of surgery lysis of intestinal adhesions History of total hysterectomy Family History Father Diabetes Prostate cancer Colon cancer Colorectal cancer Mother Diabetes Heart disease Brother Acute myocardial infarction Family/Other Cancer Colorectal cancer sibling Hypertension Denies family history of Ovarian cancer Crohn's disease Breast cancer Social History Smoking Status: Former smoker Tobacco Type: Cigarettes Smoking End Date: over 30 years ago; Second Hand Exposure: No; Do You Dip or Chew Tobacco: No; Tobacco Cessation Education Requested by Patient: No Hx Alcohol Use: No Hx Substance Use: No Preferred Language: Vietnamese Communication Ability: Effective Visual Impairment: No Limitations Hearing Ability: Normal Hand Cultivator Required: No Beliefs That Will Affect Care: None marital status: / Current Living Situation: Personal Care Facility Current Living Situation Comment: [facility] current occupational status: retired How many Children do You have: 2 Other Information That Helps Us Care for You: No Feels Safe at Home: Yes Safety Concerns: Feels Safe At This Time Childhood Exposure to Second-Hand Smoke: No Dental Care, Regularly: Yes Physical Activity Frequency: Does not Exercise Seatbelt Use: always Sunscreen Use: Yes Assistive Devices: Walker Review of Systems Review of Systems: Please refer to admission H&P. No additions or deletions. Results & Data Results & Data ([facility]) Vital Signs (Past 12 Hours) Vital Signs Temp Pulse Pulse Resp BP Pulse Ox 03/13/21 08:36 36.8 C 99 H 22 142/84 H 93 03/13/21 06:20 97 H 03/13/21 03:17 37.0 C 99 H 20 149/85 H 92 Laboratory Results 03/13/21 07:11 03/13/21 07:11 Eosinophils have been anywhere between 7 and 9%. Blood gas performed on the was a venous study and showed a pH of 7.39 with a CO2 of 57. Hemoglobin A1c of 9.2 Initial lactate 1.4 Troponin negative CRP 12 Procalcitonin negative on 2 occasions Diagnostic Findings Imaging studies were independently reviewed. Chest x-ray from today demonstrated pulmonary vascular congestion with low lung volumes. These appear slightly worse compared to prior x-ray from 09/20/[address] scan was performed back in 2009. PFTs not been performed in almost 8 years. Prior sleep study demonstrated mild sleep disordered breathing with an AHI of 10 although that was performed back in 2012 as well PG Care Time/CCT Total # of Minutes Spent Total Time Spent with Patient: Total time spent is greater than 50% in coordination of care (as documented) at patient's floor/unit and/or counseling patient: Coding Level of Care Code 42855 Initial Inpt Care Lvl 3 Diagnoses Dyspnea R06.00 Abnormal PFT R94.2 Hypercapnic respiratory failure J96.92 Obesity hypoventilation syndrome E66.2
--- NOTE | 2021-03-13 13:43 | Pharmacy Report ---
Pharmacy Glycemic Short Note 2 - Date of Service March 13, 2021 - Glycemic Short BSG Results (Last 24 hours): 03/12/21 03/12/21 03/12/21 16:32 20:28 23:55 Glucose POC Glucose 128 H 215 H 256 H 03/13/21 03/13/21 03/13/21 04:01 07:11 07:55 Glucose 159 H POC Glucose 131 H 177 H 03/13/21 11:30 Glucose POC Glucose 219 H OUTPATIENT ANTIDIABETIC REGIMEN: * Novolin 70/30 pre-mixed insulin 30 units with breakfast + 20 units with lunch + 30 units with dinner * A1c = 8% on 11/19/20 * A1c = 9.2% on 03/12/21 ASSESSMENT: 03/13 * Fasting 177 mg/dL, blood sugars overall seem to be trending downward * Will continue current regimen as BSGs continue to improve 03/12 * 80yo T2DM female maintained on large outpatient doses of pre-mixed insulin * Outpatient regimen is premixed basal/prandial insulin of Novolin 70/30 mix insulin. * Pre-mixed insulin is difficult to titrate since it is already in a fixed distribution of basal:prandial insulin. Continuing pre-mixed insulin for admission typically lead to hypoglycemia d/t changing PO status but rapid acting insulin is unable to be held. * Home regimen will be held for admission per pharmacy consult. Will utilize r ecommended regimen of SQ basal bolus insulin regimen with Lantus + NovoLog (CF+CR) * Pt A1c is elevated and she does take her insulin as Rx. She feels that she needs more insulin and has been gaining weight. Will increase to ~120units/day and re-distribute into 50:50% regimen of basal:prandial and titrate based on BSG trends PLAN FOR INPATIENT GLYCEMIC CONTROL: * Hold outpatient oral diabetes medications * Basal insulin * Lantus 30-50 units SQ BID based on BSG * Bolus insulin * NovoLog per scale ACHS or Q6hrs while NPO * Goal Range: Low 110 mg/dL - High 140 mg/dL * Correction Factor: 10 mg/dL/unit * Nutritional / Prandial insulin per carb ratio of 1 unit per 3 grams CHO consumed PLAN FOR DISCHARGE: * Titrate outpatient insulin dosing to achieve goal A1c < 8.5% * Pt feels that she needs more insulin at ok. A1c is elevated and patient is gaining weight. Will update insulin dosing recs based on inpatient trends.
[2021-03-13] MEDS: FLUTICASONE/VILANTEROL 100/25MCG 14 PUFFS/INHALER INH SCH (14:32)
--- NOTE | 2021-03-13 14:48 | CT Scan Report ---
CT SCAN OF THE CHEST WITHOUT IV CONTRAST CLINICAL HISTORY: Wheezing. Abnormal chest x-ray. COMPARISON STUDY: Chest CT dated 04/06/2010. Chest x-ray dated 03/13/2021. TECHNIQUE: CT scan of the thorax was performed from the thoracic inlet to the upper abdomen. Images are reviewed in the axial, sagittal, and coronal planes. IV contrast was not administered for this ex amination as per the referring clinician. A dose lowering technique was utilized adhering to the joseph saucedo of [place]. CT DOSE: 814.78 mGy.cm FINDINGS: Thyroid: Atrophic. Thoracic aorta: There is mild atherosclerotic calcification of the thoracic aorta, which is normal in caliber and demonstrates standard 3-vessel arch anatomy. Heart: The heart is normal in size and without pericardial effusion. Lungs and pleural spaces: There is no airspace consolidation typical for pneumonia or pleural effusio n. Subpleural reticulation is seen throughout both lungs. The trachea and central airways are clear. Foci of scarring/atelectasis are noted at the lung bases. There is no traction bronchiectasis or misa ycombing. A 7 mm nodule in the lingula on image #154 has modestly increased in size dating back to 10. There is nodular thickening along the left major fissure. Mild diffuse peribronchial thickening i s noted. Mediastinum: There is no mediastinal lymphadenopathy. Paulette: Not well assessed without IV contrast. Axillae: There is no axillary lymphadenopathy. Upper abdomen: There is a small hiatal hernia. Partially visualized upper abdominal viscera is otherw ise within normal limits. Skeletal structures: The skeletal structures are osteopenic. There is chronic posttraumatic deformity of the sternum. Spondylotic change is seen throughout the thoracic spine. Advanced arthritic change is seen in the shoulders. There are healed bilateral rib fractures. No lytic or blastic bony lesions are seen. IMPRESSION: 1. Chronic parenchymal changes as above with no airspace consolidation or pleural effusion. 2. A 7 mm pulmonary nodule in the lingula has only modestly increased in size dating back to 2009. Th is is of low suspicion. 3. Mild diffuse peribronchial thickening suggests bronchitis/reactive airway disease. Clinical correl ation will be required. 4. Additional findings as above. ACT 112: Negative or not required by law. Electronically signed by: Jimbo Vázquez M.D. 03/13/2021 2:47 PM
[2021-03-13] MEDS: DONEPEZIL HCL 5 MG TAB PO SCH (20:53)
[2021-03-13] MEDS: AMITRIPTYLINE HCL 50 MG TAB PO SCH (20:53)
[2021-03-13] MEDS: MIRTAZAPINE SOLTAB 15 MG PO SCH (20:55)
[2021-03-13] MEDS: TAMSULOSIN HCL 0.4 MG CAP PO SCH (20:55)
[2021-03-13] MEDS: LORazepam 1 MG TAB PO SCH (20:55)
[2021-03-13] MEDS: MONTELUKAST SODIUM 10 MG TABLET PO SCH (21:43)
--- NOTE | 2021-03-13 22:25 | Hospitalist Progress Note ---
Date of Service March 13, 2021 Assessment & Plan (1) Cellulitis: Presents with low-grade fever, worsening swelling and erythema of the right leg, tachycardia, leukocytosis. No open wounds Cellulitis likely exacerbated with lower extremity edema At this point, do not feel patient has CHF. However will continue to treat with antibiotics. Has a history of Pseudomonas UTIs -Admit to medical floor with telemetry -Continue IV Zosyn -Follow blood cultures -Follow cellulitis clinically, keep limb elevated when possible. In the past, she has refused compression stockings as per her daughter and previous notes reviewed in the chart will hold compression stocking until cellulitis has been treated. Will continue to diurese to help with the fluid retention. Patient has been having a net negative fluid over past day. (2) Chronic diastolic congestive heart failure: Patient does appear to have some right sided heart failure, she will likely benefit from some further diuresis given her weight, however, not completely sure this is the main culrpit. Her wheezing could be multifactorial with being obese, ad perhaps having some underlying lung issue. She is going to see Dr. Ferris as an outpatient. Family is requesting a consult with Dr. Ferris while she is here. With volume overload-she is up 30 kg of body weight since last year and 13 kg of body weight in the last 6 months Last echocardiogram 2018 with elevated right-sided pressures and preserved EF Given history of YARI, morbid obesity, most likely secondary to diastolic and right-sided heart failure proBNP is normal but could be in the setting of morbid obesity and right-sided failure With significant lower extremity edema, rales on examination, weight gain -Diuresed with IV Bumex 1 mg twice daily -Hold home p.o. Bumex -Follow BMP -Daily weights, I's and O's, low-sodium diet, and fluid restrict to 1500 mL daily -Does follow with [facility] cardiology if consultation desired (3) Pneumonia: With productive cough, fever, tachycardia, leukocytosis as above-chest x- ray with possible left lower lobe infiltrate, but this may just be from pulmonary edema and not necessarily pneumonia. Other findings may be from her cellulitis as above. However, will treat with antibiotics as above Follow blood cultures Is not hypoxic at this time (4) Urinary tract infection: Urinalysis is abnormal but patient has chronic indwelling Bernal catheter Do not suspect she needs treatment for UTI at this time however is on antibiotics as above for cellulitis Follow urine culture, blood cultures Bernal catheter just exchanged on 03/05 and daughter reports that she gets her catheter exchanged monthly-she would be due then for an exchange on 03/12 (5) Type 2 diabetes mellitus with other circulatory complications: Hemoglobin A1c 8.0% in 11/2020 With significant hyperglycemia here On high doses of NPH 70/30 3 times daily as an outpatient -Consult pharmacy -Start Lantus 15 units twice daily and use NovoLog supplemental insulin Check hemoglobin A1c: 9.2 (6) Anemia: Has been mildly low in the past but is normal for the last year and a half (7) Asthma: No acute issues Continue rescue inhalers as needed (8) Atrial flutter, paroxysmal: In sinus rhythm here Follow on telemetry Continue apixaban, atenolol (9) CAD (coronary artery disease): Noted to be nonobstructive on remote cath Troponin negative here, no acute issues (10) Chronic interstitial cystitis: Continue methenamine, has chronic indwelling Bernal catheter Continue amitriptyline Is also on chronic tramadol as needed (11) Depression with anxiety: Pretty significant and follows with psychiatry, Dr. Mckenzie as an outpatient Is on numerous psychiatric medications to include amitriptyline, doxepin, duloxetine, Haldol as needed, lorazepam, mirtazapine, and sertraline Was also recently put on diphenhydramine to help with itching-hold this With polypharmacy-discussed with patient and her daughter, she has been tried to reduce her medications with PCP and has been unsuccessful (12) GERD (gastroesophageal reflux disease): Continue pantoprazole daily, Pepcid (13) History of pulmonary embolism: Is on Eliquis for atrial flutter as above (14) Hypertension: Blood pressure is mildly elevated here Continue home atenolol -Diuresing as above with Bumex (15) Hypothyroidism: TSH 4.4 in 09/2020 Is on very high dose of levothyroxine May have difficulty with absorption due to bowel edema from significant volume overload Follow TSH in the morning (16) Insomnia: Severe, reports she only sleeps from 11:30 PM to 3:30 in the morning every night Continue home medications as per psychiatry (17) Incomplete bladder emptying: With Bernal catheter in place Is on Myrbetriq-this may be able to be stopped unless it is being used for bladder spasm (18) YARI (obstructive sleep apnea): Continue CPAP although she reports she has been noncompliant with this at home Ordered for here and she is willing to use it (19) Osteoporosis: Noted (20) DVT prophylaxis: Apixaban Disposition-admit to medical floor with telemetry DNR/DNI as per my discussion with patient, daughter is in agreement Admission and Anticipated Discharge Date Admission Date: March 11, 2021 Subjective Patient reports no new symptoms today. She reports breathing better. Review of Systems Review of Systems: All systems reviewed & are unremarkable except as noted in HPI & below Physical Exam Physical Exam: Constitutional: WD/WN, vitals as above + morbidly obese; no acute distress Eyes: PERRL, conjunctivae normal, anicteric sclerae ENMT: external ear and nose normal, oropharynx normal Neck: trachea midline, no thyromegaly Respiratory: normal respiratory effort; no cough Auscultation: + wheezes (upper airway with forced expiration); no rhonchi Cardiovascular: Rate/Rhythm: regular rate and regular rhythm Heart Sounds: no murmur Extremities: + edema (2-3+ pitting edema in the lower extremities bilaterally to the knees) Chest (Breasts): Chest: normal inspection of chest Gastrointestinal (Abdomen): normal bowel sounds, soft, nontender, no hepatosplenomegaly Musculoskeletal: Extremities: no cyanosis and no clubbing Skin: + decreased erythema (Right leg from mid tibia to ankle anteriorly, mild pink venous stasis LLE) Neurologic: moves all extremities and awake; no focal motor deficits Psychiatric: A+Ox3, euthymic affect Genitourinary: Bernal catheter in place draining yellow-greenish urine with some sediment, no hematuria Results & Data Results & Data ([facility]) Vital Signs (Past 12 Hours) Vital Signs Temp Pulse Pulse Resp BP Pulse Ox 03/13/21 19:23 36.8 C 99 H 20 119/75 94 03/13/21 16:16 36.6 C 99 H 22 110/95 92 03/13/21 15:04 96 H 03/13/21 14:30 36.5 C 86 22 123/76 94 PG Care Time/CCT Total # of Minutes Spent Total Time Spent with Patient: Total time spent is greater than 50% in coordination of care (as documented) at patient's floor/unit and/or counseling patient: Coding Level of Care Code 56416 Subseq Hosp Care Lvl 2 Diagnoses Cellulitis L03.90 Chronic diastolic congestive heart failure I50.32 Pneumonia J18.9 Laterality: unspecified laterality Lung location: unspecified part of lung Pneumonia type: due to unspecified organism Urinary tract infection N39.0 Hematuria presence: without hematuria Urinary tract infection type: site unspecified Type 2 diabetes mellitus with other circulatory complications E11.59 Anemia D64.9 Asthma J45.909 Atrial flutter, paroxysmal I48.92 CAD (coronary artery disease) I25.10 Associated angina: without angina Coronary Disease-Associated Artery/Lesion type: [place] artery [place] vs. transplanted heart: [place] heart Chronic interstitial cystitis N30.10 Depression with anxiety F41.8 GERD (gastroesophageal reflux disease) K21.9 History of pulmonary embolism Z86.711 Hypertension I10 Hypertension type: essential hypertension Hypothyroidism E03.9 Insomnia G47.00 Incomplete bladder emptying R33.9 YARI (obstructive sleep apnea) G47.33 Osteoporosis M81.0 DVT prophylaxis Z29.9 Time Spent (min) 25 (1) Urinary tract infection Hematuria presence: without hematuria Urinary tract infection type: site unspecified Qualified Code(s): N39.0 - Urinary tract infection, site not specified (2) CAD (coronary artery disease) Associated angina: without angina Coronary Disease-Associated Artery/Lesion type: [place] artery [place] vs. transplanted heart: [place] heart Qualified Code(s): I25.10 - Atherosclerotic heart disease of [place] coronary artery wit hout angina pectoris (3) Hypertension Hypertension type: essential hypertension Qualified Code(s): I10 - Essential (primary) hypertension (4) Pneumonia Laterality: unspecified laterality Lung location: unspecified part of lung Pneumonia type: due to unspecified organism Qualified Code(s): J18.9 - Pneumonia, unspecified organism
[2021-03-14] MEDS: LEVOTHYROXINE SODIUM 125 MCG TABLET PO SCH (06:00)
[2021-03-14] MEDS: PIPERACILLIN/TAZOBACTAM 4.5 GM in DEXTROSE 5% 100 ML IV SCH ×3 (06:01→21:58)
[2021-03-14] MEDS: RESTASIS~ORDER AWAITING ACTION SCH ×2 (06:51→13:37)
[2021-03-14] MEDS: ATENOLOL 25 MG TABLET PO SCH (08:10)
[2021-03-14] MEDS: AMITRIPTYLINE HCL 25 MG TAB PO SCH (08:10)
[2021-03-14] MEDS: APIXABAN 5 MG TABLET PO SCH ×2 (08:10→20:48)
[2021-03-14] MEDS: DOXEPIN HCL 10 MG CAPSULE PO SCH (08:11)
[2021-03-14] MEDS: FAMOTIDINE 20 MG TAB PO SCH ×2 (08:11→20:49)
[2021-03-14] MEDS: CHOLECALCIFEROL 1,000 UNITS 25 MCG TAB PO SCH (08:11)
[2021-03-14] MEDS: DULoxetine HCL 60 MG CAP PO SCH ×2 (08:11→20:47)
[2021-03-14] MEDS: BUMETANIDE 1 MG in SYRINGE 0 ML IV SCH ×2 (08:11→17:33)
[2021-03-14] MEDS: CALCIUM 600MG + VIT D 400 IU TAB PO SCH ×2 (08:11→20:48)
[2021-03-14] MEDS: SERTRALINE HCL 100 MG TABLET PO SCH (08:11)
[2021-03-14] MEDS: POTASSIUM CHLORIDE CRTAB 20 MEQ TABCR PO SCH ×2 (08:11→17:37)
[2021-03-14] MEDS: INSULIN ASPART 100 UNITS/ML 3 ML PEN SC SCH ×4 (08:11→20:50)
[2021-03-14] MEDS: GABAPENTIN 300 MG CAP PO SCH ×3 (08:11→20:47)
[2021-03-14] MEDS: MULTIVITAMIN TAB PO SCH (08:11)
[2021-03-14] MEDS: PANTOprazole 40 MG TAB PO SCH (08:11)
[2021-03-14] MEDS: INSULIN GLARGINE SOLOSTAR 100 UNITS/ML 3 ML PEN SC SCH ×2 (08:11→20:49)
[2021-03-14] MEDS: guaiFENesin 600 MG TABCR PO SCH ×2 (08:11→20:48)
[2021-03-14] MEDS: CETIRIZINE HCL 10 MG TABLET PO SCH (08:11)
[2021-03-14] MEDS: MIRABEGRON ER 25 MG TAB PO SCH (08:11)
[2021-03-14] MEDS: FLUTICASONE/VILANTEROL 100/25MCG 14 PUFFS/INHALER INH SCH (08:13)
[2021-03-14 08:33] LABS: Hematocrit (blood only) 34.7 % (37-47); Hemoglobin 11.6 g/dL (12.0-16.0); Mean Corpuscular Hemoglobin 30.4 pg (25-34); Mean Corpuscular Hgb Conc 33.4 g/dL (32-36); Mean Corpuscular Volume 90.8 fL (80-100); Mean Platelet Volume 9.6 fL (7.4-10.4); Platelet Count 273 K/uL (130-400); RDW Coefficient of Variation 14.7 % (11.5-14.5); RDW Standard Deviation 48.9 fL (36.4-46.3); Red Blood Count 3.82 M/uL (4.2-5.4); White Blood Count 12.58 K/uL (4.8-10.8)
[2021-03-14 08:50] LABS: BUN Creatinine Ratio 13.9 (10-20); Calcium 8.3 mg/dl (8.5-10.1); Creatinine Clr Calc Pharmacy 64.2 ml/min; Est GFR (African American) 70.9 ml/min; Est GFR (Non-African American) 61.2 ml/min; Potassium 4.1 mmol/L (3.5-5.1)
--- NOTE | 2021-03-14 08:54 | Pulmonology Progress Note ---
Date of Service March 14, 2021 Assessment & Plan (1) Dyspnea: (2) Abnormal PFT: (3) Hypercapnic respiratory failure: (4) Obesity hypoventilation syndrome: Impression: 80-year-old female with dyspnea which is likely multifactorial due to combinations of morbid obesity, deconditioning, sedentary lifestyle, potential restrictive lung disease due to body habitus, obesity hypoventilation syndrome, and diastolic heart failure. Her CT scan did demonstrate some chronic airway thickening and given her elevated eosinophil counts, possibility of obstructive lung disease is raised. She does feel better on Breo. Recommendations: 1. CT scan concerning for bronchial wall thickening. Continue Breo. The 7 mm nodule requires no additional radiographic surveillance as it is minimally increased over 10 years. 2. Patient does have elevated eosinophils. Its possible that she may have an asthma variant. Outpatient PFTs are recommended. IgE level pending. Outpatient assessment of exhaled nitric oxide may also be beneficial. Depending on results, she may benefit from allergy immunology evaluation. 3. Would recommend a formal exercise program with structured weight loss. Referral to the weight loss management center may be appropriate 4. Continued optimization of the patient's blood pressure and diastolic dysfunction. Would try and target a systolic blood pressure less than 125/75. Patient has been fairly hypertensive throughout her hospitalization. Additional changes will be deferred to the patient's primary care provider. 5. Patient does not require antibiotics from a pulmonary standpoint. If these need to be continued for other extrapulmonary issues, that can be addressed with the patient's primary admitting service. 6. Continued nightly CPAP is recommended. Her elevated CO2 level is adequately compensated currently but certainly could be contributing to some shortness of breath and intermittent hypoxemia. We did need to review her outpatient CPAP compliance data including estimated AHI to document whether or not her current settings are adequate or whether or not repeat polysomnography is required. This can be done in the outpatient setting. There is no additional work-up that needs to be conducted as an inpatient from a pulmonary standpoint. Disposition is deferred to the patient's hospitalist. Pulmonary will sign off at this point time. Again I would be happy to see this patient in the outpatient clinic if needed. Please call if we can be of additional assistance Admission and Anticipated Discharge Date Admission Date: March 11, 2021 Subjective Patient seen and examined. She is unclear why she is seeing a residential worker that she states she has no breathing problems. We started her on Advair yesterday. She feels she is wheezing less today. She again denies respiratory issues and asks about when she can be dismissed from the hospital and go home. Review of Systems Review of Systems: All systems reviewed & are unremarkable except as noted in HPI & below Physical Exam Constitutional: WD/WN, vitals as above + morbidly obese; no acute distress Eyes: PERRL, conjunctivae normal, anicteric sclerae ENMT: external ear and nose normal, oropharynx normal Neck: trachea midline, no thyromegaly Respiratory: normal respiratory effort; no cough Auscultation: + crackles (bibasilar) and + wheezes (upper airway with forced expiration); no rhonchi Cardiovascular: Rate/Rhythm: regular rate and regular rhythm Heart Sounds: no murmur Extremities: + edema (2-3+ pitting edema in the lower extremities bilaterally to the knees) Chest (Breasts): Chest: normal inspection of chest Gastrointestinal (Abdomen): normal bowel sounds, soft, nontender, no hepatosplenomegaly Musculoskeletal: Extremities: no cyanosis and no clubbing Skin: + erythema (Right leg from mid tibia to ankle anteriorly, mild pink venous stasis LLE) Neurologic: moves all extremities and awake; no focal motor deficits Psychiatric: A+Ox3, euthymic affect Genitourinary: Bernal catheter in place draining yellow urine with some sediment, no hematuria Results & Data Results & [facility] ([facility]) Vital Signs (Past 12 Hours) Vital Signs Temp Pulse Pulse Resp BP Pulse Ox 03/14/21 08:05 36.6 C 103 H 18 122/77 91 03/14/21 07:30 89 03/14/21 05:33 113 H 03/14/21 03:50 36.7 C 93 H 18 145/96 H 91 03/13/21 23:00 36.8 C 97 H 18 153/87 H 92 03/13/21 22:51 26 H 95 Laboratory Results 03/14/21 08:10 03/14/21 08:[address] of the chest was independently reviewed. CT SCAN OF THE CHEST WITHOUT IV CONTRAST CLINICAL HISTORY: Wheezing. Abnormal chest x-ray. COMPARISON STUDY: Chest CT dated 04/06/2010. Chest x-ray dated 03/13/2021. TECHNIQUE: CT scan of the thorax was performed from the thoracic inlet to the upper abdomen. Images are reviewed in the axial, sagittal, and coronal planes. IV contrast was not administered for this examination as per the referring clinician. A dose lowering technique was utilized adhering to the principles of ALARA. CT DOSE: 814.78 mGy.cm FINDINGS: Thyroid: Atrophic. Thoracic aorta: There is mild atherosclerotic calcification of the thoracic aorta, which is normal in caliber and demonstrates standard 3-vessel arch anatomy. Heart: The heart is normal in size and without pericardial effusion. Lungs and pleural spaces: There is no airspace consolidation typical for pneumonia or pleural effusion. Subpleural reticulation is seen throughout both lungs. The trachea and central airways are clear. Foci of scarring/atelectasis are noted at the lung bases. There is no traction bronchiectasis or honeycombing. A 7 mm nodule in the lingula on image #154 has modestly increased in size dating back to 2009. There is nodular thickening along the left major fissure. Mild diffuse peribronchial thickening is noted. Mediastinum: There is no mediastinal lymphadenopathy. Paulette: Not well assessed without IV contrast. Axillae: There is no axillary lymphadenopathy. Upper abdomen: There is a small hiatal hernia. Partially visualized upper abdominal viscera is otherwise within normal limits. Skeletal structures: The skeletal structures are osteopenic. There is chronic posttraumatic deformity of the sternum. Spondylotic change is seen throughout the thoracic spine. Advanced arthritic change is seen in the shoulders. There are healed bilateral rib fractures. No lytic or blastic bony lesions are seen. IMPRESSION: 1. Chronic parenchymal changes as above with no airspace consolidation or pleural effusion. 2. A 7 mm pulmonary nodule in the lingula has only modestly increased in size dating back to 2009. This is of low suspicion. 3. Mild diffuse peribronchial thickening suggests bronchitis/reactive airway disease. Clinical correlation will be required. 4. Additional findings as above. PG Care Time/CCT Total # of Minutes Spent Total Time Spent with Patient: Total time spent is greater than 50% in coor dination of care (as documented) at patient's floor/unit and/or counseling patient: Coding Level of Care Code 55365 Subseq Hosp Care Lvl 3 Diagnoses Dyspnea R06.00 Abnormal PFT R94.2 Hypercapnic respiratory failure J96.92 Obesity hypoventilation syndrome E66.2 Time Spent (min) 35
[2021-03-14] MEDS: LORazepam 0.5 MG TAB PO SCH (12:26)
[2021-03-14] MEDS ORDERED: diphenhydrAMINE Capsule 25 MG CAP PO ONE (15:58)
[2021-03-14] MEDS: POLYETHYLENE (MIRALAX) 17 GM PACK PO PRN (18:19)
[2021-03-14] MEDS: DONEPEZIL HCL 5 MG TAB PO SCH (20:47)
[2021-03-14] MEDS: LORazepam 1 MG TAB PO SCH (20:47)
[2021-03-14] MEDS: AMITRIPTYLINE HCL 50 MG TAB PO SCH (20:48)
[2021-03-14] MEDS: MIRTAZAPINE SOLTAB 15 MG PO SCH (20:49)
[2021-03-14] MEDS: TAMSULOSIN HCL 0.4 MG CAP PO SCH (20:49)
[2021-03-14] MEDS: MONTELUKAST SODIUM 10 MG TABLET PO SCH (20:54)
--- NOTE | 2021-03-14 22:14 | Hospitalist Progress Note ---
Date of Service March 14, 2021 Assessment & Plan (1) Cellulitis: Presents with low-grade fever, worsening swelling and erythema of the right leg, tachycardia, leukocytosis. No open wounds Cellulitis likely exacerbated with lower extremity edema At this point, do not feel patient has CHF. However will continue to treat with antibiotics. Has a history of Pseudomonas UTIs -Admit to medical floor with telemetry -Continue IV Zosyn -Follow cellulitis clinically, keep limb elevated when possible. In the past, she has refused compression stockings as per her daughter and previous notes reviewed in the chart will hold compression stocking until cellulitis has been treated. Will continue to diurese to help with the fluid retention. Patient has been having a net negative fluid over past day. (2) Chronic diastolic congestive heart failure: Patient does appear to have some right sided heart failure, she will likely benefit from some further diuresis given her weight, however, not completely sure this is the main culrpit. Her wheezing could be multifactorial with being obese, ad perhaps having some underlying lung issue. She is going to see Dr. Ferris as an outpatient. Family is requesting a consult with Dr. Ferris while she is here This was completed. Appreciate inpuit from pulmonary. With volume overload-she is up 30 kg of body weight since last year and 13 kg of body weight in the last 6 months Last echocardiogram 2018 with elevated right-sided pressures and preserved EF Given history of YARI, morbid obesity, most likely secondary to diastolic and right-sided heart failure proBNP is normal but could be in the setting of morbid obesity and right-sided failure With significant lower extremity edema, rales on examination, weight gain -Diuresed with IV Bumex 1 mg twice daily -Hold home p.o. Bumex -Follow BMP -Daily weights, I's and O's, low-sodium diet, and fluid restrict to 1500 mL daily -Does follow with [facility] cardiology if consultation desired (3) Pneumonia: With productive cough, fever, tachycardia, leukocytosis as above-chest x- ray with possible left lower lobe infiltrate, but this may just be from pulmonary edema and not necessarily pneumonia. Other findings may be from her cellulitis as above. However, will treat with antibiotics as above Follow blood cultures Is not hypoxic at this time (4) Urinary tract infection: Urinalysis is abnormal but patient has chronic indwelling Bernal catheter Do not suspect she needs treatment for UTI at this time however is on antibiotics as above for cellulitis Follow urine culture, blood cultures Bernal catheter just exchanged on 03/05 and daughter reports that she gets her catheter exchanged monthly-she would be due then for an exchange on 03/12 (5) Type 2 diabetes mellitus with other circulatory complications: Hemoglobin A1c 8.0% in 11/2020 With significant hyperglycemia here On high doses of NPH 70/30 3 times daily as an outpatient -Consult pharmacy -Start Lantus 15 units twice daily and use NovoLog supplemental insulin Check hemoglobin A1c: 9.2 (6) Anemia: Has been mildly low in the past but is normal for the last year and a half (7) Asthma: No acute issues Continue rescue inhalers as needed (8) Atrial flutter, paroxysmal: In sinus rhythm here Follow on telemetry Continue apixaban, atenolol (9) CAD (coronary artery disease): Noted to be nonobstructive on remote cath Troponin negative here, no acute issues (10) Chronic interstitial cystitis: Continue methenamine, has chronic indwelling Bernal catheter Continue amitriptyline Is also on chronic tramadol as needed (11) Depression with anxiety: Pretty significant and follows with psychiatry, Dr. Mckenzie as an outpatient Is on numerous psychiatric medications to include amitriptyline, doxepin, duloxetine, Haldol as needed, lorazepam, mirtazapine, and sertraline Was also recently put on diphenhydramine to help with itching-hold this With polypharmacy-discussed with patient and her daughter, she has been tried to reduce her medications with PCP and has been unsuccessful (12) GERD (gastroesophageal reflux disease): Continue pantoprazole daily, Pepcid (13) History of pulmonary embolism: Is on Eliquis for atrial flutter as above (14) Hypertension: Blood pressure is mildly elevated here Continue home atenolol -Diuresing as above with Bumex (15) Hypothyroidism: TSH 4.4 in 09/2020 Is on very high dose of levothyroxine May have difficulty with absorption due to bowel edema from significant volume overload Follow TSH in the morning (16) Insomnia: Severe, reports she only sleeps from 11:30 PM to 3:30 in the morning every night Continue home medications as per psychiatry (17) Incomplete bladder emptying: With Bernal catheter in place Is on Myrbetriq-this may be able to be stopped unless it is being used for bladder spasm (18) YARI (obstructive sleep apnea): Continue CPAP although she reports she has been noncompliant with this at home Ordered for here and she is willing to use it (19) Osteoporosis: Noted (20) DVT prophylaxis: Apixaban Disposition-admit to medical floor with telemetry DNR/DNI as per my discussion with patient, daughter is in agreement Admission and Anticipated Discharge Date Admission Date: March 11, 2021 Subjective Patient reports being close to her baseline. Review of Systems Review of Systems: All systems reviewed & are unremarkable except as noted in HPI & below Physical Exam Physical Exam: Constitutional: WD/WN, vitals as above + morbidly obese; no acute distress Eyes: PERRL, conjunctivae normal, anicteric sclerae ENMT: external ear and nose normal, oropharynx normal Neck: trachea midline, no thyromegaly Respiratory: normal respiratory effort; no cough Auscultation:decreased wheezing, no rhonchi Cardiovascular: Rate/Rhythm: regular rate and regular rhythm Heart Sounds: no murmur Extremities: + edema (2-3+ pitting edema in the lower extremities bilaterally to the knees) Chest (Breasts): Chest: normal inspection of chest Gastrointestinal (Abdomen): normal bowel sounds, soft, nontender, no hepatosplenomegaly Musculoskeletal: Extremities: no cyanosis and no clubbing Skin: + decreased erythema (Right leg from mid tibia to ankle anteriorly, mild pink venous stasis LLE) Neurologic: moves all extremities and awake; no focal motor deficits Psychiatric: A+Ox3, euthymic affect Genitourinary: Bernal catheter in place draining yellow urine,, no hematuria Results & Data Results & [facility] ([facility]) Vital Signs (Past 12 Hours) Vital Signs Temp Pulse Pulse Resp BP Pulse Ox 03/14/21 19:19 36.7 C 96 H 20 160/92 H 91 03/14/21 15:47 97 H 03/14/21 15:38 36.5 C 94 H 22 125/80 91 03/14/21 12:53 36.5 C 95 H 20 149/84 H 91 PG Care Time/CCT Total # of Minutes Spent Total Time Spent with Patient: Total time spent is greater than 50% in coordination of care (as documented) at patient's floor/unit and/or counseling patient: Coding Level of Care Code 94026 Subseq Hosp Care Lvl 2 Diagnoses Cellulitis L03.90 Chronic diastolic congestive heart failure I50.32 Pneumonia J18.9 Laterality: unspecified laterality Lung location: unspecified part of lung Pneumonia type: due to unspecified organism Urinary tract infection N39.0 Hematuria presence: without hematuria Urinary tract infection type: site unspecified Type 2 diabetes mellitus with other circulatory complications E11.59 Anemia D64.9 Asthma J45.909 Atrial flutter, paroxysmal I48.92 CAD (coronary artery disease) I25.10 Associated angina: without angina Coronary Disease-Associated Artery/Lesion type: [place] artery [place] vs. transplanted heart: [place] heart Chronic interstitial cystitis N30.10 Depression with anxiety F41.8 GERD (gastroesophageal reflux disease) K21.9 History of pulmonary embolism Z86.711 Hypertension I10 Hypertension type: essential hypertension Hypothyroidism E03.9 Insomnia G47.00 Incomplete bladder emptying R33.9 YARI (obstructive sleep apnea) G47.33 Osteoporosis M81.0 DVT prophylaxis Z29.9 Time Spent (min) 25 (1) Urinary tract infection Hematuria presence: without hematuria Urinary tract infection type: site unspecified Qualified Code(s): N39.0 - Urinary tract infection, site not specified (2) CAD (coronary artery disease) Associated angina: without angina Coronary Disease-Associated Artery/Lesion type: [place] artery [place] vs. transplanted heart: [place] heart Qualified Code(s): I25.10 - Atherosclerotic heart disease of [place] coronary artery without angina pectoris (3) Hypertension Hypertension type: essential hypertension Qualified Code(s): I10 - Essential (primary) hypertension (4) Pneumonia Laterality: unspecified laterality Lung location: unspecified part of lung Pneumonia type: due to unspecified organism Qualified Code(s): J18.9 - Pneumonia, unspecified organism
[2021-03-15] MEDS: RESTASIS~ORDER AWAITING ACTION SCH ×3 (00:13→15:26)
[2021-03-15] MEDS: PIPERACILLIN/TAZOBACTAM 4.5 GM in DEXTROSE 5% 100 ML IV SCH ×3 (06:22→21:09)
[2021-03-15] MEDS: LEVOTHYROXINE SODIUM 125 MCG TABLET PO SCH (06:22)
[2021-03-15] MEDS: AMITRIPTYLINE HCL 25 MG TAB PO SCH (08:25)
[2021-03-15] MEDS: BUMETANIDE 1 MG in SYRINGE 0 ML IV SCH ×2 (08:25→17:21)
[2021-03-15] MEDS: CETIRIZINE HCL 10 MG TABLET PO SCH (08:26)
[2021-03-15] MEDS: CHOLECALCIFEROL 1,000 UNITS 25 MCG TAB PO SCH (08:26)
[2021-03-15] MEDS: SERTRALINE HCL 100 MG TABLET PO SCH (08:26)
[2021-03-15] MEDS: DOXEPIN HCL 10 MG CAPSULE PO SCH (08:26)
[2021-03-15] MEDS: MIRABEGRON ER 25 MG TAB PO SCH (08:26)
[2021-03-15] MEDS: CALCIUM 600MG + VIT D 400 IU TAB PO SCH ×2 (08:27→21:02)
[2021-03-15] MEDS: APIXABAN 5 MG TABLET PO SCH ×2 (08:27→21:01)
[2021-03-15] MEDS: ATENOLOL 25 MG TABLET PO SCH (08:27)
[2021-03-15] MEDS: DULoxetine HCL 60 MG CAP PO SCH ×2 (08:27→21:01)
[2021-03-15] MEDS: GABAPENTIN 300 MG CAP PO SCH ×3 (08:27→21:01)
[2021-03-15] MEDS: guaiFENesin 600 MG TABCR PO SCH ×2 (08:28→21:01)
[2021-03-15] MEDS: FLUTICASONE/VILANTEROL 100/25MCG 14 PUFFS/INHALER INH SCH (08:28)
[2021-03-15] MEDS: FAMOTIDINE 20 MG TAB PO SCH ×2 (08:28→21:01)
[2021-03-15] MEDS: MULTIVITAMIN TAB PO SCH (08:28)
[2021-03-15] MEDS: PANTOprazole 40 MG TAB PO SCH (08:28)
[2021-03-15] MEDS: INSULIN ASPART 100 UNITS/ML 3 ML PEN SC SCH ×4 (08:29→21:03)
[2021-03-15] MEDS: INSULIN GLARGINE SOLOSTAR 100 UNITS/ML 3 ML PEN SC SCH ×2 (08:31→21:02)
[2021-03-15] MEDS: POTASSIUM CHLORIDE CRTAB 20 MEQ TABCR PO SCH ×2 (09:57→17:35)
[2021-03-15] MEDS: ALBUTEROL HFA 8 GM INHALER INH PRN ×3 (10:10→22:15)
[2021-03-15] MEDS: LORazepam 0.5 MG TAB PO SCH (13:13)
[2021-03-15 16:15] LABS: Basophils # (auto) 0.02 K/uL (0-0.2); Basophils % (auto) 0.2 %; Eosinophils # (auto) 1.15 K/uL (0-0.5); Eosinophils % (auto) 9.1 %; Hematocrit (blood only) 38.1 % (37-47); Hemoglobin 12.6 g/dL (12.0-16.0); Immature Granulocytes # (auto) 0.17 K/uL (0.00-0.02); Immature Granulocytes % (auto) 1.3 %; Lymphocytes # (auto) 1.23 K/uL (1.2-3.4); Lymphocytes % (auto) 9.7 %; Mean Corpuscular Hgb Conc 33.1 g/dL (32-36); Mean Corpuscular Volume 90.7 fL (80-100); Mean Platelet Volume 9.6 fL (7.4-10.4); Monocytes # (auto) 0.59 K/uL (0.11-0.59); Monocytes % (auto) 4.7 %; Neutrophils # (auto) 9.52 K/uL (1.4-6.5); Platelet Count 330 K/uL (130-400); RDW Coefficient of Variation 14.5 % (11.5-14.5); RDW Standard Deviation 48.7 fL (36.4-46.3); White Blood Count 12.68 K/uL (4.8-10.8)
[2021-03-15 16:57] LABS: BUN Creatinine Ratio 15.6 (10-20); Creatinine Clr Calc Pharmacy 54.3 ml/min; Est GFR (African American) 58.8 ml/min; Est GFR (Non-African American) 50.7 ml/min
[2021-03-15] MEDS ORDERED: diphenhydrAMINE 50 MG/ML VIAL IV STA (20:24)
[2021-03-15] MEDS: MIRTAZAPINE SOLTAB 15 MG PO SCH (21:00)
[2021-03-15] MEDS: LORazepam 1 MG TAB PO SCH (21:00)
[2021-03-15] MEDS: MONTELUKAST SODIUM 10 MG TABLET PO SCH (21:00)
[2021-03-15] MEDS: TAMSULOSIN HCL 0.4 MG CAP PO SCH (21:00)
[2021-03-15] MEDS: DONEPEZIL HCL 5 MG TAB PO SCH (21:02)
[2021-03-15] MEDS: AMITRIPTYLINE HCL 50 MG TAB PO SCH (21:10)
--- NOTE | 2021-03-15 23:45 | Hospitalist Progress Note ---
Date of Service March 15, 2021 Assessment & Plan (1) Cellulitis: Presents with low-grade fever, worsening swelling and erythema of the right leg, tachycardia, leukocytosis. No open wounds Cellulitis likely exacerbated with lower extremity edema At this point, do not feel patient has CHF. However will continue to treat with antibiotics. Has a history of Pseudomonas UTIs -Admit to medical floor with telemetry -Continue IV Zosyn -Follow cellulitis clinically, keep limb elevated when possible. In the past, she has refused compression stockings as per her daughter and previous notes reviewed in the chart will hold compression stocking until cellulitis has been treated. Will continue to diurese to help with the fluid retention. Patient has been having a net negative fluid over past day. Patient is now over 4 liters net negative, however she has been feeling dizzy. Creatinine has slightly bumped. Will hold PM dose of diuretic and monitor. Cont antibiotics. (2) Chronic diastolic congestive heart failure: Patient does appear to have some right sided heart failure, she will likely benefit from some further diuresis given her weight, however, not completely sure this is the main culrpit. Her wheezing could be multifactorial with being obese, as well as having some underlying lung issue. She is going to see Dr. Ferris as an outpatient. Family is requesting a consult with Dr. Ferris while she is here This was completed. Appreciate inpuit from pulmonary. Breo was started. Wheezing has improved. Input from admission noted below: With volume overload-she is up 30 kg of body weight since last year and 13 kg of body weight in the last 6 months Last echocardiogram 2018 with elevated right-sided pressures and preserved EF Given history of YARI, morbid obesity, most likely secondary to diastolic and right-sided heart failure proBNP is normal but could be in the setting of morbid obesity and right-sided failure With significant lower extremity edema, rales on examination, weight gain -Diuresed with IV Bumex 1 mg twice daily -Hold home p.o. Bumex -Follow BMP -Daily weights, I's and O's, low-sodium diet, and fluid restrict to 1500 mL daily -Does follow with [facility] cardiology if consultation desired (3) Pneumonia: With productive cough, fever, tachycardia, leukocytosis as above-chest x- ray with possible left lower lobe infiltrate, but this may just be from pulmonary edema and not necessarily pneumonia. Other findings may be from her cellulitis as above. However, will treat with antibiotics as above Follow blood cultures Is not hypoxic at this time (4) Urinary tract infection: Urinalysis is abnormal but patient has chronic indwelling Bernal catheter Do not suspect she needs treatment for UTI at this time however is on antibiotics as above for cellulitis Follow urine culture, blood cultures Bernal catheter just exchanged on 03/05 and daughter reports that she gets her catheter exchanged monthly-she would be due then for an exchange on 03/12 (5) Type 2 diabetes mellitus with other circulatory complications: Hemoglobin A1c 8.0% in 11/2020 With significant hyperglycemia here On high doses of NPH 70/30 3 times daily as an outpatient -Consult pharmacy -Start Lantus 15 units twice daily and use NovoLog supplemental insulin Check hemoglobin A1c: 9.2 (6) Anemia: Has been mildly low in the past but is normal for the last year and a half (7) Asthma: No acute issues Continue rescue inhalers as needed (8) Atrial flutter, paroxysmal: In sinus rhythm here Follow on telemetry Continue apixaban, atenolol (9) CAD (coronary artery disease): Noted to be nonobstructive on remote cath Troponin negative here, no acute issues (10) Chronic interstitial cystitis: Continue methenamine, has chronic indwelling Bernal catheter Continue amitriptyline Is also on chronic tramadol as needed (11) Depression with anxiety: Pretty significant and follows with psychiatry, Dr. Mckenzie as an outpatient Is on numerous psychiatric medications to include amitriptyline, doxepin, duloxetine, Haldol as needed, lorazepam, mirtazapine, and sertraline Was also recently put on diphenhydramine to help with itching-hold this With polypharmacy-discussed with patient and her daughter, she has been tried to reduce her medications with PCP and has been unsuccessful (12) GERD (gastroesophageal reflux disease): Continue pantoprazole daily, Pepcid (13) History of pulmonary embolism: Is on Eliquis for atrial flutter as above (14) Hypertension: Blood pressure is mildly elevated here Continue home atenolol -Diuresing as above with Bumex (15) Hypothyroidism: TSH 4.4 in 09/2020 Is on very high dose of levothyroxine May have difficulty with absorption due to bowel edema from significant volume overload TSH here is 4.6 (16) Insomnia: Severe, reports she only sleeps from 11:30 PM to 3:30 in the morning every night Continue home medications as per psychiatry (17) Incomplete bladder emptying: With Bernal catheter in place Is on Myrbetriq-this may be able to be stopped unless it is being used for bladder spasm (18) YARI (obstructive sleep apnea): Continue CPAP although she reports she has been noncompliant with this at home Ordered for here and she is willing to use it (19) Osteoporosis: Noted (20) DVT prophylaxis: Apixaban Disposition-admit to medical floor with telemetry DNR/DNI as per my discussion with patient, daughter is in agreement Updated Son Elver Rivero on the phone on 03/15 Admission and Anticipated Discharge Date Admission Date: March 11, 2021 Subjective Patient reports feeling better. She is not at baseline. Still having mild trouble breathing. Also felt dizzy when standing up. Review of Systems Review of Systems: All systems reviewed & are unremarkable except as noted in HPI & below Physical Exam Physical Exam: Constitutional: WD/WN, vitals as above + morbidly obese; no acute distress Eyes: PERRL, conjunctivae normal, anicteric sclerae ENMT: external ear and nose normal, oropharynx normal Neck: trachea midline, no thyromegaly Respiratory: normal respiratory effort; no cough Auscultation:decreased wheezing, no rhonchi Cardiovascular: Rate/Rhythm: regular rate and regular rhythm Heart Sounds: no murmur Extremities: + edema ( pitting edema has decreased in the lower extremities bilaterally to the knees) Chest (Breasts): Chest: normal inspection of chest Gastrointestinal (Abdomen): normal bowel sounds, soft, nontender, no hepatosplenomegaly Musculoskeletal: Extremities: no cyanosis and no clubbing Skin: + decreased erythema (Right leg from mid tibia to ankle anteriorly, mild pink venous stasis LLE) Only right leg is mildly tender but not warm to touch. Neurologic: moves all extremities and awake; no focal motor deficits Psychiatric: A+Ox3, euthymic affect Genitourinary: Bernal catheter in place draining yellow urine,, no hematuria Results & Data Results & [facility] ([facility]) Vital Signs (Past 12 Hours) Vital Signs Temp Pulse Pulse Resp BP Pulse Ox 03/15/21 22:36 37 C 94 H 20 126/74 93 03/15/21 22:26 22 93 03/15/21 22:15 100 H 22 93 03/15/21 19:10 36.5 C 94 H 20 96/59 L 98 03/15/21 18:18 101 H 19 96 03/15/21 17:20 95 H 127/83 96 03/15/21 15:03 37.2 C 90 22 148/86 H 93 03/15/21 14:41 91 H 03/15/21 12:09 36.4 C L 98 H 20 133/79 92 PG Care Time/CCT Total # of Minutes Spent Total Time Spent with Patient: Total time spent is greater than 50% in coordination of care (as documented) at patient's floor/unit and/or counseling patient: Coding Level of Care Code 16351 Subseq Hosp Care Lvl 3 Diagnoses Cellulitis L03.90 Chronic diastolic congestive heart failure I50.32 Pneumonia J18.9 Laterality: unspecified laterality Lung location: unspecified part of lung Pneumonia type: due to unspecified organism Urinary tract infection N39.0 Hematuria presence: without hematuria Urinary tract infection type: site unspecified Type 2 diabetes mellitus with other circulatory complications E11.59 Anemia D64.9 Asthma J45.909 Atrial flutter, paroxysmal I48.92 CAD (coronary artery disease) I25.10 Associated angina: without angina Coronary Disease-Associated Artery/Lesion type: [place] artery [place] vs. transplanted heart: [place] heart Chronic interstitial cystitis N30.10 Depression with anxiety F41.8 GERD (gastroesophageal reflux disease) K21.9 History of pulmonary embolism Z86.711 Hypertension I10 Hypertension type: essential hypertension Hypothyroidism E03.9 Insomnia G47.00 Incomplete bladder emptying R33.9 YARI (obstructive sleep apnea) G47.33 Osteoporosis M81.0 DVT prophylaxis Z29.9 Time Spent (min) 35 Comment updated family on phone, discussion with patient on discharge plan (1) Urinary tract infection Hematuria presence: without hematuria Urinary tract infection type: site unspecified Qualified Code(s): N39.0 - Urinary tract infection, site not specified (2) CAD (coronary artery disease) Associated angina: without angina Coronary Disease-Associated Artery/Lesion type: [place] artery [place] vs. transplanted heart: [place] heart Qualified Code(s): I25.10 - Atherosclerotic heart disease of [place] coronary artery without angina pectoris (3) Hypertension Hypertension type: essential hypertension Qualified Code(s): I10 - Essential (primary) hypertension (4) Pneumonia Laterality: unspecified laterality Lung location: unspecified part of lung Pneumonia type: due to unspecified organism Qualified Code(s): J18.9 - Pneumonia, unspecified organism
[2021-03-16] MEDS: RESTASIS~ORDER AWAITING ACTION SCH ×3 (00:14→15:03)
[2021-03-16] MEDS: PIPERACILLIN/TAZOBACTAM 4.5 GM in DEXTROSE 5% 100 ML IV SCH ×2 (06:08→14:14)
[2021-03-16] MEDS: LEVOTHYROXINE SODIUM 125 MCG TABLET PO SCH (06:09)
[2021-03-16] MEDS: FERROUS SULFATE 325 MG TAB PO SCH (08:18)
[2021-03-16] MEDS: GABAPENTIN 300 MG CAP PO SCH ×3 (08:19→22:12)
[2021-03-16] MEDS: ATENOLOL 25 MG TABLET PO SCH (08:19)
[2021-03-16] MEDS: SERTRALINE HCL 100 MG TABLET PO SCH (08:19)
[2021-03-16] MEDS: DULoxetine HCL 60 MG CAP PO SCH ×2 (08:19→22:13)
[2021-03-16] MEDS: APIXABAN 5 MG TABLET PO SCH ×2 (08:19→22:13)
[2021-03-16] MEDS: MIRABEGRON ER 25 MG TAB PO SCH (08:19)
[2021-03-16] MEDS: CHOLECALCIFEROL 1,000 UNITS 25 MCG TAB PO SCH (08:20)
[2021-03-16] MEDS: PANTOprazole 40 MG TAB PO SCH (08:20)
[2021-03-16] MEDS: MULTIVITAMIN TAB PO SCH (08:20)
[2021-03-16] MEDS: CALCIUM 600MG + VIT D 400 IU TAB PO SCH ×2 (08:20→22:14)
[2021-03-16] MEDS: FAMOTIDINE 20 MG TAB PO SCH ×2 (08:20→22:16)
[2021-03-16] MEDS: DOXEPIN HCL 10 MG CAPSULE PO SCH (08:20)
[2021-03-16] MEDS: CETIRIZINE HCL 10 MG TABLET PO SCH (08:20)
[2021-03-16] MEDS: AMITRIPTYLINE HCL 25 MG TAB PO SCH (08:21)
[2021-03-16] MEDS: FLUTICASONE/VILANTEROL 100/25MCG 14 PUFFS/INHALER INH SCH (08:21)
[2021-03-16] MEDS: guaiFENesin 600 MG TABCR PO SCH ×2 (08:21→22:11)
[2021-03-16] MEDS: INSULIN ASPART 100 UNITS/ML 3 ML PEN SC SCH ×4 (08:23→22:07)
[2021-03-16] MEDS: INSULIN GLARGINE SOLOSTAR 100 UNITS/ML 3 ML PEN SC SCH (08:25)
[2021-03-16] MEDS: POTASSIUM CHLORIDE CRTAB 20 MEQ TABCR PO SCH ×2 (08:38→17:29)
--- NOTE | 2021-03-16 09:52 | Hospitalist Progress Note ---
Date of Service March 16, 2021 Assessment & Plan (1) Cellulitis: Presents with low-grade fever, worsening swelling and erythema of the right leg, tachycardia, leukocytosis. No open wounds Cellulitis likely exacerbated with lower extremity edema skin is red, but not hot, mild tenderness IV site went bad, change to Augmentin and monitor clinical improvement In the past, she has refused compression stockings as per her daughter and previous notes reviewed in the chart will hold compression stocking until cellulitis has been treated. Will continue to diurese to help with the fluid retention. Cr is 1.0, resume Bumex 2mg PO qAM, K is 3.9 daily weights, still up about 5kg from previous baseline and appears volume overloaded (2) Chronic diastolic congestive heart failure: Patient does appear to have some right sided heart failure, she will likely benefit from some further diuresis given her weight, however, not completely sure this is the main culrpit. Her wheezing could be multifactorial with being obese, as well as having some underlying lung issue. She is going to see Dr. Ferris as an outpatient. Family is requesting a consult with Dr. Ferris while she is here This was completed. Appreciate inpuit from pulmonary. Breo was started. Wheezing has improved. With volume overload-she is up 30 kg of body weight since last year and 13 kg of body weight in the last 6 months Last echocardiogram 2018 with elevated right-sided pressures and preserved EF Given history of YARI, morbid obesity, most likely secondary to diastolic and right-sided heart failure proBNP is normal but could be in the setting of morbid obesity and right-sided failure will resume Bumex but at 2mg PO qAM and monitor renal function still about 5kg above prior baseline weight keep in hospital additional 1-2 days to see if we can diurese further and watch kidney function (3) Pneumonia: With productive cough, fever, tachycardia, leukocytosis as above-chest x- ray with possible left lower lobe infiltrate, but this may just be from pulmonary edema and not necessarily pneumonia. Other findings may be from her cellulitis as above. has a dry cough but breathing comfortably difficult to rule out pneumonia but feel that cellulitis and volume overload are more likely her issues continue Augmentin for cellulitis that will cover lungs as well (4) Urinary tract infection: Urinalysis is abnormal but patient has chronic indwelling Bernal catheter Do not suspect she needs treatment for UTI at this time however is on antibiotics as above for cellulitis Follow urine culture, blood cultures Bernal catheter just exchanged on 03/05 and daughter reports that she gets her catheter exchanged monthly-she would be due then for an exchange on 03/12 (5) Type 2 diabetes mellitus with other circulatory complications: Hemoglobin A1c 8.0% in 11/2020 With significant hyperglycemia here On high doses of NPH 70/30 3 times daily as an outpatient -Consult pharmacy -Start Lantus 15 units twice daily and use NovoLog supplemental insulin Check hemoglobin A1c: 9.2 monitor for hypoglycemia (6) Anemia: Has been mildly low in the past but is normal for the last year and a half (7) Asthma: No acute issues Continue rescue inhalers as needed appreciate pulm consult, started Breo (8) Atrial flutter, paroxysmal: In sinus rhythm here Follow on telemetry Continue apixaban, atenolol (9) CAD (coronary artery disease): Noted to be nonobstructive on remote cath Troponin negative here, no acute issues (10) Chronic interstitial cystitis: Continue methenamine, has chronic indwelling Bernal catheter Continue amitriptyline Is also on chronic tramadol as needed (11) Depression with anxiety: Pretty significant and follows with psychiatry, Dr. Mckenzie as an outpatient Is on numerous psychiatric medications to include amitriptyline, doxepin, d uloxetine, Haldol as needed, lorazepam, mirtazapine, and sertraline Was also recently put on diphenhydramine to help with itching-hold this With polypharmacy-discussed with patient and her daughter, she has been tried to reduce her medications with PCP and has been unsuccessful (12) GERD (gastroesophageal reflux disease): Continue pantoprazole daily, Pepcid (13) History of pulmonary embolism: Is on Eliquis for atrial flutter as above (14) Hypertension: Blood pressure is mildly elevated here Continue home atenolol -Diuresing as above with Bumex (15) Hypothyroidism: TSH 4.4 in 09/2020 Is on very high dose of levothyroxine May have difficulty with absorption due to bowel edema from significant volume overload TSH here is 4.6 (16) Insomnia: Severe, reports she only sleeps from 11:30 PM to 3:30 in the morning every night Continue home medications as per psychiatry (17) Incomplete bladder emptying: With Bernal catheter in place Is on Myrbetriq-this may be able to be stopped unless it is being used for bladder spasm (18) YARI (obstructive sleep apnea): Continue CPAP although she reports she has been noncompliant with this at home Ordered for here and she is willing to use it (19) Osteoporosis: Noted (20) DVT prophylaxis: Apixaban DNR/DNI as per discussion with patient, daughter is in agreement Admission and Anticipated Discharge Date Admission Date: March 11, 2021 Subjective patient doing well, sitting up in her chair, still with edema in legs, reviewing prior weights, still up compared to prior levels eating and drinking well, no chest pain, no dyspnea, + dry cough, no nausea, no fever/chills reviewed chart and labs, Cr is 1.0, Na is 129, K is 3.9 legs are warm but not hot, need to continue to diureses Review of Systems Review of Systems: All systems reviewed & are unremarkable except as noted in Subjective Physical Exam Constitutional: well developed, well nourished, + obese and + edematous Neck: trachea midline, no thyromegaly + thick neck Respiratory: normal respiratory effort, lungs clear to auscultation Cardiovascular: Rate/Rhythm: regular rate and regular rhythm Heart Sounds: normal S1 and normal S2; no murmur Vessels: no JVD Extremities: normal capillary refill and + edema (pitting to mid shins) Gastrointestinal (Abdomen): normal bowel sounds, soft, nontender, no hepatosplenomegaly Musculoskeletal: no cyanosis or clubbing, extremities motor strength 5/5 Skin: + erythema (lower extremities bilaterally, warm but not hot, mildly tender) Neurologic: patellar DTR's 2+ bilat, sensation intact and PERRL, EOMI, accommodation nl, no face palsy, no dysarthria Psychiatric: A+Ox3, euthymic affect Lymphatic: no cervical or axillary lymphadenopathy Results & Data Results & Data ([facility]) Vital Signs (Past 12 Hours) Vital Signs Temp Pulse Pulse Resp BP BP Pulse Ox 03/16/21 07:15 36.5 C 95 H 16 132/75 92 03/16/21 07:01 88 03/16/21 03:20 36.6 C 100 H 20 147/85 H 93 03/16/21 00:00 91 H 03/15/21 22:36 37 C 94 H 20 126/74 93 03/15/21 22:26 22 93 03/15/21 22:15 100 H 22 93 Laboratory Results Laboratory Results - last 24 hr 03/16/21 03/16/21 03/16/21 07:27 09:43 11:53 Sodium 129 L Potassium 3.9 Chloride 95 L Carbon Dioxide 27 Anion Gap 7.0 BUN 16 Creatinine 1.06 Est Cr Clr Drug Dosing 53.1 Est GFR ( Amer) 57.4 Est GFR (Non-Af Amer) 49.6 BUN/Creatinine Ratio 15.3 Glucose 246 H POC Glucose 188 H 188 H Calcium 9.1 03/16/21 03/16/21 16:38 20:13 Sodium Potassium Chloride Carbon Dioxide Anion Gap BUN Creatinine Est Cr Clr Drug Dosing Est GFR ( Amer) Est GFR (Non-Af Amer) BUN/Creatinine Ratio Glucose POC Glucose 109 H 177 H Calcium Medications Administered Current Inpatient Medications Acetaminophen (Acetaminophen 500 Mg Tab) 1,000 mg PO Q8H PRN PRN Reason: Pain Stop: 04/10/21 21:17 Last Admin: 03/13/21 08:52 Dose: 1,000 mg Documented by: Albuterol (Albuterol Hfa 8 Gm Inhaler) 2 puffs INH Q4H PRN PRN Reason: Shortness Of Breath/WHEEZING Stop: 04/10/21 21:19 Last Admin: 03/15/21 22:15 Dose: 2 puffs Documented by: Amitriptyline HCl (Amitriptyline Hcl 50 Mg Tab) 50 mg PO QPM [facility] Stop: 04/10/21 20:59 Last Admin: 03/15/21 21:10 Dose: 50 mg Documented by: Amitriptyline HCl (Amitriptyline Hcl 25 Mg Tab) 25 mg PO QAM [facility] Stop: 04/11/21 08:59 Last Admin: 03/16/21 08:21 Dose: 25 mg Documented by: Amoxicillin/Clavulanate Potassium (Amoxicillin/Clavulanate 875 Mg Tab) 1 tab PO BIDM [facility]; Protocol Stop: 03/23/21 20:59 Apixaban (Apixaban 5 Mg Tablet) 5 mg PO BID [facility] Stop: 04/10/21 20:59 Last Admin: 03/16/21 08:19 Dose: 5 mg Documented by: Atenolol (Atenolol 25 Mg Tablet) 25 mg PO DAILY [facility] Stop: 04/11/21 08:59 Last Admin: 03/16/21 08:19 Dose: 25 mg Documented by: Bumetanide (Bumetanide 1 Mg Tab) 2 mg PO QAM [facility] Stop: 04/16/21 08:59 Cetirizine HCl (Cetirizine Hcl 10 Mg Tablet) 10 mg PO DAILY [facility] Stop: 04/11/21 08:59 Last Admin: 03/16/21 08:20 Dose: 10 mg Documented by: Dextrose (Dextrose 50% 50 Ml Syringe) 25 - 50 ml IV UD PRN; Protocol PRN Reason: Hypoglycemia Protocol Stop: 04/10/21 20:44 Diclofenac Sodium (Diclofenac Sod 1% Gel 100 Gm Tube) 2 gm EXT QID PRN PRN Reason: Pain Stop: 04/10/21 20:44 Donepezil HCl (Donepezil Hcl 5 Mg Tab) 5 mg PO HS [facility] Stop: 04/10/21 20:59 Last Admin: 03/15/21 21:02 Dose: 5 mg Documented by: Doxepin HCl (Doxepin Hcl 10 Mg Capsule) 10 mg PO DAILY [facility] Stop: 04/11/21 08:59 Last Admin: 03/16/21 08:20 Dose: 10 mg Documented by: Duloxetine HCl (Duloxetine Hcl 60 Mg Cap) 60 mg PO BID [facility] Stop: 04/10/21 20:59 Last Admin: 03/16/21 08:19 Dose: 60 mg Documented by: Famotidine (Famotidine 20 Mg Tab) 20 mg PO BID [facility] Stop: 04/10/21 20:59 Last Admin: 03/16/21 08:20 Dose: 20 mg Documented by: Ferrous Sulfate (Ferrous Sulfate 325 Mg Tab) 325 mg PO MoWeFr [facility] Stop: 04/12/21 08:59 Last Admin: 03/16/21 08:18 Dose: 325 mg Documented by: Fluticasone/Vilanterol (Fluticasone/Vilanterol 100/25mcg 14 Puffs/Inhaler) 1 puffs INH DAILY [facility] Stop: 04/12/21 13:14 Last Admin: 03/16/21 08:21 Dose: 1 puffs Documented by: Gabapentin (Gabapentin 300 Mg Cap) 300 mg PO TID [facility] Stop: 04/10/21 20:59 Last Admin: 03/16/21 15:02 Dose: 300 mg Documented by: Glucagon (Glucagon For Inj 1 Mg Vial) 1 mg SQ UD PRN; Protocol PRN Reason: Hypoglycemia Protocol Stop: 04/10/21 20:44 Glucose (Glucose 10 Tabs/Tube) 4 - 8 tabs PO UD PRN; Protocol PRN Reason: Hypoglycemia Protocol Stop: 04/10/21 20:44 Glucose (Glucose 40% Gel 15 Gm Tube) 15 - 30 gm PO UD PRN; Protocol PRN Reason: Hypoglycemia Protocol Stop: 04/10/21 20:44 Guaifenesin (Guaifenesin 600 Mg Tabcr) 600 mg PO Q12 [facility] Stop: 04/11/21 08:59 Last Admin: 03/16/21 08:21 Dose: 600 mg Documented by: Insulin Aspart (Insulin Aspart 100 Units/Ml 3 Ml Pen) 0 units SC ACHS [facility]; Protocol Stop: 04/10/21 20:59 Last Admin: 03/16/21 17:27 Dose: 16 units Documented by: Ipratropium [place] (Ipratropium [place] Hfa Inhaler) 2 puffs INH Q4H PRN PRN Reason: Shortness Of Breath Or Wheezing Stop: 04/10/21 20:44 Levothyroxine Sodium (Levothyroxine Sodium 125 Mcg Tablet) 250 mcg PO DAILYBB [facility] Stop: 04/11/21 06:29 Last Admin: 03/16/21 06:09 Dose: 250 mcg Documented by: Lorazepam (Lorazepam 0.5 Mg Tab) 0.5 mg PO QDL [facility] Stop: 04/11/21 11:29 Last Admin: 03/16/21 11:13 Dose: 0.5 mg Documented by: Lorazepam (Lorazepam 1 Mg Tab) 1 mg PO HS [facility] Stop: 04/10/21 20:59 Last Admin: 03/15/21 21:00 Dose: 1 mg Documented by: Melatonin (Melatonin 3 Mg Tab) 9 mg PO HSZ PRN PRN Reason: Sleep Stop: 04/10/21 21:16 Last Admin: 03/12/21 21:04 Dose: 9 mg Documented by: Mirabegron (Mirabegron Er 25 Mg Tab) 50 mg PO DAILY [facility] Stop: 04/11/21 08:59 Last Admin: 03/16/21 08:19 Dose: 50 mg Documented by: Mirtazapine (Mirtazapine Soltab 15 Mg) 45 mg PO HS [facility] Stop: 04/10/21 20:59 Last Admin: 03/15/21 21:00 Dose: 45 mg Documented by: Miscellaneous (Restasis~Order Awaiting Action) 1 ea N/A QS [facility] Stop: 04/11/21 07:59 Last Admin: 03/16/21 15:03 Dose: Not Given Documented by: Miscellaneous (Carbohydrates For Hypoglycemia ) 15 - 30 gm PO UD PRN PRN Reason: Hypoglycemia Protocol Stop: 04/10/21 20:44 Miscellaneous Information (Pharmacy Glycemic Mgmt Consult) 1 ea N/A UD PRN; Protocol PRN Reason: Consult Stop: 04/10/21 20:57 Montelukast Sodium (Montelukast Sodium 10 Mg Tablet) 10 mg PO QPM [facility] Stop: 04/10/21 20:59 Last Admin: 03/15/21 21:00 Dose: 10 mg Documented by: Multivitamins (Multivitamin Tab) 1 tab PO QAM [facility] Stop: 04/11/21 08:59 Last Admin: 03/16/21 08:20 Dose: 1 tab Documented by: Multivitamins/Minerals (Calcium 600mg + Vit D 400 Iu Tab) 1 tab PO BID [facility] Stop: 04/10/21 20:59 Last Admin: 03/16/21 08:20 Dose: 1 tab Documented by: Ondansetron HCl (Ondansetron Inj 2 Mg/Ml 2 Ml Vial) 4 mg IV Q6H PRN PRN Reason: Nausea Stop: 04/10/21 20:44 Last Admin: 03/12/21 19:54 Dose: 4 mg Documented by: Pantoprazole Sodium (Pantoprazole 40 Mg Tab) 40 mg PO QAM [facility] Stop: 04/11/21 08:59 Last Admin: 03/16/21 08:20 Dose: 40 mg Documented by: Polyethylene Glycol (Polyethylene (Miralax) 17 Gm Pack) 17 gm PO DAILY PRN PRN Reason: Constipation Stop: 04/10/21 20:44 Last Admin: 03/14/21 18:19 Dose: 17 gm Documented by: Potassium Chloride (Potassium Chloride Crtab 20 Meq Tabcr) 40 meq PO BID17 [facility] Stop: 04/10/21 20:59 Last Admin: 07/05/21 17:29 Dose: 40 meq Documented by: Sertraline HCl (Sertraline Hcl 100 Mg Tablet) 100 mg PO QAM [facility] Stop: 04/11/21 08:59 Last Admin: 03/16/21 08:19 Dose: 100 mg Documented by: Tamsulosin HCl (Tamsulosin Hcl 0.4 Mg Cap) 0.4 mg PO HS [facility] Stop: 04/10/21 20:59 Last Admin: 03/15/21 21:00 Dose: 0.4 mg Documented by: Tramadol HCl (Tramadol Hcl 50 Mg Tablet) 50 mg PO Q12H PRN PRN Reason: Pain Stop: 04/10/21 20:44 Last Admin: 03/13/21 08:53 Dose: 50 mg Documented by: Vitamin D (Cholecalciferol 1,000 Units 25 Mcg Tab) 1,000 units PO DAILY [facility] Stop: 04/11/21 08:59 Last Admin: 03/16/21 08:20 Dose: 1,000 units Documented by: PG Care Time/CCT Total # of Minutes Spent Total Time Spent with Patient: Total time spent is greater than 50% in coordination of care (as documented) at patient's floor/unit and/or counseling patient: Coding Level of Care Code 78490 Subseq Hosp Care Lvl 3 Diagnoses Cellulitis L03.90 Chronic diastolic congestive heart failure I50.32 Pneumonia J18.9 Laterality: unspecified laterality Lung location: unspecified part of lung Pneumonia type: due to unspecified organism Urinary tract infection N39.0 Hematuria presence: without hematuria Urinary tract infection type: site unspecified Type 2 diabetes mellitus with other circulatory complications E11.59 Anemia D64.9 Asthma J45.909 Atrial flutter, paroxysmal I48.92 CAD (coronary artery disease) I25.10 Associated angina: without angina Coronary Disease-Associated Artery/Lesion type: [place] artery [place] vs. transplanted heart: [place] heart Chronic interstitial cystitis N30.10 Depression with anxiety F41.8 GERD (gastroesophageal reflux disease) K21.9 History of pulmonary embolism Z86.711 Hypertension I10 Hypertension type: essential hypertension Hypothyroidism E03.9 Insomnia G47.00 Incomplete bladder emptying R33.9 YARI (obstructive sleep apnea) G47.33 Osteoporosis M81.0 DVT prophylaxis Z29.9 (1) Urinary tract infection Hematuria presence: without hematuria Urinary tract infection type: site unspecified Qualified Code(s): N39.0 - Urinary tract infection, site not specified (2) CAD (coronary artery disease) Associated angina: without angina Coronary Disease-Associated Artery/Lesion type: [place] artery [place] vs. transplanted heart: [place] heart Qualified Code(s): I25.10 - Atherosclerotic heart disease of [place] coronary artery without angina pectoris (3) Hypertension Hypertension type: essential hypertension Qualified Code(s): I10 - Essential (primary) hypertension (4) Pneumonia Laterality: unspecified laterality Lung location: unspecified part of lung Pneumonia type: due to unspecified organism Qualified Code(s): J18.9 - Pneumonia, unspecified organism
[2021-03-16 10:26] LABS: BUN Creatinine Ratio 15.3 (10-20); Calcium 9.1 mg/dl (8.5-10.1); Creatinine Clr Calc Pharmacy 53.1 ml/min; Est GFR (African American) 57.4 ml/min; Est GFR (Non-African American) 49.6 ml/min; Potassium 3.9 mmol/L (3.5-5.1)
[2021-03-16] MEDS: LORazepam 0.5 MG TAB PO SCH (11:13)
--- NOTE | 2021-03-16 14:24 | Pharmacy Report ---
Pharmacy Glycemic Short Note 2 - Date of Service March 16, 2021 - Glycemic Short BSG Results (Last 24 hours): 03/15/21 03/15/21 03/15/21 16:03 16:25 20:07 Glucose 204 H POC Glucose 184 H 115 H 03/16/21 03/16/21 03/16/21 07:27 09:43 11:53 Glucose 246 H POC Glucose 188 H 188 H OUTPATIENT ANTIDIABETIC REGIMEN: * Novolin 70/30 pre-mixed insulin 30 units with breakfast + 20 units with lunch + 30 units with dinner * A1c = 8% on 11/19/20 * A1c = 9.2% on 03/12/21 ASSESSMENT: 03/16 * Patient received total of 104 units of insulin, of which 60 units were basal * Fasting BSG trending up, continue with Lantus scale for this AM - patient to get 50 units. Will increase to 30 units at HS (~30% increase) 03/13 * Fasting 177 mg/dL, blood sugars overall seem to be trending downward * Will continue current regimen as BSGs continue to improve 03/12 * 80yo T2DM female maintained on large outpatient doses of pre-mixed insulin * Outpatient regimen is premixed basal/prandial insulin of Novolin 70/30 mix insulin. * Pre-mixed insulin is difficult to titrate since it is already in a fixed distribution of basal:prandial insulin. Continuing pre-mixed insulin for admission typically lead to hypoglycemia d/t changing PO status but rapid acting insulin is unable to be held. * Home regimen will be held for admission per pharmacy consult. Will utilize recommended regimen of SQ basal bolus insulin regimen with Lantus + NovoLog (CF+CR) * Pt A1c is elevated and she does take her insulin as Rx. She feels that she needs more insulin and has been gaining weight. Will increase to ~120units/day and re-distribute into 50:50% regimen of basal:prandial and titrate based on BSG trends PLAN FOR INPATIENT GLYCEMIC CONTROL: * Hold outpatient oral diabetes medications * Basal insulin * Lantus 30-50 units SQ BID based on BSG * Bolus insulin * NovoLog per scale ACHS or Q6hrs while NPO * Goal Range: Low 110 mg/dL - High 140 mg/dL * Correction Factor: 10 mg/dL/unit * Nutritional / Prandial insulin per carb ratio of 1 unit per 3 grams CHO consumed PLAN FOR DISCHARGE: * Titrate outpatient insulin dosing to achieve goal A1c < 8.5% * Pt feels that she needs more insulin at dc. A1c is elevated and patient is gaining weight. Will update insulin dosing recs based on inpatient trends.
[2021-03-16] MEDS ORDERED: INSULIN GLARGINE SOLOSTAR 100 UNITS/ML 3 ML PEN SC SCH (21:00)
[2021-03-16] MEDS: LORazepam 1 MG TAB PO SCH (22:05)
[2021-03-16] MEDS: MELATONIN 3 MG TAB PO PRN (22:06)
[2021-03-16] MEDS: AMITRIPTYLINE HCL 50 MG TAB PO SCH (22:10)
[2021-03-16] MEDS: TAMSULOSIN HCL 0.4 MG CAP PO SCH (22:12)
[2021-03-16] MEDS: MONTELUKAST SODIUM 10 MG TABLET PO SCH (22:13)
[2021-03-16] MEDS: DONEPEZIL HCL 5 MG TAB PO SCH (22:14)
[2021-03-16] MEDS: MIRTAZAPINE SOLTAB 15 MG PO SCH (22:15)
[2021-03-16] MEDS: AMOXICILLIN/CLAVULANATE 875 MG TAB PO SCH (22:17)
[2021-03-17] MEDS: RESTASIS~ORDER AWAITING ACTION SCH ×3 (01:57→16:21)
[2021-03-17] MEDS: LEVOTHYROXINE SODIUM 125 MCG TABLET PO SCH (06:20)
[2021-03-17] MEDS: CETIRIZINE HCL 10 MG TABLET PO SCH (07:57)
[2021-03-17] MEDS: MIRABEGRON ER 25 MG TAB PO SCH (07:57)
[2021-03-17] MEDS: ATENOLOL 25 MG TABLET PO SCH (07:57)
[2021-03-17] MEDS: AMITRIPTYLINE HCL 25 MG TAB PO SCH (07:57)
[2021-03-17] MEDS: AMOXICILLIN/CLAVULANATE 875 MG TAB PO SCH ×2 (07:57→18:01)
[2021-03-17] MEDS: DOXEPIN HCL 10 MG CAPSULE PO SCH (07:57)
[2021-03-17] MEDS: DULoxetine HCL 60 MG CAP PO SCH ×2 (07:58→21:25)
[2021-03-17] MEDS: SERTRALINE HCL 100 MG TABLET PO SCH (07:58)
[2021-03-17] MEDS: FAMOTIDINE 20 MG TAB PO SCH ×2 (07:58→21:25)
[2021-03-17] MEDS: CALCIUM 600MG + VIT D 400 IU TAB PO SCH ×2 (07:58→21:25)
[2021-03-17] MEDS: GABAPENTIN 300 MG CAP PO SCH ×3 (07:58→21:26)
[2021-03-17] MEDS: APIXABAN 5 MG TABLET PO SCH ×2 (07:58→21:25)
[2021-03-17] MEDS: PANTOprazole 40 MG TAB PO SCH (07:59)
[2021-03-17] MEDS: guaiFENesin 600 MG TABCR PO SCH ×2 (07:59→21:26)
[2021-03-17] MEDS: CHOLECALCIFEROL 1,000 UNITS 25 MCG TAB PO SCH (07:59)
[2021-03-17] MEDS: FLUTICASONE/VILANTEROL 100/25MCG 14 PUFFS/INHALER INH SCH (07:59)
[2021-03-17] MEDS: MULTIVITAMIN TAB PO SCH (07:59)
[2021-03-17] MEDS: INSULIN ASPART 100 UNITS/ML 3 ML PEN SC SCH ×4 (08:07→21:36)
[2021-03-17 08:08] LABS: BUN Creatinine Ratio 19.9 (10-20); Calcium 8.9 mg/dl (8.5-10.1); Creatinine Clr Calc Pharmacy 73.2 ml/min; Est GFR (African American) 83.2 ml/min; Est GFR (Non-African American) 71.8 ml/min; Potassium 4.1 mmol/L (3.5-5.1)
[2021-03-17] MEDS: POTASSIUM CHLORIDE CRTAB 20 MEQ TABCR PO SCH ×2 (08:24→18:01)
[2021-03-17] MEDS ORDERED: BUMETANIDE 1 MG TAB PO SCH (09:00)
[2021-03-17] MEDS ORDERED: INSULIN GLARGINE SOLOSTAR 100 UNITS/ML 3 ML PEN SC SCH (09:00)
[2021-03-17] MEDS ORDERED: NYSTATIN CR 15 GM TUBE EXT PRN (10:45)
--- NOTE | 2021-03-17 11:41 | Hospitalist Progress Note ---
Date of Service March 17, 2021 Assessment & Plan (1) Acute on chronic diastolic (congestive) heart failure: volume overloaded, peripheral edema will increase Bumex to 2mg PO BID, Cr is stable needs to get down by about 5kg to reach baseline repeat BMP in the morning (2) Cellulitis: Presents with low-grade fever, worsening swelling and erythema of the right leg, tachycardia, leukocytosis. No open wounds Cellulitis likely exacerbated with lower extremity edema skin is red, but not hot, mild tenderness IV site went bad, change to Augmentin and monitor clinical improvement continue for 5-7 days further In the past, she has refused compression stockings as per her daughter and previous notes reviewed in the chart will hold compression stocking until cellulitis has been treated. Will continue to diurese to help with the fluid retention. Cr is < 1, resume Bumex 2mg PO BID, K is 3.7 daily weights, still up about 5kg from previous baseline and appears volume overloaded (3) Chronic diastolic congestive heart failure: Patient does appear to have some right sided heart failure, (acute on chronic diastolic HF, see above) Her wheezing could be multifactorial with being obese, as well as having some underlying lung issue. She is going to see Dr. Ferris as an outpatient. Family is requesting a consult with Dr. Ferris while she is here This was completed. Appreciate inpuit from pulmonary. Breo was started. Wheezing has improved. With volume overload-she is up 30 kg of body weight since last year and 13 kg of body weight in the last 6 months Last echocardiogram 2018 with elevated right-sided pressures and preserved EF Given history of YARI, morbid obesity, most likely secondary to diastolic and right-sided heart failure proBNP is normal but could be in the setting of morbid obesity and right-sided failure (4) Pneumonia: With productive cough, fever, tachycardia, leukocytosis as above-chest x- ray with possible left lower lobe infiltrate, but this may just be from pulmonary edema and not necessarily pneumonia. Other findings may be from her cellulitis as above. has a dry cough but breathing comfortably difficult to rule out pneumonia but feel that cellulitis and volume overload are more likely her issues continue Augmentin for cellulitis that will cover lungs as well (5) Urinary tract infection: Urinalysis is abnormal but patient has chronic indwelling Bernal catheter Do not suspect she needs treatment for UTI at this time however is on antibiotics as above for cellulitis Follow urine culture, blood cultures Bernal catheter just exchanged on 03/05 and daughter reports that she gets her catheter exchanged monthly-she would be due then for an exchange on 03/12 (6) Type 2 diabetes mellitus with other circulatory complications: Hemoglobin A1c 8.0% in 11/2020 With significant hyperglycemia here On high doses of NPH 70/30 3 times daily as an outpatient -Consult pharmacy -Start Lantus 15 units twice daily and use NovoLog supplemental insulin Check hemoglobin A1c: 9.2 monitor for hypoglycemia, no episodes (7) Anemia: Has been mildly low in the past but is normal for the last year and a half (8) Asthma: No acute issues Continue rescue inhalers as needed appreciate pulm consult, started Breo (9) Atrial flutter, paroxysmal: In sinus rhythm here Follow on telemetry Continue apixaban, atenolol (10) CAD (coronary artery disease): Noted to be nonobstructive on remote cath Troponin negative here, no acute issues (11) Chronic interstitial cystitis: Continue methenamine, has chronic indwelling Bernal catheter Continue amitriptyline Is also on chronic tramadol as needed (12) Depression with anxiety: Pretty significant and follows with psychiatry, Dr. Mckenzie as an outpatient Is on numerous psychiatric medications to include amitriptyline, doxepin, duloxetine, Haldol as needed, lorazepam, mirtazapine, and sertraline Was also recently put on diphenhydramine to help with itching-hold this With polypharmacy-discussed with patient and her daughter, she has been tried to reduce her medications with PCP and has been unsuccessful (13) GERD (gastroesophageal reflux disease): Continue pantoprazole daily, Pepcid (14) History of pulmonary embolism: Is on Eliquis for atrial flutter as above (15) Hypertension: Blood pressure is mildly elevated here Continue home atenolol -Diuresing as above with Bumex (16) Hypothyroidism: TSH 4.4 in 09/2020 Is on very high dose of levothyroxine May have difficulty with absorption due to bowel edema from significant volume overload TSH here is 4.6 (17) Insomnia: Severe, reports she only sleeps from 11:30 PM to 3:30 in the morning every night Continue home medications as per psychiatry (18) Incomplete bladder emptying: With Bernal catheter in place Is on Myrbetriq-this may be able to be stopped unless it is being used for bladder spasm (19) YARI (obstructive sleep apnea): Continue CPAP although she reports she has been noncompliant with this at home Ordered for here and she is willing to use it (20) Osteoporosis: Noted (21) DVT prophylaxis: Apixaban DNR/DNI as per discussion with patient, daughter is in agreement Admission and Anticipated Discharge Date Admission Date: March 11, 2021 Subjective patient doing well, ambulated with therapy, went about 1/3 as far as she typically walks limited by dyspnea responding well to Bumex 2mg PO this morning, Cr is < 1, will add 2nd dose this afternoon will have RN exchange catheter today reviewed records from urology, catheter has h/o leaking, not much they can offer per Dr. Lopez note eating very well, had a good BM today no fever, no chest pain, no dyspnea at rest, only has SERNA, + edema in legs Review of Systems Review of Systems: All systems reviewed & are unremarkable except as noted in Subjective Physical Exam Constitutional: well developed, well nourished, + obese and + edematous Neck: trachea midline, no thyromegaly + thick neck Respiratory: normal respiratory effort, lungs clear to auscultation Cardiovascular: Rate/Rhythm: regular rate and regular rhythm Heart Sounds: normal S1 and normal S2; no murmur Vessels: no JVD Extremities: normal capillary refill and + edema (pitting to mid shins) Gastrointestinal (Abdomen): normal bowel sounds, soft, nontender, no hepat osplenomegaly Musculoskeletal: no cyanosis or clubbing, extremities motor strength 5/5 Skin: + erythema (lower extremities bilaterally, warm but not hot, mildly tender) Neurologic: patellar DTR's 2+ bilat, sensation intact and PERRL, EOMI, accommodation nl, no face palsy, no dysarthria Psychiatric: A+Ox3, euthymic affect Lymphatic: no cervical or axillary lymphadenopathy Results & Data Results & Data ([facility]) Vital Signs (Past 12 Hours) Vital Signs Temp Pulse Pulse Resp BP Pulse Ox 03/17/21 07:26 36.4 C L 89 16 144/80 H 92 03/17/21 04:30 36.8 C 75 20 142/78 H 94 03/17/21 02:06 88 Laboratory Results Laboratory Results - last 24 hr 03/16/21 03/16/21 03/16/21 11:53 16:38 20:13 Sodium Potassium Chloride Carbon Dioxide Anion Gap BUN Creatinine Est Cr Clr Drug Dosing Est GFR ( Amer) Est GFR (Non-Af Amer) BUN/Creatinine Ratio Glucose POC Glucose 188 H 109 H 177 H Calcium 03/17/21 03/17/21 06:20 07:18 Sodium 133 L Potassium 4.1 Chloride 99 Carbon Dioxide 27 Anion Gap 7.0 BUN 16 Creatinine 0.78 Est Cr Clr Drug Dosing 73.2 Est GFR ( Amer) 83.2 Est GFR (Non-Af Amer) 71.8 BUN/Creatinine Ratio 19.9 Glucose 122 H POC Glucose 139 H Calcium 8.9 Medications Administered Current Inpatient Medications Acetaminophen (Acetaminophen 500 Mg Tab) 1,000 mg PO Q8H PRN PRN Reason: Pain Stop: 04/10/21 21:17 Last Admin: 03/13/21 08:52 Dose: 1,000 mg Documented by: Albuterol (Albuterol Hfa 8 Gm Inhaler) 2 puffs INH Q4H PRN PRN Reason: Shortness Of Breath/WHEEZING Stop: 04/10/21 21:19 Last Admin: 03/15/21 22:15 Dose: 2 puffs Documented by: Amitriptyline HCl (Amitriptyline Hcl 50 Mg Tab) 50 mg PO QPM [facility] [place] Stop: 04/10/21 20:59 Last Admin: 03/16/21 22:10 Dose: 50 mg Documented by: Amitriptyline HCl (Amitriptyline Hcl 25 Mg Tab) 25 mg PO QAM [facility] [place] Stop: 04/11/21 08:59 Last Admin: 03/17/21 07:57 Dose: 25 mg Documented by: Amoxicillin/Clavulanate Potassium (Amoxicillin/Clavulanate 875 Mg Tab) 1 tab PO BIDM [facility] [place]; Protocol Stop: 03/23/21 20:59 Last Admin: 03/17/21 07:57 Dose: 1 tab Documented by: Apixaban (Apixaban 5 Mg Tablet) 5 mg PO BID [facility] [place] Stop: 04/10/21 20:59 Last Admin: 03/17/21 07:58 Dose: 5 mg Documented by: Atenolol (Atenolol 25 Mg Tablet) 25 mg PO DAILY [facility] [place] Stop: 04/11/21 08:59 Last Admin: 03/17/21 07:57 Dose: 25 mg Documented by: Bumetanide (Bumetanide 1 Mg Tab) 2 mg PO BID [facility] Stop: 04/16/21 20:59 Cetirizine HCl (Cetirizine Hcl 10 Mg Tablet) 10 mg PO DAILY [facility] Stop: 04/11/21 08:59 Last Admin: 03/17/21 07:57 Dose: 10 mg Documented by: Dextrose (Dextrose 50% 50 Ml Syringe) 25 - 50 ml IV UD PRN; Protocol PRN Reason: Hypoglycemia Protocol Stop: 04/10/21 20:44 Diclofenac Sodium (Diclofenac Sod 1% Gel 100 Gm Tube) 2 gm EXT QID PRN PRN Reason: Pain Stop: 04/10/21 20:44 Donepezil HCl (Donepezil Hcl 5 Mg Tab) 5 mg PO HS [facility] [place] Stop: 04/10/21 20:59 Last Admin: 03/16/21 22:14 Dose: 5 mg Documented by: Doxepin HCl (Doxepin Hcl 10 Mg Capsule) 10 mg PO DAILY [facility] Stop: 04/11/21 08:59 Last Admin: 03/17/21 07:57 Dose: 10 mg Documented by: Duloxetine HCl (Duloxetine Hcl 60 Mg Cap) 60 mg PO BID [facility] Stop: 04/10/21 20:59 Last Admin: 03/17/21 07:58 Dose: 60 mg Documented by: Famotidine (Famotidine 20 Mg Tab) 20 mg PO BID [facility] Stop: 04/10/21 20:59 Last Admin: 03/17/21 07:58 Dose: 20 mg Documented by: Ferrous Sulfate (Ferrous Sulfate 325 Mg Tab) 325 mg PO MoWeFr [facility] Stop: 04/12/21 08:59 Last Admin: 03/16/21 08:18 Dose: 325 mg Documented by: Fluticasone/Vilanterol (Fluticasone/Vilanterol 100/25mcg 14 Puffs/Inhaler) 1 puffs INH DAILY [facility] Stop: 04/12/21 13:14 Last Admin: 03/17/21 07:59 Dose: 1 puffs Documented by: Gabapentin (Gabapentin 300 Mg Cap) 300 mg PO TID [facility] Stop: 04/10/21 20:59 Last Admin: 03/17/21 07:58 Dose: 300 mg Documented by: Glucagon (Glucagon For Inj 1 Mg Vial) 1 mg SQ UD PRN; Protocol PRN Reason: Hypoglycemia Protocol Stop: 04/10/21 20:44 Glucose (Glucose 10 Tabs/Tube) 4 - 8 tabs PO UD PRN; Protocol PRN Reason: Hypoglycemia Protocol Stop: 04/10/21 20:44 Glucose (Glucose 40% Gel 15 Gm Tube) 15 - 30 gm PO UD PRN; Protocol PRN Reason: Hypoglycemia Protocol Stop: 04/10/21 20:44 Guaifenesin (Guaifenesin 600 Mg Tabcr) 600 mg PO Q12 [facility] Stop: 04/11/21 08:59 Last Admin: 03/17/21 07:59 Dose: 600 mg Documented by: Insulin Aspart (Insulin Aspart 100 Units/Ml 3 Ml Pen) 0 units SC ACHS [facility]; Protocol Stop: 04/10/21 20:59 Last Admin: 03/17/21 08:07 Dose: 20 units Documented by: Insulin Glargine (Insulin Glargine Solostar 100 Units/Ml 3 Ml Pen) 40 units SC BID [facility] Stop: 04/16/21 08:59 Last Admin: 03/17/21 08:06 Dose: 40 units Documented by: Ipratropium [place] (Ipratropium [place] Hfa Inhaler) 2 puffs INH Q4H PRN PRN Reason: Shortness Of Breath Or Wheezing Stop: 04/10/21 20:44 Levothyroxine Sodium (Levothyroxine Sodium 125 Mcg Tablet) 250 mcg PO DAILYBB [facility] Stop: 04/11/21 06:29 Last Admin: 03/17/21 06:20 Dose: 250 mcg Documented by: Lorazepam (Lorazepam 0.5 Mg Tab) 0.5 mg PO QDL [facility] Stop: 04/11/21 11:29 Last Admin: 03/16/21 11:13 Dose: 0.5 mg Documented by: Lorazepam (Lorazepam 1 Mg Tab) 1 mg PO HS [facility] Stop: 04/10/21 20:59 Last Admin: 03/16/21 22:05 Dose: 1 mg Documented by: Melatonin (Melatonin 3 Mg Tab) 9 mg PO HSZ PRN PRN Reason: Sleep Stop: 04/10/21 21:16 Last Admin: 03/16/21 22:06 Dose: 9 mg Documented by: Mirabegron (Mirabegron Er 25 Mg Tab) 50 mg PO DAILY [facility] [place] Stop: 04/11/21 08:59 Last Admin: 03/17/21 07:57 Dose: 50 mg Documented by: Mirtazapine (Mirtazapine Soltab 15 Mg) 45 mg PO HS [facility] Stop: 04/10/21 20:59 Last Admin: 03/16/21 22:15 Dose: 45 mg Documented by: Miscellaneous (Restasis~Order Awaiting Action) 1 ea N/A QS [facility] Stop: 04/11/21 07:59 Last Admin: 03/17/21 07:59 Dose: Not Given Documented by: Miscellaneous (Carbohydrates For Hypoglycemia ) 15 - 30 gm PO UD PRN PRN Reason: Hypoglycemia Protocol Stop: 04/10/21 20:44 Miscellaneous Information (Pharmacy Glycemic Mgmt Consult) 1 ea N/A UD PRN; Protocol PRN Reason: Consult Stop: 04/10/21 20:57 Montelukast Sodium (Montelukast Sodium 10 Mg Tablet) 10 mg PO QPM [facility] [place] Stop: 04/10/21 20:59 Last Admin: 03/16/21 22:13 Dose: 10 mg Documented by: Multivitamins (Multivitamin Tab) 1 tab PO QAM [facility] [place] Stop: 04/11/21 08:59 Last Admin: 03/17/21 07:59 Dose: 1 tab Documented by: Multivitamins/Minerals (Calcium 600mg + Vit D 400 Iu Tab) 1 tab PO BID [facility] [place] Stop: 04/10/21 20:59 Last Admin: 03/17/21 07:58 Dose: 1 tab Documented by: Nystatin (Nystatin Cr 15 Gm Tube) 1 appln EXT DAILY PRN PRN Reason: AFFECTED SKIN Stop: 04/16/21 10:44 Ondansetron HCl (Ondansetron Inj 2 Mg/Ml 2 Ml Vial) 4 mg IV Q6H PRN PRN Reason: Nausea Stop: 04/10/21 20:44 Last Admin: 03/12/21 19:54 Dose: 4 mg Documented by: Pantoprazole Sodium (Pantoprazole 40 Mg Tab) 40 mg PO QAM [facility] [place] Stop: 04/11/21 08:59 Last Admin: 03/17/21 07:59 Dose: 40 mg Documented by: Polyethylene Glycol (Polyethylene (Miralax) 17 Gm Pack) 17 gm PO DAILY PRN PRN Reason: Constipation Stop: 04/10/21 20:44 Last Admin: 03/14/21 18:19 Dose: 17 gm Documented by: Potassium Chloride (Potassium Chloride Crtab 20 Meq Tabcr) 40 meq PO BID17 [facility] Stop: 04/10/21 20:59 Last Admin: 03/17/21 08:24 Dose: 40 meq Documented by: Sertraline HCl (Sertraline Hcl 100 Mg Tablet) 100 mg PO QAM [facility] Stop: 04/11/21 08:59 Last Admin: 03/17/21 07:58 Dose: 100 mg Documented by: Tamsulosin HCl (Tamsulosin Hcl 0.4 Mg Cap) 0.4 mg PO HS [facility] Stop: 04/10/21 20:59 Last Admin: 03/16/21 22:12 Dose: 0.4 mg Documented by: Tramadol HCl (Tramadol Hcl 50 Mg Tablet) 50 mg PO Q12H PRN PRN Reason: Pain Stop: 04/10/21 20:44 Last Admin: 03/13/21 08:53 Dose: 50 mg Documented by: Vitamin D (Cholecalciferol 1,000 Units 25 Mcg Tab) 1,000 units PO DAILY [facility] Stop: 04/11/21 08:59 Last Admin: 03/17/21 07:59 Dose: 1,000 units Documented by: PG Care Time/CCT Total # of Minutes Spent Total Time Spent with Patient: Total time spent is greater than 50% in coordination of care (as documented) at patient's floor/unit and/or counseling patient: Coding Level of Care Code 14499 Subseq Hosp Care Lvl 3 Diagnoses Acute on chronic diastolic (congestive) heart failure I50.33 Cellulitis L03.90 Chronic diastolic congestive heart failure I50.32 Pneumonia J18.9 Laterality: unspecified laterality Lung location: unspecified part of lung Pneumonia type: due to unspecified organism Urinary tract infection N39.0 Hematuria presence: without hematuria Urinary tract infection type: site unspecified Type 2 diabetes mellitus with other circulatory complications E11.59 Anemia D64.9 Asthma J45.909 Atrial flutter, paroxysmal I48.92 CAD (coronary artery disease) I25.10 Associated angina: without angina Coronary Disease-Associated Artery/Lesion type: [place] artery [place] vs. transplanted heart: [place] heart Chronic interstitial cystitis N30.10 Depression with anxiety F41.8 GERD (gastroesophageal reflux disease) K21.9 History of pulmonary embolism Z86.711 Hypertension I10 Hypertension type: essential hypertension Hypothyroidism E03.9 Insomnia G47.00 Incomplete bladder emptying R33.9 YARI (obstructive sleep apnea) G47.33 Osteoporosis M81.0 DVT prophylaxis Z29.9 (1) Urinary tract infection Hematuria presence: without hematuria Urinary tract infection type: site unspecified Qualified Code(s): N39.0 - Urinary tract infection, site not specified (2) CAD (coronary artery disease) Associated angina: without angina Coronary Disease-Associated Artery/Lesion type: [place] artery [place] vs. transplanted heart: [place] heart Qualified Code(s): I25.10 - Atherosclerotic heart disease of [place] coronary artery without angina pectoris (3) Hypertension Hypertension type: essential hypertension Qualified Code(s): I10 - Essential (primary) hypertension (4) Pneumonia Laterality: unspecified laterality Lung location: unspecified part of lung Pneumonia type: due to unspecified organism Qualified Code(s): J18.9 - Pneumonia, unspecified organism
[2021-03-17] MEDS: LORazepam 0.5 MG TAB PO SCH (13:10)
[2021-03-17] MEDS: AMITRIPTYLINE HCL 50 MG TAB PO SCH (21:25)
[2021-03-17] MEDS: BUMETANIDE 1 MG TAB PO SCH (21:25)
[2021-03-17] MEDS: DONEPEZIL HCL 5 MG TAB PO SCH (21:25)
[2021-03-17] MEDS: TAMSULOSIN HCL 0.4 MG CAP PO SCH (21:26)
[2021-03-17] MEDS: MONTELUKAST SODIUM 10 MG TABLET PO SCH (21:26)
[2021-03-17] MEDS: MIRTAZAPINE SOLTAB 15 MG PO SCH (21:26)
[2021-03-17] MEDS: LORazepam 1 MG TAB PO SCH (21:26)
[2021-03-17] MEDS: INSULIN GLARGINE SOLOSTAR 100 UNITS/ML 3 ML PEN SC SCH (21:37)
[2021-03-18] MEDS: RESTASIS~ORDER AWAITING ACTION SCH ×3 (00:39→15:22)
[2021-03-18] MEDS: LEVOTHYROXINE SODIUM 125 MCG TABLET PO SCH (06:02)
[2021-03-18] MEDS: FLUTICASONE/VILANTEROL 100/25MCG 14 PUFFS/INHALER INH SCH (07:38)
[2021-03-18] MEDS: AMOXICILLIN/CLAVULANATE 875 MG TAB PO SCH ×2 (07:40→17:43)
[2021-03-18] MEDS: guaiFENesin 600 MG TABCR PO SCH ×2 (07:40→21:33)
[2021-03-18] MEDS: BUMETANIDE 1 MG TAB PO SCH ×2 (07:41→21:34)
[2021-03-18] MEDS: CHOLECALCIFEROL 1,000 UNITS 25 MCG TAB PO SCH (07:41)
[2021-03-18] MEDS: DOXEPIN HCL 10 MG CAPSULE PO SCH (07:41)
[2021-03-18] MEDS: GABAPENTIN 300 MG CAP PO SCH ×3 (07:43→21:33)
[2021-03-18] MEDS: MIRABEGRON ER 25 MG TAB PO SCH (07:43)
[2021-03-18] MEDS: PANTOprazole 40 MG TAB PO SCH (07:43)
[2021-03-18] MEDS: FAMOTIDINE 20 MG TAB PO SCH ×2 (07:44→21:33)
[2021-03-18] MEDS: APIXABAN 5 MG TABLET PO SCH ×2 (07:44→21:34)
[2021-03-18] MEDS: SERTRALINE HCL 100 MG TABLET PO SCH (07:44)
[2021-03-18] MEDS: CALCIUM 600MG + VIT D 400 IU TAB PO SCH ×2 (07:45→21:34)
[2021-03-18] MEDS: MULTIVITAMIN TAB PO SCH (07:45)
[2021-03-18] MEDS: AMITRIPTYLINE HCL 25 MG TAB PO SCH (07:45)
[2021-03-18] MEDS: ATENOLOL 25 MG TABLET PO SCH (07:45)
[2021-03-18] MEDS: FERROUS SULFATE 325 MG TAB PO SCH (07:45)
[2021-03-18] MEDS: DULoxetine HCL 60 MG CAP PO SCH ×2 (07:45→21:34)
[2021-03-18] MEDS: CETIRIZINE HCL 10 MG TABLET PO SCH (07:45)
[2021-03-18] MEDS: POTASSIUM CHLORIDE CRTAB 20 MEQ TABCR PO SCH ×2 (07:57→17:43)
[2021-03-18] MEDS: INSULIN ASPART 100 UNITS/ML 3 ML PEN SC SCH ×4 (08:45→21:37)
[2021-03-18] MEDS: INSULIN GLARGINE SOLOSTAR 100 UNITS/ML 3 ML PEN SC SCH ×2 (08:49→21:36)
[2021-03-18 09:13] LABS: Hematocrit (blood only) 37.7 % (37-47); Hemoglobin 12.6 g/dL (12.0-16.0); Mean Corpuscular Hemoglobin 30.4 pg (25-34); Mean Corpuscular Hgb Conc 33.4 g/dL (32-36); Mean Corpuscular Volume 90.8 fL (80-100); Mean Platelet Volume 9.6 fL (7.4-10.4); Platelet Count 387 K/uL (130-400); RDW Coefficient of Variation 14.6 % (11.5-14.5); RDW Standard Deviation 48.7 fL (36.4-46.3); Red Blood Count 4.15 M/uL (4.2-5.4); White Blood Count 13.07 K/uL (4.8-10.8)
[2021-03-18 09:35] LABS: BUN Creatinine Ratio 18.2 (10-20); Calcium 9.2 mg/dl (8.5-10.1); Est GFR (African American) 63.9 ml/min; Est GFR (Non-African American) 55.2 ml/min; Magnesium 1.9 mg/dl (1.8-2.4); Potassium 3.7 mmol/L (3.5-5.1)
--- NOTE | 2021-03-18 10:01 | Hospitalist Progress Note ---
Date of Service March 18, 2021 Assessment & Plan (1) Acute on chronic diastolic (congestive) heart failure: volume overloaded, peripheral edema continue Bumex 2mg PO BID, Cr is stable at 0.97 weight down 3kg from yesterday hoping that she will be close to baseline tomorrow which is around 121-122kg repeat BMP in the morning (2) Cellulitis: Presents with low-grade fever, worsening swelling and erythema of the right leg, tachycardia, leukocytosis. No open wounds Cellulitis likely exacerbated with lower extremity edema skin is red, but not hot, mild tenderness IV site went bad, change to Augmentin and monitor clinical improvement continue for 5 more days, last day 03/23/21 In the past, she has refused compression stockings as per her daughter and previous notes reviewed in the chart will hold compression stocking until cellulitis has been treated. Will continue to diurese to help with the fluid retention. Cr is 0.97, continue Bumex 2mg PO BID, K is 3.7 daily weights, weight down 3kg from yesterday (3) Chronic diastolic congestive heart failure: Patient does appear to have some right sided heart failure, (acute on chronic diastolic HF, see above) Her wheezing could be multifactorial with being obese, as well as having some underlying lung issue. She is going to see Dr. Ferris as an outpatient. Family is requesting a consult with Dr. Ferris while she is here This was completed. Appreciate inpuit from pulmonary. Breo was started. Wheezing has improved. With volume overload-she is up 30 kg of body weight since last year and 13 kg of body weight in the last 6 months Last echocardiogram 2018 with elevated right-sided pressures and preserved EF Given history of YARI, morbid obesity, most likely secondary to diastolic and right-sided heart failure proBNP is normal but could be in the setting of morbid obesity and right-sided failure (4) Pneumonia: With productive cough, fever, tachycardia, leukocytosis as above-chest x- ray with possible left lower lobe infiltrate, but this may just be from pulmonary edema and not necessarily pneumonia. Other findings may be from her cellulitis as above. has a dry cough but breathing comfortably difficult to rule out pneumonia but feel that cellulitis and volume overload are more likely her issues continue Augmentin for cellulitis that will cover lungs as well (5) Urinary tract infection: Urinalysis is abnormal but patient has chronic indwelling Chambers catheter Do not suspect she needs treatment for UTI at this time however is on antibiotics as above for cellulitis Follow urine culture, blood cultures Chambers catheter exchanged by RN on 03/17 she typically follows with urology and gets chambers exchanged by RN in the office once a week (6) Type 2 diabetes mellitus with other circulatory complications: Hemoglobin A1c 8.0% in 11/2020 With significant hyperglycemia here On high doses of NPH 70/30 3 times daily as an outpatient -Consult pharmacy -Start Lantus 15 units twice daily and use NovoLog supplemental insulin Check hemoglobin A1c: 9.2 monitor for hypoglycemia, no episodes past 24 hours (7) Anemia: Has been mildly low in the past but is normal for the last year and a half (8) Asthma: No acute issues Continue rescue inhalers as needed appreciate pulm consult, started Breo (9) Atrial flutter, paroxysmal: In sinus rhythm here Follow on telemetry Continue apixaban, atenolol (10) CAD (coronary artery disease): Noted to be nonobstructive on remote cath Troponin negative here, no acute issues (11) Chronic interstitial cystitis: Continue methenamine, has chronic indwelling Chambers catheter Continue amitriptyline Is also on chronic tramadol as needed (12) Depression with anxiety: Pretty significant and follows with psychiatry, Dr. Mckenzie as an outpatient Is on numerous psychiatric medications to include amitriptyline, doxepin, duloxetine, Haldol as needed, lorazepam, mirtazapine, and sertraline Was also recently put on diphenhydramine to help with itching- resume this today as she has more itching With polypharmacy-discussed with patient and her daughter, she has been tried to reduce her medications with PCP and has been unsuccessful (13) GERD (gastroesophageal reflux disease): Continue pantoprazole daily, Pepcid (14) History of pulmonary embolism: Is on Eliquis for atrial flutter as above (15) Hypertension: Blood pressure is mildly elevated here Continue home atenolol -Diuresing as above with Bumex (16) Hypothyroidism: TSH 4.4 in 09/2020 Is on very high dose of levothyroxine May have difficulty with absorption due to bowel edema from significant volume overload TSH here is 4.6 (17) Insomnia: Severe, reports she only sleeps from 11:30 PM to 3:30 in the morning every night Continue home medications as per psychiatry (18) Incomplete bladder emptying: With Chambers catheter in place Is on Myrbetriq (19) YARI (obstructive sleep apnea): Continue CPAP although she reports she has been noncompliant with this at home Ordered for here and she is willing to use it (20) Osteoporosis: Noted (21) DVT prophylaxis: Apixaban DNR/DNI as per discussion with patient, daughter is in agreement Admission and Anticipated Discharge Date Admission Date: March 11, 2021 Subjective patient doing well, no acute issues overnight breathing is improved with diuresis weight is down 3kg from yesterday Cr is stable at 0.97 and K is 3.7 on the Bumex twice a day appetite is still very good, had a good BM yesterday, new chambers working well Review of Systems Review of Systems: All systems reviewed & are unremarkable except as noted in Subjective Physical Exam Constitutional: well developed, well nourished, + obese and + edematous Neck: trachea midline, no thyromegaly + thick neck Respiratory: normal respiratory effort, lungs clear to auscultation Cardiovascular: Rate/Rhythm: regular rate and regular rhythm Heart Sounds: normal S1 and normal S2; no murmur Vessels: no JVD Extremities: normal capillary refill and + edema (pitting to mid shins) Gastrointestinal (Abdomen): normal bowel sounds, soft, nontender, no hepatosplenomegaly Musculoskeletal: no cyanosis or clubbing, extremities motor strength 5/5 Skin: + erythema (lower extremities bilaterally, warm but not hot, mildly tender) Neurologic: patellar DTR's 2+ bilat, sensation intact and PERRL, EOMI, accommodation nl, no face palsy, no dysarthria Psychiatric: A+Ox3, euthymic affect Lymphatic: no cervical or axillary lymphadenopathy Results & Data Results & Data ([facility]) Vital Signs (Past 12 Hours) Vital Signs Temp Pulse Pulse Resp BP Pulse Ox 03/18/21 07:43 36.6 C 91 H 16 105/67 90 03/18/21 03:26 36.9 C 99 H 18 141/81 H 94 03/18/21 01:05 90 03/18/21 00:19 120/67 03/17/21 23:04 36.6 C 91 H 18 174/80 H 94 Laboratory Results Laboratory Results - last 24 hr 03/14/21 03/17/21 03/17/21 09:03 11:59 16:26 WBC RBC Hgb Hct MCV MCH MCHC RDW Std Deviation RDW Coeff of Chalino Plt Count MPV Sodium Potassium Chloride Carbon Dioxide Anion Gap BUN Creatinine Est Cr Clr Drug Dosing Est GFR ( Amer) Est GFR (Non-Af Amer) BUN/Creatinine Ratio Glucose POC Glucose 155 H 139 H Calcium Magnesium IgE 69 03/17/21 03/18/21 03/18/21 20:12 07:32 08:16 WBC 13.07 H RBC 4.15 L Hgb 12.6 Hct 37.7 MCV 90.8 MCH 30.4 MCHC 33.4 RDW Std Deviation 48.7 H RDW Coeff of [place]ino 14.6 H Plt Count 387 MPV 9.6 Sodium Potassium Chloride Carbon Dioxide Anion Gap BUN Creatinine Est Cr Clr Drug Dosing Est GFR ( Amer) Est GFR (Non-Af Amer) BUN/Creatinine Ratio Glucose POC Glucose 160 H 167 H Calcium Magnesium IgE 03/18/21 08:16 WBC RBC Hgb Hct MCV MCH MCHC RDW Std Deviation RDW Coeff of [place]ino Plt Count MPV Sodium 134 L Potassium 3.7 Chloride 97 L Carbon Dioxide 29 Anion Gap 8.0 BUN 18 Creatinine 0.97 Est Cr Clr Drug Dosing 58.0 Est GFR ( Amer) 63.9 Est GFR (Non-Af Amer) 55.2 BUN/Creatinine Ratio 18.2 Glucose 148 H POC Glucose Calcium 9.2 Magnesium 1.9 IgE Medications Administered Current Inpatient Medications Acetaminophen (Acetaminophen 500 Mg Tab) 1,000 mg PO Q8H PRN PRN Reason: Pain Stop: 04/10/21 21:17 Last Admin: 03/13/21 08:52 Dose: 1,000 mg Documented by: Albuterol (Albuterol Hfa 8 Gm Inhaler) 2 puffs INH Q4H PRN PRN Reason: Shortness Of Breath/WHEEZING Stop: 04/10/21 21:19 Last Admin: 03/15/21 22:15 Dose: 2 puffs Documented by: Amitriptyline HCl (Amitriptyline Hcl 50 Mg Tab) 50 mg PO QPM [facility] Stop: 04/10/21 20:59 Last Admin: 03/17/21 21:25 Dose: 50 mg Documented by: Amitriptyline HCl (Amitriptyline Hcl 25 Mg Tab) 25 mg PO QAM [facility] Stop: 04/11/21 08:59 Last Admin: 03/18/21 07:45 Dose: 25 mg Documented by: Amoxicillin/Clavulanate Potassium (Amoxicillin/Clavulanate 875 Mg Tab) 1 tab PO BIDM [facility]; Protocol Stop: 03/23/21 20:59 Last Admin: 03/18/21 07:40 Dose: 1 tab Documented by: Apixaban (Apixaban 5 Mg Tablet) 5 mg PO BID [facility] Stop: 04/10/21 20:59 Last Admin: 03/18/21 07:44 Dose: 5 mg Documented by: Atenolol (Atenolol 25 Mg Tablet) 25 mg PO DAILY [facility] Stop: 04/11/21 08:59 Last Admin: 03/18/21 07:45 Dose: 25 mg Documented by: Bumetanide (Bumetanide 1 Mg Tab) 2 mg PO BID [facility] Stop: 04/16/21 20:59 Last Admin: 03/18/21 07:41 Dose: 2 mg Documented by: Cetirizine HCl (Cetirizine Hcl 10 Mg Tablet) 10 mg PO DAILY [facility] Stop: 04/11/21 08:59 Last Admin: 03/18/21 07:45 Dose: 10 mg Documented by: Dextrose (Dextrose 50% 50 Ml Syringe) 25 - 50 ml IV UD PRN; Protocol PRN Reason: Hypoglycemia Protocol Stop: 04/10/21 20:44 Diclofenac Sodium (Diclofenac Sod 1% Gel 100 Gm Tube) 2 gm EXT QID PRN PRN Reason: Pain Stop: 04/10/21 20:44 Diphenhydramine HCl (Diphenhydramine Capsule 25 Mg Cap) 25 mg PO Q8 PRN PRN Reason: Itching Stop: 04/17/21 09:00 Donepezil HCl (Donepezil Hcl 5 Mg Tab) 5 mg PO HS [facility] Stop: 04/10/21 20:59 Last Admin: 03/17/21 21:25 Dose: 5 mg Documented by: Doxepin HCl (Doxepin Hcl 10 Mg Capsule) 10 mg PO DAILY [facility] Stop: 04/11/21 08:59 Last Admin: 03/18/21 07:41 Dose: 10 mg Documented by: Duloxetine HCl (Duloxetine Hcl 60 Mg Cap) 60 mg PO BID [facility] Stop: 04/10/21 20:59 Last Admin: 03/18/21 07:45 Dose: 60 mg Documented by: Famotidine (Famotidine 20 Mg Tab) 20 mg PO BID [facility] Stop: 04/10/21 20:59 Last Admin: 03/18/21 07:44 Dose: 20 mg Documented by: Ferrous Sulfate (Ferrous Sulfate 325 Mg Tab) 325 mg PO MoWeFr [facility] Stop: 04/12/21 08:59 Last Admin: 03/18/21 07:45 Dose: 325 mg Documented by: Fluticasone/Vilanterol (Fluticasone/Vilanterol 100/25mcg 14 Puffs/Inhaler) 1 puffs INH DAILY [facility] Stop: 04/12/21 13:14 Last Admin: 03/18/21 07:38 Dose: 1 puffs Documented by: Gabapentin (Gabapentin 300 Mg Cap) 300 mg PO TID [facility] Stop: 04/10/21 20:59 Last Admin: 03/18/21 07:43 Dose: 300 mg Documented by: Glucagon (Glucagon For Inj 1 Mg Vial) 1 mg SQ UD PRN; Protocol PRN Reason: Hypoglycemia Protocol Stop: 04/10/21 20:44 Glucose (Glucose 10 Tabs/Tube) 4 - 8 tabs PO UD PRN; Protocol PRN Reason: Hypoglycemia Protocol Stop: 04/10/21 20:44 Glucose (Glucose 40% Gel 15 Gm Tube) 15 - 30 gm PO UD PRN; Protocol PRN Reason: Hypoglycemia Protocol Stop: 04/10/21 20:44 Guaifenesin (Guaifenesin 600 Mg Tabcr) 600 mg PO Q12 [facility] Stop: 04/11/21 08:59 Last Admin: 03/18/21 07:40 Dose: 600 mg Documented by: Insulin Aspart (Insulin Aspart 100 Units/Ml 3 Ml Pen) 0 units SC 0730 [facility]; Protocol Stop: 04/17/21 07:29 Last Admin: 03/18/21 08:45 Dose: 22 units Documented by: Insulin Aspart (Insulin Aspart 100 Units/Ml 3 Ml Pen) 0 units SC TID@1130,1630,2100 [facility]; Protocol Stop: 04/16/21 16:29 Last Admin: 03/17/21 21:36 Dose: 2 units Documented by: Insulin Glargine (Insulin Glargine Solostar 100 Units/Ml 3 Ml Pen) 0 units SC BID [facility]; Protocol Stop: 04/16/21 20:59 Last Admin: 03/18/21 08:49 Dose: 40 units Documented by: Ipratropium [place] (Ipratropium [place] Hfa Inhaler) 2 puffs INH Q4H PRN PRN Reason: Shortness Of Breath Or Wheezing Stop: 04/10/21 20:44 Levothyroxine Sodium (Levothyroxine Sodium 125 Mcg Tablet) 250 mcg PO DAILYBB [facility] Stop: 04/11/21 06:29 Last Admin: 03/18/21 06:02 Dose: 250 mcg Documented by: Lorazepam (Lorazepam 0.5 Mg Tab) 0.5 mg PO QDL [facility] Stop: 04/11/21 11:29 Last Admin: 03/17/21 13:10 Dose: 0.5 mg Documented by: Lorazepam (Lorazepam 1 Mg Tab) 1 mg PO HS [facility] Stop: 04/10/21 20:59 Last Admin: 03/17/21 21:26 Dose: 1 mg Documented by: Melatonin (Melatonin 3 Mg Tab) 9 mg PO HSZ PRN PRN Reason: Sleep Stop: 04/10/21 21:16 Last Admin: 03/16/21 22:06 Dose: 9 mg Documented by: Mirabegron (Mirabegron Er 25 Mg Tab) 50 mg PO DAILY [facility] Stop: 04/11/21 08:59 Last Admin: 03/18/21 07:43 Dose: 50 mg Documented by: Mirtazapine (Mirtazapine Soltab 15 Mg) 45 mg PO HS [facility] Stop: 04/10/21 20:59 Last Admin: 03/17/21 21:26 Dose: 45 mg Documented by: Miscellaneous (Restasis~Order Awaiting Action) 1 ea N/A QS [facility] Stop: 04/11/21 07:59 Last Admin: 03/18/21 07:34 Dose: Not Given Documented by: Miscellaneous (Carbohydrates For Hypoglycemia ) 15 - 30 gm PO UD PRN PRN Reason: Hypoglycemia Protocol Stop: 04/10/21 20:44 Miscellaneous Information (Pharmacy Glycemic Mgmt Consult) 1 ea N/A UD PRN; Protocol PRN Reason: Consult Stop: 04/10/21 20:57 Montelukast Sodium (Montelukast Sodium 10 Mg Tablet) 10 mg PO QPM [facility] Stop: 04/10/21 20:59 Last Admin: 03/17/21 21:26 Dose: 10 mg Documented by: Multivitamins (Multivitamin Tab) 1 tab PO QAM [facility] Stop: 04/11/21 08:59 Last Admin: 03/18/21 07:45 Dose: 1 tab Documented by: Multivitamins/Minerals (Calcium 600mg + Vit D 400 Iu Tab) 1 tab PO BID [facility] Stop: 04/10/21 20:59 Last Admin: 03/18/21 07:45 Dose: 1 tab Documented by: Nystatin (Nystatin Cr 15 Gm Tube) 1 appln EXT DAILY PRN PRN Reason: AFFECTED SKIN Stop: 04/16/21 10:44 Ondansetron HCl (Ondansetron Inj 2 Mg/Ml 2 Ml Vial) 4 mg IV Q6H PRN PRN Reason: Nausea Stop: 04/10/21 20:44 Last Admin: 03/12/21 19:54 Dose: 4 mg Documented by: Pantoprazole Sodium (Pantoprazole 40 Mg Tab) 40 mg PO QAM [facility] Stop: 04/11/21 08:59 Last Admin: 03/18/21 07:43 Dose: 40 mg Documented by: Polyethylene Glycol (Polyethylene (Miralax) 17 Gm Pack) 17 gm PO DAILY PRN PRN Reason: Constipation Stop: 04/10/21 20:44 Last Admin: 03/14/21 18:19 Dose: 17 gm Documented by: Potassium Chloride (Potassium Chloride Crtab 20 Meq Tabcr) 40 meq PO BID17 [facility] Stop: 04/10/21 20:59 Last Admin: 03/18/21 07:57 Dose: 40 meq Documented by: Sertraline HCl (Sertraline Hcl 100 Mg Tablet) 100 mg PO QAM [facility] Stop: 04/11/21 08:59 Last Admin: 03/18/21 07:44 Dose: 100 mg Documented by: Tamsulosin HCl (Tamsulosin Hcl 0.4 Mg Cap) 0.4 mg PO HS [facility] Stop: 04/10/21 20:59 Last Admin: 03/17/21 21:26 Dose: 0.4 mg Documented by: Tramadol HCl (Tramadol Hcl 50 Mg Tablet) 50 mg PO Q12H PRN PRN Reason: Pain Stop: 04/10/21 20:44 Last Admin: 03/13/21 08:53 Dose: 50 mg Documented by: Vitamin D (Cholecalciferol 1,000 Units 25 Mcg Tab) 1,000 units PO DAILY [facility] Stop: 04/11/21 08:59 Last Admin: 03/18/21 07:41 Dose: 1,000 units Documented by: PG Care Time/CCT Total # of Minutes Spent Total Time Spent with Patient: Total time spent is greater than 50% in coordination of care (as documented) at patient's floor/unit and/or counseling patient: Coding Level of Care Code 87188 Subseq Hosp Care Lvl 3 Diagnoses Acute on chronic diastolic (congestive) heart failure I50.33 Cellulitis L03.90 Chronic diastolic congestive heart failure I50.32 Pneumonia J18.9 Laterality: unspecified laterality Lung location: unspecified part of lung Pneumonia type: due to unspecified organism Urinary tract infection N39.0 Hematuria presence: without hematuria Urinary tract infection type: site unspecified Type 2 diabetes mellitus with other circulatory complications E11.59 Anemia D64.9 Asthma J45.909 Atrial flutter, paroxysmal I48.92 CAD (coronary artery disease) I25.10 Coronary Disease-Associated Artery/Lesion type: [place] artery [place] vs. transplanted heart: [place] heart Associated angina: without angina Chronic interstitial cystitis N30.10 Depression with anxiety F41.8 GERD (gastroesophageal reflux disease) K21.9 History of pulmonary embolism Z86.711 Hypertension I10 Hypertension type: essential hypertension Hypothyroidism E03.9 Insomnia G47.00 Incomplete bladder emptying R33.9 YARI (obstructive sleep apnea) G47.33 Osteoporosis M81.0 DVT prophylaxis Z29.9 (1) Pneumonia Laterality: unspecified laterality Lung location: unspecified part of lung Pneumonia type: due to unspecified organism Qualified Code(s): J18.9 - Pneumonia, unspecified organism (2) Urinary tract infection Hematuria presence: without hematuria Urinary tract infection type: site unspecified Qualified Code(s): N39.0 - Urinary tract infection, site not specified (3) CAD (coronary artery disease) Coronary Disease-Associated Artery/Lesion type: [place] artery [place] vs. transplanted heart: [place] heart Associated angina: without angina Qualified Code(s): I25.10 - Atherosclerotic heart disease of [place] coronary artery without angina pectoris (4) Hypertension Hypertension type: essential hypertension Qualified Code(s): I10 - Essential (primary) hypertension
[2021-03-18] MEDS: LORazepam 0.5 MG TAB PO SCH (10:50)
[2021-03-18] MEDS: diphenhydrAMINE Capsule 25 MG CAP PO PRN ×2 (10:50→21:33)
[2021-03-18] MEDS: ACETAMINOPHEN 500 MG TAB PO PRN (21:33)
[2021-03-18] MEDS: traMADol HCL 50 MG TABLET PO PRN (21:33)
[2021-03-18] MEDS: TAMSULOSIN HCL 0.4 MG CAP PO SCH (21:33)
[2021-03-18] MEDS: AMITRIPTYLINE HCL 50 MG TAB PO SCH (21:33)
[2021-03-18] MEDS: LORazepam 1 MG TAB PO SCH (21:33)
[2021-03-18] MEDS: MIRTAZAPINE SOLTAB 15 MG PO SCH (21:34)
[2021-03-18] MEDS: DONEPEZIL HCL 5 MG TAB PO SCH (21:34)
[2021-03-18] MEDS: MONTELUKAST SODIUM 10 MG TABLET PO SCH (21:34)
[2021-03-19] MEDS: RESTASIS~ORDER AWAITING ACTION SCH ×2 (00:05→09:23)
[2021-03-19 08:45] LABS: BUN Creatinine Ratio 19.1 (10-20); Calcium 8.9 mg/dl (8.5-10.1); Creatinine Clr Calc Pharmacy 59.5 ml/min; Est GFR (African American) 66.4 ml/min; Est GFR (Non-African American) 57.3 ml/min; Potassium 3.2 mmol/L (3.5-5.1)
[2021-03-19] MEDS: AMOXICILLIN/CLAVULANATE 875 MG TAB PO SCH (09:22)
[2021-03-19] MEDS: BUMETANIDE 1 MG TAB PO SCH (09:23)
[2021-03-19] MEDS: FAMOTIDINE 20 MG TAB PO SCH (09:23)
[2021-03-19] MEDS: guaiFENesin 600 MG TABCR PO SCH (09:23)
[2021-03-19] MEDS: SERTRALINE HCL 100 MG TABLET PO SCH (09:23)
[2021-03-19] MEDS: CHOLECALCIFEROL 1,000 UNITS 25 MCG TAB PO SCH (09:23)
[2021-03-19] MEDS: PANTOprazole 40 MG TAB PO SCH (09:23)
[2021-03-19] MEDS: APIXABAN 5 MG TABLET PO SCH (09:23)
[2021-03-19] MEDS: AMITRIPTYLINE HCL 25 MG TAB PO SCH (09:23)
[2021-03-19] MEDS: DULoxetine HCL 60 MG CAP PO SCH (09:23)
[2021-03-19] MEDS: ATENOLOL 25 MG TABLET PO SCH (09:23)
[2021-03-19] MEDS: MULTIVITAMIN TAB PO SCH (09:23)
[2021-03-19] MEDS: DOXEPIN HCL 10 MG CAPSULE PO SCH (09:23)
[2021-03-19] MEDS: MIRABEGRON ER 25 MG TAB PO SCH (09:23)
[2021-03-19] MEDS: CETIRIZINE HCL 10 MG TABLET PO SCH (09:24)
[2021-03-19] MEDS: FLUTICASONE/VILANTEROL 100/25MCG 14 PUFFS/INHALER INH SCH (09:24)
[2021-03-19] MEDS: CALCIUM 600MG + VIT D 400 IU TAB PO SCH (09:25)
[2021-03-19] MEDS: GABAPENTIN 300 MG CAP PO SCH (09:25)
[2021-03-19] MEDS: POTASSIUM CHLORIDE CRTAB 20 MEQ TABCR PO SCH (09:30)
[2021-03-19] MEDS: INSULIN ASPART 100 UNITS/ML 3 ML PEN SC SCH ×2 (09:32→12:30)
[2021-03-19] MEDS: LEVOTHYROXINE SODIUM 125 MCG TABLET PO SCH (09:56)
[2021-03-19] MEDS: INSULIN GLARGINE SOLOSTAR 100 UNITS/ML 3 ML PEN SC SCH (09:57)
--- NOTE | 2021-03-19 10:08 | Discharge Summary ---
Date of Service March 19, 2021 Admission HPI Per Admitting Provider This patient is an 80-year-old female who presents from [facility] who presents with productive cough and dyspnea on exertion worsening over the last week who was found to have "fluid around my lung" on an outside chest x-ray at her personal retirement and was reported to be hypoxic prior to arrival however here she is not hypoxic. She is also noted increased swelling in her legs and more redness in the right leg. She reports her blood sugar was 500 at her personal retirement this morning. She denies any fevers or chills, no chest pain but has felt tightness in her chest for a couple of weeks that is constant. She reports she has not weighed herself in the last few days and does not know if she has gained more weight. Review of her weights at the hospital show that she is up 13 kg since September, and up at least 30 kg since last year. She has a history of indwelling Chambers catheter for uterine prolapse and urinary retention which was just exchanged on 03/05, chronic diastolic CHF, HTN, paroxysmal atrial flutter on apixaban, DM 2, chronic interstitial cystitis, chronic hyponatremia, constipation, hyperlipidemia, hypothyroidism, YARI on CPAP, migraine headaches, PAD, PE, TIA, dementia, GERD, depression/anxiety, mild nonobstructive CAD, peripheral neuropathy, IBS, osteoporosis, iron deficiency anemia, hypokalemia, recurrent UTI. In the ER, she was found to have a low-grade temperature of 37.6 C, she had mild tachycardia, no tachypnea, pulse ox was 92-97% on room air, and blood pressures were normal to mildly elevated. She was found to have a leukocytosis of 14, hyperglycemia with glucose of 306, corrected sodium of 130 which is at her baseline, elevated ESR and CRP, and urinalysis which appeared infected however she has a chronic indwelling Chambers catheter. Her Covid-19 test was negative. Lactate was normal at 1.4, troponin negative, and procalcitonin was normal. A chest x-ray showed interstitial thickening suggestive of mild pulmonary edema as well as a mild left lower lung opacity possibly consistent with pneumonia. In the ER, she was treated with IV Zosyn, 500 mL of normal saline, and 4 units of IV regular insulin. She will be admitted for acute on chronic diastolic CHF, possible pneumonia, and right lower extremity cellulitis plus/minus Chambers catheter associated UTI. Principal Diagnosis Acute on chronic diastolic heart failure Discharge Exam Constitutional well developed, well nourished, + obese and + edematous Neck trachea midline, no thyromegaly + thick neck Respiratory normal respiratory effort, lungs clear to auscultation Cardiovascular Rate/Rhythm: regular rate and regular rhythm Heart Sounds: normal S1 and normal S2; no murmur Vessels: no JVD Extremities: normal capillary refill and + edema (pitting to mid shins) Gastrointestinal (Abdomen) normal bowel sounds, soft, nontender, no hepatosplenomegaly Musculoskeletal no cyanosis or clubbing, extremities motor strength 5/5 Skin + erythema (lower extremities bilaterally, warm but not hot, mildly tender) Neurologic patellar DTR's 2+ bilat, sensation intact and PERRL, EOMI, accommodation nl, no face palsy, no dysarthria Psychiatric A+Ox3, euthymic affect Lymphatic no cervical or axillary lymphadenopathy Discharge Data Allergies Allergy/AdvReac Type Severity Reaction Status Date / Time KODAK Inhibitors Allergy Unknown Unknown Verified 03/11/21 15:21 benson Allergy Unknown Unknown Verified 03/11/21 15:21 grass pollen Allergy Unknown Unknown Verified 03/11/21 15:21 miconazole [From Monistat 3] Allergy Unknown Unknown Verified 03/11/21 15:21 perfume Allergy Unknown Unknown Verified 03/11/21 15:21 skin cleanser combination Allergy Unknown Unknown Verified 03/11/21 15:21 no.17 [From Monistat 3] quetiapine [From Seroquel] AdvReac Intermediate Night Verified 03/11/21 15:21 terrors Consultations 03/11/21 15:44 ED Decision to Admit Stat 03/13/21 09:15 Consult Pulmonology Routine Ordered Studies 03/13/21 13:03 CT chest diagnostic wo con Routine Hospital Course (1) Acute on chronic diastolic (congestive) heart failure: volume overloaded, peripheral edema continue Bumex 2mg PO BID, Cr is stable, below 1 weight down to 124kg baseline weight is around 121-122kg recommend Bumex 2mg PO BID for two more days then would continue on Bumex 1mg BID for maintenance follow BMP periodically discussed compression wraps with patient and daughter, she has tried them in the past, cause discomfort she refuses them, wants quality of life over quantity follow fluid restriction and low salt diet (2) Cellulitis: Presents with low-grade fever, worsening swelling and erythema of the right leg, tachycardia, leukocytosis. No open wounds Cellulitis likely exacerbated with lower extremity edema skin is red, but not hot, mild tenderness IV site went bad, change to Augmentin and monitor clinical improvement continue for 5 more days Cr is <1, continue Bumex 2mg PO BID for two more days daily weights, weight down 4kg from two days ago (3) Chronic diastolic congestive heart failure: Patient does appear to have some right sided heart failure, (acute on chronic diastolic HF, see above) Her wheezing could be multifactorial with being obese, as well as having some underlying lung issue. She is going to see Dr. Ferris as an outpatient. Family is requesting a consult with Dr. Ferris while she is here This was completed. Appreciate inpuit from pulmonary. Breo was started. Wheezing has improved. (4) Pneumonia: With productive cough, fever, tachycardia, leukocytosis as above-chest x- ray with possible left lower lobe infiltrate, but this may just be from pulmonary edema and not necessarily pneumonia. Other findings may be from her cellulitis as above. has a dry cough but breathing comfortably difficult to rule out pneumonia but feel that cellulitis and volume overload are more likely her issues continue Augmentin for cellulitis that will cover lungs as well (5) Urinary tract infection: Urinalysis is abnormal but patient has chronic indwelling Chambers catheter Do not suspect she needs treatment for UTI at this time however is on antibiotics as above for cellulitis Follow urine culture, blood cultures Chambers catheter exchanged by RN on 03/17 she typically follows with urology and gets chambers exchanged by RN in the office once a week (6) Type 2 diabetes mellitus with other circulatory complications: Hemoglobin A1c 8.0% in 11/2020 With significant hyperglycemia here On high doses of NPH 70/30 3 times daily as an outpatient -Consult pharmacy -Start Lantus 15 units twice daily and use NovoLog supplemental insulin Check hemoglobin A1c: 9.2 (7) Anemia: Has been mildly low in the past but is normal for the last year and a half (8) Asthma: No acute issues Continue rescue inhalers as needed appreciate pulm consult, started Breo has appt with Dr. Ferris in April (9) Atrial flutter, paroxysmal: In sinus rhythm here Follow on telemetry Continue apixaban, atenolol (10) CAD (coronary artery disease): Noted to be nonobstructive on remote cath Troponin negative here, no acute issues (11) Chronic interstitial cystitis: Continue methenamine, has chronic indwelling Chambers catheter Continue amitriptyline Is also on chronic tramadol as needed (12) Depression with anxiety: Pretty significant and follows with psychiatry, Dr. Mckenzie as an outpatient Is on numerous psychiatric medications to include amitriptyline, doxepin, duloxetine, Haldol as needed, lorazepam, mirtazapine, and sertraline Was also recently put on diphenhydramine to help with itching With polypharmacy-discussed with patient and her daughter, she has been tried to reduce her medications with PCP and has been unsuccessful (13) GERD (gastroesophageal reflux disease): Continue pantoprazole daily, Pepcid (14) History of pulmonary embolism: Is on Eliquis for atrial flutter as above (15) Hypertension: Blood pressure is mildly elevated here Continue home atenolol -Diuresing as above with Bumex (16) Hypothyroidism: TSH 4.4 in 09/2020 Is on very high dose of levothyroxine May have difficulty with absorption due to bowel edema from significant volume overload TSH here is 4.6 (17) Insomnia: Severe, reports she only sleeps from 11:30 PM to 3:30 in the morning every night Continue home medications as per psychiatry (18) Incomplete bladder emptying: With Chambers catheter in place Is on Myrbetriq (19) YARI (obstructive sleep apnea): Continue CPAP although she reports she has been noncompliant with this at home Ordered for here and she is willing to use it (20) Osteoporosis: Noted (21) Goals of care, counseling/discussion: completed a POLST form prior to discharge she wishes to be DNR, would be okay with coming to hospital but would not want ICU level of care with lines and intubation she is okay receiving antibiotics for infections she would NOT want any trial of tube feeds or artificial hydration other than standard IV fluids POLST sent with her to personal retirement Total Time Total Time Spent Total Time Spent (In Minutes): 35 Total Time Includes: Examination of the Patient, Discharge Planning, Medication Reconciliation and Communication With Other Providers Discharge Plan Discharge Items Patient Disposition: Personal Snf Reason For Visit: CHF, CELLULITIS, ?PNA Discharge Diagnosis: Acute on chronic diastolic heart failure and right sided heart failure Cellulitis Condition on Discharge: Good Goals: continue Bumex twice a day to keep fluids off monitor kidney function Activity: Resume your previous activity Weightbearing: Full weightbearing Non-emergency contact: Primary Care Provider Call non-emergency contact if: you have any medication questions Follow-up/Referrals: Grows Up, [facility] [Primary Care Provider] - (one week) Diet: Carb Consistent or DM2 and Heart Healthy Fluids: 1800ml (7 cups) Addtl Attending Provider Instructions: Medications: - BUMEX: increased from 1mg daily to 2mg twice a day with good response, weight going down and creatinine is stable suspect you should take 2mg twice a day for two more days, recommend going do wn to 1mg twice a day on 03/22/21 and continue that dose group home - POTASSIUM CHLORIDE: take 40mEq three times a day for the next two days, go back to 40mg twice a day on 03/22/21 - AUGMENTIN: complete 5 more days for lower extremity cellulitis - JOSÉ MIGUEL KERR: started this admission by pulmonology, continue one inhalation daily Acute on chronic diastolic heart failure as well as right sided heart failure responded well to Bumex 2mg PO twice a day, renal function is stable, weight down to 124kg today per prior records, she has been as low as 121-122kg in the past, I think that 122kg is a decent target for baseline weight for her recommend that you continue Bumex 2mg PO twice a day on 03/20 and 03/21 and then reduced to 1mg twice a day starting 03/22 for maintenance she should be weighed daily to make sure she is not gaining weight if she goes above 123kg (270.6lbs) then would increase to 2mg twice a day in order to get back to 122kg (268.4lbs) continue fluid restriction of 1800mL a day, which is 7 cups or 56 fluid ounces, this includes water, juice, tea, soda, coffee, etc Lower extremity cellulitis: difficult to determine if this was cellulitis vs chronic venous stasis changes, lymphedema changes finish 5 more days of Augmentin Call 911 and go to the Emergency Room if: * You have tightness or pain in your chest that does not go away with rest or Nitroglycerin * You are very short of breath even with rest Call your doctor if any of the following symptoms or problems start or get worse: * Shortness of breath or difficulty breathing * Wake up at night short of breath * Chest pain * Cough * Swelling of your hands, fee, or legs * More fatigued or tired with your normal activity * Palpitations - sudden fast heart beats WEIGHT * Weigh yourself every morning after using the bathroom. * Use the same scale. * Wear the same amount of clothing. * Write your weight down on your chart. * Call your doctor if you gain more than 2-3 pounds in 1-2 days. MEDICATIONS * Use this discharge instruction sheet for instructions. * Take your medications at the time your doctor ordered. * Do not skip a dose of your medicines. * If you miss a dose of medicine, take as soon as possible, but DO NOT DOUBLE A DOSE. * Read your medicine information when you get home. * Know all of the side effects of your medicine. * Call your doctor's office if you have any side effects. * Be sure all of your doctors know what medicine and herbs you take (including cold, flu, and herbal medicine). * Pain Medicine: If you do not get relief from your pain, please call your doctor for help. Take the following with you to your follow-up doctor appointments: * Weight Chart * Medication List * List of questions Do not drink excessive alcohol, beer or wine. Pending Studies at Discharge: No Stand-Alone Forms: My Genometry, Smoking Cessation Skilled Items Patient informed of condition?: Yes DNR: Yes Discharge Level of Care: Other Communicable Disease: No Discharge Prognosis: Stable Lines: None Urinary Catheter: Yes Medications and DC Order Prescriptions: New potassium chloride [Klor-Con M20] 20 mEq Tablet,Er Particles/Crystals 40 meq PO TID 30 Days Qty: 180 RF: 0 bumetanide 1 mg Tablet 2 mg PO BID 30 Days Qty: 120 RF: 0 amoxicillin-pot clavulanate [Augmentin] 875-125 mg Tablet 1 tab PO BIDM 5 Days Qty: 10 RF: 0 Breo Ellipta 100-25 mcg/dose Blister With Device 1 inh inhalation DAILY 30 Days Qty: 60 RF: 3 Continued (DME) Novofine Autocover 30 gauge x 1/3" needle See Rx Instructions .ROUTE .MEDSUPPLY Qty: 200 RF: 3 conjugated estrogens 0.625 mg/gram cream 1 applic topical 3XWK Qty: 30 RF: 3 nystatin 100,000 unit/gram powder 1 applic TOPICAL BID Qty: 60 RF: 6 tamsulosin [Flomax] 0.4 mg capsule 0.4 mg PO HS Qty: 90 RF: 3 levothyroxine 125 mcg tablet 250 mcg PO QAM Qty: 180 RF: 3 atenolol 25 mg tablet 25 mg PO DAILY Qty: 90 RF: 3 albuterol sulfate [ProAir HFA] 90 mcg/actuation HFA aerosol inhaler 2 puff INHALATION Q4 PRN (Reason: Shortness Of Breath) Qty: 18 RF: 0 nystatin-triamcinolone 100,000-0.1 unit/gram-% ointment 1 applic TOP TID Qty: 30 RF: 2 (DME) OneTouch Ultra Blue Test Strip Strip See Rx Instructions .ROUTE .MEDSUPPLY Qty: 180 RF: 3 famotidine 20 mg tablet 20 mg PO BID Qty: 180 RF: 3 tramadol 50 mg tablet 50 mg PO Q12H PRN (Reason: Pain) Qty: 60 RF: 5 Novolin 70-30 FlexPen U-100 100 unit/mL (70-30) insulin pen See Rx Instructions SQ TIDM Qty: 15 RF: 3 Eliquis 5 mg tablet 5 mg PO BID Qty: 180 RF: 3 montelukast 10 mg tablet 10 mg PO QPM Qty: 90 RF: 3 (DME) lancets [ReadyLance Safety Lancets] 30 gauge misc See Rx Instructions .ROUTE .MEDSUPPLY Qty: 200 RF: 5 gabapentin 300 mg capsule 300 mg PO TID Qty: 90 RF: 5 Myrbetriq 50 mg tablet extended release 24 hr 50 mg PO DAILY Qty: 90 RF: 3 methenamine hippurate 1 gram tablet 1 g PO QPM Qty: 90 RF: 3 melatonin 10 mg capsule 10 mg PO HS RF: 0 diphenhydramine HCl [Allergy (diphenhydramine)] 25 mg capsule 25 mg PO TID PRN (Reason: Itching) RF: 0 donepezil 5 mg Tablet 5 mg PO HS RF: 0 duloxetine 60 mg Capsule,Delayed Release(Dr/Ec) 60 mg PO BID RF: 0 polyethylene glycol 3350 [Miralax] 17 gram Powder In Packet 17 g PO DAILY PRN (Reason: Constipation) RF: 0 acetaminophen [Tylenol Extra Strength] 500 mg Tablet 1,000 mg PO Q8 PRN (Reason: Pain) RF: 0 Restasis 0.05 % Dropperette 1 drp OPB BID RF: 0 guaifenesin [Mucinex] 600 mg Tablet Extended Release 12hr 600 mg PO Q12H PRN (Reason: Congestion) RF: 0 ketoconazole 2 % Shampoo 1 ea TOPICAL 2XWK RF: 0 Systane Ultra 0.4-0.3 % Drops 1 drp OPHTHALMIC (EYE) TID RF: 0 lorazepam 0.5 mg tablet 0.5 mg PO QDL RF: 0 mirtazapine 45 mg tablet 45 mg PO HS RF: 0 vitamin B complex Tablet 1 tab PO DAILY RF: 0 triamcinolone acetonide 0.1 % cream 1 applic TOPICAL BID PRN (Reason: dermatitis) RF: 0 Systane Gel 0.3 % Gel 1 drp OPB HS RF: 0 ferrous sulfate [Iron (ferrous sulfate)] 325 mg (65 mg iron) Tablet 1 tab PO 3XWK RF: 0 multivitamin Tablet 1 tab PO QAM RF: 0 cetirizine [Zyrtec] 10 mg Tablet 10 mg PO DAILY RF: 0 minocycline 100 mg capsule 100 mg PO BID RF: 0 loperamide [Imodium A-D] 2 mg Tablet 1 mg PO DAILY PRN (Reason: Diarrhea) RF: 0 calcium carbonate-vitamin D3 600 mg(1,500mg) -200 unit Tablet 1 tab PO BID RF: 0 doxepin 10 mg capsule 10 mg PO DAILY RF: 0 amitriptyline 50 mg tablet 50 mg PO QPM RF: 0 amitriptyline 25 mg tablet 25 mg PO QAM RF: 0 magnesium hydroxide [Milk of Magnesia] 400 mg/5 mL Suspension 15 - 30 ml PO DAILY PRN (Reason: Constipation) RF: 0 lorazepam 1 mg tablet 1 mg PO HS RF: 0 glucosamine-chondroitin 750-600 mg Tablet 1,500 tab PO QAM RF: 0 Atrovent HFA 17 mcg/actuation Hfa Aerosol Inhaler 2 puff INHALATION QID PRN (Reason: Shortness Of Breath Or Wheezing) RF: 0 sertraline 100 mg tablet 100 mg PO QAM RF: 0 diclofenac sodium 1 % gel 2 g TOPICAL QID PRN (Reason: Pain) RF: 0 pantoprazole 40 mg tablet,delayed release (DR/EC) 40 mg PO QAM RF: 0 Discontinued bumetanide 1 mg tablet 1 mg PO DAILY Qty: 90 RF: 3 haloperidol [Haldol] 5 mg Tablet 5 mg PO DAILY RF: 0 potassium chloride 20 mEq tablet,ER particles/crystals 40 meq PO BID RF: 0 Discharge Orders: Discharge Order (Routine); Ordered 03/19/21 Ordered By: Adarsh Rivero Admission Data Admit Date/Time: 03/11/21 17:24 Attending Provider: Adarsh Rivero Admit Provider: Susana Weber Primary Care Provider: Juan Cortes,[facility] Other Providers: Susana Weber ; Buck Ferris Other Interventions: Discharge Summary Assessment (RN) Last Done: 03/19/21 10:41 Coding Level of Care Code D/C Day Management >30 mins Diagnoses Acute on chronic diastolic (congestive) heart failure I50.33 Cellulitis L03.90 Chronic diastolic congestive heart failure I50.32 Pneumonia J18.9 Laterality: unspecified laterality Lung location: unspecified part of lung Pneumonia type: due to unspecified organism Urinary tract infection N39.0 Hematuria presence: without hematuria Urinary tract infection type: site unspecified Type 2 diabetes mellitus with other circulatory complications E11.59 Anemia D64.9 Asthma J45.909 Atrial flutter, paroxysmal I48.92 CAD (coronary artery disease) I25.10 Associated angina: without angina Coronary Disease-Associated Artery/Lesion type: [place] artery [place] vs. transplanted heart: [place] heart Chronic interstitial cystitis N30.10 Depression with anxiety F41.8 GERD (gastroesophageal reflux disease) K21.9 History of pulmonary embolism Z86.711 Hypertension I10 Hypertension type: essential hypertension Hypothyroidism E03.9 Insomnia G47.00 Incomplete bladder emptying R33.9 YARI (obstructive sleep apnea) G47.33 Osteoporosis M81.0 Goals of care, counseling/discussion Z71.89
[2021-03-19] MEDS: LORazepam 0.5 MG TAB PO SCH (12:30)
== END 2021-03-19 14:22 | disposition home or self-care (01) | DRG 291 ==
LOC: ED 12:39 → 2W 17:24 → SUATTDRO 17:24 → 2W 20:26 → 2N 03-14 00:40

== ENCOUNTER 2024-12-31 10:54 | Observation (INO) ==
--- NOTE | 2024-12-31 11:09 | Emergency Department Note ---
Impression & Plan Chest pain, Chronic indwelling Bernal catheter ED Provider Note NAME: DAYNA AYALA AGE: 84 SEX: F : 1940 ARRIVES VIA: Ambulance INFORMANT: Patient, daughter ED PROVIDER(S): Jai Macario MD CHIEF COMPLAINT: Chest pain MEDICAL DECISION MAKING: Patient presents due to concern for chest pain. Currently chest pain-free. EKG with T wave versions anteriorly. IV was established and blood work was obtained. Initial week in was normal H&H and platelet count kidney function is unremarkable. Initial troponin negative. In light of the patient's improvement in symptoms with no recent provocative testing to believe the patient would benefit from admission. I did speak with Dr. Vences and the patient was admitted to medicine service. Discussion w/ other healthcare providers: Dr. Vneces inpatient medicine service Prior /Outside records reviewed: I reviewed part of a primary care visit from Dr. Dixon. Patient was seen for healthcare maintenance exam in October 24. Patient history of type 2 diabetes hypertension CAD with diastolic heart failure and chronic lower extremity swelling. Patient also with known history of A-fib on Eliquis 5 mg twice daily. Differential diagnosis: Cardiac ischemia, aortic dissection, pulmonary embolism, pneumothorax, pneumonia, pericarditis, myocarditis, GERD, cholecystitis, pancreatitis, musculoskeletal, as well as other pathologies were considered. Diagnostics, as interpreted by me: ECG: Sinus with first-degree AV block, prolonged UT, rate of 81, normal axis T wave inversion anteriorly but no obvious ST elevations also T wave version aVL. Cardiac monitoring: An order was placed for continuous cardiac monitoring. The monitor shows a rate of 85 with sinus rhythm. Patient was placed on pulse oximetry Medical decision rules: None Imaging studies: I informally interpreted the patient's chest x-ray with cardiomegaly and possible vascular congestion with formal report to follow. HPI: Patient presents due to concern for chest pain. Patient presents due to concern for exertional chest pain nonradiating. Substernal in nature which does improve with rest. The patient denies any sweatiness. Patient reportedly did receive nitro in around and did have improvement in symptoms. Patient denies any falls or trauma. No cough or fever. Patient in addition to nitro spray did receive aspirin and nebulizer. The patient states that her pain was 5 out of 10 but is currently resolved. Patient does have a known history of A-fib and does take Eliquis. PAST MEDICAL HISTORY: See Below PAST SURGICAL HISTORY: See Below SOCIAL HISTORY: See Below HOME MEDICATIONS: See Below ALLERGIES: See Below VITALS: See Below PHYSICAL EXAMINATION: GENERAL: NAD, non-toxic. EYE EXAM: Normal conjunctiva. PERRL, no anisocoria and EOM's grossly intact w/o pain. OROPHARYNX: Moist mucus membranes, grossly normal dentition. NECK: Trachea midline, no stridor. Supple, no nuchal rigidity, no adenopathy, non-tender. No signs of meningismus. FROM of the neck with good chin to chest and neck extension. LUNGS: Clear to auscultation. Normal chest wall mechanics. HEART: NSR, no MRG. ABDOMEN: Abdomen soft, non-tender, no masses, no rebound or guarding. BACK: No CVA TTP. SKIN: No rashes and no bruising. UPPER EXTREMITIES: Upper extremities are grossly normal. LOWER EXTREMITIES: Grossly normal, mild pretibial edema without calf pain or erythema. NEURO EXAM: A&O x3, cranial nerves II-XII grossly intact, normal speech, moves all 4 extremities. Past Med/Surg History Problem List (Updated 01/02/25 @ 14:52 by Jai Macario MD) Chest pain (Acute) Morbid obesity Chronic diastolic CHF (congestive heart failure) Type 2 diabetes mellitus Chronic indwelling Bernal catheter (Acute) Type 2 diabetes mellitus Chest pain Vitamin D deficiency Bleeding Mitral regurgitation Cor pulmonale Incomplete bladder emptying Chronic right-sided congestive heart failure Pulmonary nodules Hypomagnesemia Polypharmacy Generalized muscle weakness Dyspnea on exertion Venous stasis Cardiac valve prolapse (Chronic) Diabetic peripheral neuropathy associated with type 2 diabetes mellitus Chronic interstitial cystitis CAD (coronary artery disease) YARI (obstructive sleep apnea) (Chronic) Osteoporosis Declined further testing GERD (gastroesophageal reflux disease) Dementia Hypertension (Chronic) COPD (chronic obstructive pulmonary disease) Atrial flutter, paroxysmal (Acute) Chronic hyponatremia (Chronic) Morbid obesity with BMI of 45.0-49.9, adult Chronic daily headache BMI 45.0-49.9, adult Bowel incontinence Bulging lumbar disc Chronic constipation Chronic vulvitis Cystocele, midline Gait disturbance Gastroparesis Hematuria, microscopic Hyperlipidemia Hypothyroidism Lymphedema Rectocele Type 2 diabetes mellitus with other circulatory complications Urge and stress incontinence Allergic rhinitis Arthritis Asthma Depression with anxiety Dry eye syndrome of both lacrimal glands Foot deformity, bilateral Insomnia Irritable bowel syndrome Migraine headache Pessary maintenance Post-menopausal atrophic vaginitis Squamous cell carcinoma of skin Venous insufficiency Wears dentures Recurrent UTI (Acute) Esophageal reflux (Acute) Health care maintenance Obesity hypoventilation syndrome Hypokalemia Anticoagulant long-term use Abnormal PFT Medical History Complication, blocked Bernal catheter Cough Urinary tract infection History of pulmonary embolism Anemia Hyponatremia Chronic diastolic congestive heart failure Venous stasis ulcer limited to breakdown of skin without varicose veins Acute renal disease Right-sided congestive heart failure Hypercapnic respiratory failure Abnormal PFT Dyspnea Cellulitis Acute hyperglycemia Pneumonia Skin ulcer Rotator cuff tendonitis History of rotator cuff tear History of intestinal obstruction Memory loss Edema Diabetes with neurologic complications Cellulitis of lower leg Atherosclerotic heart disease of [place] coronary artery without angina pectoris Knee pain, bilateral Incontinence Pseudomonas aeruginosa infection Diastolic CHF, acute on chronic Acute metabolic encephalopathy Anemia, iron deficiency UTI (urinary tract infection) Confusion Sepsis Loss of sensation Foot pain Foot deformity Basal pneumonia of both lungs Balance disorder UTI (urinary tract infection) TIA (transient ischemic attack) Diabetes Surgical History History of surgery lysis of intestinal adhesions History of mandibular surgery repair of mandible with endosteal implant History of total hysterectomy H/O oral surgery History of knee replacement Cataract Family History Father Diabetes Prostate cancer Colon cancer Colorectal cancer Mother Diabetes Heart disease Brother Acute myocardial infarction Family/Other Cancer Colorectal cancer sibling Hypertension Other Emphysema lung Denies family history of Ovarian cancer Crohn's disease Breast cancer Lung disease Social History Smoking Status: Former smoker Tobacco Type: Cigarettes Age Started Using Tobacco: 17; Age Quit Using Tobacco: 30; packs per day: 1; Second Hand Exposure: No; Do You Dip or Chew Tobacco: No; Hx Alcohol Use: No Hx Substance Use: No Preferred Language: Thai Communication Ability: Effective Visual Impairment: No Limitations Hearing Ability: Normal Cotton Grower Required: No Beliefs That Will Affect Care: None marital status: / Current Living Situation: [facility] Current Living Situation Comment: living at [facility] current occupational status: retired How many Children do You have: 2 Feels Safe at Home: Yes Childhood Exposure to Second-Hand Smoke: No Diet: regular Dental Care, Regularly: Yes Physical Activity Frequency: Does not Exercise Seatbelt Use: always Sunscreen Use: Yes Assistive Devices: CPAP and Walker Allergies Allergies Allergy/AdvReac Type Severity Reaction Status Date / Time KODAK Inhibitors Allergy Unknown Unknown Verified 09/27/24 14:48 benson Allergy Unknown Unknown Verified 09/27/24 14:48 grass pollen Allergy Unknown Unknown Verified 09/27/24 14:48 miconazole [From Monistat 3] Allergy Unknown Unknown Verified 09/27/24 14:48 perfume Allergy Unknown Unknown Verified 09/27/24 14:48 skin cleanser combination Allergy Unknown Unknown Verified 09/27/24 14:48 no.17 [From Monistat 3] quetiapine [From Seroquel] AdvReac Intermediate Night Verified 09/27/24 14:48 terrors Home Meds Home Medications Medication Instructions Recorded Confirmed acetaminophen 500 mg tablet 1,000 mg PO Q8 PRN Pain 05/16/18 12/31/24 (Tylenol Extra Strength) cyclosporine 0.05 % eye drops in a 1 drp OPB BID 05/16/18 12/31/24 dropperette (Restasis) donepezil 5 mg tablet 5 mg PO HS 05/16/18 12/31/24 polyethylene glycol 3350 17 gram 17 g PO DAILY PRN Constipation 05/16/18 12/31/24 oral powder packet (Miralax) artificial tears(hypromellose) 0.3 1 drp OPB HS 12/12/18 12/31/24 % eye gel (Systane Gel) ferrous sulfate 325 mg (65 mg 1 tab PO 3XWK 01/20/19 12/31/24 iron) tablet (Iron (ferrous sulfate)) melatonin 10 mg capsule 10 mg PO HS 04/22/20 12/31/24 lorazepam 0.5 mg tablet 0.5 mg PO QDL 07/06/20 12/31/24 peg 400-propylene glycol 0.4 %-0.3 1 drp ophthalmic (eye) TID 07/06/20 12/31/24 % eye drops (Systane Ultra) mirtazapine 45 mg tablet 45 mg PO HS 09/20/20 12/31/24 lorazepam 1 mg tablet 1 mg PO HS 03/11/21 12/31/24 sertraline 100 mg tablet 100 mg PO QAM 03/11/21 12/31/24 cetirizine 10 mg tablet (Allergy 10 mg PO BID 06/01/23 12/31/24 Relief (cetirizine)) amitriptyline 100 mg tablet 100 mg PO QPM 11/08/23 12/31/24 calcium 600 mg (as 1 tab PO BID 11/08/23 12/31/24 carbonate)-vitamin D3 10 mcg (400 unit) tablet (Calcium 600 + D(3)) glucosamine sulfate 500 mg tablet 1,500 mg PO DAILY 11/08/23 12/31/24 (Glucosamine) hydroxyzine HCl 25 mg tablet 25 mg PO BID 11/08/23 12/31/24 magnesium hydroxide 400 mg/5 mL 2,400 - 4,800 mg PO DAILY PRN 11/08/23 12/31/24 oral suspension (Milk of Magnesia) Constipation multivitamin (Daily-Hipolito tablet) 1 tab PO QAM 11/08/23 12/31/24 diphenhydramine HCl 50 mg capsule 50 mg PO TID 06/05/24 12/31/24 (Banophen) diclofenac sodium 1 % topical gel 2 g topical QID PRN Pain 10/25/24 12/31/24 guaifenesin 600 mg tablet, 600 mg PO Q12H PRN Congestion 10/25/24 12/31/24 extended release 12 hr (Mucinex) bumetanide 2 mg tablet 4 mg PO QAM 12/31/24 12/31/24 Previous Rx's Medication Instructions Recorded duloxetine 60 mg capsule,delayed 60 mg PO BID #60 caps 05/06/21 release blood sugar diagnostic #180 ea 05/28/21 vitamin B complex 1 tab PO DAILY #90 tabs 01/04/22 blood-glucose meter (OneTouch #1 ea 06/16/22 Ultra2 Meter) pen needle, diabetic, safety 30 #300 ea 09/14/23 gauge x 1/3" (Novofine Autocover) ipratropium bromide 17 2 puff inhalation QID PRN 11/22/23 mcg/actuation HFA aerosol inhaler Shortness Of Breath Or Wheezing (Atrovent HFA) #12.9 grams lancets 30 gauge #300 ea 01/04/24 montelukast 10 mg tablet 10 mg PO HS #90 tabs 07/10/24 methenamine hippurate 1 gram tablet 1 g PO QPM #90 tabs 04/02/24 atenolol 50 mg tablet 50 mg PO DAILY #90 tabs 04/19/24 spironolactone 25 mg tablet 25 mg PO DAILY #90 tabs 05/14/24 nystatin 100,000 unit/gram topical 1 applic topical BID #180 grams 06/29/24 powder ketoconazole 2 % shampoo 1 ea topical 2XWK #120 mL 07/16/24 levothyroxine 100 mcg tablet 200 mcg (2 x 100 mcg) PO DAILY 07/16/24 #180 tabs pen needle,diabetic dual safty 30 #100 ea 07/16/24 gauge x 3/16" (Unifine SafeControl) famotidine 20 mg tablet 20 mg PO BID #180 tabs 07/31/24 tramadol 50 mg tablet 50 mg PO Q12H PRN Pain #60 tabs 08/06/24 conjugated estrogens 0.625 mg/gram 1,000 mg topical 3XWK #30 grams 08/17/24 vaginal cream insulin NPH-regular 70-30 U-100 See Rx Instructions .Route 08/29/24 insulin 100 unit/mL subcutaneous .COMPLEX #15 mL pen (Novolin 70-30 FlexPen U-100 Insulin) mirabegron 50 mg tablet,extended 50 mg PO DAILY #90 tabs 09/25/24 release 24 hr (Myrbetriq) pantoprazole 40 mg tablet,delayed 40 mg PO QAM #90 tabs 09/25/24 release Breo Ellipta 100 mcg-25 mcg/dose 1 inh inhalation DAILY 30 days #60 10/25/24 powder for inhalation (fluticasone ea furoate-vilanterol) albuterol sulfate 90 mcg/actuation 2 puff inhalation Q4 PRN Shortness 11/07/24 aerosol inhaler Of Breath #18 grams gabapentin 300 mg capsule 300 mg PO TID #90 caps 11/21/24 nystatin-triamcinolone 100,000 1 applic topical BID PRN itching 11/28/24 unit/gram-0.1 % topical ointment #60 grams apixaban 5 mg tablet (Eliquis) 5 mg PO BID #180 tabs 12/20/24 blood sugar diagnostic (OneTouch #300 ea 12/24/24 Ultra Test strips) cholecalciferol (vitamin D3) 50 50 mcg PO DAILY #5 mL 12/24/24 mcg/drop (2,000 unit/drop) oral drops potassium chloride 40 mEq/15 mL 20 meq (7.5 mL) PO BID #473 mL 12/27/24 oral liquid Results & Data (ED) Home Medications Current Medication List: was personally reviewed by me Laboratory Data Attestation: I reviewed the patient's lab results. 01/02/25 07:05 01/02/25 07:05 Lab Results 12/31/24 Range/Units 11:40 WBC 11.27 H (4.8-10.8) K/ul RBC 4.42 (4.20-5.40) M/uL Hgb 12.9 (12.0-16.0) g/dl Hct 38.8 (37.0-47.0) % MCV 87.8 (80.0-100.0) fL MCH 29.2 (25.0-34.0) pg MCHC 33.2 (32.0-36.0) g/dL RDW Std Deviation 44.9 (36.4-46.3) fL RDW Coeff of [place] 14.1 (11.5-14.5) % Plt Count 292 (130-400) K/uL MPV 10.1 (9.4-12.4) fL Immature Gran % (Auto) 0.5 % Neut % (Auto) 70.0 % Lymph % (Auto) 16.0 % Trigg % (Auto) 8.2 % Eos % (Auto) 4.9 % Baso % (Auto) 0.4 % Neut # (Auto) 7.89 H (1.40-6.50) K/uL Lymph # (Auto) 1.80 (1.20-3.40) K/uL Trigg # (Auto) 0.92 H (0.11-0.59) K/uL Eos # (Auto) 0.55 H (0.00-0.50) K/uL Baso # (Auto) 0.05 (0.00-0.20) K/uL Immature Gran # (Auto) 0.06 (0.01-0.20) K/uL PT 10.9 (9.0-12.0) Seconds INR 1.0 (0.9-1.1) APTT 31 (21-31) Seconds PTT Ratio 1.2 Sodium 132 L (136-145) mmol/L Potassium 4.6 (3.5-5.1) mmol/L Chloride 92 L (98-107) mmol/L Carbon Dioxide 34 H (21-32) mmol/L Anion Gap 6 (3-11) BUN 15 (6-23) mg/dl Creatinine 1.09 (0.6-1.2) mg/dl Est Cr Clr Drug Dosing Not Reportable eGFR 50.09 BUN/Creatinine Ratio 13.8 (10-20) Glucose 120 H (70-99(Fasting)) mg/dl Calcium 9.1 (8.6-10.3) mg/dl Total Bilirubin 0.3 (0.2-1.0) mg/dl AST 23 (13-39) U/L ALT 14 (7-52) U/L Alkaline Phosphatase 68 (34-104) U/L Troponin I High Sens 5.3 (0-14) pg/ml Total Protein 7.4 (6.0-8.3) gm/dl Albumin 3.9 (3.4-5.0) gm/dl Globulin 3.5 (2.5-4.0) gm/dl Albumin/Globulin Ratio 1.1 (0.9-2) Lipase 19 (11-82) U/L Administered Medications Discontinued Medications Acetaminophen (Acetaminophen 325 Mg Tab) 650 mg PO Q6H PRN PRN Reason: Headache Stop: 01/30/25 16:15 Last Admin: 01/02/25 08:16 Dose: 650 mg Documented By: Admin: 01/01/25 21:59 Dose: 650 mg Documented By: Admin: 01/01/25 00:57 Dose: 650 mg Documented By: BRITANY Amitriptyline HCl (Amitriptyline Hcl 100 Mg Tab) 100 mg PO QPM HAO Stop: 01/30/25 20:59 Last Admin: 01/01/25 20:40 Dose: 100 mg Documented By: Admin: 12/31/24 20:46 Dose: 100 mg Documented By: BRITANY Apixaban (Apixaban 5 Mg Tablet) 5 mg PO BID HAO Stop: 01/30/25 20:59 Last Admin: 01/02/25 08:17 Dose: 5 mg Documented By: Admin: 01/01/25 20:41 Dose: 5 mg Documented By: Admin: 01/01/25 11:45 Dose: 5 mg Documented By: Admin: 12/31/24 20:43 Dose: 5 mg Documented By: BRITANY Atenolol (Atenolol 50 Mg Tablet) 50 mg PO DAILY [facility] Stop: 01/31/25 08:59 Last Admin: 01/02/25 08:19 Dose: 50 mg Documented By: Admin: 01/01/25 11:42 Dose: 50 mg Documented By: GENEVIEVE Atropine Sulfate (Atropine Sulfate 0.1 Mg/Ml 10ml Syr) Confirm Administered Dose 2 mg IV .STK-MED ONE Stop: 01/01/25 13:11 Last Admin: 01/01/25 14:56 Dose: 1 mg Documented By: CAM Bumetanide (Bumetanide 1 Mg Tab) 4 mg PO QAM [facility] Stop: 01/31/25 08:59 Last Admin: 01/02/25 08:17 Dose: 4 mg Documented By: Admin: 01/01/25 11:42 Dose: 4 mg Documented By: GENEVIEVE Calcium/Vitamin D (Calcium 600mg + Vit D 400 Iu Tab) 1 tab PO DAILY [facility] Stop: 01/31/25 08:59 Last Admin: 01/02/25 08:19 Dose: 1 tab Documented By: Admin: 01/01/25 11:43 Dose: 1 tab Documented By: GENEVIEVE Dobutamine HCl (Dobutamine Hcl 12.5 Mg/Ml 20 Ml Vial) Confirm Administered Dose 250 mg IV .STK-MED ONE Stop: 01/01/25 13:13 Last Admin: 01/01/25 14:57 Dose: 1 dose Documented By: CAM Donepezil HCl (Donepezil Hcl 5 Mg Tab) 5 mg PO HS [facility] Stop: 01/30/25 20:59 Last Admin: 01/01/25 20:42 Dose: 5 mg Documented By: Admin: 12/31/24 20:44 Dose: 5 mg Documented By: BRITANY Duloxetine HCl (Duloxetine Hcl 60 Mg Cap) 60 mg PO BID HAO Stop: 01/30/25 20:59 Last Admin: 01/02/25 08:17 Dose: 60 mg Documented By: Admin: 01/01/25 20:41 Dose: 60 mg Documented By: Admin: 01/01/25 11:43 Dose: 60 mg Documented By: Admin: 12/31/24 20:44 Dose: 60 mg Documented By: BRITANY Famotidine (Famotidine 20 Mg Tab) 20 mg PO BID [facility]O Stop: 01/30/25 20:59 Last Admin: 01/02/25 08:20 Dose: 20 mg Documented By: Admin: 01/01/25 20:39 Dose: 20 mg Documented By: Admin: 01/01/25 11:47 Dose: 20 mg Documented By: Admin: 12/31/24 20:43 Dose: 20 mg Documented By: BRITANY Fluticasone/Vilanterol (Fluticasone/Vilanterol 100/25mcg 14 Puffs/Inhaler) 1 puffs INH DAILY HAO Stop: 01/31/25 08:59 Last Admin: 01/02/25 08:20 Dose: 1 puffs Documented By: Admin: 01/01/25 11:41 Dose: 1 puffs Documented By: GENEVIEVE Gabapentin (Gabapentin 300 Mg Cap) 300 mg PO TID [facility]O Stop: 01/30/25 20:59 Last Admin: 01/02/25 13:12 Dose: 300 mg Documented By: Admin: 01/02/25 08:19 Dose: 300 mg Documented By: Admin: 01/01/25 20:42 Dose: 300 mg Documented By: Admin: 01/01/25 15:23 Dose: 300 mg Documented By: Admin: 01/01/25 11:44 Dose: 300 mg Documented By: Admin: 12/31/24 20:44 Dose: 300 mg Documented By: BRITANY Sodium Chloride (Nss) 500 mls @ 999 mls/hr IV .Q31M ONE Stop: 12/31/24 12:29 Last Infusion: 12/31/24 12:59 Dose: Infused Documented By: Admin: 12/31/24 12:01 Dose: 999 mls/hr Documented By: JOANNE Insulin Aspart (Insulin Aspart Per Unit Charge) 0 units SC ACHS HAO Stop: 01/30/25 16:29 Last Admin: 01/02/25 12:52 Dose: 7 units Documented By: BARRINGTON Co-signed By: PA Admin: 01/02/25 09:06 Dose: 7 units Documented By: BARRINGTON Co-signed By: HOME Admin: 01/01/25 20:29 Dose: Not Given Documented By: Admin: 01/01/25 17:59 Dose: 6 units Documented By: GENEVIEVE Co-signed By: YVETTE Admin: 01/01/25 12:33 Dose: Not Given Documented By: Admin: 01/01/25 08:45 Dose: Not Given Documented By: Admin: 12/31/24 20:34 Dose: Not Given Documented By: Admin: 12/31/24 17:56 Dose: Not Given Documented By: ROSALIE Levothyroxine Sodium (Levothyroxine Sodium 200 Mcg Tablet) [facility]: 01/31/25 06:29 Last Admin: 01/02/25 06:21 Dose: 200 mcg Documented By: Admin: 01/01/25 05:30 Dose: 200 mcg Documented By: BRITANY Lorazepam (Lorazepam 1 Mg Tab) 1 mg PO [facility] Stop: 01/30/25 20:59 Last Admin: 01/01/25 20:40 Dose: 1 mg Documented By: Admin: 12/31/24 20:43 Dose: 1 mg Documented By: BRITANY Melatonin (Melatonin 3 Mg Tab) 3 mg PO [facility] Stop: 01/30/25 20:59 Last Admin: 01/01/25 20:40 Dose: 3 mg Documented By: Admin: 12/31/24 20:43 Dose: 3 mg Documented By: BRITANY Methenamine Hippurate (Methenamine Hippurate 1 Gm Tab) 1 gm PO QPM [facility]O Stop: 01/02/25 20:59 Last Admin: 01/01/25 20:40 Dose: 1 gm Documented By: Admin: 12/31/24 20:46 Dose: 1 gm Documented By: BRITANY Metoprolol Tartrate (Metoprolol Tartrate 1 Mg/Ml Vial) Confirm Administered Dose 10 mg IV .STK-MED ONE Stop: 01/01/25 13:11 Last Admin: 01/01/25 14:56 Dose: 10 mg Documented By: CAM Mirtazapine (Mirtazapine Soltab 15 Mg) 45 mg PO [facility] Stop: 01/30/25 20:59 Last Admin: 01/01/25 20:41 Dose: 45 mg Documented By: Admin: 12/31/24 20:45 Dose: 45 mg Documented By: BRITANY Miscellaneous (Carbohydrates For Hypoglycemia ) 15 - 30 gm PO UD PRN PRN Reason: Hypoglycemia Protocol Stop: 01/30/25 16:15 Last Admin: 12/31/24 17:33 Dose: 15 gm Documented By: Admin: 12/31/24 16:59 Dose: 15 gm Documented By: ROSALIE Montelukast Sodium (Montelukast Sodium 10 Mg Tablet) 10 mg PO [facility] Stop: 01/30/25 20:59 Last Admin: 01/01/25 20:43 Dose: 10 mg Documented By: Admin: 12/31/24 20:45 Dose: 10 mg Documented By: BRITANY Multi-Ingredient Cream (Artificial Tears Op Oint 3.5 Gm Tube) 1 appln OPB [facility] Stop: 01/30/25 20:59 Last Admin: 01/01/25 20:42 Dose: 1 appln Documented By: Admin: 12/31/24 20:48 Dose: 1 appln Documented By: BRITANY [facility]ivit[facility] ([facility]amin Tab) [facility]: 01/31/25 08:59 Last Admin: 01/02/25 08:19 Dose: 1 tab Documented By: Admin: 01/01/25 11:44 Dose: 1 tab Documented By: GENEVIEVE Pantoprazole Sodium (Pantoprazole 40 Mg Tab) 40 mg PO QAM [facility] Stop: 01/31/25 08:59 Last Admin: 01/02/25 08:19 Dose: 40 mg Documented By: Admin: 01/01/25 11:44 Dose: 40 mg Documented By: GENEVIEVE Potassium Chloride (Potassium Chloride Crtab 20 Meq Tabcr) 20 meq PO BID [facility] Stop: 01/30/25 20:59 Last Admin: 01/02/25 08:17 Dose: 20 meq Documented By: Admin: 01/01/25 20:39 Dose: 20 meq Documented By: Admin: 01/01/25 11:47 Dose: 20 meq Documented By: Admin: 12/31/24 20:43 Dose: 20 meq Documented By: BRITANY Sertraline HCl (Sertraline Hcl 100 Mg Tablet) 100 mg PO QAM [facility] Stop: 01/31/25 08:59 Last Admin: 01/02/25 08:18 Dose: 100 mg Documented By: Admin: 01/01/25 11:44 Dose: 100 mg Documented By: GENEVIEVE Spironolactone (Spironolactone 25 Mg Tab) 25 mg PO DAILY [facility] Stop: 01/31/25 08:59 Last Admin: 01/02/25 08:19 Dose: 25 mg Documented By: Admin: 01/01/25 11:45 Dose: 25 mg Documented By: GENEVIEVE Tramadol HCl (Tramadol Hcl 50 Mg Tablet) 50 mg PO Q12H PRN PRN Reason: Pain Stop: 01/30/25 16:15 Last Admin: 01/02/25 08:17 Dose: 50 mg Documented By: Admin: 01/01/25 21:59 Dose: 50 mg Documented By: Admin: 01/01/25 00:54 Dose: 50 mg Documented By: BRITANY Vibegron (Vibegron 75 Mg Tab) 75 mg PO DAILY [facility] Stop: 01/31/25 08:59 Last Admin: 01/02/25 08:18 Dose: 75 mg Documented By: Admin: 01/01/25 11:47 Dose: 75 mg Documented By: GENEVIEVE Vitamin B Complex (Vitamin B Complex Tab) 1 tab PO DAILY [facility] Stop: 01/31/25 08:59 Last Admin: 01/02/25 08:17 Dose: 1 tab Documented By: Admin: 01/01/25 11:45 Dose: 1 tab Documented By: GENEVIEVE Vitamin D (Cholecalciferol 25 Mcg (1000 Units) Tab) 50 mcg PO DAILY [facility] Stop: 01/31/25 08:59 Last Admin: 01/02/25 08:18 Dose: 50 mcg Documented By: Admin: 01/01/25 11:42 Dose: 50 mcg Documented By: GENEVIEVE Discharge Plan Visit Data Chief Complaint: Chest Pain Stated Complaint: CHEST PRESSURE ED Provider: Jai Macario Discharge Problem: Chest pain, Chronic indwelling Bernal catheter Patient Disposition: Admitted As Inpatient Discharge Instructions Interventions: ED Discharge Assessment Last Done: 12/31/24 16:03 Discharge Problem: Chest pain Qualifiers: Chest pain type: unspecified Qualified Code(s): R07.9 - Chest pain, unspecified
--- NOTE | 2024-12-31 11:29 | XRay Report ---
XR chest 1V portable HISTORY: 84 years-old Female Chest pain, nonspecific COMPARISON: 11/10/2023 TECHNIQUE: AP view of the chest FINDINGS: Cardiac silhouette is enlarged. Pulmonary vascular congestion with right hemidiaphragmatic elevation. Blunting of the costophrenic angles with mild subsegmental bibasilar densities. Bones appear grossly intact. IMPRESSION: 1. Cardiomegaly with pulmonary vascular congestion. 2. Probable trace pleural effusions with bibasilar atelectasis. 3. Chronic right hemidiaphragmatic elevation. ACT 112: Negative or not required by law. The above report was generated using voice recognition software. It may contain grammatical, syntax o r spelling errors. Electronically signed by: Job Baird M.D. 12/31/2024 11:28 AM
[2024-12-31] MEDS: SODIUM CHLORIDE 0.9% 500 ML IV ONE (12:01)
[2024-12-31 12:31] LABS: Basophils # (auto) 0.05 K/uL (0.00-0.20); Basophils % (auto) 0.4 %; Eosinophils # (auto) 0.55 K/uL (0.00-0.50); Eosinophils % (auto) 4.9 %; Hematocrit (blood only) 38.8 % (37.0-47.0); Hemoglobin 12.9 g/dl (12.0-16.0); Immature Granulocytes # (auto) 0.06 K/uL (0.01-0.20); Immature Granulocytes % (auto) 0.5 %; Mean Corpuscular Hemoglobin 29.2 pg (25.0-34.0); Mean Corpuscular Hgb Conc 33.2 g/dL (32.0-36.0); Mean Corpuscular Volume 87.8 fL (80.0-100.0); Mean Platelet Volume 10.1 fL (9.4-12.4); Monocytes # (auto) 0.92 K/uL (0.11-0.59); Monocytes % (auto) 8.2 %; Neutrophils # (auto) 7.89 K/uL (1.40-6.50); Platelet Count 292 K/uL (130-400); RDW Coefficient of Variation 14.1 % (11.5-14.5); RDW Standard Deviation 44.9 fL (36.4-46.3); Red Blood Count 4.42 M/uL (4.20-5.40); White Blood Count 11.27 K/ul (4.8-10.8)
[2024-12-31 12:44] LABS: Partial Thromboplastin Ratio 1.2; Partial Thromboplastin Time 31 Seconds (21-31); Prothrombin Time 10.9 Seconds (9.0-12.0)
[2024-12-31 13:14] LABS: Alanine Aminotransferase 14 U/L (7-52); Albumin Globulin Ratio 1.1 (0.9-2); Albumin Level 3.9 gm/dl (3.4-5.0); Alkaline Phosphatase 68 U/L (34-104); Anion Gap 6 (3-11); Aspartate Aminotransferase 23 U/L (13-39); BUN Creatinine Ratio 13.8 (10-20); Bilirubin,Total 0.3 mg/dl (0.2-1.0); Blood Urea Nitrogen 15 mg/dl (6-23); Calcium 9.1 mg/dl (8.6-10.3); Carbon Dioxide 34 mmol/L (21-32); Chloride 92 mmol/L (98-107); Globulin 3.5 gm/dl (2.5-4.0); Glucose 120 mg/dl (70-99(Fasting)); Lipase 19 U/L (11-82); Potassium 4.6 mmol/L (3.5-5.1); Sodium 132 mmol/L (136-145); Total Protein 7.4 gm/dl (6.0-8.3); Troponin I High Sensitivity 5.3 pg/ml (0-14)
--- NOTE | 2024-12-31 14:09 | History & Physical Report ---
Date of Service December 31, 2024 Assessment & Plan (1) Chest pain: Plan: Currently symptom-free. No acute EKG changes. Initial troponin normal. Telemetry. Observation. Serial troponins. Cardiac echo to evaluate for regional wall motion abnormalities (2) Type 2 diabetes mellitus: Plan: ADA diet. Sliding scale coverage for now (3) Chronic indwelling Bernal catheter: Plan: No evidence of gross hematuria. No sign of acute infection (4) Chronic diastolic CHF (congestive heart failure): Plan: No overt CHF upon admission. Monitor intake and output (5) Morbid obesity: Plan: BMI greater than 40. Significant weight loss recommended Plan Hopeful discharge to home tomorrow, January 01 History of Present Illness Chief Complaint: Chest discomfort Primary Care Provider: Jame Ruth MD 84-year-old white female with exertional chest discomfort which is nonradiating. She complains of a dull substernal chest discomfort while walking that resolves with rest. No radiation of the discomfort. No associated shortness of breath or diaphoresis. EKG on admission is negative for acute changes. First troponin is normal. She is now asymptomatic. She denies palpitations or syncope. She is placed in observation for further assessment Allergies Allergy/AdvReac Type Severity Reaction Status Date / Time KODAK Inhibitors Allergy Unknown Unknown Verified 09/27/24 14:48 benson Allergy Unknown Unknown Verified 09/27/24 14:48 grass pollen Allergy Unknown Unknown Verified 09/27/24 14:48 miconazole [From Monistat 3] Allergy Unknown Unknown Verified 09/27/24 14:48 perfume Allergy Unknown Unknown Verified 09/27/24 14:48 skin cleanser combination Allergy Unknown Unknown Verified 09/27/24 14:48 no.17 [From Monistat 3] quetiapine [From Seroquel] AdvReac Intermediate Night Verified 09/27/24 14:48 terrors Home Medications Medication Instructions Recorded Confirmed Type acetaminophen 500 mg tablet 1,000 mg PO Q8 PRN Pain 05/16/18 10/25/24 History (Tylenol Extra Strength) cyclosporine 0.05 % eye drops in a 1 drp OPB BID 05/16/18 10/25/24 History dropperette (Restasis) donepezil 5 mg tablet 5 mg PO HS 05/16/18 10/25/24 History polyethylene glycol 3350 17 gram 17 g PO DAILY PRN Constipation 05/16/18 10/25/24 History oral powder packet (Miralax) artificial tears(hypromellose) 0.3 1 drp OPB HS 12/12/18 10/25/24 History % eye gel (Systane Gel) ferrous sulfate 325 mg (65 mg 1 tab PO 3XWK 01/20/19 10/25/24 History iron) tablet (Iron (ferrous sulfate)) melatonin 10 mg capsule 10 mg PO HS 04/22/20 10/25/24 History lorazepam 0.5 mg tablet 0.5 mg PO QDL 07/06/20 10/25/24 History peg 400-propylene glycol 0.4 %-0.3 1 drp ophthalmic (eye) TID 07/06/20 10/25/24 History % eye drops (Systane Ultra) mirtazapine 45 mg tablet 45 mg PO HS 09/20/20 10/25/24 History lorazepam 1 mg tablet 1 mg PO HS 03/11/21 10/25/24 History sertraline 100 mg tablet 100 mg PO QAM 03/11/21 10/25/24 History duloxetine 60 mg capsule,delayed 60 mg PO BID #60 caps 05/06/21 10/25/24 Rx release blood sugar diagnostic #180 ea 05/28/21 10/25/24 Rx vitamin B complex 1 tab PO DAILY #90 tabs 01/04/22 10/25/24 Rx blood-glucose meter (OneTouch #1 ea 06/16/22 10/25/24 Rx Ultra2 Meter) cetirizine 10 mg tablet (Allergy 10 mg PO BID 06/01/23 10/25/24 History Relief (cetirizine)) pen needle, diabetic, safety 30 #300 ea 09/14/23 10/25/24 Rx gauge x 1/3" (Novofine Autocover) amitriptyline 100 mg tablet 100 mg PO QPM 11/08/23 10/25/24 History calcium 600 mg (as 1 tab PO BID 11/08/23 10/25/24 History carbonate)-vitamin D3 10 mcg (400 unit) tablet (Calcium 600 + D(3)) carbamide peroxide 6.5 % ear drops 10 drp otic (ear) HS PRN affected 11/08/23 10/25/24 History (Debrox) ear/wax buildup glucosamine sulfate 500 mg tablet 1,500 mg PO DAILY 11/08/23 10/25/24 History (Glucosamine) hydroxyzine HCl 25 mg tablet 25 mg PO BID 11/08/23 10/25/24 History magnesium hydroxide 400 mg/5 mL 2,400 - 4,800 mg PO DAILY PRN 11/08/23 10/25/24 History oral suspension (Milk of Magnesia) Constipation multivitamin (Daily-Hipolito tablet) 1 tab PO QAM 11/08/23 10/25/24 History ipratropium bromide 17 2 puff inhalation QID PRN 11/22/23 10/25/24 Rx mcg/actuation HFA aerosol inhaler Shortness Of Breath Or Wheezing (Atrovent HFA) #12.9 grams lancets 30 gauge #300 ea 01/04/24 10/25/24 Rx montelukast 10 mg tablet 10 mg PO HS #90 tabs 03/21/24 10/25/24 Rx methenamine hippurate 1 gram tablet 1 g PO QPM #90 tabs 04/02/24 10/25/24 Rx atenolol 50 mg tablet 50 mg PO DAILY #90 tabs 04/19/24 10/25/24 Rx spironolactone 25 mg tablet 25 mg PO DAILY #90 tabs 05/14/24 10/25/24 Rx diphenhydramine HCl 50 mg capsule 50 mg PO TID 06/05/24 10/25/24 History (Banophen) bumetanide 2 mg tablet See Rx Instructions .Route 06/19/24 10/25/24 Rx .COMPLEX #56 tabs nystatin 100,000 unit/gram topical 1 applic topical BID #180 grams 06/29/24 10/25/24 Rx powder ketoconazole 2 % shampoo 1 ea topical 2XWK #120 mL 07/16/24 10/25/24 Rx levothyroxine 100 mcg tablet 200 mcg (2 x 100 mcg) PO DAILY 07/16/24 10/25/24 Rx #180 tabs pen needle,diabetic dual safty 30 #100 ea 07/16/24 10/25/24 Rx gauge x 3/16" (Unifine SafeControl) nystatin 100,000 unit/gram topical 1 applic topical BID #30 grams 07/18/24 10/25/24 Rx cream famotidine 20 mg tablet 20 mg PO BID #180 tabs 07/31/24 10/25/24 Rx tramadol 50 mg tablet 50 mg PO Q12H PRN Pain #60 tabs 08/06/24 10/25/24 Rx conjugated estrogens 0.625 mg/gram 1,000 mg topical 3XWK #30 grams 08/17/24 10/25/24 Rx vaginal cream ipratropium bromide [Atrovent HFA] inhalation 08/17/24 10/25/24 History insulin NPH-regular 70-30 U-100 See Rx Instructions .Route 08/29/24 10/25/24 Rx insulin 100 unit/mL subcutaneous .COMPLEX #15 mL pen (Novolin 70-30 FlexPen U-100 Insulin) mirabegron 50 mg tablet,extended 50 mg PO DAILY #90 tabs 09/25/24 10/25/24 Rx release 24 hr (Myrbetriq) pantoprazole 40 mg tablet,delayed 40 mg PO QAM #90 tabs 09/25/24 10/25/24 Rx release Breo Ellipta 100 mcg-25 mcg/dose 1 inh inhalation DAILY 30 days #60 10/25/24 10/25/24 Rx powder for inhalation (fluticasone ea furoate-vilanterol) diclofenac sodium 1 % topical gel 2 g topical QID PRN 10/25/24 10/25/24 History dimethicone 1.5 % topical cream applic topical PRN 10/25/24 10/25/24 History (Remedy Skin Repair) guaifenesin 600 mg tablet, 600 mg PO Q12H PRN 10/25/24 10/25/24 History extended release 12 hr (Mucinex) albuterol sulfate 90 mcg/actuation 2 puff inhalation Q4 PRN Shortness 11/07/24 Rx aerosol inhaler Of Breath #18 grams gabapentin 300 mg capsule 300 mg PO TID #90 caps 11/21/24 Rx nystatin-triamcinolone 100,000 1 applic topical BID PRN itching 11/28/24 Rx unit/gram-0.1 % topical ointment #60 grams apixaban 5 mg tablet (Eliquis) 5 mg PO BID #180 tabs 12/20/24 Rx blood sugar diagnostic (OneTouch #300 ea 12/24/24 Rx Ultra Test strips) cholecalciferol (vitamin D3) 50 50 mcg PO DAILY #5 mL 12/24/24 Rx mcg/drop (2,000 unit/drop) oral drops potassium chloride 40 mEq/15 mL 20 meq (7.5 mL) PO BID #473 mL 12/27/24 Rx oral liquid Past Med/Surg History Problem List (Updated 12/31/24 @ 14:08 by Floyd Vences MD) Morbid obesity Chronic diastolic CHF (congestive heart failure) Type 2 diabetes mellitus Chronic indwelling Bernal catheter Type 2 diabetes mellitus Chest pain Vitamin D deficiency Bleeding Mitral regurgitation Cor pulmonale Incomplete bladder emptying Chronic right-sided congestive heart failure Pulmonary nodules Hypomagnesemia Polypharmacy Generalized muscle weakness Dyspnea on exertion Venous stasis Cardiac valve prolapse (Chronic) Diabetic peripheral neuropathy associated with type 2 diabetes mellitus Chronic interstitial cystitis CAD (coronary artery disease) YARI (obstructive sleep apnea) (Chronic) Osteoporosis Declined further testing GERD (gastroesophageal reflux disease) Dementia Hypertension (Chronic) COPD (chronic obstructive pulmonary disease) Atrial flutter, paroxysmal (Acute) Chronic hyponatremia (Chronic) Morbid obesity with BMI of 45.0-49.9, adult Chronic daily headache BMI 45.0-49.9, adult Bowel incontinence Bulging lumbar disc Chronic constipation Chronic vulvitis Cystocele, midline Gait disturbance Gastroparesis Hematuria, microscopic Hyperlipidemia Hypothyroidism Lymphedema Rectocele Type 2 diabetes mellitus with other circulatory complications Urge and stress incontinence Allergic rhinitis Arthritis Asthma Depression with anxiety Dry eye syndrome of both lacrimal glands Foot deformity, bilateral Insomnia Irritable bowel syndrome Migraine headache Pessary maintenance Post-menopausal atrophic vaginitis Squamous cell carcinoma of skin Venous insufficiency Wears dentures Recurrent UTI (Acute) Esophageal reflux (Acute) Health care maintenance Obesity hypoventilation syndrome Hypokalemia Anticoagulant long-term use Abnormal PFT Medical History (Updated 12/31/24 @ 14:08 by Floyd Vences MD) Complication, blocked Bernal catheter Cough Urinary tract infection History of pulmonary embolism Anemia Hyponatremia Chronic diastolic congestive heart failure Venous stasis ulcer limited to breakdown of skin without varicose veins Acute renal disease Right-sided congestive heart failure Hypercapnic respiratory failure Abnormal PFT Dyspnea Cellulitis Acute hyperglycemia Pneumonia Skin ulcer Rotator cuff tendonitis History of rotator cuff tear History of intestinal obstruction Memory loss Edema Diabetes with neurologic complications Cellulitis of lower leg Atherosclerotic heart disease of [place] coronary artery without angina pectoris Knee pain, bilateral Incontinence Pseudomonas aeruginosa infection Diastolic CHF, acute on chronic Acute metabolic encephalopathy Anemia, iron deficiency UTI (urinary tract infection) Confusion Sepsis Loss of sensation Foot pain Foot deformity Basal pneumonia of both lungs Balance disorder UTI (urinary tract infection) TIA (transient ischemic attack) Diabetes Surgical History History of surgery lysis of intestinal adhesions History of mandibular surgery repair of mandible with endosteal implant History of total hysterectomy H/O oral surgery History of knee replacement Cataract Family History Father Diabetes Prostate cancer Colon cancer Colorectal cancer Mother Diabetes Heart disease Brother Acute myocardial infarction Family/Other Cancer Colorectal cancer Hypertension Other Emphysema lung Denies family history of Ovarian cancer Crohn's disease Breast cancer Lung disease Social History Smoking Status: Former smoker Tobacco Type: Cigarettes Age Started Using Tobacco: 17; Age Quit Using Tobacco: 30; packs per day: 1; Second Hand Exposure: No; Do You Dip or Chew Tobacco: No; Hx Alcohol Use: No Hx Substance Use: No Preferred Language: Bengali Communication Ability: Effective Visual Impairment: No Limitations Hearing Ability: Normal Senior Qa Analyst Required: No Beliefs That Will Affect Care: None marital status: / Current Living Situation: [facility] Current Living Situation Comment: [facility] current occupational status: retired How many Children do You have: 2 Feels Safe at Home: Yes Childhood Exposure to Second-Hand Smoke: No Diet: regular Dental Care, Regularly: Yes Physical Activity Frequency: Does not Exercise Seatbelt Use: always Sunscreen Use: Yes Assistive Devices: Walker Review of Systems 2 Review of Systems: Constitutionalno fever or chills ENTno blurred vision, no double vision, no epistaxis, no sore throat Respiratoryno cough, no wheezing, no shortness of breath Cardiacno palpitations, no syncope. Intermittent chest discomfort as described in H&P [place]iy[place] nausea, vomiting, diarrhea, melena, hematochezia GUno urinary retention, no urinary incontinence, no dysuria, no hematuria Musculoskeletalno joint pain, no muscle tenderness Skinno bruising, no rashes, no pruritus Neurono isolated weakness, no paresthesia, no weakness Psychno depression, no anxiety Physical Exam 2 Physical Exam: General-alert and oriented x3, no fever, no chills. Obese HEENT-head atraumatic and normocephalic, pupils equal and reactive to light, extraocular muscles intact Neck-no lymphadenopathy or thyromegaly, trachea midline Chest-clear to auscultation. No rales, wheezing or rhonchi Cardiac-regular rate and rhythm, normal S1 and S2 Abdomen-normal bowel sounds, no hepatosplenomegaly GUFoley catheter is chronic and no evidence of gross hematuria Extremities-1+ pitting edema bilateral lower lower extremities below the knees is unchanged. Distal lower extremity redness is chronic Neuro-cranial nerves II through XII intact, motor and sensory function within normal limits, strength symmetrical, no focal deficits Psych-normal affect, normal mood Results & Data Results & Data Vital Signs (Past 12 Hours) Vital Signs Temp Pulse Resp BP Pulse Ox O2 Del Method 12/31/24 12:20 67 12/31/24 11:15 Room Air 12/31/24 11:15 18 12/31/24 11:15 Room Air 12/31/24 11:15 36.6 C 84 18 125/79 92 Room Air Laboratory Results 12/31/24 11:40 12/31/24 11:40 Code Status & VTE Plan Code Status DNR PG Care Time/CCT Total # of Minutes Spent Total Time Spent with Patient: Total time spent is greater than 50% in coordination of care (as documented) at patient's floor/unit and/or counseling patient: Coding Level of Care Code 94871 INT INP/OBS CARE 3/75MIN Diagnoses Chest pain R07.9 Type 2 diabetes mellitus E11.9 Chronic indwelling Bernal catheter Z97.8 Chronic diastolic CHF (congestive heart failure) I50.32 Morbid obesity E66.01
--- NOTE | 2024-12-31 14:27 | Electrocardiogram Report ---
Test Reason : Blood Pressure : */* mmHG Vent. Rate : 81 BPM Atrial Rate : 81 BPM P-R Int : 212 ms QRS Dur : 88 ms QT Int : 366 ms P-R-T Axes : 85 83 73 degrees QTcB Int : 425 ms Sinus rhythm with 1st degree A-V block with Premature atrial complexes Otherwise normal ECG When compared with ECG of 18-Jun-2024 09:45, Premature atrial complexes are now Present Confirmed by Aston Shaikh ([id number]) on 12/31/2024 2:26:58 PM Referred By: REFERRED SELF Confirmed By: Aston Shaikh
[2024-12-31] MEDS ORDERED: ALBUTEROL HFA 8 GM INHALER INH PRN (16:16)
[2024-12-31] MEDS ORDERED: GLUCAGON FOR INJ 1 MG VIAL SQ PRN (16:16)
[2024-12-31] MEDS ORDERED: GLUCOSE 40% GEL 15 GM TUBE PO PRN (16:16)
[2024-12-31] MEDS ORDERED: NITROGLYCERIN SL 0.4 MG/TAB TAB SL PRN (16:16)
[2024-12-31] MEDS ORDERED: ONDANSETRON INJ 2 MG/ML 2 ML VIAL IV PRN (16:16)
[2024-12-31] MEDS ORDERED: DEXTROSE 50% 50 ML SYRINGE IV PRN (16:16)
[2024-12-31] MEDS ORDERED: GLUCOSE 10 TAB/TUBE PO PRN (16:16)
[2024-12-31] MEDS ORDERED: IPRATROPIUM BROMIDE HFA INHALER INH PRN (16:16)
[2024-12-31] MEDS: CARBOHYDRATES FOR HYPOGLYCEMIA PO PRN (16:59)
[2024-12-31] MEDS: INSULIN ASPART PER UNIT CHARGE SC SCH (17:56)
[2024-12-31] MEDS: MELATONIN 3 MG TAB PO SCH (20:43)
[2024-12-31] MEDS: APIXABAN 5 MG TABLET PO SCH (20:43)
[2024-12-31] MEDS: FAMOTIDINE 20 MG TAB PO SCH (20:43)
[2024-12-31] MEDS: POTASSIUM CHLORIDE CRTAB 20 MEQ TABCR PO SCH (20:43)
[2024-12-31] MEDS: LORazepam 1 MG TAB PO SCH (20:43)
[2024-12-31] MEDS: DULoxetine HCL 60 MG CAP PO SCH (20:44)
[2024-12-31] MEDS: DONEPEZIL HCL 5 MG TAB PO SCH (20:44)
[2024-12-31] MEDS: GABAPENTIN 300 MG CAP PO SCH (20:44)
[2024-12-31] MEDS: MONTELUKAST SODIUM 10 MG TABLET PO SCH (20:45)
[2024-12-31] MEDS: MIRTAZAPINE SOLTAB 15 MG PO SCH (20:45)
[2024-12-31] MEDS: METHENAMINE HIPPURATE 1 GM TAB PO SCH (20:46)
[2024-12-31] MEDS: AMITRIPTYLINE HCL 100 MG TAB PO SCH (20:46)
[2024-12-31] MEDS: ARTIFICIAL TEARS OP OINT 3.5 GM TUBE OPB SCH (20:48)
[2024-12-31] MEDS ORDERED: NON-FORMULARY MEDICATION (Cyclosporine [Restasis] 0.05 % Dropperette) OPB SCH (21:00)
[2025-01-01] MEDS: traMADol HCL 50 MG TABLET PO PRN (00:54)
[2025-01-01] MEDS: ACETAMINOPHEN 325 MG TAB PO PRN (00:57)
[2025-01-01] MEDS: LEVOTHYROXINE SODIUM 200 MCG TABLET PO SCH (05:30)
--- NOTE | 2025-01-01 09:45 | XCELERA ---
[id number] \\[id number]
--- NOTE | 2025-01-01 10:25 | Electrocardiogram Report ---
Test Reason : Blood Pressure : */* mmHG Vent. Rate : 79 BPM Atrial Rate : 79 BPM P-R Int : 228 ms QRS Dur : 88 ms QT Int : 390 ms P-R-T Axes : 61 66 58 degrees QTcB Int : 447 ms Sinus rhythm with 1st degree A-V block with Premature atrial complexes Low voltage QRS Borderline ECG When compared with ECG of 31-Dec-2024 11:02, No significant change was found Confirmed by Aston Shaikh ([id number]) on 01/01/2025 10:24:50 AM Referred By: REFERRED SELF Confirmed By: Aston Shaikh
[2025-01-01] MEDS: FLUTICASONE/VILANTEROL 100/25MCG 14 PUFFS/INHALER INH SCH (11:41)
[2025-01-01] MEDS: ATENOLOL 50 MG TABLET PO SCH (11:42)
[2025-01-01] MEDS: BUMETANIDE 1 MG TAB PO SCH (11:42)
[2025-01-01] MEDS: CHOLECALCIFEROL 25 MCG (1000 UNITS) TAB PO SCH (11:42)
[2025-01-01] MEDS: CALCIUM 600MG + VIT D 400 IU TAB PO SCH (11:43)
[2025-01-01] MEDS: MULTIVITAMIN TAB PO SCH (11:44)
[2025-01-01] MEDS: PANTOprazole 40 MG TAB PO SCH (11:44)
[2025-01-01] MEDS: SERTRALINE HCL 100 MG TABLET PO SCH (11:44)
[2025-01-01] MEDS: VITAMIN B COMPLEX TAB PO SCH (11:45)
[2025-01-01] MEDS: SPIRONOLACTONE 25 MG TAB PO SCH (11:45)
[2025-01-01] MEDS: VIBEGRON 75 MG TAB PO SCH (11:47)
[2025-01-01] MEDS: ATROPINE SULFATE 0.1 MG/ML 10ML SYR IV ONE (14:23)
[2025-01-01] MEDS: METOPROLOL TARTRATE 1 MG/ML VIAL IV ONE (14:23)
[2025-01-01] MEDS: DOBUTamine HCL 12.5 MG/ML 20 ML VIAL IV ONE (14:23)
--- NOTE | 2025-01-01 14:44 | XCELERA ---
[id number] \\[id number]
--- NOTE | 2025-01-01 16:41 | Hospitalist Progress Note ---
Date of Service January 01, 2025 Assessment & Plan (1) Chest pain: Plan: Currently symptom-free. No acute EKG changes. Initial troponin normal. Telemetry. Cardiac echo to evaluate for regional wall motion abnormalities stress echo negative (2) Type 2 diabetes mellitus: Plan: ADA diet. Sliding scale coverage for now (3) Chronic indwelling Chambers catheter: Plan: No evidence of gross hematuria. No sign of acute infection (4) Chronic diastolic CHF (congestive heart failure): Plan: No overt CHF upon admission. Monitor intake and output able to lie flat without shortness of breath (5) Morbid obesity: Plan: BMI greater than 40. Plan chest pain episode hypoxic episode with ambulation morbid obesity dementia chronically chambers catheter overall plan her stress echo is negative she desaturate on ambulate into 85% plan for keep her overnight and arrange for home oxygen in addition, need PT and OT clearance at baseline, she used a walker and can ambulate 20-50 feet Admission and Anticipated Discharge Date Admission Date: December 31, 2024 Subjective She have history of diabetes and was having chest discomfort Her stress echo is negative When she have a two-step test she became fairly winded and desatted into the 85% Will keep her overnight and have oxygen arranged She need PT clearance at baseline she does use a walker and able to ambulate 20 to 40 feet When her daughter bring her appointments she is on a wheelchair Review of Systems Review of Systems: Constitutionalno fever or chills ENTno blurred vision, no double vision, no epistaxis, no sore throat Respiratoryno cough, no wheezing, no shortness of breath Cardiacno palpitations, no syncope. intermittent chest pain [place] nausea, vomiting, diarrhea, melena, hematochezia GUno urinary retention, no urinary incontinence, no dysuria, no hematuria Musculoskeletalno joint pain, no muscle tenderness Skinno bruising, no rashes, no pruritus Neurono isolated weakness, no paresthesia, no weakness Psychno depression, no anxiety Physical Exam Physical Exam: VITALS: Reviewed. WEIGHT/BMI reviewed. GEN: overweight, chronically ill apparin g -Head: NC/AT; -Mouth and throat: MMM. Normal gums, muc aidee, palate,. Good dentition. NECK: Supple, with no masses. CV: RRR, no m/r/g. LUNGS: CTAB, no w/r/c. ABD: Soft, NT/ND, NBS, no masses or organomegaly. SKIN: Warm, well perfused. No skin rashes or abnormal lesions. MSK: No deformities, Normal gait. EXT: No clubbing, cyanosis, or edema. Results & Data Results & Data Vital Signs (Past 12 Hours) Vital Signs Temp Pulse Pulse Pulse Pulse Resp Resp 01/01/25 16:29 36.5 C 76 18 01/01/25 16:15 91 H 89 30 H 01/01/25 11:59 36.4 C L 84 16 01/01/25 08:02 01/01/25 08:00 36.7 C 90 16 01/01/25 07:07 85 Resp BP Pulse Ox Pulse Ox Pulse Ox O2 Del Method 01/01/25 16:29 100/56 L 90 Room Air 01/01/25 16:15 18 85 L 96 01/01/25 11:59 122/42 L 93 Room Air 01/01/25 08:02 Room Air 01/01/25 08:00 138/82 90 Room Air 01/01/25 07:07 Laboratory Results Laboratory Results - last 72 hr 12/31/24 12/31/24 12/31/24 11:40 16:31 16:57 WBC 11.27 H RBC 4.42 Hgb 12.9 Hct 38.8 MCV 87.8 MCH 29.2 MCHC 33.2 RDW Std Deviation 44.9 RDW Coeff of [place] 14.1 Plt Count 292 MPV 10.1 Immature Gran % (Auto) 0.5 Neut % (Auto) 70.0 Lymph % (Auto) 16.0 [place] % (Auto) 8.2 Eos % (Auto) 4.9 Baso % (Auto) 0.4 Neut # (Auto) 7.89 H Lymph # (Auto) 1.80 [place]verse # (Auto) 0.92 H Eos # (Auto) 0.55 H Baso # (Auto) 0.05 Immature Gran # (Auto) 0.06 PT 10.9 INR 1.0 APTT 31 PTT Ratio 1.2 Sodium 132 L Potassium 4.6 Chloride 92 L Carbon Dioxide 34 H Anion Gap 6 BUN 15 Creatinine 1.09 Est Cr Clr Drug Dosing Not Reportable eGFR 50.09 BUN/Creatinine Ratio 13.8 Glucose 120 H POC Glucose 61 L* Calcium 9.1 Total Bilirubin 0.3 AST 23 ALT 14 Alkaline Phosphatase 68 Troponin I High Sens 5.3 2.9 Total Protein 7.4 Albumin 3.9 Globulin 3.5 Albumin/Globulin Ratio 1.1 Lipase 19 Nasal Screen MRSA (PCR) 12/31/24 12/31/24 12/31/24 16:58 17:16 17:20 WBC RBC Hgb Hct MCV MCH MCHC RDW Std Deviation RDW Coeff of [place] Plt Count MPV Immature Gran % (Auto) Neut % (Auto) Lymph % (Auto) [place] % (Auto) Eos % (Auto) Baso % (Auto) Neut # (Auto) Lymph # (Auto) [place] # (Auto) Eos # (Auto) Baso # (Auto) Immature Gran # (Auto) PT INR APTT PTT Ratio Sodium Potassium Chloride Carbon Dioxide Anion Gap BUN Creatinine Est Cr Clr Drug Dosing eGFR BUN/Creatinine Ratio Glucose POC Glucose 63 L* 51 L* 66 L* Calcium Total Bilirubin AST ALT Alkaline Phosphatase Troponin I High Sens Total Protein Albumin Globulin Albumin/Globulin Ratio Lipase Nasal Screen MRSA (PCR) 12/31/24 12/31/24 12/31/24 17:45 20:14 22:53 WBC RBC Hgb Hct MCV MCH MCHC RDW Std Deviation RDW Coeff of [place] Plt Count MPV Immature Gran % (Auto) Neut % (Auto) Lymph % (Auto) [place] % (Auto) Eos % (Auto) Baso % (Auto) Neut # (Auto) Lymph # (Auto) [place] # (Auto) Eos # (Auto) Baso # (Auto) Immature Gran # (Auto) PT INR APTT PTT Ratio Sodium Potassium Chloride Carbon Dioxide Anion Gap BUN Creatinine Est Cr Clr Drug Dosing eGFR BUN/Creatinine Ratio Glucose POC Glucose 76 142 H Calcium Total Bilirubin AST ALT Alkaline Phosphatase Troponin I High Sens 5.1 Total Protein Albumin Globulin Albumin/Globulin Ratio Lipase Nasal Screen MRSA (PCR) 12/31/24 01/01/25 01/01/25 Unknown 08:28 12:07 WBC RBC Hgb Hct MCV MCH MCHC RDW Std Deviation RDW Coeff of [place] Plt Count MPV Immature Gran % (Auto) Neut % (Auto) Lymph % (Auto) [place] % (Auto) Eos % (Auto) Baso % (Auto) Neut # (Auto) Lymph # (Auto) [place] # (Auto) Eos # (Auto) Baso # (Auto) Immature Gran # (Auto) PT INR APTT PTT Ratio Sodium Potassium Chloride Carbon Dioxide Anion Gap BUN Creatinine Est Cr Clr Drug Dosing eGFR BUN/Creatinine Ratio Glucose POC Glucose 140 H 142 H Calcium Total Bilirubin AST ALT Alkaline Phosphatase Troponin I High Sens Total Protein Albumin Globulin Albumin/Globulin Ratio Lipase Nasal Screen MRSA (PCR) Negative 01/01/25 Unknown WBC RBC Hgb Hct MCV MCH MCHC RDW Std Deviation RDW Coeff of [place] Plt Count MPV Immature Gran % (Auto) Neut % (Auto) Lymph % (Auto) [place] % (Auto) Eos % (Auto) Baso % (Auto) Neut # (Auto) Lymph # (Auto) [place] # (Auto) Eos # (Auto) Baso # (Auto) Immature Gran # (Auto) PT INR APTT PTT Ratio Sodium Potassium Chloride Carbon Dioxide Anion Gap BUN Creatinine Est Cr Clr Drug Dosing eGFR BUN/Creatinine Ratio Glucose POC Glucose Calcium Total Bilirubin AST ALT Alkaline Phosphatase Troponin I High Sens Total Protein Albumin Globulin Albumin/Globulin Ratio Lipase Nasal Screen MRSA (PCR) Negative Medications Administered Current Inpatient Medications Acetaminophen (Acetaminophen 325 Mg Tab) 650 mg PO Q6H PRN PRN Reason: Headache Stop: 01/30/25 16:15 Last Admin: 01/01/25 00:57 Dose: 650 mg Albuterol (Albuterol Hfa 8 Gm Inhaler) 2 puffs INH Q4 PRN PRN Reason: Shortness Of Breath Stop: 01/30/25 16:15 Amitriptyline HCl (Amitriptyline Hcl 100 Mg Tab) 100 mg PO QPM [facility] Stop: 01/30/25 20:59 Last Admin: 12/31/24 20:46 Dose: 100 mg Apixaban (Apixaban 5 Mg Tablet) 5 mg PO BID [facility] Stop: 01/30/25 20:59 Last Admin: 01/01/25 11:45 Dose: 5 mg Atenolol (Atenolol 50 Mg Tablet) 50 mg PO DAILY [facility] Stop: 01/31/25 08:59 Last Admin: 01/01/25 11:42 Dose: 50 mg Bumetanide (Bumetanide 1 Mg Tab) 4 mg PO QAM [facility] Stop: 01/31/25 08:59 Last Admin: 01/01/25 11:42 Dose: 4 mg Calcium/Vitamin D (Calcium 600mg + Vit D 400 Iu Tab) 1 tab PO DAILY [facility] Stop: 01/31/25 08:59 Last Admin: 01/01/25 11:43 Dose: 1 tab Dextrose (Dextrose 50% 50 Ml Syringe) 25 - 50 ml IV UD PRN; Protocol PRN Reason: Hypoglycemia Protocol Stop: 01/30/25 16:15 Donepezil HCl (Donepezil Hcl 5 Mg Tab) 5 mg PO HS [facility] Stop: 01/30/25 20:59 Last Admin: 12/31/24 20:44 Dose: 5 mg Duloxetine HCl (Duloxetine Hcl 60 Mg Cap) 60 mg PO BID [facility] Stop: 01/30/25 20:59 Last Admin: 01/01/25 11:43 Dose: 60 mg Famotidine (Famotidine 20 Mg Tab) 20 mg PO BID [facility] Stop: 01/30/25 20:59 Last Admin: 01/01/25 11:47 Dose: 20 mg Fluticasone/Vilanterol (Fluticasone/Vilanterol 100/25mcg 14 Puffs/Inhaler) 1 puffs INH DAILY [facility] Stop: 01/31/25 08:59 Last Admin: 01/01/25 11:41 Dose: 1 puffs Gabapentin (Gabapentin 300 Mg Cap) 300 mg PO TID [facility] Stop: 01/30/25 20:59 Last Admin: 01/01/25 15:23 Dose: 300 mg Glucagon (Glucagon For Inj 1 Mg Vial) 1 mg SQ UD PRN; Protocol PRN Reason: Hypoglycemia Protocol Stop: 01/30/25 16:15 Glucose (Glucose 40% Gel 15 Gm Tube) 15 - 30 gm PO UD PRN; Protocol PRN Reason: Hypoglycemia Protocol Stop: 01/30/25 16:15 Glucose (Glucose 10 Tab/Tube) 4 - 8 tab PO UD PRN; Protocol PRN Reason: Hypoglycemia Protocol Stop: 01/30/25 16:15 Insulin Aspart (Insulin Aspart Per Unit Charge) 0 units SC ACHS [facility] Stop: 01/30/25 16:29 Last Admin: 01/01/25 12:33 Dose: Not Given Ipratropium [place] (Ipratropium [place] Hfa Inhaler) 2 puffs INH QID PRN PRN Reason: Shortness Of Breath Or Wheezing Stop: 01/30/25 16:15 Levothyroxine Sodium (Levothyroxine Sodium 200 Mcg Tablet) 200 mcg PO DAILYBB [facility] Stop: 01/31/25 06:29 Last Admin: 01/01/25 05:30 Dose: 200 mcg Lorazepam (Lorazepam 1 Mg Tab) 1 mg PO HS [facility] Stop: 01/30/25 20:59 Last Admin: 12/31/24 20:43 Dose: 1 mg Melatonin (Melatonin 3 Mg Tab) 3 mg PO HS [facility] Stop: 01/30/25 20:59 Last Admin: 12/31/24 20:43 Dose: 3 mg Methenamine Hippurate (Methenamine Hippurate 1 Gm Tab) 1 gm PO QPM [facility] Stop: 01/02/25 20:59 Last Admin: 12/31/24 20:46 Dose: 1 gm Mirtazapine (Mirtazapine Soltab 15 Mg) [address] [facility] Stop: 01/30/25 20:59 Last Admin: 12/31/24 20:45 Dose: 45 mg Miscellaneous (Carbohydrates For Hypoglycemia ) 15 - 30 gm PO UD PRN PRN Reason: Hypoglycemia Protocol Stop: 01/30/25 16:15 Last Admin: 12/31/24 17:33 Dose: 15 gm Montelukast Sodium (Montelukast Sodium 10 Mg Tablet) [address] [facility] Stop: 01/30/25 20:59 Last Admin: 12/31/24 20:45 Dose: 10 mg Multi-Ingredient Cream (Artificial Tears Op Oint 3.5 Gm Tube) [address] [facility] Stop: 01/30/25 20:59 Last Admin: 12/31/24 20:48 Dose: 1 appln Multivitamins (Multivitamin Tab) 1 tab PO QAM [facility] Stop: 01/31/25 08:59 Last Admin: 01/01/25 11:44 Dose: 1 tab Nitroglycerin (Nitroglycerin Sl 0.4 Mg/Tab Tab) 0.4 mg SL Q5M PRN PRN Reason: Chest Pain Stop: 01/30/25 16:15 Ondansetron HCl (Ondansetron Inj 2 Mg/Ml 2 Ml Vial) 4 mg IV Q4H PRN PRN Reason: Nausea Stop: 01/30/25 16:15 Pantoprazole Sodium (Pantoprazole 40 Mg Tab) 40 mg PO QAM [facility] Stop: 01/31/25 08:59 Last Admin: 01/01/25 11:44 Dose: 40 mg Potassium Chloride (Potassium Chloride Crtab 20 Meq Tabcr) 20 meq PO BID [facility] Stop: 01/30/25 20:59 Last Admin: 01/01/25 11:47 Dose: 20 meq Sertraline HCl (Sertraline Hcl 100 Mg Tablet) 100 mg PO QAM [facility] Stop: 01/31/25 08:59 Last Admin: 01/01/25 11:44 Dose: 100 mg Spironolactone (Spironolactone 25 Mg Tab) 25 mg PO DAILY [facility] Stop: 01/31/25 08:59 Last Admin: 01/01/25 11:45 Dose: 25 mg Tramadol HCl (Tramadol Hcl 50 Mg Tablet) 50 mg PO Q12H PRN PRN Reason: Pain Stop: 01/30/25 16:15 Last Admin: 01/01/25 00:54 Dose: 50 mg Vibegron (Vibegron 75 Mg Tab) 75 mg PO DAILY [facility] Stop: 01/31/25 08:59 Last Admin: 01/01/25 11:47 Dose: 75 mg Vitamin B Complex (Vitamin B Complex Tab) 1 tab PO DAILY [facility] Stop: 01/31/25 08:59 Last Admin: 01/01/25 11:45 Dose: 1 tab Vitamin D (Cholecalciferol 25 Mcg (1000 Units) Tab) 50 mcg PO DAILY [facility] Stop: 01/31/25 08:59 Last Admin: 01/01/25 11:42 Dose: 50 mcg PG Care Time/CCT Total # of Minutes Spent Total Time Spent with Patient: Total time spent is greater than 45 50% in coordination of care (as documented) at patient's floor/unit and/or counseling patient: Coding Level of Care Code 71346 SUB INP/OBS CARE 3/50MIN Diagnoses Chest pain R07.9 Type 2 diabetes mellitus E11.9 Chronic indwelling Chambers catheter Z97.8 Chronic diastolic CHF (congestive heart failure) I50.32 Morbid obesity E66.01 Time Spent (min) 45
[2025-01-02 07:28] VITALS: BP 130/68; TEMP 98.1
[2025-01-02 08:01] LABS: Hematocrit (blood only) 38.5 % (37.0-47.0); Hemoglobin 12.9 g/dl (12.0-16.0); Mean Corpuscular Hemoglobin 28.9 pg (25.0-34.0); Mean Corpuscular Hgb Conc 33.5 g/dL (32.0-36.0); Mean Corpuscular Volume 86.3 fL (80.0-100.0); Mean Platelet Volume 9.8 fL (9.4-12.4); Platelet Count 280 K/uL (130-400); RDW Coefficient of Variation 13.9 % (11.5-14.5); RDW Standard Deviation 43.6 fL (36.4-46.3); Red Blood Count 4.46 M/uL (4.20-5.40); White Blood Count 9.77 K/ul (4.8-10.8)
[2025-01-02 08:28] LABS: BUN Creatinine Ratio 15.7 (10-20); Calcium 8.9 mg/dl (8.6-10.3); Creatinine Clr Calc Pharmacy 41.9 ml/min; Potassium 4.4 mmol/L (3.5-5.1)
--- NOTE | 2025-01-02 10:50 | XRay Report ---
XR chest 2V PA/lateral CLINICAL HISTORY: hypoxia COMPARISON STUDY: 12/31/2024 FINDINGS: Stable moderate cardiomegaly with increased mild pulmonary vascular congestion. Inspiration is shallow. No consolidation or pleural effusion seen. No pneumothorax. IMPRESSION: Mildly increased CHF. ACT 112: Negative or not required by law. Electronically signed by: Amaod Melendez M.D. 01/02/2025 10:49 AM
[2025-01-02 12:57] VITALS: PULSE 70; RESP 18; O2SAT 91
--- NOTE | 2025-01-02 19:16 | Discharge Summary ---
Discharge Summary Date of Service January 02, 2025 Principal Dx & Hospital Course #1 = Principal Diagnosis (1) Chest pain: (2) Type 2 diabetes mellitus: (3) Chronic indwelling Bernal catheter: (4) Chronic diastolic CHF (congestive heart failure): (5) Morbid obesity: BMI greater than 40. Plan 84-year-old white female with exertional chest discomfort which is nonradiating. She complains of a dull substernal chest discomfort while walking that resolves with rest. No radiation of the discomfort. No associated shortness of breath or diaphoresis. EKG on admission is negative for acute changes. First troponin is normal. She is now asymptomatic. She denies palpitations or syncope. She was admitted for observation for further assessment. #Chest pain Currently symptom-free. No acute EKG changes. Troponin normal. Echocardiogram with EF 55-60%, no regional wall motion abnormalities, no significant valvular pathology, no significant change compared to study from 03/12/2021 Dobutamine stress echo negative for myocardial ischemia, induced chest pain, induced EKG changes #Chronic diastolic CHF No overt CHF noted, but was hypoxic with ambulation during her stay CXR with mildly increased CHF Initial 2-step recommended supplemental O2 with ambulation, however repeat 2- step with no supplemental O2 needs Continue Bumex 4 mg daily #Type 2 diabetes mellitus ADA diet. Sliding scale coverage while inpatient #Chronic indwelling Bernal catheter No evidence of gross hematuria. No sign of acute infection #Morbid obesity BMI 50.8. Recommend weight loss, will defer to outpatient setting Dispo: PT/OT recommended return to [facility] with the accommodation of all owing her to rest breaks when ambulating to dining naidu. Discharge back to [facility] 01/02 Admission HPI Per Admitting Provider 84-year-old white female with exertional chest discomfort which is nonradiating. She complains of a dull substernal chest discomfort while walking that resolves with rest. No radiation of the discomfort. No associated shortness of breath or diaphoresis. EKG on admission is negative for acute changes. First troponin is normal. She is now asymptomatic. She denies palpitations or syncope. She is placed in observation for further assessment Discharge Exam General: No acute distress, nondiaphoretic, class III obesity. Cardiac: Regular rate and rhythm without murmurs gallops or rubs. Pulm: Clear to auscultation bilaterally without wheezes, rales or rhonchi. Normal respiratory effort. 91% on room air. Abdominal: Soft, nontender, nondistended. Bowel sounds present. Neuro: A&O x3. No focal neurological deficits. Discharge Plan Discharge Items Patient Disposition: Personal Intermediate Reason For Visit: CHEST PAIN Discharge Diagnosis: Chest pain, noncardiac, resolved Activity: Resume your previous activity Non-emergency contact: Primary Care Provider Call non-emergency contact if: you have any medication questions and your symptoms worsen Follow-up/Referrals: Jame Ruth MD [Primary Care Provider] - (Follow-up in 1-2 weeks) Addtl Attending Provider Instructions: Jacqui, You were admitted to the hospital due to chest pain. Your cardiac workup was negative, including EKGs, echocardiogram, stress tests, and labs. Fortunately, your chest pain resolved. You were evaluated by PT and OT who recommended you return to [facility], but take 2 rest breaks when walking to the dining naidu. The respiratory therapist evaluated you and you do not require supplemental oxygen at rest or with activity. Continue your medications as prescribed. There have not been any medication changes from this hospitalization. Please follow-up with your PCP in 1-2 weeks. It was a pleasure taking care of you while you were in the hospital! Pending Studies at Discharge: No Stand-Alone Forms: My [facility], Smoking Cessation Skilled Items Patient informed of condition?: Yes DNR: Yes Discharge Level of Care: Other Communicable Disease: No Discharge Prognosis: Stable Lines: None Urinary Catheter: Yes Medications and DC Order Prescriptions: Continued duloxetine 60 mg capsule,delayed release(DR/EC) 60 mg PO BID Qty: 60 0RF (DME) blood sugar diagnostic Strip See Rx Instructions .ROUTE .MEDSUPPLY Qty: 180 3RF Rx Instructions: Test blood sugar twice daily vitamin B complex Tablet 1 tab PO DAILY Qty: 90 3RF (DME) blood-glucose meter [OneTouch Ultra2 Meter] [facility] [place] See Rx Instructions .Route Qty: 1 0RF Rx Instructions: TEST BSG THREE TIMES DAILY; DX CODE- E11.59 (DME) Novofine Autocover 30 gauge x 1/3" needle See Rx Instructions .ROUTE .MEDSUPPLY Qty: 300 3RF Rx Instructions: Use to inject insulin 3 times daily dx E11.42 Atrovent HFA 17 mcg/actuation HFA aerosol inhaler 2 puff INHALATION QID PRN (Reason: Shortness Of Breath Or Wheezing) Qty: 12.9 3RF (DME) lancets 30 gauge misc See Rx Instructions .ROUTE .MEDSUPPLY Qty: 300 5RF Rx Instructions: TEST THREE TIMES A DAY montelukast 10 mg tablet 10 mg PO HS Qty: 90 3RF Rx Instructions: TAKE 1 TABLET BY MOUTH IN THE EVENING FOR ALLERGIES methenamine hippurate 1 gram tablet 1 g PO QPM Qty: 90 3RF atenolol 50 mg tablet 50 mg PO DAILY Qty: 90 3RF spironolactone 25 mg tablet 25 mg PO DAILY Qty: 90 3RF nystatin 100,000 unit/gram powder 1 applic TOPICAL BID Qty: 180 3RF ketoconazole 2 % shampoo 1 ea TOPICAL 2XWK Qty: 120 1RF Rx Instructions: USES ON TUESDAY AND TUESDAY (DME) Unifine SafeControl 30 gauge x 3/16" needle See Rx Instructions .Route Qty: 100 11RF Rx Instructions: As three times a day with lantus levothyroxine 100 mcg tablet 200 mcg PO DAILY Qty: 180 3RF famotidine 20 mg tablet 20 mg PO BID Qty: 180 3RF tramadol 50 mg tablet 50 mg PO Q12H PRN (Reason: Pain) Qty: 60 5RF Novolin 70-30 FlexPen U-100 100 unit/mL (70-30) insulin pen See Rx Instructions .ROUTE .COMPLEX Qty: 15 3RF Rx Instructions: 50 units at breakfast; 45 units at lunch and 15 units at dinner Myrbetriq 50 mg tablet extended release 24 hr 50 mg PO DAILY Qty: 90 3RF pantoprazole 40 mg tablet,delayed release (DR/EC) 40 mg PO QAM Qty: 90 3RF Rx Instructions: 30minutes prior to breakfast albuterol sulfate 90 mcg/actuation HFA aerosol inhaler 2 puff INHALATION Q4 PRN (Reason: Shortness Of Breath) Qty: 18 1RF gabapentin 300 mg capsule 300 mg PO TID Qty: 90 5RF nystatin-triamcinolone 100,000-0.1 unit/gram-% ointment 1 applic topical BID PRN (Reason: itching) Qty: 60 3RF Eliquis 5 mg tablet 5 mg PO BID Qty: 180 3RF Rx Instructions: TAKE 1 TABLET BY MOUTH TWICE DAILY (AFIB) (DME) OneTouch Ultra Test Strip See Rx Instructions .Route Qty: 300 3RF Rx Instructions: use to test three times daily cholecalciferol (vitamin D3) 50 mcg/drop (2, 000 unit/drop) drops 50 mcg PO DAILY Qty: 5 5RF potassium chloride 40 mEq/15 mL liquid 20 meq PO BID Qty: 473 3RF melatonin 10 mg capsule 10 mg PO HS diphenhydramine HCl [Banophen] 50 mg capsule 50 mg PO TID cetirizine [Allergy Relief (cetirizine)] 10 mg tablet 10 mg PO BID diclofenac sodium 1 % gel 2 g topical QID PRN (Reason: Pain) guaifenesin [Mucinex] 600 mg tablet extended release 12hr 600 mg PO Q12H PRN (Reason: Congestion) Breo Ellipta 100-25 mcg/dose blister with device 1 inh inhalation DAILY 30 Days Qty: 60 3RF conjugated estrogens 0.625 mg/gram cream 1,000 mg topical 3XWK Qty: 30 4RF Rx Instructions: pea sized amount every TUE, WED, & FRI donepezil 5 mg Tablet 5 mg PO HS polyethylene glycol 3350 [Miralax] 17 gram Powder In Packet 17 g PO DAILY PRN (Reason: Constipation) acetaminophen [Tylenol Extra Strength] 500 mg Tablet 1,000 mg PO Q8 PRN (Reason: Pain) cyclosporine [Restasis] 0.05 % Dropperette 1 drp OPB BID Rx Instructions: 1 DROP TO BOTH EYES BID Systane Ultra 0.4-0.3 % Drops 1 drp OPHTHALMIC (EYE) TID lorazepam 0.5 mg tablet 0.5 mg PO QDL mirtazapine 45 mg tablet 45 mg PO HS Systane Gel 0.3 % Gel 1 drp OPB HS ferrous sulfate [Iron (ferrous sulfate)] 325 mg (65 mg iron) Tablet 1 tab PO 3XWK Rx Instructions: every Tuesday, Tuesday, and Tuesday. lorazepam 1 mg tablet 1 mg PO HS sertraline 100 mg tablet 100 mg PO QAM multivitamin [Daily-Hipolito] Tablet 1 tab PO QAM glucosamine sulfate [Glucosamine] 500 mg Tablet 1,500 mg PO DAILY Rx Instructions: administer with a meal magnesium hydroxide [Milk of Magnesia] 400 mg/5 mL Suspension 2,400 - 4,800 mg PO DAILY PRN (Reason: Constipation) hydroxyzine HCl 25 mg Tablet 25 mg PO BID amitriptyline 100 mg tablet 100 mg PO QPM calcium carbonate-vitamin D3 [Calcium 600 + D(3)] 600 mg-10 mcg (400 unit) Tablet 1 tab PO BID bumetanide 2 mg tablet 4 mg PO QAM Rx Instructions: TAKE 2 TABS (4 MG) BY MOUTH ONCE DAILY FOR EDEMA Discharge Orders: Discharge Order (Routine); Ordered 01/02/25 Ordered By: Megan Jacob Admission Data Admit Date/Time: 12/31/24 13:51 Attending Provider: Glen Baeza Admit Provider: Floyd Vences Primary Care Provider: Jame Ruth V. Other Providers: Floyd Vences; [facility] Other Interventions: Discharge Summary Assessment (RN) Last Done: 01/02/25 12:55 Hospital Stay Data Consultations 12/31/24 13:26 ED Decision to Admit Stat Diagnostic Imagining Performed Chest X-Ray 12/31/24 11:09 XR chest 1V portable HISTORY: 84 years-old Female Chest pain, nonspecific COMPARISON: 11/10/2023 TECHNIQUE: AP view of the chest FINDINGS: Cardiac silhouette is enlarged. Pulmonary vascular congestion with right hemidiaphragmatic elevation. Blunting of the costophrenic angles with mild subsegmental bibasilar densities. Bones appear grossly intact. IMPRESSION: 1. Cardiomegaly with pulmonary vascular congestion. 2. Probable trace pleural effusions with bibasilar atelectasis. 3. Chronic right hemidiaphragmatic elevation. ACT 112: Negative or not required by law. The above report was generated using voice recognition software. It may contain grammatical, syntax or spelling errors. Electronically signed by: Job Baird M.D. 12/31/2024 11:28 AM Chest X-Ray 01/02/25 09:45 XR chest 2V PA/lateral CLINICAL HISTORY: hypoxia COMPARISON STUDY: 12/31/2024 FINDINGS: Stable moderate cardiomegaly with increased mild pulmonary vascular congestion. Inspiration is shallow. No consolidation or pleural effusion seen. No pneumothorax. IMPRESSION: Mildly increased CHF. ACT 112: Negative or not required by law. Electronically signed by: Amado Melendez M.D. 01/02/2025 10:49 AM Pending Results Patient Have Any Pending Studies at Discharge: No Discharge Instructions Given to Patient (Per Discharging Provider) Jacqui, You were admitted to the hospital due to chest pain. Your cardiac workup was n egative, including EKGs, echocardiogram, stress tests, and labs. Fortunately, your chest pain resolved. You were evaluated by PT and OT who recommended you return to [facility], but take 2 rest breaks when walking to the dining naidu. The respiratory therapist evaluated you and you do not require supplemental oxygen at rest or with activity. Continue your medications as prescribed. There have not been any medication changes from this hospitalization. Please follow-up with your PCP in 1-2 weeks. It was a pleasure taking care of you while you were in the hospital! Total Time Total Time Spent Total Time Spent (In Minutes): Greater than 30 minutes spent completing this discharge process including direct patient care, medication reconciliation, documentation, review of labs and images, and coordination of care. Coding Level of Care Code 43408 INP/OBS DISCH >30 MIN Diagnoses Chest pain R07.9 Type 2 diabetes mellitus E11.9 Chronic indwelling Bernal catheter Z97.8 Chronic diastolic CHF (congestive heart failure) I50.32 Morbid obesity E66.01
== END 2025-01-02 14:26 | disposition home or self-care (01) ==
LOC: ED 10:54 → 2N 10:54 → SUATTDRO 13:51 → 2N 16:03

== ENCOUNTER 2025-03-21 08:10 | Observation (INO) ==
--- NOTE | 2025-03-21 08:23 | Emergency Department Note ---
Impression & Plan Acute hyponatremia Admission ED Provider Note HPI: History obtained from patient. The patient is a 84-year-old female who presents the emergency department with chief complaint of chest pressure and shortness of breath. Patient states that she has been experiencing these symptoms intermittently over the past 2 to 3 days. Per EMS report the patient was [place] today and was complaining of the symptoms, she appeared to be [place] in color and EMS was contacted. On their arrival the patient had increased work of breathing and was placed on BiPAP, there was no reported hypoxia. On arrival here to the ED the patient appears to be improved, she is saturating well on BiPAP and denies any current chest pain. Patient denies any recent fever/chills. Patient is otherwise hemodynamically stable on arrival. ROS: - Per HPI Differential Diagnosis: Acute CHF exacerbation, ACS, pulmonary embolism, pneumonia, pulmonary edema, pleural effusion, COPD exacerbation, amongst other potential pathologies. *Outpatient medications and allergy history reviewed. PE: General: Alert, obese, no acute distress HEENT: Normocephalic, trachea midline Eyes: Extraocular eye movement is intact, no scleral erythema Pulmonary: Clear to auscultation bilaterally, no wheezing Cardio: Regular rate and rhythm GI: Abdomen is soft to palpation : No suprapubic tenderness MSK: No evidence of trauma or malformation of the extremities, 2+ edema of the bilateral lower extremities Skin: No evidence of rash Neuro: Alert, no focal deficits Psychiatric: Cooperative INDEPENDENT INTERPRETATIONS: color television console monitor: (As interpreted by myself): - An order was placed for continuous cardiac monitoring - Patient was noted to be in sinus rhythm with rate 92 EKG: (As interpreted by myself): Rate: 95 Rhythm: Normal sinus rhythm Intervals: Within normal limits ST changes: No ST elevation Time: 0820 Chest x-ray: (As interpreted by myself): Pulmonary vascular congestion Medical Decision Making: IV was established and lab work obtained, patient was placed on awake overnight monitor. Lab work shows a mild leukocytosis of 11.18, hemoglobin is stable at 11.4, platelet count is normal, venous blood gas shows normal pH. pCO2 is mildly elevated at 56. CMP shows a sodium of 126, this is below the patient's baseline hyponatremia which appears to be around 132-133 normally. There is no evidence of any acute kidney injury, troponin is negative x 1, BNP is within normal limits. Procalcitonin is low suggesting against systemic infection. Urinalysis appears to be positive for UTI. Will send for culture., Blood cultures were ordered, patient was ordered a dose of Rocephin. Chest x-ray suggestive of pulmonary vascular congestion, patient denies any recent fever or cough, low suspicion for pneumonia. On my reevaluation the patient's daughter is at the bedside, she states her preference for admission as the patient has had some severe dyspnea with exertion recently and she feels she might benefit from inpatient rehabilitation. Given her hyponatremia and increased work of breathing this morning I think this is reasonable. Patient will also require treatment for UTI. I discussed the patient's presentation with the [facility] and the patient was placed for admission in stable condition to the service of Dr. Arevalo. Consultants/Discussions held with other healthcare providers: - HospitalistDr. Arevalo Disposition discussion held by myself with: - Patient and patient's daughter at the bedside Diagnosis: 1. Dyspnea on exertion, acute 2. Pulmonary vascular congestion, acute 3. Hyponatremia, acute on chronic 4. Urinary tract infection, acute Disposition: Admission Madi Gallardo DO Emergency Medicine Past Med/Surg History Problem List (Updated 03/21/25 @ 12:49 by Madi Gallardo DO) Acute hyponatremia (Acute) Chest pain (Acute) Morbid obesity Chronic diastolic CHF (congestive heart failure) Type 2 diabetes mellitus Chronic indwelling Bernal catheter (Acute) Type 2 diabetes mellitus Vitamin D deficiency Bleeding Mitral regurgitation Cor pulmonale Incomplete bladder emptying Chronic right-sided congestive heart failure Pulmonary nodules Hypomagnesemia Polypharmacy Generalized muscle weakness Dyspnea on exertion Venous stasis Cardiac valve prolapse (Chronic) Diabetic peripheral neuropathy associated with type 2 diabetes mellitus Chronic interstitial cystitis CAD (coronary artery disease) YARI (obstructive sleep apnea) (Chronic) Osteoporosis Declined further testing GERD (gastroesophageal reflux disease) Dementia Hypertension (Chronic) COPD (chronic obstructive pulmonary disease) Atrial flutter, paroxysmal (Acute) Chronic hyponatremia (Chronic) Morbid obesity with BMI of 45.0-49.9, adult Chronic daily headache BMI 45.0-49.9, adult Bowel incontinence Bulging lumbar disc Chronic constipation Chronic vulvitis Cystocele, midline Gait disturbance Gastroparesis Hematuria, microscopic Hyperlipidemia Hypothyroidism Lymphedema Rectocele Type 2 diabetes mellitus with other circulatory complications Urge and stress incontinence Allergic rhinitis Arthritis Asthma Depression with anxiety Dry eye syndrome of both lacrimal glands Foot deformity, bilateral Insomnia Irritable bowel syndrome Migraine headache Pessary maintenance Post-menopausal atrophic vaginitis Squamous cell carcinoma of skin Venous insufficiency Wears dentures Recurrent UTI (Acute) Esophageal reflux (Acute) Health care maintenance Obesity hypoventilation syndrome Hypokalemia Anticoagulant long-term use Abnormal PFT Medical History Chest pain Complication, blocked Bernal catheter Cough Urinary tract infection History of pulmonary embolism Anemia Hyponatremia Chronic diastolic congestive heart failure Venous stasis ulcer limited to breakdown of skin without varicose veins Acute renal disease Right-sided congestive heart failure Hypercapnic respiratory failure Abnormal PFT Dyspnea Cellulitis Acute hyperglycemia Pneumonia Skin ulcer Rotator cuff tendonitis History of rotator cuff tear History of intestinal obstruction Memory loss Edema Diabetes with neurologic complications Cellulitis of lower leg Atherosclerotic heart disease of [place] coronary artery without angina pectoris Knee pain, bilateral Incontinence Pseudomonas aeruginosa infection Diastolic CHF, acute on chronic Acute metabolic encephalopathy Anemia, iron deficiency UTI (urinary tract infection) Confusion Sepsis Loss of sensation Foot pain Foot deformity Basal pneumonia of both lungs Balance disorder UTI (urinary tract infection) TIA (transient ischemic attack) Diabetes Surgical History History of surgery lysis of intestinal adhesions History of mandibular surgery repair of mandible with endosteal implant History of total hysterectomy H/O oral surgery History of knee replacement Cataract Family History Father Diabetes Prostate cancer Colon cancer Colorectal cancer Mother Diabetes Heart disease Brother Acute myocardial infarction Family/Other Cancer Colorectal cancer sibling Hypertension Other Emphysema lung Denies family history of Ovarian cancer Crohn's disease Breast cancer Lung disease Social History Smoking Status: Unknown if ever smoked Tobacco Type: Cigarettes Age Started Using Tobacco: 17; Age Quit Using Tobacco: 30; packs per day: 1; Second Hand Exposure: No; Do You Dip or Chew Tobacco: No; Hx Alcohol Use: No Hx Substance Use: No Preferred Language: Wolof Communication Ability: Effective Visual Impairment: No Limitations Hearing Ability: Normal Solvent Recoverer Required: No Beliefs That Will Affect Care: None marital status: / Current Living Situation: Senior Care Current Living Situation Comment: living at [facility] current occupational status: retired How many Children do You have: 2 Feels Safe at Home: Yes Childhood Exposure to Second-Hand Smoke: No Diet: regular Dental Care, Regularly: Yes Physical Activity Frequency: Does not Exercise Seatbelt Use: always Sunscreen Use: Yes Assistive Devices: CPAP and Walker Allergies Allergies Allergy/AdvReac Type Severity Reaction Status Date / Time KODAK Inhibitors Allergy Unknown Unknown Verified 01/29/25 09:03 benson Allergy Unknown Unknown Verified 01/29/25 09:03 grass pollen Allergy Unknown Unknown Verified 01/29/25 09:03 perfume Allergy Unknown Unknown Verified 01/29/25 09:03 skin cleanser combination Allergy Unknown Unknown Verified 01/29/25 09:03 no.17 [From Monistat 3] quetiapine [From Seroquel] AdvReac Intermediate Night Verified 01/29/25 09:03 terrors Home Meds Home Medications Medication Instructions Recorded Confirmed acetaminophen 500 mg tablet 1,000 mg PO Q8 PRN Pain 05/16/18 03/21/25 (Tylenol Extra Strength) cyclosporine 0.05 % eye drops in a 1 drp OPB AMHS 05/16/18 03/21/25 dropperette (Restasis) polyethylene glycol 3350 17 gram 17 g PO DAILY PRN Constipation 05/16/18 03/21/25 oral powder packet (Miralax) artificial tears(hypromellose) 0.3 1 drp OPB HS 12/12/18 03/21/25 % eye gel (Systane Gel) ferrous sulfate 325 mg (65 mg 1 tab PO 3XWK 01/20/19 03/21/25 iron) tablet (Iron (ferrous sulfate)) melatonin 10 mg capsule 10 mg PO HS 04/22/20 03/21/25 lorazepam 0.5 mg tablet 0.5 mg PO DIRECTED 07/06/20 03/21/25 peg 400-propylene glycol 0.4 %-0.3 1 drp OPB Q2H PRN DRY EYES WHILE 07/06/20 03/21/25 % eye drops (Systane Ultra) AWAKE mirtazapine 45 mg tablet 45 mg PO HS 09/20/20 03/21/25 lorazepam 1 mg tablet 1 mg PO QPM 03/11/21 03/21/25 sertraline 100 mg tablet 100 mg PO QAM 03/11/21 03/21/25 cetirizine 10 mg tablet (Allergy 10 mg PO BID 06/01/23 03/21/25 Relief (cetirizine)) amitriptyline 100 mg tablet 100 mg PO QPM 11/08/23 03/21/25 calcium 600 mg (as 1 tab PO BID 11/08/23 03/21/25 carbonate)-vitamin D3 10 mcg (400 unit) tablet (Calcium 600 + D(3)) glucosamine sulfate 500 mg tablet 1,500 mg PO QAM 11/08/23 03/21/25 (Glucosamine) multivitamin (Daily-Hipolito tablet) 1 tab PO QAM 11/08/23 03/21/25 diphenhydramine HCl 50 mg capsule 50 mg PO TID PRN Itching 06/05/24 03/21/25 (Banophen) diclofenac sodium 1 % topical gel 2 g topical QID PRN JOINT PAIN 10/25/24 03/21/25 guaifenesin 600 mg tablet, 600 mg PO Q12H PRN Congestion 10/25/24 03/21/25 extended release 12 hr (Mucinex) bumetanide 2 mg tablet 4 mg PO QAM 12/31/24 03/21/25 conjugated estrogens 0.625 mg/gram 1,000 mg vaginal 3XWK 01/30/25 03/21/25 vaginal cream donepezil 10 mg tablet 10 mg PO HS 01/30/25 03/21/25 ergocalciferol (vitamin D2) 1,250 1,250 mcg PO WK 01/30/25 03/21/25 mcg (50,000 unit) capsule ipratropium bromide 17 2 puff inhalation QID Shortness Of 01/30/25 03/21/25 mcg/actuation HFA aerosol inhaler Breath Or Wheezing (Atrovent HFA) levothyroxine 200 mcg tablet 200 mcg PO DAILYBB 01/30/25 03/21/25 potassium chloride 40 mEq/15 mL 20 meq PO BID 01/30/25 03/21/25 oral liquid nystatin 100,000 unit/gram topical 1 applic topical BID PRN Rash 02/17/25 03/21/25 powder albuterol sulfate 90 mcg/actuation 2 puff inhalation QID PRN 03/21/25 03/21/25 aerosol inhaler Shortness Of Breath atenolol 50 mg tablet 50 mg PO QAM 03/21/25 03/21/25 fluticasone furoate 100 1 inh inhalation QAM 03/21/25 03/21/25 mcg-vilanterol 25 mcg/dose inhalation powder (Breo Ellipta) hydroxyzine HCl 25 mg tablet 25 mg PO BID Pruritus and Anxiety 03/21/25 03/21/25 insulin NPH-regular 70-30 U-100 15 unit subcut QDD 03/21/25 03/21/25 insulin 100 unit/mL subcutaneous pen (Humulin 70/30 U-100 KwikPen) insulin NPH-regular 70-30 U-100 45 unit subcut QDL 03/21/25 03/21/25 insulin 100 unit/mL subcutaneous pen (Humulin 70/30 U-100 KwikPen) insulin NPH-regular 70-30 U-100 50 unit subcut QDB 03/21/25 03/21/25 insulin 100 unit/mL subcutaneous pen (Humulin 70/30 U-100 KwikPen) magnesium hydroxide 400 mg/5 mL 800 - 1,600 mg PO DAILY PRN 03/21/25 03/21/25 oral suspension (Milk of Magnesia) Constipation menthol-zinc oxide 0.2 %-20 % 1 applic topical TID PRN Irritation 03/21/25 03/21/25 topical paste (Remedy Calazime Protect Paste) methenamine hippurate 1 gram tablet 1 g PO QPM 03/21/25 03/21/25 mirabegron 50 mg tablet,extended 50 mg PO QAM 03/21/25 03/21/25 release 24 hr (Myrbetriq) montelukast 10 mg tablet 10 mg PO QPM 03/21/25 03/21/25 spironolactone 25 mg tablet 25 mg PO QAM 03/21/25 03/21/25 vitamin B complex 1 tab PO QAM 03/21/25 03/21/25 Previous Rx's Medication Instructions Recorded duloxetine 60 mg capsule,delayed 60 mg PO BID #60 caps 05/06/21 release blood sugar diagnostic #180 ea 05/28/21 blood-glucose meter (OneTouch #1 ea 06/16/22 Ultra2 Meter) pen needle, diabetic, safety 30 #300 ea 09/14/23 gauge x 1/3" (Novofine Autocover) ketoconazole 2 % shampoo 1 ea topical 2XWK #120 mL 07/16/24 pen needle,diabetic dual safty 30 #100 ea 07/16/24 gauge x 3/16" (Unifine SafeControl Pen Needle) famotidine 20 mg tablet 20 mg PO BID #180 tabs 07/31/24 pantoprazole 40 mg tablet,delayed 40 mg PO QAM #90 tabs 09/25/24 release gabapentin 300 mg capsule 300 mg PO TID #90 caps 11/21/24 nystatin-triamcinolone 100,000 1 applic topical BID PRN itching 11/28/24 unit/gram-0.1 % topical ointment #60 grams apixaban 5 mg tablet (Eliquis) 5 mg PO BID #180 tabs 12/20/24 blood sugar diagnostic (OneTouch #300 ea 12/24/24 Ultra Test strips) lancets 30 gauge #300 ea 01/16/25 tramadol 50 mg tablet 50 mg PO Q12H PRN Pain #60 tabs 03/19/25 Results & Data (ED) Vital Signs Vital Signs - 24 hr 03/21/25 08:05 03/21/25 08:17 03/21/25 08:35 Temperature 37.4 C Temperature Source Oral Pulse Rate 94 H 96 H 95 H Pulse Rate [Right Finger] Pulse Rhythm Regular Pulse Rhythm [Right Finger] Pulse Strength Normal Pulse Strength [Right Finger] Respiratory Rate 22 22 Respiratory Effort / Characteristics Non-Labored Spontaneous Respiratory Depth Normal Normal Respiratory Pattern Regular Blood Pressure 129/89 Blood Pressure [Left Arm] Blood Pressure Mean 102 Blood Pressure Mean [Left Arm] Blood Pressure Position [Left Arm] Pulse Oximetry 94 100 Oxygen Delivery Method BiPAP Fraction of Inspired Oxygen 21 Sepsis Recent Fever Within 48 Hours No Sepsis New/Unexplained Change in Mental Status N/A Sepsis Action Taken by Nursing No Action Required 03/21/25 09:01 03/21/25 10:07 Temperature Temperature Source Pulse Rate 94 H Pulse Rate [Right Finger] 89 Pulse Rhythm Pulse Rhythm [Right Finger] Regular Pulse Strength Pulse Strength [Right Finger] Normal Respiratory Rate 22 18 Respiratory Effort / Characteristics Non-Labored Spontaneous Respiratory Depth Normal Respiratory Pattern Regular Blood Pressure 121/49 L Blood Pressure [Left Arm] 126/56 L Blood Pressure Mean 69 Blood Pressure Mean [Left Arm] 79 Blood Pressure Position [Left Arm] Sitting Pulse Oximetry 92 90 Oxygen Delivery Method BiPAP Room Air Fraction of Inspired Oxygen Sepsis Recent Fever Within 48 Hours Sepsis New/Unexplained Change in Mental Status Sepsis Action Taken by Nursing Laboratory Data 03/21/25 08:50 03/21/25 08:50 Lab Results 03/21/25 03/21/25 Range/Units 08:50 08:55 WBC 11.18 H (4.8-10.8) K/ul RBC 3.94 L (4.20-5.40) M/uL Hgb 11.4 L (12.0-16.0) g/dl Hct 34.0 L (37.0-47.0) % MCV 86.3 (80.0-100.0) fL MCH 28.9 (25.0-34.0) pg MCHC 33.5 (32.0-36.0) g/dL RDW Std Deviation 43.5 (36.4-46.3) fL RDW Coeff of Chalino 13.9 (11.5-14.5) % Plt Count 248 (130-400) K/uL MPV 9.5 (9.4-12.4) fL Immature Gran % (Auto) 1.5 % Neut % (Auto) 83.1 % Lymph % (Auto) 6.9 % Dixon % (Auto) 7.7 % Eos % (Auto) 0.4 % Baso % (Auto) 0.4 % Neut # (Auto) 9.30 H (1.40-6.50) K/uL Lymph # (Auto) 0.77 L (1.20-3.40) K/uL Dixon # (Auto) 0.86 H (0.11-0.59) K/uL Eos # (Auto) 0.04 (0.00-0.50) K/uL Baso # (Auto) 0.04 (0.00-0.20) K/uL Immature Gran # (Auto) 0.17 (0.01-0.20) K/uL PT 11.5 (9.0-12.0) Seconds INR 1.1 (0.9-1.1) VBG pH 7.37 (7.36-7.41) VBG pCO2 56 H (38-50) mmHg VBG pO2 40 mmHg VBG HCO3 32 mmol/L VBG O2 Saturation 68.0 % VBG Base Excess 5.7 mEq/L Sodium 126 L (136-145) mmol/L Potassium 4.4 (3.5-5.1) mmol/L Chloride 88 L (98-107) mmol/L Carbon Dioxide 30 (21-32) mmol/L Anion Gap 8 (3-11) BUN 13 (6-23) mg/dl Creatinine 1.06 (0.6-1.2) mg/dl Est Cr Clr Drug Dosing 51.8 ml/min eGFR 51.80 BUN/Creatinine Ratio 12.3 (10-20) Glucose 183 H (70-99(Fasting)) mg/dl Osmolality 272 L (280-300) mOsm/kg Calcium 8.1 L (8.6-10.3) mg/dl Magnesium 1.7 (1.7-2.4) mg/dl Total Bilirubin 0.5 (0.2-1.0) mg/dl AST 17 (13-39) U/L ALT 12 (7-52) U/L Alkaline Phosphatase 69 (34-104) U/L Troponin I High Sens 9.5 (0-14) pg/ml B-Natriuretic Peptide 97 (0-100) pg/ml Total Protein 6.8 (6.0-8.3) gm/dl Albumin 3.6 (3.4-5.0) gm/dl Globulin 3.2 (2.5-4.0) gm/dl Albumin/Globulin Ratio 1.1 (0.9-2) Lipase 9 L (11-82) U/L Procalcitonin 0.10 (0-0.5) ng/ml Urine Color Yellow Urine Appearance Turbid A (Clear) Urine pH 8.0 H (4.5-7.5) Ur Specific [place] 1.017 (1.000-1.030) Urine Protein 1+ H (Negative) Urine Glucose (UA) Negative (Negative) Urine Ketones Trace H (Negative) Urine Blood 2+ H (Negative) Urine Nitrite Positive A (Negative) Urine Bilirubin Negative (Negative) Urine Urobilinogen Negative (Negative) Ur Leukocyte Esterase 2+ H (Negative) Urine WBC (Auto) >50 H (0-5) /hpf Urine RBC (Auto) >20 H (0-2) /hpf U Hyaline Cast (Auto) 6-10 H (0-2) /lpf U Epithel Cells (Auto) >20 H (0-2) /hpf Urine Bacteria (Auto) 4+ H (None Seen) Urine Osmolality 495 L (500-800) mOsm/kg Urine Comment Administered Medications Apixaban (Apixaban 5 Mg Tablet) 5 mg PO BID HAO Stop: 04/20/25 11:14 Last Admin: 03/21/25 11:47 Dose: 5 mg Documented By: MMF Duloxetine HCl (Duloxetine Hcl 60 Mg Cap) 60 mg PO BID HAO Stop: 04/20/25 11:14 Last Admin: 03/21/25 11:47 Dose: 60 mg Documented By: MMF Discontinued Medications Atenolol (Atenolol 50 Mg Tablet) 50 mg PO NOW ONE Stop: 03/21/25 10:58 Last Admin: 03/21/25 11:47 Dose: 50 mg Documented By: [facility] Sodium Chloride (Nss) 500 mls @ 999 mls/hr IV .Q31M STA Stop: 03/21/25 08:47 Last Admin: 03/21/25 09:10 Dose: Not Given Documented By: [facility] Bumetanide 4 mg/ Syringe 16 mls @ 4 mls/min IV ONE ONE Stop: 03/21/25 11:00 Last Admin: 03/21/25 11:37 Dose: 4 mls/min Documented By: [facility] Acetaminophen (Ofirmev) 1,000 mg in 100 mls @ 400 mls/hr IV NOW STA Stop: 03/21/25 11:29 Last Infusion: 03/21/25 12:14 Dose: Infused Documented By: Admin: 03/21/25 11:41 Dose: 400 mls/hr Documented By: [facility] Imaging Data Radiologist's Impression: Chest X-Ray 03/21/25 08:17 SINGLE VIEW CHEST CLINICAL HISTORY: Chest pain FINDINGS: An AP, portable, upright chest radiograph is compared to study dated 01/30/2025 and correlated with chest CT dated 11/10/2023. The examination is degraded by portable technique and patient rotation. The heart is enlarged noting atherosclerotic calcification of the thoracic aorta. There is pulmonary vascular congestion. Chronic interstitial thickening is similar to previous. Small pleural effusions are suspected with dependent airspace opacities. No pneumothorax is seen. The skeletal structures are osteopenic. Bony thorax is grossly intact. Advanced arthritic change is noted in the shoulders. Spondylotic change is seen in the spine IMPRESSION: 1. Cardiomegaly with pulmonary vascular congestion. 2. Suspect small pleural effusions. 3. Dependent airspace opacities may represent atelectasis. Correlate clinically for evidence of a superimposed pneumonia. Radiographic follow-up to resolution is recommended. ACT 112: Negative or not required by law. Electronically signed by: Jimbo Vázquez M.D. 03/21/2025 9:28 AM Discharge Plan Visit Data Chief Complaint: Cardiac Assessment Stated Complaint: CHEST PAIN, SOB, EDEMA, DARK URINE ED Provider: Madi Gallardo Discharge Problem: Acute hyponatremia Patient Disposition: Home - Self-Care Condition: Fair
[2025-03-21 09:09] LABS: Base Excess VBG 5.7 mEq/L; HCO3 VBG 32 mmol/L; Oxygen Saturation VBG 68.0 %; PCO2 VBG 56 mmHg (38-50); PO2 VBG 40 mmHg; pH VBG 7.37 (7.36-7.41)
[2025-03-21] MEDS: SODIUM CHLORIDE 0.9% 500 ML IV STA (09:10)
[2025-03-21 09:13] LABS: Hematocrit (blood only) 34.0 % (37.0-47.0); Hemoglobin 11.4 g/dl (12.0-16.0); Immature Granulocytes # (auto) 0.17 K/uL (0.01-0.20); Immature Granulocytes % (auto) 1.5 %; Mean Corpuscular Hemoglobin 28.9 pg (25.0-34.0); Mean Corpuscular Volume 86.3 fL (80.0-100.0); Platelet Count 248 K/uL (130-400); RDW Standard Deviation 43.5 fL (36.4-46.3); Red Blood Count 3.94 M/uL (4.20-5.40); White Blood Count 11.18 K/ul (4.8-10.8)
--- NOTE | 2025-03-21 09:29 | XRay Report ---
SINGLE VIEW CHEST CLINICAL HISTORY: Chest pain FINDINGS: An AP, portable, upright chest radiograph is compared to study dated 01/30/2025 and correlat ed with chest CT dated 11/10/2023. The examination is degraded by portable technique and patient rotat ion. The heart is enlarged noting atherosclerotic calcification of the thoracic aorta. There is pulm onary vascular congestion. Chronic interstitial thickening is similar to previous. Small pleural effu sions are suspected with dependent airspace opacities. No pneumothorax is seen. The skeletal structur es are osteopenic. Bony thorax is grossly intact. Advanced arthritic change is noted in the shoulders . Spondylotic change is seen in the spine IMPRESSION: 1. Cardiomegaly with pulmonary vascular congestion. 2. Suspect small pleural effusions. 3. Dependent airspace opacities may represent atelectasis. Correlate clinically for evidence of a sup erimposed pneumonia. Radiographic follow-up to resolution is recommended. ACT 112: Negative or not required by law. Electronically signed by: Jimbo Vázquez M.D. 03/21/2025 9:28 AM
[2025-03-21 09:31] LABS: Alanine Aminotransferase 12.0 U/L (7-52); Albumin Globulin Ratio 1.1 (0.9-2); Alkaline Phosphatase 69.0 U/L (34-104); Anion Gap 8.0 (3-11); Bilirubin,Total 0.5 mg/dl (0.2-1.0); Blood Urea Nitrogen 13.0 mg/dl (6-23); Calcium 8.1 mg/dl (8.6-10.3); Carbon Dioxide 30.0 mmol/L (21-32); Chloride 88.0 mmol/L (98-107); Creatinine Clr Calc Pharmacy 51.8 ml/min; Globulin 3.2 gm/dl (2.5-4.0); Glucose 183.0 mg/dl (70-99(Fasting)); Lipase 9.0 U/L (11-82); Potassium 4.4 mmol/L (3.5-5.1); Sodium 126.0 mmol/L (136-145); Total Protein 6.8 gm/dl (6.0-8.3)
[2025-03-21 09:34] LABS: Appearance Urine Turbid (Clear); Bacteria Urine Automated 4+ (None Seen); Epithelial Cell Urine Auto >20 /hpf (0-2); Glucose Urine UA Negative (Negative); RBC Urine Automated >20 /hpf (0-2); WBC Urine Automated >50 /hpf (0-5)
[2025-03-21 09:39] LABS: INR 1.1 (0.9-1.1); Prothrombin Time 11.5 Seconds (9.0-12.0)
--- NOTE | 2025-03-21 10:21 | History & Physical Report ---
Date of Service March 21, 2025 Assessment & Plan (1) Chest pain: (2) Chronic diastolic CHF (congestive heart failure): (3) Type 2 diabetes mellitus: (4) Cor pulmonale: (5) Dyspnea on exertion: (6) YARI (obstructive sleep apnea): (7) GERD (gastroesophageal reflux disease): (8) Hypertension: (9) Dementia: (10) Atrial flutter, paroxysmal: (11) COPD (chronic obstructive pulmonary disease): (12) Hypothyroidism: (13) Chronic interstitial cystitis: Plan 84yo presents for increased chest pressure/shortness of breath and work of breathing placed on BiPAP en route (no hypoxia) and decreased work of breathing on arrival, on room air in room during exam but elevated CO2 in patient w/ hx YARI but no longer on NIPPV (reports not thinking she has it). Weight up 135.9kg 126.4kg in February. Recent cystoscopy for urinary symptoms/bleeding and chambers in place, UA appearing infected and concerns for UTI also contributing to overall weakness. #Chest Pressure, Shortness of breath, SERNA - concerns for volume overload/increased weight gain over past month as above, ?dietary intake at [facility] Trend troponin, recent ECHO w/ stable EF as below but repeating w/ unclear cause for weight gain and prior reduced EF per daughter Duonebs available Monitor response to diuretics below, tx UTI BiPAP HS Would rec repeat overnight O2/resume CPAP/BiPAP therapy as able, will monitor VBG w/ AM labs Monitor on telemetry given hx afib/flutter -remains on eliquis BID, first dose now in ER as didn't get as well as atenolol 50mg (could consider changing to metoprolol or coreg w/ hx HF) #HFpEF- weight up significantly compared to priors, ?diastolic rather than systolic failure w/ recent negative stress echo and improvement in EF compared to prior Continue bumex but increase to 4mg BID Continue atenolol, again consider change to metoprolol vs coreg Did have recent ECHO/dobutamine but unclear reason for weight gain given reports compliance w/ meds and no increased salt intake Could also consider CT chest for further eval alternative etiology for SERNA Monitor strict I&O (has chambers in place) #Chronic Chambers, suspected UTI - Also concerns for weakness, +/- UTI w/ recent cystoscopy(02/25 for hx minor-moderate LUTS w/ bother and irritation, some urgency/frequency-->Cystoscopy w/ some ulcerated partially healed likely thrombosed urethral caruncle/varicosity at distal portion of urethra along left lateral edge w/ mild area of bleeding within ulceration. Inflammation within urethra and around bladder neck, posterior wall and throughout the bladder but no sign ulceration/no mass lesion or other concern within the bladder) Given leukocytosis and recent intervention (prior UA before procedure) and current appearance of UA/urine in chambers--> will order Ceftriaxone IV has been ordered May need to touch base w/ Urology for catheter exchange? Continue myrbetriq but hold methanamine while on abx above Monitor/follow urine culture, de-escalate as able #Hyponatremia- acute on chronic. ?2nd to HF +/- infection. Checking urine/serum osm, TSH w/ AM labs. Diuretics as outlined. BMP in AM #Weakness, Ambulatory Dysfunction - suspect combination of possible infection and overload state Fall precautions, PT/OT, tx as above #Asthma - on RA at present, no significant wheezing. Check mag. Continue usual inhalers/hospital equivalent. Supportive care/incentive spirometer. F/u CXR in AM to ensure resolution in opacities w/ tx #YARI - no longer on CPAP, BiPAP ordered HS/as needed. Continue inhalers/hospital equivalent. Consider resuming CPAP therapy pending repeat overnight study possibly tomorrow #CKD- Cr stable, bumex as above. Prior see proteinuria. Allergy listed for KODAK, ?consider ARB. Renal dose meds/avoid nephrotoxins. BMP in AM #DM II - A1c 7.2, glargine BID w/ SSI ordered but have consulted pharmacy for assistance while inpatient given prior lows. May need adjustment to home regimen. ?also benefit from new GLP-1 for weight loss ?? Likely avoid SGLT-2 w/ chambers/UTIs but could be enteratined DM diet DVT proph: eliquis BID continued Dispo: admit med w/ telemetry, diuretics and tx possible UTI. PT/OT consults pending, daughter joss house keeper overnight (Rama) hopeful for short term [facility] prior to returrning to [facility] however patient hopeful to avoid and will see how she does w/ therapy History of Present Illness Primary Care Provider: Jame Ruth,MD 84yo female presented with increased work of breathing and shortness of breath/chest pressure, has been on/off over the past couple of weeks to months, epigastric/centrally located without radiation. Reports increased symptoms with ambulation/activity, and noticed decrease ability for ambulation over the past couple of weeks due to increased weakness. Chronic chambers at this time w/ recent cystoscopy for incontinence and hematuria. No abx. Denies fever/chills, no recent illness at [facility] per her being aware. Took her am Synthroid and protonix. Is on eliquis for history of aflutter, follows with Dr Lilly. Denies missing her Bumex, or increased salt intake but does have salty foods provided at [facility] per my personal awareness but did discuss weights up 135.9kg from 126.4kg last month without clear cause. Does have some minimal leg edema but daughter reporting not bad at all compared to usual.Some chronic redness to LE, nonpainful. She does have hx YARI but denies use of CPAP at this time and doesn't think she still has it because it "used to wake her up at night when she stopped breathing". Believes her prior ECHO w/ EF 40-45%, mitral valve prolapse - review of most recent dobutamine stress w/ EF improved, no MVP. CXR w/ cardiomegaly w/ pulmonary vascular congestion, small pleural effusions, dependent airspace opacities atelectasis vs PNA. Suspect CXR findings related to HF, but also concerns for possible UTI with recent cystoscopy and recent instrumentation and appearance of UA w/ weakness and will discuss treatment. No current CP/SOB laying fairly flat in bed. No nausea/vomiting, fever or chills. No lightheaded/dizziness. Discussed admission for diuretics, possible antibiotics and therapy evalus. Questions/concerns addressed at htis time. Full code if means short term use ventilator/CPR, no jail. Daughter at bedside during discussion. Hopeful to return to [facility] at discharge but will see how therapy evaluations go and encouraged to consider short term rehab to return to her [facility] rather than SNF as concerned by daughter for such. Per ER provider, was put on BiPAP on arrival, given Nitro and no hypoxia, currently on room air. Allergies Allergy/AdvReac Type Severity Reaction Status Date / Time KODAK Inhibitors Allergy Unknown Unknown Verified 01/29/25 09:03 bensno Allergy Unknown Unknown Verified 01/29/25 09:03 grass pollen Allergy Unknown Unknown Verified 01/29/25 09:03 perfume Allergy Unknown Unknown Verified 01/29/25 09:03 skin cleanser combination Allergy Unknown Unknown Verified 01/29/25 09:03 no.17 [From Monistat 3] quetiapine [From Seroquel] AdvReac Intermediate Night Verified 01/29/25 09:03 terrors Home Medications Medication Instructions Recorded Confirmed Type acetaminophen 500 mg tablet 1,000 mg PO Q8 PRN Pain 05/16/18 03/21/25 History (Tylenol Extra Strength) cyclosporine 0.05 % eye drops in a 1 drp OPB AMHS 05/16/18 03/21/25 History dropperette (Restasis) polyethylene glycol 3350 17 gram 17 g PO DAILY PRN Constipation 05/16/18 03/21/25 History oral powder packet (Miralax) artificial tears(hypromellose) 0.3 1 drp OPB HS 12/12/18 03/21/25 History % eye gel (Systane Gel) ferrous sulfate 325 mg (65 mg 1 tab PO 3XWK 01/20/19 03/21/25 History iron) tablet (Iron (ferrous sulfate)) melatonin 10 mg capsule 10 mg PO HS 04/22/20 03/21/25 History lorazepam 0.5 mg tablet 0.5 mg PO DIRECTED 07/06/20 03/21/25 History peg 400-propylene glycol 0.4 %-0.3 1 drp OPB Q2H PRN DRY EYES WHILE 07/06/20 03/21/25 History % eye drops (Systane Ultra) AWAKE mirtazapine 45 mg tablet 45 mg PO HS 09/20/20 03/21/25 History lorazepam 1 mg tablet 1 mg PO QPM 03/11/21 03/21/25 History sertraline 100 mg tablet 100 mg PO QAM 03/11/21 03/21/25 History duloxetine 60 mg capsule,delayed 60 mg PO BID #60 caps 05/06/21 03/21/25 Rx release blood sugar diagnostic #180 ea 05/28/21 02/17/25 Rx blood-glucose meter (OneTouch #1 ea 06/16/22 02/17/25 Rx Ultra2 Meter) cetirizine 10 mg tablet (Allergy 10 mg PO BID 06/01/23 03/21/25 History Relief (cetirizine)) pen needle, diabetic, safety 30 #300 ea 09/14/23 02/17/25 Rx gauge x 1/3" (Novofine Autocover) amitriptyline 100 mg tablet 100 mg PO QPM 11/08/23 03/21/25 History calcium 600 mg (as 1 tab PO BID 11/08/23 03/21/25 History carbonate)-vitamin D3 10 mcg (400 unit) tablet (Calcium 600 + D(3)) glucosamine sulfate 500 mg tablet 1,500 mg PO QAM 11/08/23 03/21/25 History (Glucosamine) multivitamin (Daily-Hipolito tablet) 1 tab PO QAM 11/08/23 03/21/25 History diphenhydramine HCl 50 mg capsule 50 mg PO TID PRN Itching 06/05/24 03/21/25 History (Banophen) ketoconazole 2 % shampoo 1 ea topical 2XWK #120 mL 07/16/24 03/21/25 Rx pen needle,diabetic dual safty 30 #100 ea 07/16/24 02/17/25 Rx gauge x 3/16" (Unifine SafeControl Pen Needle) famotidine 20 mg tablet 20 mg PO BID #180 tabs 07/31/24 03/21/25 Rx pantoprazole 40 mg tablet,delayed 40 mg PO QAM #90 tabs 09/25/24 03/21/25 Rx release diclofenac sodium 1 % topical gel 2 g topical QID PRN JOINT PAIN 10/25/24 03/21/25 History guaifenesin 600 mg tablet, 600 mg PO Q12H PRN Congestion 10/25/24 03/21/25 History extended release 12 hr (Mucinex) gabapentin 300 mg capsule 300 mg PO TID #90 caps 11/21/24 03/21/25 Rx nystatin-triamcinolone 100,000 1 applic topical BID PRN itching 11/28/24 03/21/25 Rx unit/gram-0.1 % topical ointment #60 grams apixaban 5 mg tablet (Eliquis) 5 mg PO BID #180 tabs 12/20/24 03/21/25 Rx blood sugar diagnostic (OneTouch #300 ea 12/24/24 02/17/25 Rx Ultra Test strips) bumetanide 2 mg tablet 4 mg PO QAM 12/31/24 03/21/25 History lancets 30 gauge #300 ea 01/16/25 02/17/25 Rx conjugated estrogens 0.625 mg/gram 1,000 mg vaginal 3XWK 01/30/25 03/21/25 History vaginal cream donepezil 10 mg tablet 10 mg PO HS 01/30/25 03/21/25 History ergocalciferol (vitamin D2) 1,250 1,250 mcg PO WK 01/30/25 03/21/25 History mcg (50,000 unit) capsule ipratropium bromide 17 2 puff inhalation QID Shortness Of 01/30/25 03/21/25 History mcg/actuation HFA aerosol inhaler Breath Or Wheezing (Atrovent HFA) levothyroxine 200 mcg tablet 200 mcg PO DAILYBB 01/30/25 03/21/25 History potassium chloride 40 mEq/15 mL 20 meq PO BID 01/30/25 03/21/25 History oral liquid nystatin 100,000 unit/gram topical 1 applic topical BID PRN Rash 02/17/25 03/21/25 History powder tramadol 50 mg tablet 50 mg PO Q12H PRN Pain #60 tabs 03/19/25 03/21/25 Rx albuterol sulfate 90 mcg/actuation 2 puff inhalation QID PRN 03/21/25 03/21/25 History aerosol inhaler Shortness Of Breath atenolol 50 mg tablet 50 mg PO QAM 03/21/25 03/21/25 History fluticasone furoate 100 1 inh inhalation QAM 03/21/25 03/21/25 History mcg-vilanterol 25 mcg/dose inhalation powder (Breo Ellipta) hydroxyzine HCl 25 mg tablet 25 mg PO BID Pruritus and Anxiety 03/21/25 03/21/25 History insulin NPH-regular 70-30 U-100 15 unit subcut QDD 03/21/25 03/21/25 History insulin 100 unit/mL subcutaneous pen (Humulin 70/30 U-100 KwikPen) insulin NPH-regular 70-30 U-100 45 unit subcut QDL 03/21/25 03/21/25 History insulin 100 unit/mL subcutaneous pen (Humulin 70/30 U-100 KwikPen) insulin NPH-regular 70-30 U-100 50 unit subcut QDB 03/21/25 03/21/25 History insulin 100 unit/mL subcutaneous pen (Humulin 70/30 U-100 KwikPen) magnesium hydroxide 400 mg/5 mL 800 - 1,600 mg PO DAILY PRN 03/21/25 03/21/25 History oral suspension (Milk of Magnesia) Constipation menthol-zinc oxide 0.2 %-20 % 1 applic topical TID PRN Irritation 03/21/25 03/21/25 History topical paste (Remedy Calazime Protect Paste) methenamine hippurate 1 gram tablet 1 g PO QPM 03/21/25 03/21/25 History mirabegron 50 mg tablet,extended 50 mg PO QAM 03/21/25 03/21/25 History release 24 hr (Myrbetriq) montelukast 10 mg tablet 10 mg PO QPM 03/21/25 03/21/25 History spironolactone 25 mg tablet 25 mg PO QAM 03/21/25 03/21/25 History vitamin B complex 1 tab PO QAM 03/21/25 03/21/25 History Past Med/Surg History Problem List (Updated 03/21/25 @ 12:49 by Madi Gallardo DO) Acute hyponatremia (Acute) Chest pain (Acute) Morbid obesity Chronic diastolic CHF (congestive heart failure) Type 2 diabetes mellitus Chronic indwelling Chambers catheter (Acute) Type 2 diabetes mellitus Vitamin D deficiency Bleeding Mitral regurgitation Cor pulmonale Incomplete bladder emptying Chronic right-sided congestive heart failure Pulmonary nodules Hypomagnesemia Polypharmacy Generalized muscle weakness Dyspnea on exertion Venous stasis Cardiac valve prolapse (Chronic) Diabetic peripheral neuropathy associated with type 2 diabetes mellitus Chronic interstitial cystitis CAD (coronary artery disease) YARI (obstructive sleep apnea) (Chronic) Osteoporosis Declined further testing GERD (gastroesophageal reflux disease) Dementia Hypertension (Chronic) COPD (chronic obstructive pulmonary disease) Atrial flutter, paroxysmal (Acute) Chronic hyponatremia (Chronic) Morbid obesity with BMI of 45.0-49.9, adult Chronic daily headache BMI 45.0-49.9, adult Bowel incontinence Bulging lumbar disc Chronic constipation Chronic vulvitis Cystocele, midline Gait disturbance Gastroparesis Hematuria, microscopic Hyperlipidemia Hypothyroidism Lymphedema Rectocele Type 2 diabetes mellitus with other circulatory complications Urge and stress incontinence Allergic rhinitis Arthritis Asthma Depression with anxiety Dry eye syndrome of both lacrimal glands Foot deformity, bilateral Insomnia Irritable bowel syndrome Migraine headache Pessary maintenance Post-menopausal atrophic vaginitis Squamous cell carcinoma of skin Venous insufficiency Wears dentures Recurrent UTI (Acute) Esophageal reflux (Acute) Health care maintenance Obesity hypoventilation syndrome Hypokalemia Anticoagulant long-term use Abnormal PFT Medical History Chest pain Complication, blocked Chambers catheter Cough Urinary tract infection History of pulmonary embolism Anemia Hyponatremia Chronic diastolic congestive heart failure Venous stasis ulcer limited to breakdown of skin without varicose veins Acute renal disease Right-sided congestive heart failure Hypercapnic respiratory failure Abnormal PFT Dyspnea Cellulitis Acute hyperglycemia Pneumonia Skin ulcer Rotator cuff tendonitis History of rotator cuff tear History of intestinal obstruction Memory loss Edema Diabetes with neurologic complications Cellulitis of lower leg Atherosclerotic heart disease of [place] coronary artery without angina pectoris Knee pain, bilateral Incontinence Pseudomonas aeruginosa infection Diastolic CHF, acute on chronic Acute metabolic encephalopathy Anemia, iron deficiency UTI (urinary tract infection) Confusion Sepsis Loss of sensation Foot pain Foot deformity Basal pneumonia of both lungs Balance disorder UTI (urinary tract infection) TIA (transient ischemic attack) Diabetes Surgical History History of surgery lysis of intestinal adhesions History of mandibular surgery repair of mandible with endosteal implant History of total hysterectomy H/O oral surgery History of knee replacement Cataract Family History Father Diabetes Prostate cancer Colon cancer Colorectal cancer Mother Diabetes Heart disease Brother Acute myocardial infarction Family/Other Cancer Colorectal cancer sibling Hypertension Other Emphysema lung Denies family history of Ovarian cancer Crohn's disease Breast cancer Lung disease Social History Smoking Status: Former smoker Tobacco Type: Cigarettes Age Started Using Tobacco: 17; Age Quit Using Tobacco: 30; packs per day: 1; Second Hand Exposure: No; Do You Dip or Chew Tobacco: No; Hx Alcohol Use: No Hx Substance Use: No Preferred Language: Barbadian Communication Ability: Effective Visual Impairment: No Limitations Hearing Ability: Normal Buffing Machine Operator Semiautomatic Required: No Beliefs That Will Affect Care: None marital status: / Current Living Situation: Personal Care Facility Current Living Situation Comment: living at [facility] current occupational status: retired How many Children do You have: 2 Feels Safe at Home: Yes Childhood Exposure to Second-Hand Smoke: No Diet: regular Dental Care, Regularly: Yes Physical Activity Frequency: Does not Exercise Seatbelt Use: always Sunscreen Use: Yes Assistive Devices: Walker and Wheelchair Review of Systems Review of Systems: All systems reviewed & are unremarkable except as noted in HPI & below Physical Exam Physical Exam: General: 84yo female laying in bed, daughter at bedside, fatigued appearing but NAD HEENT head atraumatic, normocephalic, mmm, trachea midline, ?JVD mild laying 30 degrees Resp: diminished in the bases, bibasilar crackles/rales, no significant wheezing, on room air, +cough, no tachypnea CV: regular, rates 90s at present, faint systolic murmur, trace pedal edema, chronic venous insufficiency, pulses present GI:+BS, soft but obese/slight distension, no tenderness/guarding : chambers w/ cloudy drainage, some sediment/chunks in tubing MSK/Neuro: generalized weakness but able to follow commands, no slurred speech/facial droop Psych: alert to person, knows in hospital, event but intermittent confusion about weather or not she took her meds this morning (daughter confirmed w/ [facility] only protonix and synthroid) Results & Data Results & Data Vital Signs (Past 12 Hours) Vital Signs Temp Pulse Pulse Resp BP BP Pulse Ox 03/21/25 10:07 89 18 126/56 L 90 03/21/25 09:01 94 H 22 121/49 L 92 03/21/25 08:35 95 H 03/21/25 08:17 37.4 C 96 H 22 129/89 100 03/21/25 08:05 94 H 22 94 O2 Del Method FiO2 03/21/25 10:07 Room Air 03/21/25 09:01 BiPAP 03/21/25 08:35 03/21/25 08:17 BiPAP 03/21/25 08:05 21 Laboratory Results 03/21/25 03/21/25 Range/Units 08:55 08:50 WBC 11.18 H (4.8-10.8) K/ul RBC 3.94 L (4.20-5.40) M/uL Hgb 11.4 L (12.0-16.0) g/dl Hct 34.0 L (37.0-47.0) % MCV 86.3 (80.0-100.0) fL MCH 28.9 (25.0-34.0) pg MCHC 33.5 (32.0-36.0) g/dL RDW Std Deviation 43.5 (36.4-46.3) fL RDW Coeff of Chal[place] 13.9 (11.5-14.5) % Plt Count 248 (130-400) K/uL MPV 9.5 (9.4-12.4) fL Immature Gran % (Auto) 1.5 % Neut % (Auto) 83.1 % Lymph % (Auto) 6.9 % [place] % (Auto) 7.7 % Eos % (Auto) 0.4 % Baso % (Auto) 0.4 % Neut # (Auto) 9.30 H (1.40-6.50) K/uL Lymph # (Auto) 0.77 L (1.20-3.40) K/uL [place] # (Auto) 0.86 H (0.11-0.59) K/uL Eos # (Auto) 0.04 (0.00-0.50) K/uL Baso # (Auto) 0.04 (0.00-0.20) K/uL Immature Gran # (Auto) 0.17 (0.01-0.20) K/uL PT 11.5 (9.0-12.0) Seconds INR 1.1 (0.9-1.1) VBG pH 7.37 (7.36-7.41) VBG pCO2 56 H (38-50) mmHg VBG pO2 40 mmHg VBG HCO3 32 mmol/L VBG O2 Saturation 68.0 % VBG Base Excess 5.7 mEq/L Sodium 126 L (136-145) mmol/L Potassium 4.4 (3.5-5.1) mmol/L Chloride 88 L (98-107) mmol/L Carbon Dioxide 30 (21-32) mmol/L Anion Gap 8 (3-11) BUN 13 (6-23) mg/dl Creatinine 1.06 (0.6-1.2) mg/dl Est Cr Clr Drug Dosing 51.8 ml/min eGFR 51.80 BUN/Creatinine Ratio 12.3 (10-20) Glucose 183 H (70-99(Fasting)) mg/dl Osmolality 272 L (280-300) mOsm/kg Calcium 8.1 L (8.6-10.3) mg/dl Magnesium 1.7 (1.7-2.4) mg/dl Total Bilirubin 0.5 (0.2-1.0) mg/dl AST 17 (13-39) U/L ALT 12 (7-52) U/L Alkaline Phosphatase 69 (34-104) U/L Troponin I High Sens 9.5 (0-14) pg/ml B-Natriuretic Peptide 97 (0-100) pg/ml Total Protein 6.8 (6.0-8.3) gm/dl Albumin 3.6 (3.4-5.0) gm/dl Globulin 3.2 (2.5-4.0) gm/dl Albumin/Globulin Ratio 1.1 (0.9-2) Lipase 9 L (11-82) U/L Procalcitonin 0.10 (0-0.5) ng/ml Urine Color Yellow Urine Appearance Turbid A (Clear) Urine pH 8.0 H (4.5-7.5) Ur Specific [place] 1.017 (1.000-1.030) Urine Protein 1+ H (Negative) Urine Glucose (UA) Negative (Negative) Urine Ketones Trace H (Negative) Urine Blood 2+ H (Negative) Urine Nitrite Positive A (Negative) Urine Bilirubin Negative (Negative) Urine Urobilinogen Negative (Negative) Ur Leukocyte Esterase 2+ H (Negative) Urine WBC (Auto) >50 H (0-5) /hpf Urine RBC (Auto) >20 H (0-2) /hpf U Hyaline Cast (Auto) 6-10 H (0-2) /lpf U Epithel Cells (Auto) >20 H (0-2) /hpf Urine Bacteria (Auto) 4+ H (None Seen) Urine Osmolality 495 L (500-800) mOsm/kg Urine Comment Supervising Physician Co-Signing Physician Notes I personally saw and examined the patient. I independently reviewed the labs, EKG, imaging, problem list, medication list, past medical history and family h istory. I verified all posada points and agree with Quita Ruiz PA-C with the following exceptions and/or additions: 84 year old female presents to the ER due to chest pain and shortness of breath O/E HS RRR, no murmurs, trace pedal edema, Chest bibasal crackles, Abdo SNT, no CVA tenderness A/P Acute on chronic HFpEF - increase Bumex 4mg IV BID, I&Os, daily weights, TTE as unclear reason No specific cystitis symptoms to suggest infection at this time. Chronic chambers catheter always likely to have bacteria. Recommend holding off antibiotics currently unless she has clinical symptoms or WBC increasing. PG Care Time/CCT Total # of Minutes Spent Total Time Spent with Patient: Total time spent is greater than 50% in coordination of care (as documented) at patient's floor/unit and/or counseling patient: Coding Level of Care Code 71439 INT INP/OBS CARE 3/75MIN Diagnoses Chest pain R07.9 Chest pain type: unspecified Chronic diastolic CHF (congestive heart failure) I50.32 Type 2 diabetes mellitus E11.9 Cor pulmonale I27.81 Dyspnea on exertion R06.09 YARI (obstructive sleep apnea) G47.33 GERD (gastroesophageal reflux disease) K21.9 Essential hypertension I10 Hypertension type: essential hypertension Dementia F03.90 Atrial flutter, paroxysmal I48.92 COPD (chronic obstructive pulmonary disease) J44.9 Hypothyroidism E03.9 Chronic interstitial cystitis N30.10 (1) Chest pain Chest pain type: unspecified Qualified Code(s): R07.9 - Chest pain, unspecified (8) Hypertension Hypertension type: essential hypertension Qualified Code(s): I10 - Essential (primary) hypertension
[2025-03-21 11:01] LABS: Magnesium 1.7 mg/dl (1.7-2.4)
[2025-03-21] MEDS: BUMETANIDE 4 MG in SYRINGE 0 ML IV ONE (11:37)
[2025-03-21] MEDS: ACETAMINOPHEN 1,000 MG/100 ML VIAL IV STA (11:41)
[2025-03-21] MEDS: ATENOLOL 50 MG TABLET PO ONE (11:47)
[2025-03-21] MEDS: APIXABAN 5 MG TABLET PO SCH (11:47)
[2025-03-21] MEDS ORDERED: DEXTROSE 50% 50 ML SYRINGE IV PRN (12:00)
[2025-03-21] MEDS ORDERED: GLUCOSE 40% GEL 15 GM TUBE PO PRN (12:00)
[2025-03-21] MEDS ORDERED: CARBOHYDRATES FOR HYPOGLYCEMIA PO PRN (12:00)
[2025-03-21] MEDS ORDERED: ONDANSETRON INJ 2 MG/ML 2 ML VIAL IV PRN (12:00)
[2025-03-21] MEDS ORDERED: PHARMACY GLYCEMIC MGMT CONSULT PRN (12:00)
[2025-03-21] MEDS ORDERED: GLUCOSE 10 TAB/TUBE PO PRN (12:00)
[2025-03-21] MEDS ORDERED: MAGNESIUM HYDROXIDE SUSP 30 ML UDC PO PRN (12:00)
[2025-03-21] MEDS ORDERED: GLUCAGON FOR INJ 1 MG VIAL SQ PRN (12:00)
[2025-03-21] MEDS ORDERED: LORazepam 0.5 MG TAB PO PRN (12:00)
[2025-03-21] MEDS ORDERED: DICLOFENAC SOD 1% GEL 100 GM TUBE EXT PRN (12:00)
[2025-03-21] MEDS ORDERED: diphenhydrAMINE Capsule 25 MG CAP PO PRN (12:44)
[2025-03-21] MEDS: cefTRIAXone SODIUM 2,000 MG/50 ML BAG IV STA (12:55)
[2025-03-21] MEDS: MAGNESIUM SULFATE / D5W 1 GM/100 ML BAG IV ONE (13:36)
[2025-03-21] MEDS: INSULIN ASPART PER UNIT CHARGE SC SCH (13:37)
[2025-03-21] MEDS: LANTUS PER UNIT CHARGE SQ ONE (13:37)
[2025-03-21] MEDS: GABAPENTIN 300 MG CAP PO SCH (14:04)
--- NOTE | 2025-03-21 15:01 | Pharmacy Report ---
Pharmacy Glycemic Short Note 2 - Date of Service March 21, 2025 - Glycemic Short BSG Results (Last 24 hours): 03/21/25 03/21/25 08:50 12:21 Glucose 183 H POC Glucose 164 H OUTPATIENT ANTIDIABETIC REGIMEN: * Novolin 70/30 50 unit SQ QDB, 45 units SQ QDL, and 15 units SQ QDD * HbA1c pending (03/22/25), 7.2% (10/25/24) ASSESSMENT: * Jacqui is an 84 year old female admitted with shortness of breath and a history of type 2 diabetes mellitus. Pharmacy has been consulted to assist with glycemic management while inpatient. * BSG upon admission acceptable, will dose basal based on previous admissions with a scale for BSGs above or below goal range * NovoLog at previous parameters, no glycemic stressors noted at this time. PLAN FOR INPATIENT GLYCEMIC CONTROL: * Hold outpatient oral diabetes medications * Basal insulin * Lantus 30 units SQ x1 * Lantus 25-35 SQ BID (see eMAR for additional details) * Bolus insulin * NovoLog per scale ACHS or Q6hrs while NPO * Goal Range: Low 120 mg/dL - High 180 mg/dL * Correction Factor: 15 mg/dL/unit * Nutritional / Prandial insulin per carb ratio of 1 unit per 5 grams CHO consumed
--- NOTE | 2025-03-21 15:57 | XCELERA ---
[id number]
[2025-03-21] MEDS: BUMETANIDE 4 MG in SYRINGE 0 ML IV SCH (18:22)
--- NOTE | 2025-03-21 18:40 | Electrocardiogram Report ---
Test Reason : Blood Pressure : */* mmHG Vent. Rate : 95 BPM Atrial Rate : 95 BPM P-R Int : 190 ms QRS Dur : 86 ms QT Int : 334 ms P-R-T Axes : 58 52 50 degrees QTcB Int : 419 ms Normal sinus rhythm with PACs Normal ECG Confirmed by Sterling Lilly ([id number]) on 03/21/2025 6:39:51 PM Referred By: [facility] Confirmed By: Sterling Lilly
[2025-03-21] MEDS: LANTUS PER UNIT CHARGE SQ SCH (21:05)
[2025-03-21] MEDS: ACETAMINOPHEN 500 MG TAB PO PRN (21:06)
[2025-03-21] MEDS: CALCIUM 600MG + VIT D 400 IU TAB PO SCH (21:06)
[2025-03-21] MEDS: DONEPEZIL HCL 10 MG TAB PO SCH (21:06)
[2025-03-21] MEDS: CETIRIZINE HCL 10 MG TABLET PO SCH (21:07)
[2025-03-21] MEDS: LORazepam 1 MG TAB PO SCH (21:08)
[2025-03-21] MEDS: MIRTAZAPINE SOLTAB 15 MG PO SCH (21:08)
[2025-03-21] MEDS: AMITRIPTYLINE HCL 100 MG TAB PO SCH (21:09)
[2025-03-21] MEDS: ARTIFICIAL TEARS OP OINT 3.5 GM TUBE OP SCH (21:09)
[2025-03-21] MEDS: MONTELUKAST SODIUM 10 MG TABLET PO SCH (21:10)
[2025-03-21] MEDS: POTASSIUM CHLORIDE PWD 20 MEQ PACK PO SCH (21:31)
[2025-03-22] MEDS: LEVOTHYROXINE SODIUM 200 MCG TABLET PO SCH (06:07)
[2025-03-22 06:30] LABS: Hematocrit (blood only) 33.8 % (37.0-47.0); Hemoglobin 11.6 g/dl (12.0-16.0); Immature Granulocytes # (auto) 0.09 K/uL (0.01-0.20); Immature Granulocytes % (auto) 1.5 %; Mean Corpuscular Hemoglobin 29.8 pg (25.0-34.0); Mean Corpuscular Volume 86.9 fL (80.0-100.0); Platelet Count 218 K/uL (130-400); RDW Standard Deviation 43.7 fL (36.4-46.3); Red Blood Count 3.89 M/uL (4.20-5.40); White Blood Count 6.04 K/ul (4.8-10.8)
[2025-03-22 06:46] LABS: Anion Gap 6.0 (3-11); Blood Urea Nitrogen 15.0 mg/dl (6-23); Calcium 8.0 mg/dl (8.6-10.3); Carbon Dioxide 34.0 mmol/L (21-32); Chloride 90.0 mmol/L (98-107); Creatinine Clr Calc Pharmacy 49.8 ml/min; Glucose 111.0 mg/dl (70-99(Fasting)); Magnesium 1.9 mg/dl (1.7-2.4); Potassium 4.1 mmol/L (3.5-5.1); Sodium 130.0 mmol/L (136-145)
[2025-03-22 07:01] LABS: Thyroid Stimulating Hormone 0.476 uIu/ml (0.300-4.500)
[2025-03-22 07:32] LABS: Hemoglobin A1C 6.8 % (4.5-5.6)
--- NOTE | 2025-03-22 08:25 | XRay Report ---
EXAM: XR chest 1V portable CLINICAL HISTORY: f/u pulmonary congestion/chf TECHNIQUE: An X-ray image of the chest is obtained in AP projection. COMPARISON: 01/30/2025. FINDINGS: Pulmonary Parenchyma: Unchanged bilateral parahilar pulmonary congestion. Unchanged mild haziness in bilateral lower zones and obscured CP angles likely pleural effusion. No pulmonary nodules are identified. Heart and Mediastinum: Cardiomegaly. No mediastinal widening or masses. No hilar or mediastinal lymphadenopathy. Bony Thorax: Degenerative changes in bilateral shoulder joints. Bony thorax appears intact without fractures or deformities. Soft Tissues: Soft tissues overlying the chest wall are unremarkable. IMPRESSION: 1. Unchanged bilateral parahilar pulmonary congestion. 2. Unchanged mild haziness in bilateral lower zones and obscured CP angles likely pleural effusion. 3. Cardiomegaly. 4. No significant interval changes. Electronically signed by Chago Otero 03-22-2025 08:23 AM
[2025-03-22] MEDS ORDERED: BUMETANIDE 4 MG in SYRINGE 0 ML IV SCH (09:00)
[2025-03-22] MEDS ORDERED: PREMARIN VAG CRM 14 APPLN/30 GM TUBE PV SCH (09:00)
[2025-03-22] MEDS: VIBEGRON 75 MG TAB PO SCH (09:16)
[2025-03-22] MEDS: GLUCOSAMINE SULFATE 500 MG CAP PO SCH (09:16)
[2025-03-22] MEDS: ATENOLOL 50 MG TABLET PO SCH (09:16)
[2025-03-22] MEDS: SPIRONOLACTONE 25 MG TAB PO SCH (09:17)
[2025-03-22] MEDS: SERTRALINE HCL 100 MG TABLET PO SCH (09:17)
[2025-03-22] MEDS: FLUTICASONE/VILANTEROL 100/25MCG 14 PUFFS/INHALER INH SCH (09:18)
--- NOTE | 2025-03-22 09:58 | Pharmacy Report ---
Pharmacy Glycemic Short Note 2 - Date of Service March 22, 2025 - Glycemic Short BSG Results (Last 24 hours): 03/21/25 03/21/25 03/21/25 12:21 16:56 20:08 Glucose POC Glucose 164 H 204 H 209 H 03/22/25 03/22/25 05:56 07:56 Glucose 111 H POC Glucose 143 H OUTPATIENT ANTIDIABETIC REGIMEN: * Novolin 70/30 50 unit SQ QDB, 45 units SQ QDL, and 15 units SQ QDD * HbA1c pending (03/22/25), 7.2% (10/25/24) ASSESSMENT: 03/22 * Jacqui received 85 units of insulin yesterday (65 were basal) * Fasting BSG this AM excellent, will continue current basal regimen. * No changes to NovoLog at this time, may need tighter carbohydrate ratio, will continue to trend. 03/21 * Jacqui is an 84 year old female admitted with shortness of breath and a history of type 2 diabetes mellitus. Pharmacy has been consulted to assist with glycemic management while inpatient. * BSG upon admission acceptable, will dose basal based on previous admissions with a scale for BSGs above or below goal range * NovoLog at previous parameters, no glycemic stressors noted at this time. PLAN FOR INPATIENT GLYCEMIC CONTROL: * Hold outpatient oral diabetes medications * Basal insulin * Lantus 25-35 SQ BID (see eMAR for additional details) * Bolus insulin * NovoLog per scale ACHS or Q6hrs while NPO * Goal Range: Low 120 mg/dL - High 180 mg/dL * Correction Factor: 15 mg/dL/unit * Nutritional / Prandial insulin per carb ratio of 1 unit per 5 grams CHO consumed
[2025-03-22] MEDS ORDERED: Nursing to Pharmacy Communication SCH (10:30)
[2025-03-22] MEDS: acetaZOLAMIDE 500 MG in SYRINGE 0 ML IV STA (15:53)
--- NOTE | 2025-03-22 16:19 | Hospitalist Progress Note ---
Date of Service March 22, 2025 Assessment & Plan (1) Chest pain: (2) Chronic diastolic CHF (congestive heart failure): (3) Type 2 diabetes mellitus: (4) Cor pulmonale: (5) Dyspnea on exertion: (6) YARI (obstructive sleep apnea): (7) GERD (gastroesophageal reflux disease): (8) Hypertension: (9) Dementia: (10) Atrial flutter, paroxysmal: (11) COPD (chronic obstructive pulmonary disease): (12) Hypothyroidism: (13) Chronic interstitial cystitis: Plan 84yo presents for increased chest pressure/shortness of breath and work of breathing placed on BiPAP en route (no hypoxia) and decreased work of breathing on arrival, on room air in room during exam but elevated CO2 in patient w/ hx YARI but no longer on NIPPV (reports not thinking she has it). #HFpEF (acute on chronic) concerns for volume overload/increased weight gain over past month Echo 03/21: EF 55-60%; LV systolic function normal. NO significant valvular heart disease. CXR 03/22: unchanged b/l parahilar pulmonary congestion. unchanged mild haziness in b/l lower zones & obscured CP angles, likely pleural effusion. Cardiomegaly. No change from 03/21 Troponin negative x 3; BNP negative. CBC stable. BMP w/ rising Co2 s/p 2 doses of 4mg IV Bumex. --> outpatient diuretic dose is Bumex 4mg PO daily. s/p 1 time dose of 500mg IV Acetazolamide. Monitor intake & output. Daily standing weight if possible. Overnight Pulse ox study for 03/23. If not improving after diuresis, could consider chest CT Will likely require 2 step w/ respiratory prior to dc. 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 Inflammation within urethra & around bladder neck, posterior wall & throughout bladder but no sign ulceration/no mass lesion or other concern within bladder. CBC w/ resolution of leukocytosis. BC negative @ 24hrs. Urine culture negative. Patient asymptomatic from a urological standpoint at this time. s/p 1 dose of Rocephin --> deferred further given absence of symptoms & now negative UC. #Hyponatremia- acute on chronic. ?2nd to HF improvement of Na from 126 to 130 after diuresis. #Weakness, Ambulatory Dysfunction Fall precautions PT/OT--> back to [facility] w/ home health. #Asthma Continue usual inhalers/hospital equivalent. Supportive care/incentive spirometer. #YARI -repeat overnight pulse ox. Will likely require CPAP again. #CKD Creatinine stable @ 1.05 Renal dose meds/avoid nephrotoxins. BMP in AM #DM II A1c 7.2 glargine BID w/ SSI ordered Pharmacy consulted to aide w/ glycemic management. DVT proph: eliquis BID continued Code: full Admission and Anticipated Discharge Date Admission Date: March 21, 2025 Jose Osman seen and examined this morning. She feels her shortness of breath and chest tightness are unchanged from yesterday. She states when she walks her shor tness of breath still increases. Physical Exam Constitutional: WD/WN, vitals as above Eyes: PERRL, conjunctivae normal, anicteric sclerae Respiratory: clear but diminished at bases Cardiovascular: RRR, no murmur, no edema Neurologic: PERRL, EOMI, accommodation nl, no face palsy, no dysarthria Psychiatric: A+Ox3, euthymic affect Results & Data Results & Data Vital Signs (Past 12 Hours) Vital Signs Temp Pulse Pulse Resp BP Pulse Ox O2 Del Method 03/22/25 16:09 36.8 C 80 18 129/75 91 Room Air 03/22/25 13:06 97 03/22/25 11:28 36.5 C 90 20 120/75 92 Room Air 03/22/25 09:20 Room Air 03/22/25 08:23 36.4 C L 90 20 146/77 H 97 Nasal Cannula 03/22/25 07:17 85 O2 Flow Rate 03/22/25 16:09 03/22/25 13:06 03/22/25 11:28 03/22/25 09:20 03/22/25 08:23 3 03/22/25 07:17 PG Care Time/CCT Total # of Minutes Spent Total Time Spent with Patient: Total time spent is greater than 50% in coordination of care (as documented) at patient's floor/unit and/or counseling patient: Coding Level of Care Code 17886 SUB INP/OBS CARE 2/35MIN Diagnoses Chest pain R07.9 Chest pain type: unspecified Chronic diastolic CHF (congestive heart failure) I50.32 Type 2 diabetes mellitus E11.9 Cor pulmonale I27.81 Dyspnea on exertion R06.09 YARI (obstructive sleep apnea) G47.33 GERD (gastroesophageal reflux disease) K21.9 Essential hypertension I10 Hypertension type: essential hypertension Dementia F03.90 Atrial flutter, paroxysmal I48.92 COPD (chronic obstructive pulmonary disease) J44.9 Hypothyroidism E03.9 Chronic interstitial cystitis N30.10 (1) Chest pain Chest pain type: unspecified Qualified Code(s): R07.9 - Chest pain, unspecified (8) Hypertension Hypertension type: essential hypertension Qualified Code(s): I10 - Essential (primary) hypertension
[2025-03-22] MEDS: PREMARIN VAG CRM 14 APPLN/30 GM TUBE PV SCH (21:16)
[2025-03-23 07:45] LABS: Hematocrit (blood only) 35.7 % (37.0-47.0); Hemoglobin 11.7 g/dl (12.0-16.0); Mean Corpuscular Hemoglobin 28.8 pg (25.0-34.0); Mean Corpuscular Volume 87.9 fL (80.0-100.0); Platelet Count 255 K/uL (130-400); RDW Standard Deviation 44.4 fL (36.4-46.3); Red Blood Count 4.06 M/uL (4.20-5.40); White Blood Count 6.69 K/ul (4.8-10.8)
[2025-03-23 08:03] LABS: Anion Gap 7.0 (3-11); Blood Urea Nitrogen 17.0 mg/dl (6-23); Calcium 8.6 mg/dl (8.6-10.3); Carbon Dioxide 31.0 mmol/L (21-32); Chloride 92.0 mmol/L (98-107); Creatinine Clr Calc Pharmacy 49.1 ml/min; Glucose 145.0 mg/dl (70-99(Fasting)); Magnesium 2.1 mg/dl (1.7-2.4); Potassium 3.9 mmol/L (3.5-5.1); Sodium 130.0 mmol/L (136-145)
[2025-03-23] MEDS: guaiFENesin 600 MG TABCR PO PRN (08:10)
[2025-03-23] MEDS: LANTUS PER UNIT CHARGE SQ SCH (09:12)
[2025-03-23] MEDS: NYSTATIN OINT 15 GM TUBE EXT PRN (11:40)
[2025-03-23] MEDS: acetaZOLAMIDE 500 MG in SYRINGE 0 ML IV STA (11:40)
--- NOTE | 2025-03-23 15:32 | Hospitalist Progress Note ---
Date of Service March 23, 2025 Assessment & Plan (1) Chest pain: (2) Chronic diastolic CHF (congestive heart failure): (3) Type 2 diabetes mellitus: (4) Cor pulmonale: (5) Dyspnea on exertion: (6) YARI (obstructive sleep apnea): (7) GERD (gastroesophageal reflux disease): (8) Hypertension: (9) Dementia: (10) Atrial flutter, paroxysmal: (11) COPD (chronic obstructive pulmonary disease): (12) Hypothyroidism: (13) Chronic interstitial cystitis: Plan 84yo presents for increased chest pressure/shortness of breath and work of breathing placed on BiPAP en route (no hypoxia) and decreased work of breathing on arrival, on room air in room during exam but elevated CO2 in patient w/ hx YARI but no longer on NIPPV (reports not thinking she has it). #HFpEF (acute on chronic) concerns for volume overload/increased weight gain over past month Echo 03/21: EF 55-60%; LV systolic function normal. NO significant valvular heart disease. CXR 03/22: unchanged b/l parahilar pulmonary congestion. unchanged mild haziness in b/l lower zones & obscured CP angles, likely pleural effusion. Cardiomegaly. No change from 03/21 Troponin negative x 3; BNP negative. CBC stable. BMP w/ rising Co2 s/p 2 doses of 4mg IV Bumex. --> outpatient diuretic dose is Bumex 4mg PO daily. s/p 2 doses of 500mg IV Acetazolamide. Monitor intake & output. Daily standing weight if possible. Overnight Pulse ox study in which she did require O2 overnight --> recommend restarting CPAP evening of 03/23. If not improving after diuresis, could consider chest CT Will likely require 2 step w/ respiratory prior to dc. 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 Inflammation within urethra & around bladder neck, posterior wall & throughout bladder but no sign ulceration/no mass lesion or other concern within bladder. CBC w/ resolution of leukocytosis. BC negative @ 48hrs. Urine culture negative. Patient asymptomatic from a urological standpoint at this time. s/p 1 dose of Rocephin --> deferred further given absence of symptoms & now negative UC. #Hyponatremia- acute on chronic. 2nd to HF improvement of Na from 126 to 130 after diuresis. #Weakness, Ambulatory Dysfunction Fall precautions PT/OT--> back to [facility] w/ home health. #Asthma Continue usual inhalers/hospital equivalent. Supportive care/incentive spirometer. #YARI -repeat overnight pulse ox. Will likely require CPAP again. #CKD Creatinine stable @ 1.06 Renal dose meds/avoid nephrotoxins. BMP in AM #DM II A1c 7.2 glargine BID w/ SSI ordered Pharmacy consulted to aide w/ glycemic management. DVT proph: eliquis BID continued Code: full Admission and Anticipated Discharge Date Admission Date: March 21, 2025 Jose Osman seen and examined this morning. She states she is feeling better today. She believes her SOB has improved slightly. She still feels that the SOB could improve more. Discussed her hx of CPAP use & she states she hasn't used this in years but would be agreeable to use this again. Physical Exam Constitutional: WD/WN, vitals as above Eyes: PERRL, conjunctivae normal, anicteric sclerae Respiratory: normal respiratory effort, lungs clear to auscultation Cardiovascular: RRR, no murmur, no edema Psychiatric: A+Ox3, euthymic affect Results & Data Results & Data Vital Signs (Past 12 Hours) Vital Signs Temp Pulse Pulse Resp BP Pulse Ox Pulse Ox 03/23/25 15:08 36.5 C 75 20 103/55 L 98 03/23/25 13:34 86 03/23/25 11:19 36.3 C L 71 20 109/64 94 03/23/25 09:32 03/23/25 08:08 36.5 C 84 20 168/76 H 97 03/23/25 07:20 80 03/23/25 04:57 96 03/23/25 04:28 36.4 C L 77 20 131/75 98 O2 Del Method O2 Del Method O2 Flow Rate O2 Flow Rate 03/23/25 15:08 Room Air 03/23/25 13:34 03/23/25 11:19 Room Air 03/23/25 09:32 Nasal Cannula 2 03/23/25 08:08 Nasal Cannula 2 03/23/25 07:20 03/23/25 04:57 Nasal Cannula 2 03/23/25 04:28 Room Air PG Care Time/CCT Total # of Minutes Spent Total Time Spent with Patient: Total time spent is greater than 50% in coordination of care (as documented) at patient's floor/unit and/or counseling patient: Coding Level of Care Code 73589 SUB INP/OBS CARE 2/35MIN Diagnoses Chest pain R07.9 Chest pain type: unspecified Chronic diastolic CHF (congestive heart failure) I50.32 Type 2 diabetes mellitus E11.9 Cor pulmonale I27.81 Dyspnea on exertion R06.09 YARI (obstructive sleep apnea) G47.33 GERD (gastroesophageal reflux disease) K21.9 Essential hypertension I10 Hypertension type: essential hypertension Dementia F03.90 Atrial flutter, paroxysmal I48.92 COPD (chronic obstructive pulmonary disease) J44.9 Hypothyroidism E03.9 Chronic interstitial cystitis N30.10 (1) Chest pain Chest pain type: unspecified Qualified Code(s): R07.9 - Chest pain, unspecified (8) Hypertension Hypertension type: essential hypertension Qualified Code(s): I10 - Essential (primary) hypertension
[2025-03-24 06:42] LABS: Hematocrit (blood only) 32.9 % (37.0-47.0); Hemoglobin 11.2 g/dl (12.0-16.0); Mean Corpuscular Hemoglobin 29.4 pg (25.0-34.0); Mean Corpuscular Volume 86.4 fL (80.0-100.0); Platelet Count 262 K/uL (130-400); RDW Standard Deviation 42.5 fL (36.4-46.3); Red Blood Count 3.81 M/uL (4.20-5.40); White Blood Count 7.68 K/ul (4.8-10.8)
[2025-03-24 07:00] LABS: Anion Gap 8.0 (3-11); Blood Urea Nitrogen 18.0 mg/dl (6-23); Calcium 8.9 mg/dl (8.6-10.3); Carbon Dioxide 26.0 mmol/L (21-32); Chloride 94.0 mmol/L (98-107); Creatinine Clr Calc Pharmacy 49.0 ml/min; Glucose 139.0 mg/dl (70-99(Fasting)); Potassium 4.1 mmol/L (3.5-5.1); Sodium 128.0 mmol/L (136-145)
[2025-03-24] MEDS: BUMETANIDE 1 MG TAB PO SCH (09:23)
--- NOTE | 2025-03-24 12:14 | Hospitalist Progress Note ---
Date of Service March 24, 2025 Assessment & Plan (1) Chest pain: (2) Chronic diastolic CHF (congestive heart failure): (3) Type 2 diabetes mellitus: (4) Cor pulmonale: (5) Dyspnea on exertion: (6) YARI (obstructive sleep apnea): (7) GERD (gastroesophageal reflux disease): (8) Hypertension: (9) Dementia: (10) Atrial flutter, paroxysmal: (11) COPD (chronic obstructive pulmonary disease): (12) Hypothyroidism: (13) Chronic interstitial cystitis: Plan 84yo presents for increased chest pressure/shortness of breath and work of breathing placed on BiPAP en route (no hypoxia) and decreased work of breathing on arrival, on room air in room during exam but elevated CO2 in patient w/ hx YARI but no longer on NIPPV (reports not thinking she has it). #HFpEF (acute on chronic) concerns for volume overload/increased weight gain over past month --> now below baseline wt of 126kg (121 kg standing weight 03/23) Echo 03/21: EF 55-60%; LV systolic function normal. NO significant valvular heart disease. CXR 03/22: unchanged b/l parahilar pulmonary congestion. unchanged mild haziness in b/l lower zones & obscured CP angles, likely pleural effusion. Cardiomegaly. No change from 03/21 Troponin negative x 3; BNP negative. CBC & BMP remain stable s/p 2 doses of 4mg IV Bumex & 2 doses of 500mg IV Acetazolamide Resume home Bumex dosing (4mg PO daily) 03/24 Monitor intake & output. Daily standing weight if possible. Overnight Pulse ox study in which she did require O2 overnight --> currently not tolerating CPAP - continue O2 via nasal cannula for overnight Will likely require 2 step w/ respiratory prior to dc. 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 Inflammation within urethra & around bladder neck, posterior wall & throughout bladder but no sign ulceration/no mass lesion or other concern within bladder. CBC w/ resolution of leukocytosis. BC negative @ 48hrs. Urine culture negative. Patient asymptomatic from a urological standpoint at this time. s/p 1 dose of Rocephin --> deferred further given absence of symptoms & now negative UC. #Hyponatremia- acute on chronic. 2nd to HF remains stable, continue to monitor. #Weakness, Ambulatory Dysfunction Fall precautions PT/OT following Discussed w/ daughter concerns about going back to [facility] w/ home health on 03/24 --> daughter & H would prefer rehab. Discussed w/ PT 03/24. #Asthma Continue usual inhalers/hospital equivalent. Supportive care/incentive spirometer. #YARI oxygen via nasal cannula overnight currently not tolerating CPAP due to excess coughing #CKD Creatinine stable @ 1.06 Renal dose meds/avoid nephrotoxins. BMP in AM #DM II A1c 7.2 glargine BID w/ SSI ordered Pharmacy consulted to aide w/ glycemic management. DVT proph: eliquis BID continued Code: full Updated daughter at bedside 03/23. Admission and Anticipated Discharge Date Admission Date: March 21, 2025 Jose Osman was seen and examined this morning. She reports to be feeling okay today. She denied any acute complaints. She was sitting in her chair at time of encounter. She did report she could not tolerate CPAP overnight due to increased coughing. She states she did much better when she had oxygen via nasal cannula Physical Exam Constitutional: WD/WN, vitals as above Eyes: PERRL, conjunctivae normal, anicteric sclerae Respiratory: normal respiratory effort, lungs clear to auscultation Cardiovascular: RRR, no murmur, no edema Neurologic: PERRL, EOMI, accommodation nl, no face palsy, no dysarthria Psychiatric: A+Ox3, euthymic affect Results & Data Results & Data Vital Signs (Past 12 Hours) Vital Signs Temp Pulse Resp BP Pulse Ox O2 Del Method O2 Flow Rate 03/24/25 11:35 36.7 C 70 20 112/70 97 Nasal Cannula 2 03/24/25 08:19 36.3 C L 80 18 104/64 97 Nasal Cannula 2 03/24/25 04:17 36.5 C 85 20 174/77 H 96 Room Air, CPAP 03/24/25 00:36 36.8 C 81 20 156/81 H 96 Room Air PG Care Time/CCT Total # of Minutes Spent Total Time Spent with Patient: Total time spent is greater than 50% in coordination of care (as documented) at patient's floor/unit and/or counseling patient: Coding Level of Care Code 14106 SUB INP/OBS CARE 35MIN Diagnoses Chest pain R07.9 Chest pain type: unspecified Chronic diastolic CHF (congestive heart failure) I50.32 Type 2 diabetes mellitus E11.9 Cor pulmonale I27.81 Dyspnea on exertion R06.09 YARI (obstructive sleep apnea) G47.33 GERD (gastroesophageal reflux disease) K21.9 Essential hypertension I10 Hypertension type: essential hypertension Dementia F03.90 Atrial flutter, paroxysmal I48.92 COPD (chronic obstructive pulmonary disease) J44.9 Hypothyroidism E03.9 Chronic interstitial cystitis N30.10 (1) Chest pain Chest pain type: unspecified Qualified Code(s): R07.9 - Chest pain, unspecified (8) Hypertension Hypertension type: essential hypertension Qualified Code(s): I10 - Essential (primary) hypertension
[2025-03-24] MEDS: ARTIFICIAL TEARS OP PRN (21:29)
[2025-03-24] MEDS: ALBUT/IPRATROP 3MG/0.5MG NEB 3 ML VIAL NEB PRN (21:58)
--- NOTE | 2025-03-25 09:07 | XRay Report ---
XR chest 1V portable CLINICAL HISTORY: CHF COMPARISON STUDY: 03/22/2025 FINDINGS: There is stable cardiomegaly with pulmonary vascular congestion. Stable mild hazy opacity a t the left lung base. No pneumothorax. IMPRESSION: Stable exam. ACT 112: Negative or not required by law. Electronically signed by: Amado Melendez M.D. 03/25/2025 9:05 AM
[2025-03-25 11:51] LABS: Anion Gap 8.0 (3-11); Blood Urea Nitrogen 22.0 mg/dl (6-23); Calcium 9.4 mg/dl (8.6-10.3); Carbon Dioxide 28.0 mmol/L (21-32); Chloride 90.0 mmol/L (98-107); Creatinine Clr Calc Pharmacy 44.2 ml/min; Glucose 162.0 mg/dl (70-99(Fasting)); Potassium 4.3 mmol/L (3.5-5.1); Sodium 126.0 mmol/L (136-145)
--- NOTE | 2025-03-25 14:49 | Pharmacy Report ---
Pharmacy Glycemic Short Note 2 - Date of Service March 25, 2025 - Glycemic Short BSG Results (Last 24 hours): 03/24/25 03/24/25 03/25/25 17:17 20:32 07:42 Glucose POC Glucose 121 H 131 H 130 H 03/25/25 03/25/25 10:50 11:49 Glucose 162 H POC Glucose 155 H OUTPATIENT ANTIDIABETIC REGIMEN: * Novolin 70/30 50 unit SQ QDB, 45 units SQ QDL, and 15 units SQ QDD * HbA1c pending (03/22/25), 7.2% (10/25/24) ASSESSMENT: 03/25 * Jacqui received a total of 100 units of insulin yesterday (60 units were basal and 38 units were bolus). All BSGs were in the goal range yesterday. * Fasting BSG was in the goal range so will continue with the current Lantus regimen. * Will also continue bolus insulin regimen without change. 03/22 * Jacqui received 85 units of insulin yesterday (65 were basal) * Fasting BSG this AM excellent, will continue current basal regimen. * No changes to NovoLog at this time, may need tighter carbohydrate ratio, will continue to trend. 03/21 * Jacqui is an 84 year old female admitted with shortness of breath and a history of type 2 diabetes mellitus. Pharmacy has been consulted to assist with glycemic management while inpatient. * BSG upon admission acceptable, will dose basal based on previous admissions with a scale for BSGs above or below goal range * NovoLog at previous parameters, no glycemic stressors noted at this time. PLAN FOR INPATIENT GLYCEMIC CONTROL: * Hold outpatient diabetes medications * Basal insulin * Lantus 30 SQ BID * Bolus insulin * NovoLog per scale ACHS or Q6hrs while NPO * Goal Range: Low 120 mg/dL - High 180 mg/dL * Correction Factor: 15 mg/dL/unit * Nutritional / Prandial insulin per carb ratio of 1 unit per 5 grams CHO consumed
--- NOTE | 2025-03-25 16:39 | Hospitalist Progress Note ---
Date of Service March 25, 2025 Assessment & Plan (1) Chest pain: (2) Chronic diastolic CHF (congestive heart failure): (3) Type 2 diabetes mellitus: (4) Cor pulmonale: (5) Dyspnea on exertion: (6) YARI (obstructive sleep apnea): (7) GERD (gastroesophageal reflux disease): (8) Hypertension: (9) Dementia: (10) Atrial flutter, paroxysmal: (11) COPD (chronic obstructive pulmonary disease): (12) Hypothyroidism: (13) Chronic interstitial cystitis: Plan 84yo presents for increased chest pressure/shortness of breath and work of breathing placed on BiPAP en route (no hypoxia) and decreased work of breathing on arrival, on room air in room during exam but elevated CO2 in patient w/ hx YARI but no longer on NIPPV (reports not thinking she has it) #HFpEF (acute on chronic) Concerns for volume overload/increased weight gain over past month --> now below baseline wt of 126kg (121 kg standing weight 03/23) Echo 03/21: EF 55-60%; LV systolic function normal. NO significant valvular heart disease. CXR 03/22: unchanged b/l parahilar pulmonary congestion. unchanged mild haziness in b/l lower zones & obscured CP angles, likely pleural effusion. Cardiomegaly. No change from 03/21 Troponin negative x 3 BNP negative CBC & BMP remain stable S/p 2 doses of 4mg IV Bumex & 2 doses of 500mg IV Acetazolamide Resume home Bumex dosing (4mg PO daily) 03/24 Monitor intake & output. Daily standing weight if possible. 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 Inflammation within urethra & around bladder neck, posterior wall & throughout bladder but no sign ulceration/no mass lesion or other concern within bladder. CBC w/ resolution of leukocytosis. BC negative @ 48hrs Urine culture negative Patient asymptomatic from a urological standpoint at this time S/p 1 dose of Rocephin --> deferred further given absence of symptoms & now negative UC #Hyponatremia- acute on chronic. 2nd to HF remains stable, continue to monitor #Weakness, Ambulatory Dysfunction Fall precautions Patient reports 3 falls at [facility] in the month [employer] CLERK [employer] PT/OT following Discussed w/ daughter concerns about [facility] w/ home health on 03/24 --> daughter & H would prefer rehab. Discussed w/ PT 03/24. #Asthma Continue usual inhalers/hospital equivalent Supportive care/incentive spirometer #YARI Oxygen via nasal cannula overnight Currently not tolerating CPAP due to excess coughing #CKD Creatinine stable Renal dose meds/avoid nephrotoxins Trend BMP #DM II A1c 6.8% on 03/12/2025 Glargine BID w/ SSI ordered Pharmacy consulted to aide w/ glycemic management Disposition: Continued stay on MedSurg with telemetry Patient accepted at [facility] on 03/25; pending insurance Auth, may be able to be discharged if medically stable on 03/26 DVT proph: Eliquis BID continued Admission and Anticipated Discharge Date Admission Date: March 21, 2025 Supervising Physician Co-Signing Physician Notes The patient was not seen by me. The chart was reviewed. Case discussed with VIC Ram. Agree with assessment and plan Subjective Mrs. Rivero is reports that she is doing well on 03/25. She slept okay, and has been eating and drinking without difficulty. She reports that she has been having dyspnea on exertion over the past several years, but it has been acutely worse over the past month. Normally, she ambulates with a walker at baseline, but restarts she has had 3 falls in the last month and was largely wheelchair bound at [facility] prior to admission. She does put salt on some of her meals at [facility]. Stressed the importance of good salt/dietary compliance. ROS: Patient endorses dyspnea on exertion, wheezing, occasional lightheadedness with movements, and dry cough. Patient denies fever, chills, SOB at rest, chest pain, pleuritic CP, decreased urinary frequency, or changes in urinary or bowel habits. Review of Systems Review of Systems: See HPI above Physical Exam Physical Exam: General: no acute distress; non-toxic appearing; frail appearing; cooperative; SpO2 94% on RA HEENT: normocephalic, atraumatic; no scleral icterus; PERRLA w/ EOMs intact; vision and hearing grossly intact Neck: supple; no lymphadenopathy; trachea midline Skin: warm, dry without signs of tenting; no cyanosis; no rashes, bruising, lesions, or erythema noted CV: chest wall NTP; RRR; S1/S2 normal; no murmurs/rubs/gallops; pulses intact and symmetric at radial, DP, and PT Lungs: no acute respiratory distress; dry cough; symmetrical chest wall expansion; expiratory wheeze auscultated in the lower lung mcwilliams bilaterally ABD: Soft, NTP; BS present; no rebound/guarding; no distention MSK: no tics or fasciculations; +2 pitting edema in the lower extremities bilaterally Neuro: A&Ox3; normal mood and affect; fluent speech; no focal deficits; sensation intact and symmetric in lower extremities bilaterally Results & Data Results & Data Vital Signs (Past 12 Hours) Vital Signs Temp Pulse Pulse Resp BP Pulse Ox O2 Del Method 03/25/25 15:33 36.3 C L 72 18 138/74 94 Room Air 03/25/25 11:09 36.5 C 82 20 117/74 94 Room Air 03/25/25 09:15 Room Air 03/25/25 08:13 36.7 C 79 20 107/62 90 Room Air 03/25/25 07:29 71 PG Care Time/CCT Total # of Minutes Spent Total Time Spent with Patient: Total time spent is greater than 50% in coordination of care (as documented) at patient's floor/unit and/or counseling patient: [place] [address] SUB INP/OBS CARE 2/35MIN Patient Type Established Medical Decision Making Moderate Complexity Diagnoses Chest pain R07.9 Chest pain type: unspecified Chronic diastolic CHF (congestive heart failure) I50.32 Type 2 diabetes mellitus E11.9 Cor pulmonale I27.81 Dyspnea on exertion R06.09 YARI (obstructive sleep apnea) G47.33 GERD (gastroesophageal reflux disease) K21.9 Essential hypertension I10 Hypertension type: essential hypertension Dementia F03.90 Atrial flutter, paroxysmal I48.92 COPD (chronic obstructive pulmonary disease) J44.9 Hypothyroidism E03.9 Chronic interstitial cystitis N30.10 (1) Chest pain Chest pain type: unspecified Qualified Code(s): R07.9 - Chest pain, unspecified (8) Hypertension Hypertension type: essential hypertension Qualified Code(s): I10 - Essential (primary) hypertension
[2025-03-26] MEDS: LANTUS PER UNIT CHARGE SQ SCH (10:08)
[2025-03-26 11:57] VITALS: BP 148/70; PULSE 77; RESP 18; TEMP 97.5; O2SAT 94
--- NOTE | 2025-03-26 13:13 | Discharge Summary ---
Discharge Summary Date of Service March 26, 2025 Principal Dx & Hospital Course #1 = Principal Diagnosis (1) Chest pain: (2) Chronic diastolic CHF (congestive heart failure): (3) Type 2 diabetes mellitus: (4) Cor pulmonale: (5) Dyspnea on exertion: (6) YARI (obstructive sleep apnea): (7) GERD (gastroesophageal reflux disease): (8) Hypertension: (9) Dementia: (10) Atrial flutter, paroxysmal: (11) COPD (chronic obstructive pulmonary disease): (12) Hypothyroidism: (13) Chronic interstitial cystitis: Plan #HFpEF (acute on chronic) 84yo presents for increased chest pressure/shortness of breath and work of breathing placed on BiPAP en route (no hypoxia) and decreased work of breathing on arrival. Did have volume over load and weight gain. Baseline weight ~ 126 kg. Echo 03/21: EF 55-60%; LV systolic function normal. NO significant valvular heart disease. CXR 03/22: unchanged b/l parahilar pulmonary congestion. unchanged mild haziness in b/l lower zones & obscured CP angles, likely pleural effusion. Ca rdiomegaly. Troponin negative x 3 and BNP negative. Breathing much improved S/p 2 doses of 4mg IV Bumex & 2 doses of 500mg IV Acetazolamide. Bumex and spironolactone resumed at home dosing and maintaining weight. Unclear what caused this acute episodes. Continue daily weight monitoring. There is concerns she will require supplemental O2 - recommend overnight study or pulse ox before discharge from rehab. #Chronic Chambers, asymptomatic bacturia Follows with urology, due for catheter exchange in one week. CBC w/ resolution of leukocytosis. BC negative @ 48hrs. Urine culture negative. Patient asymptomatic from a urological standpoint at this time - abx discontinued. #Hyponatremia- acute on chronic. 2nd to HF and increased PO water intake - reommend repeat BMP in 3-4 days #Weakness, Ambulatory Dysfunction Patient reports 3 falls at [facility] in the month HEMODIALYSIS CHARGE NURSE PT/OT following - rec rehab, discharge to rehab today #Asthma - Continue usual inhalers #YARI - Oxygen via nasal cannula overnight, Currently not tolerating CPAP due to excess coughing #CKD - Creatinine stable #DM II A1c 6.8% on 03/12/2025. Continue home regimen Dispo: discharge to rehab today Notes For Next Care Provider may need CHF meds adjusted, unclear what tipped her off this admission, but maintaining well on home regimen. Admission HPI Per Admitting Provider 84yo female presented with increased work of breathing and shortness of breath/chest pressure, has been on/off over the past couple of weeks to months, epigastric/centrally located without radiation. Reports increased symptoms with ambulation/activity, and noticed decrease ability for ambulation over the past couple of weeks due to increased weakness. Chronic chambers at this time w/ recent cystoscopy for incontinence and hematuria. No abx. Denies fever/chills, no recent illness at [facility] per her being aware. Took her am Synthroid and protonix. Is on eliquis for history of aflutter, follows with Dr Lilly. Denies missing her Bumex, or increased salt intake but does have salty foods provided at [facility] per my personal awareness but did discuss weights up 135.9kg from 126.4kg last month without clear cause. Does have some minimal leg edema but daughter reporting not bad at all compared to usual.Some chronic redne ss to LE, nonpainful. She does have hx YARI but denies use of CPAP at this time and doesn't think she still has it because it "used to wake her up at night when she stopped breathing". Believes her prior ECHO w/ EF 40-45%, mitral valve prolapse - review of most recent dobutamine stress w/ EF improved, no MVP. CXR w/ cardiomegaly w/ pulmonary vascular congestion, small pleural effusions, dependent airspace opacities atelectasis vs PNA. Suspect CXR findings related to HF, but also concerns for possible UTI with recent cystoscopy and recent instrumentation and appearance of UA w/ weakness and will discuss treatment. No current CP/SOB laying fairly flat in bed. No nausea/vomiting, fever or chills. No lightheaded/dizziness. Discussed admission for diuretics, possible antibiotics and therapy evalus. Questions/concerns addressed at htis time. 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 Daughter at bedside during discussion. Hopeful to return to [facility] at discharge but will see how therapy evaluations go and encouraged to consider short term rehab to return to her [facility] rather than SNF as concerned by daughter for such. Per ER provider, was put on BiPAP on arrival, given Nitro and no hypoxia, currently on room air. Discharge Exam General: NAD, VS as above Resp: normal respiratory effort, lungs clear to auscultation CV: RRR, no murmur, Abd: normal bowel sounds, non tender, no hepatosplenomegaly Extremities: Moves all extremities, non pitting LE edema, color changes consistent with venous stasis Neuro: A&O x3, Skin: intact, no lesions noted Discharge Plan Discharge Items Patient Disposition: Transfer [facility] Fac Reason For Visit: SOB/CP, SUSPECTED CHF, POSSIBLE UTI, WEAKNESS Discharge Diagnosis: CHF exacerbation Condition on Discharge: Fair Activity: Resume your previous activity Activity Comment: work with therapy to get stronger Weightbearing: Full weightbearing Non-emergency contact: Primary Care Provider Call non-emergency contact if: you have any medication questions, your symptoms worsen, your pain is not controlled and your temperature is above 101 Follow-up/Referrals: Jame Ruth MD [Primary Care Provider] - (follow up after discharge from rehab ) Diet: Heart Healthy and Low Sodium (2gm) Fluids: 2000ml (8 cups) Addtl Attending Provider Instructions: Ms. Rivero, You were hospitalized after having increased work of breathing and shortness of breath, this was found to be from a heart failure exacerbation. You recieved extra diuresis and responded well. For now we will keep you on the same dose of bumex, 4mg daily. You should continue to weigh yourself everday. If you are gaining more than 2 pounds in a day or 5 pounds in a week, this is a sign that you are gaining fluid and you need to contact your doctor. Continue to monitor your salt intake. You should also monitor your fluid intake. No more than 2L of fluid a day. You also had low sodium levels while you were here, lower than your normal. This was likely from drinking so much water. Please follow up with your PCP after discharge from rehab, work hard so you can get stronger and go back to [facility]. For [place] Care: Please measure daily weights Check BMP in 2-3 days for hyponatremia monitoring \\ consider 2 - step and/or overnight pulse monitoring for oxygen needs prior to discharge Pending Studies at Discharge: No Stand-Alone Forms: [facility] Skilled Items Patient informed of condition?: Yes DNR: No Discharge Level of Care: Skilled Communicable Disease: No Discharge Prognosis: Stable Lines: None Urinary Catheter: No Medications and DC Order Prescriptions: Continued duloxetine 60 mg capsule,delayed release(DR/EC) 60 mg PO BID Qty: 60 0RF (DME) blood sugar diagnostic Strip See Rx Instructions .ROUTE .MEDSUPPLY Qty: 180 3RF Rx Instructions: Test blood sugar twice daily (DME) blood-glucose meter [OneTouch Ultra2 Meter] Misc See Rx Instructions .Route Qty: 1 0RF Rx Instructions: TEST BSG THREE TIMES DAILY; DX CODE- E11.59 (DME) Novofine Autocover 30 gauge x 1/3" needle See Rx Instructions .ROUTE .MEDSUPPLY Qty: 300 3RF Rx Instructions: Use to inject insulin 3 times daily dx E11.42 ketoconazole 2 % shampoo 1 ea TOPICAL 2XWK Qty: 120 1RF Patient Comments: Use on Tuesday and Tuesday (DME) Unifine SafeControl Pen Needle 30 gauge x 3/16" needle See Rx Instructions .Route Qty: 100 11RF Rx Instructions: As three times a day with lantus famotidine 20 mg tablet 20 mg PO BID Qty: 180 3RF pantoprazole 40 mg tablet,delayed release (DR/EC) 40 mg PO QAM Qty: 90 3RF Rx Instructions: 30minutes prior to breakfast gabapentin 300 mg capsule 300 mg PO TID Qty: 90 5RF nystatin-triamcinolone 100,000-0.1 unit/gram-% ointment 1 applic topical BID PRN (Reason: itching) Qty: 60 3RF Rx Instructions: MAR has oil listed Eliquis 5 mg tablet 5 mg PO BID Qty: 180 3RF Rx Instructions: TAKE 1 TABLET BY MOUTH TWICE DAILY (AFIB) (DME) OneTouch Ultra Test Strip See Rx Instructions .Route Qty: 300 3RF Rx Instructions: use to test three times daily (DME) lancets 30 gauge misc See Rx Instructions .ROUTE .MEDSUPPLY Qty: 300 5RF Rx Instructions: TEST THREE TIMES A DAY tramadol 50 mg tablet 50 mg PO Q12H PRN (Reason: Pain) Qty: 60 5RF melatonin 10 mg capsule 10 mg PO HS diphenhydramine HCl [Banophen] 50 mg capsule 50 mg PO TID PRN (Reason: Itching) cetirizine [Allergy Relief (cetirizine)] 10 mg tablet 10 mg PO BID diclofenac sodium 1 % gel 2 g topical QID PRN (Reason: JOINT PAIN) guaifenesin [Mucinex] 600 mg tablet extended release 12hr 600 mg PO Q12H PRN (Reason: Congestion) polyethylene glycol 3350 [Miralax] 17 gram Powder In Packet 17 g PO DAILY PRN (Reason: Constipation) acetaminophen [Tylenol Extra Strength] 500 mg Tablet 1,000 mg PO Q8 PRN (Reason: Pain) cyclosporine [Restasis] 0.05 % Dropperette 1 drp OPB AMHS Rx Instructions: 1 DROP TO BOTH EYES BID Systane Ultra 0.4-0.3 % Drops 1 drp OPB Q2H PRN (Reason: DRY EYES WHILE AWAKE) lorazepam 0.5 mg tablet 0.5 mg PO DIRECTED Patient Comments: Take in the afternoon for anxiety Rx Instructions: Take in the afternoon for anxiety mirtazapine 45 mg tablet 45 mg PO HS Systane Gel 0.3 % Gel 1 drp OPB HS ferrous sulfate [Iron (ferrous sulfate)] 325 mg (65 mg iron) Tablet 1 tab PO 3XWK Rx Instructions: every Tuesday, Tuesday, and Tuesday. lorazepam 1 mg tablet 1 mg PO QPM sertraline 100 mg tablet 100 mg PO QAM ergocalciferol (vitamin D2) 1,250 mcg (50,000 unit) capsule 1,250 mcg PO WK Patient Comments: TAKE DAILY ON WEDNESDAYS X 12 WEEKS - STOP 03/28/25 - 03/21/25 Rx Instructions: TAKE DAILY ON WEDNESDAYS X 12 WEEKS STOP 03/28/25 levothyroxine 200 mcg tablet 200 mcg PO DAILYBB Rx Instructions: TAKE 30-40 MIN PRIOR TO BREAKFAST OR OTHER MEDS conjugated estrogens 0.625 mg/gram cream 1,000 mg vaginal 3XWK Rx Instructions: pea sized amount every TUE, WED, & FRI potassium chloride 40 mEq/15 mL liquid 20 meq PO BID Rx Instructions: 7.5 ML = 20 MEQ Atrovent HFA 17 mcg/actuation HFA aerosol inhaler 2 puff INHALATION QID donepezil 10 mg Tablet 10 mg PO HS nystatin 100,000 unit/gram powder 1 applic TOPICAL BID PRN (Reason: Rash) Rx Instructions: APPLY TO AFFECTED AREAS FOR RASH multivitamin [Daily-Hipolito] Tablet 1 tab PO QAM glucosamine sulfate [Glucosamine] 500 mg Tablet 1,500 mg PO QAM Rx Instructions: administer with a meal amitriptyline 100 mg tablet 100 mg PO QPM calcium carbonate-vitamin D3 [Calcium 600 + D(3)] 600 mg-10 mcg (400 unit) Tablet 1 tab PO BID bumetanide 2 mg tablet 4 mg PO QAM Rx Instructions: TAKE 2 TABS (4 MG) BY MOUTH ONCE DAILY FOR EDEMA hydroxyzine HCl 25 mg Tablet 25 mg PO BID Humulin 70/30 U-100 KwikPen 100 unit/mL (70-30) insulin pen 50 unit SUBCUT QDB Humulin 70/30 U-100 KwikPen 100 unit/mL (70-30) insulin pen 45 unit SUBCUT QDL Humulin 70/30 U-100 KwikPen 100 unit/mL (70-30) insulin pen 15 unit SUBCUT QDD Rx Instructions: PCP aware of continued refusal and recommends anything under 150 is a reasonable refusal magnesium hydroxide [Milk of Magnesia] 400 mg/5 mL Suspension 800 - 1,600 mg PO DAILY PRN (Reason: Constipation) Remedy Calazime Protect Paste 0.2-20 % Paste 1 applic TOPICAL TID PRN (Reason: Irritation) spironolactone 25 mg tablet 25 mg PO QAM methenamine hippurate 1 gram tablet 1 g PO QPM vitamin B complex Tablet 1 tab PO QAM montelukast 10 mg tablet 10 mg PO QPM albuterol sulfate 90 mcg/actuation HFA aerosol inhaler 2 puff INHALATION QID PRN (Reason: Shortness Of Breath) atenolol 50 mg tablet 50 mg PO QAM mirabegron [Myrbetriq] 50 mg tablet extended release 24 hr 50 mg PO QAM fluticasone furoate-vilanterol [Breo Ellipta] 100-25 mcg/dose blister with device 1 inh inhalation QAM Discharge Orders: Discharge Order (Routine); Ordered 03/26/25 Ordered By: Maricarmen Elliott/Other Patient Handouts: Heart Failure Flare Up Signs, Heart Failure: Breathe More Easily Admission Data Admit Date/Time: 03/21/25 11:25 Attending Provider: Floyd Vences Admit Provider: Eric Arevalo Primary Care Provider: Jame Ruth V. Other Providers: Eric Arevalo; [place],[facility] [place] Other Interventions: Discharge Summary Assessment (RN) Last Done: 03/26/25 15:22 Hospital Stay Data Consultations 03/21/25 10:07 ED Decision to Admit Stat Pending Results Patient Have Any Pending Studies at Discharge: No Discharge Instructions Given to Patient (Per Discharging Provider) Ms. Rivero, [place] were hospitalized after having increased work of breathing and shortness of breath, this was found to be from a heart failure exacerbation. You recieved extra diuresis and responded well. For now we will keep you on the same dose of bumex, 4mg daily. You should continue to weigh yourself everday. If you are gaining more than 2 pounds in a day or 5 pounds in a week, this is a sign that you are gaining fluid and you need to contact your doctor. Continue to monitor your salt intake. You should also monitor your fluid intake. No more than 2L of fluid a day. You also had low sodium levels while you were here, lower than your normal. This was likely from drinking so much water. Please follow up with your PCP after discharge from rehab, work hard so you can get stronger and go back to [facility]. For [place] Care: Please measure daily weights Check BMP in 2-3 days for hyponatremia monitoring \\ consider 2 - step and/or overnight pulse monitoring for oxygen needs prior to discharge Supervising Physician Co-Signing Physician Notes The patient was not seen by me. The chart was reviewed. Case discussed with VIC Richards. Agree with assessment and plan Total Time Total Time Spent Total Time Spent (In Minutes): Time spent day of discharge 35 minutes including direct patient care, medication reconciliation, documentation, review of labs and images, and coordination of care. Family updated at bedside 03/26 Coding Level of Care Code 96129 INP/OBS DISCH >30 MIN Diagnoses Chest pain R07.9 Chest pain type: unspecified Chronic diastolic CHF (congestive heart failure) I50.32 Type 2 diabetes mellitus E11.9 Cor pulmonale I27.81 Dyspnea on exertion R06.09 YARI (obstructive sleep apnea) G47.33 GERD (gastroesophageal reflux disease) K21.9 Essential hypertension I10 Hypertension type: essential hypertension Dementia F03.90 Atrial flutter, paroxysmal I48.92 COPD (chronic obstructive pulmonary disease) J44.9 Hypothyroidism E03.9 Chronic interstitial cystitis N30.10
== END 2025-03-26 16:13 | DRG 291 ==
LOC: ED 08:10 → 2N 09:00 → SUATTDRO 11:25 → EDINP 11:25 → INTOOBSV 11:25 → 2N 16:06
DX: Z86.718 Personal history of other venous thrombosis and embolism; E11.22 Type 2 diabetes mellitus with diabetic chronic kidney disease; J44.9 Chronic obstructive pulmonary disease, unspecified; R07.9 Chest pain, unspecified; E87.1 Hypo-osmolality and hyponatremia; Z79.899 Other long term (current) drug therapy; I27.81 Cor pulmonale (chronic); N30.10 Interstitial cystitis (chronic) without hematuria; Z79.4 Long term (current) use of insulin; F03.90 Unspecified dementia, unspecified severity, without behavioral disturbance, psychotic disturbance, mood disturbance, and anxiety; Z79.890 Hormone replacement therapy; E03.9 Hypothyroidism, unspecified; Z88.8 Allergy status to other drugs, medicaments and biological substances; Z87.891 Personal history of nicotine dependence; R06.09 Other forms of dyspnea; I13.0 Hypertensive heart and chronic kidney disease with heart failure and stage 1 through stage 4 chronic kidney disease, or unspecified chronic kidney disease; Z79.01 Long term (current) use of anticoagulants; R26.2 Difficulty in walking, not elsewhere classified; I48.92 Unspecified atrial flutter; N18.9 Chronic kidney disease, unspecified; K21.9 Gastro-esophageal reflux disease without esophagitis; G47.33 Obstructive sleep apnea (adult) (pediatric); J45.909 Unspecified asthma, uncomplicated; I50.33 Acute on chronic diastolic (congestive) heart failure; Z91.048 Other nonmedicinal substance allergy status